=== PATIENT | male | born 1930 | race Caucasian/White ===

== ENCOUNTER 2016-06-02 10:51 | Inpatient (IN) | payer OTHER ==
[~2016-06-02] VITALS: Ht 167.6 cm; Wt 74.0 kg
[~2016-06-02 10:51] MED LIST: ALBU1AER9 INH; ATOR-24 PO; BCTROWC TOP; CARV3.12 PO; CHOL100010 PO; CRAN1CAP PO; DIGO0.122 PO; FLNIN NAE; ISOS30TA3 PO; LACTCHW3 PO; MAGN400T6 PO; META1TAB22 PO; MULTTAB58 PO; OMEP40CA PO; SYMIN160 INH
[2016-06-02 10:58] VITALS: Ht 167.6 cm; Wt 74.0 kg
[2016-06-02] MEDS ORDERED: METHYLPREDNISOLONE 125 MG VIAL IV STA (11:05)
--- NOTE | 2016-06-02 11:09 | EMERGENCY ROOM VISIT NOTE ---
History Report prepared by Miller: Guy Díaz Under the Supervision of: Dr. Raul Lizama M.D. First contact with patient: 10:59 Chief Complaint: SHORTNESS OF BREATH Stated Complaint: RESPIRATORY DIFFICULTY History of Present Illness The patient is an 85 year old male who presents to the Emergency Room with complaints of persistent shortness of breath that started 2 weeks ago. He says he also has a cough, which makes it really hard to sleep at night. The patient says he does not use oxygen at home. His caregiver wanted the patient to be checked for a UTI. He also has been having diarrhea and intermittent sharp abdominal pain. The patient denies any fevers or leg swelling. He is a non- smoker and has no history of asthma or COPD. Per the nursing staff, the patient was 88% oxygen on route and received a Duoneb. The patient says his has been sick for 2 months. Source of History: patient, nursing staff Onset: 2 weeks ago Position: other (global - shortness of breath) Symptom Intensity: 88% oxygen Timing: other (persistent) Associated Symptoms: + abdominal pain, + cough, + diarrhea, No fevers Note: Associated symptoms: Denies leg swelling. Review of Systems See HPI for pertinent positives & negatives. A total of 10 systems reviewed and were otherwise negative. Past Medical & Surgical Medical Problems: (1) Back Surgery (2) Benign hypertension (3) Colostomy (4) COPD (5) COPD exacerbation (6) coronary artery disease with stent (7) Family history of cancer (8) Hyperlipidemia (9) Ileostomy (10) Paraplegia Family History Cancer Heart disease Stroke Social History Smoking Status: Never Smoker Alcohol Use: none Drug Use: none Marital Status: Housing Status: lives with family Occupation Status: retired Current/Historical Medications Scheduled Atorvastatin (Lipitor), 40 MG PO DAILY Budesonide/Formoterol Fumarate (Symbicort 160/4.5 Inhaler ), 1 PUFFS INH BID Carvedilol (Coreg), 3.125 MG PO BIDM Cholecalciferol (Vitamin D 1000 Unit), 1,000 INTER.UNIT PO DAILY Cranberry-Cholecalciferol (Super Cranberry/Vitamin D), 1 TAB PO DAILY Digoxin (Digox), 1 TAB PO DAILY Fluticasone Propionate (Nasal) (Flonase Allergy Relief), 1 SPRAY ABRRY DAILY Isosorbide Mononitrate Ext Rel (Imdur Ext Rel), 15 MG PO QAM Lactobacillus (Lactinex), 1 TABLET PO BID Magnesium Oxide (Mag-Ox), 400 MG PO BID Multiple Vitamin (Multivitamin), 1 TAB PO DAILY Omeprazole (Prilosec), 40 MG PO DAILY Oxybutynin Chloride (Oxybutynin Chloride), 1 TAB PO QID Scheduled PRN Albuterol Sulfate (Proair Respiclick), 1-2 PUFFS INH Q4 PRN for Shortness of Breath Guaifenesin Ext Rel (Mucinex Ext Rel), 600 MG PO Q12 PRN for congestion Metaxalone (Skelaxin), 800 MG PO Q8 PRN for PRN Saline (Saline Nasal Taylor), 1 SPRAY BARRY DAILY PRN for DRYNESS Allergies Coded Allergies: Food (Verified Allergy, Severe, ANAPHYLAXIS WITH RADISHES/ DIFFICULTY BREATHING HORSERADISH, 06/02/16) Banana (Verified Allergy, Mild, 06/02/16) NSAIDs (Verified Allergy, Unknown, internal bleeding, 06/02/16) Sulfa Drugs (Verified Allergy, Unknown, 06/02/16) Physical Exam Vital Signs Date Time Temp Pulse Resp B/P Pulse Ox O2 Delivery O2 Flow Rate FiO2 06/02/16 12:58 101/72 06/02/16 12:51 75 35 100 06/02/16 12:33 65 06/02/16 12:21 69 18 100 06/02/16 12:05 101/69 06/02/16 11:51 71 19 100 06/02/16 11:49 75 20 100 Nasal Cannula 5.0 06/02/16 11:21 75 27 98 06/02/16 11:02 81 06/02/16 10:58 94 Room Air 4.0 06/02/16 10:58 36.8 80 22 134/66 94 Nasal Cannula 4.0 06/02/16 10:58 88 Room Air 06/02/16 10:57 134/66 Physical Exam GENERAL: Patient is ill appearing and in moderate distress. HEENT: No acute trauma, normocephalic atraumatic, mucous membranes moist, no nasal congestion, no scleral icterus. NECK: No stridor, no adenopathy, no meningismus, trachea is midline. LUNGS: Dyspneic and tachypneic. Diffuse tight lung sounds with wheezing and crackles throughout. HEART: Regular rate and rhythm. No murmurs, rubs, gallops appreciated. ABDOMEN: Soft, nontender, mildly hyperactive bowel sounds positive, no masses appreciated, no peritonitis. Ostomy on right abdomen with liquid green stool. BACK: No midline tenderness, no CVA tenderness EXTREMITIES: Normal motion all extremities, no cyanosis, no edema. NEUROLOGIC: Alert and oriented, no acute motor or sensory deficits, no focal weakness, cranial nerves grossly intact. SKIN: No rash, no jaundice, no diaphoresis. Medical Decision & Procedures ER Provider Diagnostic Interpretation: X ray results are stated below per my interpretation and the radiologist's interpretation. CHEST ONE VIEW PORTABLE CLINICAL HISTORY: Shortness of breath. COMPARISON STUDY: Chest radiograph May 20, 2015. FINDINGS: A thoracolumbar spine fusion and left subclavian pacemaker/AICD are in place. No pneumothorax or pleural effusion is present. Lung hyperinflation is suspected. No consolidation is identified. Linear left basilar opacity is suggestive atelectasis. Emphysema is noted. The appearance of the chest is unchanged. There is no evidence of pulmonary edema. IMPRESSION: No acute findings. No change in appearance of the chest. Electronically signed by: Jerzy Pinto M.D. 06/02/2016 11:40 AM Dictated Date/Time: 06/02/2016 11:39 AM Laboratory Results 06/02/16 11:21 Red Blood Count 5.38, Mean Corpuscular Volume 89.2, Mean Corpuscular Hemoglobin 31.0, Mean Corpuscular Hemoglobin Concent 34.8, Mean Platelet Volume 10.4, Neutrophils (%) (Auto) 75.3, Lymphocytes (%) (Auto) 12.1, Monocytes (%) (Auto) 10.0, Eosinophils (%) (Auto) 1.8, Basophils (%) (Auto) 0.5, Neutrophils # (Auto ) 5.74, Lymphocytes # (Auto) 0.92, Monocytes # (Auto) 0.76, Eosinophils # (Auto ) 0.14, Basophils # (Auto) 0.04 06/02/16 11:21 Test 06/02/16 11:20 06/02/16 11:21 06/02/16 11:30 06/02/16 12:00 Bedside Lactic Acid Venous 1.95 mmol/L (0.90-1.70) White Blood Count 7.62 K/uL (4.8-10.8) Red Blood Count 5.38 M/uL (4.7-6.1) Hemoglobin 16.7 g/dL (14.0-18.0) Hematocrit 48.0 % (42-52) Mean Corpuscular Volume 89.2 fL (80-100) Mean Corpuscular Hemoglobin 31.0 pg (25-34) Mean Corpuscular Hemoglobin Concent 34.8 g/dl (32-36) Platelet Count 142 K/uL (130-400) Mean Platelet Volume 10.4 fL (7.4-10.4) Neutrophils (%) (Auto) 75.3 % Lymphocytes (%) (Auto) 12.1 % Monocytes (%) (Auto) 10.0 % Eosinophils (%) (Auto) 1.8 % Basophils (%) (Auto) 0.5 % Neutrophils # (Auto) 5.74 K/uL (1.4-6.5) Lymphocytes # (Auto) 0.92 K/uL (1.2-3.4) Monocytes # (Auto) 0.76 K/uL (0.11-0.59) Eosinophils # (Auto) 0.14 K/uL (0-0.5) Basophils # (Auto) 0.04 K/uL (0-0.2) RDW Standard Deviation 45.3 fL (36.4-46.3) RDW Coefficient of Variation 13.8 % (11.5-14.5) Immature Granulocyte % (Auto) 0.3 % Immature Granulocyte # (Auto) 0.02 K/uL (0.00-0.02) Prothrombin Time 11.2 SECONDS (9.0-12.0) Prothromb Time International Ratio 1.0 (0.9-1.1) Anion Gap 9.0 mmol/L (3-11) Est Creatinine Clear Calc Drug Dose 43.5 ml/min Estimated GFR () 70.1 Estimated GFR (Non- 60.5 BUN/Creatinine Ratio 12.2 (10-20) Calcium Level 8.9 mg/dl (8.5-10.1) Magnesium Level 2.0 mg/dl (1.8-2.4) Total Creatine Kinase 105 U/L (39-308) Creatine Kinase MB 2.7 ng/ml (0.5-3.6) Creatine Kinase MB Ratio 2.6 (0-3.0) Pro-B-Type Natriuretic Peptide 763 pg/ml (0-1800) Digoxin Level 0.9 ng/ml (0.8-2.0) Influenza Type A (RT-PCR) POS for Influ A (NEG) Influenza Type A Antigen Neg for Influ A (NEG) Influenza Type B Antigen Neg for Influ B (NEG) Influenza Type B (RT-PCR) Neg for Influ B (NEG) Urine Color YELLOW Urine Appearance TURBID (CLEAR) Urine pH 7.0 (4.5-7.5) Urine Specific [place] 1.007 (1.000-1.030) Urine Protein NEG (NEG) Urine Glucose (UA) NEG (NEG) Urine Ketones NEG (NEG) Urine Occult Blood 1+ (NEG) Urine Nitrite POS (NEG) Urine Bilirubin NEG (NEG) Urine Urobilinogen NEG (NEG) Urine Leukocyte Esterase LARGE (NEG) Urine WBC (Auto) >30 /hpf (0-5) Urine RBC (Auto) 0-4 /hpf (0-4) Urine Hyaline Casts (Auto) 10-30 /lpf (0-5) Urine Epithelial Cells (Auto) >30 /lpf (0-5) Urine Bacteria (Auto) 4+ (NEG) Urine Crystals AMORPHOUS SEDIMENT (NONE Urine Pathogenic Casts 1-5 GRANULAR CASTS /lpf (0) Date/Time Source Procedure Growth Status 06/02/16 11:35 Stool C.difficile Toxin B Gene (PCR) - Final Positive for C. difficile toxin B gene Complete Laboratory results as reviewed by me. Medications Administered Medications (Trade) Dose Ordered Sig/Eloisa Route Start Time Stop Time Status Last Admin Dose Admin Albuterol/ Ipratropium (Duoneb) 12 ml ONE ONCE INH 06/02/16 11:15 06/02/16 11:16 DC 06/02/16 11:43 12 ML Methylprednisolone Sodium Succinate (Solu-Medrol IV) 80 mg NOW STAT IV 06/02/16 11:05 06/02/16 11:08 DC 06/02/16 11:44 80 MG Levofloxacin (Levaquin / D5W) 750 mg NOW STAT IV 06/02/16 12:53 06/02/16 12:54 DC 06/02/16 13:09 750 MG ECG Indication: SOB/dyspnea Rate (beats per minute): 68 Rhythm: other (ventricularly paced) Findings: no acute ischemic change, no ectopy ED Course 1059: The patient was evaluated in room C2B. A complete history and physical exam was performed. 1105: Ordered Solu-Medrol IV 80 mg IV. 1115: Ordered Duoneb 12 ml INH. 1247: I reevaluated the patient and he notes his breathing has improved but he still feels short of breath. The patient verbally expressed understanding and agreement of the treatment plan. The patient will be evaluated for further treatment. 1253: Ordered Levaquin / D5W 750 mg IV. 1314: I discussed the patient with Dr. Cydney LEONARD hospitalist - he will evaluate the patient for further treatment. Medical Decision Differential: Infectious, Reactive Airway Disease, Pneumonia, Pneumothorax, COPD , CHF, ACS, Pulmonary Embolism, MSK, GI, Dissection, amongst other etiologies entertained. 85 yr old male with acute worsening of cough and found to be hypoxic. he has bronchitis by exam. No clear evidence of CHF. No pneumonia. Symptoms and labs /workup not consistent with ACS. No previous COPD per patient. Does have what appears to be UTI as well. Will treat with Levaquin as normal QTC. Stable other than hypoxia which remained OK on NC. Symptoms consistent with bronchitis and not PE. Consults Time Called: [phone] Consulting Physician: Dr. Cydney LEONARD [facility] Returned Call: [phone] I discussed the patient with Dr. Cydney leon - he will evaluate the patient for further treatment. Impression Primary Impression: Bronchitis Additional Impression: Hypoxia Scribe Attestation The scribe's documentation has been prepared under my direction and personally reviewed by me in its entirety. I confirm that the note above accurately reflects all work, treatment, procedures, and medical decision making performed by me. Departure Information Dispostion Being Evaluated By Hospitalist Referrals Iam Yang M.D. (PCP) Patient Instructions My [facility] Problem Qualifiers
[2016-06-02] MEDS ORDERED: ALBUT/IPRATROP 3MG/0.5MG NEB 3 ML VIAL INH ONE (11:15)
--- NOTE | 2016-06-02 11:41 | DIAGNOSTIC IMAGING REPORT ---
CHEST ONE VIEW PORTABLE CLINICAL HISTORY: Shortness of breath. COMPARISON STUDY: Chest radiograph May 20, 2015. FINDINGS: A thoracolumbar spine fusion and left subclavian pacemaker/AICD are in place. No pneumothorax or pleural effusion is present. Lung hyperinflation is suspected. No consolidation is identified. Linear left basilar opacity is suggestive atelectasis. Emphysema is noted. The appearance of the chest is unchanged. There is no evidence of pulmonary edema. IMPRESSION: No acute findings. No change in appearance of the chest. Electronically signed by: Jerzy Pinto M.D. 06/02/2016 11:40 AM Dictated Date/Time: 06/02/2016 11:39 AM
[2016-06-02 11:49] VITALS: PULSE 75; O2SAT 100
[2016-06-02 12:00] LABS: BASO % 0.5 %; BASO ABS # 0.04 K/uL (0-0.2); COMPLETE YES; EOS % 1.8 %; IG% 0.3 %; LYMPH % 12.1 %; LYMPH ABS # 0.92 K/uL (1.2-3.4); MEAN CELL VOLUME 89.2 fL (80-100); MEAN CORPUSCULAR HGB CONC 34.8 g/dl (32-36); MEAN PLATELET VOLUME 10.4 fL (7.4-10.4); NEUT % 75.3 %; PLATELET COUNT 142 K/uL (130-400); RED BLOOD COUNT 5.38 M/uL (4.7-6.1); WHITE BLOOD COUNT 7.62 K/uL (4.8-10.8)
[2016-06-02 12:05] LABS: CALCIUM 8.9 mg/dl (8.5-10.1); POTASSIUM 3.8 mmol/L (3.5-5.1)
[2016-06-02 12:07] LABS: BUN/CREATININE RATIO 12.2 (10-20); CREATININE 1.1 mg/dl (0.60-1.40)
[2016-06-02 12:12] LABS: CKMB/CK RATIO 2.6 (0-3.0)
[2016-06-02 12:28] LABS: URINE APPEARANCE TURBID (CLEAR); URINE BILIRUBIN NEG (NEG); URINE COLOR YELLOW; URINE EPITHELIAL CELL AUTO >30 /lpf (0-5); URINE NITRITE POS (NEG); URINE SPECIFIC GRAVITY 1.007 (1.000-1.030); UROBILINOGEN NEG (NEG); ZZURINE CULT IF INDIC CATH YES
[2016-06-02 12:30] LABS: MANUAL MICROSCOPIC REQUIRED? NO; REVIEW REQ? YES
[2016-06-02] MEDS ORDERED: LEVAQUIN 750MG / 150ML D5W IV STA (12:53)
[2016-06-02] MEDS ORDERED: DIGO0.1219 PO (13:16)
[2016-06-02] MEDS ORDERED: DTR5 PO (13:16)
[2016-06-02] MEDS ORDERED: ALBU18002 INH (13:16)
[2016-06-02] MEDS ORDERED: FLUT0.15 NAE (13:16)
[2016-06-02] MEDS ORDERED: CHOL100027 PO (13:16)
[2016-06-02] MEDS ORDERED: SALI1SPR3 NAE (13:16)
[2016-06-02] MEDS ORDERED: GFNSR600 PO (13:16)
[2016-06-02] MEDS ORDERED: OMEP40CA41 PO (13:16)
[2016-06-02 13:27] LABS: URINE PATH CASTS 1-5 GRANULAR CASTS /lpf (0)
[2016-06-02] MEDS ORDERED: ACETAMINOPHEN 325 MG TAB PO PRN (13:30)
[2016-06-02] MEDS ORDERED: ALUMINUM/MAGNESIUM/SIMETH (MAALOX MAX) 30 ML UDC PO PRN (13:30)
[2016-06-02] MEDS ORDERED: POLYETHYLENE (MIRALAX) 17 GM PACK PO PRN (13:30)
[2016-06-02] MEDS ORDERED: ONDANSETRON INJ 2 MG/ML 2 ML VIAL IV PRN (13:30)
[2016-06-02] MEDS ORDERED: MAGNESIUM HYDROXIDE SUSP 30 ML UDC PO PRN (13:30)
[2016-06-02] MEDS ORDERED: SODIUM CHLORIDE 0.65% NA SOLN 45 ML (OCEAN) NAE PRN (14:15)
[2016-06-02] MEDS ORDERED: GUAIFENESIN 600 MG TABCR PO PRN (14:15)
[2016-06-02] MEDS ORDERED: METAXALONE PO PRN ×2 (14:15→15:45)
[2016-06-02 14:52] LABS: INFLUENZA B PCR Neg for Influ B (NEG)
[2016-06-02 14:55] LABS: INFLUENZA A PCR POS for Influ A (NEG)
[2016-06-02] MEDS ORDERED: METRONIDAZOLE 500 MG TAB PO ONE (14:55)
[2016-06-02] MEDS ORDERED: SODIUM CHLORIDE 0.9% 1000ML 1,000 ML IV SCH (15:00)
[2016-06-02 15:16] VITALS: BP 117/69; PULSE 74; TEMP 36.8; O2SAT 95
[2016-06-02 15:55] LABS: PROTHROMBIN TIME (PATIENT) 11.2 SECONDS (9.0-12.0)
[2016-06-02 16:00] VITALS: PULSE 73; O2SAT 95
[2016-06-02] MEDS: ALBUT/IPRATROP 3MG/0.5MG NEB 3 ML VIAL INH SCH ×2 (16:00→19:53)
--- NOTE | 2016-06-02 16:25 | DIAGNOSTIC IMAGING REPORT ---
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 Generalized abdominal pain. COMPARISON: Abdominal series 05/20/2015. FINDINGS: Pacemaker wires are noted. Extensive thoracolumbar spinal fusion hardware and an IVC filter are again noted. There is a Gupta catheter overlying the expected location of the bladder. The bones are osteopenic. There is suture material within the deep pelvis. There appears to be a right lower quadrant ostomy. Multiple dilated air-filled loops of large and small bowel. No pneumoperitoneum. No pneumatosis. Stable calcification within the right side the abdomen. IMPRESSION: Mildly dilated gas-filled loops of large and small bowel which is similar to the prior study. This favors an ileus. Electronically signed by: Melquiades Burnett M.D. 06/02/2016 4:24 PM Dictated Date/Time: 06/02/2016 4:20 PM
--- NOTE | 2016-06-02 16:51 | History and Physical ---
History & Physical Date & Time of Service: Jun 02, 2016 at 16:47 Chief Complaint: Copd Exacerbation Primary Care Physician: Iam Yang M.D. History of Present Illness Source: patient Mr. 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 He states that he normally does not have a chronic cough but his has been sick x 2 months and he feels that he got sick from her. He states that he has an intermittently productive cough of clear sputum that has improved some with the use of OTC Mucinex. Does note intermittent wheezing. He does not utilize home O2. En route, pulse ox noted to be 88%. Reports associated intermittent sharp abdominal pain that he states has been present for almost a year and is manageable. Pain is located at the site of his ileostomy. Takes Pepto-Bismol which resolves the pain. Does report associated diarrhea. As well, patient has an indwelling Gupta that gets changed monthly by home nursing which he reports he hasn't had a UTI in about a month. He does get frequent UTIs and follows with Dr. Taveras with [facility]. He does not have sensation from the upper abdomen down to his legs due to his T12 fracture. Patient follows with cardiology franklin Goetz and reports an appointment next in preparation for a new pacemaker. He denies fever/chills, CP, N/V, dysuria, or constipation. In ED, CXR revealed hyperinflated lungs with flattened diaphragm, no consolidation or pleural effusions. Lactic acid 1.95. C. Diff toxin positive. U/ A with 1+ blood, positive nitrite, large leuks, 4+ bacteria. He is afebrile without leukocytosis. He will be admitted to Med/Surg with continuous pulseox and contact precautions for C. Diff. Past Medical/Surgical History Medical Problems: (1) Back Surgery Status: Resolved (2) Benign hypertension Status: Chronic (3) Colostomy Status: Chronic (4) coronary artery disease with stent Status: Chronic (5) Family history of cancer Status: Chronic (6) Hyperlipidemia Status: Chronic (7) Ileostomy Status: Resolved (8) Paraplegia Status: Chronic Family History Cancer Heart disease Stroke Social History Smoking Status: Never Smoker Drug Use: none Marital Status: Housing status: lives with family Occupational Status: retired Immunizations History of Influenza Vaccine: No History of Tetanus Vaccine?: Unknown Tetanus Immunization Date: Jan 22, 2009 History of Pneumococcal: Yes Pneumococcal Date: Mar 27, 2011 History of Hepatitis B Vaccine: Unknown Multi-Drug Resistant Organisms History of MDRO: Yes Type of MDRO: VRE Allergies Coded Allergies: Food (Verified Allergy, Severe, ANAPHYLAXIS WITH RADISHES/ DIFFICULTY BREATHING HORSERADISH, 06/02/16) Banana (Verified Allergy, Mild, 06/02/16) NSAIDs (Verified Allergy, Unknown, internal bleeding, 06/02/16) Sulfa Drugs (Verified Allergy, Unknown, 06/02/16) Home Medications Scheduled Atorvastatin (Lipitor), 40 MG PO DAILY Budesonide/Formoterol Fumarate (Symbicort 160/4.5 Inhaler ), 1 PUFFS INH BID Carvedilol (Coreg), 3.125 MG PO BIDM Cholecalciferol (Vitamin D 1000 Unit), 1,000 INTER.UNIT PO DAILY Cranberry-Cholecalciferol (Super Cranberry/Vitamin D), 1 TAB PO DAILY Digoxin (Digox), 1 TAB PO DAILY Fluticasone Propionate (Nasal) (Flonase Allergy Relief), 1 SPRAY BARRY DAILY Isosorbide Mononitrate Ext Rel (Imdur Ext Rel), 15 MG PO QAM Lactobacillus (Lactinex), 1 TABLET PO BID Magnesium Oxide (Mag-Ox), 400 MG PO BID Multiple Vitamin (Multivitamin), 1 TAB PO DAILY Omeprazole (Prilosec), 40 MG PO DAILY Oxybutynin Chloride (Oxybutynin Chloride), 1 TAB PO QID Scheduled PRN Albuterol Sulfate (Proair Respiclick), 1-2 PUFFS INH Q4 PRN for Shortness of Breath Guaifenesin Ext Rel (Mucinex Ext Rel), 600 MG PO Q12 PRN for congestion Metaxalone (Skelaxin), 800 MG PO Q8 PRN for PRN Saline (Saline Nasal [place]), 1 SPRAY BARRY DAILY PRN for DRYNESS Review of Systems Constitutional: No chills, No fever Eyes: No worsening of vision ENT: No nasal symptoms, No sore throat, No trouble swallowing Respiratory: + cough, + shortness of breath, + wheezing, No sputum Cardiovascular: No chest pain Abdomen: + diarrhea, + pain (sharp at RLQ at site of colostomy), No constipation, No nausea, No vomiting Musculoskeletal: + problem reported Genitourinary - Male: + problem reported (neurogenic bladder) Neurologic: + paralysis (paraplegic 2/2 T12 fracture) Hematologic / Lymphatic: No abnormal bleeding/bruising, No clotting problems Integumentary: No rash Physical Exam Vital Signs Date Time Temp Pulse Resp B/P Pulse Ox O2 Delivery O2 Flow Rate FiO2 06/02/16 15:16 36.8 74 16 117/69 95 Nasal Cannula 2.0 06/02/16 14:53 70 22 104/64 100 06/02/16 14:27 72 20 105/62 100 Nasal Cannula 2.0 06/02/16 12:58 101/72 06/02/16 12:51 75 35 100 06/02/16 12:33 65 06/02/16 12:21 69 18 100 06/02/16 12:05 101/69 06/02/16 11:51 71 19 100 06/02/16 11:49 75 20 100 Nasal Cannula 5.0 06/02/16 11:21 75 27 98 06/02/16 11:02 81 06/02/16 10:58 94 Room Air 4.0 06/02/16 10:58 36.8 80 22 134/66 94 Nasal Cannula 4.0 06/02/16 10:58 88 Room Air 06/02/16 10:57 134/66 General Appearance: WD/WN, no apparent distress, + thin Head: normocephalic, atraumatic Eyes: sclerae normal ENT: hearing grossly normal Neck: supple, no JVD, trachea midline Respiratory/Chest: no respiratory distress, no accessory muscle use, + wheezing (expiratory; scattered throughout) Cardiovascular: regular rate, rhythm, no gallop, no murmur Abdomen/GI: normal bowel sounds, soft, + pertinent finding (ileostomy placed in RLQ with surround skin without erythema or edema) Genitourinary - Male: + pertinent finding (indwelling urinary catheter) Back: normal inspection, no CVA tenderness Extremities/Musculoskelatal: no pedal edema Neurologic/Psych: alert, oriented x 3, + pertinent finding (paraplegic from level of T12) Skin: normal color, warm/dry Diagnostics Laboratory Results Results Past 24 Hours Test 06/02/16 11:20 06/02/16 11:21 06/02/16 11:30 06/02/16 12:00 Range/Units Bedside Lactic Acid Venous 1.95 0.90-1.70 mmol/L White Blood Count 7.62 4.8-10.8 K/uL Red Blood Count 5.38 4.7-6.1 M/uL Hemoglobin 16.7 14.0-18.0 g/dL Hematocrit 48.0 42-52 % Mean Corpuscular Volume 89.2 80-100 fL Mean Corpuscular Hemoglobin 31.0 25-34 pg Mean Corpuscular Hemoglobin Concent 34.8 32-36 g/dl Platelet Count 142 130-400 K/uL Mean Platelet Volume 10.4 7.4-10.4 fL Neutrophils (%) (Auto) 75.3 % Lymphocytes (%) (Auto) 12.1 % Monocytes (%) (Auto) 10.0 % Eosinophils (%) (Auto) 1.8 % Basophils (%) (Auto) 0.5 % Neutrophils # (Auto) 5.74 1.4-6.5 K/uL Lymphocytes # (Auto) 0.92 1.2-3.4 K/uL Monocytes # (Auto) 0.76 0.11-0.59 K/uL Eosinophils # (Auto) 0.14 0-0.5 K/uL Basophils # (Auto) 0.04 0-0.2 K/uL RDW Standard Deviation 45.3 36.4-46.3 fL RDW Coefficient of Variation 13.8 11.5-14.5 % Immature Granulocyte % (Auto) 0.3 % Immature Granulocyte # (Auto) 0.02 0.00-0.02 K/uL Prothrombin Time 11.2 9.0-12.0 SECONDS Prothromb Time International Ratio 1.0 0.9-1.1 Sodium Level 135 136-145 mmol/L Potassium Level 3.8 3.5-5.1 mmol/L Chloride Level 98 98-107 mmol/L Carbon Dioxide Level 28 21-32 mmol/L Anion Gap 9.0 3-11 mmol/L Blood Urea Nitrogen 13 7-18 mg/dl Creatinine 1.10 0.60-1.40 mg/dl Est Creatinine Clear Calc Drug Dose 43.5 ml/min Estimated GFR () 70.1 Estimated GFR (Non- 60.5 BUN/Creatinine Ratio 12.2 10-20 Random Glucose 149 70-99 mg/dl Calcium Level 8.9 8.5-10.1 mg/dl Magnesium Level 2.0 1.8-2.4 mg/dl Total Creatine Kinase 105 39-308 U/L Creatine Kinase MB 2.7 0.5-3.6 ng/ml Creatine Kinase MB Ratio 2.6 0-3.0 Troponin I 0.030 0-0.045 ng/ml Pro-B-Type Natriuretic Peptide 763 0-1800 pg/ml Digoxin Level 0.9 0.8-2.0 ng/ml Influenza Type A (RT-PCR) POS for Influ A NEG Influenza Type A Antigen Neg for Influ A NEG Influenza Type B Antigen Neg for Influ B NEG Influenza Type B (RT-PCR) Neg for Influ B NEG Urine Color YELLOW Urine Appearance TURBID CLEAR Urine pH 7.0 4.5-7.5 Urine Specific [place] 1.007 1.000-1.030 Urine Protein NEG NEG Urine Glucose (UA) NEG NEG Urine Ketones NEG NEG Urine Occult Blood 1+ NEG Urine Nitrite POS NEG Urine Bilirubin NEG NEG Urine Urobilinogen NEG NEG Urine Leukocyte Esterase LARGE NEG Urine WBC (Auto) >30 0-5 /hpf Urine RBC (Auto) 0-4 0-4 /hpf Urine Hyaline Casts (Auto) 10-30 0-5 /lpf Urine Epithelial Cells (Auto) >30 0-5 /lpf Urine Bacteria (Auto) 4+ NEG Urine Crystals AMORPHOUS SEDIMENT NONE PRSENT Urine Pathogenic Casts 1-5 GRANULAR CASTS 0 /lpf Test 06/02/16 14:50 Range/Units Lactic Acid Level 1.9 0.4-2.0 mmol/L Microbiology Results 06/02/16 Blood Culture, Received Pending 06/02/16 Blood Culture, Received Pending 06/02/16 C.difficile Toxin B Gene (PCR) - Final, Complete Positive for C. difficile toxin B gene 06/02/16 Urine Culture, Received Pending Diagnostic Radiology CHEST ONE VIEW PORTABLE CLINICAL HISTORY: Shortness of breath. COMPARISON STUDY: Chest radiograph May 20, 2015. FINDINGS: A thoracolumbar spine fusion and left subclavian pacemaker/AICD are in place. No pneumothorax or pleural effusion is present. Lung hyperinflation is suspected. No consolidation is identified. Linear left basilar opacity is suggestive atelectasis. Emphysema is noted. The appearance of the chest is unchanged. There is no evidence of pulmonary edema. IMPRESSION: No acute findings. No change in appearance of the chest. ABDOMEN 2 VIEWS HISTORY: H/O Pseudomembraneous Colitis with Pos C. Diff. Generalized abdominal pain. COMPARISON: Abdominal series 05/20/2015. FINDINGS: Pacemaker wires are noted. Extensive thoracolumbar spinal fusion hardware and an IVC filter are again noted. There is a Gupta catheter overlying the expected location of the bladder. The bones are osteopenic. There is suture material within the deep pelvis. There appears to be a right lower quadrant ostomy. Multiple dilated air-filled loops of large and small bowel. No pneumoperitoneum. No pneumatosis. Stable calcification within the right side the abdomen. IMPRESSION: Mildly dilated gas-filled loops of large and small bowel which is similar to the prior study. This favors an ileus. EKG Poor data quality, interpretation may be adversely affected Ventricular-paced rhythm Abnormal ECG When compared with ECG of 06-FEB-2015 11:21, Electronic ventricular pacemaker has replaced Sinus rhythm Impression Assessment and Plan Mr. 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 He will be admitted for a COPD exacerbation, UTI, and C. Diff. 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 Taveras (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 Y/N: Yes Risk Level: Moderate Given or contraindicated: Unfractionated heparin SQ Assessment and Plan Attending Addendum: I have physically seen and examined this patient, have directed their medical care, have supervised the PA's activity, and agree with the H&P as noted above, with the following changes: NONE. The patient is awake, well-developed and adequately nourished, alert and oriented 3, normocephalic and atraumatic, lying in bed and in no acute distress. HEENT--PERRL, EOMI, mucous membranes and oropharynx dry. Neck--supple, no JVD or bruits, thyroid normal, trachea midline, no adenopathy. Heart--normal S1 and S2, no extra beats, no murmurs, rubs or gallops. Lungs--crackles and wheezes bilaterally, no respiratory distress, no accessory muscle use. Abdomen--normal bowel sounds and soft, nontender and nondistended, no hernias or masses, no organomegaly. Extremities--no cyanosis, clubbing or edema. There are good distal pulses b/l. Dermatologic--normal skin turgor, normal color, warm and dry, no abnormal lymph nodes, no rash. Neurologic--cranial nerves II through XII grossly intact, motor and sensory examination normal. Psychiatric--normal affect. Assessment and Plan: COPD exacerbation--admitted to [facility] floor. Place on Solu-Medrol 40 mg IV twice a day, levofloxacin 750 mg IV daily, DuoNeb's 4 times a day and every 2 hours when necessary, guaifenesin extended release 600 mg by mouth twice a day. Titrate oxygen only to maintain pulse ox greater than or equal to 91-92%. If his oxygen was titrated much higher than that, he'll start retaining CO2. UTI/neurogenic bladder with indwelling Gupta--treatment with levofloxacin 750 mg IV daily. Follow urine culture and sensitivity. Place on normal saline at 75 ML's per hour 1 L C. difficile colitis/status post subtotal colectomy and ileostomy/suggestion of ileus on current abdominal x-ray--treat with Flagyl 500 mg by mouth 3 times a day. CAD/CBG wall [place] in 2007/history of LAD stent with AICD/pacemaker in 2008/ systolic heart dysfunction with ejection fraction of 30% and large apical aneurysm. Continue carvedilol 3.125 mg by mouth twice a day, Imdur 30 mg by mouth daily and digoxin 125 g by mouth daily.
[2016-06-02] MEDS: DIGOXIN 0.125 MG TAB PO SCH (16:55)
[2016-06-02] MEDS: CARVEDILOL 3.125 MG TAB PO SCH (16:56)
[2016-06-02 19:54] VITALS: PULSE 80; O2SAT 96
[2016-06-02] MEDS: METRONIDAZOLE 500 MG TAB PO SCH (21:52)
[2016-06-02] MEDS: BUDESONIDE/FORMOTEROL FUMARATE 160/4.5 60 PUFFS/INHALER INH SCH (21:52)
[2016-06-02] MEDS: LACTOBACILLUS ACIDOPHILUS (FLORANEX) TAB PO SCH (21:53)
[2016-06-02] MEDS: MAGNESIUM OXIDE 400 MG TAB PO SCH (21:55)
[2016-06-02] MEDS: METHYLPREDNISOLONE IV 40 MG in SYRINGE 0 ML IV SCH (21:55)
[2016-06-02] MEDS: HEPARIN SOD 5000 UNIT/0.5 ML CARP SQ SCH (22:21)
[2016-06-02 23:42] VITALS: BP 121/70; PULSE 70; TEMP 36.6; O2SAT 97
[2016-06-03] VITALS (8 sets, daily range): BP systolic 93–121; BP diastolic 54–71; PULSE 64–120; TEMP 36.5–36.8; O2SAT 92–98
[2016-06-03 06:23] LABS: BASO % 0.5 %; BASO ABS # 0.03 K/uL (0-0.2); COMPLETE YES; HEMATOCRIT 44.1 % (42-52); IG% 0.2 %; LYMPH % 14.4 %; MEAN CELL VOLUME 88.2 fL (80-100); MEAN CORPUSCULAR HEMOGLOBIN 30.6 pg (25-34); MEAN CORPUSCULAR HGB CONC 34.7 g/dl (32-36); MEAN PLATELET VOLUME 10.1 fL (7.4-10.4); MONO % 3.8 %; NEUT % 81.1 %; PLATELET COUNT 147 K/uL (130-400); WHITE BLOOD COUNT 5.54 K/uL (4.8-10.8)
[2016-06-03 06:54] LABS: CALCIUM 8.4 mg/dl (8.5-10.1); CREATININE 0.99 mg/dl (0.60-1.40)
[2016-06-03] MEDS: ALBUT/IPRATROP 3MG/0.5MG NEB 3 ML VIAL INH SCH ×4 (07:27→20:05)
[2016-06-03] MEDS: BUDESONIDE/FORMOTEROL FUMARATE 160/4.5 60 PUFFS/INHALER INH SCH ×2 (08:23→21:27)
[2016-06-03] MEDS: FLUTICASONE PROPIONATE NA SPR 16 GM BTL NAE SCH (08:23)
[2016-06-03] MEDS: LACTOBACILLUS ACIDOPHILUS (FLORANEX) TAB PO SCH ×2 (08:24→21:26)
[2016-06-03] MEDS: METRONIDAZOLE 500 MG TAB PO SCH ×3 (08:24→21:26)
[2016-06-03] MEDS: ISOSORBIDE MONONITRATE 30 MG TABCR PO SCH (08:24)
[2016-06-03] MEDS: CARVEDILOL 3.125 MG TAB PO SCH ×2 (08:24→16:27)
[2016-06-03] MEDS: MULTIVITAMIN TAB PO SCH (08:25)
[2016-06-03] MEDS: ATORVASTATIN 40 MG TAB PO SCH (08:25)
[2016-06-03] MEDS: MAGNESIUM OXIDE 400 MG TAB PO SCH ×2 (08:25→21:25)
[2016-06-03] MEDS: METHYLPREDNISOLONE IV 40 MG in SYRINGE 0 ML IV SCH ×2 (08:50→21:24)
[2016-06-03] MEDS: PANTOprazole SOD 40 MG TAB PO SCH (08:50)
[2016-06-03] MEDS: HEPARIN SOD 5000 UNIT/0.5 ML CARP SQ SCH ×2 (08:54→21:23)
[2016-06-03] MEDS ORDERED: DIGOXIN 0.125 MG TAB PO SCH (09:00)
[2016-06-03] MEDS ORDERED: OSELTAMIVIR PHOSPHATE 75 MG CAP PO ONE (09:15)
[2016-06-03] MEDS: LEVOFLOXACIN / D5W 750 MG in PREMIXED IN D5W 150 ML IV SCH (16:27)
[2016-06-03] MEDS: DIGOXIN 0.125 MG TAB PO SCH (16:28)
[2016-06-03] MEDS: OSELTAMIVIR PHOSPHATE 75 MG CAP PO SCH (21:25)
--- NOTE | 2016-06-03 22:03 | Hospitalist Progress Note ---
Hospitalist Progress Note Date of Service Jun 03, 2016. Subjective Pt evaluation today including: conversation w/ patient, physical exam, chart review, lab review, review of studies, review of inpatient medication list PO Intake: dalila po Voiding: cronin catheter in place Much improved, was flu + and I started him on Tamiflu today. Feeling much better. Constitutional: No fever Respiratory: + cough Cardiovascular: No chest pain Abdomen: No pain Skin: No rash Objective Vital Signs Date Time Temp Pulse Resp B/P Pulse Ox O2 Delivery O2 Flow Rate FiO2 06/03/16 16:29 120 120/67 06/03/16 16:28 75 06/03/16 16:05 72 14 95 Nasal Cannula 2.0 06/03/16 16:00 Nasal Cannula 06/03/16 14:58 36.6 76 20 93/54 96 2.0 06/03/16 11:10 78 12 97 Nasal Cannula 3.0 06/03/16 08:00 Nasal Cannula 06/03/16 07:27 78 12 96 Nasal Cannula 3.0 06/03/16 07:25 36.8 64 20 121/71 98 06/03/16 00:00 Nasal Cannula 2.0 06/02/16 23:42 36.6 70 20 121/70 97 Nasal Cannula 2.0 Physical Exam General Appearance: WD/WN, no apparent distress Eyes: normal inspection, sclerae normal Respiratory/Chest: no respiratory distress, no accessory muscle use, + wheezing (a few scattered wheezes and rhonchi) Cardiovascular: regular rate, rhythm, no edema, no murmur Abdomen: normal bowel sounds, non tender, soft, + pertinent finding (colostomy bag with liquid green stool) Extremities: no pedal edema, no calf tenderness Neurologic/Psychiatric: alert, normal mood/affect, oriented x 3 Skin: normal color, warm/dry, no rash Laboratory Results Last 24 Hours Test 06/02/16 23:39 06/03/16 05:30 Troponin I 0.019 ng/ml White Blood Count 5.54 K/uL Red Blood Count 5.00 M/uL Hemoglobin 15.3 g/dL Hematocrit 44.1 % Mean Corpuscular Volume 88.2 fL Mean Corpuscular Hemoglobin 30.6 pg Mean Corpuscular Hemoglobin Concent 34.7 g/dl Platelet Count 147 K/uL Mean Platelet Volume 10.1 fL Neutrophils (%) (Auto) 81.1 % Lymphocytes (%) (Auto) 14.4 % Monocytes (%) (Auto) 3.8 % Eosinophils (%) (Auto) 0.0 % Basophils (%) (Auto) 0.5 % Neutrophils # (Auto) 4.49 K/uL Lymphocytes # (Auto) 0.80 K/uL Monocytes # (Auto) 0.21 K/uL Eosinophils # (Auto) 0.00 K/uL Basophils # (Auto) 0.03 K/uL RDW Standard Deviation 44.0 fL RDW Coefficient of Variation 13.6 % Immature Granulocyte % (Auto) 0.2 % Immature Granulocyte # (Auto) 0.01 K/uL Sodium Level 138 mmol/L Potassium Level 4.0 mmol/L Chloride Level 103 mmol/L Carbon Dioxide Level 28 mmol/L Anion Gap 7.0 mmol/L Blood Urea Nitrogen 16 mg/dl Creatinine 0.99 mg/dl Est Creatinine Clear Calc Drug Dose 48.3 ml/min Estimated GFR () 79.6 Estimated GFR (Non- 68.7 BUN/Creatinine Ratio 16.0 Random Glucose 137 mg/dl Calcium Level 8.4 mg/dl Magnesium Level 2.0 mg/dl Assessment and Plan Mr. 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 He will be admitted for a COPD exacerbation, Influenza A, UTI, and C. Diff. 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
[2016-06-04] VITALS (10 sets, daily range): BP systolic 112–186; BP diastolic 60–69; PULSE 57–87; TEMP 36.3–36.6; O2SAT 92–99
[2016-06-04 06:17] LABS: HEMATOCRIT 43.2 % (42-52); MEAN CELL VOLUME 88.7 fL (80-100); MEAN CORPUSCULAR HEMOGLOBIN 29.8 pg (25-34); MEAN CORPUSCULAR HGB CONC 33.6 g/dl (32-36); MEAN PLATELET VOLUME 10.3 fL (7.4-10.4); PLATELET COUNT 169 K/uL (130-400); RED BLOOD COUNT 4.87 M/uL (4.7-6.1); WHITE BLOOD COUNT 11.15 K/uL (4.8-10.8)
[2016-06-04 06:53] LABS: BUN/CREATININE RATIO 18.6 (10-20); CALCIUM 8.7 mg/dl (8.5-10.1); CREATININE 1.2 mg/dl (0.60-1.40); POTASSIUM 4.2 mmol/L (3.5-5.1)
[2016-06-04 06:58] LABS: BASO % 0.3 %; BASO ABS # 0.03 K/uL (0-0.2); COMPLETE YES; IG% 0.3 %; LYMPH % 8.7 %; LYMPH ABS # 0.97 K/uL (1.2-3.4); MONO % 3.4 %; NEUT % 87.3 %; TOXIC GRANULATION 1+
[2016-06-04] MEDS: ALBUT/IPRATROP 3MG/0.5MG NEB 3 ML VIAL INH SCH ×4 (07:10→19:50)
[2016-06-04] MEDS: MAGNESIUM OXIDE 400 MG TAB PO SCH ×2 (07:37→20:48)
[2016-06-04] MEDS: METRONIDAZOLE 500 MG TAB PO SCH ×3 (07:37→20:47)
[2016-06-04] MEDS: OSELTAMIVIR PHOSPHATE 75 MG CAP PO SCH ×2 (07:38→20:47)
[2016-06-04] MEDS: MULTIVITAMIN TAB PO SCH (07:38)
[2016-06-04] MEDS: PANTOprazole SOD 40 MG TAB PO SCH (07:39)
[2016-06-04] MEDS: LACTOBACILLUS ACIDOPHILUS (FLORANEX) TAB PO SCH ×2 (07:39→20:48)
[2016-06-04] MEDS: ATORVASTATIN 40 MG TAB PO SCH (07:40)
[2016-06-04] MEDS: ISOSORBIDE MONONITRATE 30 MG TABCR PO SCH (07:40)
[2016-06-04] MEDS: CARVEDILOL 3.125 MG TAB PO SCH ×2 (07:41→17:17)
[2016-06-04] MEDS: FLUTICASONE PROPIONATE NA SPR 16 GM BTL NAE SCH (07:43)
[2016-06-04] MEDS: BUDESONIDE/FORMOTEROL FUMARATE 160/4.5 60 PUFFS/INHALER INH SCH ×2 (07:43→20:46)
[2016-06-04] MEDS: METHYLPREDNISOLONE IV 40 MG in SYRINGE 0 ML IV SCH ×2 (09:46→21:44)
[2016-06-04] MEDS: HEPARIN SOD 5000 UNIT/0.5 ML CARP SQ SCH ×2 (09:52→20:45)
[2016-06-04] MEDS: LEVOFLOXACIN / D5W 750 MG in PREMIXED IN D5W 150 ML IV SCH (16:03)
[2016-06-04] MEDS: DIGOXIN 0.125 MG TAB PO SCH (16:04)
--- NOTE | 2016-06-04 18:53 | Hospitalist Progress Note ---
Hospitalist Progress Note Date of Service Jun 04, 2016. Subjective Pt evaluation today including: conversation w/ patient, physical exam, chart review, lab review, review of studies, review of inpatient medication list PO Intake: dalila po Voiding: cronin catheter in place Had some abd pain this AM but is now resolved. Diarrhea has slowed down, still coughing quite a bit Constitutional: No fever Respiratory: + cough Cardiovascular: No chest pain Abdomen: + diarrhea, No pain Skin: No rash Objective Vital Signs Date Time Temp Pulse Resp B/P Pulse Ox O2 Delivery O2 Flow Rate FiO2 06/04/16 17:13 65 114/62 06/04/16 16:25 80 18 95 Nasal Cannula 2.0 06/04/16 16:04 66 06/04/16 16:00 98 Nasal Cannula 3.0 06/04/16 14:54 36.6 69 20 112/60 98 3.0 06/04/16 11:00 78 18 94 Nasal Cannula 2.0 06/04/16 08:00 Nasal Cannula 2.0 06/04/16 07:39 36.4 57 16 186/69 92 06/04/16 07:24 36.3 70 20 113/66 99 06/04/16 07:10 87 14 96 Nasal Cannula 3.0 06/04/16 00:00 Nasal Cannula 2.0 06/03/16 23:08 36.5 66 20 115/62 92 Nasal Cannula 2.0 06/03/16 20:05 80 14 96 Nasal Cannula 2.0 06/03/16 20:00 Nasal Cannula 2.0 Physical Exam General Appearance: WD/WN, no apparent distress Eyes: normal inspection, sclerae normal ENT: pharynx normal Neck: trachea midline Respiratory/Chest: no respiratory distress, no accessory muscle use, + crackles (at bases bilat, otherwise clear) Cardiovascular: regular rate, rhythm, no edema, no murmur Abdomen: normal bowel sounds, non tender, soft, + pertinent finding (colostomy bag with moderate amount of semi-formed stool) Extremities: no pedal edema Neurologic/Psychiatric: alert, normal mood/affect, oriented x 3 Skin: normal color, warm/dry, no rash Laboratory Results Last 24 Hours Test 06/04/16 05:02 White Blood Count 11.15 K/uL Red Blood Count 4.87 M/uL Hemoglobin 14.5 g/dL Hematocrit 43.2 % Mean Corpuscular Volume 88.7 fL Mean Corpuscular Hemoglobin 29.8 pg Mean Corpuscular Hemoglobin Concent 33.6 g/dl Platelet Count 169 K/uL Mean Platelet Volume 10.3 fL Neutrophils (%) (Auto) 87.3 % Lymphocytes (%) (Auto) 8.7 % Monocytes (%) (Auto) 3.4 % Eosinophils (%) (Auto) 0.0 % Basophils (%) (Auto) 0.3 % Neutrophils # (Auto) 9.74 K/uL Lymphocytes # (Auto) 0.97 K/uL Monocytes # (Auto) 0.38 K/uL Eosinophils # (Auto) 0.00 K/uL Basophils # (Auto) 0.03 K/uL RDW Standard Deviation 44.7 fL RDW Coefficient of Variation 13.7 % Immature Granulocyte % (Auto) 0.3 % Immature Granulocyte # (Auto) 0.03 K/uL Toxic Granulation 1+ Sodium Level 137 mmol/L Potassium Level 4.2 mmol/L Chloride Level 102 mmol/L Carbon Dioxide Level 26 mmol/L Anion Gap 9.0 mmol/L Blood Urea Nitrogen 22 mg/dl Creatinine 1.20 mg/dl Est Creatinine Clear Calc Drug Dose 39.9 ml/min Estimated GFR () 63.1 Estimated GFR (Non- 54.4 BUN/Creatinine Ratio 18.6 Random Glucose 150 mg/dl Calcium Level 8.7 mg/dl Magnesium Level 2.0 mg/dl Assessment and Plan Mr. 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 He will be admitted for a COPD exacerbation, Influenza A, UTI, and C. Diff diarrhea. 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 Taveras ([facility]) for Urology -change out Cronin q1 month CAD S/P Anterior [place] (2007) and LAD Stent with AICD/Pacer (2008), HTN, and Systolic CHF/Ischemic CM/h/o Atrial flutter: follows with Cardiology from [facility]. Not on anticoagulation for unknown reason-may have been lone A-fib/ flutter? 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
[2016-06-05 05:47] LABS: BASO % 0.1 %; BASO ABS # 0.01 K/uL (0-0.2); COMPLETE YES; HEMATOCRIT 41.1 % (42-52); IG% 0.5 %; LYMPH % 6.5 %; MEAN CELL VOLUME 86.5 fL (80-100); MEAN CORPUSCULAR HEMOGLOBIN 29.9 pg (25-34); MEAN CORPUSCULAR HGB CONC 34.5 g/dl (32-36); MEAN PLATELET VOLUME 9.9 fL (7.4-10.4); MONO % 3.7 %; NEUT % 89.2 %; PLATELET COUNT 177 K/uL (130-400); RED BLOOD COUNT 4.75 M/uL (4.7-6.1); WHITE BLOOD COUNT 10.79 K/uL (4.8-10.8)
[2016-06-05 06:29] LABS: BUN/CREATININE RATIO 21.4 (10-20); CALCIUM 8.4 mg/dl (8.5-10.1); CREATININE 1.1 mg/dl (0.60-1.40); MAGNESIUM 1.9 mg/dl (1.8-2.4); POTASSIUM 4.4 mmol/L (3.5-5.1)
[2016-06-05 07:08] VITALS: BP 119/66; PULSE 63; TEMP 36.6; O2SAT 99
[2016-06-05 07:36] VITALS: PULSE 69; O2SAT 100
[2016-06-05] MEDS: ALBUT/IPRATROP 3MG/0.5MG NEB 3 ML VIAL INH SCH ×3 (07:36→15:32)
[2016-06-05] MEDS: METRONIDAZOLE 500 MG TAB PO SCH ×2 (08:40→14:57)
[2016-06-05] MEDS: BUDESONIDE/FORMOTEROL FUMARATE 160/4.5 60 PUFFS/INHALER INH SCH (08:40)
[2016-06-05] MEDS: ISOSORBIDE MONONITRATE 30 MG TABCR PO SCH (08:40)
[2016-06-05] MEDS: ATORVASTATIN 40 MG TAB PO SCH (08:41)
[2016-06-05] MEDS: CARVEDILOL 3.125 MG TAB PO SCH (08:41)
[2016-06-05] MEDS: LACTOBACILLUS ACIDOPHILUS (FLORANEX) TAB PO SCH (08:41)
[2016-06-05] MEDS: MULTIVITAMIN TAB PO SCH (08:41)
[2016-06-05] MEDS: MAGNESIUM OXIDE 400 MG TAB PO SCH (08:41)
[2016-06-05] MEDS: PANTOprazole SOD 40 MG TAB PO SCH (08:41)
[2016-06-05] MEDS: FLUTICASONE PROPIONATE NA SPR 16 GM BTL NAE SCH (08:42)
[2016-06-05] MEDS: OSELTAMIVIR PHOSPHATE 75 MG CAP PO SCH (08:42)
[2016-06-05] MEDS: HEPARIN SOD 5000 UNIT/0.5 ML CARP SQ SCH (08:44)
[2016-06-05] MEDS: METHYLPREDNISOLONE IV 40 MG in SYRINGE 0 ML IV SCH (10:18)
[2016-06-05 11:15] VITALS: PULSE 80; O2SAT 98
[2016-06-05 12:48] VITALS: O2SAT 96
[2016-06-05] MEDS ORDERED: MTR500 PO (13:39)
[2016-06-05] MEDS ORDERED: TMF75 PO (13:39)
[2016-06-05] MEDS ORDERED: PRED10TA PO (13:39)
--- NOTE | 2016-06-05 13:51 | Discharge Instructions ---
Discharge Instructions Admission Reason for Admission: Copd Exacerbation Discharge Discharge Diagnosis / Problem: Influenza A Discharge Goals Goal(s): Decrease discomfort, Improve function, Increase independence Activity Recommendations Activity Limitations: resume your previous activity . Instructions / Follow-Up Instructions / Follow-Up COPD Exacerbation and Influenza: - You did test positive for the flu and we would recommend that family members contact their family doctor as they may need treated. - Get plenty of rest and stay hydrated as these symptoms will resolve on their own - You were treated with Tamiflu to help shorten the course of the flu. -- TAKE TAMIFLU 75 MG TWICE A DAY - TAKE ONE PILL TONIGHT THEN START TWICE A DAY UNTIL ALL PILLS ARE GONE - For the wheezing and COPD we will taper your steroids -- TAKE PREDNISONE 40 MG DAILY X 3 DAYS (START ON 06/06) THEN 30 MG DAILY X 2 DAYS THEN 20 MG X 2 DAYS THEN 10 MG X 1 DAY - Continue your home inhalers as you normally do - You may use Mucinex as needed for congestion Clostridium Difficile Infection: - CONTINUE FLAGYL 500 MG THREE TIMES A DAY. TAKE ONE PILL TONIGHT THEN START THREE PILLS A DAY ON 06/06 AND CONTINUE UNTIL ALL PILLS ARE GONE Indwelling Urinary Catheter: - Recommend having the Gupta catheter changed monthly as previously done Home Medications: - Continue home medications as previously prescribed. Discuss with you family doctor if you have any questions. Follow-Up: - Please see family doctor in 7-10 days Current Hospital Diet Patient's current hospital diet: AHA Diet (Heart Healthy), Low Sodium Diet (2gm Na) Discharge Diet Recommended Diet: AHA Diet (Heart Healthy), Low Sodium Diet (2gm Na) Pending Studies Studies pending at discharge: no Medical Emergencies . Who to Call and When: Medical Emergencies: If at any time you feel your situation is an emergency, please call 911 immediately. . Non-Emergent Contact Non-Emergency issues call your: Primary Care Provider Call Non-Emergent contact if: you have a fever, your pain is unusual for you, you have any medication questions . . "Provider Documentation" section prepared by Yazmin Levi. VTE Core Measure Inpt VTE Proph given/why not?: Unfractionated heparin SQ
[2016-06-05 15:08] VITALS: BP 119/66; PULSE 80; TEMP 36.6; O2SAT 96
[2016-06-05 15:32] VITALS: PULSE 76; O2SAT 93
[2016-06-05] MEDS: DIGOXIN 0.125 MG TAB PO SCH (16:14)
--- NOTE | 2016-06-05 19:13 | Discharge Summary ---
Discharge Summary Admission Date: Jun 02, 2016 at 14:09 Discharge Date: Jun 05, 2016 Discharge Disposition: Home with services Principal Diagnosis: Influenza A and Clostridium Difficile Immunizations: Have You Had Influenza Vaccine: No History of Tetanus Vaccine?: Unknown Tetanus Immunization Date: Jan 22, 2009 History of Pneumococcal: Yes Pneumococcal Date: Mar 27, 2011 History of Hepatitis B Vaccine: Unknown Procedures: 1. CHEST ONE VIEW PORTABLE FINDINGS: A thoracolumbar spine fusion and left subclavian pacemaker/AICD are in place. No pneumothorax or pleural effusion is present. Lung hyperinflation is suspected. No consolidation is identified. Linear left basilar opacity is suggestive atelectasis. Emphysema is noted. The appearance of the chest is unchanged. There is no evidence of pulmonary edema. IMPRESSION: No acute findings. No change in appearance of the chest. 2. ABDOMEN 2 VIEWS COMPARISON: Abdominal series 05/20/2015. FINDINGS: Pacemaker wires are noted. Extensive thoracolumbar spinal fusion hardware and an IVC filter are again noted. There is a Gupta catheter overlying the expected location of the bladder. The bones are osteopenic. There is suture material within the deep pelvis. There appears to be a right lower quadrant ostomy. Multiple dilated air-filled loops of large and small bowel. No pneumoperitoneum. No pneumatosis. Stable calcification within the right side the abdomen. IMPRESSION: Mildly dilated gas-filled loops of large and small bowel which is similar to the prior study. This favors an ileus. Medication Reconciliation New Medications: Prednisone Tab (Prednisone) 10 Mg Tab 10 MG PO DAILY, #23 TAB take 40 mg daily starting on 06/06 x 3 days, then 30 mg daily x 2 days, then 20 mg daily x 2 days, then 10 mg daily x 1 days Metronidazole (Metronidazole) 500 Mg Tab 500 MG PO TID, #22 TAB take one dose tonight then resume three x daily on 06/06 for 7 more days Oseltamivir Phosphate (Tamiflu) 75 Mg Cap 75 MG PO BID, #6 CAP take one dose tonight then resume twice daily on 06/06 until all gone Continued Medications: Albuterol Sulfate (Proair Respiclick) 108 Mcg/Act Aer 1-2 PUFFS INH Q4 PRN for Shortness of Breath Atorvastatin (Lipitor) 40 Mg Tab 40 MG PO DAILY, TAB Budesonide/Formoterol Fumarate (Symbicort 160/4.5 Inhaler ) Aero 1 PUFFS INH BID, INHALER Carvedilol (Coreg) 3.125 Mg Tab 3.125 MG PO BIDM, TAB TAKE WITH MORNING AND EVENING MEALS Cholecalciferol (Vitamin D 1000 Unit) 1,000 Unit Cap 1000 INTER.UNIT PO DAILY, CAP Cranberry-Cholecalciferol (Super Cranberry/Vitamin D) 1 Cap Cap 1 TAB PO DAILY Digoxin (Digox) 125 Mcg Tab 1 TAB PO DAILY Fluticasone Propionate (Nasal) (Flonase Allergy Relief) 50 Mcg/Act Spr 1 SPRAY BARRY DAILY Guaifenesin Ext Rel (Mucinex Ext Rel) 600 Mg Tabcr 600 MG PO Q12 PRN for congestion, TAB Isosorbide Mononitrate Ext Rel (Imdur Ext Rel) 30 Mg Ertab 15 MG PO QAM, TAB TAKE HALF A TABLET DIRECTED. Lactobacillus (Lactinex) Chw 1 TABLET PO BID, CHW Magnesium Oxide (Mag-Ox) 400 Mg Tab 400 MG PO BID, 0 Refills Metaxalone (Skelaxin) 800 Mg Tab 800 MG PO Q8 PRN for PRN, 0 Refills Multiple Vitamin (Multivitamin) 1 Tab Tab 1 TAB PO DAILY, TAB Omeprazole (Prilosec) 40 Mg Cap 40 MG PO DAILY, CAP Oxybutynin Chloride (Oxybutynin Chloride) 5 Mg Tab 1 TAB PO QID start 1 day prior to catheter change and take 3 days after Saline (Saline Nasal [place]) 0.65 % Spr 1 SPRAY BARRY DAILY PRN for DRYNESS Discharge Exam Review of Systems: Constitutional: No chills, No fever Eyes: No worsening of vision ENT: No nasal symptoms, No sore throat, No trouble swallowing Respiratory: + cough, No shortness of breath, No sputum, No wheezing Cardiovascular: No chest pain Abdomen: + diarrhea (improving with more formed stool), No constipation, No nausea, No pain, No vomiting Musculoskeletal: No calf pain, No swelling Neurologic: + paralysis (paraplegic) Endocrine: No fatigue Hematologic / Lymphatic: No abnormal bleeding/bruising, No clotting problems Integumentary: No rash Physical Exam: General Appearance: WD/WN, no apparent distress, + thin Eyes: sclerae normal ENT: hearing grossly normal Neck: supple, no JVD, trachea midline Respiratory/Chest: lungs clear, normal breath sounds, no respiratory distress, no accessory muscle use Cardiovascular: regular rate, rhythm, no gallop, no murmur Abdomen / GI: normal bowel sounds, non tender, soft, + pertinent finding ( RLQ ileostomy bag) Extremities: no pedal edema Neurologic/Psychiatric: alert, oriented x 3 Skin: normal color, warm/dry Hospital Course ADMISSION: Mr. 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 He states that he normally does not have a chronic cough but his has been sick x 2 months and he feels that he got sick from her. He states that he has an intermittently productive cough of clear sputum that has improved some with the use of OTC Mucinex. Does note intermittent wheezing. He does not utilize home O2. En route, pulse ox noted to be 88%. Reports associated intermittent sharp abdominal pain that he states has been present for almost a year and is manageable. Pain is located at the site of his ileostomy. Takes Pepto-Bismol which resolves the pain. Does report associated diarrhea. As well, patient has an indwelling Gupta that gets changed monthly by home nursing which he reports he hasn't had a UTI in about a month. He does get frequent UTIs and follows with Dr. Taveras with [facility]. He does not have sensation from the upper abdomen down to his legs due to his T12 fracture. Patient follows with cardiology is [facility] and reports an appointment next in preparation for a new pacemaker. He denies fever/chills, CP, N/V, dysuria, or constipation. In ED, CXR revealed hyperinflated lungs with flattened diaphragm, no consolidation or pleural effusions. Lactic acid 1.95. C. Diff toxin positive. U/ A with 1+ blood, positive nitrite, large leuks, 4+ bacteria. He is afebrile without leukocytosis. He will be admitted to Med/Surg with continuous pulseox and contact precautions for C. Diff and droplet precautions for Influenza A HOSPITAL COURSE: Mild COPD Exacerbation with Influenza A: IMPROVED - CXR - with evidence of lung hyperinflation with flattened diaphragm; no consolidation or pleural effusion appreciated - Methylprednisolone 40 mg IV BID was instituted while admitted - he was sent home with an Rx for Prednisone taper -- Prednisone 40 mg po daily x 3 days then 30 mg daily x 2 days then 20 mg daily x 2 days then 10 mg daily x 1 day - He was treated with Levofloxacin 750 mg IV daily and will D/C further Abx treatment at this time - He was initiated on Tamiflu due to positive PCR Flu A -- Tamiflu 75 mg BID to finish a 5 day course -- Did instruct that his contact talk with their PCP about influenza treatment - He initially required O2 NC however was successfully weaned to RA prior to D/C Clostridium Difficile diarrhea: H/O 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 Taveras ([facility]) for Urology - Concern for recurrent UTIs given indwelling catheter. Will withhold further Abx treatment for concern for creating resistance - Rx given for a U/A and Cx to be obtained and results sent to PCP for further evaluation and treatment if necessary - Continue [id number] Gupta exchange CAD S/P Anterior [place] (2007) and LAD Stent with AICD/Pacer (2008), HTN, and Systolic CHF/Ischemic CM/h/o Atrial flutter: follows with Cardiology from [facility]. Not on anticoagulation for unknown reason-may have been lone A-fib/ flutter? 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 - Recommend PCP follow-up in 7-10 days Total Time Spent: Greater than 30 minutes This includes examination of the patient, discharge planning, medication reconciliation, and communication with other providers. Discharge Instructions Please refer to the electronic Patient Visit Report (Discharge Instructions) for additional information. Additional Copies To Iam Yang M.D.
[2016-06-06] MEDS ORDERED: LEVOFLOXACIN / D5W 750 MG in PREMIXED IN D5W 150 ML IV SCH (11:00)
== END 2016-06-05 17:26 | disposition home or self-care (01) | DRG 191 ==
LOC: ENRESERVDT → ENRESERVTM → EDBD 10:51 → C.EDC 10:53 → C.4E 14:09 → EDBEDREQ 14:15
PROVIDERS: ADMIT Hospitalist; ATTEND Hospitalist
DX: J44.0 Chronic obstructive pulmonary disease with (acute) lower respiratory infection (principal); G82.20 Paraplegia, unspecified; A04.7 Enterocolitis due to Clostridium difficile; I50.20 Unspecified systolic (congestive) heart failure; N39.0 Urinary tract infection, site not specified; I10 Essential (primary) hypertension; J11.1 Influenza due to unidentified influenza virus with other respiratory manifestations; I25.10 Atherosclerotic heart disease of native coronary artery without angina pectoris; Z95.5 Presence of coronary angioplasty implant and graft; E78.5 Hyperlipidemia, unspecified; N31.9 Neuromuscular dysfunction of bladder, unspecified; Z93.2 Ileostomy status; Z82.3 Family history of stroke; Z82.49 Family history of ischemic heart disease and other diseases of the circulatory system; I25.2 Old myocardial infarction; Z95.0 Presence of cardiac pacemaker; J44.1 Chronic obstructive pulmonary disease with (acute) exacerbation

== ENCOUNTER → 2016-06-12 | Outpatient (CLI) | payer OTHER ==
[~2016-06-12] MED LIST changes: +ALBINS/ INH; +ALBU18002 INH; -ALBU1AER9 INH; +BCTCR/30 EXT; -BCTROWC TOP; +CEFD1CAP14 PO; -CHOL100010 PO; +CHOL100027 PO; +DIGO0.1219 PO; -DIGO0.122 PO; +DTR5 PO; -FLNIN NAE; +FLUT0.15 NAE; +GFNSR600 PO; +MTR500 PO; -OMEP40CA PO; +OMEP40CA41 PO; +PRED10TA PO; +SALI1SPR3 NAE; +TMF75 PO
[2016-06-12 17:23] LABS: URINE APPEARANCE CLEAR (CLEAR); URINE BILIRUBIN NEG (NEG); URINE COLOR YELLOW; URINE EPITHELIAL CELL AUTO 0-5 /lpf (0-5); URINE NITRITE NEG (NEG); URINE PH 5.5 (4.5-7.5); URINE SPECIFIC GRAVITY 1.014 (1.000-1.030); UROBILINOGEN NEG (NEG)
[2016-06-12 17:25] LABS: MANUAL MICROSCOPIC REQUIRED? NO; REVIEW REQ? NO
== END | disposition home or self-care (01) ==
LOC: C.LABPBG 11:40
PROVIDERS: ATTEND Internal Medicine
DX: N39.0 Urinary tract infection, site not specified (principal); R31.9 Hematuria, unspecified

== ENCOUNTER → 2016-11-30 | Outpatient (CLI) | payer OTHER | END | disposition home or self-care (01) | LOC: C.PATHSPEC 17:25 | PROVIDERS: ATTEND Dermatology | DX: L82.1 Other seborrheic keratosis (principal); L57.0 Actinic keratosis ==

== ENCOUNTER 2017-01-04 14:54 | Emergency (ER) | payer OTHER ==
[~2017-01-04] VITALS: Ht 170.2 cm; Wt 67.0 kg
[~2017-01-04 14:54] MED LIST changes: -ALBINS/ INH; -BCTCR/30 EXT; -CEFD1CAP14 PO; -PRED10TA PO
[2017-01-04 15:00] VITALS: Ht 170.2 cm; Wt 67.0 kg
--- NOTE | 2017-01-04 15:50 | EMERGENCY ROOM VISIT NOTE ---
History Report prepared by Miller: Andrea Guidry Under the Supervision of: Dr. Caroline Carnes M.D. 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 The patient is a paraplegic and has a home nurse visit him everyday. Today, the nurse noticed a yellow stain on his pad, however the patient has a Cronin catheter in place. He was placed on antibiotics for the past 2 weeks for a possible UTI. Per the nurse, they believe that he now has an infection on his genitalia. He denies any diarrhea. He is also believes he is having some mild penile swelling. Source of History: patient Onset: recently Position: other () Symptom Intensity: mild Quality: other (Erythema) Timing: constant Associated Symptoms: No diarrhea Note: He also has some penile head swelling. Review of Systems See HPI for pertinent positives & negatives. A total of 10 systems reviewed and were otherwise negative. Past Medical & Surgical Medical Problems: (1) Back Surgery (2) Benign hypertension (3) Colostomy (4) COPD (5) COPD exacerbation (6) coronary artery disease with stent (7) Family history of cancer (8) Hyperlipidemia (9) Ileostomy (10) Paraplegia Family History Cancer Heart disease Stroke Social History Smoking Status: Never Smoker Alcohol Use: none Drug Use: none Marital Status: Housing Status: lives with family Occupation Status: retired Current/Historical Medications Scheduled Atorvastatin (Lipitor), 40 MG PO DAILY Budesonide/Formoterol Fumarate (Symbicort 160/4.5 Inhaler ), 1 PUFFS INH BID Carvedilol (Coreg), 3.125 MG PO BIDM Cefdinir (Omnicef), 300 MG PO Q12H Cholecalciferol (Vitamin D 1000 Unit), 1,000 INTER.UNIT PO DAILY Cranberry-Cholecalciferol (Super Cranberry/Vitamin D), 1 TAB PO DAILY Digoxin (Digox), 1 TAB PO DAILY Fluticasone Propionate (Nasal) (Flonase Allergy Relief), 1 SPRAY BARRY DAILY Isosorbide Mononitrate Ext Rel (Imdur Ext Rel), 30 MG PO QAM Lactobacillus (Lactinex), 1 TABLET PO BID Magnesium Oxide (Mag-Ox), 400 MG PO BID Multiple Vitamin (Multivitamin), 1 TAB PO DAILY Mupirocin 2% (Bactroban 2%), 1 APPLN EXT UD Omeprazole (Prilosec), 40 MG PO DAILY Oxybutynin Chloride (Oxybutynin Chloride), 1 TAB PO QID Scheduled PRN Albuterol Sulf (Proventil 0.083% 2.5MG/3ML), 2.5 MG INH Q6H PRN for Shortness of Breath Albuterol Sulfate (Proair Respiclick), 1-2 PUFFS INH Q4 PRN for Shortness of Breath Guaifenesin Ext Rel (Mucinex Ext Rel), 600 MG PO Q12 PRN for congestion Metaxalone (Skelaxin), 800 MG PO Q8 PRN for PRN Saline (Saline Nasal [place]), 1 SPRAY BARRY DAILY PRN for DRYNESS Allergies Coded Allergies: Food (Verified Allergy, Severe, ANAPHYLAXIS WITH RADISHES/ DIFFICULTY BREATHING HORSERADISH, 01/04/17) Banana (Verified Allergy, Mild, 01/04/17) NSAIDs (Verified Allergy, Unknown, internal bleeding, 01/04/17) Sulfa Antibiotics (Verified Allergy, Unknown, Unknown, 01/04/17) Physical Exam Vital Signs Date Time Temp Pulse Resp B/P (MAP) Pulse Ox O2 Delivery O2 Flow Rate FiO2 01/04/17 20:20 36.4 64 18 108/59 96 01/04/17 19:25 36.4 64 18 108/59 96 Room Air 01/04/17 18:37 62 18 116/68 96 Room Air 01/04/17 17:10 61 16 121/65 97 01/04/17 15:00 36.4 60 16 100/56 94 Room Air Physical Exam Vital signs reviewed. General: Well-appearing elderly male, in no significant distress. HEENT: No scleral icterus, PERRLA, neck supple. Atraumatic. Cardiovascular: Regular rate and rhythm, no extra sounds. Pulmonary: Clear to auscultation bilaterally, normal work of breathing. Abdomen: Soft, nondistended, positive bowel sounds. RLQ ostomy in place with liquid brown stools. : Cronin catheter in place. Mild swelling of the glands. Erythema to the scrotum. No open lesion or drainage appreciated. Musculoskeletal: Atraumatic, no peripheral edema. Atrophy of the bilateral lower extremities. Neurologic: Patient awake alert and oriented x 3. Paraplegic from the chest down. Skin: Warm, dry, no rash Medical Decision & Procedures ER Provider Diagnostic Interpretation: Radiology results as stated below per my review and radiologist interpretation: CHEST ONE VIEW PORTABLE CLINICAL HISTORY: weakness COMPARISON STUDY: 06/02/2016 FINDINGS: The cardiac and mediastinal contours remain stable. There is a left subclavian pacer/defibrillator present. There is no failure. There is no focal pulmonary consolidation. There is minor blunting of the lateral costophrenic angles. Postsurgical changes are present within the thoracic and lumbar spine.[ IMPRESSION: No significant change. Stable minor blunting of the lateral costophrenic angles. No evidence of failure. No evidence of acute parenchymal consolidation Electronically signed by: Clifton Pierre M.D. 01/04/2017 4:41 PM Dictated Date/Time: 01/04/2017 4:40 PM Laboratory Results 01/04/17 16:13 Red Blood Count 5.34, Mean Corpuscular Volume 89.5, Mean Corpuscular Hemoglobin 30.7, Mean Corpuscular Hemoglobin Concent 34.3, Mean Platelet Volume 10.2, Neutrophils (%) (Auto) 68.3, Lymphocytes (%) (Auto) 14.1, Monocytes (%) (Auto) 12.1, Eosinophils (%) (Auto) 4.6, Basophils (%) (Auto) 0.4, Neutrophils # (Auto ) 6.36, Lymphocytes # (Auto) 1.32, Monocytes # (Auto) 1.13, Eosinophils # (Auto ) 0.43, Basophils # (Auto) 0.04 01/04/17 16:13 Test 01/04/17 16:13 01/04/17 16:28 01/04/17 16:32 01/04/17 16:36 White Blood Count 9.33 K/uL (4.8-10.8) Red Blood Count 5.34 M/uL (4.7-6.1) Hemoglobin 16.4 g/dL (14.0-18.0) Hematocrit 47.8 % (42-52) Mean Corpuscular Volume 89.5 fL (80-100) Mean Corpuscular Hemoglobin 30.7 pg (25-34) Mean Corpuscular Hemoglobin Concent 34.3 g/dl (32-36) Platelet Count 170 K/uL (130-400) Mean Platelet Volume 10.2 fL (7.4-10.4) Neutrophils (%) (Auto) 68.3 % Lymphocytes (%) (Auto) 14.1 % Monocytes (%) (Auto) 12.1 % Eosinophils (%) (Auto) 4.6 % Basophils (%) (Auto) 0.4 % Neutrophils # (Auto) 6.36 K/uL (1.4-6.5) Lymphocytes # (Auto) 1.32 K/uL (1.2-3.4) Monocytes # (Auto) 1.13 K/uL (0.11-0.59) Eosinophils # (Auto) 0.43 K/uL (0-0.5) Basophils # (Auto) 0.04 K/uL (0-0.2) RDW Standard Deviation 44.1 fL (36.4-46.3) RDW Coefficient of Variation 13.5 % (11.5-14.5) Immature Granulocyte % (Auto) 0.5 % Immature Granulocyte # (Auto) 0.05 K/uL (0.00-0.02) Anion Gap 5.0 mmol/L (3-11) Est Creatinine Clear Calc Drug Dose 50.7 ml/min Estimated GFR () 82.0 Estimated GFR (Non- 70.8 BUN/Creatinine Ratio 11.7 (10-20) Calcium Level 9.1 mg/dl (8.5-10.1) Total Bilirubin 0.7 mg/dl (0.2-1) Direct Bilirubin 0.2 mg/dl (0-0.2) Aspartate Amino Transf (AST/SGOT) 18 U/L (15-37) Alanine Aminotransferase (ALT/SGPT) 23 U/L (12-78) Alkaline Phosphatase 80 U/L (45-117) Total Creatine Kinase 72 U/L (39-308) Creatine Kinase MB 2.9 ng/ml (0.5-3.6) Creatine Kinase MB Ratio 4.0 (0-3.0) Total Protein 7.2 gm/dl (6.4-8.2) Albumin 3.2 gm/dl (3.4-5.0) Thyroid Stimulating Hormone (TSH) 1.780 uIu/ml (0.300-4.500) Urine Color YELLOW Urine Appearance TURBID (CLEAR) Urine pH 5.5 (4.5-7.5) Urine Specific [place] 1.013 (1.000-1.030) Urine Protein NEG (NEG) Urine Glucose (UA) NEG (NEG) Urine Ketones NEG (NEG) Urine Occult Blood 1+ (NEG) Urine Nitrite NEG (NEG) Urine Bilirubin NEG (NEG) Urine Urobilinogen NEG (NEG) Urine Leukocyte Esterase LARGE (NEG) Urine WBC (Auto) >30 /hpf (0-5) Urine RBC (Auto) 5-10 /hpf (0-4) Urine Hyaline Casts (Auto) 5-10 /lpf (0-5) Urine Epithelial Cells (Auto) 5-10 /lpf (0-5) Urine Bacteria (Auto) 4+ (NEG) Urine Pathogenic Casts /lpf (0) Urine Yeast (Auto) BUD W/ HYPHAE (NONE PRSENT) Bedside Lactic Acid Venous 1.08 mmol/L (0.90-1.70) Bedside Troponin I < 0.030 ng/ml (0-0.045) Date/Time Source Procedure Growth Status 01/04/17 16:28 Urine,Catheterized Urine Culture - Final GREATER THAN THREE TYPES OF ORGANISMS... Complete Laboratory results per my review. Medications Administered Medications (Trade) Dose Ordered Sig/Eloisa Route Start Time Stop Time Status Last Admin Dose Admin Sodium Chloride 1,000 ml @ 125 mls/hr Q8H STAT IV 01/04/17 15:55 01/04/17 21:22 DC 01/04/17 16:34 125 MLS/HR Sodium Chloride 250 ml @ 999 mls/hr Q16M STAT IV 01/04/17 15:55 01/04/17 16:10 DC 01/04/17 16:34 999 MLS/HR Ceftriaxone Sodium (Rocephin Inj) 1 gm NOW STAT IV 01/04/17 18:00 01/04/17 18:02 DC 01/04/17 18:36 1 GM ECG Indication: other (Urinary symptoms) Rate (beats per minute): 60 Rhythm: other (Atrial Paced) Findings: no ectopy, other (Prolonged AV conduction, QTC 414, previous anterior infarct, t-wave abnormality anterolateral lead, flattened t-wave inferiorly) ED Course 153: Past medical records reviewed. The patient was evaluated in room A11A. A complete history and physical examination was performed. 1555: Ordered Sodium Chloride 250 ml @ 999 mls/hr IV, Sodium Chloride 1000 ml @ 125 mls/hr IV 1800: Ordered Rocephin Inj 1 gm IV 2020: Upon reevaluation, the patient appeared to have improvement of his symptoms. I discussed findings with him. He verbalized agreement of the treatment plan. He was discharged home. Medical Decision Differential diagnosis: Etiologies such as metabolic, infection, hypo/hyperglycemia, electrolyte abnormalities, cardiac sources, intracerebral event, toxicologic, neurologic, as well as others were entertained. This pt was evaluated and appeared to be in no distress. PE reveals mild scrotal erythema and ? glans swelling, cronin cath in place. Lab work is fairly unrevealing. CXR was performed as pt has felt generally off the last few days. CXR is clear. UA is concerning for infection. Catheter was changed. He was given 1 gm of IV ceftriaxone. Pt was comfortable with plan for d/c. He was Rx omnicef 300 mg twice daily for 7 days. Pt will f/u with PCP this week and return to the ED for worsening of symptoms or any medical concerns. Medication Reconcilliation Current Medication List: was personally reviewed by me Blood Pressure Screening Patient's blood pressure: Normal blood pressure Blood pressure disposition: Did not require urgent referral Impression Primary Impression: UTI (urinary tract infection) Additional Impression: Chronic indwelling Cronin catheter Scribe Attestation The scribe's documentation has been prepared under my direction and personally reviewed by me in its entirety. I confirm that the note above accurately reflects all work, treatment, procedures, and medical decision making performed by me. Departure Information Dispostion Home / Self-Care Prescriptions Cefdinir (Omnicef) 300 Mg Cap 300 MG PO Q12H for 7 Days, #14 CAP Prov: Caroline Carnes M.D. 01/04/17 Referrals Iam Yang M.D. (PCP) Forms HOME CARE DOCUMENTATION FORM, IMPORTANT VISIT INFORMATION Patient Instructions My [facility] Additional Instructions Diagnosis: UTI, chronic indwelling Cronin catheter Omnicef 300 mg twice a day for 7 days. Drink plenty of clear fluids. Follow-up with your physician this week for reevaluation. Return to the ER for worsening of symptoms or any medical concerns. Problem Qualifiers
[2017-01-04] MEDS ORDERED: SODIUM CHLORIDE 0.9% 1000ML 1,000 ML IV STA (15:55)
[2017-01-04] MEDS ORDERED: SODIUM CHLORIDE 0.9% 250ML 250 ML IV STA (15:55)
[2017-01-04] MEDS ORDERED: ALBINS/ INH (16:04)
[2017-01-04] MEDS ORDERED: BCTCR/30 EXT (16:04)
--- NOTE | 2017-01-04 16:43 | DIAGNOSTIC IMAGING REPORT ---
CHEST ONE VIEW PORTABLE CLINICAL HISTORY: weakness COMPARISON STUDY: 06/02/2016 FINDINGS: The cardiac and mediastinal contours remain stable. There is a left subclavian pacer/defibrillator present. There is no failure. There is no focal pulmonary consolidation. There is minor blunting of the lateral costophrenic angles. Postsurgical changes are present within the thoracic and lumbar spine.[ IMPRESSION: No significant change. Stable minor blunting of the lateral costophrenic angles. No evidence of failure. No evidence of acute parenchymal consolidation Electronically signed by: Clifton Pierre M.D. 01/04/2017 4:41 PM Dictated Date/Time: 01/04/2017 4:40 PM
[2017-01-04 16:46] LABS: BASO % 0.4 %; BASO ABS # 0.04 K/uL (0-0.2); COMPLETE YES; EOS % 4.6 %; HEMATOCRIT 47.8 % (42-52); IG% 0.5 %; LYMPH % 14.1 %; LYMPH ABS # 1.32 K/uL (1.2-3.4); MEAN CELL VOLUME 89.5 fL (80-100); MEAN CORPUSCULAR HEMOGLOBIN 30.7 pg (25-34); MEAN CORPUSCULAR HGB CONC 34.3 g/dl (32-36); MEAN PLATELET VOLUME 10.2 fL (7.4-10.4); MONO % 12.1 %; NEUT % 68.3 %; PLATELET COUNT 170 K/uL (130-400); RED BLOOD COUNT 5.34 M/uL (4.7-6.1); WHITE BLOOD COUNT 9.33 K/uL (4.8-10.8)
[2017-01-04 16:48] LABS: URINE APPEARANCE TURBID (CLEAR); URINE BILIRUBIN NEG (NEG); URINE COLOR YELLOW; URINE NITRITE NEG (NEG); URINE PH 5.5 (4.5-7.5); URINE SPECIFIC GRAVITY 1.013 (1.000-1.030); UROBILINOGEN NEG (NEG); ZZURINE CULT IF INDIC CATH YES
[2017-01-04 16:51] LABS: MANUAL MICROSCOPIC REQUIRED? NO; REVIEW REQ? YES
[2017-01-04 17:06] LABS: BUN/CREATININE RATIO 11.7 (10-20); CALCIUM 9.1 mg/dl (8.5-10.1); CREATININE 0.96 mg/dl (0.60-1.40)
[2017-01-04 17:16] LABS: THYROID STIMULATING HORMONE 1.78 uIu/ml (0.300-4.500)
[2017-01-04] MEDS ORDERED: CEFTRIAXONE SOD INJ 1 GM ADDVIAL IV STA (18:00)
[2017-01-04] MEDS ORDERED: CEFD1CAP14 PO (19:57)
[2017-01-04 20:20] VITALS: BP 108/59; PULSE 64; TEMP 36.4; O2SAT 96
== END 2017-01-04 20:30 | disposition home or self-care (01) ==
LOC: EDBD 14:54 → C.EDA 14:58
DX: T83.518A Infection and inflammatory reaction due to other urinary catheter, initial encounter (principal); Y84.6 Urinary catheterization as the cause of abnormal reaction of the patient, or of later complication, without mention of misadventure at the time of the procedure; G82.20 Paraplegia, unspecified; I10 Essential (primary) hypertension; J44.9 Chronic obstructive pulmonary disease, unspecified; I25.10 Atherosclerotic heart disease of native coronary artery without angina pectoris; Z95.5 Presence of coronary angioplasty implant and graft; Z80.9 Family history of malignant neoplasm, unspecified; Z93.2 Ileostomy status; E78.5 Hyperlipidemia, unspecified; Z82.3 Family history of stroke; Z79.899 Other long term (current) drug therapy

== ENCOUNTER → 2017-01-09 | Outpatient (CLI) | payer OTHER ==
[~2017-01-09] MED LIST changes: +ALBINS/ INH; +BCTCR/30 EXT; +CEFD1CAP14 PO; -MTR500 PO; -TMF75 PO
== END | disposition home or self-care (01) ==
LOC: C.LABSPEC 17:59
PROVIDERS: ATTEND Internal Medicine
DX: R19.7 Diarrhea, unspecified (principal)

== ENCOUNTER 2017-04-05 13:14 | Emergency (ER) | payer OTHER ==
[~2017-04-05 13:14] MED LIST changes: -CEFD1CAP14 PO
[2017-04-05 13:31] VITALS: Ht 168.9 cm
--- NOTE | 2017-04-05 14:20 | EMERGENCY ROOM VISIT NOTE ---
History First contact with patient: 13:43 Chief Complaint: REFERRED BY DOCTOR Stated Complaint: OPEN SORES ON BACK AND BOTTOM History of Present Illness The patient is a 86 year old male who presents to the Emergency Room with complaints of some wounds on his backside and also in the scrotal area that has been going on for approximately 2-3 weeks. The patient has a history of paraplegia from falling off a roof 13 years ago. He has an indwelling Gupta catheter and also an ostomy bag. He has home health care, and resides at home with his . They have been trying to care for his wounds over the last several weeks. The home health care nurses became concerned today that the wounds may be infected. The patient denies any fever, chills, body aches or nausea. The patient's family also said that they're concerned that he might have a UTI. There has been some drainage around the indwelling Gupta catheter Review of Systems 10 system review performed and negative unless noted in HPI or below Past Medical/Surgical History Medical Problems: (1) Back Surgery (2) Benign hypertension (3) Colostomy (4) COPD (5) COPD exacerbation (6) coronary artery disease with stent (7) Family history of cancer (8) Hyperlipidemia (9) Ileostomy (10) Paraplegia Status post defibrillator placement History of C. difficile Family History Cancer Heart disease Stroke Social History Smoking Status: Former Smoker Alcohol Use: none Drug Use: none Marital Status: Housing Status: lives with family Occupation Status: retired Current/Historical Medications Scheduled Atorvastatin (Lipitor), 40 MG PO DAILY Budesonide/Formoterol Fumarate (Symbicort 160/4.5 Inhaler ), 1 PUFFS INH BID Carvedilol (Coreg), 3.125 MG PO BIDM Cholecalciferol (Vitamin D 1000 Unit), 1,000 INTER.UNIT PO DAILY Ciprofloxacin (Cipro), 250 MG PO BID Cranberry-Cholecalciferol (Super Cranberry/Vitamin D), 1 TAB PO DAILY Digoxin (Digox), 1 TAB PO DAILY Escitalopram (Lexapro), 10 MG PO DAILY Fluticasone Propionate (Nasal) (Flonase Allergy Relief), 1 SPRAY BARRY DAILY Isosorbide Mononitrate Ext Rel (Imdur Ext Rel), 30 MG PO QAM Lactobacillus (Lactinex), 1 TABLET PO BID Magnesium Oxide (Mag-Ox), 400 MG PO BID Melatonin (Melatonin), 3 MG PO HS Multiple Vitamin (Multivitamin), 1 TAB PO DAILY Multivitamins/Minerals (Cerovite Advanced Formula), 1 TAB PO QAM Mupirocin 2% (Bactroban 2%), 1 APPLN EXT UD Omeprazole (Prilosec), 40 MG PO DAILY Oxybutynin Chloride (Oxybutynin Chloride), 1 TAB PO QID Scheduled PRN Albuterol Sulf (Proventil 0.083% 2.5MG/3ML), 2.5 MG INH Q6H PRN for Shortness of Breath Albuterol Sulfate (Proair Respiclick), 1-2 PUFFS INH Q4 PRN for Shortness of Breath Guaifenesin Ext Rel (Mucinex Ext Rel), 600 MG PO Q12 PRN for congestion Hydrocortisone (Hydrocortisone 2.5%), 1 APPLN TD DIRECTED PRN for IRRITATION TO BACK AND NECK Metaxalone (Skelaxin), 800 MG PO Q8 PRN for PRN Saline (Saline Nasal [place]), 1 SPRAY BARRY DAILY PRN for DRYNESS Physical Exam Vital Signs Date Time Temp Pulse Resp B/P (MAP) Pulse Ox O2 Delivery O2 Flow Rate FiO2 04/05/17 17:07 36.7 85 16 131/74 94 04/05/17 17:04 85 16 131/74 94 Room Air 04/05/17 13:31 36.7 85 16 95/61 90 Room Air Physical Exam VITALS: Vitals are noted on the nurse's note and reviewed by myself. Vital signs stable. GENERAL: 86-year-old male,, in no acute distress, SKIN: Stage II pressor ulcer approximately 3 cm in diameter noted on the sacral area. Some surrounding erythema noted. No foul odor. There is also an area of excoriation on the upper left groin in the scrotal area. HEAD: Normocephalic atraumatic. MOUTH: Mucous membranes slightly dry NECK: No JVD. HEART: Regular rate and rhythm without murmurs gallops or rubs. LUNGS: Mild diffuse wheeze. No crackles at the bases. No tachypnea. ABDOMEN: Positive bowel sounds x 4.Soft, nontender, without organomegaly. Brown stool and gas in the ostomy. No guarding or rebound tenderness. MUSCULOSKELETAL: Muscle wasting noted in the lower extremities. NEURO: Patient was alert and oriented to person place and time. Full strength in the upper extremities bilaterally. Medical Decision & Procedures ER Provider Diagnostic Interpretation: CXR Patient Name: DAMIEN DOBBS Unit Number: [id number] Dictated: 04/05/171453 Transcribed: 04/05/171453 JA Printed Date/Time: [~ rep prt dt]/[~ rep prt tm] [~ rep ct labl] - [~ rep ct ivnm] [facility] [place] [address] Dictated: 04/05/171453 Transcribed: 04/05/171453 JA Printed Date/Time: [~ rep prt dt]/[~ rep prt tm] [~ rep ct labl] - [~ rep ct ivnm] IMPRESSION: 1. No acute cardiopulmonary findings. No change in appearance of the chest. 2. Small hiatal hernia. Electronically signed by: Jerzy Pinto M.D. 04/05/2017 2:58 PM Dictated Date/Time: 04/05/2017 2:54 PM The status of this report is Signed. Draft = Not yet reviewed or approved by Radiologist. Signed = Reviewed and approved by Radiologist. <AttendingPhy></AttendingPhy> <FamilyPhy>Iam Yang M.D.</FamilyPhy> < PrimaryPhy>Iam Yang M.D.</PrimaryPhy> <UnitNumber>[id number]</UnitNumber> <VisitNumber>[id number]</VisitNumber> <PatientName>DAMIEN DOBBS</ PatientName> <DateOfBirth>1930</DateOfBirth> <Location>[facility]</Location> < ServiceDate>04/05/17</ServiceDate> <MNE>ESINDI</MNE> <OrderingPhy>Christina Martin PA-C</OrderingPhy> <OrderingPhyMNE>f rep ord dr leon</OrderingPhyMNE> < DictatingPhyMNE>f rep dict dr leon</DictatingPhyMNE> <CCListMNE>f rep ct mne</ CCListMNE> <AdmittingPhyMNE>f pt admit dr leon</AdmittingPhyMNE> <AttendingPhyMNE >f pt attend dr leon</AttendingPhyMNE> <ConsultingPhyMNE>f pt consult dr leon</ConsultingPhyMNE> <FamilyPhyMNE>f pt fam dr leon</FamilyPhyMNE> <OtherPhyMNE>f pt other dr leon</OtherPhyMNE> < PrimaryPhyMNE>f pt prim care dr leon</PrimaryPhyMNE> <ReferringPhyMNE>f pt referring dr leon</ReferringPhyMNE> Laboratory Results 04/05/17 14:20 Red Blood Count 5.04, Mean Corpuscular Volume 90.9, Mean Corpuscular Hemoglobin 31.2, Mean Corpuscular Hemoglobin Concent 34.3, Mean Platelet Volume 9.7, Neutrophils (%) (Auto) 71.2, Lymphocytes (%) (Auto) 14.4, Monocytes (%) (Auto) 8.3, Eosinophils (%) (Auto) 5.4, Basophils (%) (Auto) 0.4, Neutrophils # (Auto) 6.36, Lymphocytes # (Auto) 1.29, Monocytes # (Auto) 0.74, Eosinophils # (Auto) 0.48, Basophils # (Auto) 0.04 04/05/17 14:20 Test 04/05/17 14:20 04/05/17 14:45 White Blood Count 8.94 K/uL (4.8-10.8) Red Blood Count 5.04 M/uL (4.7-6.1) Hemoglobin 15.7 g/dL (14.0-18.0) Hematocrit 45.8 % (42-52) Mean Corpuscular Volume 90.9 fL (80-100) Mean Corpuscular Hemoglobin 31.2 pg (25-34) Mean Corpuscular Hemoglobin Concent 34.3 g/dl (32-36) Platelet Count 156 K/uL (130-400) Mean Platelet Volume 9.7 fL (7.4-10.4) Neutrophils (%) (Auto) 71.2 % Lymphocytes (%) (Auto) 14.4 % Monocytes (%) (Auto) 8.3 % Eosinophils (%) (Auto) 5.4 % Basophils (%) (Auto) 0.4 % Neutrophils # (Auto) 6.36 K/uL (1.4-6.5) Lymphocytes # (Auto) 1.29 K/uL (1.2-3.4) Monocytes # (Auto) 0.74 K/uL (0.11-0.59) Eosinophils # (Auto) 0.48 K/uL (0-0.5) Basophils # (Auto) 0.04 K/uL (0-0.2) RDW Standard Deviation 43.7 fL (36.4-46.3) RDW Coefficient of Variation 13.3 % (11.5-14.5) Immature Granulocyte % (Auto) 0.3 % Immature Granulocyte # (Auto) 0.03 K/uL (0.00-0.02) Anion Gap 4.0 mmol/L (3-11) Estimated GFR () 79.0 Estimated GFR (Non- 68.2 BUN/Creatinine Ratio 10.9 (10-20) Calcium Level 8.9 mg/dl (8.5-10.1) Urine Color YELLOW Urine Appearance CLOUDY (CLEAR) Urine pH 8.0 (4.5-7.5) Urine Specific [place] 1.009 (1.000-1.030) Urine Protein NEG (NEG) Urine Glucose (UA) NEG (NEG) Urine Ketones NEG (NEG) Urine Occult Blood TRACE (NEG) Urine Nitrite POS (NEG) Urine Bilirubin NEG (NEG) Urine Urobilinogen NEG (NEG) Urine Leukocyte Esterase LARGE (NEG) Urine WBC (Auto) >30 /hpf (0-5) Urine RBC (Auto) 0-4 /hpf (0-4) Urine Hyaline Casts (Auto) 0 /lpf (0-5) Urine Epithelial Cells (Auto) 0-5 /lpf (0-5) Urine Bacteria (Auto) 3+ (NEG) Medications Administered Medications (Trade) Dose Ordered Sig/Eloisa Route Start Time Stop Time Status Last Admin Dose Admin Ciprofloxacin (Cipro Tab) 500 mg NOW STAT PO 04/05/17 15:29 04/05/17 15:30 DC 04/05/17 15:56 500 MG ED Course Patient was seen and examined Vital signs including blood pressure were reviewed medications list was verified with patient Labs were obtained, and a saline lock was established Imaging was performed The patient was seen and examined by the wound care team. Recommendations were made. A barrier antifungal cream was applied. The patient was reassessed and resting comfortably. We discussed the results of his workup. He voiced understanding. The case was also discussed my supervising physician, who personally evaluated the patient. The patient was given 1 dose of Cipro 500 mg I reviewed discharge instructions the patient. They voiced understanding and had no further questions. Medical Decision Differential diagnosis: Pressure ulcer, wound infection, cellulitis, sepsis, UTI , pneumonia This patient is an 86-year-old male with a history of paraplegia that presents emergency department with a sacral wound and possible UTI. The patient does have a stage II pressure ulcer in the sacral area. There are no signs of significant infection in this area. He also appears to have a fungal infection in the groin area. Wound care was consulted. They recommended an antifungal/ barrier cream twice daily. This was applied. The patient also appears to have a UTI. Past cultures were reviewed. He was given 1 dose of Cipro in the emergency department. Cultures were ordered. He is afebrile. There is no leukocytosis. Renal function is intact. He is nontoxic in appearance. I believe he is stable to be discharged home with close follow-up. The patient and the patient's family are in agreement. They were encouraged to return to the emergency department with any new or concerning symptoms This chart was completed in part utilizing [employer] Speech Voice Recognition software. Attempts were made to minimize the grammatical errors, random word insertions, pronoun errors and incomplete sentences. Any formal questions or concerns about the content, text or information contained within the body of this dictation should be directly addressed to the provider for clarification. Medication Reconcilliation Current Medication List: was personally reviewed by me Blood Pressure Screening Patient's blood pressure: Low blood pressure Blood pressure disposition: Did not require urgent referral Impression Primary Impression: UTI (urinary tract infection) Additional Impression: Pressure ulcer Departure Information Dispostion Home / Self-Care Condition GOOD Prescriptions Ciprofloxacin (CIPRO) 250 Mg Tab 250 MG PO BID for 7 Days, #14 TAB Prov: Christina Martin PA-C 04/05/17 Referrals Iam Yang M.D. (PCP) Patient Instructions My [facility] Additional Instructions Damien was evaluated in the emergency department for a possible urinary tract infection and breakdown in the tailbone area. It appears that he has a stage II pressure ulcer in that area. Please apply an antifungal barrier cream to the affected area twice daily. (Or more frequent as needed for bowel movements/stool leakage) Please take the entire course of Cipro as directed. Please follow-up with your primary care physician within the next 2-3 days for a recheck. They will likely recheck a urinalysis after the course of antibiotics. Please do not hesitate to return to the emergency department with any new, worsening or concerning symptoms; especially, confusion, fever or increased redness in the gluteal area Problem Qualifiers
[2017-04-05 14:35] LABS: BASO % 0.4 %; BASO ABS # 0.04 K/uL (0-0.2); COMPLETE YES; EOS % 5.4 %; HEMATOCRIT 45.8 % (42-52); IG% 0.3 %; LYMPH % 14.4 %; LYMPH ABS # 1.29 K/uL (1.2-3.4); MEAN CELL VOLUME 90.9 fL (80-100); MEAN CORPUSCULAR HEMOGLOBIN 31.2 pg (25-34); MEAN CORPUSCULAR HGB CONC 34.3 g/dl (32-36); MEAN PLATELET VOLUME 9.7 fL (7.4-10.4); MONO % 8.3 %; NEUT % 71.2 %; PLATELET COUNT 156 K/uL (130-400); RED BLOOD COUNT 5.04 M/uL (4.7-6.1); WHITE BLOOD COUNT 8.94 K/uL (4.8-10.8)
[2017-04-05 14:55] LABS: BLOOD UREA NITROGEN 11 mg/dl (7-18); BUN/CREATININE RATIO 10.9 (10-20); CALCIUM 8.9 mg/dl (8.5-10.1); CARBON DIOXIDE 31 mmol/L (21-32); CHLORIDE 100 mmol/L (98-107); CREATININE 0.99 mg/dl (0.60-1.40); GLUCOSE 138 mg/dl (70-99); POTASSIUM 3.8 mmol/L (3.5-5.1); SODIUM 135 mmol/L (136-145)
--- NOTE | 2017-04-05 14:59 | DIAGNOSTIC IMAGING REPORT ---
CHEST ONE VIEW PORTABLE CLINICAL HISTORY: Wheezing. Cough. COMPARISON STUDY: Chest radiograph January 04, 2017. FINDINGS: Note is made of a dual lead left pacemaker and thoracolumbar spine fusion hardware. There is no pneumothorax. Blunting of the left costophrenic angle is unchanged. A small hiatal hernia is noted. Cardiomediastinal is normal. There is no evidence of pulmonary edema. There is no consolidation to suggest pneumonia. IMPRESSION: 1. No acute cardiopulmonary findings. No change in appearance of the chest. 2. Small hiatal hernia. Electronically signed by: Jerzy Pinto M.D. 04/05/2017 2:58 PM Dictated Date/Time: 04/05/2017 2:54 PM
[2017-04-05 15:10] LABS: URINE APPEARANCE CLOUDY (CLEAR); URINE BILIRUBIN NEG (NEG); URINE COLOR YELLOW; URINE EPITHELIAL CELL AUTO 0-5 /lpf (0-5); URINE NITRITE POS (NEG); URINE SPECIFIC GRAVITY 1.009 (1.000-1.030); UROBILINOGEN NEG (NEG)
[2017-04-05 15:15] LABS: MANUAL MICROSCOPIC REQUIRED? NO; REVIEW REQ? NO
--- NOTE | 2017-04-05 15:16 | EMERGENCY ROOM VISIT NOTE ---
ED Visit Note First contact with patient: 13:43 This Patient was discussed with the physician expanded function dental assistant, Christina Martin PA-C. The pertinent historical and physical exam findings were confirmed. I agree with the studies ordered and with the interpretations of these studies. I agree with the disposition and care plan.
[2017-04-05] MEDS ORDERED: CIPROFLOXACIN 500 MG TAB PO STA (15:29)
[2017-04-05] MEDS ORDERED: CIPR250T3 PO (15:39)
[2017-04-05] MEDS ORDERED: MELA3TAB PO (15:45)
[2017-04-05] MEDS ORDERED: ESCI10TA17 PO (15:45)
[2017-04-05] MEDS ORDERED: ANSHCCR/ TD (15:45)
[2017-04-05] MEDS ORDERED: MULT-878 PO (15:45)
[2017-04-05 17:07] VITALS: BP 131/74; PULSE 85; TEMP 36.7; O2SAT 94
== END 2017-04-05 17:08 | disposition home or self-care (01) ==
LOC: C.EDB 13:15
DX: N39.0 Urinary tract infection, site not specified (principal); L89.100 Pressure ulcer of unspecified part of back, unstageable; I10 Essential (primary) hypertension; J44.9 Chronic obstructive pulmonary disease, unspecified; I25.10 Atherosclerotic heart disease of native coronary artery without angina pectoris; E78.5 Hyperlipidemia, unspecified; Z93.2 Ileostomy status; G82.20 Paraplegia, unspecified; Z82.3 Family history of stroke; Z87.891 Personal history of nicotine dependence

== ENCOUNTER 2017-05-16 15:47 | Inpatient (IN) | payer OTHER ==
[~2017-05-16] VITALS: Ht 170.2 cm; Wt 21.9 kg
[~2017-05-16 15:47] MED LIST changes: +ANSHCCR/ TD; +ESCI10TA17 PO; +MELA3TAB PO; +MULT-878 PO
[2017-05-16] MEDS ORDERED: SODIUM CHLORIDE 0.9% 1000ML 1,000 ML IV STA (16:05)
--- NOTE | 2017-05-16 16:12 | EMERGENCY ROOM VISIT NOTE ---
History Report prepared by Miller: Rika Hernandez Under the Supervision of: Dr. Keny Lindo M.D. First contact with patient: 15:56 Stated Complaint: CONFUSION, COUGH, URINARY ISSUES History of Present Illness The patient is an 86 year old male who presents to the Emergency Room brought in by EMS with complaints of persistent weakness since this morning. The patient states that his was concerned that he was having a stroke, because he seemed confused. Per EMS, the patient's blood sugar was 192 and he was administered 500 ml of Sodium Chloride. He notes decreased urine output. He states that he does not feel any different, though he does feel dry. He denies any vomiting or fevers. He notes a cough that has been worsening. He is paralyzed from the waist down, due to a fall in 1974. He has an ileostomy bag on his right abdomen in place. He notes a Gupta catheter in place. He has an implanted pacemaker/defibrillator. He has not received the flu shot this season. Source of History: patient, EMS Onset: since this morning Position: other (global ) Quality: other (weakness) Timing: other (persistent) Associated Symptoms: + cough, No fevers, No vomiting Note: He feels dry. He notes decreased urine output. Review of Systems See HPI for pertinent positives & negatives. A total of 10 systems reviewed and were otherwise negative. Past Medical & Surgical Medical Problems: (1) Back Surgery (2) Benign hypertension (3) Colostomy (4) COPD (5) COPD exacerbation (6) coronary artery disease with stent (7) Family history of cancer (8) Hyperlipidemia (9) Ileostomy (10) Paraplegia Family History Cancer Heart disease Stroke Social History Smoking Status: Former Smoker Alcohol Use: none Drug Use: none Marital Status: Housing Status: lives with family Occupation Status: retired Current/Historical Medications Scheduled Atorvastatin (Lipitor), 40 MG PO DAILY Budesonide/Formoterol Fumarate (Symbicort 160/4.5 Inhaler ), 1 PUFFS INH BID Carvedilol (Coreg), 3.125 MG PO BIDM Cholecalciferol (Vitamin D 1000 Unit), 1,000 INTER.UNIT PO DAILY Cranberry-Cholecalciferol (Super Cranberry/Vitamin D), 1 TAB PO DAILY Digoxin (Digox), 1 TAB PO DAILY Escitalopram (Lexapro), 10 MG PO DAILY Fluticasone Propionate (Nasal) (Flonase Allergy Relief), 1 SPRAY BARRY DAILY Isosorbide Mononitrate Ext Rel (Imdur Ext Rel), 30 MG PO QAM Lactobacillus (Lactinex), 1 TABLET PO BID Magnesium Oxide (Mag-Ox), 400 MG PO BID Melatonin (Melatonin), 3 MG PO HS Multiple Vitamin (Multivitamin), 1 TAB PO DAILY Multivitamins/Minerals (Cerovite Advanced Formula), 1 TAB PO QAM Mupirocin 2% (Bactroban 2%), 1 APPLN EXT UD Omeprazole (Prilosec), 40 MG PO DAILY Oxybutynin Chloride (Oxybutynin Chloride), 1 TAB PO QID Scheduled PRN Albuterol Sulf (Proventil 0.083% 2.5MG/3ML), 2.5 MG INH Q6H PRN for Shortness of Breath Albuterol Sulfate (Proair Respiclick), 1-2 PUFFS INH Q4 PRN for Shortness of Breath Guaifenesin Ext Rel (Mucinex Ext Rel), 600 MG PO Q12 PRN for congestion Hydrocortisone (Hydrocortisone 2.5%), 1 APPLN TD DIRECTED PRN for IRRITATION TO BACK AND NECK Metaxalone (Skelaxin), 800 MG PO Q8 PRN for PRN Saline (Saline Nasal [place]), 1 SPRAY BARRY DAILY PRN for DRYNESS Allergies Coded Allergies: Food (Verified Allergy, Severe, ANAPHYLAXIS WITH RADISHES/ DIFFICULTY BREATHING HORSERADISH, 04/05/17) NSAIDs (Verified Allergy, Severe, internal bleeding, 04/05/17) Banana (Verified Allergy, Mild, 04/05/17) Sulfa Antibiotics (Verified Allergy, Unknown, Unknown, 04/05/17) Physical Exam Vital Signs Date Time Temp Pulse Resp B/P (MAP) Pulse Ox O2 Delivery O2 Flow Rate FiO2 05/16/17 17:30 66 19 111/62 99 Nasal Cannula 2.0 05/16/17 16:38 62 05/16/17 16:18 36.3 60 20 107/69 90 Room Air 05/16/17 16:08 90 Room Air Physical Exam GENERAL: Patient is in no acute distress. HEENT: No acute trauma, normocephalic atraumatic, mucous membranes markedly dry , no nasal congestion, no scleral icterus. NECK: No stridor, no adenopathy, no meningismus, trachea is midline. LUNGS: Clear to auscultation bilaterally, no wheeze, no rhonchi, breath sounds equal. HEART: Without murmurs gallops or rubs, regular rate and rhythm. ABDOMEN: Soft, nontender, bowel sounds positive, no hernias, no peritonitis. Ostomy present with brown stool in the bag. : No cellulitis, Gupta catheter in place. EXTREMITIES: Muscle wasting of lower extremities. No edema. No cellulitis. NEUROLOGIC: No facial droop or slurred speech. No confusion noted. No movement of lower extremities, consistent with past history. No upper extremity pronator drift or cerebellar dysfunction. SKIN: No rash, no jaundice, no diaphoresis. Medical Decision & Procedures ER Provider Diagnostic Interpretation: Radiology results as stated below per my review and radiologist interpretation: SINGLE VIEW CHEST CLINICAL HISTORY: Weakness. Change in mental status. FINDINGS: 2 AP, portable, upright chest radiographs are compared to study dated 04/05/2017. Correlation is made with chest CT dated 09/30/2012. The examination is degraded by portable technique and patient rotation. A 2-lead AICD is unchanged in position and partially obscures the left upper chest. The heart is enlarged and there is atherosclerotic calcification of the thoracic aorta. The pulmonary vasculature is noncongested. Enlargement of the central pulmonary vessels suggests pulmonary artery hypertension. Emphysema and chronic interstitial thickening are similar to previous. There is left basilar atelectasis. A small hiatal hernia is noted. No airspace consolidation or large pleural effusion is identified. No pneumothorax is seen. The skeletal structures are osteopenic. The bony thorax is grossly intact. Extensive thoracolumbar spinal fusion hardware is in place. IMPRESSION: 1. Cardiomegaly and AICD. There is no radiographic evidence of congestive failure. 2. Emphysema. 3. No airspace consolidation or large pleural effusion is identified. Electronically signed by: Keny Shah M.D. 05/16/2017 5:29 PM Dictated Date/Time: 05/16/2017 5:[address]: Impression: No acute intracranial abnormality. Atrophy and microvascular ischemic changes. Laboratory Results 05/16/17 15:19 Red Blood Count 5.29, Mean Corpuscular Volume 91.3, Mean Corpuscular Hemoglobin 31.0, Mean Corpuscular Hemoglobin Concent 34.0, Mean Platelet Volume 10.5, Neutrophils (%) (Auto) 72.6, Lymphocytes (%) (Auto) 12.9, Monocytes (%) (Auto) 9.0, Eosinophils (%) (Auto) 4.7, Basophils (%) (Auto) 0.5, Neutrophils # (Auto) 6.80, Lymphocytes # (Auto) 1.21, Monocytes # (Auto) 0.84, Eosinophils # (Auto) 0.44, Basophils # (Auto) 0.05 05/16/17 15:19 Test 05/16/17 15:19 05/16/17 16:25 05/16/17 17:06 White Blood Count 9.37 K/uL (4.8-10.8) Red Blood Count 5.29 M/uL (4.7-6.1) Hemoglobin 16.4 g/dL (14.0-18.0) Hematocrit 48.3 % (42-52) Mean Corpuscular Volume 91.3 fL (80-100) Mean Corpuscular Hemoglobin 31.0 pg (25-34) Mean Corpuscular Hemoglobin Concent 34.0 g/dl (32-36) Platelet Count 169 K/uL (130-400) Mean Platelet Volume 10.5 fL (7.4-10.4) Neutrophils (%) (Auto) 72.6 % Lymphocytes (%) (Auto) 12.9 % Monocytes (%) (Auto) 9.0 % Eosinophils (%) (Auto) 4.7 % Basophils (%) (Auto) 0.5 % Neutrophils # (Auto) 6.80 K/uL (1.4-6.5) Lymphocytes # (Auto) 1.21 K/uL (1.2-3.4) Monocytes # (Auto) 0.84 K/uL (0.11-0.59) Eosinophils # (Auto) 0.44 K/uL (0-0.5) Basophils # (Auto) 0.05 K/uL (0-0.2) RDW Standard Deviation 43.5 fL (36.4-46.3) RDW Coefficient of Variation 13.1 % (11.5-14.5) Immature Granulocyte % (Auto) 0.3 % Immature Granulocyte # (Auto) 0.03 K/uL (0.00-0.02) Prothrombin Time 11.1 SECONDS (9.0-12.0) Prothromb Time International Ratio 1.1 (0.9-1.1) Activated Partial Thromboplast Time 29.2 SECONDS (21.0-31.0) Partial Thromboplastin Ratio 1.1 Anion Gap 7.0 mmol/L (3-11) Est Creatinine Clear Calc Drug Dose 47.7 ml/min Estimated GFR () 80.0 Estimated GFR (Non- 69.0 BUN/Creatinine Ratio 13.3 (10-20) Calcium Level 8.8 mg/dl (8.5-10.1) Magnesium Level 1.9 mg/dl (1.8-2.4) Total Bilirubin 0.8 mg/dl (0.2-1) Aspartate Amino Transf (AST/SGOT) 20 U/L (15-37) Alanine Aminotransferase (ALT/SGPT) 19 U/L (12-78) Alkaline Phosphatase 73 U/L (45-117) Troponin I 0.020 ng/ml (0-0.045) Total Protein 7.4 gm/dl (6.4-8.2) Albumin 3.3 gm/dl (3.4-5.0) Globulin 4.1 gm/dl (2.5-4.0) Albumin/Globulin Ratio 0.8 (0.9-2) Thyroid Stimulating Hormone (TSH) 1.560 uIu/ml (0.300-4.500) Digoxin Level 1.5 ng/ml (0.8-2.0) Urine Color YELLOW Urine Appearance CLEAR (CLEAR) Urine pH 6.5 (4.5-7.5) Urine Specific [place] 1.011 (1.000-1.030) Urine Protein NEG (NEG) Urine Glucose (UA) NEG (NEG) Urine Ketones NEG (NEG) Urine Occult Blood NEG (NEG) Urine Nitrite POS (NEG) Urine Bilirubin NEG (NEG) Urine Urobilinogen NEG (NEG) Urine Leukocyte Esterase LARGE (NEG) Urine WBC (Auto) >30 /hpf (0-5) Urine RBC (Auto) 0-4 /hpf (0-4) Urine Hyaline Casts (Auto) 1-5 /lpf (0-5) Urine Epithelial Cells (Auto) 0-5 /lpf (0-5) Urine Bacteria (Auto) 2+ (NEG) Influenza Type A Antigen Neg for Influ A (NEG) Influenza Type B Antigen Neg for Influ B (NEG) Lactic Acid Level 1.5 mmol/L (0.4-2.0) Laboratory results reviewed by me. Medications Administered Medications (Trade) Dose Ordered Sig/Eloisa Route Start Time Stop Time Status Last Admin Dose Admin Sodium Chloride 1,000 ml @ 999 mls/hr Q1H1M STAT IV 05/16/17 16:05 05/16/17 17:05 DC 05/16/17 16:05 999 MLS/HR Ceftriaxone Sodium (Rocephin Inj) 1 gm NOW STAT IV 05/16/17 17:22 05/16/17 17:23 DC 05/16/17 17:22 1 GM ECG Indication: weakness Rate (beats per minute): 63 Rhythm: other (AV pacemaker) Findings: no acute ischemic change, no ectopy Change: Patient's electrocardiogram interpreted by me. ED Course 1556: The patient was evaluated in room B11A. A complete history and physical exam was performed. 1605: Ordered Sodium Chloride 1,000 ml @ 999 mls/hr IV 1732: Ordered Rocephin 1 gm IV 1750: I reassessed the patient at this time. He is resting comfortably. I spoke with the patient's family. I discussed the results and treatment plan with the patient. I answered all pertaining questions that he had. He expressed understanding and verbalized agreement. The patient will be further evaluated. 1755: I spoke with Dr. Davidson, hospitalist. We discussed the patient's case. The patient will be evaluated by the [facility] for further management. Medical Decision The patient is a 86 year old male who presents to the ED with complaints of weakness. Differential diagnoses considered include dehydration, infection, stroke, anemia, PNA, UTI, electrolyte imbalance, and viral illness. There is no leukocytosis or concerning anemia. No significant electrolyte abnormality, kidney failure or hepatitis. The patient appears to be in a euthyroid state. There is no coagulopathy. Lactic acid level is not elevated making sepsis less likely. Brain CT shows no acute bleed or mass effect. Chest film does not show pneumonia. Urinalysis is suggestive of infection. Urine culture and blood cultures are pending. EKG shows an AV pacemaker, no acute ischemia. Cardiac enzyme testing 1 is not consistent with acute cardiac injury. Influenza testing is negative. The patient presents with some confusion, weakness and thirst. He appeared dehydrated clinically. I could not find evidence for a focal neurologic deficit that would suggest stroke. The patient received IV saline, IV ceftriaxone. He feels improved. I talked with the patient and his family. Case management has been involved. Given the mental status change, admission/observation is warranted. The on-call hospitalist was consulted. Medication Reconcilliation Current Medication List: was personally reviewed by me Blood Pressure Screening Patient's blood pressure: Normal blood pressure Consults Time Called: 1752 Consulting Physician: Dr. Davidson, hospitalist Returned Call: [address] Davidson, hospitalist. We discussed the patient's case. The patient will be evaluated by the [facility] for further management. Impression Primary Impression: Change in mental status Additional Impressions: Dehydration UTI (urinary tract infection) Scribe Attestation The scribe's documentation has been prepared under my direction and personally reviewed by me in its entirety. I confirm that the note above accurately reflects all work, treatment, procedures, and medical decision making performed by me. Departure Information Dispostion Being Evaluated By Hospitalist Referrals Iam Yang M.D. (PCP) Problem Qualifiers
[2017-05-16 16:23] LABS: BASO % 0.5 %; BASO ABS # 0.05 K/uL (0-0.2); EOS % 4.7 %; EOS ABS # 0.44 K/uL (0-0.5); HEMATOCRIT 48.3 % (42-52); HEMOGLOBIN 16.4 g/dL (14.0-18.0); IG# 0.03 K/uL (0.00-0.02); LYMPH % 12.9 %; LYMPH ABS # 1.21 K/uL (1.2-3.4); MEAN CELL VOLUME 91.3 fL (80-100); MEAN PLATELET VOLUME 10.5 fL (7.4-10.4); MONO ABS # 0.84 K/uL (0.11-0.59); NEUT % 72.6 %; PLATELET COUNT 169 K/uL (130-400); RED CELL DISTRIBUTION WIDTH CV 13.1 % (11.5-14.5); RED CELL DISTRIBUTION WIDTH SD 43.5 fL (36.4-46.3); WHITE BLOOD COUNT 9.37 K/uL (4.8-10.8)
[2017-05-16 16:34] LABS: ALBUMIN 3.3 gm/dl (3.4-5.0); CALCIUM 8.8 mg/dl (8.5-10.1); CREATININE 0.98 mg/dl (0.60-1.40); POTASSIUM 3.7 mmol/L (3.5-5.1)
[2017-05-16 16:36] LABS: INR 1.1 (0.9-1.1); PTT PATIENT 29.2 SECONDS (21.0-31.0)
[2017-05-16 16:45] LABS: TOTAL PROTEIN 7.4 gm/dl (6.4-8.2)
[2017-05-16] MEDS ORDERED: CEFTRIAXONE SOD INJ 1 GM ADDVIAL IV STA (17:22)
--- NOTE | 2017-05-16 17:30 | DIAGNOSTIC IMAGING REPORT ---
SINGLE VIEW CHEST CLINICAL HISTORY: Weakness. Change in mental status. FINDINGS: 2 AP, portable, upright chest radiographs are compared to study dated 04/05/2017. Correlation is made with chest CT dated 09/30/2012. The examination is degraded by portable technique and patient rotation. A 2-lead AICD is unchanged in position and partially obscures the left upper chest. The heart is enlarged and there is atherosclerotic calcification of the thoracic aorta. The pulmonary vasculature is noncongested. Enlargement of the central pulmonary vessels suggests pulmonary artery hypertension. Emphysema and chronic interstitial thickening are similar to previous. There is left basilar atelectasis. A small hiatal hernia is noted. No airspace consolidation or large pleural effusion is identified. No pneumothorax is seen. The skeletal structures are osteopenic. The bony thorax is grossly intact. Extensive thoracolumbar spinal fusion hardware is in place. IMPRESSION: 1. Cardiomegaly and AICD. There is no radiographic evidence of congestive failure. 2. Emphysema. 3. No airspace consolidation or large pleural effusion is identified. Electronically signed by: Keny Shah M.D. 05/16/2017 5:29 PM Dictated Date/Time: 05/16/2017 5:27 PM
[2017-05-16 17:33] LABS: INFLUENZA B ANTIGEN Neg for Influ B (NEG)
[2017-05-16] MEDS ORDERED: GUAIFENESIN 600 MG TABCR PO PRN (18:15)
[2017-05-16] MEDS ORDERED: SODIUM CHLORIDE 0.65% NA SOLN 45 ML (OCEAN) NAE PRN (18:15)
[2017-05-16] MEDS ORDERED: HYDROCORTISONE 2.5% CR 30 GM TUBE EXT PRN (18:15)
[2017-05-16] MEDS ORDERED: MAGNESIUM HYDROXIDE SUSP 30 ML UDC PO PRN (18:15)
[2017-05-16] MEDS ORDERED: ONDANSETRON INJ 2 MG/ML 2 ML VIAL IV PRN (18:15)
[2017-05-16] MEDS ORDERED: ALBUTEROL HFA 8 GM INHALER INH PRN (18:15)
[2017-05-16] MEDS ORDERED: METAXALONE 800 MG TAB PO PRN (18:15)
[2017-05-16] MEDS ORDERED: MUPIROCIN 2% OINT 22 GM TUBE EXT PRN (18:15)
[2017-05-16] MEDS ORDERED: ACETAMINOPHEN 325 MG TAB PO PRN (18:15)
[2017-05-16] MEDS ORDERED: ALBUTEROL 0.083% NEBU SOLN 3 ML VIAL INH PRN (18:15)
--- NOTE | 2017-05-16 18:15 | DIAGNOSTIC IMAGING REPORT ---
HEAD CT NONCONTRAST CT DOSE: 623.48 mGy.cm HISTORY: EVALUATE ALTERED MENTAL STATUS/WEAKNESS TECHNIQUE: Multiaxial CT images of the head were performed without the use of intravenous contrast. Automated exposure control was utilized for this study. A dose lowering technique was utilized adhering to the principles of ALARA. Comparison: Head CT 09/28/2012. Findings: The paranasal sinuses and mastoid air cells are clear. The calvarium and skull base are intact. There is no mass, hematoma, midline shift, acute infarct. White matter hypodensity is nonspecific but suggestive of microvascular ischemic change. The ventricles and sulci demonstrate mild age-related involutional changes. 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 Impression: No acute intracranial abnormality. Atrophy and microvascular ischemic changes. Electronically signed by: Melquiades Burnett M.D. 05/16/2017 6:13 PM Dictated Date/Time: 05/16/2017 6:10 PM
--- NOTE | 2017-05-16 18:30 | History and Physical ---
History & Physical Date & Time of Service: May 16, 2017 at 18:22 Chief Complaint: Confusion, Cough, Urinary Issues Primary Care Physician: Iam Yang M.D. History of Present Illness Source: patient, family 86 y/o M who was brought to the ED by his family for concerns regarding stroke and dehydration. states that pt was having a difficult time speaking today. He was not confused or unable to move his UE. He has LE paraplegia at baseline. nursing came in and looked at pt's tongue and decreased skin turgor and suggested he was dehydrated. Pt has not been eating and drinking much lately. states he does well at breakfast, but then not much else throughout the day. He empties his cronin and has had decreased UOP as well. Pt denies fever, SOB, chest pain, abd pain, n/v/c/d, LE pain or swelling. Pt uses oxybutynin for years at QD dosing. This is not a new medication. Past Medical/Surgical History Medical Problems: (1) Back Surgery Status: Resolved (2) Benign hypertension Status: Chronic (3) Colostomy Status: Chronic (4) coronary artery disease with stent Status: Chronic (5) Family history of cancer Status: Chronic (6) Hyperlipidemia Status: Chronic (7) Ileostomy Status: Resolved (8) Paraplegia Status: Chronic COPD GERD CAD s/p pacer/defibrillator/stent GERD Depression Family History Cancer Heart disease Stroke Social History Smoking Status: Never Smoker Alcohol Use: occasionally (rarely) Drug Use: none Marital Status: Housing status: lives with family Occupational Status: retired Immunizations History of Influenza Vaccine: No History of Tetanus Vaccine?: Unknown Tetanus Immunization Date: Jan 22, 2009 History of Pneumococcal: Yes Pneumococcal Date: Mar 27, 2011 History of Hepatitis B Vaccine: Unknown Multi-Drug Resistant Organisms History of MDRO: Yes Type of MDRO: VRE Allergies Coded Allergies: Food (Verified Allergy, Severe, ANAPHYLAXIS WITH RADISHES/ DIFFICULTY BREATHING HORSERADISH, 04/05/17) NSAIDs (Verified Allergy, Severe, internal bleeding, 04/05/17) Banana (Verified Allergy, Mild, 04/05/17) Sulfa Antibiotics (Verified Allergy, Unknown, Unknown, 04/05/17) Home Medications Scheduled Atorvastatin (Lipitor), 40 MG PO DAILY Budesonide/Formoterol Fumarate (Symbicort 160/4.5 Inhaler ), 1 PUFFS INH BID Carvedilol (Coreg), 3.125 MG PO BIDM Cholecalciferol (Vitamin D 1000 Unit), 1,000 INTER.UNIT PO DAILY Cranberry-Cholecalciferol (Super Cranberry/Vitamin D), 1 TAB PO DAILY Digoxin (Digox), 1 TAB PO DAILY Escitalopram (Lexapro), 10 MG PO DAILY Fluticasone Propionate (Nasal) (Flonase Allergy Relief), 1 SPRAY BARRY DAILY Isosorbide Mononitrate Ext Rel (Imdur Ext Rel), 30 MG PO QAM Lactobacillus (Lactinex), 1 TABLET PO BID Magnesium Oxide (Mag-Ox), 400 MG PO BID Melatonin (Melatonin), 3 MG PO HS Multiple Vitamin (Multivitamin), 1 TAB PO DAILY Multivitamins/Minerals (Cerovite Advanced Formula), 1 TAB PO QAM Mupirocin 2% (Bactroban 2%), 1 APPLN EXT UD Omeprazole (Prilosec), 40 MG PO DAILY Oxybutynin Chloride (Oxybutynin Chloride), 1 TAB PO QID Scheduled PRN Albuterol Sulf (Proventil 0.083% 2.5MG/3ML), 2.5 MG INH Q6H PRN for Shortness of Breath Albuterol Sulfate (Proair Respiclick), 1-2 PUFFS INH Q4 PRN for Shortness of Breath Guaifenesin Ext Rel (Mucinex Ext Rel), 600 MG PO Q12 PRN for congestion Hydrocortisone (Hydrocortisone 2.5%), 1 APPLN TD DIRECTED PRN for IRRITATION TO BACK AND NECK Metaxalone (Skelaxin), 800 MG PO Q8 PRN for PRN Saline (Saline Nasal [place]), 1 SPRAY BARRY DAILY PRN for DRYNESS Review of Systems Pertinent positives and negatives reviewed in HPI--all others negative Physical Exam Vital Signs Date Time Temp Pulse Resp B/P (MAP) Pulse Ox O2 Delivery O2 Flow Rate FiO2 05/16/17 17:30 66 19 111/62 99 Nasal Cannula 2.0 05/16/17 16:38 62 05/16/17 16:18 36.3 60 20 107/69 90 Room Air 05/16/17 16:08 90 Room Air General Appearance: WD/WN, no apparent distress Head: normocephalic, atraumatic Eyes: normal inspection, sclerae normal Respiratory/Chest: normal breath sounds, no respiratory distress Cardiovascular: regular rate, rhythm, no edema, normal peripheral pulses Abdomen/GI: non tender, soft Extremities/Musculoskelatal: no calf tenderness, no pedal edema Neurologic/Psych: alert, normal mood/affect, oriented x 3, + pertinent finding (occasionally with difficulty with words c/w tongue thickness) Skin: normal color, warm/dry, + pertinent finding (decreased skin turgor) Diagnostics Laboratory Results Results Past 24 Hours Test 05/16/17 15:19 05/16/17 16:25 05/16/17 17:06 Range/Units White Blood Count 9.37 4.8-10.8 K/uL Red Blood Count 5.29 4.7-6.1 M/uL Hemoglobin 16.4 14.0-18.0 g/dL Hematocrit 48.3 42-52 % Mean Corpuscular Volume 91.3 80-100 fL Mean Corpuscular Hemoglobin 31.0 25-34 pg Mean Corpuscular Hemoglobin Concent 34.0 32-36 g/dl Platelet Count 169 130-400 K/uL Mean Platelet Volume 10.5 7.4-10.4 fL Neutrophils (%) (Auto) 72.6 % Lymphocytes (%) (Auto) 12.9 % Monocytes (%) (Auto) 9.0 % Eosinophils (%) (Auto) 4.7 % Basophils (%) (Auto) 0.5 % Neutrophils # (Auto) 6.80 1.4-6.5 K/uL Lymphocytes # (Auto) 1.21 1.2-3.4 K/uL Monocytes # (Auto) 0.84 0.11-0.59 K/uL Eosinophils # (Auto) 0.44 0-0.5 K/uL Basophils # (Auto) 0.05 0-0.2 K/uL RDW Standard Deviation 43.5 36.4-46.3 fL RDW Coefficient of Variation 13.1 11.5-14.5 % Immature Granulocyte % (Auto) 0.3 % Immature Granulocyte # (Auto) 0.03 0.00-0.02 K/uL Prothrombin Time 11.1 9.0-12.0 SECONDS Prothromb Time International Ratio 1.1 0.9-1.1 Activated Partial Thromboplast Time 29.2 21.0-31.0 SECONDS Partial Thromboplastin Ratio 1.1 Sodium Level 131 136-145 mmol/L Potassium Level 3.7 3.5-5.1 mmol/L Chloride Level 94 98-107 mmol/L Carbon Dioxide Level 30 21-32 mmol/L Anion Gap 7.0 3-11 mmol/L Blood Urea Nitrogen 13 7-18 mg/dl Creatinine 0.98 0.60-1.40 mg/dl Est Creatinine Clear Calc Drug Dose 47.7 ml/min Estimated GFR () 80.0 Estimated GFR (Non- 69.0 BUN/Creatinine Ratio 13.3 10-20 Random Glucose 150 70-99 mg/dl Calcium Level 8.8 8.5-10.1 mg/dl Magnesium Level 1.9 1.8-2.4 mg/dl Total Bilirubin 0.8 0.2-1 mg/dl Aspartate Amino Transf (AST/SGOT) 20 15-37 U/L Alanine Aminotransferase (ALT/SGPT) 19 12-78 U/L Alkaline Phosphatase 73 45-117 U/L Troponin I 0.020 0-0.045 ng/ml Total Protein 7.4 6.4-8.2 gm/dl Albumin 3.3 3.4-5.0 gm/dl Globulin 4.1 2.5-4.0 gm/dl Albumin/Globulin Ratio 0.8 0.9-2 Thyroid Stimulating Hormone (TSH) 1.560 0.300-4.500 uIu/ml Digoxin Level 1.5 0.8-2.0 ng/ml Urine Color YELLOW Urine Appearance CLEAR CLEAR Urine pH 6.5 4.5-7.5 Urine Specific [place] 1.011 1.000-1.030 Urine Protein NEG NEG Urine Glucose (UA) NEG NEG Urine Ketones NEG NEG Urine Occult Blood NEG NEG Urine Nitrite POS NEG Urine Bilirubin NEG NEG Urine Urobilinogen NEG NEG Urine Leukocyte Esterase LARGE NEG Urine WBC (Auto) >30 0-5 /hpf Urine RBC (Auto) 0-4 0-4 /hpf Urine Hyaline Casts (Auto) 1-5 0-5 /lpf Urine Epithelial Cells (Auto) 0-5 0-5 /lpf Urine Bacteria (Auto) 2+ NEG Influenza Type A Antigen Neg for Influ A NEG Influenza Type B Antigen Neg for Influ B NEG Lactic Acid Level 1.5 0.4-2.0 mmol/L Microbiology Results 05/16/17 Blood Culture, Received Pending 05/16/17 Blood Culture, Received Pending 05/16/17 Urine Culture, Received Pending Diagnostic Radiology CT head neg for acute CXR neg for acute Impression Assessment and Plan 86 y/o M who was admitted on 05/16 for dehydration/UTI UTI/dehydration: likely the cause for speech issues If not resolved, will have speech therapy see pt CT head neg for acute UA noted Started on ceftriaxone in the ED, will continue Urine and blood cx pending, prior sensitivity to rocephin WBC WNL Flu neg Dig level WNL Dehydration: in the setting of poor PO intake with UTI Monitor on IVF COPD: no exacerbation, continue home meds Paraplegia with chronic cronin and ileostomy: at baseline Has cronin changed with urology due to h/o traumatic cronin insertion CAD/pacer/defibrillator/stent: continue home meds Other: Full code, although specifies that he does not want prolonged mechanical life support or feeding tubes. Family is present and agrees SCDs for DVT proph as pt is immobile at baseline Reg diet with IVF Level of Care Med/Surg Resuscitation Status FULL RESUSCITATION VTE Prophylaxis VTE Risk Assessment Done? Y/N: Yes Risk Level: Low
[2017-05-16 20:01] VITALS: O2SAT 95
[2017-05-16 20:15] VITALS: BP 123/71; PULSE 69; TEMP 36.6; O2SAT 93
[2017-05-16] MEDS ORDERED: NON-FORMULARY MEDICATION (Melatonin 3 MG) PO SCH (21:00)
[2017-05-16] MEDS: MAGNESIUM OXIDE 400 MG TAB PO SCH (22:25)
[2017-05-16] MEDS: BUDESONIDE/FORMOTEROL FUMARATE 160/4.5 60 PUFFS/INHALER INH SCH (22:25)
[2017-05-16] MEDS: OXYBUTYNIN CHLORIDE 5 MG TAB PO SCH (22:26)
[2017-05-16] MEDS: LACTOBACILLUS ACIDOPHILUS (FLORANEX) TAB PO SCH (22:26)
[2017-05-16] MEDS: NSS + 20MEQ KCL 1000ML 1,000 ML IV SCH (22:29)
[2017-05-16 22:37] VITALS: BP 123/71; PULSE 69; TEMP 36.6; Ht 170.2 cm; Wt 21.9 kg
[2017-05-17 07:22] LABS: CALCIUM 8.4 mg/dl (8.5-10.1); CREATININE 0.78 mg/dl (0.60-1.40); POTASSIUM 3.8 mmol/L (3.5-5.1)
[2017-05-17 07:44] VITALS: BP 160/81; PULSE 73; TEMP 36.5; O2SAT 93
[2017-05-17] MEDS: MAGNESIUM OXIDE 400 MG TAB PO SCH ×3 (07:58→21:18)
[2017-05-17] MEDS: PANTOprazole SOD 40 MG TAB PO SCH (07:58)
[2017-05-17] MEDS: CHOLECALCIFEROL 1000 INTER.UNIT TAB PO SCH (07:58)
[2017-05-17] MEDS: FLUTICASONE PROPIONATE NA SPR 16 GM BTL NAE SCH (07:58)
[2017-05-17] MEDS: BUDESONIDE/FORMOTEROL FUMARATE 160/4.5 60 PUFFS/INHALER INH SCH ×2 (07:58→20:00)
[2017-05-17] MEDS: ESCITALOPRAM OXALATE 10 MG TAB PO SCH (07:59)
[2017-05-17] MEDS: LACTOBACILLUS ACIDOPHILUS (FLORANEX) TAB PO SCH ×3 (07:59→21:17)
[2017-05-17] MEDS: ISOSORBIDE MONONITRATE 30 MG TABCR PO SCH (07:59)
[2017-05-17] MEDS: CEROVITE ADV FORMULA TAB PO SCH (07:59)
[2017-05-17] MEDS: ATORVASTATIN 40 MG TAB PO SCH (07:59)
[2017-05-17] MEDS: OXYBUTYNIN CHLORIDE 5 MG TAB PO SCH ×5 (07:59→21:17)
[2017-05-17] MEDS ORDERED: CHOLECALCIFEROL PO SCH (08:00)
[2017-05-17] MEDS: CARVEDILOL 3.125 MG TAB PO SCH ×2 (08:00→16:40)
[2017-05-17] MEDS ORDERED: CRANBERRY PO SCH (08:00)
[2017-05-17] MEDS: NSS + 20MEQ KCL 1000ML 1,000 ML IV SCH ×2 (08:51→18:38)
[2017-05-17] MEDS ORDERED: MULTIVITAMIN TAB PO SCH (09:00)
--- NOTE | 2017-05-17 11:39 | Progress Note ---
Subjective Date of Service: May 17, 2017. Subjective Pt evaluation today including: conversation w/ patient Pt states he feels 80% improved today. He feels his speech is back at its usual. His congestion/cough are also better. He ate without issue today. Pt denies fever, SOB, chest pain, abd pain, n/v/c/d, LE pain or swelling. Problem List Medical Problems: (1) Bronchitis Status: Acute (2) Catheter-associated urinary tract infection Status: Acute (3) Change in mental status Status: Acute (4) Chronic indwelling Cronin catheter Status: Acute (5) Dehydration Status: Acute (6) Fever Status: Acute (7) Pressure ulcer Status: Acute (8) Pulmonary edema Status: Acute (9) UTI (urinary tract infection) Status: Acute Review of Systems All Other Systems: Reviewed and Negative Objective Vital Signs Date Time Temp Pulse Resp B/P (MAP) Pulse Ox O2 Delivery O2 Flow Rate FiO2 05/17/17 08:15 Room Air 05/17/17 07:44 36.5 73 18 160/81 (107) 93 Room Air 05/17/17 00:00 Room Air 2.0 05/16/17 22:37 36.6 69 18 123/71 Room Air 05/16/17 20:15 36.6 69 18 123/71 (88) 93 Room Air 05/16/17 20:01 68 17 119/70 95 Room Air 05/16/17 19:03 67 16 116/62 96 Room Air 05/16/17 17:30 66 19 111/62 99 Nasal Cannula 2.0 05/16/17 16:38 62 05/16/17 16:18 36.3 60 20 107/69 90 Room Air 05/16/17 16:08 90 Room Air Physical Exam Comments: General Appearance: WD/WN, no apparent distress Head: normocephalic, atraumatic Eyes: normal inspection, sclerae normal Respiratory/Chest: normal breath sounds, no respiratory distress Cardiovascular: regular rate, rhythm, no edema, normal peripheral pulses Abdomen/GI: non tender, soft Extremities/Musculoskelatal: no calf tenderness, no pedal edema Neurologic/Psych: alert, normal mood/affect, oriented x 3, + pertinent finding (speech is much improved) Skin: normal color, warm/dry, + pertinent finding (improving skin turgor) Laboratory Results Last 24 Hours Test 05/16/17 15:19 05/16/17 16:25 05/16/17 17:06 05/17/17 06:19 White Blood Count 9.37 K/uL Red Blood Count 5.29 M/uL Hemoglobin 16.4 g/dL Hematocrit 48.3 % Mean Corpuscular Volume 91.3 fL Mean Corpuscular Hemoglobin 31.0 pg Mean Corpuscular Hemoglobin Concent 34.0 g/dl Platelet Count 169 K/uL Mean Platelet Volume 10.5 fL Neutrophils (%) (Auto) 72.6 % Lymphocytes (%) (Auto) 12.9 % Monocytes (%) (Auto) 9.0 % Eosinophils (%) (Auto) 4.7 % Basophils (%) (Auto) 0.5 % Neutrophils # (Auto) 6.80 K/uL Lymphocytes # (Auto) 1.21 K/uL Monocytes # (Auto) 0.84 K/uL Eosinophils # (Auto) 0.44 K/uL Basophils # (Auto) 0.05 K/uL RDW Standard Deviation 43.5 fL RDW Coefficient of Variation 13.1 % Immature Granulocyte % (Auto) 0.3 % Immature Granulocyte # (Auto) 0.03 K/uL Prothrombin Time 11.1 SECONDS Prothromb Time International Ratio 1.1 Activated Partial Thromboplast Time 29.2 SECONDS Partial Thromboplastin Ratio 1.1 Sodium Level 131 mmol/L 135 mmol/L Potassium Level 3.7 mmol/L 3.8 mmol/L Chloride Level 94 mmol/L 102 mmol/L Carbon Dioxide Level 30 mmol/L 28 mmol/L Anion Gap 7.0 mmol/L 5.0 mmol/L Blood Urea Nitrogen 13 mg/dl 10 mg/dl Creatinine 0.98 mg/dl 0.78 mg/dl Est Creatinine Clear Calc Drug Dose 47.7 ml/min 20.7 ml/min Estimated GFR () 80.0 94.1 Estimated GFR (Non- 69.0 81.2 BUN/Creatinine Ratio 13.3 12.5 Random Glucose 150 mg/dl 86 mg/dl Calcium Level 8.8 mg/dl 8.4 mg/dl Magnesium Level 1.9 mg/dl Total Bilirubin 0.8 mg/dl Aspartate Amino Transf (AST/SGOT) 20 U/L Alanine Aminotransferase (ALT/SGPT) 19 U/L Alkaline Phosphatase 73 U/L Troponin I 0.020 ng/ml Total Protein 7.4 gm/dl Albumin 3.3 gm/dl Globulin 4.1 gm/dl Albumin/Globulin Ratio 0.8 Thyroid Stimulating Hormone (TSH) 1.560 uIu/ml Digoxin Level 1.5 ng/ml Urine Color YELLOW Urine Appearance CLEAR Urine pH 6.5 Urine Specific [place] 1.011 Urine Protein NEG Urine Glucose (UA) NEG Urine Ketones NEG Urine Occult Blood NEG Urine Nitrite POS Urine Bilirubin NEG Urine Urobilinogen NEG Urine Leukocyte Esterase LARGE Urine WBC (Auto) >30 /hpf Urine RBC (Auto) 0-4 /hpf Urine Hyaline Casts (Auto) 1-5 /lpf Urine Epithelial Cells (Auto) 0-5 /lpf Urine Bacteria (Auto) 2+ Influenza Type A Antigen Neg for Influ A Influenza Type B Antigen Neg for Influ B Lactic Acid Level 1.5 mmol/L Assessment and Plan 86 y/o M who was admitted on 05/16 for dehydration/UTI UTI/dehydration: likely the cause for speech issues Mostly resolved, can hold on speech therapy CT head neg for acute UA noted Started on ceftriaxone in the ED, will continue Urine and blood cx pending, prior sensitivity to rocephin WBC WNL Flu neg Dig level WNL Dehydration: in the setting of poor PO intake with UTI Monitor on IVF COPD: no exacerbation, continue home meds Paraplegia with chronic cronin and ileostomy: at baseline Has cronin changed with urology due to h/o traumatic cronin insertion CAD/pacer/defibrillator/stent: continue home meds Other: Full code, although specifies that he does not want prolonged mechanical life support or feeding tubes. Family is present and agrees SCDs for DVT proph as pt is immobile at baseline Reg diet with IVF
--- NOTE | 2017-05-17 11:50 | Clinical Documentation Query ---
CLINICAL DOCUMENTATION QUERY Dr. CHAN, In your clinical opinion is this patient being managed for: (x ) UTI due to/possibly due to chronic cronin catheter ( ) Not Agree ( ) Other explanation of clinical findings (Please Explain) ( ) Unable to determine (Please Define) ( ) Need to Discuss The medical record reflects the following clinical findings, treatment, and risk factors. Clinical Indicators: 86 yo male presenting with a UTI. Pt is paraplegic with a chronic cronin catheter. Treatment: IV fluids, IV rocephin, pending UA cx, Risk Factors: chronic cronin catheter Please clarify and document your clinical opinion in the progress notes and discharge summary. Terms such as "probable", "suspected", "likely", "questionable", "possible", or "still to be ruled out" are acceptable. IF IN AGREEMENT, YOU MUST DOCUMENT ABOVE DIAGNOSTIC STATEMENT IN DAILY PROGRESS NOTES AND DISCHARGE SUMMARY. This document is not part of the patient's record. Thank You, Francine Mccallum, FELICITAS [phone]
[2017-05-17 15:14] VITALS: BP 111/61; PULSE 64; TEMP 36.7; O2SAT 91
[2017-05-17] MEDS: DIGOXIN 0.125 MG TAB PO SCH (15:45)
[2017-05-17] MEDS ORDERED: CEFTRIAXONE SOD INJ 1 GM in DEXTROSE 5% ADD-VANTAGE 50ML 50 ML IV SCH (18:15)
[2017-05-17 23:33] VITALS: BP 112/64; PULSE 66; TEMP 36.6; O2SAT 90
[2017-05-18] MEDS: NSS + 20MEQ KCL 1000ML 1,000 ML IV SCH ×2 (03:00→13:00)
[2017-05-18 07:29] VITALS: BP 143/82; PULSE 74; TEMP 36.4; O2SAT 90
[2017-05-18] MEDS: OXYBUTYNIN CHLORIDE 5 MG TAB PO SCH ×2 (07:43→12:31)
[2017-05-18] MEDS: CHOLECALCIFEROL 1000 INTER.UNIT TAB PO SCH (07:43)
[2017-05-18] MEDS: ESCITALOPRAM OXALATE 10 MG TAB PO SCH (07:43)
[2017-05-18] MEDS: ATORVASTATIN 40 MG TAB PO SCH (07:43)
[2017-05-18] MEDS: LACTOBACILLUS ACIDOPHILUS (FLORANEX) TAB PO SCH (07:43)
[2017-05-18] MEDS: CEROVITE ADV FORMULA TAB PO SCH (07:43)
[2017-05-18] MEDS: ISOSORBIDE MONONITRATE 30 MG TABCR PO SCH (07:44)
[2017-05-18] MEDS: CARVEDILOL 3.125 MG TAB PO SCH (07:44)
[2017-05-18] MEDS: MAGNESIUM OXIDE 400 MG TAB PO SCH (07:44)
[2017-05-18] MEDS: PANTOprazole SOD 40 MG TAB PO SCH (07:44)
[2017-05-18] MEDS: BUDESONIDE/FORMOTEROL FUMARATE 160/4.5 60 PUFFS/INHALER INH SCH (07:45)
[2017-05-18] MEDS: FLUTICASONE PROPIONATE NA SPR 16 GM BTL NAE SCH (07:45)
[2017-05-18] MEDS ORDERED: KFL250 PO (12:31)
--- NOTE | 2017-05-18 12:40 | Discharge Instructions ---
Discharge Instructions Date of Service May 18, 2017. Admission Reason for Admission: Uti (Urinary Tract Infection) Discharge Discharge Diagnosis / Problem: UTI, dehydration Discharge Goals Goal(s): Decrease discomfort, Improve function, Increase independence Activity Recommendations Activity Limitations: resume your previous activity . Instructions / Follow-Up Instructions / Follow-Up You should follow up with urology on 06/07 as scheduled prior. They will need to check a urinalysis and culture at that time to determine if there is a bacterial colonization of his catheter or if this has cleared, as we discussed via phone You should see Dr. Yang next week Current Hospital Diet Patient's current hospital diet: Regular Diet Discharge Diet Recommended Diet: AHA Diet (Heart Healthy) Pending Studies Studies pending at discharge: yes List of pending studies: Final blood cultures Medical Emergencies . Who to Call and When: Medical Emergencies: If at any time you feel your situation is an emergency, please call 911 immediately. . Non-Emergent Contact Non-Emergency issues call your: Primary Care Provider, Urologist . . "Provider Documentation" section prepared by Gloria Davidson. . VTE Core Measure Inpt VTE Proph given/why not?: SCD's
--- NOTE | 2017-05-18 12:41 | Discharge Summary ---
Discharge Summary Date of Service May 18, 2017. Discharge Summary Admission Date: May 16, 2017 at 18:21 Discharge Date: May 18, 2017 Discharge Disposition: Home with services Principal Diagnosis: Dehydration, possible UTI Problems/Secondary Diagnoses: Paraplegia Chronic cronin Ileostomy Pacer/defibrillator COPD HTN CAD s/p stents Hyperlipidemia GERD Depression Immunizations: Have You Had Influenza Vaccine: No History of Tetanus Vaccine?: Unknown Tetanus Immunization Date: Jan 22, 2009 History of Pneumococcal: Yes Pneumococcal Date: Mar 27, 2011 History of Hepatitis B Vaccine: Unknown Medication Reconciliation New Medications: Cephalexin Monohydrate (Cephalexin) 250 Mg Cap 500 MG PO BID for 10 Days, #20 CAP Continued Medications: Albuterol Sulf (Proventil 0.083% 2.5MG/3ML) 2.5 Mg/3 Ml Nebu 2.5 MG INH Q6H PRN for Shortness of Breath, EA Albuterol Sulfate (Proair Respiclick) 108 Mcg/Act Aer 1-2 PUFFS INH Q4 PRN for Shortness of Breath Atorvastatin (Lipitor) 40 Mg Tab 40 MG PO DAILY, TAB Budesonide/Formoterol Fumarate (Symbicort 160/4.5 Inhaler ) Aero 1 PUFFS INH BID, INHALER Carvedilol (Coreg) 3.125 Mg Tab 3.125 MG PO BIDM, TAB TAKE WITH MORNING AND EVENING MEALS Cholecalciferol (Vitamin D 1000 Unit) 1,000 Unit Cap 1000 INTER.UNIT PO DAILY, CAP Cranberry-Cholecalciferol (Super Cranberry/Vitamin D) 1 Cap Cap 1 TAB PO DAILY Digoxin (Digox) 125 Mcg Tab 1 TAB PO DAILY Escitalopram (Lexapro) 10 Mg Tab 10 MG PO DAILY, TAB Fluticasone Propionate (Nasal) (Flonase Allergy Relief) 50 Mcg/Act Spr 1 SPRAY BARRY DAILY Guaifenesin Ext Rel (Mucinex Ext Rel) 600 Mg Tabcr 600 MG PO Q12 PRN for congestion, TAB Hydrocortisone (Hydrocortisone 2.5%) 30 Gm Cr 1 APPLN TD DIRECTED PRN for IRRITATION TO BACK AND NECK Isosorbide Mononitrate Ext Rel (Imdur Ext Rel) 30 Mg Ertab 30 MG PO QAM, TAB Lactobacillus (Lactinex) Chw 1 TABLET PO BID, CHW Magnesium Oxide (Mag-Ox) 400 Mg Tab 400 MG PO BID, 0 Refills Melatonin (Melatonin) 3 Mg Tab 3 MG PO HS Metaxalone (Skelaxin) 800 Mg Tab 800 MG PO Q8 PRN for PRN, 0 Refills Multiple Vitamin (Multivitamin) 1 Tab Tab 1 TAB PO DAILY, TAB Multivitamins/Minerals (Cerovite Advanced Formula) 1 Tab Tab 1 TAB PO QAM Mupirocin 2% (Bactroban 2%) 30 Gm Cr 1 APPLN EXT UD, TUBE Omeprazole (Prilosec) 40 Mg Cap 40 MG PO DAILY, CAP Oxybutynin Chloride (Oxybutynin Chloride) 5 Mg Tab 1 TAB PO QID Saline (Saline Nasal [place]) 0.65 % Spr 1 SPRAY BARRY DAILY PRN for DRYNESS Discharge Exam Pt is feeling much improved overall. He has been eating well. No further speech issues. Pt denies fever, SOB, chest pain, abd pain, n/v/c/d, LE pain or swelling. Physical Exam: General Appearance: WD/WN, no apparent distress Eyes: normal inspection, sclerae normal Respiratory/Chest: normal breath sounds, no respiratory distress Cardiovascular: regular rate, rhythm, no edema Abdomen / GI: non tender, soft Extremities: no calf tenderness, no pedal edema Neurologic/Psychiatric: alert, normal mood/affect, oriented x 3 Skin: normal color, warm/dry Hospital Course 86 y/o M who was admitted on 05/16 for dehydration/UTI UTI/dehydration: likely the cause for speech issues and pt is at his usual s/p IVF and rocephin CT head neg for acute WBC WNL Flu neg Dig level WNL UA noted for + nitrites and + leuk est Started on ceftriaxone in the ED and this has been continued Blood cx neg Interestingly, pt's sensi returned today for pseudomonas with MDR to levaquin , cipro, and imipenem. I did discuss this with pharmacy as ceftriaxone should not have effect on pseudomonas and pt was being d/c'd on keflex as he feels much improved. It is possible that pt's sx were caused by dehydration only and that his UA and culture are the result of a colonization of his chronic cronin. Pt feels completely at his usual. It is unclear if he had a true UTI on admission, but if so, it is likely related to chronic cronin status. I spoke with his via phone today and she states that he has his next urology f/u on 06/07 for cronin change. Pt should have a UA with cx done at this time to determine if there is colonization or if this has cleared. If pt has return of sx or new sx, he should return to the ED. I explained the plan with her in detail and she states understanding and agreement. Dehydration: in the setting of poor PO intake with UTI Resolved with IVF COPD: no exacerbation, continue home meds Paraplegia with chronic cronin and ileostomy: at baseline Has cronin changed with urology due to h/o traumatic cronin insertion CAD/pacer/defibrillator/stent: continue home meds Total Time Spent: Greater than 30 minutes This includes examination of the patient, discharge planning, medication reconciliation, and communication with other providers. Discharge Instructions Please refer to the electronic Patient Visit Report (Discharge Instructions) for additional information. Follow-Up You should follow up with urology as you have scheduled prior You should see Dr. Yang next week Additional Copies To Iam Yang M.D.; Emma Taveras MD
[2017-05-18 12:50] VITALS: BP 143/82; PULSE 74; TEMP 36.4; O2SAT 90
[2017-05-18 13:33] VITALS: BP 173/82; PULSE 84; O2SAT 97
[2017-05-18] MEDS: DIGOXIN 0.125 MG TAB PO SCH (16:48)
[2017-05-18] MEDS ORDERED: CEPHALEXIN MONOHYDRATE 500 MG CAP PO SCH (17:00)
--- NOTE | 2017-06-27 04:50 | EDITING REQUIRED CODING QUERY ---
CODING QUERY To promote full compliance with coding requirements relating to patient care, provider participation is requested in all cases of remote encoding operations supervisor uncertainty. Please assist us with the question(s) below: Coding Question(s): Paraplegic patient with chronic indwelling urinary catheter, ileostomy with UTI. Please document the etiology of the UTI if known or suspected. Thanks for your help! Manohar Diaz [facility] Physician's Response(s): UTI related to chronic indwelling catheter Principal Diagnosis: "_that condition established after study, to be chiefly responsible for occasioning the admission of the patient to the hospital for care." Co-Existing Principal Diagnosis: "_when two or more diagnoses equally meet the criteria for principal diagnosis as determined by the circumstances of admission, diagnostic work up, and/or therapy provided, and the Alphabetic Index, Tabular List, or another coding guideline does not provide sequencing direction, any one of the diagnoses may be sequenced first." "When the physician has documented what appears to be a current diagnosis in the body of the record, but has not included the diagnosis in the final diagnostic statement, the physician should be asked whether the diagnosis should be added." (Source Coding [facility] 2 QTR90. p3-4)
== END 2017-05-18 18:39 | disposition home health service (06) | DRG 699 ==
LOC: EDBD 15:47 → C.EDB 15:48 → C.MS4W 18:21 → EDBEDREQ 18:26 → ENRESERV 19:31
PROVIDERS: ADMIT Family Medicine; ATTEND Family Medicine
DX: T83.511A Infection and inflammatory reaction due to indwelling urethral catheter, initial encounter (principal); G82.20 Paraplegia, unspecified; N39.0 Urinary tract infection, site not specified; I10 Essential (primary) hypertension; L89.90 Pressure ulcer of unspecified site, unspecified stage; J20.9 Acute bronchitis, unspecified; Z93.2 Ileostomy status; J44.9 Chronic obstructive pulmonary disease, unspecified; Z95.5 Presence of coronary angioplasty implant and graft; E78.5 Hyperlipidemia, unspecified; Z87.891 Personal history of nicotine dependence; Z88.2 Allergy status to sulfonamides; Z95.810 Presence of automatic (implantable) cardiac defibrillator; E86.0 Dehydration; I25.10 Atherosclerotic heart disease of native coronary artery without angina pectoris; F32.9 Major depressive disorder, single episode, unspecified; B96.5 Pseudomonas (aeruginosa) (mallei) (pseudomallei) as the cause of diseases classified elsewhere; Y84.6 Urinary catheterization as the cause of abnormal reaction of the patient, or of later complication, without mention of misadventure at the time of the procedure; Y92.019 Unspecified place in single-family (private) house as the place of occurrence of the external cause

== ENCOUNTER → 2017-05-31 | Outpatient (CLI) | payer OTHER ==
[~2017-05-31] MED LIST changes: +KFL250 PO
== END | disposition home or self-care (01) ==
LOC: C.PATHSPEC 17:03
PROVIDERS: ATTEND Physician Assistant
DX: L82.0 Inflamed seborrheic keratosis (principal)

== ENCOUNTER 2017-07-08 14:51 | Observation (INO) | payer OTHER ==
[~2017-07-08] VITALS: Ht 170.2 cm; Wt 60.5 kg
--- NOTE | 2017-07-08 15:08 | EMERGENCY ROOM VISIT NOTE ---
History Report prepared by Miller: Dian Clark Under the Supervision of: Dr. Raul Lizama M.D. First contact with patient: 14:59 Stated Complaint: URINARY SYMP History of Present Illness The patient is a 87 year old male who presents to the Emergency Room with complaints of confusion that started a couple of days ago. The patient was sent over by his . 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 The patient denies any abdominal pain, shortness of breath, back pain, or rashes. He notes he has vomited a couple of times over the past couple of days. He reports he does not use oxygen regularly. Source of History: patient Onset: a couple of days ago Position: other (global) Timing: other (persistent) Associated Symptoms: + vomiting, No SOB, No abdominal pain, No back pain Review of Systems See HPI for pertinent positives & negatives. A total of 10 systems reviewed and were otherwise negative. Past Medical & Surgical Medical Problems: (1) Back Surgery (2) Benign hypertension (3) Colostomy (4) COPD (5) COPD exacerbation (6) coronary artery disease with stent (7) Family history of cancer (8) Hyperlipidemia (9) Ileostomy (10) Paraplegia Family History Cancer Heart disease Stroke Social History Smoking Status: Never Smoker Alcohol Use: none Drug Use: none Marital Status: Housing Status: lives with family Occupation Status: retired Current/Historical Medications Scheduled Atorvastatin (Lipitor), 40 MG PO DAILY Budesonide/Formoterol Fumarate (Symbicort 160/4.5 Inhaler ), 1 PUFFS INH BID Carvedilol (Coreg), 3.125 MG PO BIDM Cephalexin Monohydrate (Cephalexin), 500 MG PO BID Cholecalciferol (Vitamin D 1000 Unit), 1,000 INTER.UNIT PO DAILY Cranberry-Vitamin C-Vitamin E (Cranberry Plus Vitamin C 4200-20-3 mg-Unit), 1 CAP PO DAILY Digoxin (Digox), 1 TAB PO DAILY Escitalopram (Lexapro), 10 MG PO DAILY Fluticasone Propionate (Nasal) (Flonase Allergy Relief), 1 SPRAY BARRY DAILY Isosorbide Mononitrate Ext Rel (Imdur Ext Rel), 30 MG PO QAM Lactobacillus (Lactinex), 1 TABLET PO BID Magnesium Oxide (Mag-Ox), 400 MG PO BID Menthol-Zinc Oxide (Moisture Barrier 0.44-20.6 %), 1 APPLN TP BID Multiple Vitamin (Multivitamin), 1 TAB PO DAILY Multivitamins/Minerals (Cerovite Advanced Formula), 1 TAB PO QAM Omeprazole (Prilosec), 40 MG PO DAILY Oxybutynin Chloride (Oxybutynin Chloride), 1 TAB PO QID Scheduled PRN Acetaminophen (Tylenol), 1-2 TAB PO Q6 PRN for Pain or Fever Albuterol Sulf (Proventil 0.083% 2.5MG/3ML), 2.5 MG INH Q6H PRN for Shortness of Breath Albuterol Sulfate (Proair Respiclick), 1-2 PUFFS INH Q4 PRN for Shortness of Breath Guaifenesin La (Guaifenesin Er), 600 MG PO Q12H PRN for CONGESTION Metaxalone (Skelaxin), 800 MG PO Q8 PRN for PRN Mupirocin 2% (Bactroban 2%), 1 APPLN EXT TID PRN for Itching Saline (Saline Nasal [place]), 1 SPRAY BARRY DAILY PRN for DRYNESS Allergies Coded Allergies: Food (Verified Allergy, Severe, ANAPHYLAXIS WITH RADISHES/ DIFFICULTY BREATHING HORSERADISH, 07/08/17) NSAIDs (Verified Allergy, Severe, internal bleeding, 07/08/17) Banana (Verified Allergy, Mild, 07/08/17) Sulfa Antibiotics (Verified Allergy, Unknown, Unknown, 07/08/17) Physical Exam Vital Signs Date Time Temp Pulse Resp B/P (MAP) Pulse Ox O2 Delivery O2 Flow Rate FiO2 07/08/17 19:54 60 16 125/74 98 Nasal Cannula 2.0 07/08/17 18:27 62 18 102/62 98 Nasal Cannula 2.0 07/08/17 18:16 61 07/08/17 16:44 68 20 108/72 96 Nasal Cannula 2.0 07/08/17 15:13 64 07/08/17 15:00 95 Nasal Cannula 2.0 07/08/17 14:55 36.9 68 20 145/78 88 Room Air Physical Exam GENERAL: Patient is tired appearing and in no acute distress. EYES: No scleral icterus, unremarkable pupils. ENT: Mucous membranes moist, no nasal congestion. NECK: No masses appreciated, no meningismus, trachea is midline. RESPIRATORY: No dyspnea. Clear to auscultation and equal bilaterally. No wheeze , no rhonchi. CARDIOVASCULAR: Regular rate and rhythm. No murmurs, rubs, gallops appreciated. GASTROINTESTINAL: Abdomen soft, nontender, no peritonitis. Bowel sounds positive. No masses appreciated. BACK: No midline tenderness, no CVA tenderness EXTREMITIES: Normal motion all extremities, no cyanosis, no edema. NEUROLOGIC: Alert and oriented, paralyzed in bilateral lower legs, able to move upper extremities, no focal weakness, cranial nerves grossly intact. SKIN: No rash, no jaundice, no diaphoresis. Medical Decision & Procedures ER Provider Diagnostic Interpretation: Radiology results and stated below per my review and radiologist interpretation: CHEST ONE VIEW PORTABLE CLINICAL HISTORY: 87 years-old Male presenting with Confusion. TECHNIQUE: Portable upright AP view of the chest was obtained. COMPARISON: 05/16/2017. FINDINGS: Left subclavian implanted cardiac defibrillator with leads to the right atrium and right ventricular apex. Atherosclerosis of aortic arch. Cardiac silhouette normal in size. Hyperinflation of the lungs. No focal opacity. No large effusion or pneumothorax. Left retrocardiac opacity may indicate the presence of a hiatal hernia. Extensive posterior thoracolumbar fusion hardware. IMPRESSION: 1. Lung hyperinflation could indicate underlying emphysema. No superimposed infiltrate to suggest acute cardiopulmonary disease. 2. Hiatal hernia. Electronically signed by: Iam Phillips M.D. 07/08/2017 3:25 PM Dictated Date/Time: 07/08/2017 3:24 PM Laboratory Results 07/08/17 15:30 Red Blood Count 5.20, Mean Corpuscular Volume 88.1, Mean Corpuscular Hemoglobin 30.8, Mean Corpuscular Hemoglobin Concent 34.9, Mean Platelet Volume 9.8, Neutrophils (%) (Auto) 69.9, Lymphocytes (%) (Auto) 14.0, Monocytes (%) (Auto) 8.7, Eosinophils (%) (Auto) 6.4, Basophils (%) (Auto) 0.5, Neutrophils # (Auto) 6.46, Lymphocytes # (Auto) 1.30, Monocytes # (Auto) 0.81, Eosinophils # (Auto) 0.59, Basophils # (Auto) 0.05 07/08/17 15:30 Test 07/08/17 15:30 07/08/17 16:40 07/08/17 20:07 07/08/17 20:08 White Blood Count 9.26 K/uL (4.8-10.8) Red Blood Count 5.20 M/uL (4.7-6.1) Hemoglobin 16.0 g/dL (14.0-18.0) Hematocrit 45.8 % (42-52) Mean Corpuscular Volume 88.1 fL (80-100) Mean Corpuscular Hemoglobin 30.8 pg (25-34) Mean Corpuscular Hemoglobin Concent 34.9 g/dl (32-36) Platelet Count 170 K/uL (130-400) Mean Platelet Volume 9.8 fL (7.4-10.4) Neutrophils (%) (Auto) 69.9 % Lymphocytes (%) (Auto) 14.0 % Monocytes (%) (Auto) 8.7 % Eosinophils (%) (Auto) 6.4 % Basophils (%) (Auto) 0.5 % Neutrophils # (Auto) 6.46 K/uL (1.4-6.5) Lymphocytes # (Auto) 1.30 K/uL (1.2-3.4) Monocytes # (Auto) 0.81 K/uL (0.11-0.59) Eosinophils # (Auto) 0.59 K/uL (0-0.5) Basophils # (Auto) 0.05 K/uL (0-0.2) RDW Standard Deviation 42.1 fL (36.4-46.3) RDW Coefficient of Variation 13.2 % (11.5-14.5) Immature Granulocyte % (Auto) 0.5 % Immature Granulocyte # (Auto) 0.05 K/uL (0.00-0.02) Anion Gap 7.0 mmol/L (3-11) Est Creatinine Clear Calc Drug Dose 56.9 ml/min Estimated GFR () 93.9 Estimated GFR (Non- 81.0 BUN/Creatinine Ratio 12.6 (10-20) Calcium Level 8.9 mg/dl (8.5-10.1) Total Bilirubin 0.6 mg/dl (0.2-1) Direct Bilirubin 0.2 mg/dl (0-0.2) Aspartate Amino Transf (AST/SGOT) 17 U/L (15-37) Alanine Aminotransferase (ALT/SGPT) 22 U/L (12-78) Alkaline Phosphatase 103 U/L (45-117) Total Protein 7.5 gm/dl (6.4-8.2) Albumin 3.2 gm/dl (3.4-5.0) Urine Color YELLOW Urine Appearance TURBID (CLEAR) Urine pH 8.5 (4.5-7.5) Urine Specific [place] 1.016 (1.000-1.030) Urine Protein 1+ (NEG) Urine Glucose (UA) NEG (NEG) Urine Ketones NEG (NEG) Urine Occult Blood 1+ (NEG) Urine Nitrite POS (NEG) Urine Bilirubin NEG (NEG) Urine Urobilinogen NEG (NEG) Urine Leukocyte Esterase LARGE (NEG) Urine WBC (Auto) >30 /hpf (0-5) Urine RBC (Auto) 0-4 /hpf (0-4) Urine Hyaline Casts (Auto) 5-10 /lpf (0-5) Urine Epithelial Cells (Auto) >30 /lpf (0-5) Urine Bacteria (Auto) 4+ (NEG) Urine Crystals TRIPLE PHOSPHATE Urine Yeast (Auto) (NONE PRSENT) Laboratory results as reviewed by me. Medications Administered Medications (Trade) Dose Ordered Sig/Eloisa Route Start Time Stop Time Status Last Admin Dose Admin Ceftriaxone Sodium (Rocephin Inj) 1 gm NOW STAT IV 07/08/17 17:34 07/08/17 17:35 DC 07/08/17 18:02 1 GM Vancomycin HCl 1250 mg/Sodium Chloride 275 ml @ 125 mls/hr ONE STAT IV 07/08/17 18:31 07/08/17 20:42 07/08/17 18:46 125 MLS/HR ECG Per My Interpretation Indication: weakness Rate (beats per minute): 69 Rhythm: sinus rhythm Findings: 1st degree AV block, no acute ischemic change, no ectopy, other (QTC 398) Comparison ECG Date: 12/2016 Change: Similar morphology, no longer atrial paste. ED Course 1459: The patient was evaluated in room B9. A complete history and physical exam was performed. 1543: I reevaluated the patient and he is sleeping and in no distress. 1725: I reevaluated the patient and he is sleeping. He is oxygenating well on nasal canula oxygen. I discussed with whether she feels comfortable with him at home and she states he is far too confused and thinks he should be brought into the hospital. 174: I asked staff to page Dr. Fabian, [place]. 1814: We are going to wait for Dr. Lamas to come in at 1900. 1827: I checked on the patient and he is sleeping and still requiring nasal canula tube. 1909: Dr. Lamas will evaluate patient for further management. 1949: Further discussed case with Hospitalist. He will remain in hospital. Medical Decision Differential: Sepsis, Infectious (UTI/Pneumonia/Meningitis/etc), Metabolic/ Electrolyte Abnormality, Cardiac, Dehydration, Anemia, Hepatic, Endocrine, Toxicologic, Neurologic, amongst other pathologies entertained. 87 yr old male arrives for evaluation of confusion by EMS. Eventually family arrived stating he is not acting himself. No evidence of meningitis. He is mildly hypoxic on RA which improved with NC O2. No infiltrate on CXR and no cough thus I suspect this is combination chronic lung issues and underlying urine infection causing confusion. UA clearly infected from catheter. Labs look OK. He is not overtly septic by examination and looks well and states he is in no distress, however family makes clear they do no feel comfortable with him at home. Given Jensen/Vanco as high risk and with indwelling cronin. Discussed with hospitalist who will evaluate further. Medication Reconcilliation Current Medication List: was personally reviewed by me Blood Pressure Screening Patient's blood pressure: Normal blood pressure Consults Time Called: 1829 Consulting Physician: Dr. Lamas, Hospitalist Returned Call: 1909 Dr. Lamas will evaluate the patient for further management. Impression Primary Impression: Urinary tract infection Additional Impressions: Confusion Hypoxia Scribe Attestation The scribe's documentation has been prepared under my direction and personally reviewed by me in its entirety. I confirm that the note above accurately reflects all work, treatment, procedures, and medical decision making performed by me. Departure Information Dispostion Being Evaluated By Hospitalist Referrals No Doctor, Assigned (PCP) Problem Qualifiers
--- NOTE | 2017-07-08 15:26 | DIAGNOSTIC IMAGING REPORT ---
CHEST ONE VIEW PORTABLE CLINICAL HISTORY: 87 years-old Male presenting with Confusion. TECHNIQUE: Portable upright AP view of the chest was obtained. COMPARISON: 05/16/2017. FINDINGS: Left subclavian implanted cardiac defibrillator with leads to the right atrium and right ventricular apex. Atherosclerosis of aortic arch. Cardiac silhouette normal in size. Hyperinflation of the lungs. No focal opacity. No large effusion or pneumothorax. Left retrocardiac opacity may indicate the presence of a hiatal hernia. Extensive posterior thoracolumbar fusion hardware. IMPRESSION: 1. Lung hyperinflation could indicate underlying emphysema. No superimposed infiltrate to suggest acute cardiopulmonary disease. 2. Hiatal hernia. Electronically signed by: Iam Phillips M.D. 07/08/2017 3:25 PM Dictated Date/Time: 07/08/2017 3:24 PM
[2017-07-08] MEDS ORDERED: GUAI400T29 PO (15:39)
[2017-07-08] MEDS ORDERED: CRANCAP4 PO (15:39)
[2017-07-08] MEDS ORDERED: [UNRECOGNIZED DRUG - CODE] TP (15:41)
[2017-07-08] MEDS ORDERED: GUAI1TAB75 PO (15:41)
[2017-07-08 15:42] LABS: BASO % 0.5 %; BASO ABS # 0.05 K/uL (0-0.2); EOS % 6.4 %; EOS ABS # 0.59 K/uL (0-0.5); HEMATOCRIT 45.8 % (42-52); IG# 0.05 K/uL (0.00-0.02); MEAN CELL VOLUME 88.1 fL (80-100); MEAN CORPUSCULAR HEMOGLOBIN 30.8 pg (25-34); MEAN CORPUSCULAR HGB CONC 34.9 g/dl (32-36); MEAN PLATELET VOLUME 9.8 fL (7.4-10.4); MONO % 8.7 %; MONO ABS # 0.81 K/uL (0.11-0.59); NEUT % 69.9 %; NEUT ABS # 6.46 K/uL (1.4-6.5); PLATELET COUNT 170 K/uL (130-400); RED CELL DISTRIBUTION WIDTH CV 13.2 % (11.5-14.5); RED CELL DISTRIBUTION WIDTH SD 42.1 fL (36.4-46.3); WHITE BLOOD COUNT 9.26 K/uL (4.8-10.8)
[2017-07-08] MEDS ORDERED: ACET-1256 PO (15:42)
[2017-07-08 16:00] LABS: ALBUMIN 3.2 gm/dl (3.4-5.0); CALCIUM 8.9 mg/dl (8.5-10.1); CREATININE 0.77 mg/dl (0.60-1.40); POTASSIUM 4.1 mmol/L (3.5-5.1)
[2017-07-08 16:04] LABS: TOTAL PROTEIN 7.5 gm/dl (6.4-8.2)
[2017-07-08] MEDS ORDERED: CEFTRIAXONE SOD INJ 1 GM ADDVIAL IV STA (17:34)
[2017-07-08] MEDS ORDERED: VANCOMYCIN IV STA (17:34)
[2017-07-08] MEDS ORDERED: SODIUM CHLORIDE 0.9% IV STA (17:34)
[2017-07-08] MEDS ORDERED: VANCOMYCIN CONSULT ACTIVE PRN ×2 (17:45→20:15)
[2017-07-08] MEDS ORDERED: VANCOMYCIN IV 1,250 MG in SODIUM CHLORIDE 0.9% 250ML 250 ML IV STA (18:31)
[2017-07-08] MEDS ORDERED: ACETAMINOPHEN 325 MG TAB PO PRN (20:15)
[2017-07-08] MEDS ORDERED: ZOLPIDEM TARTRATE 5 MG TAB PO PRN ×2 (20:15)
[2017-07-08] MEDS ORDERED: POLYETHYLENE (MIRALAX) 17 GM PACK PO PRN (20:15)
[2017-07-08] MEDS ORDERED: ONDANSETRON INJ 2 MG/ML 2 ML VIAL IV PRN (20:15)
[2017-07-08] MEDS ORDERED: MAGNESIUM HYDROXIDE SUSP 30 ML UDC PO PRN (20:15)
[2017-07-08] MEDS ORDERED: ALUMINUM/MAGNESIUM/SIMETH (MAALOX MAX) 30 ML UDC PO PRN (20:15)
[2017-07-08] MEDS ORDERED: NITROGLYCERIN 0.4 MG SL PER TAB CHARGE SL PRN (20:15)
[2017-07-08 20:40] VITALS: BP_SYST 125; BP_SYST 149; BP_DIAS 73; BP_DIAS 74; PULSE 60; PULSE 64; TEMP 36.6; TEMP 36.9; O2SAT 98; Ht 170.2 cm; Wt 60.5 kg
[2017-07-08] MEDS ORDERED: IV FLUIDS COMPLETED PRN (20:45)
[2017-07-08] MEDS ORDERED: VANCOMYCIN IV 1,000 MG in SODIUM CHLORIDE 0.9% 250ML 250 ML IV SCH (21:00)
[2017-07-08 21:15] VITALS: BP 149/73; PULSE 64; TEMP 36.6; O2SAT 98
--- NOTE | 2017-07-08 21:27 | History and Physical ---
History & Physical Date & Time of Service: Jul 08, 2017 at 21:05 Chief Complaint: Urinary Symp Primary Care Physician: Iam Yang M.D. History of Present Illness Source: patient, family, partner 87M with a PMHX of paraplegia s/p fall 15yrs ago, COPD (not on oxygen at home), CAD with Stent & Pacemaker placement, chronic indwelling cronin and ileostomy p/ w AMS x 24 hours. In the ER pt received Rocephin and Vanco and has regained his baseline. and sister in law are present in the room. Per family and patient yesterday evening he starting acting confused. He didn't sleep and wasn't able to answer questions appropriately and had no idea where he was. He even had verbalized that he was going to stand up despite being paraplegic for 15 years. Pt is currently on oxygen and does not use oxygen at home. Prior to yesterday evening pt was well, denies any fever, denies cough, denies any skin lesions. Past Medical/Surgical History Medical Problems: (1) Back Surgery (2) Benign hypertension (3) Bronchitis (4) C. difficile diarrhea (5) Catheter-associated urinary tract infection (6) Change in mental status (7) Chronic indwelling Cronin catheter (8) Colostomy (9) COPD (10) COPD exacerbation (11) coronary artery disease with stent (12) Dehydration (13) Fall (14) Family history of cancer (15) Fever (16) Foot contusion (17) Hyperlipidemia (18) Hypoxia (19) Ileostomy (20) Left ankle sprain (21) Lightheadedness (22) Malfunction of Cronin catheter (23) Nausea (24) Paraplegia (25) Paresthesia (26) Pressure ulcer (27) Pressure ulcer (28) Pulmonary edema (29) Sepsis (30) Sepsis (31) Transient hypotension (32) Urinary retention (33) UTI (lower urinary tract infection) (34) UTI (urinary tract infection) (35) UTI (urinary tract infection) (36) UTI (urinary tract infection) (37) Weakness Family History Cancer Heart disease Stroke Social History Smoking Status: Never Smoker Smokeless Tobacco Use: No Alcohol Use: none Drug Use: none Marital Status: Housing status: lives with family Occupational Status: retired Immunizations History of Influenza Vaccine: No History of Tetanus Vaccine?: Unknown Tetanus Immunization Date: Jan 22, 2009 History of Pneumococcal: Yes Pneumococcal Date: Mar 27, 2011 History of Hepatitis B Vaccine: Unknown Allergies Coded Allergies: Food (Verified Allergy, Severe, ANAPHYLAXIS WITH RADISHES/ DIFFICULTY BREATHING HORSERADISH, 07/08/17) NSAIDs (Verified Allergy, Severe, internal bleeding, 07/08/17) Banana (Verified Allergy, Mild, 07/08/17) Sulfa Antibiotics (Verified Allergy, Unknown, Unknown, 07/08/17) Home Medications Scheduled Atorvastatin (Lipitor), 40 MG PO DAILY Budesonide/Formoterol Fumarate (Symbicort 160/4.5 Inhaler ), 1 PUFFS INH BID Carvedilol (Coreg), 3.125 MG PO BIDM Cephalexin Monohydrate (Cephalexin), 500 MG PO BID Cholecalciferol (Vitamin D 1000 Unit), 1,000 INTER.UNIT PO DAILY Cranberry-Vitamin C-Vitamin E (Cranberry Plus Vitamin C 4200-20-3 mg-Unit), 1 CAP PO DAILY Digoxin (Digox), 1 TAB PO DAILY Escitalopram (Lexapro), 10 MG PO DAILY Fluticasone Propionate (Nasal) (Flonase Allergy Relief), 1 SPRAY BARRY DAILY Isosorbide Mononitrate Ext Rel (Imdur Ext Rel), 30 MG PO QAM Lactobacillus (Lactinex), 1 TABLET PO BID Magnesium Oxide (Mag-Ox), 400 MG PO BID Menthol-Zinc Oxide (Moisture Barrier 0.44-20.6 %), 1 APPLN TP BID Multiple Vitamin (Multivitamin), 1 TAB PO DAILY Multivitamins/Minerals (Cerovite Advanced Formula), 1 TAB PO QAM Omeprazole (Prilosec), 40 MG PO DAILY Oxybutynin Chloride (Oxybutynin Chloride), 1 TAB PO QID Scheduled PRN Acetaminophen (Tylenol), 1-2 TAB PO Q6 PRN for Pain or Fever Albuterol Sulf (Proventil 0.083% 2.5MG/3ML), 2.5 MG INH Q6H PRN for Shortness of Breath Albuterol Sulfate (Proair Respiclick), 1-2 PUFFS INH Q4 PRN for Shortness of Breath Guaifenesin La (Guaifenesin Er), 600 MG PO Q12H PRN for CONGESTION Metaxalone (Skelaxin), 800 MG PO Q8 PRN for PRN Mupirocin 2% (Bactroban 2%), 1 APPLN EXT TID PRN for Itching Saline (Saline Nasal [place]), 1 SPRAY BARRY DAILY PRN for DRYNESS Review of Systems Constitutional: No fever, No chills, No weight loss ENT: No hearing loss Respiratory: No cough, No sputum, No shortness of breath Abdomen: No pain, No nausea, No vomiting, No diarrhea, No constipation Musculoskeletal: No joint pain Genitourinary - Male: No hematuria Neurologic: + memory loss, + paralysis, + weakness, No numbness/tingling Integumentary: No rash Physical Exam Vital Signs Date Time Temp Pulse Resp B/P (MAP) Pulse Ox O2 Delivery O2 Flow Rate FiO2 07/08/17 21:00 60 16 98 07/08/17 20:40 36.9 60 16 125/74 07/08/17 19:54 60 16 125/74 98 Nasal Cannula 2.0 07/08/17 18:27 62 18 102/62 98 Nasal Cannula 2.0 07/08/17 18:16 61 07/08/17 16:44 68 20 108/72 96 Nasal Cannula 2.0 07/08/17 15:13 64 07/08/17 15:00 95 Nasal Cannula 2.0 07/08/17 14:55 36.9 68 20 145/78 88 Room Air General Appearance: WD/WN, no apparent distress, + thin Eyes: normal inspection, PERRL Neck: supple Respiratory/Chest: chest non-tender, lungs clear, normal breath sounds, no respiratory distress Cardiovascular: regular rate, rhythm, no edema, no JVD, no murmur, normal peripheral pulses Abdomen/GI: + pertinent finding (pt has an ileostomy draining soft brown stool) Genitourinary - Male: + pertinent finding (cronin draining yellow urine. ) Back: no CVA tenderness Extremities/Musculoskelatal: no calf tenderness, no pedal edema Neurologic/Psych: alert, normal mood/affect, oriented x 3, + pertinent finding (no sensation over the lower extremities, cannot move LE to command, can flex left hip approx 20 degrees. ) Skin: normal color, warm/dry Diagnostics Laboratory Results Results Past 24 Hours Test 07/08/17 15:30 07/08/17 16:40 07/08/17 20:35 Range/Units White Blood Count 9.26 4.8-10.8 K/uL Red Blood Count 5.20 4.7-6.1 M/uL Hemoglobin 16.0 14.0-18.0 g/dL Hematocrit 45.8 42-52 % Mean Corpuscular Volume 88.1 80-100 fL Mean Corpuscular Hemoglobin 30.8 25-34 pg Mean Corpuscular Hemoglobin Concent 34.9 32-36 g/dl Platelet Count 170 130-400 K/uL Mean Platelet Volume 9.8 7.4-10.4 fL Neutrophils (%) (Auto) 69.9 % Lymphocytes (%) (Auto) 14.0 % Monocytes (%) (Auto) 8.7 % Eosinophils (%) (Auto) 6.4 % Basophils (%) (Auto) 0.5 % Neutrophils # (Auto) 6.46 1.4-6.5 K/uL Lymphocytes # (Auto) 1.30 1.2-3.4 K/uL Monocytes # (Auto) 0.81 0.11-0.59 K/uL Eosinophils # (Auto) 0.59 0-0.5 K/uL Basophils # (Auto) 0.05 0-0.2 K/uL RDW Standard Deviation 42.1 36.4-46.3 fL RDW Coefficient of Variation 13.2 11.5-14.5 % Immature Granulocyte % (Auto) 0.5 % Immature Granulocyte # (Auto) 0.05 0.00-0.02 K/uL Sodium Level 132 136-145 mmol/L Potassium Level 4.1 3.5-5.1 mmol/L Chloride Level 95 98-107 mmol/L Carbon Dioxide Level 30 21-32 mmol/L Anion Gap 7.0 3-11 mmol/L Blood Urea Nitrogen 10 7-18 mg/dl Creatinine 0.77 0.60-1.40 mg/dl Est Creatinine Clear Calc Drug Dose 56.9 ml/min Estimated GFR () 93.9 Estimated GFR (Non- 81.0 BUN/Creatinine Ratio 12.6 10-20 Random Glucose 99 70-99 mg/dl Calcium Level 8.9 8.5-10.1 mg/dl Total Bilirubin 0.6 0.2-1 mg/dl Direct Bilirubin 0.2 0-0.2 mg/dl Aspartate Amino Transf (AST/SGOT) 17 15-37 U/L Alanine Aminotransferase (ALT/SGPT) 22 12-78 U/L Alkaline Phosphatase 103 45-117 U/L Troponin I 0.016 < 0.015 0-0.045 ng/ml Total Protein 7.5 6.4-8.2 gm/dl Albumin 3.2 3.4-5.0 gm/dl Urine Color YELLOW Urine Appearance TURBID CLEAR Urine pH 8.5 4.5-7.5 Urine Specific [place] 1.016 1.000-1.030 Urine Protein 1+ NEG Urine Glucose (UA) NEG NEG Urine Ketones NEG NEG Urine Occult Blood 1+ NEG Urine Nitrite POS NEG Urine Bilirubin NEG NEG Urine Urobilinogen NEG NEG Urine Leukocyte Esterase LARGE NEG Urine WBC (Auto) >30 0-5 /hpf Urine RBC (Auto) 0-4 0-4 /hpf Urine Hyaline Casts (Auto) 5-10 0-5 /lpf Urine Epithelial Cells (Auto) >30 0-5 /lpf Urine Bacteria (Auto) 4+ NEG Urine Crystals TRIPLE PHOSPHATE NONE PRSENT Urine Yeast (Auto) NONE PRSENT Lactic Acid Level 0.9 0.4-2.0 mmol/L Microbiology Results 07/08/17 Urine Culture, Received Pending Diagnostic Radiology CHEST ONE VIEW PORTABLE CLINICAL HISTORY: 87 years-old Male presenting with Confusion. TECHNIQUE: Portable upright AP view of the chest was obtained. COMPARISON: 05/16/2017. FINDINGS: Left subclavian implanted cardiac defibrillator with leads to the right atrium and right ventricular apex. Atherosclerosis of aortic arch. Cardiac silhouette normal in size. Hyperinflation of the lungs. No focal opacity. No large effusion or pneumothorax. Left retrocardiac opacity may indicate the presence of a hiatal hernia. Extensive posterior thoracolumbar fusion hardware. IMPRESSION: 1. Lung hyperinflation could indicate underlying emphysema. No superimposed infiltrate to suggest acute cardiopulmonary disease. 2. Hiatal hernia. Sinus rhythm with 1st degree A-V block Inferior infarct , age undetermined Anterolateral infarct , age undetermined Abnormal ECG When compared with ECG of 16-MAY-2017 16:08, Sinus rhythm has replaced Electronic ventricular pacemaker WHEN COMPARED TO PREVIOUS EKG THE ST SEGMENT CHANGES DO NOT APPEAR ACUTE. Impression Assessment and Plan 87M with a PMHX of paraplegia s/p fall 15yrs ago, COPD (not on oxygen at home), CAD with Stent & Defibrillator placement, chronic indwelling cronin and ileostomy p/w AMS x 24 hours. Patient got ceftriaxone and vanco in the ER and improved dramatically. The source is likely his urine. We will also be trending the Troponins. UTI with AMS Pt has a chronic indwelling cronin, it was replaced in the ER. Urine is quite dirty. c/w Vanco and Ceftriaxone and until cultures come back. Last UTI was in April, sensitive for Cephalosporins. Per med rec pt is on Keflex at home, will hold. c/w Oxybutynin Lactic acid is 0.9. CAD with stent and Defibrillator No acute changes when comparing EKGs and patient is not complaining of chest pain. c/w coreg 3.125mg BID c/w digoxin 0.125mg daily. c/w Imdur c/w Lipitor 50mg daily. will place on Observation to telemetry. Will trend trops because 0.016 on admission. COPD Pt is not on oxygen at home, try to wean before DC, may need home O2. c/w Symbicort BID Albuterol Nebs Q4 H PRN GERD c/w PPI Depression c/w Lexapro Diet: Heart Healthy. Dispo - Lives with , likely back home on DC. DVT Proph: Hep SQ TID. Full Code Attending addendum: I have physically seen this patient, have supervised the medical residents activities, and agree with the H&P unless as otherwise noted. Assessment and Plan: UTI/altered mental state/chronic indwelling Cronin catheter-- Follow urine culture and sensitivity. Empiric antibiotics with ceftriaxone IV and vancomycin IV. IV fluids. CAD/coronary artery stent history/AICD-- The patient will be admitted to telemetry for serial cardiac enzymes, serial EKG's, cardiac rhythm monitoring and a 2-D echocardiogram with Dopplers. Continue current regimen of Coreg, digoxin and IMDUR. Advanced Directives Existing Advance Directive: No Existing Living Will: Yes Existing Power of Mechanical Test Technician: No Resuscitation Status VTE Prophylaxis Will order VTE Prophylaxis: Yes Resident Involvement: Resident Care Provided Care Provided: Adult [facility] Medicine
[2017-07-08] MEDS ORDERED: ALBUTEROL 0.083% NEBU SOLN 3 ML VIAL INH PRN ×2 (21:30)
[2017-07-08 23:37] VITALS: BP 149/84; PULSE 71; TEMP 36.5; O2SAT 97
[2017-07-09] VITALS (7 sets, daily range): BP systolic 87–127; BP diastolic 47–72; PULSE 65–91; TEMP 36.5–37.2; O2SAT 91–96
--- NOTE | 2017-07-09 01:01 | Pharmacy Progress Note ---
Pharmacy Antibiotic Consult Date of Service: Jul 09, 2017. Pharmacy Dosing Scope * Pharmacy is consulted to initiate Vancomycin IV dosing therapy, order appropriate labs and adjust drug dose/frequency. Subjective * The patient is a 87 year old male admitted on Jul 08, 2017 at 20:16 for s/s of UTI. Pt has chronic indwelling urinary catheter and is paraplegic. Objective Height (Feet): 5 Height (Inches): 7.00 Weight (Kilograms): 60.700 Lab Results (24hrs): Test 07/08/17 15:30 07/08/17 16:40 07/08/17 20:35 White Blood Count 9.26 K/uL (4.8-10.8) Red Blood Count 5.20 M/uL (4.7-6.1) Hemoglobin 16.0 g/dL (14.0-18.0) Hematocrit 45.8 % (42-52) Mean Corpuscular Volume 88.1 fL (80-100) Mean Corpuscular Hemoglobin 30.8 pg (25-34) Mean Corpuscular Hemoglobin Concent 34.9 g/dl (32-36) Platelet Count 170 K/uL (130-400) Mean Platelet Volume 9.8 fL (7.4-10.4) Neutrophils (%) (Auto) 69.9 % Lymphocytes (%) (Auto) 14.0 % Monocytes (%) (Auto) 8.7 % Eosinophils (%) (Auto) 6.4 % Basophils (%) (Auto) 0.5 % Neutrophils # (Auto) 6.46 K/uL (1.4-6.5) Lymphocytes # (Auto) 1.30 K/uL (1.2-3.4) Monocytes # (Auto) 0.81 K/uL (0.11-0.59) Eosinophils # (Auto) 0.59 K/uL (0-0.5) Basophils # (Auto) 0.05 K/uL (0-0.2) RDW Standard Deviation 42.1 fL (36.4-46.3) RDW Coefficient of Variation 13.2 % (11.5-14.5) Immature Granulocyte % (Auto) 0.5 % Immature Granulocyte # (Auto) 0.05 K/uL (0.00-0.02) Sodium Level 132 mmol/L (136-145) Potassium Level 4.1 mmol/L (3.5-5.1) Chloride Level 95 mmol/L (98-107) Carbon Dioxide Level 30 mmol/L (21-32) Anion Gap 7.0 mmol/L (3-11) Blood Urea Nitrogen 10 mg/dl (7-18) Creatinine 0.77 mg/dl (0.60-1.40) Est Creatinine Clear Calc Drug Dose 56.9 ml/min Estimated GFR () 93.9 Estimated GFR (Non- 81.0 BUN/Creatinine Ratio 12.6 (10-20) Random Glucose 99 mg/dl (70-99) Calcium Level 8.9 mg/dl (8.5-10.1) Total Bilirubin 0.6 mg/dl (0.2-1) Direct Bilirubin 0.2 mg/dl (0-0.2) Aspartate Amino Transf (AST/SGOT) 17 U/L (15-37) Alanine Aminotransferase (ALT/SGPT) 22 U/L (12-78) Alkaline Phosphatase 103 U/L (45-117) Troponin I 0.016 ng/ml (0-0.045) < 0.015 ng/ml (0-0.045) Total Protein 7.5 gm/dl (6.4-8.2) Albumin 3.2 gm/dl (3.4-5.0) Urine Color YELLOW Urine Appearance TURBID (CLEAR) Urine pH 8.5 (4.5-7.5) Urine Specific [place] 1.016 (1.000-1.030) Urine Protein 1+ (NEG) Urine Glucose (UA) NEG (NEG) Urine Ketones NEG (NEG) Urine Occult Blood 1+ (NEG) Urine Nitrite POS (NEG) Urine Bilirubin NEG (NEG) Urine Urobilinogen NEG (NEG) Urine Leukocyte Esterase LARGE (NEG) Urine WBC (Auto) >30 /hpf (0-5) Urine RBC (Auto) 0-4 /hpf (0-4) Urine Hyaline Casts (Auto) 5-10 /lpf (0-5) Urine Epithelial Cells (Auto) >30 /lpf (0-5) Urine Bacteria (Auto) 4+ (NEG) Urine Crystals TRIPLE PHOSPHATE Urine Yeast (Auto) (NONE PRSENT) Lactic Acid Level 0.9 mmol/L (0.4-2.0) Micro Results: * Urine culture is pending Recent Pertinent Medications * Pt is also receiving Rocephin 1gm IV every 24 hours Assessment & Plan * Loading dose: 1250 mg (~21mg/kg) IV X 1 dose in the ED then will follow with 750mg (~12.4mg/kg) IV every 14 hours. * Goal peak level estimate: between 30-40 mcg/mL. * Goal trough level estimate: between 16-18 mcg/mL. * Trough level is ordered for 1130 on 07/10 just prior to the 4th dose. Pharmacy will continue to follow and will adjust dose/frequency as necessary. Thank you
[2017-07-09 07:06] LABS: CREATININE 0.97 mg/dl (0.60-1.40)
[2017-07-09] MEDS: BUDESONIDE/FORMOTEROL FUMARATE 160/4.5 60 PUFFS/INHALER INH SCH ×2 (07:47→21:15)
[2017-07-09] MEDS: PANTOprazole SOD 40 MG TAB PO SCH (07:47)
[2017-07-09] MEDS: MAGNESIUM OXIDE 400 MG TAB PO SCH ×2 (07:48→21:16)
[2017-07-09] MEDS: DIGOXIN 0.125 MG TAB PO SCH (07:48)
[2017-07-09] MEDS: CARVEDILOL 3.125 MG TAB PO SCH ×2 (07:48→17:00)
[2017-07-09] MEDS: ATORVASTATIN 20 MG TAB PO SCH (07:49)
[2017-07-09] MEDS: LACTOBACILLUS ACIDOPHILUS (FLORANEX) TAB PO SCH ×2 (07:49→21:15)
[2017-07-09] MEDS: HEPARIN SOD 5000 UNIT/0.5 ML CARP SQ SCH ×3 (07:49→21:19)
[2017-07-09] MEDS: OXYBUTYNIN CHLORIDE 5 MG TAB PO SCH ×4 (07:49→21:15)
[2017-07-09] MEDS: ISOSORBIDE MONONITRATE 30 MG TABCR PO SCH (07:49)
[2017-07-09] MEDS: ESCITALOPRAM OXALATE 10 MG TAB PO SCH (07:50)
[2017-07-09] MEDS ORDERED: VANCOMYCIN IV 750 MG in SODIUM CHLORIDE 0.9% 250ML 250 ML IV SCH (08:00)
--- NOTE | 2017-07-09 09:32 | Family Medicine Progress Note ---
Progress Note Date of Service Jul 09, 2017. Subjective Pt evaluation today including: conversation w/ patient, physical exam, chart review, lab review, review of studies, review of inpatient medication list Pain: denies PO Intake: oral Voiding: cronin catheter in place no acute events overnight, Patient denies abdominal pain, n/v fevers, chills Constitutional: No fever, No chills Respiratory: No cough, No sputum, No shortness of breath Cardiovascular: No chest pain, No edema, No palpitations Abdomen: No pain, No nausea, No vomiting, No diarrhea Male : No dysuria, No urinary frequency, No hematuria Skin: No rash, No itch Medications Current Inpatient Medications Medications (Trade) Dose Ordered Sig/Eloisa Route Start Time Stop Time Status Last Admin Dose Admin Heparin Sodium (Porcine) (Heparin Sq 5000 Unit/0.5ml) 5,000 unit Q8 SQ 07/09/17 07:00 08/08/17 06:59 07/09/17 21:19 5,000 UNIT Acetaminophen (Tylenol Tab) 650 mg Q4H PRN PO 07/08/17 20:15 08/07/17 20:14 Al Hydrox/Mg Hydrox/Simethicone (Maalox Max Susp) 15 ml Q4H PRN PO 07/08/17 20:15 08/07/17 20:14 Magnesium Hydroxide (Milk Of Magnesia Susp) 30 ml Q12H PRN PO 07/08/17 20:15 08/07/17 20:14 Zolpidem Tartrate (Ambien Tab) 5 mg HSZ PRN PO 07/08/17 20:15 08/07/17 20:14 Ondansetron HCl (Zofran Inj) 4 mg Q6H PRN IV 07/08/17 20:15 08/07/17 20:14 Nitroglycerin (Nitrostat Tab) 0.4 mg UD PRN SL 07/08/17 20:15 08/07/17 20:14 Polyethylene (Miralax Powder Packet) 17 gm DAILY PRN PO 07/08/17 20:15 08/07/17 20:14 Miscellaneous Information (Consult) 1 ea UD PRN N/A 07/08/17 20:15 08/07/17 20:14 Ceftriaxone Sodium 1 gm/ Dextrose 50 ml @ 100 mls/hr Q24H IV 07/09/17 18:00 4/3/18 18:29 07/09/17 18:07 100 MLS/HR Miscellaneous (Iv Fluids Completed) 1 ea PRN PRN N/A 07/08/17 20:45 07/08/18 20:44 Albuterol Sulfate (Ventolin 0.083% 2.5MG/3ML Neb) 2.5 mg Q6H PRN INH 07/08/17 21:30 08/07/17 21:29 Atorvastatin Calcium (Lipitor Tab) 40 mg DAILY PO 07/09/17 09:00 08/08/17 08:59 07/09/17 07:49 40 MG Budesonide/ Formoterol Fumarate (Symbicort 160/ 4.5 Inh) 1 puffs BID INH 07/09/17 09:00 08/08/17 08:59 07/09/17 21:15 1 PUFFS Carvedilol (Coreg Tab) 3.125 mg BIDM PO 07/09/17 08:00 08/08/17 07:59 07/09/17 07:48 3.125 MG Digoxin (Lanoxin Tab) 0.125 mg DAILY@1600 PO 07/09/17 16:00 08/08/17 15:59 07/09/17 07:48 0.125 MG Escitalopram Oxalate (Lexapro Tab) 10 mg DAILY PO 07/09/17 09:00 08/08/17 08:59 07/09/17 07:50 10 MG Isosorbide Mononitrate (Imdur Ext Rel Tab) 30 mg QAM PO 07/09/17 09:00 08/08/17 08:59 07/09/17 07:49 30 MG Lactobacillus Acidophilus (Floranex Tab) 1 tab BID PO 07/09/17 09:00 08/08/17 08:59 07/09/17 21:15 1 TAB Magnesium Oxide (Mag-Ox Tab) 400 mg BID PO 07/09/17 09:00 08/08/17 08:59 07/09/17 21:16 400 MG Oxybutynin Chloride (Ditropan Tab) 5 mg QID PO 07/09/17 09:00 08/08/17 08:59 07/09/17 21:15 5 MG Pantoprazole Sodium (Protonix Tab) 40 mg QAM PO 07/09/17 09:00 4/25/18 08:59 07/09/17 07:47 40 MG Vancomycin HCl 1000 mg/Sodium Chloride 270 ml @ 125 mls/hr Q18H IV 07/10/17 02:00 07/18/17 23:59 Objective Vital Signs Date Time Temp Pulse Resp B/P (MAP) Pulse Ox O2 Delivery O2 Flow Rate FiO2 07/09/17 08:00 Nasal Cannula 2.0 07/09/17 07:48 68 07/09/17 07:00 36.5 73 18 127/72 (90) 96 Nasal Cannula 2.0 07/09/17 04:01 36.9 78 19 108/61 (77) 94 Nasal Cannula 2.0 07/09/17 04:00 Nasal Cannula 2.0 07/09/17 00:00 Nasal Cannula 2.0 07/08/17 23:37 36.5 71 18 149/84 (105) 97 Nasal Cannula 2.0 07/08/17 21:15 36.6 64 16 149/73 (98) 98 Nasal Cannula 2.0 07/08/17 21:00 60 16 98 07/08/17 20:40 36.6 64 16 149/73 98 Nasal Cannula 2.0 07/08/17 19:54 60 16 125/74 98 Nasal Cannula 2.0 07/08/17 18:27 62 18 102/62 98 Nasal Cannula 2.0 07/08/17 18:16 61 07/08/17 16:44 68 20 108/72 96 Nasal Cannula 2.0 07/08/17 15:13 64 07/08/17 15:00 95 Nasal Cannula 2.0 07/08/17 14:55 36.9 68 20 145/78 88 Room Air Physical Exam Notes: GENERAL: alert, well appearing, no distress, non-toxic EYE EXAM: normal conjunctiva, PERRL and EOM's grossly intact OROPHARYNX: no exudate, no erythema, lips, buccal mucosa, and tongue normal and mucous membranes are moist NECK: supple, no nuchal rigidity, no adenopathy, non-tender LUNGS: Clear to auscultation. Normal chest wall mechanics HEART: no murmurs, S1 normal and S2 normal ABDOMEN: abdomen soft, non-tender, normo-active bowel sounds, no masses, no rebound or guarding. UPPER EXTREMITIES: upper extremities are grossly normal. LOWER EXTREMITIES: No pitting edema. NEURO EXAM: AOx3, cranial nerves II-XII grossly intact, normal speech, Laboratory Results Results Past 24 Hours Test 07/08/17 15:30 07/08/17 16:40 07/08/17 20:35 07/09/17 02:01 Range/Units White Blood Count 9.26 4.8-10.8 K/uL Red Blood Count 5.20 4.7-6.1 M/uL Hemoglobin 16.0 14.0-18.0 g/dL Hematocrit 45.8 42-52 % Mean Corpuscular Volume 88.1 80-100 fL Mean Corpuscular Hemoglobin 30.8 25-34 pg Mean Corpuscular Hemoglobin Concent 34.9 32-36 g/dl Platelet Count 170 130-400 K/uL Mean Platelet Volume 9.8 7.4-10.4 fL Neutrophils (%) (Auto) 69.9 % Lymphocytes (%) (Auto) 14.0 % Monocytes (%) (Auto) 8.7 % Eosinophils (%) (Auto) 6.4 % Basophils (%) (Auto) 0.5 % Neutrophils # (Auto) 6.46 1.4-6.5 K/uL Lymphocytes # (Auto) 1.30 1.2-3.4 K/uL Monocytes # (Auto) 0.81 0.11-0.59 K/uL Eosinophils # (Auto) 0.59 0-0.5 K/uL Basophils # (Auto) 0.05 0-0.2 K/uL RDW Standard Deviation 42.1 36.4-46.3 fL RDW Coefficient of Variation 13.2 11.5-14.5 % Immature Granulocyte % (Auto) 0.5 % Immature Granulocyte # (Auto) 0.05 0.00-0.02 K/uL Sodium Level 132 136-145 mmol/L Potassium Level 4.1 3.5-5.1 mmol/L Chloride Level 95 98-107 mmol/L Carbon Dioxide Level 30 21-32 mmol/L Anion Gap 7.0 3-11 mmol/L Blood Urea Nitrogen 10 7-18 mg/dl Creatinine 0.77 0.60-1.40 mg/dl Est Creatinine Clear Calc Drug Dose 56.9 ml/min Estimated GFR () 93.9 Estimated GFR (Non- 81.0 BUN/Creatinine Ratio 12.6 10-20 Random Glucose 99 70-99 mg/dl Calcium Level 8.9 8.5-10.1 mg/dl Total Bilirubin 0.6 0.2-1 mg/dl Direct Bilirubin 0.2 0-0.2 mg/dl Aspartate Amino Transf (AST/SGOT) 17 15-37 U/L Alanine Aminotransferase (ALT/SGPT) 22 12-78 U/L Alkaline Phosphatase 103 45-117 U/L Troponin I 0.016 < 0.015 < 0.015 0-0.045 ng/ml Total Protein 7.5 6.4-8.2 gm/dl Albumin 3.2 3.4-5.0 gm/dl Urine Color YELLOW Urine Appearance TURBID CLEAR Urine pH 8.5 4.5-7.5 Urine Specific [place] 1.016 1.000-1.030 Urine Protein 1+ NEG Urine Glucose (UA) NEG NEG Urine Ketones NEG NEG Urine Occult Blood 1+ NEG Urine Nitrite POS NEG Urine Bilirubin NEG NEG Urine Urobilinogen NEG NEG Urine Leukocyte Esterase LARGE NEG Urine WBC (Auto) >30 0-5 /hpf Urine RBC (Auto) 0-4 0-4 /hpf Urine Hyaline Casts (Auto) 5-10 0-5 /lpf Urine Epithelial Cells (Auto) >30 0-5 /lpf Urine Bacteria (Auto) 4+ NEG Urine Crystals TRIPLE PHOSPHATE NONE PRSENT Urine Yeast (Auto) NONE PRSENT Lactic Acid Level 0.9 0.4-2.0 mmol/L Test 07/09/17 06:25 Range/Units Prothrombin Time 10.7 9.0-12.0 SECONDS Prothromb Time International Ratio 1.0 0.9-1.1 Creatinine 0.97 0.60-1.40 mg/dl Est Creatinine Clear Calc Drug Dose 44.5 ml/min Estimated GFR () 80.5 Estimated GFR (Non- 69.4 Microbiology Results 07/08/17 Urine Culture, Received Pending Assessment and Plan 87 yo M paraplegic with h/o COPD, CAD with a chronic indwelling catheter p/w Acute encephalopathy in the setting of UTI UTI: likely catheter associated infection from chronic cronin use afebrile, new leukocytosis from arrival Continue Rocephin, Vancomycin Urine cx shows Meg neg bacteruria, F/u final cx result Follow clinically Acute Encephalopathy: in the setting of UTI Altered mental status resolved with UTI treatment CAD c/w Coreg 3.125mg BID c/w digoxin 0.125mg daily. c/w Imdur c/w Lipitor 50mg daily. COPD: stable, continue Symbicort, Albuterol nebs GERD: Continue PPI Depression: Continue Lexapro DVT Prophylaxis: Heparin Full Resuscitation Disposition: Home with home health Continued [facility] stay due to: multiple IV medications needed Discharge planning: home with home health Assessment/Plan Resident Physician Supervision Note: I was present with Dr. Rahman during the history and exam. I discussed the case with the resident and agree with the findings and plan as documented in the note. Any exceptions or clarifications are listed here. Pt reports resolution of foggy sensation/AMS and is awake, alert and oriented x 3 without difficulty. He states that he's noted his urine has cleared up some since his initial presentation. Abdomen is NT/ND, BS nl. Agree w/ narrow to ceftriaxone and await C/S for final abx decision. Monitor for further mental status changes. Resident Tracking Resident Involvement: Resident Care Provided Care Provided: Adult Hospital Medicine
[2017-07-09 10:23] LABS: BASO % 0.2 %; BASO ABS # 0.03 K/uL (0-0.2); EOS % 1.3 %; EOS ABS # 0.21 K/uL (0-0.5); HEMATOCRIT 47.8 % (42-52); HEMOGLOBIN 16.2 g/dL (14.0-18.0); IG# 0.06 K/uL (0.00-0.02); LYMPH % 4.8 %; LYMPH ABS # 0.76 K/uL (1.2-3.4); MEAN CORPUSCULAR HEMOGLOBIN 30.2 pg (25-34); MEAN CORPUSCULAR HGB CONC 33.9 g/dl (32-36); MEAN PLATELET VOLUME 10.3 fL (7.4-10.4); MONO % 7.2 %; MONO ABS # 1.13 K/uL (0.11-0.59); NEUT % 86.1 %; NEUT ABS # 13.51 K/uL (1.4-6.5); PLATELET COUNT 193 K/uL (130-400); RED CELL DISTRIBUTION WIDTH CV 13.4 % (11.5-14.5); RED CELL DISTRIBUTION WIDTH SD 43.3 fL (36.4-46.3)
[2017-07-09] MEDS: CEFTRIAXONE SOD INJ 1 GM in DEXTROSE 5% ADD-VANTAGE 50ML 50 ML IV SCH (18:07)
[2017-07-10] VITALS (7 sets, daily range): BP systolic 96–153; BP diastolic 47–71; PULSE 60–88; TEMP 36.6–36.9; O2SAT 91–92
[2017-07-10] MEDS ORDERED: VANCOMYCIN IV 1,000 MG in SODIUM CHLORIDE 0.9% 250ML 250 ML IV SCH (02:00)
[2017-07-10] MEDS: HEPARIN SOD 5000 UNIT/0.5 ML CARP SQ SCH ×3 (06:06→21:26)
[2017-07-10 07:06] LABS: CREATININE 1.15 mg/dl (0.60-1.40)
[2017-07-10 07:18] LABS: BASO % 0.6 %; BASO ABS # 0.05 K/uL (0-0.2); EOS % 6.3 %; EOS ABS # 0.53 K/uL (0-0.5); HEMATOCRIT 42.7 % (42-52); HEMOGLOBIN 14.6 g/dL (14.0-18.0); IG# 0.04 K/uL (0.00-0.02); LYMPH % 16.1 %; LYMPH ABS # 1.35 K/uL (1.2-3.4); MEAN CORPUSCULAR HEMOGLOBIN 30.4 pg (25-34); MEAN CORPUSCULAR HGB CONC 34.2 g/dl (32-36); MEAN PLATELET VOLUME 9.9 fL (7.4-10.4); MONO % 9.4 %; MONO ABS # 0.79 K/uL (0.11-0.59); NEUT % 67.1 %; NEUT ABS # 5.63 K/uL (1.4-6.5); PLATELET COUNT 175 K/uL (130-400); RED CELL DISTRIBUTION WIDTH CV 13.3 % (11.5-14.5); RED CELL DISTRIBUTION WIDTH SD 43.7 fL (36.4-46.3); WHITE BLOOD COUNT 8.39 K/uL (4.8-10.8)
[2017-07-10] MEDS: OXYBUTYNIN CHLORIDE 5 MG TAB PO SCH ×4 (07:40→21:19)
[2017-07-10] MEDS: PANTOprazole SOD 40 MG TAB PO SCH (07:40)
[2017-07-10] MEDS: CARVEDILOL 3.125 MG TAB PO SCH ×2 (07:40→18:32)
[2017-07-10] MEDS: BUDESONIDE/FORMOTEROL FUMARATE 160/4.5 60 PUFFS/INHALER INH SCH ×2 (07:40→21:18)
[2017-07-10] MEDS: LACTOBACILLUS ACIDOPHILUS (FLORANEX) TAB PO SCH ×2 (07:41→21:19)
[2017-07-10] MEDS: ISOSORBIDE MONONITRATE 30 MG TABCR PO SCH (07:41)
[2017-07-10] MEDS: ESCITALOPRAM OXALATE 10 MG TAB PO SCH (07:41)
[2017-07-10] MEDS: MAGNESIUM OXIDE 400 MG TAB PO SCH ×2 (07:41→21:19)
[2017-07-10] MEDS: ATORVASTATIN 20 MG TAB PO SCH (07:42)
--- NOTE | 2017-07-10 08:46 | Family Medicine Progress Note ---
Progress Note Date of Service Jul 10, 2017. Subjective Pt evaluation today including: conversation w/ patient, physical exam, chart review, lab review Pain: denies PO Intake: adequate Voiding: cronin catheter in place No acute events overnight. Patient feeling much improved from arrival . Additional Comments: Constitutional: No fever, No chills Respiratory: No cough, No sputum, No shortness of breath Cardiovascular: No chest pain, No edema, No palpitations Abdomen: No pain, No nausea, No vomiting, No diarrhea Male : No dysuria, No hematuria, cronin in place Skin: No rash, No itch Medications Current Inpatient Medications Medications (Trade) Dose Ordered Sig/Eloisa Route Start Time Stop Time Status Last Admin Dose Admin Heparin Sodium (Porcine) (Heparin Sq 5000 Unit/0.5ml) 5,000 unit Q8 SQ 07/09/17 07:00 08/08/17 06:59 07/10/17 06:06 5,000 UNIT Acetaminophen (Tylenol Tab) 650 mg Q4H PRN PO 07/08/17 20:15 08/07/17 20:14 Al Hydrox/Mg Hydrox/Simethicone (Maalox Max Susp) 15 ml Q4H PRN PO 07/08/17 20:15 08/07/17 20:14 Magnesium Hydroxide (Milk Of Magnesia Susp) 30 ml Q12H PRN PO 07/08/17 20:15 08/07/17 20:14 Zolpidem Tartrate (Ambien Tab) 5 mg HSZ PRN PO 07/08/17 20:15 08/07/17 20:14 Ondansetron HCl (Zofran Inj) 4 mg Q6H PRN IV 07/08/17 20:15 08/07/17 20:14 Nitroglycerin (Nitrostat Tab) 0.4 mg UD PRN SL 07/08/17 20:15 08/07/17 20:14 Polyethylene (Miralax Powder Packet) 17 gm DAILY PRN PO 07/08/17 20:15 08/07/17 20:14 Miscellaneous Information (Consult) 1 ea UD PRN N/A 07/08/17 20:15 08/07/17 20:14 Ceftriaxone Sodium 1 gm/ Dextrose 50 ml @ 100 mls/hr Q24H IV 07/09/17 18:00 07/17/17 18:29 07/09/17 18:07 100 MLS/HR Miscellaneous (Iv Fluids Completed) 1 ea PRN PRN N/A 07/08/17 20:45 07/08/18 20:44 Albuterol Sulfate (Ventolin 0.083% 2.5MG/3ML Neb) 2.5 mg Q6H PRN INH 07/08/17 21:30 08/07/17 21:29 Atorvastatin Calcium (Lipitor Tab) 40 mg DAILY PO 07/09/17 09:00 08/08/17 08:59 07/10/17 07:42 40 MG Budesonide/ Formoterol Fumarate (Symbicort 160/ 4.5 Inh) 1 puffs BID INH 07/09/17 09:00 08/08/17 08:59 07/10/17 07:40 1 PUFFS Carvedilol (Coreg Tab) 3.125 mg BIDM PO 07/09/17 08:00 08/08/17 07:59 07/10/17 07:40 3.125 MG Digoxin (Lanoxin Tab) 0.125 mg DAILY@1600 PO 07/09/17 16:00 08/08/17 15:59 07/09/17 07:48 0.125 MG Escitalopram Oxalate (Lexapro Tab) 10 mg DAILY PO 07/09/17 09:00 08/08/17 08:59 07/10/17 07:41 10 MG Isosorbide Mononitrate (Imdur Ext Rel Tab) 30 mg QAM PO 07/09/17 09:00 08/08/17 08:59 07/10/17 07:41 30 MG Lactobacillus Acidophilus (Floranex Tab) 1 tab BID PO 07/09/17 09:00 08/08/17 08:59 07/10/17 07:41 1 TAB Magnesium Oxide (Mag-Ox Tab) 400 mg BID PO 07/09/17 09:00 08/08/17 08:59 07/10/17 07:41 400 MG Oxybutynin Chloride (Ditropan Tab) 5 mg QID PO 07/09/17 09:00 08/08/17 08:59 07/10/17 07:40 5 MG Pantoprazole Sodium (Protonix Tab) 40 mg QAM PO 07/09/17 09:00 08/08/17 08:59 07/10/17 07:40 40 MG Vancomycin HCl 1000 mg/Sodium Chloride 270 ml @ 125 mls/hr Q18H IV 07/10/17 02:00 07/18/17 23:59 07/10/17 02:10 125 MLS/HR Objective Vital Signs Date Time Temp Pulse Resp B/P (MAP) Pulse Ox O2 Delivery O2 Flow Rate FiO2 07/10/17 07:37 36.8 66 18 131/71 (91) 92 Room Air 07/10/17 04:00 36.7 63 20 116/62 (80) 92 Room Air 07/10/17 04:00 Room Air 07/10/17 00:00 Room Air 07/10/17 00:00 36.8 68 18 96/47 (63) 91 Room Air 07/09/17 20:00 Room Air 07/09/17 19:53 37.2 69 20 87/47 (60) 91 Room Air 07/09/17 18:11 69 88/49 (62) 07/09/17 16:00 91 Room Air 07/09/17 15:40 36.8 65 20 89/51 (64) 91 Room Air 07/09/17 12:00 Nasal Cannula 2.0 07/09/17 11:43 36.9 91 18 120/63 (82) 93 Room Air Physical Exam Notes: GENERAL: alert, well appearing, no distress, non-toxic EYE EXAM: normal conjunctiva, PERRL and EOM's grossly intact OROPHARYNX: no exudate, no erythema, lips, buccal mucosa, and tongue normal and mucous membranes are moist NECK: supple, no nuchal rigidity, no adenopathy, non-tender LUNGS: Clear to auscultation. Normal chest wall mechanics HEART: no murmurs, S1 normal and S2 normal ABDOMEN: abdomen soft, non-tender, normo-active bowel sounds, no masses, no rebound or guarding. UPPER EXTREMITIES: upper extremities are grossly normal. LOWER EXTREMITIES: No pitting edema. NEURO EXAM: AOx3, cranial nerves II-XII grossly intact, normal speech, Laboratory Results Results Past 24 Hours Test 07/10/17 06:27 07/10/17 06:31 Range/Units Creatinine 1.15 0.60-1.40 mg/dl Est Creatinine Clear Calc Drug Dose 37.9 ml/min Estimated GFR () 65.5 Estimated GFR (Non- 56.5 White Blood Count 8.39 4.8-10.8 K/uL Red Blood Count 4.80 4.7-6.1 M/uL Hemoglobin 14.6 14.0-18.0 g/dL Hematocrit 42.7 42-52 % Mean Corpuscular Volume 89.0 80-100 fL Mean Corpuscular Hemoglobin 30.4 25-34 pg Mean Corpuscular Hemoglobin Concent 34.2 32-36 g/dl Platelet Count 175 130-400 K/uL Mean Platelet Volume 9.9 7.4-10.4 fL Neutrophils (%) (Auto) 67.1 % Lymphocytes (%) (Auto) 16.1 % Monocytes (%) (Auto) 9.4 % Eosinophils (%) (Auto) 6.3 % Basophils (%) (Auto) 0.6 % Neutrophils # (Auto) 5.63 1.4-6.5 K/uL Lymphocytes # (Auto) 1.35 1.2-3.4 K/uL Monocytes # (Auto) 0.79 0.11-0.59 K/uL Eosinophils # (Auto) 0.53 0-0.5 K/uL Basophils # (Auto) 0.05 0-0.2 K/uL RDW Standard Deviation 43.7 36.4-46.3 fL RDW Coefficient of Variation 13.3 11.5-14.5 % Immature Granulocyte % (Auto) 0.5 % Immature Granulocyte # (Auto) 0.04 0.00-0.02 K/uL Assessment and Plan 87 yo M paraplegic with h/o COPD, CAD with a chronic indwelling catheter p/w Acute encephalopathy in the setting of UTI UTI: likely catheter associated infection from chronic cronin use afebrile, new leukocytosis from arrival Continue Rocephin, Vancomycin Urine cx shows Meg neg bacteruria, F/u final cx result Follow clinically Acute Encephalopathy: in the setting of UTI Altered mental status resolved with UTI treatment Continue to monitor CAD c/w Coreg 3.125mg BID c/w digoxin 0.125mg daily. c/w Imdur c/w Lipitor 50mg daily. COPD: stable, continue Symbicort, Albuterol nebs GERD: Continue PPI Depression: Continue Lexapro DVT Prophylaxis: Heparin Full Resuscitation Disposition: Home with home health, Katie lift prescribed for home Continued [facility] stay due to: multiple IV medications needed Discharge planning: home with home health Resident Tracking Resident Involvement: Resident Care Provided Care Provided: Adult Hospital Medicine Assessment/Plan Resident Physician Supervision Note: I was present with Dr. Rahman during the history and exam. I discussed the case with the resident and agree with the findings and plan as documented in the note. Any exceptions or clarifications are listed here. Pt seen and examined at bedside without present complaint. Reports no abdominal pain, nausea, TALAVERA, fever/flushing, SOB/cough. Per microbiology, no appreciable C/S available from present sample, so will likely need repeat and re-evaluation. Continue abx at present considering improvement and consider transition to PO in AM.
--- NOTE | 2017-07-10 09:03 | Family Medicine Progress Note ---
Progress Note Date of Service Jul 10, 2017. Objective Vital Signs Date Time Temp Pulse Resp B/P (MAP) Pulse Ox O2 Delivery O2 Flow Rate FiO2 07/10/17 07:37 36.8 66 18 131/71 (91) 92 Room Air 07/10/17 04:00 36.7 63 20 116/62 (80) 92 Room Air 07/10/17 04:00 Room Air 07/10/17 00:00 Room Air 07/10/17 00:00 36.8 68 18 96/47 (63) 91 Room Air 07/09/17 20:00 Room Air 07/09/17 19:53 37.2 69 20 87/47 (60) 91 Room Air 07/09/17 18:11 69 88/49 (62) 07/09/17 16:00 91 Room Air 07/09/17 15:40 36.8 65 20 89/51 (64) 91 Room Air 07/09/17 12:00 Nasal Cannula 2.0 07/09/17 11:43 36.9 91 18 120/63 (82) 93 Room Air Laboratory Results Results Past 24 Hours Test 07/10/17 06:27 07/10/17 06:31 Range/Units Creatinine 1.15 0.60-1.40 mg/dl Est Creatinine Clear Calc Drug Dose 37.9 ml/min Estimated GFR () 65.5 Estimated GFR (Non- 56.5 White Blood Count 8.39 4.8-10.8 K/uL Red Blood Count 4.80 4.7-6.1 M/uL Hemoglobin 14.6 14.0-18.0 g/dL Hematocrit 42.7 42-52 % Mean Corpuscular Volume 89.0 80-100 fL Mean Corpuscular Hemoglobin 30.4 25-34 pg Mean Corpuscular Hemoglobin Concent 34.2 32-36 g/dl Platelet Count 175 130-400 K/uL Mean Platelet Volume 9.9 7.4-10.4 fL Neutrophils (%) (Auto) 67.1 % Lymphocytes (%) (Auto) 16.1 % Monocytes (%) (Auto) 9.4 % Eosinophils (%) (Auto) 6.3 % Basophils (%) (Auto) 0.6 % Neutrophils # (Auto) 5.63 1.4-6.5 K/uL Lymphocytes # (Auto) 1.35 1.2-3.4 K/uL Monocytes # (Auto) 0.79 0.11-0.59 K/uL Eosinophils # (Auto) 0.53 0-0.5 K/uL Basophils # (Auto) 0.05 0-0.2 K/uL RDW Standard Deviation 43.7 36.4-46.3 fL RDW Coefficient of Variation 13.3 11.5-14.5 % Immature Granulocyte % (Auto) 0.5 % Immature Granulocyte # (Auto) 0.04 0.00-0.02 K/uL Resident Tracking Resident Involvement: Resident Care Provided Care Provided: [facility] Medicine
[2017-07-10] MEDS ORDERED: VANCOMYCIN TROUGH ONE ×2 (11:30→19:30)
[2017-07-10] MEDS: DIGOXIN 0.125 MG TAB PO SCH (15:57)
[2017-07-10] MEDS: CEFTRIAXONE SOD INJ 1 GM in DEXTROSE 5% ADD-VANTAGE 50ML 50 ML IV SCH (18:32)
[2017-07-10] MEDS: VANCOMYCIN IV 1,000 MG in SODIUM CHLORIDE 0.9% 250ML 250 ML IV STA ×2 (21:18→21:36)
[2017-07-11 04:00] VITALS: BP 148/78; PULSE 66; TEMP 36.8; O2SAT 92
[2017-07-11] MEDS: HEPARIN SOD 5000 UNIT/0.5 ML CARP SQ SCH ×2 (06:03→14:00)
[2017-07-11 06:38] LABS: CREATININE 1.16 mg/dl (0.60-1.40)
[2017-07-11 07:18] VITALS: BP 146/66; PULSE 68; TEMP 36.7; O2SAT 93
[2017-07-11 08:00] VITALS: O2SAT 93
[2017-07-11] MEDS: BUDESONIDE/FORMOTEROL FUMARATE 160/4.5 60 PUFFS/INHALER INH SCH (08:02)
[2017-07-11] MEDS: CARVEDILOL 3.125 MG TAB PO SCH (08:03)
[2017-07-11] MEDS: OXYBUTYNIN CHLORIDE 5 MG TAB PO SCH ×2 (08:03→12:37)
[2017-07-11] MEDS: LACTOBACILLUS ACIDOPHILUS (FLORANEX) TAB PO SCH (08:03)
[2017-07-11] MEDS: ESCITALOPRAM OXALATE 10 MG TAB PO SCH (08:04)
[2017-07-11] MEDS: ATORVASTATIN 20 MG TAB PO SCH (08:04)
[2017-07-11] MEDS: ISOSORBIDE MONONITRATE 30 MG TABCR PO SCH (08:04)
[2017-07-11] MEDS: PANTOprazole SOD 40 MG TAB PO SCH (08:05)
[2017-07-11] MEDS: MAGNESIUM OXIDE 400 MG TAB PO SCH (08:05)
--- NOTE | 2017-07-11 08:17 | Family Medicine Progress Note ---
Progress Note Date of Service Jul 11, 2017. Medications Current Inpatient Medications Medications (Trade) Dose Ordered Sig/Eloisa Route Start Time Stop Time Status Last Admin Dose Admin Heparin Sodium (Porcine) (Heparin Sq 5000 Unit/0.5ml) 5,000 unit Q8 SQ 07/09/17 07:00 08/08/17 06:59 07/11/17 06:03 5,000 UNIT Acetaminophen (Tylenol Tab) 650 mg Q4H PRN PO 07/08/17 20:15 08/07/17 20:14 Al Hydrox/Mg Hydrox/Simethicone (Maalox Max Susp) 15 ml Q4H PRN PO 07/08/17 20:15 08/07/17 20:14 Magnesium Hydroxide (Milk Of Magnesia Susp) 30 ml Q12H PRN PO 07/08/17 20:15 08/07/17 20:14 Zolpidem Tartrate (Ambien Tab) 5 mg HSZ PRN PO 07/08/17 20:15 08/07/17 20:14 Ondansetron HCl (Zofran Inj) 4 mg Q6H PRN IV 07/08/17 20:15 08/07/17 20:14 Nitroglycerin (Nitrostat Tab) 0.4 mg UD PRN SL 07/08/17 20:15 08/07/17 20:14 Polyethylene (Miralax Powder Packet) 17 gm DAILY PRN PO 07/08/17 20:15 08/07/17 20:14 Miscellaneous Information (Consult) 1 ea UD PRN N/A 07/08/17 20:15 08/07/17 20:14 Ceftriaxone Sodium 1 gm/ Dextrose 50 ml @ 100 mls/hr Q24H IV 07/09/17 18:00 07/17/17 18:29 07/10/17 18:32 100 MLS/HR Miscellaneous (Iv Fluids Completed) 1 ea PRN PRN N/A 07/08/17 20:45 07/08/18 20:44 Albuterol Sulfate (Ventolin 0.083% 2.5MG/3ML Neb) 2.5 mg Q6H PRN INH 07/08/17 21:30 08/07/17 21:29 Atorvastatin Calcium (Lipitor Tab) 40 mg DAILY PO 07/09/17 09:00 08/08/17 08:59 07/11/17 08:04 40 MG Budesonide/ Formoterol Fumarate (Symbicort 160/ 4.5 Inh) 1 puffs BID INH 07/09/17 09:00 08/08/17 08:59 07/11/17 08:02 1 PUFFS Carvedilol (Coreg Tab) 3.125 mg BIDM PO 07/09/17 08:00 08/08/17 07:59 07/11/17 08:03 3.125 MG Digoxin (Lanoxin Tab) 0.125 mg DAILY@1600 PO 07/09/17 16:00 08/08/17 15:59 07/10/17 15:57 0.125 MG Escitalopram Oxalate (Lexapro Tab) 10 mg DAILY PO 07/09/17 09:00 08/08/17 08:59 07/11/17 08:04 10 MG Isosorbide Mononitrate (Imdur Ext Rel Tab) 30 mg QAM PO 07/09/17 09:00 08/08/17 08:59 07/11/17 08:04 30 MG Lactobacillus Acidophilus (Floranex Tab) 1 tab BID PO 07/09/17 09:00 08/08/17 08:59 07/11/17 08:03 1 TAB Magnesium Oxide (Mag-Ox Tab) 400 mg BID PO 07/09/17 09:00 08/08/17 08:59 07/11/17 08:05 400 MG Oxybutynin Chloride (Ditropan Tab) 5 mg QID PO 07/09/17 09:00 08/08/17 08:59 07/11/17 08:03 5 MG Pantoprazole Sodium (Protonix Tab) 40 mg QAM PO 07/09/17 09:00 08/08/17 08:59 07/11/17 08:05 40 MG Vancomycin HCl 1000 mg/Sodium Chloride 270 ml @ 125 mls/hr Q18H IV 07/10/17 02:00 07/18/17 23:59 Future hold 07/10/17 02:10 125 MLS/HR Objective Vital Signs Date Time Temp Pulse Resp B/P (MAP) Pulse Ox O2 Delivery O2 Flow Rate FiO2 07/11/17 07:18 36.7 68 16 146/66 (92) 93 Room Air 07/11/17 04:00 36.8 66 18 148/78 (101) 92 Room Air 07/11/17 03:57 Room Air 07/11/17 00:09 Room Air 07/10/17 23:47 36.8 65 18 120/68 (85) 92 Room Air 07/10/17 20:00 Room Air 07/10/17 19:40 36.9 68 18 120/63 (82) 92 Room Air 07/10/17 16:00 Room Air 07/10/17 15:57 36.6 60 18 102/51 (68) 92 Room Air 07/10/17 15:57 63 07/10/17 12:00 Nasal Cannula 2.0 07/10/17 11:30 36.6 66 18 132/64 (86) 92 Room Air Laboratory Results Date Time Temp Pulse Resp B/P (MAP) Pulse Ox O2 Delivery O2 Flow Rate FiO2 07/11/17 07:18 36.7 68 16 146/66 (92) 93 Room Air 07/11/17 04:00 36.8 66 18 148/78 (101) 92 Room Air 07/11/17 03:57 Room Air 07/11/17 00:09 Room Air 07/10/17 23:47 36.8 65 18 120/68 (85) 92 Room Air 07/10/17 20:00 Room Air 07/10/17 19:40 36.9 68 18 120/63 (82) 92 Room Air 07/10/17 16:00 Room Air 07/10/17 15:57 36.6 60 18 102/51 (68) 92 Room Air 07/10/17 15:57 63 07/10/17 12:00 Nasal Cannula 2.0 07/10/17 11:30 36.6 66 18 132/64 (86) 92 Room Air Resident Tracking Resident Involvement: Resident Care Provided Care Provided: Adult Hospital Medicine
[2017-07-11] MEDS ORDERED: CEFDINIR 300 MG CAP PO SCH (09:00)
[2017-07-11 12:00] VITALS: O2SAT 93
[2017-07-11 12:30] VITALS: BP 106/60; PULSE 70; TEMP 36.8; O2SAT 92
[2017-07-11] MEDS ORDERED: CEFD300C3 PO (12:40)
--- NOTE | 2017-07-11 12:50 | Discharge Instructions ---
Discharge Instructions Date of Service Jul 11, 2017. Admission Reason for Admission: UTI Discharge Discharge Diagnosis / Problem: UTI Discharge Goals Goal(s): Decrease discomfort, Improve function, Increase independence, Improve disease control, Improve nutritional status, Learn about illness, Diagnostic testing, Therapeutic intervention, Screening, Prevent Disease Progression Activity Recommendations Activity Limitations: resume your previous activity . Instructions / Follow-Up Instructions / Follow-Up You were admitted with a urinary tract infection. You were started on antibiotics and your condition showed improvement. -Please take antibiotic ( Cefonicid) as prescribed -Please follow up with Primary care provider within 1 week -If you notice worsening abdominal pain, blood in urine, urinary frequency fevers or chills, please notify primary care provider or if concerned return to Emergency dept for evaluation -If your urine culture shows bacteria that is not covered by antibiotic, you will be notified Current Hospital Diet Patient's current hospital diet: AHA Diet (Heart Healthy) Discharge Diet Recommended Diet: Regular Diet Pending Studies Studies pending at discharge: yes (Urine culture) List of pending studies: Urine culture Medical Emergencies . Who to Call and When: Medical Emergencies: If at any time you feel your situation is an emergency, please call 911 immediately. . Non-Emergent Contact Non-Emergency issues call your: Primary Care Provider Call Non-Emergent contact if: you have a fever, your pain is not controlled, your pain is worsening, your pain is unusual for you, your pain is concerning you, you have any medication questions . . "Provider Documentation" section prepared by Maurice Rahman. .
[2017-07-11 12:53] VITALS: BP 106/60; PULSE 70; TEMP 36.8; O2SAT 92
--- NOTE | 2017-07-11 12:54 | Discharge Summary ---
Discharge Summary Date of Service Jul 11, 2017. Discharge Summary Admission Date: Jul 08, 2017 at 20:16 Discharge Date: Jul 11, 2017 Discharge Disposition: Home Principal Diagnosis: UTI Problems/Secondary Diagnoses: Acute Encephalopathy Immunizations: Have You Had Influenza Vaccine: No History of Tetanus Vaccine?: Unknown Tetanus Immunization Date: Jan 22, 2009 History of Pneumococcal: Yes Pneumococcal Date: Mar 27, 2011 History of Hepatitis B Vaccine: Unknown Procedures: CHEST ONE VIEW PORTABLE CLINICAL HISTORY: 87 years-old Male presenting with Confusion. TECHNIQUE: Portable upright AP view of the chest was obtained. COMPARISON: 05/16/2017. FINDINGS: Left subclavian implanted cardiac defibrillator with leads to the right atrium and right ventricular apex. Atherosclerosis of aortic arch. Cardiac silhouette normal in size. Hyperinflation of the lungs. No focal opacity. No large effusion or pneumothorax. Left retrocardiac opacity may indicate the presence of a hiatal hernia. Extensive posterior thoracolumbar fusion hardware. IMPRESSION: 1. Lung hyperinflation could indicate underlying emphysema. No superimposed infiltrate to suggest acute cardiopulmonary disease. 2. Hiatal hernia. Medication Reconciliation New Medications: Cefdinir (Cefdinir) 300 Mg Cap 300 MG PO BID for 7 Days, #14 CAP 0 Refills Continued Medications: Acetaminophen (Tylenol) 500 Mg Tab 1-2 TAB PO Q6 PRN for Pain or Fever for 2 Days, #20 TAB 3 Refills Albuterol Sulf (Proventil 0.083% 2.5MG/3ML) 2.5 Mg/3 Ml Nebu 2.5 MG INH Q6H PRN for Shortness of Breath, EA Albuterol Sulfate (Proair Respiclick) 108 Mcg/Act Aer 1-2 PUFFS INH Q4 PRN for Shortness of Breath Atorvastatin (Lipitor) 40 Mg Tab 40 MG PO DAILY, TAB Budesonide/Formoterol Fumarate (Symbicort 160/4.5 Inhaler ) Aero 1 PUFFS INH BID, INHALER Carvedilol (Coreg) 3.125 Mg Tab 3.125 MG PO BIDM, TAB TAKE WITH MORNING AND EVENING MEALS Cholecalciferol (Vitamin D 1000 Unit) 1,000 Unit Cap 1000 INTER.UNIT PO DAILY, CAP Cranberry-Vitamin C-Vitamin E (Cranberry Plus Vitamin C 4200-20-3 mg-Unit) 1 Cap Cap 1 CAP PO DAILY Digoxin (Digox) 125 Mcg Tab 1 TAB PO DAILY Escitalopram (Lexapro) 10 Mg Tab 10 MG PO DAILY, TAB Fluticasone Propionate (Nasal) (Flonase Allergy Relief) 50 Mcg/Act Spr 1 SPRAY BARRY DAILY Guaifenesin La (Guaifenesin Er) 600 Mg Tabcr 600 MG PO Q12H PRN for CONGESTION, TAB Isosorbide Mononitrate Ext Rel (Imdur Ext Rel) 30 Mg Ertab 30 MG PO QAM, TAB Lactobacillus (Lactinex) Chw 1 TABLET PO BID, CHW Magnesium Oxide (Mag-Ox) 400 Mg Tab 400 MG PO BID, 0 Refills Menthol-Zinc Oxide (Moisture Barrier 0.44-20.6 %) 1 Oin Oin 1 APPLN TP BID AND PRN INCONTINENCE Metaxalone (Skelaxin) 800 Mg Tab 800 MG PO Q8 PRN for PRN, 0 Refills Multiple Vitamin (Multivitamin) 1 Tab Tab 1 TAB PO DAILY, TAB Multivitamins/Minerals (Cerovite Advanced Formula) 1 Tab Tab 1 TAB PO QAM Mupirocin 2% (Bactroban 2%) 30 Gm Cr 1 APPLN EXT TID PRN for Itching, TUBE Omeprazole (Prilosec) 40 Mg Cap 40 MG PO DAILY, CAP Oxybutynin Chloride (Oxybutynin Chloride) 5 Mg Tab 1 TAB PO QID START ONE DAY PRIOR TO CRONIN CATHETER Saline (Saline Nasal [place]) 0.65 % Spr 1 SPRAY BARRY DAILY PRN for DRYNESS Discontinued Medications: Cephalexin Monohydrate (Cephalexin) 250 Mg Cap 500 MG PO BID for 10 Days, #20 CAP Discharge Exam Constitutional: No fever, No chills Respiratory: No cough, No sputum, No shortness of breath Cardiovascular: No chest pain, No edema, No palpitations Abdomen: No pain, No nausea, No vomiting, No diarrhea Male : No dysuria, No hematuria, cronin in place Skin: No rash, No itch GENERAL: alert, well appearing, no distress, non-toxic EYE EXAM: normal conjunctiva, PERRL and EOM's grossly intact NECK: supple, no nuchal rigidity, no adenopathy, non-tender LUNGS: Clear to auscultation. Normal chest wall mechanics HEART: no murmurs, S1 normal and S2 normal ABDOMEN: abdomen soft, non-tender, normo-active bowel sounds, no masses, no rebound or guarding. UPPER EXTREMITIES: upper extremities are grossly normal. LOWER EXTREMITIES: No pitting edema. NEURO EXAM: AOx3, cranial nerves II-XII grossly intact, normal speech Hospital Course H&P 87M with a PMHX of paraplegia s/p fall 15yrs ago, COPD (not on oxygen at home), CAD with Stent & Pacemaker placement, chronic indwelling cronin and ileostomy p/ w AMS x 24 hours. In the ER pt received Rocephin and Vanco and has regained his baseline. and sister in law are present in the room. Per family and patient yesterday evening he starting acting confused. He didn't sleep and wasn't able to answer questions appropriately and had no idea where he was. He even had verbalized that he was going to stand up despite being paraplegic for 15 years. Pt is currently on oxygen and does not use oxygen at home. Prior to yesterday evening pt was well, denies any fever, denies cough, denies any skin lesions. Course 87 yo M paraplegic with h/o COPD, CAD with a chronic indwelling catheter p/w Acute encephalopathy in the setting of UTI UTI: likely catheter associated infection from chronic cronin use afebrile placed on Rocephin, Vancomyci developed leukocytosis on day 2 of admission but resolved by discharge Urine cx showed Meg neg bacteruria, however cx showed multiple organisms at high levels Clinically improving Acute Encephalopathy: in the setting of UTI Altered mental status resolved with UTI antibiotic treatment Patient was at baseline mental status by discharge CAD c/w Coreg 3.125mg BID c/w digoxin 0.125mg daily. c/w Imdur c/w Lipitor 50mg daily. COPD: stable, continue Symbicort, Albuterol nebs GERD: Continue PPI Depression: Continue Lexapro DVT Prophylaxis: Heparin Total Time Spent: Less than 30 minutes This includes examination of the patient, discharge planning, medication reconciliation, and communication with other providers. Discharge Instructions Please refer to the electronic Patient Visit Report (Discharge Instructions) for additional information. Assessment/Plan Resident Physician Supervision Note: I was present with Dr. Rahman during the history and exam. I discussed the case with the resident and agree with the findings and plan as documented in the note. Any exceptions or clarifications are listed here. Pt seen and examined at bedside without complaint. Reports no abdominal pain, nausea, TALAVERA, fever/flushing, SOB/cough. "Urine's cleared up" Per microbiology, no appreciable C/S available from original sample as multiple organisms in high count. Repeat UA and culture taken. As patient has responded well to present course of medication, will empirically transition to similar PO coverage and discharge to close outpatient follow up with repeat culture pending in hospital. Resident Tracking Resident Involvement: Resident Care Provided Care Provided: Adult [facility] Medicine
== END 2017-07-11 16:30 | disposition home health service (06) ==
LOC: EDBD 14:51 → C.EDB 14:52 → C.MED 20:16 → ENRESERV 20:33
PROVIDERS: ADMIT Hospitalist; ATTEND Family Medicine
DX: N39.0 Urinary tract infection, site not specified (principal); G93.40 Encephalopathy, unspecified; G82.20 Paraplegia, unspecified; K44.9 Diaphragmatic hernia without obstruction or gangrene; J44.9 Chronic obstructive pulmonary disease, unspecified; I25.10 Atherosclerotic heart disease of native coronary artery without angina pectoris; K21.9 Gastro-esophageal reflux disease without esophagitis; F32.9 Major depressive disorder, single episode, unspecified; E78.5 Hyperlipidemia, unspecified; Z95.0 Presence of cardiac pacemaker; Z98.61 Coronary angioplasty status; Z88.2 Allergy status to sulfonamides; Z82.49 Family history of ischemic heart disease and other diseases of the circulatory system; Z82.3 Family history of stroke

== ENCOUNTER → 2017-07-24 | Outpatient (CLI) | payer OTHER ==
[~2017-07-24] MED LIST changes: +ACET-1256 PO; +AMOX500C3 PO; -ANSHCCR/ TD; +AZIT-57 PO; +CEFD300C3 PO; -CRAN1CAP PO; +CRAN1CAP11 PO; +CRANCAP4 PO; -GFNSR600 PO; +GUAI1TAB55 PO; +GUAI1TAB75 PO; +HYDR2.5O TOP; -KFL250 PO; +MELA1TAB5 PO; -MELA3TAB PO; +PRED10TA PO; +SALI-3 NAE; -SALI1SPR3 NAE; +TIOT1SPR INH; +XRL15 PO; +[UNRECOGNIZED DRUG - CODE] TP
== END | disposition home or self-care (01) ==
LOC: C.LABSPEC 14:42
PROVIDERS: ATTEND Internal Medicine
DX: N39.0 Urinary tract infection, site not specified (principal)

== ENCOUNTER 2017-07-25 02:30 | Inpatient (IN) | payer OTHER ==
[~2017-07-25] VITALS: Ht 170.2 cm; Wt 59.3 kg
[2017-07-25] VITALS (13 sets, daily range): BP systolic 104–144; BP diastolic 55–78; PULSE 67–88; TEMP 36.6–37; O2SAT 88–100; Ht 170.2 cm; Wt 59.3 kg
[~2017-07-25 02:30] MED LIST changes: -AMOX500C3 PO; -AZIT-57 PO; -CRAN1CAP11 PO; -GUAI1TAB55 PO; -HYDR2.5O TOP; -MELA1TAB5 PO; -PRED10TA PO; -TIOT1SPR INH; -XRL15 PO
[2017-07-25] MEDS ORDERED: ALBUT/IPRATROP 3MG/0.5MG NEB 3 ML VIAL INH ONE (02:45)
--- NOTE | 2017-07-25 02:58 | EMERGENCY ROOM VISIT NOTE ---
History Report prepared by Miller: Nitish Parkinson Under the Supervision of: Dr. Raul Lizama M.D. First contact with patient: 02:33 Chief Complaint: RESPIRATORY PROBLEMS Stated Complaint: RESPIRATORY PROBLEMS History of Present Illness The patient is an 87 year old male who presents to the Emergency Room with complaints of constant SOB beginning tonight. The patient states that he has a history of COPD which is likely causing his SOB symptoms. He notes that he does not use oxygen at home, but was given oxygen by EMS en route to the emergency department tonight. Per EMS, the patient was breathing at 75% on room air. She reports that the patient was given solumedrol and 4L of oxygen via a DuoNeb which caused his oxygen saturation to increase to 96-98%. She states that the patient is paralyzed from the waist down. The patient was admitted three weeks ago for a UTI. Source of History: patient, EMS Onset: tonight Position: other (lungs) Symptom Intensity: 75% on room air Quality: other (SOB) Timing: constant Review of Systems See HPI for pertinent positives & negatives. A total of 10 systems reviewed and were otherwise negative. Past Medical & Surgical Medical Problems: (1) Back Surgery (2) Benign hypertension (3) Colostomy (4) COPD (5) COPD exacerbation (6) coronary artery disease with stent (7) Family history of cancer (8) Hyperlipidemia (9) Ileostomy (10) Paraplegia Family History Cancer Heart disease Stroke Social History Smoking Status: Never Smoker Alcohol Use: none Drug Use: none Marital Status: Housing Status: lives with family Occupation Status: retired Current/Historical Medications Scheduled Amoxicillin (Amoxil), 500 MG PO BID Atorvastatin (Lipitor), 40 MG PO DAILY Budesonide/Formoterol Fumarate (Symbicort 160/4.5 Inhaler ), 1 PUFFS INH BID Carvedilol (Coreg), 3.125 MG PO BIDM Cholecalciferol (Vitamin D 1000 Unit), 1,000 INTER.UNIT PO DAILY Cranberry-Vitamin C (Cranberry/Vitamin C), 1 TAB PO DAILY Digoxin (Digox), 1 TAB PO DAILY Escitalopram (Lexapro), 10 MG PO DAILY Fluticasone Propionate (Nasal) (Flonase Allergy Relief), 1 SPRAY BARRY DAILY Isosorbide Mononitrate Ext Rel (Imdur Ext Rel), 30 MG PO QAM Lactobacillus (Lactinex), 1 TABLET PO BID Magnesium Oxide (Mag-Ox), 400 MG PO BID Melatonin (Kp Melatonin), 3 MG PO HS Menthol-Zinc Oxide (Moisture Barrier 0.44-20.6 %), 1 APPLN TP BID Multiple Vitamin (Multivitamin), 1 TAB PO DAILY Multivitamins/Minerals (Cerovite Advanced Formula), 1 TAB PO QAM Omeprazole (Prilosec), 40 MG PO DAILY Oxybutynin Chloride (Oxybutynin Chloride), 1 TAB PO QID Scheduled PRN Acetaminophen (Tylenol), 1-2 TAB PO Q6 PRN for Pain or Fever Albuterol Sulf (Proventil 0.083% 2.5MG/3ML), 2.5 MG INH Q6H PRN for Shortness of Breath Albuterol Sulfate (Proair Respiclick), 1-2 PUFFS INH Q4 PRN for Shortness of Breath Guaifenesin Ext Rel (Mucinex Ext Rel), 600 MG PO Q12 PRN for CONGESTION Hydrocortisone (Topical) (Hydrocortisone), 1 APPLN TOP DIRECTED PRN for SKIN IRRITATION Metaxalone (Skelaxin), 800 MG PO Q8 PRN for PRN Mupirocin 2% (Bactroban 2%), 1 APPLN EXT TID PRN for Itching Saline (Saline Nasal [place]), 1 SPRAY BARRY DAILY PRN for DRYNESS Allergies Coded Allergies: Food (Verified Allergy, Severe, ANAPHYLAXIS WITH RADISHES/ DIFFICULTY BREATHING HORSERADISH, 07/25/17) NSAIDs (Verified Allergy, Severe, internal bleeding, 07/25/17) Banana (Verified Allergy, Mild, 07/25/17) Sulfa Antibiotics (Verified Allergy, Unknown, Unknown, 07/25/17) Physical Exam Vital Signs Date Time Temp Pulse Resp B/P (MAP) Pulse Ox O2 Delivery O2 Flow Rate FiO2 07/25/17 05:03 77 18 126/86 100 BiPAP 07/25/17 04:07 69 99 30 07/25/17 04:00 67 20 144/71 98 BiPAP 07/25/17 03:30 72 24 135/67 100 Mask 8.0 07/25/17 02:58 68 24 96 Room Air 07/25/17 02:54 68 07/25/17 02:46 92 Room Air 07/25/17 02:44 36.8 70 24 136/74 92 Room Air Physical Exam GENERAL: Patient unwell appearing and in moderate distress, elderly. EYES: No scleral icterus, unremarkable pupils. ENT: Mucous membranes moist, no nasal congestion. NECK: No masses appreciated, no meningismus, trachea is midline. RESPIRATORY: Dyspneic and tachypneic. Clear to auscultation and equal bilaterally. Diffuse inspiratory/expiratory wheezes, no rhonchi. CARDIOVASCULAR: Regular rate and rhythm. No murmurs, rubs, gallops appreciated. GASTROINTESTINAL: Abdomen soft, nontender, no peritonitis. Bowel sounds positive. No masses appreciated, ostomy in right abdomen, cronin catheter in place. BACK: No midline tenderness, no CVA tenderness EXTREMITIES: Normal motion all extremities, no cyanosis, no edema. NEUROLOGIC: Alert and oriented, paralyzed chest down (chronic), cranial nerves grossly intact. SKIN: No rash, no jaundice, no diaphoresis. Medical Decision & Procedures ER Provider Diagnostic Interpretation: Radiology results and stated below per my review and interpretation: 1 VIEW CHEST X-RAY: Severe emphysematous changes similar to previous. ICD/pacemaker in left upper chest. No infiltrate, effusion, pneumothorax. Laboratory Results 07/25/17 02:57 Red Blood Count 5.22, Mean Corpuscular Volume 88.9, Mean Corpuscular Hemoglobin 31.0, Mean Corpuscular Hemoglobin Concent 34.9, Mean Platelet Volume 9.8, Neutrophils (%) (Auto) 74.1, Lymphocytes (%) (Auto) 11.8, Monocytes (%) (Auto) 11.5, Eosinophils (%) (Auto) 2.1, Basophils (%) (Auto) 0.2, Neutrophils # (Auto ) 6.55, Lymphocytes # (Auto) 1.04, Monocytes # (Auto) 1.02, Eosinophils # (Auto ) 0.19, Basophils # (Auto) 0.02 07/25/17 02:57 Test 07/25/17 02:57 07/25/17 02:59 07/25/17 04:30 White Blood Count 8.85 K/uL (4.8-10.8) Red Blood Count 5.22 M/uL (4.7-6.1) Hemoglobin 16.2 g/dL (14.0-18.0) Hematocrit 46.4 % (42-52) Mean Corpuscular Volume 88.9 fL (80-100) Mean Corpuscular Hemoglobin 31.0 pg (25-34) Mean Corpuscular Hemoglobin Concent 34.9 g/dl (32-36) Platelet Count 184 K/uL (130-400) Mean Platelet Volume 9.8 fL (7.4-10.4) Neutrophils (%) (Auto) 74.1 % Lymphocytes (%) (Auto) 11.8 % Monocytes (%) (Auto) 11.5 % Eosinophils (%) (Auto) 2.1 % Basophils (%) (Auto) 0.2 % Neutrophils # (Auto) 6.55 K/uL (1.4-6.5) Lymphocytes # (Auto) 1.04 K/uL (1.2-3.4) Monocytes # (Auto) 1.02 K/uL (0.11-0.59) Eosinophils # (Auto) 0.19 K/uL (0-0.5) Basophils # (Auto) 0.02 K/uL (0-0.2) RDW Standard Deviation 43.3 fL (36.4-46.3) RDW Coefficient of Variation 13.3 % (11.5-14.5) Immature Granulocyte % (Auto) 0.3 % Immature Granulocyte # (Auto) 0.03 K/uL (0.00-0.02) Prothrombin Time 10.7 SECONDS (9.0-12.0) Prothromb Time International Ratio 1.0 (0.9-1.1) Venous Blood pH 7.24 (7.36-7.41) Venous Blood Partial Pressure CO2 69 mmHg (38.0-50.0) Venous Blood Partial Pressure O2 18 mmHg Venous Blood HCO3 29 mmol/L Venous Blood Oxygen Saturation < 60.0 % Venous Blood Base Excess -0.8 mEq/L Anion Gap 1.0 mmol/L (3-11) Est Creatinine Clear Calc Drug Dose 36.7 ml/min Estimated GFR () 62.8 Estimated GFR (Non- 54.2 BUN/Creatinine Ratio 18.3 (10-20) Calcium Level 9.2 mg/dl (8.5-10.1) Magnesium Level 2.0 mg/dl (1.8-2.4) Troponin I 0.017 ng/ml (0-0.045) Bedside Lactic Acid Venous 0.64 mmol/L (0.90-1.70) Urine Color YELLOW Urine Appearance CLEAR (CLEAR) Urine pH 5.5 (4.5-7.5) Urine Specific [place] 1.014 (1.000-1.030) Urine Protein TRACE (NEG) Urine Glucose (UA) NEG (NEG) Urine Ketones NEG (NEG) Urine Occult Blood 1+ (NEG) Urine Nitrite POS (NEG) Urine Bilirubin NEG (NEG) Urine Urobilinogen NEG (NEG) Urine Leukocyte Esterase LARGE (NEG) Urine WBC (Auto) >30 /hpf (0-5) Urine RBC (Auto) 0-4 /hpf (0-4) Urine Hyaline Casts (Auto) 1-5 /lpf (0-5) Urine Epithelial Cells (Auto) 0-5 /lpf (0-5) Urine Bacteria (Auto) NEG (NEG) Laboratory results as reviewed by me. Medications Administered Medications (Trade) Dose Ordered Sig/Eloisa Route Start Time Stop Time Status Last Admin Dose Admin Albuterol/ Ipratropium (Duoneb) 12 ml ONE ONCE INH 07/25/17 02:45 07/25/17 02:46 DC 07/25/17 02:58 12 ML Levofloxacin (Levaquin / D5W) 750 mg NOW STAT IV 07/25/17 03:35 07/25/17 03:36 DC 07/25/17 03:44 750 MG Sodium Chloride 500 ml @ 999 mls/hr Q31M STAT IV 07/25/17 03:37 07/25/17 04:07 DC 07/25/17 03:44 999 MLS/HR ECG Per My Interpretation Indication: SOB/dyspnea Rate (beats per minute): 68 Rhythm: sinus rhythm Findings: 1st degree AV block, other (Nonspecific lateral ST abnormalities) Comparison ECG Date: 05/16/2017 Change: no significant change ED Course 0233: The patient was evaluated in room B9. A complete history and physical exam was performed. 0324: I reevaluated and updated the patient. His is at bedside. She notes that they have been trying to fix the patient's urine infection for the last two weeks. She states that the patient was recently placed on a new antibiotics but is unsure of the name. 0330: Upon reevaluation, the patient is stable. Discussed results and treatment plan with the patient. He verbalized understanding and agreement with the treatment plan. Discussed the patient's case with [] - Hospitalist, []. The patient will be evaluated for further management. Medical Decision Differential: Infectious, Reactive Airway Disease, Pneumonia, Pneumothorax, COPD , CHF, ACS, Pulmonary Embolism, MSK, GI, Dissection, amongst other etiologies entertained. 87 yr old male with recent brief obs for UTI due to indwelling follow returns tonight for acute shortness of breath, wheezing and hypoxia. Exam very much consistent with COPD/emphysema exacerbation and has moderate hypoxia on RA. Known lung disease causing some issues for patient recently. He has no leg swelling nor hallmarks of PE and I feel that COPD exacerbation more likely than PE, and given other issues will hold on CT PE at this time. With return of VBG and continued wheezing despite neb I switched him over to BiPAP with vast improvement in his breathing and comfort. Sats doing well and patient seems more awake/interactive as well. Given empiric IV Levaquin though no clear evidence infiltrate on CXR. Steroids already given by EMS. Multiple rechecks and seems to be improving significant while here in ED. No clear evidence CHF, ACS, Dissection, PE. Medication Reconcilliation Current Medication List: was personally reviewed by me Blood Pressure Screening Patient's blood pressure: Elevated blood pressure Blood pressure disposition: Elevated BP felt to be situational Consults Time Called: [phone] Consulting Physician: Dr. Luna - [place], [facility] Returned Call: [phone] Discussed the patient's case. The patient will be evaluated for further treatment and disposition. Impression Primary Impression: Acute hypercapnic respiratory failure Additional Impression: COPD exacerbation Critical Care I have personally spent greater than 35 minutes of critical care time in the direct management of this patient. This was a life/limb threatening event. This includes time spent evaluating patient, direct bedside care, chart review, placing orders, interpretation of diagnostic studies, discussion with consultants, patient, and family members, as well as other required patient management activities. This 35 minutes is in excess of all separately billable procedures. Scribe Attestation The scribe's documentation has been prepared under my direction and personally reviewed by me in its entirety. I confirm that the note above accurately reflects all work, treatment, procedures, and medical decision making performed by me. Departure Information Dispostion Being Evaluated By Hospitalist Iam Escobedo M.D. (PCP) Patient Instructions My [facility] Problem Qualifiers
[2017-07-25 03:08] LABS: BASO % 0.2 %; BASO ABS # 0.02 K/uL (0-0.2); EOS % 2.1 %; EOS ABS # 0.19 K/uL (0-0.5); HEMATOCRIT 46.4 % (42-52); HEMOGLOBIN 16.2 g/dL (14.0-18.0); IG# 0.03 K/uL (0.00-0.02); LYMPH % 11.8 %; LYMPH ABS # 1.04 K/uL (1.2-3.4); MEAN CELL VOLUME 88.9 fL (80-100); MEAN CORPUSCULAR HGB CONC 34.9 g/dl (32-36); MEAN PLATELET VOLUME 9.8 fL (7.4-10.4); MONO % 11.5 %; MONO ABS # 1.02 K/uL (0.11-0.59); NEUT % 74.1 %; NEUT ABS # 6.55 K/uL (1.4-6.5); PLATELET COUNT 184 K/uL (130-400); RED CELL DISTRIBUTION WIDTH CV 13.3 % (11.5-14.5); RED CELL DISTRIBUTION WIDTH SD 43.3 fL (36.4-46.3); WHITE BLOOD COUNT 8.85 K/uL (4.8-10.8)
[2017-07-25 03:28] LABS: CALCIUM 9.2 mg/dl (8.5-10.1); CREATININE 1.19 mg/dl (0.60-1.40)
[2017-07-25] MEDS ORDERED: AMOX500C3 PO (03:35)
[2017-07-25] MEDS ORDERED: HYDR2.5O TOP (03:35)
[2017-07-25] MEDS ORDERED: GUAI1TAB55 PO (03:35)
[2017-07-25] MEDS ORDERED: LEVAQUIN 750MG / 150ML D5W IV STA (03:35)
[2017-07-25] MEDS ORDERED: CRAN1CAP11 PO (03:35)
[2017-07-25] MEDS ORDERED: MELA1TAB5 PO (03:35)
[2017-07-25] MEDS ORDERED: SODIUM CHLORIDE 0.9% 500ML 500 ML IV STA (03:37)
[2017-07-25] MEDS ORDERED: MAGNESIUM HYDROXIDE SUSP 30 ML UDC PO PRN (05:45)
[2017-07-25] MEDS ORDERED: ACETAMINOPHEN 325 MG TAB PO PRN (05:45)
[2017-07-25] MEDS ORDERED: ALUMINUM/MAGNESIUM/SIMETH (MAALOX MAX) 30 ML UDC PO PRN (05:45)
[2017-07-25] MEDS ORDERED: POLYETHYLENE (MIRALAX) 17 GM PACK PO PRN (05:45)
[2017-07-25] MEDS ORDERED: ONDANSETRON INJ 2 MG/ML 2 ML VIAL IV PRN (05:45)
[2017-07-25] MEDS ORDERED: SODIUM CHLORIDE 0.65% NA SOLN 45 ML (OCEAN) NAE PRN (06:00)
[2017-07-25] MEDS ORDERED: LEVOFLOXACIN CONSULT ACTIVE PRN (06:30)
--- NOTE | 2017-07-25 06:44 | History and Physical ---
History & Physical Date & Time of Service: Jul 25, 2017 at 06:33 Chief Complaint: Copd Exacerbation Primary Care Physician: Iam Yang M.D. History of Present Illness Source: patient 87 yo M paraplegic with h/o COPD, CAD with a chronic indwelling catheter presented with worsening shortness of breath He says that his symptoms have been ongoing for the past 3-4 days. He has been feeling short of breath at rest and has noticed himself audibly wheezing. He has been feeling weak otherwise and has had some mild diarrhea. He denies any chest pain, cough, fevers or chills. Per records he was breathing 75% at room air and he was given solumedrol and 4L oxygen and a duoneb which caused his oxygen saturation to increase to 96-98%. He has used his inhalers at home but these have not helped his symptoms. He notes he has COPD and has been on inhalers for this. He has never smoked. He does not have a lung doctor. He does not use oxygen at home. He is paralyzed from the waist down and was admitted here 3 weeks ago for a UTI. Past Medical/Surgical History Medical Problems: (1) Back Surgery (2) Benign hypertension (3) Bronchitis (4) C. difficile diarrhea (5) Catheter-associated urinary tract infection (6) Change in mental status (7) Chronic indwelling Cronin catheter (8) Colostomy (9) Confusion (10) COPD (11) COPD exacerbation (12) coronary artery disease with stent (13) Dehydration (14) Fall (15) Family history of cancer (16) Fever (17) Foot contusion (18) Hyperlipidemia (19) Hypoxia (20) Ileostomy (21) Left ankle sprain (22) Lightheadedness (23) Malfunction of Cronin catheter (24) Nausea (25) Paraplegia (26) Paresthesia (27) Pressure ulcer (28) Pressure ulcer (29) Pulmonary edema (30) Sepsis (31) Sepsis (32) Transient hypotension (33) Urinary retention (34) Urinary tract infection (35) UTI (lower urinary tract infection) (36) UTI (urinary tract infection) (37) UTI (urinary tract infection) (38) UTI (urinary tract infection) (39) Weakness Family History Cancer Heart disease Stroke Social History Smoking Status: Never Smoker Alcohol Use: none Drug Use: none Marital Status: Housing status: lives with family Occupational Status: retired Immunizations History of Influenza Vaccine: No History of Tetanus Vaccine?: Unknown Tetanus Immunization Date: Jan 22, 2009 History of Pneumococcal: Yes Pneumococcal Date: Mar 27, 2011 History of Hepatitis B Vaccine: Unknown Allergies Coded Allergies: Food (Verified Allergy, Severe, ANAPHYLAXIS WITH RADISHES/ DIFFICULTY BREATHING HORSERADISH, 07/25/17) NSAIDs (Verified Allergy, Severe, internal bleeding, 07/25/17) Banana (Verified Allergy, Mild, 07/25/17) Sulfa Antibiotics (Verified Allergy, Unknown, Unknown, 07/25/17) Home Medications Scheduled Amoxicillin (Amoxil), 500 MG PO BID Atorvastatin (Lipitor), 40 MG PO DAILY Budesonide/Formoterol Fumarate (Symbicort 160/4.5 Inhaler ), 1 PUFFS INH BID Carvedilol (Coreg), 3.125 MG PO BIDM Cholecalciferol (Vitamin D 1000 Unit), 1,000 INTER.UNIT PO DAILY Cranberry-Vitamin C (Cranberry/Vitamin C), 1 TAB PO DAILY Digoxin (Digox), 1 TAB PO DAILY Escitalopram (Lexapro), 10 MG PO DAILY Fluticasone Propionate (Nasal) (Flonase Allergy Relief), 1 SPRAY BARRY DAILY Isosorbide Mononitrate Ext Rel (Imdur Ext Rel), 30 MG PO QAM Lactobacillus (Lactinex), 1 TABLET PO BID Magnesium Oxide (Mag-Ox), 400 MG PO BID Melatonin (Kp Melatonin), 3 MG PO HS Menthol-Zinc Oxide (Moisture Barrier 0.44-20.6 %), 1 APPLN TP BID Multiple Vitamin (Multivitamin), 1 TAB PO DAILY Multivitamins/Minerals (Cerovite Advanced Formula), 1 TAB PO QAM Omeprazole (Prilosec), 40 MG PO DAILY Oxybutynin Chloride (Oxybutynin Chloride), 1 TAB PO QID Scheduled PRN Acetaminophen (Tylenol), 1-2 TAB PO Q6 PRN for Pain or Fever Albuterol Sulf (Proventil 0.083% 2.5MG/3ML), 2.5 MG INH Q6H PRN for Shortness of Breath Albuterol Sulfate (Proair Respiclick), 1-2 PUFFS INH Q4 PRN for Shortness of Breath Guaifenesin Ext Rel (Mucinex Ext Rel), 600 MG PO Q12 PRN for CONGESTION Hydrocortisone (Topical) (Hydrocortisone), 1 APPLN TOP DIRECTED PRN for SKIN IRRITATION Metaxalone (Skelaxin), 800 MG PO Q8 PRN for PRN Mupirocin 2% (Bactroban 2%), 1 APPLN EXT TID PRN for Itching Saline (Saline Nasal [place]), 1 SPRAY BARRY DAILY PRN for DRYNESS Review of Systems Constitutional: + weakness, + fatigue, No fever, No chills Respiratory: + wheezing, + shortness of breath, + dyspnea at rest, No cough, No sputum, No hemoptysis Cardiovascular: No chest pain, No edema, No palpitations Abdomen: + diarrhea, No pain, No nausea, No vomiting, No constipation Musculoskeletal: No joint pain, No muscle pain, No swelling Genitourinary - Male: No hematuria, No dysuria, No urinary frequency Neurologic: + paralysis, + weakness Integumentary: No rash, No itch, No new/changing skin lesions Physical Exam Vital Signs Date Time Temp Pulse Resp B/P (MAP) Pulse Ox O2 Delivery O2 Flow Rate FiO2 07/25/17 05:57 74 20 130/74 98 Nasal Cannula 4.0 07/25/17 05:03 77 18 126/86 100 BiPAP 07/25/17 04:07 69 99 30 07/25/17 04:00 67 20 144/71 98 BiPAP 07/25/17 03:30 72 24 135/67 100 Mask 8.0 07/25/17 02:58 68 24 96 Room Air 07/25/17 02:54 68 07/25/17 02:46 92 Room Air 07/25/17 02:44 36.8 70 24 136/74 92 Room Air General Appearance: WD/WN, no apparent distress Head: normocephalic, atraumatic ENT: hearing grossly normal, pharynx normal Neck: supple, no adenopathy, no JVD, no carotid bruits Respiratory/Chest: chest non-tender, no respiratory distress, no accessory muscle use, + wheezing (bilateral wheezing in both lungs, no crackles) Cardiovascular: regular rate, rhythm, no murmur, normal peripheral pulses Abdomen/GI: normal bowel sounds, non tender, soft, + pertinent finding (ostomy in R abdomen) Extremities/Musculoskelatal: normal inspection, normal capillary refill, no pedal edema, + pertinent finding (paralyzed from waist down) Neurologic/Psych: alert, normal mood/affect, oriented x 3, + pertinent finding (paralyzed from the waist down) Skin: normal color, warm/dry, no rash Diagnostics Laboratory Results Results Past 24 Hours Test 07/25/17 02:57 07/25/17 02:59 07/25/17 04:30 Range/Units White Blood Count 8.85 4.8-10.8 K/uL Red Blood Count 5.22 4.7-6.1 M/uL Hemoglobin 16.2 14.0-18.0 g/dL Hematocrit 46.4 42-52 % Mean Corpuscular Volume 88.9 80-100 fL Mean Corpuscular Hemoglobin 31.0 25-34 pg Mean Corpuscular Hemoglobin Concent 34.9 32-36 g/dl Platelet Count 184 130-400 K/uL Mean Platelet Volume 9.8 7.4-10.4 fL Neutrophils (%) (Auto) 74.1 % Lymphocytes (%) (Auto) 11.8 % Monocytes (%) (Auto) 11.5 % Eosinophils (%) (Auto) 2.1 % Basophils (%) (Auto) 0.2 % Neutrophils # (Auto) 6.55 1.4-6.5 K/uL Lymphocytes # (Auto) 1.04 1.2-3.4 K/uL Monocytes # (Auto) 1.02 0.11-0.59 K/uL Eosinophils # (Auto) 0.19 0-0.5 K/uL Basophils # (Auto) 0.02 0-0.2 K/uL RDW Standard Deviation 43.3 36.4-46.3 fL RDW Coefficient of Variation 13.3 11.5-14.5 % Immature Granulocyte % (Auto) 0.3 % Immature Granulocyte # (Auto) 0.03 0.00-0.02 K/uL Prothrombin Time 10.7 9.0-12.0 SECONDS Prothromb Time International Ratio 1.0 0.9-1.1 Venous Blood pH 7.24 7.36-7.41 Venous Blood Partial Pressure CO2 69 38.0-50.0 mmHg Venous Blood Partial Pressure O2 18 mmHg Venous Blood HCO3 29 mmol/L Venous Blood Oxygen Saturation < 60.0 % Venous Blood Base Excess -0.8 mEq/L Sodium Level 124 136-145 mmol/L Potassium Level 5.0 3.5-5.1 mmol/L Chloride Level 92 98-107 mmol/L Carbon Dioxide Level 31 21-32 mmol/L Anion Gap 1.0 3-11 mmol/L Blood Urea Nitrogen 22 7-18 mg/dl Creatinine 1.19 0.60-1.40 mg/dl Est Creatinine Clear Calc Drug Dose 36.7 ml/min Estimated GFR () 62.8 Estimated GFR (Non- 54.2 BUN/Creatinine Ratio 18.3 10-20 Random Glucose 106 70-99 mg/dl Calcium Level 9.2 8.5-10.1 mg/dl Magnesium Level 2.0 1.8-2.4 mg/dl Troponin I 0.017 0-0.045 ng/ml Bedside Lactic Acid Venous 0.64 0.90-1.70 mmol/L Urine Color YELLOW Urine Appearance CLEAR CLEAR Urine pH 5.5 4.5-7.5 Urine Specific [place] 1.014 1.000-1.030 Urine Protein TRACE NEG Urine Glucose (UA) NEG NEG Urine Ketones NEG NEG Urine Occult Blood 1+ NEG Urine Nitrite POS NEG Urine Bilirubin NEG NEG Urine Urobilinogen NEG NEG Urine Leukocyte Esterase LARGE NEG Urine WBC (Auto) >30 0-5 /hpf Urine RBC (Auto) 0-4 0-4 /hpf Urine Hyaline Casts (Auto) 1-5 0-5 /lpf Urine Epithelial Cells (Auto) 0-5 0-5 /lpf Urine Bacteria (Auto) NEG NEG Microbiology Results 07/25/17 Blood Culture, Received Pending 07/25/17 Blood Culture, Received Pending 07/25/17 Urine Culture, Received Pending Diagnostic Radiology CXR= hyperinflated lungs, no focal consolidations, pacemaker in place, and spinal fusion EKG EKG 1st degree AV block Impression Assessment and Plan 87 yo M paraplegic with h/o COPD, CAD with a chronic indwelling catheter presented with worsening shortness of breath and was found to have a COPD exacerbation COPD exacerbation (not on home oxygen) - O2 via nasal cannula w/ maintain sats between 88-92% - duonbed qid - methylprednisolone 60mg IV daily - levaquin 750mg IV every 2nd day, already received 1 dose in the ED on 2017 - incentive spirometer Coronary artery disease - continue coreg, digoxin, imdur and lipitor GERD - Continue PPI Depression - Continue Lexapro Hx of spinal trauma - patient paralyzed from the waist down - indwelling cronin - continue oxybutynin daily DVT Prophylaxis - lovenox 40mg subq DNR Resident Physician Supervision Note: I was present with Dr. Page during the history and exam. I discussed the case with the resident and agree with the findings and plan as documented in the note. Any exceptions or clarifications are listed here: 87 y/o M Hx CAD, paraplegia with chronic Cronin, COPD. Presents wit progressive SOB - no evidence of PNM - likely COPD exacerbation. OE Oriented when awake - pt somnolent at time of my evaluation S1,2 R poor air movement - end expiratory wheeze NT, ND No CC P: Will treat for COPD exacerbation - 02 protocol, nebs, abx, steroids No evidence of ACS at present UA is + - we are treating with Levaquin regardless for COPD - can adjust based on Cx results Documented By: Sameer Luna Resuscitation Status VTE Prophylaxis Will order VTE Prophylaxis: Yes
--- NOTE | 2017-07-25 06:46 | Family Medicine Progress Note ---
Progress Note Date of Service Jul 25, 2017. Subjective Pt evaluation today including: conversation w/ patient, conversation w/ family , chart review, lab review Pt was seen and examined at bedside. States he is doing well. Is wearing O2. There are no acute issues. Talked to pt's , she states that the SOB started suddenly, yesterday and the patient was having difficulty breathing as he went to bed which prompted his to bring him to the ER. Per , pt has a longstanding chronic wet cough that runs in the family (pt's dad has it), the cough isn't distressing to the or pt. 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 Constitutional: No fever, No chills, No sweats ENT: No hearing loss Respiratory: + cough, + shortness of breath, No sputum, No wheezing Cardiovascular: No chest pain Abdomen: No pain, No nausea, No vomiting, No diarrhea Musculoskeletal: No joint pain Male : No dysuria Objective Physical Exam General Appearance: WD/WN, no apparent distress Eyes: normal inspection, PERRL, EOMI ENT: normal ENT inspection Neck: supple Respiratory/Chest: chest non-tender, lungs clear, no respiratory distress, no accessory muscle use, + pertinent finding (decreased breath sounds in all lung tolbert and end expiratory wheezing bilaterally at the lung bases. ) Cardiovascular: regular rate, rhythm, no edema, no gallop, no JVD, no murmur, + pertinent finding (pacemaker subq) Abdomen: normal bowel sounds, non tender, soft, no organomegaly, + pertinent finding (ostomy draining fecal matter) Extremities: + pertinent finding (pt is paraplegic and unable to move LE to command. ) Neurologic/Psychiatric: alert, normal mood/affect, + motor weakness (paralysis of LE bilaterally. ), + pertinent finding (oriented to person, place ([place], [facility]), but not time (year- pt states it's 2018 and doesnt know the month - july,) Pt does know birthday. ) Skin: normal color Lymphatic: no adenopathy Assessment and Plan 87M with a PMHX of paraplegia s/p fall 15yrs ago, COPD (not on oxygen at home), CAD with Stent & Pacemaker placement, chronic indwelling cronin and ileostomy p/ w acute onset SOB the evening prior. 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 Patient was also found to have a UTI. Pt was started on IV steroids and Levofloxacin. Pt showed clinical improved on hospital Day #1 according to his . A STAT D- Dimer was ordered to rule out PE. D Dimer result pending. Acute Hypoxic Respiratory Failure 2/2 COPD exacerbation (not on home oxygen) vs PE Pt denies any type of chest pain. O2 via nasal cannula w/ maintain sats between 88-92% duonbed qid methylprednisolone 60mg IV daily levaquin 750mg IV every 2nd day, already received 1 dose in the ED on 07/25/2017 incentive spirometer. Wean Oxygen at tolerated. D-Dimer ordered STAT, results pending. UTI c/w Levofloxacin Await Urine and Blood Cultures. Coronary artery disease w Pacemaker Placement c/w Coreg 3.125mg BID c/w digoxin 0.125mg daily. c/w Imdur c/w Lipitor 50mg daily. GERD Continue PPI Depression Continue Lexapro Hx of spinal trauma patient paralyzed from the waist down indwelling cronin continue oxybutynin daily DVT Prophylaxis Lovenox 40mg subq DNR Resident Involvement: Resident Care Provided Care Provided: Adult Hospital Medicine
--- NOTE | 2017-07-25 07:21 | DIAGNOSTIC IMAGING REPORT ---
SINGLE VIEW CHEST CLINICAL HISTORY: Fever. FINDINGS: 2 AP, portable, upright chest radiographs are compared to study dated 07/08/2017. Correlation is made with chest CT dated 09/30/2012. The examination is degraded by portable technique and patient rotation. A 2-lead AICD is unchanged in position and partially obscures the left upper chest. The heart is enlarged and there is atherosclerotic calcification of the thoracic aorta. The pulmonary vasculature is noncongested. Enlargement of the central pulmonary vessels suggests pulmonary artery hypertension. Emphysema and chronic interstitial thickening are similar to previous. There is left basilar scarring/atelectasis. A small hiatal hernia is noted. No airspace consolidation or large pleural effusion is identified. No pneumothorax is seen. The skeletal structures are osteopenic. The bony thorax is grossly intact. Extensive thoracolumbar spinal fusion hardware is in place. IMPRESSION: 1. Cardiomegaly and AICD. There is no radiographic evidence of congestive failure. 2. Emphysema. 3. No airspace consolidation or large pleural effusion is identified. Electronically signed by: Keny Shah M.D. 07/25/2017 7:20 AM Dictated Date/Time: 07/25/2017 7:19 AM
[2017-07-25] MEDS: ALBUT/IPRATROP 3MG/0.5MG NEB 3 ML VIAL INH SCH ×4 (08:30→19:22)
[2017-07-25] MEDS: FLUTICASONE PROPIONATE NA SPR 16 GM BTL NAE SCH (08:36)
[2017-07-25] MEDS: CARVEDILOL 3.125 MG TAB PO SCH ×2 (08:36→17:32)
[2017-07-25] MEDS: ISOSORBIDE MONONITRATE 30 MG TABCR PO SCH (08:37)
[2017-07-25] MEDS: ESCITALOPRAM OXALATE 10 MG TAB PO SCH (08:37)
[2017-07-25] MEDS: OXYBUTYNIN CHLORIDE 5 MG TAB PO SCH ×4 (08:37→20:54)
[2017-07-25] MEDS: LACTOBACILLUS ACIDOPHILUS (FLORANEX) TAB PO SCH ×2 (08:37→20:54)
[2017-07-25] MEDS: PANTOprazole SOD 40 MG TAB PO SCH (08:38)
[2017-07-25] MEDS: MAGNESIUM OXIDE 400 MG TAB PO SCH ×2 (08:38→20:54)
[2017-07-25] MEDS: ATORVASTATIN 20 MG TAB PO SCH (08:38)
[2017-07-25] MEDS: SODIUM CHLORIDE 0.9% 1000ML 1,000 ML IV SCH ×3 (08:42→20:01)
[2017-07-25] MEDS ORDERED: ENOXAPARIN 40 MG/0.4 ML SYR SC SCH (09:00)
[2017-07-25] MEDS ORDERED: METHYLPREDNISOLONE IV 60 MG in SYRINGE 0 ML IV SCH (09:00)
[2017-07-25] MEDS ORDERED: OPTIRAY 320 IV PRN (17:15)
[2017-07-25] MEDS: DIGOXIN 0.125 MG TAB PO SCH (17:32)
--- NOTE | 2017-07-25 18:43 | DIAGNOSTIC IMAGING REPORT ---
CT ANGIOGRAPHY OF THE CHEST, PULMONARY EMBOLUS PROTOCOL CLINICAL HISTORY: Acute onset hypoxia. Positive d-dimer. COPD. COMPARISON STUDY: Chest CT September 30, 2012 and chest radiograph July 25, 2017. TECHNIQUE: Following IV administration of 93 mL of Optiray-320, helical axial images of the chest were obtained utilizing the pulmonary embolus protocol. Maximal intensity projections and sagittal and coronal reformats were viewed on an independent 3D workstation. IV contrast was administered without complication. A dose lowering technique was utilized adhering to the principles of ALARA. CT DOSE: 283.61 mGy.cm FINDINGS: Note is made of moderate thrombus adherent to the wall of the distal left pulmonary artery extending into the left lower lobe pulmonary artery. This is new since exam of September 30, 2012 but likely chronic. There is a small amount of chronic thrombus within the right lower lobe segmental pulmonary artery which is similar to exam of September 30, 2012. No definite acute pulmonary emboli are identified. The heart is moderately enlarged. Extensive coronary artery calcification is present. There is no evidence for thoracic aortic dissection. Note is made of a moderately enlarged subcarinal lymph node that measures 1.8 cm in short axis diameter. A moderate sized hiatal hernia is noted. There are severe emphysema. There is bilateral lower lobe bronchial wall thickening with secretions within multiple segmental bronchi. A lateral lower lobe volume loss is noted. Lungs are suboptimally assessed due to respiratory motion. There is no pneumothorax or pleural effusion. Postoperative findings within the spine are noted with multiple old rib and thoracic spine deformities. Upper abdomen is unremarkable. Thinning of the left ventricular apical wall is unchanged. 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 A left subclavian pacer/AICD is in place. IMPRESSION: 1. Moderate chronic pulmonary emboli within the distal left pulmonary artery extending into the left lower lobe pulmonary artery which is new since CT of September 30, 2012 but appears chronic. Small amount of nonocclusive chronic thrombus within a right lower lobe segmental pulmonary artery which is unchanged. No acute pulmonary emboli identified. 2. Moderately enlarged subcarinal lymph node which is nonspecific. A follow-up chest CT in 6 months is recommended. 3. Severe emphysema. 4. Bilateral lower lobe bronchial wall thickening with moderate secretions. Lower lobe volume loss which favors atelectasis. No evidence for pneumonia. 5. Thinning of the left ventricular apical wall which suggests an old infarct. Electronically signed by: Jerzy Pinto M.D. 07/25/2017 6:42 PM Dictated Date/Time: 07/25/2017 6:25 PM
[2017-07-25] MEDS ORDERED: HEPARIN 25,000 UNIT/500ML D5W 500 ML IV SCH (19:15)
[2017-07-25] MEDS ORDERED: HEPARIN IV LOW DOSE NO BOLUS SCH (19:15)
--- NOTE | 2017-07-25 20:24 | DIAGNOSTIC IMAGING REPORT ---
BILATERAL LOWER EXTREMITY VENOUS DOPPLER CLINICAL HISTORY: PEs, eval for DVT, paraplegic. COMPARISON STUDY: No previous studies for comparison. TECHNIQUE: Sonography of the deep venous system of the bilateral lower extremities was performed. Compression and augmentation were evaluated. FINDINGS: The bilateral common femoral, superficial femoral and popliteal veins were compressible. Augmentation was normal. Flow was shown within the deep calf vessels. IMPRESSION: No evidence of deep venous thrombus within the bilateral lower extremities. Electronically signed by: Jerzy Pinot M.D. 07/25/2017 8:22 PM Dictated Date/Time: 07/25/2017 8:13 PM
[2017-07-26] VITALS (13 sets, daily range): BP systolic 120–152; BP diastolic 59–83; PULSE 61–77; TEMP 36.4–37; O2SAT 92–100
[2017-07-26] MEDS: SODIUM CHLORIDE 0.9% 1000ML 1,000 ML IV SCH ×2 (06:09→22:15)
--- NOTE | 2017-07-26 07:16 | Family Medicine Progress Note ---
Progress Note Date of Service Jul 26, 2017. Subjective Pt evaluation today including: conversation w/ patient Pt was seen and examined at bedside. States he is doing well. Is still wearing O2. No acute overnight events. Pt is eating well. There are no acute issues. Test results and plan of care explained extensively to patient. Constitutional: No fever, No chills, No sweats ENT: No hearing loss Respiratory: + cough (chronic), No sputum, No wheezing Cardiovascular: No chest pain Abdomen: No pain, No nausea, No vomiting, No diarrhea Musculoskeletal: No joint pain Male : No dysuria Objective Physical Exam Notes: General Appearance: WD/WN, no apparent distress Eyes: normal inspection, PERRL, EOMI ENT: normal ENT inspection Neck: supple Respiratory/Chest: chest non-tender, lungs clear, no respiratory distress, no accessory muscle use, + pertinent finding (decreased breath sounds in all lung tolbert and end expiratory wheezing has resolved ) Cardiovascular: regular rate, rhythm, no edema, no gallop, no JVD, no murmur, + pertinent finding (pacemaker subq) Abdomen: normal bowel sounds, non tender, soft, no organomegaly, + pertinent finding (ostomy draining fecal matter) Extremities: + pertinent finding (pt is paraplegic and unable to move LE to command. ) Neurologic/Psychiatric: alert, normal mood/affect, + motor weakness (paralysis of LE bilaterally. ), + pertinent finding (oriented to person, place ([place], [facility]) and time (year). Skin: normal color Lymphatic: no adenopathy Assessment and Plan 87M with a PMHX of paraplegia s/p fall 15yrs ago, COPD (not on oxygen at home), CAD with Stent & Pacemaker placement, chronic indwelling cronin and ileostomy p/ w acute onset SOB the evening prior. 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 Patient was also found to have a UTI. Pt was started on IV steroids and Levofloxacin. Pt showed clinical improved on hospital Day #1 according to his . HPI was reviewed and cough was more acute onset that previously understood, ordered a D- Dimer which was >[address] for PE was ordered on 07/25/17. Results showed: 1. Moderate chronic pulmonary emboli but no acute emboli - pt was started on Xarelto today in the AM. 2. Moderately enlarged subcarinal lymph node which is nonspecific. - recommend follow up CT in 6 months. 3. Severe emphysema. - known finding 4. Bilateral lower lobe bronchial wall thickening with moderate secretions. - consistent with pt's history of chronic cough. 5. Thinning of the left ventricular apical wall which suggests an old infarct. - will order an echo Acute Hypoxic Respiratory Failure 2/2 COPD exacerbation (not on home oxygen) vs PE Pt denies any type of chest pain. Pt still requires 2LNC. duonbed qid incentive spirometer. Wean Oxygen at tolerated. Change Levaquin to Azithromycin. Will also obtain speech swallow eval. s/p IV steroids, starting on 40mg PO Prednisone. Chronic PE's as above finding. Increased risk for PEs after new onset paraplegia, these may be related to >10 years ago after the patient sustained his back injury. After discussion with ordnance [employer] officer and independent research it was decided to start the pt on Xarelto daily. Defer option of hypercoagulable workup to outpatient doctor. (Dr. Iam Yang ) Thinning of the left ventricular apical wall F/u Echocardiogram results. Last echo in 2012 showed an EF of 30%, and significant wall motion abnormalities and ventricular aneurysm. UTI Urine culture from 07/24/17 one day [employer] reviewed and resistant to Levaquin and Cipro, after talking with Pharmacy, will start IV Cefepime - pt may need IV Abx on DC if true catheter associated UTI is suspected. Await Urine and Blood Cultures. Coronary artery disease h/o MO w Pacemaker Placement c/w Coreg 3.125mg BID c/w digoxin 0.125mg daily. c/w Imdur c/w Lipitor 50mg daily. GERD Continue PPI Depression Continue Lexapro Hx of spinal trauma ~ 15 years prior. patient paralyzed from the waist down chronic indwelling cronin for neurogenic bladder. continue oxybutynin daily DVT Prophylaxis Xarelto as above. Dispo: Continued Telemetry monitoring until cardiac workup is complete. PT / OT placed - may need placement or home needs, will monitor. DNR Resident Involvement: Resident Care Provided Care Provided: Adult Hospital Medicine Reviewed: Pt Seen/Exam by Me History wheezing this am. denies worsening shortness of breath. cough + Constitutional: denies: fever Cardiovascular: denies chest pain General Appearance: no apparent distress Respiratory: decreased breath sounds Cardiovascular: regular rate, rhythm Neurologic/Psychiatric: alert, oriented x 3 Skin Characteristics: warm/dry Assessment/Plan Resident Physician Supervision Note: I independently interviewed and examined the patient and verified the jesus history and physical, reviewed labs and image studies, discussed the case with the resident Dr. Hernandez and agree with the findings and care plan.
[2017-07-26] MEDS: ALBUT/IPRATROP 3MG/0.5MG NEB 3 ML VIAL INH SCH ×4 (07:24→18:54)
[2017-07-26 07:44] LABS: BASO % 0.1 %; BASO ABS # 0.01 K/uL (0-0.2); EOS % 0.7 %; EOS ABS # 0.05 K/uL (0-0.5); HEMATOCRIT 41.9 % (42-52); HEMOGLOBIN 14.5 g/dL (14.0-18.0); IG# 0.03 K/uL (0.00-0.02); LYMPH % 10.2 %; LYMPH ABS # 0.75 K/uL (1.2-3.4); MEAN CELL VOLUME 86.9 fL (80-100); MEAN CORPUSCULAR HEMOGLOBIN 30.1 pg (25-34); MEAN PLATELET VOLUME 9.3 fL (7.4-10.4); MONO % 10.6 %; MONO ABS # 0.78 K/uL (0.11-0.59); NEUT ABS # 5.75 K/uL (1.4-6.5); PLATELET COUNT 144 K/uL (130-400); RED CELL DISTRIBUTION WIDTH CV 13.3 % (11.5-14.5); RED CELL DISTRIBUTION WIDTH SD 42.8 fL (36.4-46.3); WHITE BLOOD COUNT 7.37 K/uL (4.8-10.8)
[2017-07-26 07:50] LABS: MEAN CORPUSCULAR HGB CONC 34.6 g/dl (32-36)
[2017-07-26 08:02] LABS: CALCIUM 8.5 mg/dl (8.5-10.1); CREATININE 1.03 mg/dl (0.60-1.40); POTASSIUM 3.9 mmol/L (3.5-5.1)
[2017-07-26] MEDS: CARVEDILOL 3.125 MG TAB PO SCH ×2 (08:46→16:49)
[2017-07-26] MEDS: FLUTICASONE PROPIONATE NA SPR 16 GM BTL NAE SCH (08:46)
[2017-07-26] MEDS: LACTOBACILLUS ACIDOPHILUS (FLORANEX) TAB PO SCH (08:47)
[2017-07-26] MEDS: OXYBUTYNIN CHLORIDE 5 MG TAB PO SCH ×3 (08:47→16:48)
[2017-07-26] MEDS: ESCITALOPRAM OXALATE 10 MG TAB PO SCH (08:48)
[2017-07-26] MEDS: MAGNESIUM OXIDE 400 MG TAB PO SCH (08:48)
[2017-07-26] MEDS: ATORVASTATIN 20 MG TAB PO SCH (08:48)
[2017-07-26] MEDS: ISOSORBIDE MONONITRATE 30 MG TABCR PO SCH (08:48)
[2017-07-26] MEDS: PANTOprazole SOD 40 MG TAB PO SCH (08:49)
[2017-07-26] MEDS: RIVAROXABAN TAB 15 MG TAB PO SCH (08:49)
[2017-07-26] MEDS ORDERED: PERFLUTREN LIPID MICROSPHERE (DEFINITY) IV ONE (09:11)
--- NOTE | 2017-07-26 11:21 | ECHOCARDIOGRAM REPORT ---
*NOTICE TO RECEIVING REPUBLICAN AGENCY This information is strictly Confidential and protected under [place] law. [place] law prohibits you from making any further disclosure of this information unless further disclosure is expressly permitted by the written consent of the person to whom it pertains or is authorized by law. A general authorization for the release of medical or other information is not sufficient for this purpose. Hospital accepts no responsibility if the information is made available to any other person, INCLUDING THE PATIENT. Interpretation Summary * Name: DAMIEN DOBBS Study Date: 07/26/2017 08:03 AM BP: 129/62 mmHg * Patient Location: .MSICU\S\E110\S\1 HR: 72 * : 1930 (M/d/y) Gender: Male Height: 67 in * Age: 87 yrs Ethnicity: [place] Weight: 130 lb * Ordering Physician: Amador Hernandez * Referring Physician: Iam Yang * Performed By: Livier Sewell RDCS * * Reason For Study: History of Pulmonary Embolism and Thinned ventricular wall on CT * BSA: 1.7 m2 * -- Conclusions -- * 1. Normal LV size. Borderline concentric LVH. * 2. LVEF 35-40 %. LAD distribution wall motion abnormality with akinetic/aneurysmal apex. * 3. Normal RV size with borderline RV function. * 4. Grade 1 diastolic dysfunction * 5. No significant valvular pathology. * 6. Severe pulmonary hypertension. Estimated PASP 65-70 mmHg. Normal IVC. * 7. Compared with prior study on 10/01/2012: No significant change Procedure Details * A complete two-dimensional transthoracic echocardiogram was performed (2D, M-mode, Doppler and color flow Doppler). * A contrast injection of Definity was performed to improve assessment of LV function. * Contrast was injected into an intravenous site in the left arm. * One vial of Definity ultrasound contrast was diluted in normal saline to a total volume of 10 ml. A total of '1' ml of solution was administered during imaging. * Lot # [id number] of Definity utilized for procedure. * Expiration date 1APR19. * The attending nurse who injected the contrast agent was Janelle Cheney RN. Left Ventricle * The left ventricle is grossly normal size. * There is borderline concentric left ventricular hypertrophy. * Ejection Fraction = 35-40%. * LAD distribution wall motion abnormality (see stevenseye for details) Right Ventricle * The right ventricle is not well visualized. * The right ventricle is grossly normal size. * The right ventricular systolic function is borderline reduced. Atria * The left atrium is mildly dilated. * Right atrium not well visualized. * Right atrial size is normal. * No ASD detected; PFO is not assessed. Mitral Valve * The mitral valve is grossly normal. * There is no mitral valve stenosis. * There is trace mitral regurgitation. Tricuspid Valve * There is mild tricuspid regurgitation. * Right ventricular systolic pressure is elevated at >60mmHg. Aortic Valve * The aortic valve opens well. * The aortic valve is trileaflet. * No hemodynamically significant valvular aortic stenosis. * There is no significant aortic regurgitation. Pulmonic Valve * The pulmonary valve is inadequately visualized, but the Doppler data is adequate for interpretation. * Pulmonic stenosis is absent. * There is no significant pulmonary regurgitation. Great Vessels * The aortic root and proximal ascending aorta are normal sized. Pericardium/Pleural * There is no pericardial effusion. Great Vessels * Normal inferior vena cava size and collapsability with sniff indicates a normal right atrial pressure of 3 mmHg * Estimated PASP 65-70 mmHg Left Ventricular Diastolic Function * Grade I diastolic dysfunction, (abnormal relaxation pattern). MMode 2D Measurements and Calculations Ao root diam 3.3 cm Ao root area 8.7 cm\S\2 ACS 1.7 cm LVAd ap4 35.2 cm\S\2 LVLd ap4 8.7 cm EDV(MOD-sp4) 115.6 ml EDV(sp4-el) 121.2 ml LVAs ap4 24.4 cm\S\2 LVLs ap4 7.9 cm ESV(MOD-sp4) 61.8 ml ESV(sp4-el) 64.1 ml EF(MOD-sp4) 46.5 % EF(sp4-el) 47.1 % LVAd ap2 38.9 cm\S\2 LVLd ap2 8.9 cm EDV(MOD-sp2) 139.7 ml EDV(sp2-el) 144.4 ml LVAs ap2 29.6 cm\S\2 LVLs ap2 8.3 cm ESV(MOD-sp2) 89.0 ml ESV(sp2-el) 90.3 ml EF(MOD-sp2) 36.3 % EF(sp2-el) 37.5 % LVLd %diff 2.3 % EDV(MOD-bp) 127.7 ml LVLs %diff 5.0 % ESV(MOD-bp) 74.4 ml EF(MOD-bp) 41.8 % SV(MOD-sp4) 53.8 ml SI(MOD-sp4) 32.0 ml/m\S\2 SV(MOD-sp2) 50.7 ml SI(MOD-sp2) 30.1 ml/m\S\2 SV(MOD-bp) 53.4 ml SI(MOD-bp) 31.7 ml/m\S\2 SV(sp4-el) 57.0 ml SI(sp4-el) 33.9 ml/m\S\2 SV(sp2-el) 54.1 ml SI(sp2-el) 32.2 ml/m\S\2 Doppler Measurements and Calculations MV E max vinod 74.4 cm/sec MV A max vinod 103.5 cm/sec MV E/A 0.72 MV dec time 0.15 sec Ao V2 max 108.8 cm/sec Ao max PG 4.7 mmHg Ao max PG (full) 1.6 mmHg LV V1 max PG 3.1 mmHg LV V1 max 88.4 cm/sec PA V2 max 106.4 cm/sec PA max PG 4.5 mmHg TR max vinod 383.6 cm/sec
[2017-07-26] MEDS ORDERED: AZITHROMYCIN 250 MG TAB PO ONE (12:00)
[2017-07-26] MEDS: CEFEPIME IV 2,000 MG in SYRINGE 7.5 ML IV SCH (12:40)
[2017-07-26] MEDS: DIGOXIN 0.125 MG TAB PO SCH (16:48)
[2017-07-27] VITALS (10 sets, daily range): BP systolic 115–139; BP diastolic 54–65; PULSE 61–73; TEMP 36.4–36.6; O2SAT 85–100
[2017-07-27] MEDS ORDERED: LEVOFLOXACIN / D5W 750 MG in PREMIXED IN D5W 150 ML IV SCH (06:00)
[2017-07-27 07:20] LABS: BASO % 0.2 %; BASO ABS # 0.02 K/uL (0-0.2); EOS % 0.3 %; EOS ABS # 0.03 K/uL (0-0.5); HEMATOCRIT 39.2 % (42-52); HEMOGLOBIN 13.3 g/dL (14.0-18.0); IG# 0.05 K/uL (0.00-0.02); LYMPH % 6.7 %; LYMPH ABS # 0.63 K/uL (1.2-3.4); MEAN CELL VOLUME 88.9 fL (80-100); MEAN CORPUSCULAR HEMOGLOBIN 30.2 pg (25-34); MEAN CORPUSCULAR HGB CONC 33.9 g/dl (32-36); MEAN PLATELET VOLUME 9.4 fL (7.4-10.4); MONO % 9.5 %; NEUT % 82.8 %; NEUT ABS # 7.84 K/uL (1.4-6.5); PLATELET COUNT 159 K/uL (130-400); RED CELL DISTRIBUTION WIDTH CV 13.5 % (11.5-14.5); RED CELL DISTRIBUTION WIDTH SD 44.2 fL (36.4-46.3); WHITE BLOOD COUNT 9.47 K/uL (4.8-10.8)
[2017-07-27] MEDS: ALBUT/IPRATROP 3MG/0.5MG NEB 3 ML VIAL INH SCH ×4 (07:27→19:39)
[2017-07-27 07:52] LABS: ALBUMIN 2.7 gm/dl (3.4-5.0); CREATININE 0.96 mg/dl (0.60-1.40); POTASSIUM 4.1 mmol/L (3.5-5.1)
[2017-07-27 07:54] LABS: TOTAL PROTEIN 6.3 gm/dl (6.4-8.2)
[2017-07-27] MEDS: FLUTICASONE PROPIONATE NA SPR 16 GM BTL NAE SCH (08:54)
[2017-07-27] MEDS: ISOSORBIDE MONONITRATE 30 MG TABCR PO SCH (08:55)
[2017-07-27] MEDS: OXYBUTYNIN CHLORIDE 5 MG TAB PO SCH ×4 (08:55→20:27)
[2017-07-27] MEDS: LACTOBACILLUS ACIDOPHILUS (FLORANEX) TAB PO SCH ×2 (08:55→20:27)
[2017-07-27] MEDS: ATORVASTATIN 20 MG TAB PO SCH (08:55)
[2017-07-27] MEDS: ESCITALOPRAM OXALATE 10 MG TAB PO SCH (08:55)
[2017-07-27] MEDS: CARVEDILOL 3.125 MG TAB PO SCH ×2 (08:56→16:10)
[2017-07-27] MEDS: AZITHROMYCIN 250 MG TAB PO SCH (08:56)
[2017-07-27] MEDS: RIVAROXABAN TAB 15 MG TAB PO SCH ×2 (08:56→20:27)
[2017-07-27] MEDS: PANTOprazole SOD 40 MG TAB PO SCH (08:56)
[2017-07-27] MEDS: MAGNESIUM OXIDE 400 MG TAB PO SCH ×2 (08:57→20:28)
[2017-07-27] MEDS: SODIUM CHLORIDE 0.9% 1000ML 1,000 ML IV SCH (08:57)
[2017-07-27] MEDS: CEFEPIME IV 2,000 MG in SYRINGE 7.5 ML IV SCH (12:19)
[2017-07-27] MEDS ORDERED: METHYLPREDNISOLONE IV 40 MG in SYRINGE 0 ML IV ONE (14:30)
--- NOTE | 2017-07-27 15:39 | Family Medicine Progress Note ---
Progress Note Date of Service Jul 27, 2017. Subjective Pt evaluation today including: conversation w/ patient, physical exam, chart review, lab review, review of studies, review of inpatient medication list Feeling much improved today. Still wheezing but easier to breath. No chest pain , shortness of breath at rest. All Other Systems: Reviewed and Negative Medications Current Inpatient Medications Medications (Trade) Dose Ordered Sig/Eloisa Route Start Time Stop Time Status Last Admin Dose Admin Acetaminophen (Tylenol Tab) 650 mg Q4H PRN PO 07/25/17 05:45 08/24/17 05:44 Al Hydrox/Mg Hydrox/Simethicone (Maalox Max Susp) 15 ml Q4H PRN PO 07/25/17 05:45 08/24/17 05:44 Magnesium Hydroxide (Milk Of Magnesia Susp) 30 ml Q12H PRN PO 07/25/17 05:45 08/24/17 05:44 Ondansetron HCl (Zofran Inj) 4 mg Q6H PRN IV 07/25/17 05:45 08/24/17 05:44 Polyethylene (Miralax Powder Packet) 17 gm DAILY PRN PO 07/25/17 05:45 08/24/17 05:44 Albuterol/ Ipratropium (Duoneb) 3 ml QIDR INH 07/25/17 08:00 08/24/17 07:59 07/27/17 14:37 3 ML Sodium Chloride 1,000 ml @ 100 mls/hr Q10H IV 07/25/17 06:15 08/24/17 06:14 07/27/17 08:57 100 MLS/HR Atorvastatin Calcium (Lipitor Tab) 40 mg DAILY PO 07/25/17 09:00 08/24/17 08:59 07/27/17 08:55 40 MG Carvedilol (Coreg Tab) 3.125 mg BIDM PO 07/25/17 07:15 08/24/17 07:59 07/27/17 08:56 3.125 MG Digoxin (Lanoxin Tab) 0.125 mg DAILY@1600 PO 07/25/17 16:00 08/24/17 15:59 07/26/17 16:48 0.125 MG Escitalopram Oxalate (Lexapro Tab) 10 mg DAILY PO 07/25/17 09:00 08/24/17 08:59 07/27/17 08:55 10 MG Fluticasone Propionate (Flonase Nasal [place]) 2 sprays DAILY BARRY 07/25/17 09:00 08/24/17 08:59 07/27/17 08:54 2 SPRAYS Isosorbide Mononitrate (Imdur Ext Rel Tab) 30 mg QAM PO 07/25/17 09:00 08/24/17 08:59 07/27/17 08:55 30 MG Lactobacillus Acidophilus (Floranex Tab) 1 tab BID PO 07/25/17 09:00 08/24/17 08:59 07/27/17 08:55 1 TAB Magnesium Oxide (Mag-Ox Tab) 400 mg BID PO 07/25/17 09:00 08/24/17 08:59 07/27/17 08:57 400 MG Oxybutynin Chloride (Ditropan Tab) 5 mg QID PO 07/25/17 09:00 08/24/17 08:59 07/27/17 12:19 5 MG Sodium Chloride (Iantha Nasal [place]) 2 sprays DAILY PRN BARRY 07/25/17 06:00 08/24/17 05:59 Pantoprazole Sodium (Protonix Tab) 40 mg QAM PO 07/25/17 09:00 08/24/17 08:59 07/27/17 08:56 40 MG Ioversol (Optiray 320) 100 ml UD PRN IV 07/25/17 17:15 07/29/17 17:14 Rivaroxaban (Xarelto Tab) 15 mg BID PO 07/26/17 09:00 08/15/17 08:59 07/27/17 08:56 15 MG Cefepime HCl 2000 mg/Syringe 20 ml @ 5 mls/min DAILY@1200 IV 07/26/17 12:00 08/05/17 11:59 07/27/17 12:19 5 MLS/MIN Azithromycin (Zithromax Tab) 250 mg QAM PO 07/27/17 08:00 07/30/17 08:01 07/27/17 08:56 250 MG Methylprednisolone Sodium Succinate 40 mg/Syringe 0.64 ml @ 1.5 mls/min BID IV 07/28/17 08:00 08/27/17 07:59 Objective Vital Signs Date Time Temp Pulse Resp B/P (MAP) Pulse Ox O2 Delivery O2 Flow Rate FiO2 07/27/17 15:05 Nasal Cannula 1.0 07/27/17 15:01 36.4 61 18 139/65 (89) 100 2.0 07/27/17 14:37 73 20 96 Nasal Cannula 2.0 07/27/17 11:16 68 20 88 Nasal Cannula 1.0 07/27/17 09:45 Nasal Cannula 2.0 07/27/17 08:59 93 Nasal Cannula 1.0 07/27/17 08:58 87 Room Air 07/27/17 07:27 73 22 94 Nasal Cannula 1.0 07/27/17 06:59 36.6 70 17 115/54 (74) 94 Nasal Cannula 1.0 07/27/17 00:00 94 Nasal Cannula 2.0 07/26/17 22:50 36.4 61 20 142/63 (89) 100 Nasal Cannula 1.0 07/26/17 20:08 36.7 75 22 152/83 (106) 99 Nasal Cannula 1.5 07/26/17 19:30 36.8 70 20 94 2.0 07/26/17 19:25 Nasal Cannula 2.0 07/26/17 19:00 36.8 68 24 140/72 (94) 94 Nasal Cannula 2.0 07/26/17 18:56 70 20 94 Nasal Cannula 2.0 07/26/17 16:48 72 07/26/17 16:00 Nasal Cannula 2.0 Physical Exam General Appearance: + pertinent finding (audible wheezing at bedside) Respiratory/Chest: no respiratory distress, no accessory muscle use, + wheezing (inspiratory and expiratory) Cardiovascular: regular rate, rhythm, no murmur Abdomen: normal bowel sounds, non tender, soft Extremities: no pedal edema, no calf tenderness, normal capillary refill Neurologic/Psychiatric: + pertinent finding (paraplegia with associated muscle wasting of lower limbs) Skin: normal color, warm/dry, no rash Laboratory Results 07/27/17 06:57 Red Blood Count 4.41, Mean Corpuscular Volume 88.9, Mean Corpuscular Hemoglobin 30.2, Mean Corpuscular Hemoglobin Concent 33.9, Mean Platelet Volume 9.4, Neutrophils (%) (Auto) 82.8, Lymphocytes (%) (Auto) 6.7, Monocytes (%) (Auto) 9.5, Eosinophils (%) (Auto) 0.3, Basophils (%) (Auto) 0.2, Neutrophils # (Auto) 7.84, Lymphocytes # (Auto) 0.63, Monocytes # (Auto) 0.90, Eosinophils # (Auto) 0.03, Basophils # (Auto) 0.02 07/27/17 06:57 Test 07/27/17 06:57 White Blood Count 9.47 K/uL (4.8-10.8) Red Blood Count 4.41 M/uL (4.7-6.1) Hemoglobin 13.3 g/dL (14.0-18.0) Hematocrit 39.2 % (42-52) Mean Corpuscular Volume 88.9 fL (80-100) Mean Corpuscular Hemoglobin 30.2 pg (25-34) Mean Corpuscular Hemoglobin Concent 33.9 g/dl (32-36) Platelet Count 159 K/uL (130-400) Mean Platelet Volume 9.4 fL (7.4-10.4) Neutrophils (%) (Auto) 82.8 % Lymphocytes (%) (Auto) 6.7 % Monocytes (%) (Auto) 9.5 % Eosinophils (%) (Auto) 0.3 % Basophils (%) (Auto) 0.2 % Neutrophils # (Auto) 7.84 K/uL (1.4-6.5) Lymphocytes # (Auto) 0.63 K/uL (1.2-3.4) Monocytes # (Auto) 0.90 K/uL (0.11-0.59) Eosinophils # (Auto) 0.03 K/uL (0-0.5) Basophils # (Auto) 0.02 K/uL (0-0.2) RDW Standard Deviation 44.2 fL (36.4-46.3) RDW Coefficient of Variation 13.5 % (11.5-14.5) Immature Granulocyte % (Auto) 0.5 % Immature Granulocyte # (Auto) 0.05 K/uL (0.00-0.02) Anion Gap 3.0 mmol/L (3-11) Est Creatinine Clear Calc Drug Dose 44.6 ml/min Estimated GFR () 81.5 Estimated GFR (Non- 70.3 BUN/Creatinine Ratio 19.1 (10-20) Calcium Level 8.0 mg/dl (8.5-10.1) Total Bilirubin 0.2 mg/dl (0.2-1) Aspartate Amino Transf (AST/SGOT) 20 U/L (15-37) Alanine Aminotransferase (ALT/SGPT) 20 U/L (12-78) Alkaline Phosphatase 88 U/L (45-117) Total Protein 6.3 gm/dl (6.4-8.2) Albumin 2.7 gm/dl (3.4-5.0) Globulin 3.6 gm/dl (2.5-4.0) Albumin/Globulin Ratio 0.8 (0.9-2) Assessment and Plan 87yo male with lower limb paraplegia, coronary artery disease presents with acute onset SOB. 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 CT performed due to concern of acute PE but did show severe emphysema and chronic PEs. Acute Hypoxic Respiratory Failure 2/2 COPD exacerbation with chronic PEs - Aim O2 sats >=92%, evaluate for home O2 on discharge - incentive spirometer COPD exacerbation - increase in wheezing today but subjectively better. Will switch back to IV solumedrol for today and give prednisone tomorrow. - continue duonebs QID - add restart his outpatient Symbicort as significantly worse wheezing in between duonebs - consider PFTs +/- LAMA as outpatient - azithromycin for 5 days (started 07/26) - Speech and Language assessed swallow - Regular diet, recommended aspiration precautions, fully upright for meals and 30 minutes after, alternate solids/ liquids (use of lingual sweep as needed to clear oral retention) Chronic pulmonary emboli - new since 2012 - Started Xarelto 15mg BID (started 07/26), 21 days then 20mg PO daily - discussed with Dr Godfrey - recommended outpatient workup for cancer eg. colonoscopy and hypercoagulable workup (will defer to PCP) Moderately enlarged subcarinal lymph node which is nonspecific - recommend follow up CT in 6 months. Thinning of the left ventricular apical wall, LVEF 35-40%, no pulmonary edema on CT - no significant change with echo since last one in 2012 therefore no new therapy started. recommend outpatient PCP follow up given history of coronary artery disease and not on aspirin etc... Positive urine culture for pseudomonas - likely colonized - improvement with levaquin (which it is resistant to), steroids and nebulizers and previous urine cultures with pseudomonas therefore represents colonization rather than infection - stop cefepime - blood cultures negative Coronary artery disease h/o ME w AICD, PMHx atrial flutter - unclear why he is not on ASA - follow up with PCP - continue carvedilol, imdur and lipitor - continue digoxin for Hx atrial flutter GERD Continue PPI Depression Continue Lexapro Hx of spinal trauma ~ 15 years prior. patient paralyzed from the waist down chronic indwelling cornin for neurogenic bladder. continue oxybutynin VTE Prophylaxis Xarelto as above Code DNR, the patient has an AICD and he wishes this to be kept on Resident Tracking Resident Involvement: Resident Care Provided Care Provided: Adult Hospital Medicine Reviewed: Pt Seen/Exam by Me History has had episodes of wheezing off and on. denies worsening shortness of breath Constitutional: denies: fever Respiratory: negative: short of breath Cardiovascular: denies chest pain General Appearance: mild distress Respiratory: respiratory distress (mild), wheezing, expiration Cardiovascular: regular rate, rhythm Gastrointestinal: soft Neurologic/Psychiatric: alert, oriented x 3 Skin Characteristics: warm/dry Assessment/Plan Resident Physician Supervision Note: I independently interviewed and examined the patient and verified the jesus history and physical, reviewed labs and image studies, discussed the case with the resident Dr. Hernandez and agree with the findings and care plan.
[2017-07-27] MEDS: DIGOXIN 0.125 MG TAB PO SCH (16:10)
[2017-07-27] MEDS ORDERED: BUDESONIDE/FORMOTEROL FUMARATE 160/4.5 60 PUFFS/INHALER INH ONE (17:30)
[2017-07-28 00:02] VITALS: BP 150/79; PULSE 63; TEMP 36.5; O2SAT 99
[2017-07-28 06:03] LABS: HEMATOCRIT 41.8 % (42-52); HEMOGLOBIN 14.4 g/dL (14.0-18.0)
[2017-07-28 07:23] VITALS: BP 153/78; PULSE 66; TEMP 36.6; O2SAT 98
[2017-07-28] MEDS: ALBUT/IPRATROP 3MG/0.5MG NEB 3 ML VIAL INH SCH ×2 (07:26→11:25)
[2017-07-28 07:28] VITALS: PULSE 65; O2SAT 99
[2017-07-28] MEDS ORDERED: METHYLPREDNISOLONE IV 40 MG in SYRINGE 0 ML IV SCH (08:00)
[2017-07-28] MEDS ORDERED: BUDESONIDE/FORMOTEROL FUMARATE 160/4.5 60 PUFFS/INHALER INH SCH (08:00)
[2017-07-28] MEDS: AZITHROMYCIN 250 MG TAB PO SCH (08:22)
[2017-07-28] MEDS: RIVAROXABAN TAB 15 MG TAB PO SCH (08:22)
[2017-07-28] MEDS: ISOSORBIDE MONONITRATE 30 MG TABCR PO SCH (08:23)
[2017-07-28] MEDS: OXYBUTYNIN CHLORIDE 5 MG TAB PO SCH ×2 (08:23→13:13)
[2017-07-28] MEDS: LACTOBACILLUS ACIDOPHILUS (FLORANEX) TAB PO SCH (08:23)
[2017-07-28] MEDS: CARVEDILOL 3.125 MG TAB PO SCH (08:23)
[2017-07-28] MEDS: FLUTICASONE PROPIONATE NA SPR 16 GM BTL NAE SCH (08:23)
[2017-07-28] MEDS: MAGNESIUM OXIDE 400 MG TAB PO SCH (08:23)
[2017-07-28] MEDS: PANTOprazole SOD 40 MG TAB PO SCH (08:23)
[2017-07-28] MEDS: ATORVASTATIN 20 MG TAB PO SCH (08:23)
[2017-07-28] MEDS: ESCITALOPRAM OXALATE 10 MG TAB PO SCH (08:23)
[2017-07-28] MEDS ORDERED: PRED10TA PO (09:08)
[2017-07-28] MEDS ORDERED: XRL15 PO (09:08)
[2017-07-28] MEDS ORDERED: TIOT1SPR INH (09:08)
[2017-07-28] MEDS ORDERED: AZIT-57 PO (09:08)
[2017-07-28 09:26] VITALS: BP 153/78; PULSE 65; TEMP 36.6; O2SAT 99
--- NOTE | 2017-07-28 10:05 | Discharge Instructions ---
Discharge Instructions Date of Service Jul 28, 2017. Admission Reason for Admission: Copd Exacerbation Discharge Discharge Diagnosis / Problem: COPD exacerbation/ Chronic Pulmonary Emboli Discharge Goals Goal(s): Diagnostic testing, Therapeutic intervention Activity Recommendations Activity Limitations: resume your previous activity . Instructions / Follow-Up Instructions / Follow-Up You were admitted to the hospital in order to treat your COPD exacerbation. You were treated in the hospital with antibiotics and we would like you to continue this course to complete 5 full days of antibiotics. You will also be provided with a prednisone taper which I will provide you with instructions below. An echo ( ultrasound of the heart) was completed and revealed increased pressures in the vessels of your lungs. These was concerning for clots in your lungs and there was changes on the scan which revealed chronic pulmonary emboli. You were started on Xarelto which is a blood thinner. If you develop any bleeding which can not be controlled after 15 minutes please call your PCP or come to the ED. 1. Antibiotic Azithromycin- Please take one daily for 2 more days 2. Prednisone- 50 mg x 2 days, 40 mg x 2 days, 30 mg x 2 days, 20 mg x 2 days, 10 mg x 2 days - First dose today 3. Xarelto- please take twice a day for 19 days - You will need a new script for xarelto to be taken daily after 19 days - follow up in PCP next week Current Hospital Diet Patient's current hospital diet: Regular Diet Discharge Diet Recommended Diet: Regular Diet Pending Studies Studies pending at discharge: no Laboratory Results Results Past 24 Hours Test 07/28/17 05:19 Range/Units Hemoglobin 14.4 14.0-18.0 g/dL Hematocrit 41.8 42-52 % Medical Emergencies . Who to Call and When: Medical Emergencies: If at any time you feel your situation is an emergency, please call 911 immediately. . Non-Emergent Contact Non-Emergency issues call your: Primary Care Provider Call Non-Emergent contact if: you have a fever, your pain is unusual for you, you have any medication questions . . "Provider Documentation" section prepared by Winifred Vaughn. .
--- NOTE | 2017-07-28 10:19 | Discharge Summary ---
Discharge Summary Date of Service Jul 28, 2017. Discharge Summary Admission Date: Jul 25, 2017 at 05:53 Discharge Date: Jul 28, 2017 Discharge Disposition: Home with services Principal Diagnosis: COPD exacerbation Problems/Secondary Diagnoses: GERD CAD NV Atrial flutter Systolic CHF with AICD- stable * -- Conclusions -- Echo 07/27/2017 * 1. Normal LV size. Borderline concentric LVH. * 2. LVEF 35-40 %. LAD distribution wall motion abnormality with akinetic/ aneurysmal apex. * 3. Normal RV size with borderline RV function. * 4. Grade 1 diastolic dysfunction * 5. No significant valvular pathology. * 6. Severe pulmonary hypertension. Estimated PASP 65-70 mmHg. Normal IVC. * 7. Compared with prior study on 10/01/2012: No significant change Spinal injury Depression Immunizations: Have You Had Influenza Vaccine: No History of Tetanus Vaccine?: Unknown Tetanus Immunization Date: Jan 22, 2009 History of Pneumococcal: Yes Pneumococcal Date: Mar 27, 2011 History of Hepatitis B Vaccine: Unknown Medication Reconciliation New Medications: Prednisone (Prednisone) 10 Mg Tab 10 MG PO UD, #30 TAB 50 x 2 days, 40 x 2days, 30 x 2 days, 20 x 2 days, 10 x 2 days Tiotropium [place] (Spiriva Respimat) 2.5 Mcg/Act Spr 2 PUFF INH DAILY for 30 Days, #1 INHALER Azithromycin (Azithromycin) 250 Mg Tab 250 MG PO QAM for 5 Days, #6 TAB Rivaroxaban (Xarelto) 15 Mg Tab 15 MG PO BID for 21 Days, #42 TAB complete 19 days of xarelto 2x/days Continued Medications: Acetaminophen (Tylenol) 500 Mg Tab 1-2 TAB PO Q6 PRN for Pain or Fever for 2 Days, #20 TAB 3 Refills Albuterol Sulf (Proventil 0.083% 2.5MG/3ML) 2.5 Mg/3 Ml Nebu 2.5 MG INH Q6H PRN for Shortness of Breath, EA Albuterol Sulfate (Proair Respiclick) 108 Mcg/Act Aer 1-2 PUFFS INH Q4 PRN for Shortness of Breath Atorvastatin (Lipitor) 40 Mg Tab 40 MG PO DAILY, TAB Budesonide/Formoterol Fumarate (Symbicort 160/4.5 Inhaler ) Aero 1 PUFFS INH BID, INHALER Carvedilol (Coreg) 3.125 Mg Tab 3.125 MG PO BIDM, TAB TAKE WITH MORNING AND EVENING MEALS Cholecalciferol (Vitamin D 1000 Unit) 1,000 Unit Cap 1000 INTER.UNIT PO DAILY, CAP Cranberry-Vitamin C (Cranberry/Vitamin C) 1 Cap Cap 1 TAB PO DAILY Digoxin (Digox) 125 Mcg Tab 1 TAB PO DAILY Escitalopram (Lexapro) 10 Mg Tab 10 MG PO DAILY, TAB Fluticasone Propionate (Nasal) (Flonase Allergy Relief) 50 Mcg/Act Spr 1 SPRAY BARRY DAILY Guaifenesin Ext Rel (Mucinex Ext Rel) 600 Mg Tab 600 MG PO Q12 PRN for CONGESTION, TAB Hydrocortisone (Topical) (Hydrocortisone) 2.5 % Oin 1 APPLN TOP DIRECTED PRN for SKIN IRRITATION for 10 Days, #60 GM 1 Refill APPLY TO BACK AND NECK NEEDED. Isosorbide Mononitrate Ext Rel (Imdur Ext Rel) 30 Mg Ertab 30 MG PO QAM, TAB Lactobacillus (Lactinex) Chw 1 TABLET PO BID, CHW Magnesium Oxide (Mag-Ox) 400 Mg Tab 400 MG PO BID, 0 Refills Melatonin (Kp Melatonin) 3 Mg Tab 3 MG PO HS for 30 Days, #30 TAB Menthol-Zinc Oxide (Moisture Barrier 0.44-20.6 %) 1 Oin Oin 1 APPLN TP BID AND PRN INCONTINENCE Metaxalone (Skelaxin) 800 Mg Tab 800 MG PO Q8 PRN for PRN, 0 Refills Multiple Vitamin (Multivitamin) 1 Tab Tab 1 TAB PO DAILY, TAB Multivitamins/Minerals (Cerovite Advanced Formula) 1 Tab Tab 1 TAB PO QAM Mupirocin 2% (Bactroban 2%) 30 Gm Cr 1 APPLN EXT TID PRN for Itching, TUBE Omeprazole (Prilosec) 40 Mg Cap 40 MG PO DAILY, CAP Oxybutynin Chloride (Oxybutynin Chloride) 5 Mg Tab 1 TAB PO QID Saline (Saline Nasal [place]) 0.65 % Spr 1 SPRAY BARRY DAILY PRN for DRYNESS Discontinued Medications: Amoxicillin (Amoxil) 500 Mg Cap 500 MG PO BID, #21 CAP STARTED 07/18/17 FOR 7 DAYS. Discharge Exam Patient states he feels well today, improved dyspnea. We discussed discharge and patient was agreeable and understanding of the discharge instructions. Questions and concerns were addressed Review of Systems: Constitutional: No fever Eyes: No worsening of vision ENT: No hearing loss Respiratory: + wheezing (improving), No cough, No sputum, No shortness of breath, No dyspnea on exertion, No dyspnea at rest Cardiovascular: No chest pain Abdomen: No pain, No nausea, No vomiting Musculoskeletal: + problem reported (paraplegia) Genitourinary - Male: + problem reported (catheter in place) Psychiatric: No depression symptoms Endocrine: No fatigue Hematologic / Lymphatic: No abnormal bleeding/bruising Integumentary: No rash Physical Exam: General Appearance: no apparent distress Eyes: normal inspection ENT: normal ENT inspection Neck: supple Respiratory/Chest: no respiratory distress, no accessory muscle use, + decreased breath sounds (bilat bases and diminished throughout), + wheezing ( exp wheezing throughout with coarse breath sounds) Cardiovascular: regular rate, rhythm, no murmur, normal peripheral pulses Abdomen / GI: normal bowel sounds, non tender, soft Extremities: normal inspection, + pertinent finding (paraplegia) Neurologic/Psychiatric: alert, normal mood/affect, oriented x 3 Skin: normal color, warm/dry, no rash Lymphatic: no adenopathy Hospital Course 87yo male with lower limb paraplegia, coronary artery disease presents with acute onset SOB. 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 Patient was treated for COPD exacerbation with steroids, Azithromycin and Duonebs. Dyspnea improved however persistent oxygen requirement on d/c so script was provided for at home O2. CT performed due to concern of acute PE but did show severe emphysema and chronic PEs. Patient was started on Xarelto 15 mg bid. Acute on chronic hypoxic respiratory failure secondary to COPD exacerbation - D/C with oral prednisone taper - Azithromycin continued to complete course in outpatient setting - Spiriva script provided - continuous O2 rx to maintain O2 sat > 93% - Consider outpatient PFT - Speech and Language assessed swallow - Regular diet, recommended aspiration precautions, fully upright for meals and 30 minutes after, alternate solids/ liquids Chronic pulmonary embolim, Pulmonary HTN - Started Xarelto 15mg BID (started 07/26), will continue for additional 19 days - Script for 20 mg daily Xarelto following this course will need to be provided by PCP - Dr Godfrey - recommended outpatient workup for cancer eg. colonoscopy and hypercoagulable workup (will defer to PCP) Moderately enlarged subcarinal lymph node which is nonspecific - recommend follow up CT in 6 months. Positive urine culture for pseudomonas - likely colonized - Patient initially placed on levaquin and transitioned to Cefepime - Most likely colonization as patient symptoms improved despite treatment with Levaquin which the pseudomonas was resistant to so cefepime was d/c Hx of spinal trauma ~ 15 years prior. patient paralyzed from the waist down chronic indwelling cronin for neurogenic bladder. continue oxybutynin VTE Prophylaxis Xarelto as above Code DNR, the patient has an AICD Total Time Spent: Less than 30 minutes This includes examination of the patient, discharge planning, medication reconciliation, and communication with other providers. Discharge Instructions Please refer to the electronic Patient Visit Report (Discharge Instructions) for additional information. Additional Copies To Iam Yang M.D.
[2017-07-28 11:27] VITALS: PULSE 67; O2SAT 96
== END 2017-07-28 15:07 | disposition home health service (06) | DRG 190 ==
LOC: C.EDB 02:30 → EDBD 02:30 → C.MSICU 05:53 → ENRESERV 05:56 → UNDOADMIN 06:06 → C.MSICU 06:06 → ENRESERV 07-26 19:35 → C.4E 07-26 20:03
PROVIDERS: ADMIT Internal Medicine; ATTEND Family Medicine
DX: J44.1 Chronic obstructive pulmonary disease with (acute) exacerbation (principal); J96.01 Acute respiratory failure with hypoxia; G82.20 Paraplegia, unspecified; N39.0 Urinary tract infection, site not specified; I27.82 Chronic pulmonary embolism; I50.20 Unspecified systolic (congestive) heart failure; I11.0 Hypertensive heart disease with heart failure; E78.5 Hyperlipidemia, unspecified; I25.10 Atherosclerotic heart disease of native coronary artery without angina pectoris; K21.9 Gastro-esophageal reflux disease without esophagitis; F32.9 Major depressive disorder, single episode, unspecified; Z66 Do not resuscitate; Z79.2 Long term (current) use of antibiotics; Z79.899 Other long term (current) drug therapy; Z93.2 Ileostomy status; Z88.2 Allergy status to sulfonamides; Z88.6 Allergy status to analgesic agent; Z95.0 Presence of cardiac pacemaker; Z87.828 Personal history of other (healed) physical injury and trauma

== ENCOUNTER 2017-08-08 14:32 | Inpatient (IN) | payer OTHER ==
[~2017-08-08] VITALS: Ht 170.2 cm; Wt 59.0 kg
[~2017-08-08 14:32] MED LIST changes: +AZIT-57 PO; -BCTCR/30 EXT; -CEFD300C3 PO; +CRAN1CAP11 PO; -CRANCAP4 PO; +GUAI1TAB55 PO; -GUAI1TAB75 PO; +HYDR2.5O TOP; -LACTCHW3 PO; +MELA1TAB5 PO; -MULT-878 PO; +PRED10TA PO; -SYMIN160 INH; +TIOT1SPR INH; +XRL15 PO
[2017-08-08] MEDS ORDERED: SODIUM CHLORIDE 0.9% 1000ML 1,000 ML IV ONE (14:59)
[2017-08-08 15:09] LABS: BASO ABS # 0.01 K/uL (0-0.2); EOS % 1.5 %; EOS ABS # 0.34 K/uL (0-0.5); HEMATOCRIT 45.7 % (42-52); HEMOGLOBIN 15.3 g/dL (14.0-18.0); IG# 0.17 K/uL (0.00-0.02); LYMPH % 10.5 %; LYMPH ABS # 2.36 K/uL (1.2-3.4); MEAN CELL VOLUME 89.8 fL (80-100); MEAN CORPUSCULAR HEMOGLOBIN 30.1 pg (25-34); MEAN CORPUSCULAR HGB CONC 33.5 g/dl (32-36); MEAN PLATELET VOLUME 10.2 fL (7.4-10.4); MONO % 6.9 %; MONO ABS # 1.54 K/uL (0.11-0.59); NEUT % 80.3 %; NEUT ABS # 17.96 K/uL (1.4-6.5); PLATELET COUNT 193 K/uL (130-400); RED CELL DISTRIBUTION WIDTH CV 14.1 % (11.5-14.5); WHITE BLOOD COUNT 22.38 K/uL (4.8-10.8)
[2017-08-08 15:12] LABS: INR 1.2 (0.9-1.1); PTT PATIENT 34.1 SECONDS (21.0-31.0)
[2017-08-08 15:18] LABS: ALBUMIN 2.7 gm/dl (3.4-5.0); CREATININE 1.03 mg/dl (0.60-1.40); POTASSIUM 3.6 mmol/L (3.5-5.1)
[2017-08-08 15:21] LABS: TOTAL PROTEIN 6.6 gm/dl (6.4-8.2)
--- NOTE | 2017-08-08 15:28 | EMERGENCY ROOM VISIT NOTE ---
History Report prepared by Miller: Vishnu Covarrubias Under the Supervision of: Dr. Ned Chaves M.D. First contact with patient: 14:50 Chief Complaint: HYPOTENSION Stated Complaint: HYPOTENSION History of Present Illness The patient is an 87 year old white male with a past medical history of AICD placement, HTN, COPD, colostomy, CAD with stent, HLD, ileostomy, and paraplegia after a fall who presents to the ED with a cc of constant hypotension beginning this morning. Negative chest pain, SOB, abdominal pain, fever, and chills. He has had no recent changes in medications, and he has not missed any doses. The patient is not usually on oxygen. He has a catheter in place which is changed monthly. The patient is a DNR Source of History: patient Onset: this morning Position: other (generalized) Quality: other (hypotension) Timing: constant Associated Symptoms: No fevers, No chills, No chest pain, No SOB, No abdominal pain Review of Systems See HPI for pertinent positives and negatives. A total of ten systems were reviewed and were otherwise negative. Past Medical & Surgical Medical Problems: (1) Back Surgery (2) Benign hypertension (3) Colostomy (4) COPD (5) COPD exacerbation (6) coronary artery disease with stent (7) Family history of cancer (8) Hyperlipidemia (9) Ileostomy (10) Paraplegia Family History Cancer Heart disease Stroke Social History Smoking Status: Never Smoker Alcohol Use: none Drug Use: none Marital Status: Housing Status: lives with family Occupation Status: retired Current/Historical Medications Scheduled Atorvastatin (Lipitor), 40 MG PO DAILY Budesonide/Formoterol Fumarate (Symbicort 160/4.5 Inhaler ), 1 PUFF INH BID Carvedilol (Carvedilol), 3.125 MG PO BIDM Cholecalciferol (Vitamin D 1000 Unit), 1,000 INTER.UNIT PO DAILY Cranberry-Vitamin C (Cranberry/Vitamin C), 1 TAB PO DAILY Digoxin (Digoxin), 0.125 MG PO DAILY Escitalopram Oxalate (Escitalopram Oxalate), 10 MG PO DAILY Fluticasone Propionate (Fluticasone Propionate), 1 SPRAY BARRY BID Isosorbide Mononitrate Ext Rel (Imdur Ext Rel), 30 MG PO QAM Lactobacillus (Lactinex), 1 TABLET PO BID Magnesium Oxide (Mag-Ox), 400 MG PO BID Multiple Vitamins W/ Minerals (Cvs Spectravite Ultra Wom), 1 TAB PO QAM Multivitamins/Minerals (Cerovite Advanced Formula), 1 TAB PO QAM Omeprazole (Prilosec), 40 MG PO DAILY Rivaroxaban (Xarelto), 15 MG PO BID Tiotropium [place] (Spiriva Respimat), 2 PUFFS INH DAILY Scheduled PRN Albuterol Sulfate (Proair Respiclick), 1-2 PUFFS INH Q4-6 HRS PRN for Shortness of Breath Guaifenesin Ext Rel (Mucinex Ext Rel), 600 MG PO Q12 PRN for Congestion Hydrocortisone (Hydrocortisone), 1 APPLN TOP UD PRN for Neck/Back Irritation Metaxalone (Skelaxin), 800 MG PO Q8 PRN for Muscle Relaxer Mupirocin 2% (Bactroban 2%), 1 APPLN TOP TID PRN for Itching Oxybutynin Chloride (Oxybutynin Chloride), 5 MG PO QID PRN for Catheter Changes Saline (Saline Nasal Wilmot), 1 SPRAY BARRY BID PRN for Nasal Dryness Allergies Coded Allergies: Food (Verified Allergy, Severe, ANAPHYLAXIS WITH RADISHES/ DIFFICULTY BREATHING HORSERADISH, 07/25/17) NSAIDs (Verified Allergy, Severe, internal bleeding, 07/25/17) Banana (Verified Allergy, Mild, 07/25/17) Sulfa Antibiotics (Verified Allergy, Unknown, Unknown, 07/25/17) Physical Exam Vital Signs Date Time Temp Pulse Resp B/P (MAP) Pulse Ox O2 Delivery O2 Flow Rate FiO2 08/08/17 19:22 81 08/08/17 19:01 84 23 91/52 97 Nasal Cannula 2.0 08/08/17 18:31 90 23 96/52 97 Nasal Cannula 2.0 08/08/17 18:01 65 26 89/53 97 Nasal Cannula 2.0 08/08/17 17:21 81 22 94/54 97 Nasal Cannula 2.0 08/08/17 17:01 70 18 101/61 97 Nasal Cannula 2.0 08/08/17 16:46 96/62 08/08/17 16:32 69 98 08/08/17 16:31 111/65 08/08/17 16:16 92/68 08/08/17 16:01 101/65 08/08/17 15:46 102/61 08/08/17 15:32 64 30 97 08/08/17 15:31 89/53 08/08/17 15:16 92/58 08/08/17 15:03 63 91/55 97 Nasal Cannula 2.0 08/08/17 15:01 91/55 08/08/17 14:48 97 Nasal Cannula 2.0 08/08/17 14:46 66 08/08/17 14:46 80/49 08/08/17 14:42 36.7 67 20 87/56 96 Nasal Cannula 2.0 08/08/17 14:42 97 Nasal Cannula 2.0 Physical Exam GENERAL: Awake, alert, well-appearing, NAD, thinning hair, nasal cannula in place. HENT: Normocephalic, atraumatic. EYES: Normal conjunctiva. Sclera non-icteric. PERRL. No anisocoria. NECK: Supple. No nuchal rigidity. FROM. RESPIRATORY: CTAB, no rhonchi, wheezing, crackles CARDIAC: RRR, no MRG ABDOMEN: Mild lower abdominal distension but soft and nontender, BS+ MSK: No chest wall TTP, no LE edema : Circumcised Gupta catheter in place NEURO: GCS 15, CN 2-12 intact, BLE paraplegia with a sensory level at T10 at the umbilicus. SKIN: No rash or jaundice noted. Medical Decision & Procedures ER Provider Diagnostic Interpretation: Radiology results as stated below per my review and radiologist interpretation: CHEST ONE VIEW PORTABLE CLINICAL HISTORY: Sepsis COMPARISON STUDY: 07/25/2017 FINDINGS: The heart is normal in size. There is a left subclavian dual-chamber central venous pacemaker present. There are thoracolumbar spinal rods. There is no failure. There is no lobar consolidation. There is minor left basilar atelectasis.[ IMPRESSION: Minor left basilar atelectatic change. No evidence of lobar consolidation Electronically signed by: Clifton Pierre M.D. 08/08/2017 3:52 PM Dictated Date/Time: 08/08/2017 3:50 PM Laboratory Results 08/08/17 14:30 Red Blood Count 5.09, Mean Corpuscular Volume 89.8, Mean Corpuscular Hemoglobin 30.1, Mean Corpuscular Hemoglobin Concent 33.5, Mean Platelet Volume 10.2, Neutrophils (%) (Auto) 80.3, Lymphocytes (%) (Auto) 10.5, Monocytes (%) (Auto) 6.9, Eosinophils (%) (Auto) 1.5, Basophils (%) (Auto) 0.0, Neutrophils # (Auto) 17.96, Lymphocytes # (Auto) 2.36, Monocytes # (Auto) 1.54, Eosinophils # (Auto) 0.34, Basophils # (Auto) 0.01 08/08/17 14:30 Test 08/08/17 14:30 08/08/17 15:12 08/08/17 15:31 08/08/17 18:00 White Blood Count 22.38 K/uL (4.8-10.8) Red Blood Count 5.09 M/uL (4.7-6.1) Hemoglobin 15.3 g/dL (14.0-18.0) Hematocrit 45.7 % (42-52) Mean Corpuscular Volume 89.8 fL (80-100) Mean Corpuscular Hemoglobin 30.1 pg (25-34) Mean Corpuscular Hemoglobin Concent 33.5 g/dl (32-36) Platelet Count 193 K/uL (130-400) Mean Platelet Volume 10.2 fL (7.4-10.4) Neutrophils (%) (Auto) 80.3 % Lymphocytes (%) (Auto) 10.5 % Monocytes (%) (Auto) 6.9 % Eosinophils (%) (Auto) 1.5 % Basophils (%) (Auto) 0.0 % Neutrophils # (Auto) 17.96 K/uL (1.4-6.5) Lymphocytes # (Auto) 2.36 K/uL (1.2-3.4) Monocytes # (Auto) 1.54 K/uL (0.11-0.59) Eosinophils # (Auto) 0.34 K/uL (0-0.5) Basophils # (Auto) 0.01 K/uL (0-0.2) RDW Standard Deviation 46.0 fL (36.4-46.3) RDW Coefficient of Variation 14.1 % (11.5-14.5) Immature Granulocyte % (Auto) 0.8 % Immature Granulocyte # (Auto) 0.17 K/uL (0.00-0.02) Prothrombin Time 12.1 SECONDS (9.0-12.0) Prothromb Time International Ratio 1.2 (0.9-1.1) Activated Partial Thromboplast Time 34.1 SECONDS (21.0-31.0) Partial Thromboplastin Ratio 1.3 Anion Gap 4.0 mmol/L (3-11) Est Creatinine Clear Calc Drug Dose 41.8 ml/min Estimated GFR () 74.8 Estimated GFR (Non- 64.6 BUN/Creatinine Ratio 20.5 (10-20) Calcium Level 9.0 mg/dl (8.5-10.1) Magnesium Level 2.0 mg/dl (1.8-2.4) Total Bilirubin 0.8 mg/dl (0.2-1) Aspartate Amino Transf (AST/SGOT) 11 U/L (15-37) Alanine Aminotransferase (ALT/SGPT) 18 U/L (12-78) Alkaline Phosphatase 70 U/L (45-117) Total Protein 6.6 gm/dl (6.4-8.2) Albumin 2.7 gm/dl (3.4-5.0) Globulin 3.9 gm/dl (2.5-4.0) Albumin/Globulin Ratio 0.7 (0.9-2) Digoxin Level 1.1 ng/ml (0.8-2.0) Urine Color YELLOW Urine Appearance CLOUDY (CLEAR) Urine pH 6.5 (4.5-7.5) Urine Specific [place] 1.011 (1.000-1.030) Urine Protein NEG (NEG) Urine Glucose (UA) NEG (NEG) Urine Ketones NEG (NEG) Urine Occult Blood TRACE (NEG) Urine Nitrite POS (NEG) Urine Bilirubin NEG (NEG) Urine Urobilinogen NEG (NEG) Urine Leukocyte Esterase LARGE (NEG) Urine WBC (Auto) >30 /hpf (0-5) Urine RBC (Auto) 0-4 /hpf (0-4) Urine Hyaline Casts (Auto) 1-5 /lpf (0-5) Urine Epithelial Cells (Auto) 0-5 /lpf (0-5) Urine Bacteria (Auto) 1+ (NEG) Bedside Lactic Acid Venous 1.10 mmol/L (0.90-1.70) Lactic Acid Level 1.2 mmol/L (0.4-2.0) Laboratory results reviewed by me Medications Administered Medications (Trade) Dose Ordered Sig/Eloisa Route Start Time Stop Time Status Last Admin Dose Admin Sodium Chloride 1,000 ml @ 999 mls/hr Q1H1M ONCE IV 08/08/17 14:59 08/08/17 15:59 DC 08/08/17 15:09 999 MLS/HR Cefepime HCl 2000 mg/Dextrose 112.5 ml @ 200 mls/hr ONE STAT IV 08/08/17 16:29 08/08/17 17:13 DC 08/08/17 17:29 200 MLS/HR Sodium Chloride 500 ml @ 500 mls/hr Q1H STAT IV 08/08/17 17:10 08/08/17 18:09 DC 08/08/17 17:30 500 MLS/HR ED Course 1450: The patient was evaluated in room A9. A complete history and physical exam was performed. 1640: Upon reexamination, the patient was resting. I discussed the test results and treatment plan with him. The patient will be evaluated for further management. 1733: Discussed the patient's case Dr. Caren Chester - [facility] Hospitalist. The patient will be evaluated for further treatment and disposition. Medical Decision Nursing notes reviewed. Ancillary studies and prior records reviewed. The patient is an 87 year old white male with a past medical history of AICD placement, HTN, COPD, colostomy, CAD with stent, HLD, ileostomy, and paraplegia after a fall who presents to the ED with a cc of constant hypotension beginning this morning. Differential diagnosis: Etiologies such as viral syndrome, otitis, pharyngitis, pneumonia, influenza, meningitis, urinary tract infection, sepsis, bacteremia, as well as others were entertained. Patient was seen and evaluated the bedside. Patient was recently admitted and discharged for UTI related sepsis secondary to indwelling catheter infection. The patient on exam is well-appearing. The patient does have history of paraplegia and has a sensory deficit below T10 at the umbilicus. Patient denies any acute symptomatic complaints currently. The patient did have some noted hypotension which is present at the bedside. No associated tachycardia. Patient denies any falls. Patient does have mild abdominal distention and does have a urinary catheter in place. The patient denies any history of bedsores. Patient did have blood work completed, urinalysis, chest x-ray. Patient chest x -ray is clear. Patient does have a white count of 22,000 with a left shift. This is grossly elevated compared to discharge. Patient's urinalysis does appear to be infected. Prior sensitivities upon review showed pseudomonas aeruginosa sensitive to cefepime. Patient was given 2 g. I did speak with the on-call hospitalist who agreed to further evaluate and treat the patient. Lactate was added. An additional 500 cc of fluid was given. A 30 cc/kg bolus was not given given the patient's prior history of an EF of 35%. Lactate was not elevated. Medication Reconcilliation Current Medication List: was personally reviewed by me Blood Pressure Screening Patient's blood pressure: Normal blood pressure Consults Time Called: 1650 Consulting Physician: Dr. Caren LEONARD Hospitalist Returned Call: [phone] Discussed the patient's case Dr. Caren LEONARD Hospitalist. The patient will be evaluated for further treatment and disposition. Impression Primary Impression: UTI (urinary tract infection) Additional Impression: Sepsis Scribe Attestation The scribe's documentation has been prepared under my direction and personally reviewed by me in its entirety. I confirm that the note above accurately reflects all work, treatment, procedures, and medical decision making performed by me. Departure Information Dispostion Being Evaluated By Hospitalist Referrals Iam Yang M.D. (PCP) Patient Instructions [facility] Problem Qualifiers Primary Impression: UTI (urinary tract infection) Urinary tract infection type: catheter-associated UTI Indwelling urinary catheter type: indwelling urethral catheter Encounter type: initial encounter Qualified Codes: T83.511A - Infection and inflammatory reaction due to indwelling urethral catheter, initial encounter; N39.0 - Urinary tract infection, site not specified Additional Impression: Sepsis Sepsis type: sepsis due to unspecified organism Qualified Codes: A41.9 - Sepsis, unspecified organism
[2017-08-08] MEDS ORDERED: MULT-878 PO (15:45)
[2017-08-08] MEDS ORDERED: MULT-993 PO (15:49)
[2017-08-08] MEDS ORDERED: LPT40 PO (15:49)
[2017-08-08] MEDS ORDERED: LNX125 PO (15:49)
[2017-08-08] MEDS ORDERED: META-38 PO (15:49)
[2017-08-08] MEDS ORDERED: LXP10 PO (15:49)
[2017-08-08] MEDS ORDERED: RIVA1.5T PO (15:49)
[2017-08-08] MEDS ORDERED: FLNIN/ NAE (15:49)
[2017-08-08] MEDS ORDERED: TIOT1SPR INH (15:49)
[2017-08-08] MEDS ORDERED: CRG3125 PO (15:49)
[2017-08-08] MEDS ORDERED: ISOS30TA35 PO (15:49)
--- NOTE | 2017-08-08 15:53 | DIAGNOSTIC IMAGING REPORT ---
CHEST ONE VIEW PORTABLE CLINICAL HISTORY: Sepsis COMPARISON STUDY: 07/25/2017 FINDINGS: The heart is normal in size. There is a left subclavian dual-chamber central venous pacemaker present. There are thoracolumbar spinal rods. There is no failure. There is no lobar consolidation. There is minor left basilar atelectasis.[ IMPRESSION: Minor left basilar atelectatic change. No evidence of lobar consolidation Electronically signed by: Clifton Pierre M.D. 08/08/2017 3:52 PM Dictated Date/Time: 08/08/2017 3:50 PM
[2017-08-08] MEDS ORDERED: HYDCR25 TOP (15:58)
[2017-08-08] MEDS ORDERED: BCTCR/30 TOP (16:04)
[2017-08-08] MEDS ORDERED: CEFEPIME IV 2,000 MG in DEXTROSE 5% 100ML 100 ML IV STA (16:29)
[2017-08-08] MEDS ORDERED: SODIUM CHLORIDE 0.9% 500ML 500 ML IV STA (17:10)
[2017-08-08] MEDS ORDERED: LACTCHW3 PO (17:53)
--- NOTE | 2017-08-08 19:31 | History and Physical ---
History & Physical Date & Time of Service: Aug 08, 2017 at 19:18 Chief Complaint: Hypotension Primary Care Physician: Iam Yang M.D. History of Present Illness This is a 87 yo M with PMHx of lower limb paraplegia, CAD, chronic indwelling cronin cath, likely copd although no formal diagnosis, severe emphysema and chronic PEs recently started on Xarelto 15 mg bid, who presents the ER with hypotension. Pt is a poor historian. Pt does have daytime nurses who evaluate him with several times a week, and manages his medications. The patient reports feeling "wonderful" currently and denies acute complaints. He denies fever, chills or sweats currently and was told that he has a UTI. His BP is low at 80s /50s s/p fluid resuscitation. He has a chronic colonization with pseudomonas and is followed by [facility]. Pt is unaware of the last time the cronin cath was changed, but notes it is scheduled for once per month. Pt was recently treated with prednisone 10day course which finished 1-2 days ago and azithromycin for his recent COPD exacerbation. He has been started on cefepime in the ER. He was given 1 L upon arrival to the ER, and then another 500mL without significant improvement in hypotension. Past Medical/Surgical History Medical Problems: (1) Back Surgery (2) Benign hypertension (3) Colostomy (4) COPD (5) Paraplegia (6) coronary artery disease with stent (7) Family history of cancer (8) Hyperlipidemia (9) Ileostomy Family History Cancer Heart disease Stroke Social History Smoking Status: Never Smoker Smokeless Tobacco Use: No Alcohol Use: none Drug Use: none Marital Status: Housing status: lives with family Occupational Status: retired Immunizations History of Influenza Vaccine: No History of Tetanus Vaccine?: Unknown Tetanus Immunization Date: Jan 22, 2009 History of Pneumococcal: Yes Pneumococcal Date: Mar 27, 2011 History of Hepatitis B Vaccine: Unknown Allergies Coded Allergies: Food (Verified Allergy, Severe, ANAPHYLAXIS WITH RADISHES/ DIFFICULTY BREATHING HORSERADISH, 07/25/17) NSAIDs (Verified Allergy, Severe, internal bleeding, 07/25/17) Banana (Verified Allergy, Mild, 07/25/17) Sulfa Antibiotics (Verified Allergy, Unknown, Unknown, 07/25/17) Home Medications Scheduled Atorvastatin (Lipitor), 40 MG PO DAILY Budesonide/Formoterol Fumarate (Symbicort 160/4.5 Inhaler ), 1 PUFF INH BID Carvedilol (Carvedilol), 3.125 MG PO BIDM Cholecalciferol (Vitamin D 1000 Unit), 1,000 INTER.UNIT PO DAILY Cranberry-Vitamin C (Cranberry/Vitamin C), 1 TAB PO DAILY Digoxin (Digoxin), 0.125 MG PO DAILY Escitalopram Oxalate (Escitalopram Oxalate), 10 MG PO DAILY Fluticasone Propionate (Fluticasone Propionate), 1 SPRAY BARRY BID Isosorbide Mononitrate Ext Rel (Imdur Ext Rel), 30 MG PO QAM Lactobacillus (Lactinex), 1 TABLET PO BID Magnesium Oxide (Mag-Ox), 400 MG PO BID Multiple Vitamins W/ Minerals (Cvs Spectravite Ultra Wom), 1 TAB PO QAM Multivitamins/Minerals (Cerovite Advanced Formula), 1 TAB PO QAM Omeprazole (Prilosec), 40 MG PO DAILY Rivaroxaban (Xarelto), 15 MG PO BID Tiotropium Urich (Spiriva Respimat), 2 PUFFS INH DAILY Scheduled PRN Albuterol Sulfate (Proair Respiclick), 1-2 PUFFS INH Q4-6 HRS PRN for Shortness of Breath Guaifenesin Ext Rel (Mucinex Ext Rel), 600 MG PO Q12 PRN for Congestion Hydrocortisone (Hydrocortisone), 1 APPLN TOP UD PRN for Neck/Back Irritation Metaxalone (Skelaxin), 800 MG PO Q8 PRN for Muscle Relaxer Mupirocin 2% (Bactroban 2%), 1 APPLN TOP TID PRN for Itching Oxybutynin Chloride (Oxybutynin Chloride), 5 MG PO QID PRN for Catheter Changes Saline (Saline Nasal [place]), 1 SPRAY BARRY BID PRN for Nasal Dryness Review of Systems Constitutional: No fever, sweats or chills Eyes: No diplopia, no worsening or blurred vision ENT: normal hearing, no trouble swallowing Respiratory: No cough, sputum, dyspnea at rest or on exertion Cardiovascular: No chest pain, tightness or palpitations Abdomen: No pain, nausea, vomiting, diarrhea or constipation - colostomy with liquid dark outs. Musculoskeletal: No joint pain, calf pain, swelling - pt unable to move lower limbs Neurologic: + parapalegia BLE, No weakness, numbness/tingling in BUE. Psychiatric: No anxiety or depression Skin: No rash or itch Physical Exam Vital Signs Date Time Temp Pulse Resp B/P (MAP) Pulse Ox O2 Delivery O2 Flow Rate FiO2 08/08/17 19:01 84 23 91/52 97 Nasal Cannula 2.0 08/08/17 18:31 90 23 96/52 97 Nasal Cannula 2.0 08/08/17 18:01 65 26 89/53 97 Nasal Cannula 2.0 08/08/17 17:21 81 22 94/54 97 Nasal Cannula 2.0 08/08/17 17:01 70 18 101/61 97 Nasal Cannula 2.0 08/08/17 16:46 96/62 08/08/17 16:32 69 98 08/08/17 16:31 111/65 08/08/17 16:16 92/68 08/08/17 16:01 101/65 08/08/17 15:46 102/61 08/08/17 15:32 64 30 97 08/08/17 15:31 89/53 08/08/17 15:16 92/58 08/08/17 15:03 63 91/55 97 Nasal Cannula 2.0 08/08/17 15:01 91/55 08/08/17 14:48 97 Nasal Cannula 2.0 08/08/17 14:46 66 08/08/17 14:46 80/49 08/08/17 14:42 36.7 67 20 87/56 96 Nasal Cannula 2.0 08/08/17 14:42 97 Nasal Cannula 2.0 General: awake, alert, no apparent distress, thin Head: Normocephalic, atraumatic ENT: PERRL, EOMI, no pharyngeal exudate, mucous membranes moist Chest: Clear to auscultation, on room air, no adventitious breath sounds Cardiac: Regular rate and rhythm, no murmur, no JVD, normal peripheral pulses, good capillary refill Abdominal: NABS x 4 quadrants, soft, +colostomy in RLQ with liquid dark outs, nontender to palpation, no rebound, guarding or tenderness Extremities: + muscle wasting BLE, no skin breakdown, Otheriwise Normal inspection, no peripheral edema or erythema, calfs nontender to palpation Psych: Normal mood and affect Neuro: AAO x 3, + motor deficits in BLE, adequate strength 5/5 in BLE, speech is clear, no peripheral sensory deficits Diagnostics Laboratory Results Results Past 24 Hours Test 08/08/17 14:30 08/08/17 15:12 08/08/17 15:31 08/08/17 18:00 Range/Units White Blood Count 22.38 4.8-10.8 K/uL Red Blood Count 5.09 4.7-6.1 M/uL Hemoglobin 15.3 14.0-18.0 g/dL Hematocrit 45.7 42-52 % Mean Corpuscular Volume 89.8 80-100 fL Mean Corpuscular Hemoglobin 30.1 25-34 pg Mean Corpuscular Hemoglobin Concent 33.5 32-36 g/dl Platelet Count 193 130-400 K/uL Mean Platelet Volume 10.2 7.4-10.4 fL Neutrophils (%) (Auto) 80.3 % Lymphocytes (%) (Auto) 10.5 % Monocytes (%) (Auto) 6.9 % Eosinophils (%) (Auto) 1.5 % Basophils (%) (Auto) 0.0 % Neutrophils # (Auto) 17.96 1.4-6.5 K/uL Lymphocytes # (Auto) 2.36 1.2-3.4 K/uL Monocytes # (Auto) 1.54 0.11-0.59 K/uL Eosinophils # (Auto) 0.34 0-0.5 K/uL Basophils # (Auto) 0.01 0-0.2 K/uL RDW Standard Deviation 46.0 36.4-46.3 fL RDW Coefficient of Variation 14.1 11.5-14.5 % Immature Granulocyte % (Auto) 0.8 % Immature Granulocyte # (Auto) 0.17 0.00-0.02 K/uL Prothrombin Time 12.1 9.0-12.0 SECONDS Prothromb Time International Ratio 1.2 0.9-1.1 Activated Partial Thromboplast Time 34.1 21.0-31.0 SECONDS Partial Thromboplastin Ratio 1.3 Sodium Level 131 136-145 mmol/L Potassium Level 3.6 3.5-5.1 mmol/L Chloride Level 95 98-107 mmol/L Carbon Dioxide Level 32 21-32 mmol/L Anion Gap 4.0 3-11 mmol/L Blood Urea Nitrogen 21 7-18 mg/dl Creatinine 1.03 0.60-1.40 mg/dl Est Creatinine Clear Calc Drug Dose 41.8 ml/min Estimated GFR () 74.8 Estimated GFR (Non- 64.6 BUN/Creatinine Ratio 20.5 10-20 Random Glucose 112 70-99 mg/dl Calcium Level 9.0 8.5-10.1 mg/dl Magnesium Level 2.0 1.8-2.4 mg/dl Total Bilirubin 0.8 0.2-1 mg/dl Aspartate Amino Transf (AST/SGOT) 11 15-37 U/L Alanine Aminotransferase (ALT/SGPT) 18 12-78 U/L Alkaline Phosphatase 70 45-117 U/L Total Protein 6.6 6.4-8.2 gm/dl Albumin 2.7 3.4-5.0 gm/dl Globulin 3.9 2.5-4.0 gm/dl Albumin/Globulin Ratio 0.7 0.9-2 Digoxin Level 1.1 0.8-2.0 ng/ml Urine Color YELLOW Urine Appearance CLOUDY CLEAR Urine pH 6.5 4.5-7.5 Urine Specific [place] 1.011 1.000-1.030 Urine Protein NEG NEG Urine Glucose (UA) NEG NEG Urine Ketones NEG NEG Urine Occult Blood TRACE NEG Urine Nitrite POS NEG Urine Bilirubin NEG NEG Urine Urobilinogen NEG NEG Urine Leukocyte Esterase LARGE NEG Urine WBC (Auto) >30 0-5 /hpf Urine RBC (Auto) 0-4 0-4 /hpf Urine Hyaline Casts (Auto) 1-5 0-5 /lpf Urine Epithelial Cells (Auto) 0-5 0-5 /lpf Urine Bacteria (Auto) 1+ NEG Bedside Lactic Acid Venous 1.10 0.90-1.70 mmol/L Lactic Acid Level 1.2 0.4-2.0 mmol/L Microbiology Results 08/08/17 Blood Culture, Received Pending 08/08/17 Blood Culture, Received Pending 08/08/17 Urine Culture, Received Pending Impression Assessment and Plan This is a 87 yo M with PMHx of lower limb paraplegia, CAD, AICD placement, chronic indwelling cronin cath, likely copd although no formal diagnosis, severe emphysema and chronic PEs recently started on Xarelto 15 mg bid, who presents the ER with hypotension. His BP is low at 80s/50s s/p fluid resuscitation. Pt was recently treated with prednisone 10day course which finished 1-2 days ago and azithromycin for his recent COPD exacerbation. UTI - possibly adrenal insufficiency with recent steroid use vs early sepsis Chronic indwelling cronin for neurogenic bladder - continue oxybutynin - pt initially hypotensive and has been resuscitated with total of 1500mL since initial presentation at 3pm, will continue on NSS at 100ml/hr x 12 hrs overnight - Leukocytosis of 22 K with left shift - may be elevated due to recent steroid use ( at time of d/c 10d ago WBC was 9) - Received IV cefepime in the ER, at this point will hold on antibiotics - UCx in process - During last admission pt with Positive urine culture for pseudomonas - likely colonized - followed by [facility]. Pt is unaware of the last time the cronin cath was changed, but notes it is scheduled for once per month. - ID consultation - Cont on lactobacillus - followed by [facility]. Pt is unaware of the last time the cronin cath was changed, but notes it is scheduled for once per month. 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 - Spiriva - continuous O2 rx to maintain O2 sat > 93% - stable at this time Chronic pulmonary embolism, Pulmonary HTN - Cont Xarelto 15mg BID (started 07/26), scheduled to finish August 14 and then be adjusted to 20 mg daily - Dr Godfrey - recommended outpatient workup for cancer eg. colonoscopy and hypercoagulable workup (will defer to PCP) Moderately enlarged subcarinal lymph node which is nonspecific - recommend follow up CT in 6 months. Paraplegia BLE - Frequent turn and repo q2h - Hx of spinal trauma ~ 15 years prior. - patient paralyzed from the waist down DVT ppx: gosia Cash, scds Code: DNR, the patient has an AICD Disposition: From home, lives with , PT/OT consults, has home nursing arranged I personally interviewed and examined the patient. I agree with history of present illness and physical exam mentioned above, I also performed my own history taking and examination. Past medical history and review of system has been obtained by myself I reviewed all pertinent labs and studies Reviewed current medications I discussed and formulated of the assessment and plan mentioned above. Please refer to the Summary mentioned below. 87-year-old man with past medical history of traumatic paraplegia, CAD with indwelling Cronin catheter and recurrent UTI, pulmonary embolism on Xarelto, COPD and severe emphysema, recently patient was treated with prednisone long tapering dose and azithromycin. Was found to have hypotension but patient is a symptomatic. Upon evaluation in ED he was found to have leukocytosis, he finished his prednisone 2 days ago, also was found to be hypotensive, does not have any other symptoms. His Cronin catheter was recently changed 2 days ago does not seem to be infected. Yet his urine has been always positive. In ED he received 1 dose of cefepime, will hold on any further antibiotics, will obtain cortisol level rule out relative adrenal insufficiency, IV fluid hydration will, blood cultures and urine cultures. Will reevaluate patient in a.m., consult infectious diseases. General Appearance: not in acute distress Eyes: normal Sclerae, extraocular muscle intact ENT: hearing grossly normal Neck: supple Respiratory/Chest: normal air entry bilateral ,no respiratory distress, no accessory muscle use Cardiovascular: regular rate, rhythm, no murmur Abdomen: non tender, soft, no masses, Cronin catheter appears in place, no discharge around Cronin exit Extremities: no edema has atrophy in bilateral lower extremities, musculoskeletal: no significant swelling or inflammation in any joint Neurologic/Psychiatric: Awake alert oriented times place and person moves all extremities sensation intact cranial nerves II-12 appear to be intact Skin: normal color, warm/dry, no rash Nicholas Chester MD, [facility] Resuscitation Status VTE Prophylaxis Will order VTE Prophylaxis: Yes Reason for no VTE drug order: Treatment not indicated (on xarelto)
[2017-08-08] MEDS ORDERED: SYMIN160 INH (19:47)
[2017-08-08] MEDS ORDERED: ONDANSETRON INJ 2 MG/ML 2 ML VIAL IV PRN (20:00)
[2017-08-08] MEDS ORDERED: GUAIFENESIN 600 MG TABCR PO PRN (20:00)
[2017-08-08] MEDS ORDERED: ACETAMINOPHEN 325 MG TAB PO PRN (20:00)
[2017-08-08] MEDS ORDERED: HYDROCORTISONE 2.5% CR 30 GM TUBE EXT PRN (20:00)
[2017-08-08] MEDS ORDERED: SODIUM CHLORIDE 0.65% NA SOLN 45 ML (OCEAN) NAE PRN (20:00)
[2017-08-08] MEDS ORDERED: METAXALONE 800 MG TAB PO PRN (20:00)
[2017-08-08] MEDS ORDERED: CEFEPIME IV 2,000 MG in DEXTROSE 5% 100ML 100 ML IV SCH (22:00)
[2017-08-08] MEDS: SODIUM CHLORIDE 0.9% 1000ML 1,000 ML IV SCH (22:21)
[2017-08-08] MEDS: BUDESONIDE/FORMOTEROL FUMARATE 160/4.5 60 PUFFS/INHALER INH SCH (22:21)
[2017-08-08] MEDS: LACTOBACILLUS ACIDOPHILUS (FLORANEX) TAB PO SCH (22:21)
[2017-08-08] MEDS: RIVAROXABAN TAB 15 MG TAB PO SCH (22:22)
[2017-08-08] MEDS: MAGNESIUM OXIDE 400 MG TAB PO SCH (22:22)
[2017-08-08] MEDS: FLUTICASONE PROPIONATE NA SPR 16 GM BTL NAE SCH (22:22)
[2017-08-08 22:30] VITALS: BP 98/54; PULSE 67; TEMP 36.9; O2SAT 96; Ht 170.2 cm; Wt 59.0 kg
[2017-08-08 23:15] VITALS: BP 117/63; PULSE 72; TEMP 36.6; O2SAT 97
[2017-08-09] VITALS (9 sets, daily range): BP systolic 101–157; BP diastolic 59–87; PULSE 64–80; TEMP 36.4–37.2; O2SAT 92–99
[2017-08-09 06:51] LABS: BASO % 0.2 %; BASO ABS # 0.02 K/uL (0-0.2); EOS % 1.6 %; EOS ABS # 0.21 K/uL (0-0.5); HEMATOCRIT 43.3 % (42-52); HEMOGLOBIN 14.1 g/dL (14.0-18.0); IG# 0.12 K/uL (0.00-0.02); LYMPH % 12.3 %; LYMPH ABS # 1.57 K/uL (1.2-3.4); MEAN CELL VOLUME 90.8 fL (80-100); MEAN CORPUSCULAR HEMOGLOBIN 29.6 pg (25-34); MEAN CORPUSCULAR HGB CONC 32.6 g/dl (32-36); MEAN PLATELET VOLUME 9.9 fL (7.4-10.4); MONO % 8.2 %; MONO ABS # 1.05 K/uL (0.11-0.59); NEUT % 76.8 %; NEUT ABS # 9.81 K/uL (1.4-6.5); PLATELET COUNT 173 K/uL (130-400); RED CELL DISTRIBUTION WIDTH CV 14.2 % (11.5-14.5); RED CELL DISTRIBUTION WIDTH SD 46.7 fL (36.4-46.3); WHITE BLOOD COUNT 12.78 K/uL (4.8-10.8)
[2017-08-09 07:31] LABS: CALCIUM 8.4 mg/dl (8.5-10.1); CREATININE 1.01 mg/dl (0.60-1.40); POTASSIUM 4.1 mmol/L (3.5-5.1)
[2017-08-09] MEDS ORDERED: CEROVITE ADV FORMULA TAB PO SCH (09:00)
[2017-08-09] MEDS: CEROVITE ADV FORMULA TAB PO SCH (09:05)
[2017-08-09] MEDS: ESCITALOPRAM OXALATE 10 MG TAB PO SCH (09:05)
[2017-08-09] MEDS: PANTOprazole SOD 40 MG TAB PO SCH (09:05)
[2017-08-09] MEDS: BUDESONIDE/FORMOTEROL FUMARATE 160/4.5 60 PUFFS/INHALER INH SCH ×2 (09:05→20:35)
[2017-08-09] MEDS: TIOTROPIUM BROMIDE 5 PUFF/90 MCG INH INH SCH (09:05)
[2017-08-09] MEDS: RIVAROXABAN TAB 15 MG TAB PO SCH ×2 (09:05→20:37)
[2017-08-09] MEDS: LACTOBACILLUS ACIDOPHILUS (FLORANEX) TAB PO SCH ×2 (09:05→20:36)
[2017-08-09] MEDS: ATORVASTATIN 40 MG TAB PO SCH (09:05)
[2017-08-09] MEDS: MAGNESIUM OXIDE 400 MG TAB PO SCH ×2 (09:05→20:37)
[2017-08-09] MEDS: FLUTICASONE PROPIONATE NA SPR 16 GM BTL NAE SCH ×2 (09:05→20:36)
[2017-08-09] MEDS: CHOLECALCIFEROL 1000 INTER.UNIT TAB PO SCH (09:05)
[2017-08-09] MEDS: SODIUM CHLORIDE 0.9% 1000ML 1,000 ML IV SCH (09:05)
--- NOTE | 2017-08-09 10:11 | Clinical Documentation Query ---
CLINICAL DOCUMENTATION QUERY 87-y/o male with history of UTI's and chronic indwelling Gupta who presents the ER with hypotension. In your clinical opinion is this patient being managed for: ( ) Gupta catheter associated UTI causing sepsis. ( x ) Not Agree - the pseudomonas that grew is colonization / asymptomatic bacteruria ( ) Other explanation of clinical findings (Please Explain. If no explanation given, this would be considered a no response.) ( ) Unable to determine ( ) Need to Discuss (Please call CDS via extension or qliq. If no interaction occurs this is considered a no response.) The medical record reflects the following clinical findings, treatment, and risk factors. Clinical Indicators: UTI and sepsis Treatment: ID consult, IV Cefepime, IVF resuscitation Risk Factors: Chronic indwelling Gupta Please clarify and document your clinical opinion in the progress notes and discharge summary. Terms such as "probable", "suspected", "likely", "questionable", "possible", or "still to be ruled out" are acceptable. IF IN AGREEMENT, YOU MUST DOCUMENT ABOVE DIAGNOSTIC STATEMENT IN DAILY PROGRESS NOTES AND DISCHARGE SUMMARY. This document is not part of the patient's record. Thank You, Shiva Levi RN [phone] & via [email or web address]
--- NOTE | 2017-08-09 10:49 | Medical Consult ---
Consultation Date of Consultation: Aug 09, 2017. Attending Physician: Edwin Meier MD Reason for Consultation: UTI, sepsis History of Present Illness 87-year-old male with history of paraplegia, history of indwelling Gupta catheter, chronic colonization with Pseudomonas, COPD, recent treatment with prednisone and azithromycin for exacerbation of COPD, who was sent to the hospital because of hypotension. Patient was found to have significant hypotension and required significant amount of fluid resuscitation. Blood pressure better this morning. Patient absolutely denies any complaints. Denies abdominal or flank pain. No shortness of breath or cough. Denies any fever and has been afebrile. Blood in urine cultures are pending. Urinalysis with white blood cells. Not clear when the Gupta was last changed. Patient was given single dose of cefepime in the emergency room, and has been off antibiotics overnight. Past Medical/Surgical History Medical Problems: (1) Acute hypercapnic respiratory failure Status: Acute (2) Bronchitis Status: Acute (3) C. difficile diarrhea Status: Acute (4) Catheter-associated urinary tract infection Status: Acute (5) Change in mental status Status: Acute (6) Chronic indwelling Gupta catheter Status: Acute (7) Confusion Status: Acute (8) Dehydration Status: Acute (9) Fall Status: Acute (10) Fever Status: Acute (11) Foot contusion Status: Acute (12) Hypoxia Status: Acute (13) Left ankle sprain Status: Acute (14) Lightheadedness Status: Acute (15) Malfunction of Gupta catheter Status: Acute (16) Nausea Status: Acute (17) Paresthesia Status: Acute (18) Pressure ulcer Status: Acute (19) Pressure ulcer Status: Acute (20) Pulmonary edema Status: Acute (21) Sepsis Status: Acute (22) Transient hypotension Status: Acute (23) Urinary tract infection Status: Acute (24) Weakness Status: Acute Medical Problems: (1) Back Surgery (2) Benign hypertension (3) Colostomy (4) COPD (5) COPD exacerbation (6) coronary artery disease with stent (7) Family history of cancer (8) Hyperlipidemia (9) Ileostomy (10) Paraplegia Family History Cancer Heart disease Stroke Social History Smoking Status: Never Smoker Smokeless Tobacco Use: No Alcohol Use: none Drug Use: none Marital Status: Housing Status: lives with family Occupation Status: retired Allergies Coded Allergies: Food (Verified Allergy, Severe, ANAPHYLAXIS WITH RADISHES/ DIFFICULTY BREATHING HORSERADISH, 07/25/17) NSAIDs (Verified Allergy, Severe, internal bleeding, 07/25/17) Banana (Verified Allergy, Mild, 07/25/17) Sulfa Antibiotics (Verified Allergy, Unknown, Unknown, 07/25/17) Current Inpatient Medications Current Inpatient Medications Medications (Trade) Dose Ordered Sig/Eloisa Route Start Time Stop Time Status Last Admin Dose Admin Acetaminophen (Tylenol Tab) 650 mg Q4H PRN PO 08/08/17 20:00 09/07/17 19:59 Ondansetron HCl (Zofran Inj) 4 mg Q6H PRN IV 08/08/17 20:00 09/07/17 19:59 Atorvastatin Calcium (Lipitor Tab) 40 mg DAILY PO 08/09/17 09:00 09/08/17 08:59 08/09/17 09:05 40 MG Budesonide/ Formoterol Fumarate (Symbicort 160/ 4.5 Inh) 1 puffs BID INH 08/08/17 21:00 09/07/17 20:59 08/09/17 09:05 1 PUFFS Cholecalciferol (Vitamin D Tab) 1,000 inter.unit DAILY PO 08/09/17 09:00 09/08/17 08:59 08/09/17 09:05 1,000 INTER.UNIT Escitalopram Oxalate (Lexapro Tab) 10 mg DAILY PO 08/09/17 09:00 09/08/17 08:59 08/09/17 09:05 10 MG Fluticasone Propionate (Flonase Nasal [place]) 1 sprays BID BARRY 08/08/17 21:00 09/07/17 20:59 08/09/17 09:05 1 SPRAYS Guaifenesin (Mucinex Contr Rel Tab) 600 mg Q12 PRN PO 08/08/17 20:00 09/07/17 19:59 Hydrocortisone (Hydrocortisone 2.5% Crm) 1 appln DAILY PRN EXT 08/08/17 20:00 09/07/17 19:59 Lactobacillus Acidophilus (Floranex Tab) 1 tab BID PO 08/08/17 21:00 09/07/17 20:59 08/09/17 09:05 1 TAB Magnesium Oxide (Mag-Ox Tab) 400 mg BID PO 4/25/18 21:00 09/07/17 20:59 08/09/17 09:05 400 MG Metaxalone (Skelaxin Tab) 800 mg Q8H PRN PO 08/08/17 20:00 09/07/17 19:59 Multivitamins/ Minerals (Multivitamin W/ Minerals Tab) 1 tab QAM PO 08/09/17 09:00 09/08/17 08:59 08/09/17 09:05 1 TAB Rivaroxaban (Xarelto Tab) 15 mg BID PO 08/08/17 21:00 08/14/17 23:59 08/09/17 09:05 15 MG Sodium Chloride ([place] Nasal [place]) 1 sprays BID PRN BARRY 08/08/17 20:00 09/07/17 19:59 Pantoprazole Sodium (Protonix Tab) 40 mg QAM PO 08/09/17 09:00 09/08/17 08:59 08/09/17 09:05 40 MG Tiotropium [place] (Spiriva Handihaler Inhaler) 1 puff QAM INH 08/09/17 09:00 09/08/17 08:59 08/09/17 09:05 1 PUFF Rivaroxaban (Xarelto Tab) 20 mg DAILYBD PO 08/15/17 16:00 09/14/17 15:59 Review of Systems All systems were reviewed and are negative except as per HPI Physical Exam Date Time Temp Pulse Resp B/P (MAP) Pulse Ox O2 Delivery O2 Flow Rate FiO2 08/09/17 07:46 36.4 69 18 144/73 (96) 99 Nasal Cannula 2.0 08/09/17 04:00 36.9 20 125/72 (89) 99 Nasal Cannula 2.0 08/09/17 04:00 Nasal Cannula 2.0 08/09/17 00:00 97 Nasal Cannula 2.0 08/08/17 23:15 36.6 72 20 117/63 (81) 97 Nasal Cannula 2.0 08/08/17 22:30 36.9 67 18 98/54 96 Nasal Cannula 2.0 08/08/17 20:31 71 18 101/56 96 2.0 08/08/17 20:06 66 08/08/17 20:01 92/48 08/08/17 19:36 78 18 87/55 96 Nasal Cannula 2.0 08/08/17 19:33 87/55 08/08/17 19:32 66/36 08/08/17 19:22 81 08/08/17 19:06 84 31 08/08/17 19:01 84 23 91/52 97 Nasal Cannula 2.0 08/08/17 18:31 90 23 96/52 97 Nasal Cannula 2.0 08/08/17 18:01 65 26 89/53 97 Nasal Cannula 2.0 08/08/17 17:21 81 22 94/54 97 Nasal Cannula 2.0 08/08/17 17:01 70 18 101/61 97 Nasal Cannula 2.0 08/08/17 16:46 96/62 08/08/17 16:32 69 98 08/08/17 16:31 111/65 08/08/17 16:16 92/68 08/08/17 16:01 101/65 08/08/17 15:46 102/61 08/08/17 15:32 64 30 97 08/08/17 15:31 89/53 08/08/17 15:16 92/58 08/08/17 15:03 63 91/55 97 Nasal Cannula 2.0 08/08/17 15:01 91/55 08/08/17 14:48 97 Nasal Cannula 2.0 08/08/17 14:46 66 08/08/17 14:46 80/49 08/08/17 14:42 36.7 67 20 87/56 96 Nasal Cannula 2.0 08/08/17 14:42 97 Nasal Cannula 2.0 General Appearance: WD/WN, no apparent distress Head: normocephalic, atraumatic Eyes: normal inspection, EOMI, sclerae normal ENT: normal ENT inspection, hearing grossly normal, pharynx normal Neck: supple, no adenopathy, thyroid normal, trachea midline Respiratory/Chest: chest non-tender, lungs clear, normal breath sounds, no respiratory distress Cardiovascular: regular rate, rhythm, no gallop, no murmur Abdomen/GI: normal bowel sounds, non tender, soft, no organomegaly Genitourinary - Male: + pertinent finding (Gupta catheter in place with clear urine) Back: normal inspection, no CVA tenderness Extremities/Musculoskelatal: normal inspection, no calf tenderness, non-tender Neurologic/Psych: alert, oriented x 3, + pertinent finding (Lower extremity paraplegia) Skin: normal color, warm/dry, no rash Lymphatic: no adenopathy Laboratory Results Date/Time Source Procedure Growth Status 08/08/17 15:35 Blood Blood Culture Pending Received 08/08/17 15:34 Blood Blood Culture Pending Received 08/08/17 15:12 Urine,Catheterized Urine Culture Pending Received Last 24 Hours Test 08/08/17 14:30 08/08/17 15:12 08/08/17 15:31 08/08/17 18:00 White Blood Count 22.38 K/uL Red Blood Count 5.09 M/uL Hemoglobin 15.3 g/dL Hematocrit 45.7 % Mean Corpuscular Volume 89.8 fL Mean Corpuscular Hemoglobin 30.1 pg Mean Corpuscular Hemoglobin Concent 33.5 g/dl Platelet Count 193 K/uL Mean Platelet Volume 10.2 fL Neutrophils (%) (Auto) 80.3 % Lymphocytes (%) (Auto) 10.5 % Monocytes (%) (Auto) 6.9 % Eosinophils (%) (Auto) 1.5 % Basophils (%) (Auto) 0.0 % Neutrophils # (Auto) 17.96 K/uL Lymphocytes # (Auto) 2.36 K/uL Monocytes # (Auto) 1.54 K/uL Eosinophils # (Auto) 0.34 K/uL Basophils # (Auto) 0.01 K/uL RDW Standard Deviation 46.0 fL RDW Coefficient of Variation 14.1 % Immature Granulocyte % (Auto) 0.8 % Immature Granulocyte # (Auto) 0.17 K/uL Prothrombin Time 12.1 SECONDS Prothromb Time International Ratio 1.2 Activated Partial Thromboplast Time 34.1 SECONDS Partial Thromboplastin Ratio 1.3 Sodium Level 131 mmol/L Potassium Level 3.6 mmol/L Chloride Level 95 mmol/L Carbon Dioxide Level 32 mmol/L Anion Gap 4.0 mmol/L Blood Urea Nitrogen 21 mg/dl Creatinine 1.03 mg/dl Est Creatinine Clear Calc Drug Dose 41.8 ml/min Estimated GFR () 74.8 Estimated GFR (Non- 64.6 BUN/Creatinine Ratio 20.5 Random Glucose 112 mg/dl Calcium Level 9.0 mg/dl Magnesium Level 2.0 mg/dl Total Bilirubin 0.8 mg/dl Aspartate Amino Transf (AST/SGOT) 11 U/L Alanine Aminotransferase (ALT/SGPT) 18 U/L Alkaline Phosphatase 70 U/L Total Protein 6.6 gm/dl Albumin 2.7 gm/dl Globulin 3.9 gm/dl Albumin/Globulin Ratio 0.7 Random Cortisol 3.22 mcg/dl Digoxin Level 1.1 ng/ml Urine Color YELLOW Urine Appearance CLOUDY Urine pH 6.5 Urine Specific [place] 1.011 Urine Protein NEG Urine Glucose (UA) NEG Urine Ketones NEG Urine Occult Blood TRACE Urine Nitrite POS Urine Bilirubin NEG Urine Urobilinogen NEG Urine Leukocyte Esterase LARGE Urine WBC (Auto) >30 /hpf Urine RBC (Auto) 0-4 /hpf Urine Hyaline Casts (Auto) 1-5 /lpf Urine Epithelial Cells (Auto) 0-5 /lpf Urine Bacteria (Auto) 1+ Bedside Lactic Acid Venous 1.10 mmol/L Lactic Acid Level 1.2 mmol/L Test 08/09/17 06:13 08/09/17 10:25 White Blood Count 12.78 K/uL Red Blood Count 4.77 M/uL Hemoglobin 14.1 g/dL Hematocrit 43.3 % Mean Corpuscular Volume 90.8 fL Mean Corpuscular Hemoglobin 29.6 pg Mean Corpuscular Hemoglobin Concent 32.6 g/dl Platelet Count 173 K/uL Mean Platelet Volume 9.9 fL Neutrophils (%) (Auto) 76.8 % Lymphocytes (%) (Auto) 12.3 % Monocytes (%) (Auto) 8.2 % Eosinophils (%) (Auto) 1.6 % Basophils (%) (Auto) 0.2 % Neutrophils # (Auto) 9.81 K/uL Lymphocytes # (Auto) 1.57 K/uL Monocytes # (Auto) 1.05 K/uL Eosinophils # (Auto) 0.21 K/uL Basophils # (Auto) 0.02 K/uL RDW Standard Deviation 46.7 fL RDW Coefficient of Variation 14.2 % Immature Granulocyte % (Auto) 0.9 % Immature Granulocyte # (Auto) 0.12 K/uL Sodium Level 136 mmol/L Potassium Level 4.1 mmol/L Chloride Level 104 mmol/L Carbon Dioxide Level 28 mmol/L Anion Gap 4.0 mmol/L Blood Urea Nitrogen 21 mg/dl Creatinine 1.01 mg/dl Est Creatinine Clear Calc Drug Dose 43.8 ml/min Estimated GFR () 76.6 Estimated GFR (Non- 66.1 BUN/Creatinine Ratio 20.5 Random Glucose 99 mg/dl Calcium Level 8.4 mg/dl [~ rep ct add3]] CHEST ONE VIEW PORTABLE CLINICAL HISTORY: Sepsis COMPARISON STUDY: 07/25/2017 FINDINGS: The heart is normal in size. There is a left subclavian dual-chamber central venous pacemaker present. There are thoracolumbar spinal rods. There is no failure. There is no lobar consolidation. There is minor left basilar atelectasis.[ IMPRESSION: Minor left basilar atelectatic change. No evidence of lobar consolidation Electronically signed by: Clifton Pierre M.D. 08/08/2017 3:52 PM Dictated Date/Time: 08/08/2017 3:50 PM The status of this report is Signed. Draft = Not yet reviewed or approved by Radiologist. Signed = Reviewed and approved by Radiologist. <AttendingPhy></AttendingPhy> <FamilyPhy>Iam Yang M.D.</FamilyPhy> < PrimaryPhy>Iam Yang M.D.</PrimaryPhy> <UnitNumber>[id number]</UnitNumber> <VisitNumber>[id number]</VisitNumber> <PatientName>DILIADAMIEN</ PatientName> <DateOfBirth>1930</DateOfBirth> <Location>[facility]</Location> < ServiceDate>08/08/17</ServiceDate> <MNE>ESINDI</MNE> <OrderingPhy>Ned Chaves M.D.</OrderingPhy> <OrderingPhyMNE>f rep ord dr leon</OrderingPhyMNE> < DictatingPhyMNE>f rep dict dr leon</DictatingPhyMNE> <CCListMNE>f rep ct rodneye</ CCListMNE> <AdmittingPhyMNE>f pt admit dr leon</AdmittingPhyMNE> <AttendingPhyMNE >f pt attend dr leon</AttendingPhyMNE> <ConsultingPhyMNE>f pt consult dr leon</ConsultingPhyMNE> <FamilyPhyMNE>f pt fam dr leon</FamilyPhyMNE> <OtherPhyMNE>f pt other dr leon</OtherPhyMNE> < PrimaryPhyMNE>f pt prim care dr leon</PrimaryPhyMNE> <ReferringPhyMNE>f pt referring dr leon</ReferringPhyMNE> Assessment & Plan 87-year-old male with chronic indwelling Gupta catheter now presents with significant hypotension, better with fluid resuscitation, and no localizing signs or symptoms evident. Given benign clinical appearance, would continue to hold antibiotics for now pending further culture results. I have ordered procalcitonin to evaluate for possible severe bacterial infection. Will follow.
--- NOTE | 2017-08-09 22:27 | Progress Note ---
Subjective Date of Service: Aug 09, 2017. Subjective Pt evaluation today including: conversation w/ patient, physical exam, chart review, lab review, review of studies, review of inpatient medication list Pain: denies PO Intake: eating fine Voiding: cronin catheter in place tele stable overnight he denies ALL complaints he cannot tell me how he got to the hospital or why he is here at one point he says "well, maybe my thought I was confused" staff report no issues Problem List Medical Problems: (1) Acute hypercapnic respiratory failure Status: Acute (2) Bronchitis Status: Acute (3) C. difficile diarrhea Status: Acute (4) Catheter-associated urinary tract infection Status: Acute (5) Change in mental status Status: Acute (6) Chronic indwelling Cronin catheter Status: Acute (7) Confusion Status: Acute (8) Dehydration Status: Acute (9) Fall Status: Acute (10) Fever Status: Acute (11) Foot contusion Status: Acute (12) Hypoxia Status: Acute (13) Left ankle sprain Status: Acute (14) Lightheadedness Status: Acute (15) Malfunction of Cronin catheter Status: Acute (16) Nausea Status: Acute (17) Paresthesia Status: Acute (18) Pressure ulcer Status: Acute (19) Pressure ulcer Status: Acute (20) Pulmonary edema Status: Acute (21) Sepsis Status: Acute (22) Transient hypotension Status: Acute (23) Urinary tract infection Status: Acute (24) Weakness Status: Acute Review of Systems Constitutional: No fever, No chills ENT: No nasal symptoms Respiratory: No cough, No shortness of breath Cardiac: No chest pain Abdomen: + problem reported (ileostomy with liquid stool - no change in comparison to baseline), No pain, No nausea, No vomiting Musculoskeletal: No joint pain Neurologic: + weakness (b/l legs - paraplegia ) Skin: No rash Objective Vital Signs Date Time Temp Pulse Resp B/P (MAP) Pulse Ox O2 Delivery O2 Flow Rate FiO2 08/09/17 20:00 96 Nasal Cannula 2.0 08/09/17 19:30 37.1 71 16 138/72 (94) 96 Nasal Cannula 2.0 08/09/17 16:00 92 Room Air 08/09/17 15:08 37.2 80 16 137/71 (93) 92 Room Air 08/09/17 12:00 Nasal Cannula 2.0 08/09/17 11:09 36.8 64 18 101/59 (73) 97 Nasal Cannula 2.0 08/09/17 08:00 Nasal Cannula 2.0 08/09/17 07:46 36.4 69 18 144/73 (96) 99 Nasal Cannula 2.0 08/09/17 04:00 36.9 20 125/72 (89) 99 Nasal Cannula 2.0 08/09/17 04:00 Nasal Cannula 2.0 08/09/17 00:00 97 Nasal Cannula 2.0 08/08/17 23:15 36.6 72 20 117/63 (81) 97 Nasal Cannula 2.0 08/08/17 22:30 36.9 67 18 98/54 96 Nasal Cannula 2.0 Physical Exam General Appearance: no apparent distress, + thin ENT: pharynx normal Neck: no JVD Respiratory/Chest: lungs clear, no respiratory distress, no accessory muscle use Cardiovascular: regular rate, rhythm, no gallop, no murmur Abdomen: normal bowel sounds, non tender, soft, no organomegaly, + pertinent finding (ostomy bag in place with liquid stool) Extremities: no pedal edema Neurologic/Psychiatric: alert (knows it is 2017 and that we are at the hospital but doesn't know the day (Sunday)), + pertinent finding (paraplegia; muscle atrophy all legs) Skin: no rash Laboratory Results Last 24 Hours Test 08/09/17 06:13 08/09/17 10:25 White Blood Count 12.78 K/uL Red Blood Count 4.77 M/uL Hemoglobin 14.1 g/dL Hematocrit 43.3 % Mean Corpuscular Volume 90.8 fL Mean Corpuscular Hemoglobin 29.6 pg Mean Corpuscular Hemoglobin Concent 32.6 g/dl Platelet Count 173 K/uL Mean Platelet Volume 9.9 fL Neutrophils (%) (Auto) 76.8 % Lymphocytes (%) (Auto) 12.3 % Monocytes (%) (Auto) 8.2 % Eosinophils (%) (Auto) 1.6 % Basophils (%) (Auto) 0.2 % Neutrophils # (Auto) 9.81 K/uL Lymphocytes # (Auto) 1.57 K/uL Monocytes # (Auto) 1.05 K/uL Eosinophils # (Auto) 0.21 K/uL Basophils # (Auto) 0.02 K/uL RDW Standard Deviation 46.7 fL RDW Coefficient of Variation 14.2 % Immature Granulocyte % (Auto) 0.9 % Immature Granulocyte # (Auto) 0.12 K/uL Sodium Level 136 mmol/L Potassium Level 4.1 mmol/L Chloride Level 104 mmol/L Carbon Dioxide Level 28 mmol/L Anion Gap 4.0 mmol/L Blood Urea Nitrogen 21 mg/dl Creatinine 1.01 mg/dl Est Creatinine Clear Calc Drug Dose 43.8 ml/min Estimated GFR () 76.6 Estimated GFR (Non- 66.1 BUN/Creatinine Ratio 20.5 Random Glucose 99 mg/dl Calcium Level 8.4 mg/dl Procalcitonin < 0.05 ng/ml Assessment and Plan 87yo male - 1. hypotension - resolved with IVF. Although cortisol level was low, he was recently on prednisone, and thus the results would not be accurate. The low sodium (and subsequent resolution of such with IV fluids) would argue he was volume depleted at admission. This easily could have been the reason he was mildly hypotensive yesterday. It is uncertain why he was brought to the ER in the first place. Will need to obtain historical information from his family. Today he appears clinically well. 2. concern for sepsis - unlikely; blood cultures negative, no fever, and procalcitonin negative. Although he had an elevated WBC count he was recently on steroids and it could have been from such. Urine cx is growing a GNR, but this could represent colonization/asymptomatic bacteriuria given his chronic cronin. If the pathogen ends up being pseudomonas he has had such on NUMEROUS urine cx' s suggesting colonization. Dr. Carolina has seen and agrees we should observe off of antibiotics. 3. chronic hypoxic respiratory failure - apparently at the conclusion of his last hospitalization he was placed on NC O2. CTA from that admission showed severe emphysematous changes and chronic PEs. He remains stable on small amount of NC O2. 4. acquired paraplegic status - due to prior accident (fell off a roof). 5. chronic indwelling cronin catheter 2nd to neurogenic bladder - I am uncertain the last time the catheter was exchanged; will ask nursing to investigate such. 6. recently dx PEs - he previously took xarelto 15mg BID. This should be a 21- day course followed by 20mg once daily thereafter. Records from prior admission show he started on xarelto on 07/26/17. Cont 15mg BID until 21-day course is completed. 7. h/o CAD - noted. Cont BB, statin. Uncertain why he is not on asa or plavix. 8. recent COPD exacerbation - resolved. Cont home inhalers. Cont [place] O2. 9. hyponatremia - resolved with IVF suggesting he has volume depleted at presentation. 10. CKD stage 3 - creatinine at baseline. 11. ?metabolic encephalopathy vs baseline cognitive impairment - will need to check with family to see what his baseline is. 12. ileostomy - records suggest he had c. diff colitis (severe) leading to subtotal colectomy and ileostomy formation. 13. GERD - PPI. 14. digoxin use - cardiology records suggest he has had a flutter in the distant past. Digoxin for rate control? Tele has showed NSR since admission. PT, OT consults requested to assist with dispo planning if cultures are negative tomorrow and he is feeling well and family reports he is at baseline he can likely d/c home Continued [facility] stay due to: other (r/o sepsis ) Discharge planning: home with home health
[2017-08-10] VITALS: O2SAT 99
[2017-08-10 04:00] VITALS: BP 150/78; PULSE 70; TEMP 36.9; O2SAT 99
[2017-08-10 06:40] LABS: BASO % 0.2 %; BASO ABS # 0.02 K/uL (0-0.2); EOS % 2.6 %; EOS ABS # 0.26 K/uL (0-0.5); HEMATOCRIT 44.1 % (42-52); IG# 0.09 K/uL (0.00-0.02); LYMPH % 15.4 %; LYMPH ABS # 1.55 K/uL (1.2-3.4); MEAN CELL VOLUME 89.6 fL (80-100); MEAN CORPUSCULAR HEMOGLOBIN 30.5 pg (25-34); MEAN PLATELET VOLUME 9.6 fL (7.4-10.4); MONO % 8.5 %; MONO ABS # 0.85 K/uL (0.11-0.59); NEUT % 72.4 %; NEUT ABS # 7.27 K/uL (1.4-6.5); PLATELET COUNT 152 K/uL (130-400); RED CELL DISTRIBUTION WIDTH SD 45.6 fL (36.4-46.3); WHITE BLOOD COUNT 10.04 K/uL (4.8-10.8)
[2017-08-10 07:11] LABS: CALCIUM 8.2 mg/dl (8.5-10.1); CREATININE 0.96 mg/dl (0.60-1.40); POTASSIUM 3.9 mmol/L (3.5-5.1)
[2017-08-10 08:20] VITALS: BP 110/66; PULSE 78; TEMP 36.9; O2SAT 95
[2017-08-10] MEDS: ATORVASTATIN 40 MG TAB PO SCH (08:37)
[2017-08-10] MEDS: FLUTICASONE PROPIONATE NA SPR 16 GM BTL NAE SCH (08:37)
[2017-08-10] MEDS: TIOTROPIUM BROMIDE 5 PUFF/90 MCG INH INH SCH (08:37)
[2017-08-10] MEDS: BUDESONIDE/FORMOTEROL FUMARATE 160/4.5 60 PUFFS/INHALER INH SCH (08:37)
[2017-08-10] MEDS: PANTOprazole SOD 40 MG TAB PO SCH (08:38)
[2017-08-10] MEDS: CEROVITE ADV FORMULA TAB PO SCH (08:38)
[2017-08-10] MEDS: MAGNESIUM OXIDE 400 MG TAB PO SCH (08:38)
[2017-08-10] MEDS: RIVAROXABAN TAB 15 MG TAB PO SCH (08:38)
[2017-08-10] MEDS: ESCITALOPRAM OXALATE 10 MG TAB PO SCH (08:38)
[2017-08-10] MEDS: CHOLECALCIFEROL 1000 INTER.UNIT TAB PO SCH (08:38)
[2017-08-10] MEDS: LACTOBACILLUS ACIDOPHILUS (FLORANEX) TAB PO SCH (11:40)
[2017-08-10 12:00] VITALS: BP 160/83; PULSE 78; TEMP 37.1; O2SAT 95
[2017-08-10] MEDS ORDERED: RIVA1.5T PO (12:09)
[2017-08-10] MEDS ORDERED: XRL20 PO (12:09)
[2017-08-10] MEDS ORDERED: ISOS30TA35 PO (12:09)
--- NOTE | 2017-08-10 12:13 | Discharge Instructions ---
Discharge Instructions Date of Service Aug 10, 2017. Admission Reason for Admission: Hypotension Discharge Discharge Diagnosis / Problem: Hypotension,dehydration Discharge Goals Goal(s): Improve disease control, Diagnostic testing, Therapeutic intervention Activity Recommendations Activity Limitations: resume your previous activity . Instructions / Follow-Up Instructions / Follow-Up You were admitted with low blood pressure which may have been due to recently stopping prednisone, but could also have been from not drinking enough fluid. You r blood pressure improved with IV fluid hydration, and withholding your Coreg and Imdur. It is safe for you to restart your Coreg (carvedilol), but please continue to NOT TAKE your Imdur (isosorbide) until after seen by your PCP to make sure your blood pressure is still looking good. You were seen by Infectious Disease and because you are colonized with Pseudomonas bacteria in your urine, you DO NOT NEED ANTIBIOTICS at this time to treat you. This bacteria always lives in you, but is not currently causing you any problems. Please follow up with your PCP within 1-2 weeks after discharge. Current Hospital Diet Patient's current hospital diet: Regular Diet Discharge Diet Recommended Diet: AHA Diet (Heart Healthy) Procedures Procedures Performed: Chest xray Changed out Gupta Catheter 08/10/17 Pending Studies Studies pending at discharge: no Medical Emergencies . Who to Call and When: Medical Emergencies: If at any time you feel your situation is an emergency, please call 911 immediately. . Non-Emergent Contact Non-Emergency issues call your: Primary Care Provider, Process Lead Call Non-Emergent contact if: you have any medication questions . . "Provider Documentation" section prepared by Debra Diaz. .
[2017-08-10] MEDS ORDERED: OXGN (12:14)
--- NOTE | 2017-08-10 12:22 | Discharge Summary ---
Discharge Summary Date of Service Aug 10, 2017. 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, with ileostomy Enlarged subcarinal lymph node CAD with history of LAD stent Hyponatremia-mild CKD stage 3 Suspected mild cognitive impairment GERD Immunizations: Have You Had Influenza Vaccine: No History of Tetanus Vaccine?: Unknown Tetanus Immunization Date: Jan 22, 2009 History of Pneumococcal: Yes Pneumococcal Date: Mar 27, 2011 History of Hepatitis B Vaccine: Unknown Procedures: Chest x-ray Consultations: Infectious disease Medication Reconciliation New Medications: Home O2 Therapy (Oxygen) Gas 2 LITERS NA HS for 30 Days Rivaroxaban (Xarelto) 20 Mg Tab 20 MG PO DAILYBD for 30 Days, #30 TAB to start on 08/15/17 Changed Medications: Isosorbide Mononitrate Ext Rel (Imdur Ext Rel) 30 Mg Tabcr 30 MG PO QAM for 30 Days (Medication details modified) HOLD UNTIL AFTER SEEN BY YOUR MD TO SEE IF IT SHOULD BE RESTARTED Rivaroxaban (Xarelto) 15 Mg Tab 15 MG PO BID for 4 Days (Medication details modified) x 4 more days, then take the 20mg tab once daily Continued Medications: Albuterol Sulfate (Proair Respiclick) 108 Mcg/Act Aer 1-2 PUFFS INH Q4-6 HRS PRN for Shortness of Breath Atorvastatin (Lipitor) 40 Mg Tab 40 MG PO DAILY Budesonide/Formoterol Fumarate (Symbicort 160/4.5 Inhaler ) Aero 1 PUFF INH BID, INHALER Carvedilol (Carvedilol) 3.125 Mg Tab 3.125 MG PO BIDM TAKE THIS MEDICATION TWICE DAILY WITH MORNING AND EVENING MEALS Cholecalciferol (Vitamin D 1000 Unit) 1,000 Unit Cap 1000 INTER.UNIT PO DAILY, CAP Cranberry-Vitamin C (Cranberry/Vitamin C) 1 Cap Cap 1 TAB PO DAILY Digoxin (Digoxin) 0.125 Mg Tab 0.125 MG PO DAILY Escitalopram Oxalate (Escitalopram Oxalate) 10 Mg Tab 10 MG PO DAILY Fluticasone Propionate (Fluticasone Propionate) 120 Sprays/6000 Mcg Inha 1 SPRAY BARRY BID Guaifenesin Ext Rel (Mucinex Ext Rel) 600 Mg Tab 600 MG PO Q12 PRN for Congestion, TAB Hydrocortisone (Hydrocortisone) 90 Appln/30 Gm Cr 1 APPLN TOP UD PRN for Neck/Back Irritation APPLY TOPICALLY TO IRRITATION ON BACK AND NECK DAILY FOR ONE WEEK THEN NEEDED Lactobacillus (Lactinex) Chw 1 TABLET PO BID, CHW Magnesium Oxide (Mag-Ox) 400 Mg Tab 400 MG PO BID Metaxalone (Skelaxin) 800 Mg Tab 800 MG PO Q8 PRN for Muscle Relaxer Multiple Vitamins W/ Minerals ([facility]vs Spectravite Ultra Wom) 1 Tab Tab 1 TAB PO QAM Multivitamins/Minerals (Cerovite Advanced Formula) 1 Tab Tab 1 TAB PO QAM Mupirocin 2% (Bactroban 2%) 30 Gm Cr 1 APPLN TOP TID PRN for Itching, TUBE Omeprazole (Prilosec) 40 Mg Cap 40 MG PO DAILY, CAP Oxybutynin Chloride (Oxybutynin Chloride) 5 Mg Tab 5 MG PO QID PRN for Catheter Changes TAKE THIS MEDICATION DIRECTED ONE DAY PRIOR TO BAÑUELOS CATHETER CHANGES AND FOR THREE DAYS AFTER EACH CHANGE Saline (Saline Nasal Armour) 0.65 % Spr 1 SPRAY BARRY BID PRN for Nasal Dryness Tiotropium [place] (Spiriva Respimat) 2.5 Mcg/Act Spr 2 PUFFS INH DAILY, INHALER Discharge Exam Patient feeling very well. Denies headache, chest pain, shortness of breath, cough, abdominal pain, diarrhea or constipation. Vital signs remained normal. He had less than 10 minutes of atrial flutter this morning up to the 130s that he paced out of. This was asymptomatic. His Bañuelos catheter is to be changed out today by nursing. I discussed the case with infectious disease on the phone who agreed that he is colonized with Pseudomonas and does not need IV antibiotic therapy for this. Review of Systems: Constitutional: No fever, No chills, No sweats Eyes: No problem reported ENT: No problem reported Respiratory: No problem reported Cardiovascular: No problem reported Abdomen: No problem reported Musculoskeletal: No problem reported Genitourinary - Male: No problem reported Neurologic: + paralysis Psychiatric: No problem reported Endocrine: No problem reported Hematologic / Lymphatic: No problem reported Integumentary: No problem reported Physical Exam: General Appearance: WD/WN, no apparent distress Eyes: normal inspection, EOMI, sclerae normal ENT: hearing grossly normal Neck: trachea midline Respiratory/Chest: lungs clear, normal breath sounds, no respiratory distress, no accessory muscle use Cardiovascular: regular rate, rhythm, no edema, no murmur, normal peripheral pulses Abdomen / GI: non tender, soft, no organomegaly, no pulsatile mass, + pertinent finding (Ileostomy bag in place with gas and stool present) Extremities: no calf tenderness, + pertinent finding (Sarcopenia of the bilateral lower extremities) Neurologic/Psychiatric: alert, normal mood/affect, oriented x 3 (Except off on the date by 2 weeks, but new person place and time as far as year and month) Skin: normal color, warm/dry, no rash Lymphatic: no adenopathy Hospital Course Hypotension-likely due to mild dehydration and not due to sepsis. He is chronically colonized with Pseudomonas and this does not need to be treated. His Imdur and Coreg were held on admission. His Coreg will be restarted on discharge given his history of heart failure, however his Imdur will continue to be held until seen by PCP. 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 Discharge Instructions Please refer to the electronic Patient Visit Report (Discharge Instructions) for additional information. Follow-Up With PCP within 1-2 weeks Additional Copies To Iam Yang M.D.
[2017-08-10 12:52] VITALS: BP 160/83; PULSE 78; TEMP 37.1; O2SAT 95
--- NOTE | 2017-08-10 15:35 | Infectious Disease Progress Nt ---
Progress Note Date of Service Aug 10, 2017. Subjective Pt evaluation today including: conversation w/ patient, physical exam, chart review, lab review, review of studies, conversation w/ databases computer consultant, review of inpatient medication list Patient offering no new complaints today. Remains afebrile. White count improving. All Other Systems: Reviewed and Negative Medications Current Inpatient Medications Medications (Trade) Dose Ordered Sig/Eloisa Route Start Time Stop Time Status Last Admin Dose Admin Acetaminophen (Tylenol Tab) 650 mg Q4H PRN PO 08/08/17 20:00 09/07/17 19:59 Ondansetron HCl (Zofran Inj) 4 mg Q6H PRN IV 08/08/17 20:00 09/07/17 19:59 Atorvastatin Calcium (Lipitor Tab) 40 mg DAILY PO 08/09/17 09:00 09/08/17 08:59 08/10/17 08:37 40 MG Budesonide/ Formoterol Fumarate (Symbicort 160/ 4.5 Inh) 1 puffs BID INH 08/08/17 21:00 09/07/17 20:59 08/10/17 08:37 1 PUFFS Cholecalciferol (Vitamin D Tab) 1,000 inter.unit DAILY PO 08/09/17 09:00 09/08/17 08:59 08/10/17 08:38 1,000 INTER.UNIT Escitalopram Oxalate (Lexapro Tab) 10 mg DAILY PO 08/09/17 09:00 09/08/17 08:59 08/10/17 08:38 10 MG Fluticasone Propionate (Flonase Nasal [place]) 1 sprays BID BARRY 08/08/17 21:00 09/07/17 20:59 08/10/17 08:37 1 SPRAYS Guaifenesin (Mucinex Contr Rel Tab) 600 mg Q12 PRN PO 08/08/17 20:00 09/07/17 19:59 08/10/17 08:40 600 MG Hydrocortisone (Hydrocortisone 2.5% Crm) 1 appln DAILY PRN EXT 08/08/17 20:00 09/07/17 19:59 Lactobacillus Acidophilus (Floranex Tab) 1 tab BID PO 08/08/17 21:00 09/07/17 20:59 08/10/17 11:40 1 TAB Magnesium Oxide (Mag-Ox Tab) 400 mg BID PO 08/08/17 21:00 5/25/18 20:59 08/10/17 08:38 400 MG Metaxalone (Skelaxin Tab) 800 mg Q8H PRN PO 08/08/17 20:00 09/07/17 19:59 Multivitamins/ Minerals (Multivitamin W/ Minerals Tab) 1 tab QAM PO 08/09/17 09:00 09/08/17 08:59 08/10/17 08:38 1 TAB Rivaroxaban (Xarelto Tab) 15 mg BID PO 08/08/17 21:00 08/14/17 23:59 08/10/17 08:38 15 MG Sodium Chloride ([place] Nasal [place]) 1 sprays BID PRN BARRY 08/08/17 20:00 09/07/17 19:59 Pantoprazole Sodium (Protonix Tab) 40 mg QAM PO 08/09/17 09:00 09/08/17 08:59 08/10/17 08:38 40 MG Tiotropium [place] (Spiriva Handihaler Inhaler) 1 puff QAM INH 08/09/17 09:00 09/08/17 08:59 08/10/17 08:37 1 PUFF Rivaroxaban (Xarelto Tab) 20 mg DAILYBD PO 08/15/17 16:00 09/14/17 15:59 Objective Vital Signs Date Time Temp Pulse Resp B/P (MAP) Pulse Ox O2 Delivery O2 Flow Rate FiO2 08/10/17 12:52 37.1 78 20 95 Nasal Cannula 08/10/17 12:00 Nasal Cannula 2.0 08/10/17 12:00 37.1 78 20 160/83 (108) 95 Room Air 08/10/17 08:20 36.9 78 20 110/66 (81) 95 Nasal Cannula 2.0 08/10/17 08:00 Nasal Cannula 2.0 08/10/17 04:00 36.9 70 18 150/78 (102) 99 Nasal Cannula 2.0 08/10/17 04:00 Nasal Cannula 2.0 08/10/17 00:00 99 Nasal Cannula 2.0 08/09/17 23:20 36.9 66 18 157/87 (110) 99 Nasal Cannula 2.0 08/09/17 20:00 96 Nasal Cannula 2.0 08/09/17 19:30 37.1 71 16 138/72 94 96 Nasal Cannula 2.0 08/09/17 16:00 92 Room Air Physical Exam General Appearance: WD/WN, no apparent distress Eyes: normal inspection, EOMI, sclerae normal ENT: normal ENT inspection, pharynx normal Neck: supple, no adenopathy, thyroid normal, trachea midline Respiratory/Chest: chest non-tender, lungs clear, normal breath sounds, no respiratory distress Cardiovascular: regular rate, rhythm, no gallop, no murmur Abdomen: normal bowel sounds, non tender, soft, no organomegaly Extremities: non-tender, no calf tenderness, normal capillary refill Neurologic/Psychiatric: no motor/sensory deficits, alert, oriented x 3 Skin: normal color, warm/dry, no rash Lymphatic: no adenopathy Laboratory Results RUN DATE: 08/10/17 [facility] LAB PAGE 1 RUN TIME: 1159 Specimen Inquiry PATIENT: DAMIEN DOBBS LOC: Marcel U # : [id number] AGE/SX: 87/M ROOM: 15 REG : 08/08/[address]: Debra Diaz MD : [id number] BED: 1 DIS : STATUS: ADM IN TLOC: SPEC #: [id number] PRASANNA: 08/08/17 STATUS: COMP REQ #: [id number] RECD: 08/08/[address] [facility] [address]: Ned Chaves M.D. SOURCE: URINE CATH ENTR: 08/08/[address] [facility] DR: Iam Yang M.D. [facility]: ORDERED: CULTURE UR CATH COMMENTS: Has Specimen Been Obtained/Collected? Y Procedure Result Verified Site URINE CULTURE Final 08/10/17 Organism 1 PSEUDOMONAS AERUGINOSA COLONY COUNT >100,000 CFU/ml SENS SENSITIVITY TO FOLLOW 1. PSEUDOMONAS AERUGINOSA Target Route Dose RX AB Cost M.I.C. IQ ------ ----- ------ -- ------ -------- - ------ CEFTAZIDIME S 4 CEFEPIME S 8 IMIPENEM S <=1 AZTREONAM S <=4 GENTAMICIN I 8 TOBRAMYCIN S <=4 AMIKACIN S <=16 CIPROFLOXACIN R >2 LEVOFLOXACIN R >4 PIP/TAZO S <=16 S = SENSITIVE I = INTERMEDIATE R = RESISTANT Last 24 Hours Test 08/10/17 06:17 White Blood Count 10.04 K/uL Red Blood Count 4.92 M/uL Hemoglobin 15.0 g/dL Hematocrit 44.1 % Mean Corpuscular Volume 89.6 fL Mean Corpuscular Hemoglobin 30.5 pg Mean Corpuscular Hemoglobin Concent 34.0 g/dl Platelet Count 152 K/uL Mean Platelet Volume 9.6 fL Neutrophils (%) (Auto) 72.4 % Lymphocytes (%) (Auto) 15.4 % Monocytes (%) (Auto) 8.5 % Eosinophils (%) (Auto) 2.6 % Basophils (%) (Auto) 0.2 % Neutrophils # (Auto) 7.27 K/uL Lymphocytes # (Auto) 1.55 K/uL Monocytes # (Auto) 0.85 K/uL Eosinophils # (Auto) 0.26 K/uL Basophils # (Auto) 0.02 K/uL RDW Standard Deviation 45.6 fL RDW Coefficient of Variation 14.0 % Immature Granulocyte % (Auto) 0.9 % Immature Granulocyte # (Auto) 0.09 K/uL Sodium Level 137 mmol/L Potassium Level 3.9 mmol/L Chloride Level 103 mmol/L Carbon Dioxide Level 30 mmol/L Anion Gap 3.0 mmol/L Blood Urea Nitrogen 17 mg/dl Creatinine 0.96 mg/dl Est Creatinine Clear Calc Drug Dose 44.4 ml/min Estimated GFR () 81.5 Estimated GFR (Non- 70.3 BUN/Creatinine Ratio 17.6 Random Glucose 97 mg/dl Calcium Level 8.2 mg/dl Assessment and Plan 87-year-old male with chronic indwelling Gupta catheter now presents with significant hypotension, better with fluid resuscitation, and no localizing signs or symptoms evident. Urine positive again for Pseudomonas, no symptoms of UTI. To change Gupta and follow off antibiotics.
[2017-08-15] MEDS ORDERED: RIVAROXABAN 20 MG TAB PO SCH (16:00)
== END 2017-08-10 16:10 | disposition home health service (06) | DRG 315 ==
LOC: EDBD 14:32 → C.EDA 14:33 → C.2T 19:58 → ENRESERV 20:28
PROVIDERS: ADMIT Internal Medicine; ATTEND Family Medicine
DX: I95.9 Hypotension, unspecified (principal); G82.20 Paraplegia, unspecified; N39.0 Urinary tract infection, site not specified; I27.82 Chronic pulmonary embolism; J96.11 Chronic respiratory failure with hypoxia; I50.42 Chronic combined systolic (congestive) and diastolic (congestive) heart failure; E87.1 Hypo-osmolality and hyponatremia; I13.0 Hypertensive heart and chronic kidney disease with heart failure and stage 1 through stage 4 chronic kidney disease, or unspecified chronic kidney disease; E86.0 Dehydration; I48.0 Paroxysmal atrial fibrillation; Z95.810 Presence of automatic (implantable) cardiac defibrillator; Z66 Do not resuscitate; J44.9 Chronic obstructive pulmonary disease, unspecified; Z95.5 Presence of coronary angioplasty implant and graft; E78.5 Hyperlipidemia, unspecified; Z88.2 Allergy status to sulfonamides; Z88.6 Allergy status to analgesic agent; I25.10 Atherosclerotic heart disease of native coronary artery without angina pectoris; Z79.01 Long term (current) use of anticoagulants; N31.9 Neuromuscular dysfunction of bladder, unspecified; Z93.2 Ileostomy status; I27.20 Pulmonary hypertension, unspecified; R59.0 Localized enlarged lymph nodes; N18.3 Chronic kidney disease, stage 3 (moderate); K21.9 Gastro-esophageal reflux disease without esophagitis; G31.84 Mild cognitive impairment of uncertain or unknown etiology; Z22.39 Carrier of other specified bacterial diseases; W13.2XXS Fall from, out of or through roof, sequela

== ENCOUNTER 2017-11-22 13:00 | Emergency (ER) | payer OTHER ==
[~2017-11-22 13:00] MED LIST changes: -ACET-1256 PO; -ALBINS/ INH; -ATOR-24 PO; -AZIT-57 PO; +BCTCR/30 TOP; -CARV3.12 PO; +CEFE1INJ3 IV; +CRG3125 PO; -DIGO0.1219 PO; -ESCI10TA17 PO; +FLNIN/ NAE; -FLUT0.15 NAE; +HYDCR25 TOP; -HYDR2.5O TOP; -ISOS30TA3 PO; +LACTCHW3 PO; +LNX125 PO; +LXP10 PO; -MELA1TAB5 PO; +META-38 PO; -META1TAB22 PO; +MULT-878 PO; +MULT-993 PO; -MULTTAB58 PO; +OXGN; -PRED10TA PO; +SYMIN160 INH; -XRL15 PO; +XRL20 PO; -[UNRECOGNIZED DRUG - CODE] TP
[2017-11-22 13:02] VITALS: TEMP 36.9; Ht 170.2 cm
--- NOTE | 2017-11-22 13:30 | EMERGENCY ROOM VISIT NOTE ---
History Report prepared by Miller: Franca Marroquin Under the Supervision of: Dr. Tenzin Garcia M.D. First contact with patient: 13:07 Chief Complaint: HEMATURIA Stated Complaint: BLOOD IN URINE History of Present Illness The patient is a 87 year old male who presents to the Emergency Room with complaints of an episode of blood in his urine beginning last night. He notes he had no symptoms when he went to bed, and woke up and noticed blood in his cronin bag. The patient denies CP, SOB, LOC, or any other pain. His notes he sees Dr. Taveras as his urologist, and last had his catheter changed about a week ago. Source of History: patient Onset: last night Position: other (cronin bag) Quality: other (blood in urine) Timing: other (episode) Associated Symptoms: No LOC, No chest pain, No SOB Note: Denies: any other pain Review of Systems See HPI for pertinent positives and negatives. A total of ten systems were reviewed and were otherwise negative. Past Medical & Surgical Medical Problems: (1) Back Surgery (2) Benign hypertension (3) Colostomy (4) COPD (5) COPD exacerbation (6) coronary artery disease with stent (7) Family history of cancer (8) Hyperlipidemia (9) Ileostomy (10) Paraplegia (11) SIRS (systemic inflammatory response syndrome) Family History Cancer Heart disease Stroke Social History Smoking Status: Never Smoker Alcohol Use: none Drug Use: none Marital Status: Housing Status: lives with family Occupation Status: retired Current/Historical Medications Scheduled Atorvastatin (Lipitor), 40 MG PO DAILY Budesonide/Formoterol Fumarate (Symbicort 160/4.5 Inhaler ), 1 PUFFS INH BID Carvedilol (Coreg), 3.125 MG PO AMPM Cholecalciferol (Vitamin D), 1,000 UNITS PO DAILY Cranberry (Vaccinium Macrocarp (Cranberry), 400 MG PO DAILY Digoxin (Digoxin), 0.125 MG PO DAILY Escitalopram (Lexapro), 10 MG PO DAILY Fluticasone Propionate (Nasal) (Flonase Allergy Relief), 1 SPRAY BARRY BID Guaifenesin La (Guaifenesin Er), 600 MG PO Q12H Isosorbide Mononitrate Ext Rel (Imdur Ext Rel), 30 MG PO QAM Lactobacillus Acidophilus (Lactinex), 1 TAB PO BID Levofloxacin (Levaquin), 750 MG PO Q2D Magnesium Oxide (Mag-Ox), 400 MG PO BID Melatonin (Melatonin), 3 MG PO HS Multivitamin (Multivitamin), 1 TAB PO DAILY Multivitamins/Minerals (Cerovite Advanced Formula), 1 TAB PO QAM Omeprazole (Omeprazole Dr), 40 MG PO DAILY Oxybutynin Chloride (Oxybutynin Chloride), 5 MG PO QID Rivaroxaban (Xarelto), 15 MG PO BID Saline ([place]al [place]), 1 SPRAY BARRY BID Scheduled PRN Albuterol Sulf (Albuterol Sulfate), 2 PUFFS INH Q6 PRN for SOB/Wheezing Albuterol Sulfate (Proair Respiclick), 1-2 PUFFS INH Q4-6HRS PRN for SOB/ Wheezing Hydrocortisone (Hydrocortisone 2.5%), 1 APPLN TOP UD PRN for IRRITATION Metaxalone (Skelaxin), 800 MG PO Q8 PRN for UNDECIDED Mupirocin 2% (Bactroban 2%), 1 APPLN EXT TID PRN for RASH Allergies Coded Allergies: Food (Verified Allergy, Severe, ANAPHYLAXIS WITH RADISHES/ DIFFICULTY BREATHING HORSERADISH, 11/22/17) NSAIDs (Verified Allergy, Severe, internal bleeding, 11/22/17) Banana (Verified Allergy, Mild, 11/22/17) Nitrofurantoin (Unverified Allergy, Unknown, ., 11/22/17) Sulfa Antibiotics (Verified Allergy, Unknown, Unknown, 11/22/17) Physical Exam Vital Signs Date Time Temp Pulse Resp B/P (MAP) Pulse Ox O2 Delivery O2 Flow Rate FiO2 11/22/17 16:45 73 18 123/67 97 Nasal Cannula 2.0 11/22/17 14:45 72 18 115/57 97 Room Air 11/22/17 13:02 36.9 89 18 123/75 95 Nasal Cannula 2.0 Physical Exam Physical Exam GENERAL: He is oriented to person, place, and time. He appears well-developed and well-nourished. He does not appear distressed. HENT: Exam performed. Head: Normocephalic and atraumatic. Right Ear: External ear normal. No mastoid tenderness. Left Ear: External ear normal. No mastoid tenderness. Mouth/Throat: The oropharynx is clear and moist. No trismus in the jaw. No dental abscesses or uvula swelling. No oropharyngeal exudate or tonsillar abscesses. EYES: Conjunctivae and EOM are normal. Pupils are equal, round, and reactive to light. Right eye exhibits no discharge. Left eye exhibits no discharge. No scleral icterus. NECK: Normal range of motion. Neck supple. No JVD present. No spinous process tenderness present. No carotid bruit present. No rigidity. No tracheal deviation and normal range of motion present. No Brudzinski's sign and no Kernig 's sign noted. CV: Normal rate, regular rhythm, normal heart sounds and intact distal pulses. There is no peripheral edema. Palpable radial pulses bue. PULM/CHEST: Effort normal and breath sounds normal. No respiratory distress. No stridor. He has no wheezes. He has no rales. Chest Wall: He exhibits no tenderness. ABD: The abdomen is soft. Bowel sounds are normal. He has no distension. No mass is present. There is no tenderness. There is no rebound, no guarding, no Bartholomew's sign and no tenderness at McBurney's point. Rovsig negative. Ileostomy in place. MUSC/SKEL: Normal range of motion. There is no peripheral edema, tenderness or deformity. : Catheter in place. No blood from meatus. Cronin bag filled with what appears to be red urine, urine in catheter is clear. LYMPH: No cervical adenopathy. NEURO: He is alert and oriented to person, place, and time. Patient is wheelchair bound. No cranial nerve deficit or sensory deficit. Coordination and gait normal. GCS eye subscore is 4. GCS verbal subscore is 5. GCS motor subscore is 6. Cerebellar tests wnl. NO facial droop, no pronator droop. SKIN: Skin is warm and dry. He is not diaphoretic. PSYCH: He has a normal mood and affect. Behavior is normal. Judgment and thought content normal. Medical Decision & Procedures ER Provider Diagnostic Interpretation: Radiology results as stated below per my review and radiologist interpretation: CT OF THE ABDOMEN AND PELVIS WITHOUT CONTRAST CLINICAL HISTORY: Hematuria. COMPARISON STUDY: CT of the abdomen and pelvis September 28, 2017. TECHNIQUE: Axial images of the abdomen and pelvis were obtained without IV contrast. Images were reviewed in the axial, sagittal, and coronal planes. A dose lowering technique was utilized adhering to the principles of ALARA. FINDINGS: Emphysema is noted within visualized portions of the lower lungs. Thoracolumbar spine fusion hardware is noted. Dependent bilateral lower lobe opacities reflect atelectasis. A small hiatal hernia is noted. Pacer leads are partially imaged. No pneumatosis, free air or portal venous gas is present. IVC filter is in place. Evaluation of the abdomen and pelvis is suboptimal on this unenhanced exam. The liver, spleen, adrenal glands and pancreas are unremarkable. There is no biliary or pancreatic ductal dilatation. There are gallstones within the gallbladder without evidence for acute cholecystitis. A lesion within the upper pole the right kidney measures water attenuation. This favors a cyst. No renal, ureteral or bladder calculi are present. Cronin balloon is present within the bladder. Bladder is collapsed. There is moderate bladder wall thickening which is been shown on previous studies. The prostate is mildly enlarged. There are findings consistent with a subtotal colectomy with right lower quadrant ileostomy. There is no evidence for a bowel obstruction. There is no lymphadenopathy. No suspicious osseous lesions are present. Sensitivity for detection of urothelial lesions is diminished on this unenhanced exam. IMPRESSION: 1. No urinary calculi or hydronephrosis. 2. Moderate bladder wall thickening which is nonspecific but has been shown on multiple previous studies and is likely due to chronic bladder outlet obstruction. This could be correlated with urinalysis and urine cytology. 3. 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 No bowel obstruction. Electronically signed by: Jerzy Pinto M.D. 11/22/2017 2:43 PM Dictated Date/Time: 11/22/2017 2:30 PM Laboratory Results 11/22/17 13:45 Red Blood Count 4.98, Mean Corpuscular Volume 90.6, Mean Corpuscular Hemoglobin 30.5, Mean Corpuscular Hemoglobin Concent 33.7, Mean Platelet Volume 9.4, Neutrophils (%) (Auto) 68.0, Lymphocytes (%) (Auto) 15.2, Monocytes (%) (Auto) 10.0, Eosinophils (%) (Auto) 5.8, Basophils (%) (Auto) 0.6, Neutrophils # (Auto ) 5.51, Lymphocytes # (Auto) 1.23, Monocytes # (Auto) 0.81, Eosinophils # (Auto ) 0.47, Basophils # (Auto) 0.05 11/22/17 13:45 Test 11/22/17 13:45 11/22/17 13:50 White Blood Count 8.10 K/uL (4.8-10.8) Red Blood Count 4.98 M/uL (4.7-6.1) Hemoglobin 15.2 g/dL (14.0-18.0) Hematocrit 45.1 % (42-52) Mean Corpuscular Volume 90.6 fL (80-100) Mean Corpuscular Hemoglobin 30.5 pg (25-34) Mean Corpuscular Hemoglobin Concent 33.7 g/dl (32-36) Platelet Count 194 K/uL (130-400) Mean Platelet Volume 9.4 fL (7.4-10.4) Neutrophils (%) (Auto) 68.0 % Lymphocytes (%) (Auto) 15.2 % Monocytes (%) (Auto) 10.0 % Eosinophils (%) (Auto) 5.8 % Basophils (%) (Auto) 0.6 % Neutrophils # (Auto) 5.51 K/uL (1.4-6.5) Lymphocytes # (Auto) 1.23 K/uL (1.2-3.4) Monocytes # (Auto) 0.81 K/uL (0.11-0.59) Eosinophils # (Auto) 0.47 K/uL (0-0.5) Basophils # (Auto) 0.05 K/uL (0-0.2) RDW Standard Deviation 43.8 fL (36.4-46.3) RDW Coefficient of Variation 13.1 % (11.5-14.5) Immature Granulocyte % (Auto) 0.4 % Immature Granulocyte # (Auto) 0.03 K/uL (0.00-0.02) Anion Gap 4.0 mmol/L (3-11) Estimated GFR () 85.8 Estimated GFR (Non- 74.0 BUN/Creatinine Ratio 15.5 (10-20) Calcium Level 9.1 mg/dl (8.5-10.1) Urine Color YELLOW Urine Appearance TURBID (CLEAR) Urine pH >= 9.0 (4.5-7.5) Urine Specific [place] 1.010 (1.000-1.030) Urine Protein 2+ (NEG) Urine Glucose (UA) NEG (NEG) Urine Ketones NEG (NEG) Urine Occult Blood 3+ (NEG) Urine Nitrite POS (NEG) Urine Bilirubin NEG (NEG) Urine Urobilinogen NEG (NEG) Urine Leukocyte Esterase LARGE (NEG) Urine WBC (Auto) >30 /hpf (0-5) Urine RBC (Auto) 0-4 /hpf (0-4) Urine Hyaline Casts (Auto) 1-5 /lpf (0-5) Urine Epithelial Cells (Auto) 20-30 /lpf (0-5) Urine Bacteria (Auto) 4+ (NEG) Urine Crystals TRIPLE PHOSPHATE Urine Pathogenic Casts /lpf (0) Urine Yeast (Auto) (NONE PRSENT) Laboratory results reviewed by ar ED Course 1309: The patient was evaluated in room C8. A complete history and physical exam was performed. 1450: Vital signs stable. Labs within normal limits with the exception of urinalysis which shows 3+ blood, positive nitrates, positive leukocyte Estrace, 4+ bacteria. CT of the abdomen shows moderate bladder wall thickening. Will attempt to call the urology from [facility] to discuss the case. 1508: I have attempted to call the patient's urologist multiple times, with no response. 1618: Discussed the patient's case with [facility] on-call urology. They feel there is no need for antibiotics and the patient is ready for discharge home. DISCHARGE - Plan of care discussed with patient and questions answered. The patient was given both verbal and printed discharge instructions. The patient verbalized understanding and ability to comply. The patient is to seek outpatient follow up as noted in the discharge instructions. The patient verbalized understanding and ability to comply. The patient is discharged in stable condition. The patient was instructed to return for worsening symptoms. Medical Decision 1309: The patient was evaluated in room C8. A complete history and physical exam was performed. 1450: Vital signs stable. Labs within normal limits with the exception of urinalysis which shows 3+ blood, positive nitrates, positive leukocyte Estrace, 4+ bacteria. CT of the abdomen shows moderate bladder wall thickening. Will attempt to call the urology from [facility] to discuss the case. 1508: I have attempted to call the patient's urologist multiple times, with no response. 1618: Discussed the patient's case with [facility] on-call urology. They feel there is no need for antibiotics and the patient is ready for discharge home. DISCHARGE - Plan of care discussed with patient and questions answered. The patient was given both verbal and printed discharge instructions. The patient verbalized understanding and ability to comply. The patient is to seek outpatient follow up as noted in the discharge instructions. The patient verbalized understanding and ability to comply. The patient is discharged in stable condition. The patient was instructed to return for worsening symptoms. Medication Reconcilliation Current Medication List: was personally reviewed by me Blood Pressure Screening Patient's blood pressure: Normal blood pressure Blood pressure disposition: Did not require urgent referral Consults Time Called: 1505 Consulting Physician: [facility] on-[facility] Returned Call: [id number] Discussed the patient's case with [facility] on-call [facility]. They feel there is no need for antibiotics and the patient is ready for discharge home. Impression Primary Impression: Hematuria Scribe Attestation The scribe's documentation has been prepared under my direction and personally reviewed by me in its entirety. I confirm that the note above accurately reflects all work, treatment, procedures, and medical decision making performed by me. The chart was completed utilizing [employer] voice recognition software. Grammatical errors, random word insertions, pronoun errors, and incomplete sentences are an occasional consequence of this system due to software limitations, ambient noise, and hardware issues. Any formal questions or concerns about the content, text, or information contained within the body of this dictation should be directly addressed to the physician for clarification. Departure Information Dispostion Home / Self-Care Referrals Iam Yang M.D. (PCP) Forms HOME CARE DOCUMENTATION FORM, IMPORTANT VISIT INFORMATION, WORK / SCHOOL INSTRUCTIONS Patient Instructions [facility] Problem Qualifiers Primary Impression: Hematuria Hematuria type: unspecified type Qualified Codes: R31.9 - Hematuria, unspecified
[2017-11-22] MEDS ORDERED: BCTCR/30 EXT (13:53)
[2017-11-22] MEDS ORDERED: OMEP-334 PO (13:53)
[2017-11-22] MEDS ORDERED: META1TAB22 PO (13:53)
[2017-11-22] MEDS ORDERED: GUAI1TAB75 PO (13:53)
[2017-11-22] MEDS ORDERED: ANSHCCR/ TOP (13:53)
[2017-11-22] MEDS ORDERED: FLUT0.15 NAE (13:53)
[2017-11-22] MEDS ORDERED: MULT-878 PO (13:53)
[2017-11-22] MEDS ORDERED: ALBINSX INH (13:53)
[2017-11-22] MEDS ORDERED: CARV3.122 PO (13:53)
[2017-11-22] MEDS ORDERED: LPT40 PO (13:53)
[2017-11-22] MEDS ORDERED: SYMIN160 INH (13:53)
[2017-11-22] MEDS ORDERED: LNX125 PO (13:53)
[2017-11-22] MEDS ORDERED: MELA3TAB PO (13:53)
[2017-11-22] MEDS ORDERED: DTR5 PO (13:53)
[2017-11-22] MEDS ORDERED: LCTX PO (13:53)
[2017-11-22] MEDS ORDERED: SALI0.6510 NAE (13:53)
[2017-11-22] MEDS ORDERED: ESCI10TA17 PO (13:53)
[2017-11-22] MEDS ORDERED: ALBU18002 INH (13:53)
[2017-11-22] MEDS ORDERED: XRL15 PO (13:53)
[2017-11-22] MEDS ORDERED: CHOL100010 PO (13:53)
[2017-11-22] MEDS ORDERED: MAGN400T6 PO (13:53)
[2017-11-22] MEDS ORDERED: LEVO1TAB35 PO (13:53)
[2017-11-22] MEDS ORDERED: MULT-506 PO (13:53)
[2017-11-22] MEDS ORDERED: CRAN1TAB4 PO (13:53)
[2017-11-22] MEDS ORDERED: ISOS30TA3 PO (13:53)
[2017-11-22 14:00] LABS: BASO % 0.6 %; BASO ABS # 0.05 K/uL (0-0.2); EOS % 5.8 %; EOS ABS # 0.47 K/uL (0-0.5); HEMATOCRIT 45.1 % (42-52); HEMOGLOBIN 15.2 g/dL (14.0-18.0); IG# 0.03 K/uL (0.00-0.02); LYMPH % 15.2 %; LYMPH ABS # 1.23 K/uL (1.2-3.4); MEAN CELL VOLUME 90.6 fL (80-100); MEAN CORPUSCULAR HEMOGLOBIN 30.5 pg (25-34); MEAN CORPUSCULAR HGB CONC 33.7 g/dl (32-36); MEAN PLATELET VOLUME 9.4 fL (7.4-10.4); MONO ABS # 0.81 K/uL (0.11-0.59); NEUT ABS # 5.51 K/uL (1.4-6.5); PLATELET COUNT 194 K/uL (130-400); RED CELL DISTRIBUTION WIDTH CV 13.1 % (11.5-14.5); RED CELL DISTRIBUTION WIDTH SD 43.8 fL (36.4-46.3)
[2017-11-22 14:18] LABS: BLOOD UREA NITROGEN 14 mg/dl (7-18); CALCIUM 9.1 mg/dl (8.5-10.1); CARBON DIOXIDE 30 mmol/L (21-32); CREATININE 0.92 mg/dl (0.60-1.40); GLUCOSE 153 mg/dl (70-99); POTASSIUM 3.9 mmol/L (3.5-5.1); SODIUM 131 mmol/L (136-145)
--- NOTE | 2017-11-22 14:45 | DIAGNOSTIC IMAGING REPORT ---
CT OF THE ABDOMEN AND PELVIS WITHOUT CONTRAST CLINICAL HISTORY: Hematuria. COMPARISON STUDY: CT of the abdomen and pelvis September 28, 2017. TECHNIQUE: Axial images of the abdomen and pelvis were obtained without IV contrast. Images were reviewed in the axial, sagittal, and coronal planes. A dose lowering technique was utilized adhering to the principles of ALARA. FINDINGS: Emphysema is noted within visualized portions of the lower lungs. Thoracolumbar spine fusion hardware is noted. Dependent bilateral lower lobe opacities reflect atelectasis. A small hiatal hernia is noted. Pacer leads are partially imaged. No pneumatosis, free air or portal venous gas is present. IVC filter is in place. Evaluation of the abdomen and pelvis is suboptimal on this unenhanced exam. The liver, spleen, adrenal glands and pancreas are unremarkable. There is no biliary or pancreatic ductal dilatation. There are gallstones within the gallbladder without evidence for acute cholecystitis. A lesion within the upper pole the right kidney measures water attenuation. This favors a cyst. No renal, ureteral or bladder calculi are present. Ugpta balloon is present within the bladder. Bladder is collapsed. There is moderate bladder wall thickening which is been shown on previous studies. The prostate is mildly enlarged. There are findings consistent with a subtotal colectomy with right lower quadrant ileostomy. There is no evidence for a bowel obstruction. There is no lymphadenopathy. No suspicious osseous lesions are present. Sensitivity for detection of urothelial lesions is diminished on this unenhanced exam. IMPRESSION: 1. No urinary calculi or hydronephrosis. 2. Moderate bladder wall thickening which is nonspecific but has been shown on multiple previous studies and is likely due to chronic bladder outlet obstruction. This could be correlated with urinalysis and urine cytology. 3. 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 No bowel obstruction. Electronically signed by: Jerzy Pinto M.D. 11/22/2017 2:43 PM Dictated Date/Time: 11/22/2017 2:30 PM
[2017-11-22] MEDS ORDERED: CIPROFLOXACIN 500 MG TAB PO STA (15:57)
[2017-11-22 17:40] VITALS: BP 123/67; PULSE 73; O2SAT 97
== END 2017-11-22 17:42 | disposition home or self-care (01) ==
LOC: C.EDB 13:02 → C.EDC 17:42
DX: R31.9 Hematuria, unspecified (principal); J44.9 Chronic obstructive pulmonary disease, unspecified; I10 Essential (primary) hypertension; I25.10 Atherosclerotic heart disease of native coronary artery without angina pectoris; G82.20 Paraplegia, unspecified; E78.5 Hyperlipidemia, unspecified; Z91.018 Allergy to other foods; Z88.6 Allergy status to analgesic agent; Z88.1 Allergy status to other antibiotic agents; Z79.01 Long term (current) use of anticoagulants; Z79.899 Other long term (current) drug therapy

== ENCOUNTER 2018-05-11 17:08 | Inpatient (IN) ==
[2018-05-11 18:02] LABS: Basophils # (auto) 0.04 K/uL (0-0.2); Basophils % (auto) 0.4 %; Eosinophils # (auto) 0.74 K/uL (0-0.5); Eosinophils % (auto) 7.8 %; Hematocrit (blood only) 39.6 % (42-52); Hemoglobin 13.4 g/dL (14.0-18.0); Immature Granulocytes # (auto) 0.04 K/uL (0.00-0.02); Immature Granulocytes % (auto) 0.4 %; Lymphocytes # (auto) 0.91 K/uL (1.2-3.4); Lymphocytes % (auto) 9.6 %; Mean Corpuscular Hgb Conc 33.8 g/dL (32-36); Mean Corpuscular Volume 87.2 fL (80-100); Mean Platelet Volume 9.7 fL (7.4-10.4); Monocytes # (auto) 0.82 K/uL (0.11-0.59); Monocytes % (auto) 8.7 %; Neutrophils # (auto) 6.92 K/uL (1.4-6.5); Neutrophils % (auto) 73.1 %; Platelet Count 197 K/uL (130-400); RDW Coefficient of Variation 13.7 % (11.5-14.5); RDW Standard Deviation 43.5 fL (36.4-46.3); Red Blood Count 4.54 M/uL (4.7-6.1); White Blood Count 9.47 K/uL (4.8-10.8)
[2018-05-11 18:18] LABS: Albumin Level 2.9 gm/dl (3.4-5.0); BUN Creatinine Ratio 16.3 (10-20); Calcium 8.9 mg/dl (8.5-10.1); Creatinine Clr Calc Pharmacy 57.2 ml/min; Est GFR (African American) 91.1; Est GFR (Non-African American) 78.6
[2018-05-11 18:21] LABS: Albumin Globulin Ratio 0.6 (0.9-2); Bilirubin,Total 0.5 mg/dl (0.2-1); Globulin 4.8 gm/dl (2.5-4.0); Total Protein 7.7 gm/dl (6.4-8.2)
--- NOTE | 2018-05-11 18:32 | CT Scan Report ---
ABDOMEN AND PELVIS CT WITHOUT CONTRAST CT DOSE: 269.20 mGy.cm HISTORY: Acute suprapubic abdominal pain. History of subtotal colectomy with right lower quadrant ile ostomy. suprapubic abd pain, RLQ colostomy TECHNIQUE: Multiaxial CT images of the abdomen and pelvis were performed without contrast. A dose lo wering technique was utilized adhering to the principles of ALARA. COMPARISON STUDY: CT abdomen and pelvis 01/24/2018. FINDINGS: Limited study without the use of contrast. Trace right and small left pleural effusions. Mild depend ent subsegmental bibasilar consolidation with bibasilar mucous plugging and bronchial wall thickening . Respiratory motion limits evaluation of the lung bases. No pneumatosis or pneumoperitoneum. Imaged inferior cardiac chambers are mildly enlarged. Pacer leads are noted overlying the right heart chambe rs. Cholelithiasis with contracted gallbladder. No CT evidence of acute cholecystitis. Unenhanced liver, spleen and adrenal glands are unremarkable. Moderate generalized pancreatic atrophy. Mild cortical sc arring and parenchymal thinning of the bilateral kidneys, left greater than right. Mild nonspecific b ilateral perinephric stranding. Cyst of the superior pole right kidney measures 3.1 cm. No renal calc clint or obstructive uropathy. Prostamegaly with moderate cervical ventral wall thickening of the bladd er. Gupta catheter is noted within urinary bladder lumen. Extensive calcification of the abdominal aorta without aneurysm. Infrarenal IVC filter. No adenopathy . Postoperative changes from prior subtotal colectomy with right lower quadrant ileostomy. Moderate d ebris-filled gastric distention. There are multiple dilated loops of small bowel measuring up to 3.8 cm with associated air-fluid levels. No discrete transition point identified. Stool noted about the r ectal stump. No ascites or mesenteric inflammation. Soft tissues appear unremarkable. Suggested bone on the lateral right ninth rib. Demineralized appearance of the bones. Posterior narda around screw fus ion hardware at T10-L3 with remote compression deformity at T11. IMPRESSION: 1. Postoperative changes from prior subtotal colectomy with right lower quadrant ileostomy. 2. Multiple dilated loops of small bowel with air-fluid levels are noted without discrete transition point identified. Findings suggest ileus or low-grade small bowel obstruction. Correlation clinically is required. 3. Cholelithiasis. 4. Trace right and small left pleural effusions with bibasilar dependent consolidation suggestive of atelectasis. 5. Prostamegaly with bladder wall thickening suggestive of chronic bladder outlet obstruction. Correl ate with urinalysis. 6. Additional findings as above. Electronically signed by: Francisco Judd M.D. 05/11/2018 6:31 PM
[2018-05-11 18:35] LABS: Appearance Urine Turbid (Clear); Bacteria Urine Automated 4+ (Negative); Bilirubin Urine Negative (Negative); Color Urine Yellow; Glucose Urine UA Negative (Negative); Ketones Urine Negative (Negative); Leukocyte Esterase Urine 3+ (Negative); Nitrite Urine Negative (Negative); Protein Urine Negative (Negative); Specific Gravity Urine 1.009 (1.000-1.030); Urobilinogen Urine Negative (Negative); WBC Urine Automated >30 /hpf (0-5); pH Urine 6.5 (4.5-7.5)
[2018-05-11 18:55] LABS: Cast Urine Automated 0 /lpf (0-5)
--- NOTE | 2018-05-11 19:25 | Ultrasound Report ---
US venous doppler LE LT HISTORY: 87 years-old Male eval for DVT acute pain and swelling of the left lower leg COMPARISON: Duplex venous Doppler study 07/25/2017 TECHNIQUE: Multiple real-time significant images of the left lower extremity the venous structures we re obtained assessing grayscale appearance, color and spectral flow FINDINGS: Normal flow, compressibility, phasicity and augmentation of the left lower extremity deep venous stru ctures. Mild subcutaneous edema about the left lower leg. IMPRESSION: No sonographic evidence of deep venous thrombosis. The above report was generated using voice recognition software. It may contain grammatical, syntax o r spelling errors. Electronically signed by: Francisco Judd M.D. 05/11/2018 7:24 PM
[2018-05-11] MEDS ORDERED: PIPERACILLIN/TAZOBACTAM 4.5 GM/120 ML BAG IV ONE (20:04)
[2018-05-11] MEDS ORDERED: PIPERACILL/TAZOBAC CONSULT ACTIVE PRN (20:04)
--- NOTE | 2018-05-11 22:03 | Emergency Department Note ---
Entered by Bela Young acting as a scribe for Robin Gonzalez MD ED Provider Note CHIEF COMPLAINT: Illness HISTORY OF PRESENT ILLNESS: The patient is an 87 year old male who presents to the Emergency Room with complaints of constant illness that started today. The patients noticed the patients left leg was red and swollen. The patient reports he called the on -call physician and was told to come to the ER. The patient states he does not have any sensation. He reports he has a cronin and pacer. The patient is also here for blood clot evaluation. He states he has history of colostomy. The patient report he has abdomen pain. He states he occasionally uses pepto-bismol for his abdomen pain. The adds the patient has been having confusion over the last 24 hours and it is similar to the last time he had an infection. Pt denies LOC, headache, fevers, chills, diaphoresis, visual changes, neck pain , chest pain, breathing difficulties, nausea, vomiting, back pain, melena, hematochezia, new urinary symptoms, numbness, weakness, eye problems, sore throat, lymphadenopathy, rash, or other complaints. REVIEW OF SYSTEMS: See HPI for pertinent positives and negatives. A total of ten systems were reviewed and were otherwise negative. PMHx/PSHx: Acute UTI CAD COPD Urinary retention Paraplegia Colostomy SOCIAL HISTORY: Patient lives at home. PHYSICAL EXAM: GENERAL: Awake, alert, well-appearing, in no distress HENT: Normocephalic, atraumatic. Oropharynx unremarkable. EYES: Normal conjunctiva. Sclera non-icteric. NECK: Inspection normal. Non-tender. Supple. No nuchal rigidity. FROM. No masses. RESPIRATORY: Clear to auscultation. No wheezes. No rales. Normal respiratory effort. CARDIAC: Normal rate. Normal rhythm. No murmurs. No rubs. Extremities warm and well perfused. Pulses equal. No JVD. GI: Soft, non-distended. No tenderness to palpation. No rebound or guarding. No masses. Suprapubic tenderness. Colostomy in right lower quadrant. Indwelling cronin catheter RECTAL: Deferred. MUSCULOSKELETAL: Atraumatic. Chest examination reveals no tenderness. The back is symmetrical on inspection without obvious abnormality. There is no CVA tenderness to palpation. No joint edema. LOWER EXTREMITIES: Calves are equal size bilaterally and non-tender. No edema. No discoloration. Warm and erythema to the left foot and lower leg to about the mid pate. 2+ DP pulse. NEURO: Normal sensorium. Lower extremity paralysis present. No sensation in the lower extremities. SKIN: No rash or jaundice noted. EMERGENCY DEPARTMENT COURSE: 1721: Past medical records reviewed. The patient was evaluated in room A11B, and a complete history and physical examination were performed. 1999: I checked on the patient. 2004: I reviewed the patient's case with Dr. Lamas, [facility] Hospitalist. He will evaluate the patient for further management. MEDICAL DECISION MAKING: Triage Nursing notes reviewed. The patient's presentation and history were concerning for leg swelling, redness , abdominal discomfort, and indwelling Cronin catheter with recent abnormal culture. Etiologies such as cellulitis, DVT, infection, trauma, muscular strain/tear, joint effusion, lymphedema, idiopathic, obstruction, colitis, UTI, pyelonephritis, as well as others were entertained. The patient was evaluated. He had some abdominal discomfort on examination. His lower leg was concerning for cellulitis. The patient had an unremarkable CBC but left shift on differential. Chemistry panel was unremarkable. An ultrasound was performed and was negative for DVT. The patient had a urinalysis performed and this was concerning as it was worse than his prior. Prior records were reviewed and his culture results show that he has had a Pseudomonas bacteria grown on multiple cultures. The cultures also revealed the sensitivities that were concerning as the Pseudomonas was resistant to quinolones. This was sensitive to Zosyn and cefepime. The patient was currently taking Omnicef. CAT scan imaging of the abdomen was performed. This was concerning for partial small bowel obstruction as well as a cystitis. Given the findings of the physical examination as well as the CAT scan the patient was started on IV Zosyn. The notes that the patient has been experiencing some confusion which she has had in the past when he is dealt with infections. The fact that he has a cellulitis in the left leg is also concerning as he has been taking oral antibiotics. I discussed treatment in the hospital and the and patient were in agreement. Consultation was made with internal medicine. The patient was evaluated in the ER for further management. IMPRESSION: Partial small bowel obstruction Left leg cellulitis UTI Confusion PLAN: Admit The scribe's documentation has been prepared under my direction and personally reviewed by me in its entirety. I confirm that the note above accurately reflects all work, treatment, procedures, and medical decision making performed by me. 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) Family history of cancer (10/26/12) Pyelonephritis SIRS (systemic inflammatory response syndrome) Sepsis Social History Current Living Situation: Family Feels Safe at Home: Yes Smoking Status: Never smoker Second Hand Exposure: No Hx Alcohol Use: Yes Hx Substance Use: No Beliefs That Will Affect Care: None Preferred Language: Kazakh Results & Data Vital Signs Vital Signs - 24 hr 05/11/18 17:08 05/11/18 17:45 05/11/18 18:18 Temperature 37.2 C Temperature Source Oral Sepsis Recent Fever Within 48 Hours No Sepsis New/Unexplained Change in Mental Status No Sepsis Action Taken by Nursing No Action Required Pulse Rate 80 Pulse Rate [Apical] 75 Respiratory Rate 18 24 Respiratory Effort / Characteristics Non-Labored Spontaneous Respiratory Depth Normal Normal Respiratory Pattern Regular Blood Pressure 110/71 Blood Pressure [Right Arm] 115/77 Blood Pressure Mean 84 Blood Pressure Mean [Right Arm] 89 Pulse Oximetry 95 96 97 Oxygen Delivery Method Nasal Cannula Nasal Cannula Nasal Cannula Oxygen Flow Rate 2 2 2 05/11/18 18:59 05/11/18 19:23 05/11/18 19:58 Temperature Temperature Source Sepsis Recent Fever Within 48 Hours Sepsis New/Unexplained Change in Mental Status Sepsis Action Taken by Nursing Pulse Rate Pulse Rate [Apical] 73 62 83 Respiratory Rate 22 34 H Respiratory Effort / Characteristics Non-Labored Spontaneous Respiratory Depth Normal Respiratory Pattern Regular Blood Pressure Blood Pressure [Right Arm] 123/71 104/57 L 110/60 Blood Pressure Mean Blood Pressure Mean [Right Arm] 88 72 76 Pulse Oximetry 99 94 94 Oxygen Delivery Method Nasal Cannula Nasal Cannula Nasal Cannula Oxygen Flow Rate 2 2 2 05/11/18 21:06 Temperature Temperature Source Sepsis Recent Fever Within 48 Hours Sepsis New/Unexplained Change in Mental Status Sepsis Action Taken by Nursing Pulse Rate Pulse Rate [Apical] 84 Respiratory Rate 22 Respiratory Effort / Characteristics Respiratory Depth Respiratory Pattern Blood Pressure Blood Pressure [Right Arm] 125/55 L Blood Pressure Mean Blood Pressure Mean [Right Arm] 78 Pulse Oximetry 91 Oxygen Delivery Method Nasal Cannula Oxygen Flow Rate 3 Home Medications Current Medication List: was personally reviewed by me Laboratory Data Attestation: I reviewed the patient's lab results. Result diagrams: 05/11/18 17:45 05/11/18 17:45 Lab Results 05/11/18 05/11/18 05/11/18 Range/Units 17:45 17:45 18:15 WBC 9.47 (4.8-10.8) K/uL RBC 4.54 L (4.7-6.1) M/uL Hgb 13.4 L (14.0-18.0) g/dL Hct 39.6 L (42-52) % MCV 87.2 (80-100) fL MCH 29.5 (25-34) pg MCHC 33.8 (32-36) g/dL RDW Std Deviation 43.5 (36.4-46.3) fL RDW Coeff of [place] 13.7 (11.5-14.5) % Plt Count 197 (130-400) K/uL MPV 9.7 (7.4-10.4) fL Immature Gran % (Auto) 0.4 % Neut % (Auto) 73.1 % Lymph % (Auto) 9.6 % [place] % (Auto) 8.7 % Eos % (Auto) 7.8 % Baso % (Auto) 0.4 % Immature Gran # (Auto) 0.04 H (0.00-0.02) K/uL Neut # (Auto) 6.92 H (1.4-6.5) K/uL Lymph # (Auto) 0.91 L (1.2-3.4) K/uL [place] # (Auto) 0.82 H (0.11-0.59) K/uL Eos # (Auto) 0.74 H (0-0.5) K/uL Baso # (Auto) 0.04 (0-0.2) K/uL Sodium 131 L (136-145) mmol/L Potassium 4.0 (3.5-5.1) mmol/L Chloride 97 L (98-107) mmol/L Carbon Dioxide 27 (21-32) mmol/L Anion Gap 7.0 (3-11) BUN 14 (7-18) mg/dl Creatinine 0.83 (0.6-1.4) mg/dl Est Cr Clr Drug Dosing 57.2 ml/min Est GFR ( Amer) 91.1 Est GFR (Non-Af Amer) 78.6 BUN/Creatinine Ratio 16.3 (10-20) Glucose 169 H (70-99) mg/dl Calcium 8.9 (8.5-10.1) mg/dl Total Bilirubin 0.5 (0.2-1) mg/dl AST 27 (15-37) U/L ALT 36 (12-78) U/L Alkaline Phosphatase 89 (45-117) U/L Total Protein 7.7 (6.4-8.2) gm/dl Albumin 2.9 L (3.4-5.0) gm/dl Globulin 4.8 H (2.5-4.0) gm/dl Albumin/Globulin Ratio 0.6 L (0.9-2) Lipase 111 (73-393) U/L Urine Color Yellow Urine Appearance Turbid H (Clear) Urine pH 6.5 (4.5-7.5) Ur Specific [place] 1.009 (1.000-1.030) Urine Protein Negative (Negative) Urine Glucose (UA) Negative (Negative) Urine Ketones Negative (Negative) Urine Blood 3+ H (Negative) Urine Nitrite Negative (Negative) Urine Bilirubin Negative (Negative) Urine Urobilinogen Negative (Negative) Ur Leukocyte Esterase 3+ H (Negative) Urine WBC (Auto) >30 H (0-5) /hpf Urine RBC (Auto) 0-4 (0-4) /hpf U Hyaline Cast (Auto) 0 (0-5) /lpf U Epithel Cells (Auto) 10-20 H (0-5) /lpf Urine Bacteria (Auto) 4+ H (Negative) Administered Medications Discontinued Medications Piperacillin Sod/Tazobactam Sod (Zosyn) 4.5 gm in 120 mls @ 240 mls/hr IV NOW ONE Stop: 05/11/18 20:33 Last Infusion: 05/11/18 21:40 Dose: 0 mls/hr Admin: 05/11/18 21:10 Dose: 240 mls/hr Imaging Data Radiologist's Impression: Radiology results as stated below per my review and the radiologist's interpretation: ABDOMEN AND PELVIS CT WITHOUT CONTRAST CT DOSE: 269.20 mGy.cm HISTORY: Acute suprapubic abdominal pain. 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 suprapubic abd pain, RLQ colostomy TECHNIQUE: Multiaxial CT images of the abdomen and pelvis were performed without contrast. A dose lowering technique was utilized adhering to the principles of ALARA. COMPARISON STUDY: CT abdomen and pelvis 01/24/2018. FINDINGS: Limited study without the use of contrast. Trace right and small left pleural effusions. Mild dependent subsegmental bibasilar consolidation with bibasilar mucous plugging and bronchial wall thickening. Respiratory motion limits evaluation of the lung bases. No pneumatosis or pneumoperitoneum. Imaged inferior cardiac chambers are mildly enlarged. Pacer leads are noted overlying the right heart chambers. Cholelithiasis with contracted gallbladder. No CT evidence of acute cholecystitis. Unenhanced liver, spleen and adrenal glands are unremarkable. Moderate generalized pancreatic atrophy. Mild cortical scarring and parenchymal thinning of the bilateral kidneys, left greater than right. Mild nonspecific bilateral perinephric stranding. Cyst of the superior pole right kidney measures 3.1 cm. No renal calculi or obstructive uropathy. Prostamegaly with moderate cervical ventral wall thickening of the bladder. Cronin catheter is noted within urinary bladder lumen. Extensive calcification of the abdominal aorta without aneurysm. Infrarenal IVC filter. No adenopathy. Postoperative changes from prior subtotal colectomy with right lower quadrant ileostomy. Moderate debris-filled gastric distention. There are multiple dilated loops of small bowel measuring up to 3.8 cm with associated air-fluid levels. No discrete transition point identified. Stool noted about the rectal stump. No ascites or mesenteric inflammation. Soft tissues appear unremarkable. Suggested bone on the lateral right ninth rib. Demineralized appearance of the bones. Posterior narda around screw fusion hardware at T10-L3 with remote compression deformity at T11. IMPRESSION: 1. Postoperative changes from prior subtotal colectomy with right lower quadrant ileostomy. 2. Multiple dilated loops of small bowel with air-fluid levels are noted without discrete transition point identified. Findings suggest ileus or low- grade small bowel obstruction. Correlation clinically is required. 3. Cholelithiasis. 4. Trace right and small left pleural effusions with bibasilar dependent consolidation suggestive of atelectasis. 5. Prostamegaly with bladder wall thickening suggestive of chronic bladder outlet obstruction. Correlate with urinalysis. 6. Additional findings as above. Electronically signed by: Francisco Judd M.D. 05/11/2018 6:31 PM US venous doppler LE LT HISTORY: 87 years-old Male eval for DVT acute pain and swelling of the left lower leg COMPARISON: Duplex venous Doppler study 07/25/2017 TECHNIQUE: Multiple real-time significant images of the left lower extremity the venous structures were obtained assessing grayscale appearance, color and spectral flow FINDINGS: Normal flow, compressibility, phasicity and augmentation of the left lower extremity deep venous structures. Mild subcutaneous edema about the left lower leg. IMPRESSION: No sonographic evidence of deep venous thrombosis. The above report was generated using voice recognition software. It may contain grammatical, syntax or spelling errors. Electronically signed by: Francisco Judd M.D. 05/11/2018 7:24 PM Blood Pressure Blood Pressure Findings: Normal blood pressure Blood Pressure Disposition: did not require urgent referral Discharge Plan Visit Data Chief Complaint: Illness Stated Complaint: LEG SWELLING, AB PAIN ED Provider: Robin Gonzalez Discharge Problem: Partial small bowel obstruction, Cellulitis of left leg, UTI (urinary tract infection), Confusion Patient Disposition: Being Evaluated by Hospitalist Forms Stand Alone Forms: My [facility] Prescriptions Prescriptions: No Action atorvastatin 40 mg tablet 40 mg PO DAILY RF: 0 omeprazole 40 mg capsule,delayed release(DR/EC) 40 mg PO DAILY RF: 0 mupirocin 2 % ointment 1 applic Topical TID PRN (Reason: Skin Irritation) RF: 0 digoxin 125 mcg tablet 125 mcg PO DAILY RF: 0 escitalopram oxalate 10 mg tablet 10 mg PO DAILY RF: 0 metaxalone 800 mg tablet 800 mg PO Q8H PRN (Reason: Muscle Spasm) RF: 0 melatonin 3 mg Tablet 3 mg PO HS PRN (Reason: Sleep) RF: 0 magnesium oxide 400 mg (241.3 mg magnesium) Tablet 400 mg PO DAILY RF: 0 cranberry 400 mg Capsule 400 mg PO DAILY RF: 0 hydrocortisone 2.5 % Cream 1 applic TOPICAL DAILY PRN (Reason: Skin Irritation) RF: 0 fluticasone 50 mcg/actuation [place],Suspension 1 spray INTRANASAL BID PRN (Reason: Nasal Congestion) RF: 0 sodium chloride [Saline Nasal] 0.65 % Aerosol,[place] 1 spray INTRANASAL BID PRN (Reason: Nasal Dryness) RF: 0 Lactobacillus acidoph-L.bulgar [Lactinex] 100 million cell Granules In Packet 1 tab PO BID RF: 0 cholecalciferol (vitamin D3) [Vitamin D3] 1,000 unit Tablet 1,000 units PO DAILY RF: 0 albuterol sulfate [ProAir HFA] 90 mcg/actuation Hfa Aerosol Inhaler 1 - 2 puff INHALATION Q4H PRN (Reason: Shortness Of Breath Or Wheezing) RF: 0 budesonide-formoterol [Symbicort] 160-4.5 mcg/actuation Hfa Aerosol Inhaler 1 puff INHALATION BID RF: 0 guaifenesin [Mucinex] 600 mg Tablet Extended Release 12hr 600 mg PO Q12H PRN (Reason: Congestion) RF: 0 albuterol sulfate 2.5 mg /3 mL (0.083 %) solution for nebulization 1 vial Inhalation Q6H PRN (Reason: Shortness Of Breath Or Wheezing) RF: 0 rivaroxaban [Xarelto] 20 mg tablet 20 mg PO DAILY RF: 0 clindamycin phosphate [Clindagel] 1 % Gel, Once Daily 1 applic TOPICAL DAILY PRN (Reason: Irritation) RF: 0 cefdinir 300 mg capsule 300 mg PO BID 10 Days Qty: 20 RF: 0 ymptgnaxtlov-zhqz-oqpry acid [Spectravite Ultra Women] 18-400 mg-mcg tablet 1 tab PO QAM RF: 0 Referrals Referrals: Iam Yang MD [Primary Care Provider] - The scribe's documentation has been prepared under my direction and personally reviewed by me in its entirety. I confirm that the note above accurately reflects all work, treatment, procedures, and medical decision making performed by me.
--- NOTE | 2018-05-11 22:33 | History & Physical Report ---
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 Concern due to left lower extremity reddening that was first noticed earlier today. Do not endorse fevers, chills, decreased appetite or other constitutional symptoms. Is seen by home care nurse weekly who has been tending to his sacral ulcer. Recently had a routine oupatient visit with PCP (Saurav Yang) and was doing well. Was seen in ED for concern for possible UTI 05/03/18 and nonspecific symptoms involving early satiety and UA was positive and decision made to treat pt at outpatient with cefdinir 300mg BID x 10days. Culture resulted growing pseudomonas resistant only to cipro and quinolones. Pt does endorse occasional pain around ostomy bag in RLQ that has been increasing in frequency in the last two months. Denies any change in drainage, stool is at baseline rate and appearance. Abdominal pain, possible Partial SBO -monitor, advance diet as tolerated -presentation may be c/w colitis 2/2 c. diff infection - certainly hi risk -- c. diff pending FEN/GI: regular diet, AAT DVT ppx: on xarelto, SCD knee CODE STATUS: FULL code, has living will DISPO: to med/surg (2) Cellulitis of left leg: On Vanc and Zosyn (3) UTI (urinary tract infection): Repeat culture pending had completed 8 days of outpatient cefdinir for pseudomonas growing urine switched to vanc/zosyn here (4) CAD (coronary artery disease): continue statin (5) COPD (chronic obstructive pulmonary disease): continue inhalers Oxygen requirement at about baseline which is 2L -- mild exp wheeze on exam may likely be his baseline. Follow (6) Urinary retention: Cronin care (7) Paraplegia: routine care, fall precautions Present on Admission?: Yes (8) Colostomy: routine care Present on Admission?: Yes (9) Sacral ulcer: wound consult ordered. Per report is improving. 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 Concern due to left lower extremity reddening that was first noticed earlier today. Do not endorse fevers, chills, decreased appetite or other constitutional symptoms. Is seen by home care nurse weekly who has been tending to his sacral ulcer. Recently had a routine oupatient visit with PCP (Saurav Yang) and was doing well. Was seen in ED for concern for possible UTI 05/03/18 and nonspecific symptoms involving early satiety and UA was positive and decision made to treat pt at outpatient with cefdinir 300mg BID x 10days. Culture resulted growing pseudomonas resistant only to cipro and quinolones. Pt does endorse occasional pain around ostomy bag in RLQ that has been increasing in frequency in the last two months. Denies any change in drainage, stool is at baseline rate and appearance. Allergies Allergy/AdvReac Type Severity Reaction Status Date / Time banana Allergy Mild Abdominal Verified 05/03/18 18:21 Pain nitrofurantoin Allergy Unknown Unknown Verified 05/03/18 18:21 Sulfa (Sulfonamide Allergy Unknown Unknown Verified 05/03/18 18:21 Antibiotics) NSAIDS (Non-Steroidal AdvReac Severe internal Verified 05/03/18 18:21 Anti-Inflamma bleeding Food Allergy Severe ANAPHYLAXIS Uncoded 05/03/18 18:21 WITH RADISHES/ DIFFICULTY BREATHING HORSERADISH Home Medications Home Medications Medication Instructions Recorded Confirmed Type Lactobacillus acidoph-L.bulgar 1 tab PO BID 01/12/18 05/11/18 History [Lactinex] atorvastatin 40 mg PO DAILY 01/12/18 05/11/18 History cholecalciferol (vitamin D3) 1,000 units PO DAILY 01/12/18 05/11/18 History [Vitamin D3] cranberry 400 mg PO DAILY 01/12/18 05/11/18 History digoxin 125 mcg PO DAILY 01/12/18 05/11/18 History escitalopram oxalate 10 mg PO DAILY 01/12/18 05/11/18 History fluticasone 1 spray INTRANASAL BID PRN 01/12/18 05/11/18 History hydrocortisone 1 applic TOPICAL DAILY PRN 01/12/18 05/11/18 History magnesium oxide 400 mg PO DAILY 01/12/18 05/11/18 History melatonin 3 mg PO HS PRN 01/12/18 05/11/18 History metaxalone 800 mg PO Q8H PRN 01/12/18 05/11/18 History mupirocin 1 applic TOPICAL TID PRN 01/12/18 05/11/18 History omeprazole 40 mg PO DAILY 01/12/18 05/11/18 History sodium chloride [Saline Nasal] 1 spray INTRANASAL BID PRN 01/12/18 05/11/18 History albuterol sulfate [ProAir HFA] 1 - 2 puff INHALATION Q4H PRN 02/22/18 05/11/18 History budesonide-formoterol [Symbicort] 1 puff INHALATION BID 02/22/18 05/11/18 History guaifenesin [Mucinex] 600 mg PO Q12H PRN 02/22/18 05/11/18 History albuterol sulfate 1 vial INHALATION Q6H PRN 03/29/18 05/11/18 History rivaroxaban [Xarelto] 20 mg PO DAILY 03/29/18 05/11/18 History clindamycin phosphate [Clindagel] 1 applic TOPICAL DAILY PRN 05/03/18 05/11/18 History xntgohnamiva-spmd-lhfvs acid 1 tab PO QAM 05/11/18 05/11/18 History [Spectravite Ultra Women] Past Med/Surg History Medical History Acute UTI (Acute) CAD (coronary artery disease) (Chronic) Paroxysmal atrial fibrillation COPD (chronic obstructive pulmonary disease) (Chronic) Urinary retention (Resolved) Paraplegia (Chronic 05/20/12) Colostomy (Chronic 05/20/12) Hx pulmonary embolism (Chronic) Pacemaker (Chronic) Family history of cancer (10/26/12) Pyelonephritis SIRS (systemic inflammatory response syndrome) Sepsis Family History Other No pertinent family history Social History marital status: Current Living Situation: Spouse Other Information That Helps Us Care for You: No Feels Safe at Home: Yes Safety Concerns: Feels Safe At This Time Smoking Status: Never smoker Second Hand Exposure: No Hx Alcohol Use: No Hx Substance Use: No Beliefs That Will Affect Care: None Preferred Language: Spanish Communication Ability: Effective Chemical Packager Required: No Review of Systems All systems reviewed & are unremarkable except as noted in HPI & below (Denies headache, new visual changes, cough, dyspnea, chest pain. Endorses chronic paraplegia. Endorses occasional abdominal pain as above. Endorses new rash as above.) Physical Exam 2 Vital Signs (Past 24 Hours): Last Vital Signs Temp 37.2 C 05/11/18 17:08 Pulse 83 05/11/18 22:01 Resp 24 05/11/18 22:01 BP 135/70 05/11/18 22:01 Pulse Ox 96 05/11/18 22:01 Physical Exam: Vitals noted as above and within normal limits. GENERAL: Awake, alert, well-appearing, in no distress HENT: Normocephalic, atraumatic. Nasal cannula in place. EYES: Normal conjunctiva. Sclera non-icteric. EOMI. NECK: Supple. Full range of motion. no JVD RESPIRATORY: Mild wheeze bilaterally at bases. Normal work of breathing. CARDIAC: Distant heart sounds, but pulses reveal regular rate and rhythm. Extremities warm and well perfused. Pulses equal. ABDOMEN: Soft, slightly distended and tympanic. No tenderness to palpation. No rebound or guarding. No masses. Bowel sounds are normal. LOWER EXTREMITIES: Calves are atrophic, equal size bilaterally. No edema. Erythema noted on lower left leg up to mid calf- discoloration. No telangiectasia. NEURO: No gross focal motor deficits noted. SKIN: Rash present as above c/w cellulitis. No jaundice noted. Results & Data Laboratory Results 05/11/18 05/11/18 05/11/18 Range/Units 18:15 17:45 17:45 WBC 9.47 (4.8-10.8) K/uL RBC 4.54 L (4.7-6.1) M/uL Hgb 13.4 L (14.0-18.0) g/dL Hct 39.6 L (42-52) % MCV 87.2 (80-100) fL MCH 29.5 (25-34) pg MCHC 33.8 (32-36) g/dL RDW Std Deviation 43.5 (36.4-46.3) fL RDW Coeff of Evelyne 13.7 (11.5-14.5) % Plt Count 197 (130-400) K/uL MPV 9.7 (7.4-10.4) fL Immature Gran % (Auto) 0.4 % Neut % (Auto) 73.1 % Lymph % (Auto) 9.6 % Summers % (Auto) 8.7 % Eos % (Auto) 7.8 % Baso % (Auto) 0.4 % Immature Gran # (Auto) 0.04 H (0.00-0.02) K/uL Neut # (Auto) 6.92 H (1.4-6.5) K/uL Lymph # (Auto) 0.91 L (1.2-3.4) K/uL Summers # (Auto) 0.82 H (0.11-0.59) K/uL Eos # (Auto) 0.74 H (0-0.5) K/uL Baso # (Auto) 0.04 (0-0.2) K/uL Sodium 131 L (136-145) mmol/L Potassium 4.0 (3.5-5.1) mmol/L Chloride 97 L (98-107) mmol/L Carbon Dioxide 27 (21-32) mmol/L Anion Gap 7.0 (3-11) BUN 14 (7-18) mg/dl Creatinine 0.83 (0.6-1.4) mg/dl Est Cr Clr Drug Dosing 57.2 ml/min Est GFR ( Amer) 91.1 Est GFR (Non-Af Amer) 78.6 BUN/Creatinine Ratio 16.3 (10-20) Glucose 169 H (70-99) mg/dl Calcium 8.9 (8.5-10.1) mg/dl Total Bilirubin 0.5 (0.2-1) mg/dl AST 27 (15-37) U/L ALT 36 (12-78) U/L Alkaline Phosphatase 89 (45-117) U/L Total Protein 7.7 (6.4-8.2) gm/dl Albumin 2.9 L (3.4-5.0) gm/dl Globulin 4.8 H (2.5-4.0) gm/dl Albumin/Globulin Ratio 0.6 L (0.9-2) Lipase 111 (73-393) U/L Urine Color Yellow Urine Appearance Turbid H (Clear) Urine pH 6.5 (4.5-7.5) Ur Specific [place] 1.009 (1.000-1.030) Urine Protein Negative (Negative) Urine Glucose (UA) Negative (Negative) Urine Ketones Negative (Negative) Urine Blood 3+ H (Negative) Urine Nitrite Negative (Negative) Urine Bilirubin Negative (Negative) Urine Urobilinogen Negative (Negative) Ur Leukocyte Esterase 3+ H (Negative) Urine WBC (Auto) >30 H (0-5) /hpf Urine RBC (Auto) 0-4 (0-4) /hpf U Hyaline Cast (Auto) 0 (0-5) /lpf U Epithel Cells (Auto) 10-20 H (0-5) /lpf Urine Bacteria (Auto) 4+ H (Negative) Diagnostic Findings Venous Doppler study of left lower extremity negative for DVT. Abdominal CT positive for ileus or low-grade small bowel obstruction. Cholelithiasis, bibasilar dependent consolidation/pleural effusions, chronic bladder outlet obstruction due to prostatomegaly and bladder wall thickening, infrarenal IVC filter. Postop changes from prior subtotal colectomy with right lower quadrant ileostomy. Debris-filled gastric distention. Code Status & VTE Plan Code Status full VTE Prophylaxis Plan VTE Prophylaxis will be ordered: Yes Supervising Physician Co-Signing Physician Notes Attending addendum: I have physically seen this patient, have supervised the medical residents activities, and agree with the H&P unless as otherwise noted. Assessment and Plan: Cellulitis of left leg anterior tibial surface-- Placed on vancomycin IV and Zosyn IV. Follow response closely, and follow stool for C. difficile studies closely, to integrate therapy as needed. Partial small bowel obstruction-- With history of recurrent Pseudomonas and Proteus UTIs, and use of antibiotics, would send a stool for C. difficile. Bibasilar consolidation with mucous plugging /gastric distention with debris noted, both on CT-- Might suggest mechanism for aspiration pneumonia. However, patient's oxygenation is excellent and he is breathing comfortably and has no complaints. Since he is asymptomatic, would follow for now, but have a low threshold to treat if becomes symptomatic. Remaining orders and notations as noted. Resident Activity Tracking Resident Involvement: Resident Care Provided Care Provided: [facility] Medicine _ (1) UTI (urinary tract infection) Encounter type: initial encounter Hematuria presence: Indwelling urinary catheter type: indwelling urethral catheter Urinary tract infection type: catheter-associated UTI Qualified Code(s): T83.511A - Infection and inflammatory reaction due to indwelling urethral catheter, initial encounter; N39.0 - Urinary tract infection, site not specified
[2018-05-12] MEDS ORDERED: MUPIROCIN 2% OINT 22 GM TUBE TOP PRN (00:27)
[2018-05-12] MEDS ORDERED: FLUTICASONE PROPIONATE NA SPR 16 GM BTL PRN (00:27)
[2018-05-12] MEDS ORDERED: ALBUTEROL 0.083% NEBU SOLN 3 ML VIAL INH PRN (00:27)
[2018-05-12] MEDS ORDERED: NON-FORMULARY MEDICATION (Melatonin [Melatonin] 3 MG) PO PRN (00:27)
[2018-05-12] MEDS ORDERED: HYDROCORTISONE 2.5% CR 30 GM TUBE EXT PRN (00:27)
[2018-05-12] MEDS ORDERED: VANCOMYCIN CONSULT ACTIVE PRN (00:27)
[2018-05-12] MEDS ORDERED: ALBUTEROL HFA 8 GM INHALER INH PRN (00:27)
[2018-05-12] MEDS ORDERED: guaiFENesin 600 MG TABCR PO PRN (00:27)
[2018-05-12] MEDS ORDERED: METAXALONE 800 MG TABLET PO PRN (00:27)
[2018-05-12] MEDS ORDERED: SODIUM CHLORIDE 0.65% NA SOLN 45 ML (OCEAN) PRN (00:27)
[2018-05-12] MEDS ORDERED: VANCOMYCIN HCL 1,500 MG in SODIUM CHLORIDE 0.9% 500 ML IV SCH (01:00)
[2018-05-12] MEDS: PIPERACILLIN/TAZOBACTAM 3.375 GM in DEXTROSE 5% 100 ML IV SCH ×3 (01:20→17:29)
--- NOTE | 2018-05-12 08:42 | Hospitalist Progress Note ---
Date of Service May 12, 2018 Assessment & Plan (1) Partial small bowel obstruction: suggested on CT Pt does endorse occasional pain around ostomy bag in RLQ that has been increasing in frequency in the last two months. Denies any change in drainage, stool is at baseline rate and appearance. Pain is resolved C. difficile testing is negative (2) Cellulitis of left leg: On Vanc and Zosyn Concern due to left lower extremity reddening really improved on antibiotics Is seen by home care nurse weekly who has been tending to his sacral ulcer. Recently had a routine oupatient visit with PCP (Saurav Yang) and was doing well. Was seen in ED for concern for possible UTI 05/03/18 and nonspecific symptoms involving early satiety and UA was positive and decision made to treat pt at outpatient with cefdinir 300mg BID x 10days. Culture resulted growing pseudomonas resistant only to cipro and quinolones. (3) UTI (urinary tract infection): catheder associated UTI Repeat culture pending had completed 8 days of outpatient cefdinir for pseudomonas growing urine switched to vanc/zosyn here (4) CAD (coronary artery disease): continue statin (5) COPD (chronic obstructive pulmonary disease): continue inhalers Oxygen requirement at about baseline which is 2L -- (6) Urinary retention: Cronin care (7) Paraplegia: routine care, fall precautions as patient has lower body paralysis (8) Colostomy: routine care (9) Sacral ulcer: wound consult ordered. Per report is improving. 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 She is chronically paraplegic due to a spinal cord injury No double vision blurry vision No problems with speech or swallowing No palpitations, chest pain or pressure No Wheezing or breathing issues No abdominal pain nausea vomiting diarrhea changes in appetite or weight ostomy function is without complaint this morning Improved skin rash No unusual bruising or bleeding No changes in memory or confusion Physical Exam 2 Vital Signs (Past 24 Hours): Last Vital Signs Temp 36.7 C 05/12/18 07:15 Pulse 66 05/12/18 07:15 Resp 16 05/12/18 07:15 BP 122/72 05/12/18 07:15 Pulse Ox 100 05/12/18 07:15 The patient appeared well nourished Vital signs as documented. Head exam is unremarkable. normocephalic, atraumatic Neck is without jugular venous distension, thyromegaly, or lymphademopathy Lungs are clear to auscultation and percussion. Cardiac exam reveals Rhythm is regular. First and second heart sounds normal. Abdominal exam reveals normal bowel sounds, no masses, no organomegaly right- sided colostomy bag is functioning well Extremities are nonedematous and both pedal pulses are present Neurologic exam is A&Ox3, patient has baseline lower body paralysis Psychologically seems neither anxious or depressed Skin is slightly erythematous to his distal extremities bilaterally _ (1) UTI (urinary tract infection) Encounter type: initial encounter Hematuria presence: Indwelling urinary catheter type: indwelling urethral catheter Urinary tract infection type: catheter-associated UTI Qualified Code(s): T83.511A - Infection and inflammatory reaction due to indwelling urethral catheter, initial encounter; N39.0 - Urinary tract infection, site not specified
[2018-05-12] MEDS: PANTOprazole 40 MG TAB PO SCH (08:55)
[2018-05-12] MEDS: MAGNESIUM OXIDE 400 MG TAB PO SCH (08:55)
[2018-05-12] MEDS: ATORVASTATIN 40 MG TAB PO SCH (08:55)
[2018-05-12] MEDS: RIVAROXABAN 20 MG TAB PO SCH (08:55)
[2018-05-12] MEDS: CHOLECALCIFEROL 1,000 UNITS TAB PO SCH (08:56)
[2018-05-12] MEDS: ESCITALOPRAM OXALATE 10 MG TAB PO SCH (08:56)
[2018-05-12] MEDS: CEROVITE ADV FORMULA TAB PO SCH (08:56)
[2018-05-12] MEDS: LACTOBACILLUS ACIDOPHILUS (FLORANEX) TAB PO SCH ×2 (08:56→20:14)
[2018-05-12] MEDS: BUDESONIDE/FORMOTEROL FUMARATE 160/4.5 60 PUFFS/INHALER INH SCH ×2 (08:57→20:14)
[2018-05-12] MEDS ORDERED: NON-FORMULARY MEDICATION (Cranberry [Cranberry] 400 MG) PO SCH (09:00)
--- NOTE | 2018-05-12 15:41 | Pharmacy Report ---
Pharmacy Abx Initial Consult - Date of Service May 12, 2018 - Pharmacy Dosing Scope Date of Consult: 05/12/18 Consultation requested by: Dr. Mojica Pharmacy is consulted to initiate Zosyn and Vancomycin IV dosing therapy, order appropriate labs and adjust drug dose/frequency. - Subjective The patient is a 87 year old M admitted on 05/11/18 22:59. - Objective Height: 5 ft 6 in Weight: 65.7 kg Vital Signs (Past 12hrs): Vital Signs Temp Pulse Resp BP Pulse Ox 05/12/18 07:15 36.7 C 66 16 122/72 100 Lab Results (24hrs): Laboratory Tests (24 Hours) 05/11/18 05/11/18 17:45 17:45 WBC 9.47 Neut # (Auto) 6.92 H Creatinine 0.83 Est Cr Clr Drug Dosing 57.2 Micro Results: 05/11/18 18:15 Urine Culture - Pending Urine,Straight Cath - Risk Factors for Resistance * History of infection with a multidrug-resistant organism: Pseudomonas in urine - 05/03/18 * Antimicrobial use within the last 90 days: patient was being treated with cefdinir for current UTI- 8/10 days completed - Assessment & Plan Assessment 87 year old M presenting to the ED with left lower extremity reddening that was first noticed earlier yesterday. Was seen in the ED on 05/03/18 for UTI with culture growing Pseudomonas, resistant to cipro and quinolones. Patient was treated with cefdinir 300mg BID and has completed 8/10 treatment days. Repeat urine culture is currently pending. Plan Vancomycin and Zosyn for treatment of Cellulitis of Left Leg and UTI + for Pseudomonas Vancomycin IV * Estimated PK Parameters: Vd 0.7 L/kg, Ronan 0.05 hr-1, t1/2 13.4 hr * Loading dose: 1500 mg (22.8 mg/kg) * Maintenance dose: 1000 mg IV (15 mg/kg) every 16 hours * Goal trough level for cellulitis : ~15 mcg/mL * Trough level ordered for 05/13/18 at 2330 Piperacillin/tazobactam * 4.5 g bolus administered over 30 minutes, then 3.375 g IV extended infusion every 8 hours for CrCl greater than 20 mL/min Pharmacy will continue to follow and will adjust dose/frequency as necessary. Thank you.
[2018-05-12] MEDS: VANCOMYCIN HCL 1,000 MG in SODIUM CHLORIDE 0.9% 250 ML IV SCH (15:52)
[2018-05-12] MEDS: DIGOXIN 0.125 MG TAB PO SCH (15:55)
[2018-05-13] MEDS: PIPERACILLIN/TAZOBACTAM 3.375 GM in DEXTROSE 5% 100 ML IV SCH ×3 (01:10→17:23)
[2018-05-13 07:39] LABS: Creatinine Clr Calc Pharmacy 43.5 ml/min; Est GFR (African American) 72.3; Est GFR (Non-African American) 62.4
[2018-05-13] MEDS: ESCITALOPRAM OXALATE 10 MG TAB PO SCH (08:17)
[2018-05-13] MEDS: RIVAROXABAN 20 MG TAB PO SCH (08:17)
[2018-05-13] MEDS: PANTOprazole 40 MG TAB PO SCH (08:17)
[2018-05-13] MEDS: LACTOBACILLUS ACIDOPHILUS (FLORANEX) TAB PO SCH ×2 (08:17→20:39)
[2018-05-13] MEDS: CEROVITE ADV FORMULA TAB PO SCH (08:17)
[2018-05-13] MEDS: VANCOMYCIN HCL 1,000 MG in SODIUM CHLORIDE 0.9% 250 ML IV SCH (08:17)
[2018-05-13] MEDS: CHOLECALCIFEROL 1,000 UNITS TAB PO SCH (08:18)
[2018-05-13] MEDS: BUDESONIDE/FORMOTEROL FUMARATE 160/4.5 60 PUFFS/INHALER INH SCH ×2 (08:18→20:39)
[2018-05-13] MEDS: MAGNESIUM OXIDE 400 MG TAB PO SCH (08:18)
[2018-05-13] MEDS: ATORVASTATIN 40 MG TAB PO SCH (08:18)
--- NOTE | 2018-05-13 08:37 | Pharmacy Report ---
Pharmacy Abx Dose Short Note - Date of Service May 13, 2018 - Assessment & Plan Assessment 87 year old M receiving vancomycin and Zosyn for treatment of L leg cellulitis and catheter associated UTI. Day # 2 of antimicrobial therapy. Microbiology 05/11/18 18:15 Urine,Straight Cath Urine Culture - Preliminary Pseudomonas aeruginosa - resistant to FQs Plan Vancomycin * SCr has increased slightly and I'm concerned that the current interval of q16h will produce a supratherapeutic trough. * Change to 1000 mg IV every 18 hours, empirically, in anticipation of higher trough level * Goal trough level : 10 to 15 mcg/mL * Trough level ordered for: 05/14/18 @ 0130 (prior to 4th overall dose but 1st dose with q18h interval, just to make sure this new interval would be appropriate) * If cellulitis is not purulent, may consider de-escalating to just Zosyn, as MRSA coverage would not be necessary Zosyn * Continue 3.375 gm q8h for CrCl > 20 mL/min Pharmacy will continue to follow and will adjust dose/frequency as necessary. Thank you.
--- NOTE | 2018-05-13 15:00 | Infectious Disease Consult ---
Date of Consultation May 13, 2018 Assessment & Plan (1) UTI (urinary tract infection): Patient with persistent urinary tract infection with pseudomonas aeruginosa in the setting of indwelling Gupta catheter. Unlikely to respond to oral cephalosporin. Given quinolone resistance, Zosyn should provide adequate coverage. Would give 5 days of IV Zosyn, and would recommend more frequent changing of Gupta catheter in hopes of preventing future infection. Would continue Vanco while on IV Zosyn to cover cellulitis, and could consider transition to oral antibiotic. Will follow. 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 Recently was found to have evidence of urinary tract infection with Pseudomonas, and had been receiving cefdinir. He was admitted on the because of several days of worsening left lower extremity erythema. He was started empirically on vancomycin and Zosyn. Blood cultures have been negative, urine cultures now still growing Pseudomonas resistant to quinolones. Patient has had some slight improvement in his left lower extremity erythema, has been afebrile, white count is normal. Has no feeling in his legs cannot describe pain. Allergies Allergy/AdvReac Type Severity Reaction Status Date / Time banana Allergy Mild Abdominal Verified 05/03/18 18:21 Pain nitrofurantoin Allergy Unknown Unknown Verified 05/03/18 18:21 Sulfa (Sulfonamide Allergy Unknown Unknown Verified 05/03/18 18:21 Antibiotics) NSAIDS (Non-Steroidal AdvReac Severe internal Verified 05/03/18 18:21 Anti-Inflamma bleeding Food Allergy Severe ANAPHYLAXIS Uncoded 05/03/18 18:21 WITH RADISHES/ DIFFICULTY BREATHING HORSERADISH Home Medications Home Medications Medication Instructions Recorded Confirmed Type Lactobacillus acidoph-L.bulgar 1 tab PO BID 01/12/18 05/11/18 History [Lactinex] atorvastatin 40 mg PO DAILY 01/12/18 05/11/18 History cholecalciferol (vitamin D3) 1,000 units PO DAILY 01/12/18 05/11/18 History [Vitamin D3] cranberry 400 mg PO DAILY 01/12/18 05/11/18 History digoxin 125 mcg PO DAILY 01/12/18 05/11/18 History escitalopram oxalate 10 mg PO DAILY 01/12/18 05/11/18 History fluticasone 1 spray INTRANASAL BID PRN 01/12/18 05/11/18 History hydrocortisone 1 applic TOPICAL DAILY PRN 01/12/18 05/11/18 History magnesium oxide 400 mg PO DAILY 01/12/18 05/11/18 History melatonin 3 mg PO HS PRN 01/12/18 05/11/18 History metaxalone 800 mg PO Q8H PRN 01/12/18 05/11/18 History mupirocin 1 applic TOPICAL TID PRN 01/12/18 05/11/18 History omeprazole 40 mg PO DAILY 01/12/18 05/11/18 History sodium chloride [Saline Nasal] 1 spray INTRANASAL BID PRN 01/12/18 05/11/18 History albuterol sulfate [ProAir HFA] 1 - 2 puff INHALATION Q4H PRN 02/22/18 05/11/18 History budesonide-formoterol [Symbicort] 1 puff INHALATION BID 02/22/18 05/11/18 History guaifenesin [Mucinex] 600 mg PO Q12H PRN 02/22/18 05/11/18 History albuterol sulfate 1 vial INHALATION Q6H PRN 03/29/18 05/11/18 History rivaroxaban [Xarelto] 20 mg PO DAILY 03/29/18 05/11/18 History clindamycin phosphate [Clindagel] 1 applic TOPICAL DAILY PRN 05/03/18 05/11/18 History pkfeoceaeeap-pzga-ebhfe acid 1 tab PO QAM 05/11/18 05/11/18 History [Spectravite Ultra Women] Patient History Medical History Acute UTI (Acute) CAD (coronary artery disease) (Chronic) Paroxysmal atrial fibrillation COPD (chronic obstructive pulmonary disease) (Chronic) Urinary retention (Resolved) Paraplegia (Chronic 05/20/12) Colostomy (Chronic 05/20/12) Hx pulmonary embolism (Chronic) Pacemaker (Chronic) Family history of cancer (10/26/12) Pyelonephritis SIRS (systemic inflammatory response syndrome) Sepsis Family History Other No pertinent family history Social History marital status: Current Living Situation: Spouse Other Information That Helps Us Care for You: No Feels Safe at Home: Yes Safety Concerns: Feels Safe At This Time Smoking Status: Never smoker Second Hand Exposure: No Hx Alcohol Use: No Hx Substance Use: No Beliefs That Will Affect Care: None Preferred Language: Macedonian Communication Ability: Effective Receiving Operator Required: No Review of Systems All systems were reviewed and are negative except as per HPI Physical Exam 2 Vital Signs (Past 24 Hours): Last Vital Signs Temp 36.6 C 05/13/18 07:35 Pulse 67 05/13/18 07:35 Resp 20 05/13/18 07:35 BP 131/72 05/13/18 07:35 Pulse Ox 100 05/13/18 07:35 Constitutional: WD/WN, vitals as above well nourished; no acute distress Eyes: PERRL, conjunctivae normal, anicteric sclerae ENMT: external ear and nose normal, oropharynx normal Neck: trachea midline, no thyromegaly neck nontender Respiratory: normal respiratory effort, lungs clear to auscultation normal percussion Cardiovascular: RRR, no murmur, no edema Heart Sounds: no gallop and no cardiac rub Gastrointestinal (Abdomen): normal bowel sounds, soft, nontender, no hepatosplenomegaly Right lower quadrant ostomy Musculoskeletal: Head/Neck/Chest: normocephalic, head atraumatic and neck supple Extremities: no clubbing Skin: no rashes, warm and dry Erythema left lower extremity below the knee Neurologic: awake Lower extremity paraplegia Psychiatric: A+Ox3, euthymic affect Genitourinary: Gupta catheter in place with clear urine Lymphatic: no cervical or axillary lymphadenopathy no inguinal lymphadenopathy Results & Data Laboratory Results BMP 05/13/18 07:00 Creatinine 1.06 Laboratory Results - last 48 hr 05/11/18 05/11/18 05/11/18 17:45 17:45 18:15 WBC 9.47 RBC 4.54 L Hgb 13.4 L Hct 39.6 L MCV 87.2 MCH 29.5 MCHC 33.8 RDW Std Deviation 43.5 RDW Coeff of Evelyne 13.7 Plt Count 197 MPV 9.7 Immature Gran % (Auto) 0.4 Neut % (Auto) 73.1 Lymph % (Auto) 9.6 [place] % (Auto) 8.7 Eos % (Auto) 7.8 Baso % (Auto) 0.4 Immature Gran # (Auto) 0.04 H Neut # (Auto) 6.92 H Lymph # (Auto) 0.91 L [place] # (Auto) 0.82 H Eos # (Auto) 0.74 H Baso # (Auto) 0.04 Sodium 131 L Potassium 4.0 Chloride 97 L Carbon Dioxide 27 Anion Gap 7.0 BUN 14 Creatinine 0.83 Est Cr Clr Drug Dosing 57.2 Est GFR ( Amer) 91.1 Est GFR (Non-Af Amer) 78.6 BUN/Creatinine Ratio 16.3 Glucose 169 H Calcium 8.9 Total Bilirubin 0.5 AST 27 ALT 36 Alkaline Phosphatase 89 Total Protein 7.7 Albumin 2.9 L Globulin 4.8 H Albumin/Globulin Ratio 0.6 L Lipase 111 Urine Color Yellow Urine Appearance Turbid H Urine pH 6.5 Ur Specific [place] 1.009 Urine Protein Negative Urine Glucose (UA) Negative Urine Ketones Negative Urine Blood 3+ H Urine Nitrite Negative Urine Bilirubin Negative Urine Urobilinogen Negative Ur Leukocyte Esterase 3+ H Urine WBC (Auto) >30 H Urine RBC (Auto) 0-4 U Hyaline Cast (Auto) 0 U Epithel Cells (Auto) 10-20 H Urine Bacteria (Auto) 4+ H Stl C. diff Tox B Gene 05/11/18 05/13/18 20:10 07:00 WBC RBC Hgb Hct MCV MCH MCHC RDW Std Deviation RDW Coeff of Evelyne Plt Count MPV Immature Gran % (Auto) Neut % (Auto) Lymph % (Auto) [place] % (Auto) Eos % (Auto) Baso % (Auto) Immature Gran # (Auto) Neut # (Auto) Lymph # (Auto) [place] # (Auto) Eos # (Auto) Baso # (Auto) Sodium Potassium Chloride Carbon Dioxide Anion Gap BUN Creatinine 1.06 Est Cr Clr Drug Dosing 43.5 Est GFR ( Amer) 72.3 Est GFR (Non-Af Amer) 62.4 BUN/Creatinine Ratio Glucose Calcium Total Bilirubin AST ALT Alkaline Phosphatase Total Protein Albumin Globulin Albumin/Globulin Ratio Lipase Urine Color Urine Appearance Urine pH Ur Specific [place] Urine Protein Urine Glucose (UA) Urine Ketones Urine Blood Urine Nitrite Urine Bilirubin Urine Urobilinogen Ur Leukocyte Esterase Urine WBC (Auto) Urine RBC (Auto) U Hyaline Cast (Auto) U Epithel Cells (Auto) Urine Bacteria (Auto) Stl C. diff Tox B Gene Neg C.diff Toxin B Diagnostic Findings Microbiology 05/11/18 18:15 Urine,Straight Cath Urine Culture - Final Pseudomonas aeruginosa ABDOMEN AND PELVIS CT WITHOUT CONTRAST CT DOSE: 269.20 mGy.cm HISTORY: Acute suprapubic abdominal pain. 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 suprapubic abd pain, RLQ colostomy TECHNIQUE: Multiaxial CT images of the abdomen and pelvis were performed without contrast. A dose lowering technique was utilized adhering to the principles of ALARA. COMPARISON STUDY: CT abdomen and pelvis 01/24/2018. FINDINGS: Limited study without the use of contrast. Trace right and small left pleural effusions. Mild dependent subsegmental bibasilar consolidation with bibasilar mucous plugging and bronchial wall thickening. Respiratory motion limits evaluation of the lung bases. No pneumatosis or pneumoperitoneum. Imaged inferior cardiac chambers are mildly enlarged. Pacer leads are noted overlying the right heart chambers. Cholelithiasis with contracted gallbladder. No CT evidence of acute cholecystitis. Unenhanced liver, spleen and adrenal glands are unremarkable. Moderate generalized pancreatic atrophy. Mild cortical scarring and parenchymal thinning of the bilateral kidneys, left greater than right. Mild nonspecific bilateral perinephric stranding. Cyst of the superior pole right kidney measures 3.1 cm. No renal calculi or obstructive uropathy. Prostamegaly with moderate cervical ventral wall thickening of the bladder. Gupta catheter is noted within urinary bladder lumen. Extensive calcification of the abdominal aorta without aneurysm. Infrarenal IVC filter. No adenopathy. Postoperative changes from prior subtotal colectomy with right lower quadrant ileostomy. Moderate debris-filled gastric distention. There are multiple dilated loops of small bowel measuring up to 3.8 cm with associated air-fluid levels. No discrete transition point identified. Stool noted about the rectal stump. No ascites or mesenteric inflammation. Soft tissues appear unremarkable. Suggested bone on the lateral right ninth rib. Demineralized appearance of the bones. Posterior narda around screw fusion hardware at T10-L3 with remote compression deformity at T11. IMPRESSION: 1. Postoperative changes from prior subtotal colectomy with right lower quadrant ileostomy. 2. Multiple dilated loops of small bowel with air-fluid levels are noted without discrete transition point identified. Findings suggest ileus or low- grade small bowel obstruction. Correlation clinically is required. 3. Cholelithiasis. 4. Trace right and small left pleural effusions with bibasilar dependent consolidation suggestive of atelectasis. 5. Prostamegaly with bladder wall thickening suggestive of chronic bladder outlet obstruction. Correlate with urinalysis. 6. Additional findings as above. Electronically signed by: Francisco Judd M.D. 05/11/2018 6:31 PM Dictated: 05/11/181820 Transcribed: 05/11/181820 _ (1) UTI (urinary tract infection) Encounter type: initial encounter Hematuria presence: Indwelling urinary catheter type: indwelling urethral catheter Urinary tract infection type: catheter-associated UTI Qualified Code(s): T83.511A - Infection and inflammatory reaction due to indwelling urethral catheter, initial encounter; N39.0 - Urinary tract infection, site not specified
[2018-05-13] MEDS: DIGOXIN 0.125 MG TAB PO SCH (15:59)
--- NOTE | 2018-05-13 21:48 | Hospitalist Progress Note ---
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 Concern due to left lower extremity reddening that was first noticed earlier today. Do not endorse fevers, chills, decreased appetite or other constitutional symptoms. Is seen by home care nurse weekly who has been tending to his sacral ulcer. Was seen in ED for concern for possible UTI 05/03/18 and nonspecific symptoms involving early satiety and UA was positive and decision made to treat pt at outpatient with cefdinir 300mg BID x 10days despite cultures growing pseudomonas resistant only to cipro and quinolones. Pt currently denies any pain around ostomy bag in RLQ today. Denies any change in drainage, stool is at baseline rate and appearance. Abdominal pain, possible Partial SBO -monitor, advance diet as tolerated -presentation may be c/w colitis 2/2 c. diff infection - certainly hi risk -- c. diff is negative (2) Cellulitis of left leg: On Vanc for skin infection. Will taper to PO meds, hwoever will continue on vanco for time being. (3) UTI (urinary tract infection): Repeat culture pending had completed 8 days of outpatient cefdinir for pseudomonas growing urine switched to vanc/zosyn here Given that patient's urine is showing pseudomonas that is resistant to FQ. Oral antibiotics are not going to work on this. Will continue zosyn, and will consult with ID. (4) CAD (coronary artery disease): continue statin (5) COPD (chronic obstructive pulmonary disease): continue inhalers Oxygen requirement at about baseline which is 2L -- mild exp wheeze on exam may likely be his baseline. Follow (6) Urinary retention: Cronin care (7) Paraplegia: routine care, fall precautions (8) Colostomy: routine care (9) Sacral ulcer: wound consult ordered. Per report is improving. Spent 35 minutes in management of patient. Updated . 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 His colostomy is working well. He denies any symptoms of dysuria. His lower extremity erythema has continue to recede. Patient denies any fever, chills, nausea, vomiting. Review of Systems ROS: well nourished well developed. She is chronically paraplegic due to a spinal cord injury No double vision blurry vision No problems with speech or swallowing No palpitations, chest pain or pressure No Wheezing or breathing issues No abdominal pain nausea vomiting diarrhea changes in appetite or weight ostomy function is without complaint this morning Improved skin rash No unusual bruising or bleeding No changes in memory or confusion Physical Exam 2 Vital Signs (Past 24 Hours): Last Vital Signs Temp 36.7 C 05/13/18 15:23 Pulse 78 05/13/18 15:59 Resp 20 05/13/18 15:23 BP 151/66 H 05/13/18 15:23 Pulse Ox 93 05/13/18 15:23 Physical Exam: The patient appeared well nourished Vital signs as documented. Head exam is unremarkable. normocephalic, atraumatic Neck is without jugular venous distension, thyromegaly, or lymphademopathy Lungs are clear to auscultation and percussion. Cardiac exam reveals Rhythm is regular. First and second heart sounds normal. Abdominal exam reveals normal bowel sounds, no masses, no organomegaly right- sided colostomy bag is functioning well Extremities are nonedematous and both pedal pulses are present Neurologic exam is A&Ox3, patient has baseline lower body paralysis Psychologically seems neither anxious or depressed Skin is slightly erythematous to his distal extremities bilaterally _ (1) UTI (urinary tract infection) Encounter type: initial encounter Hematuria presence: Indwelling urinary catheter type: indwelling urethral catheter Urinary tract infection type: catheter-associated UTI Qualified Code(s): T83.511A - Infection and inflammatory reaction due to indwelling urethral catheter, initial encounter; N39.0 - Urinary tract infection, site not specified
[2018-05-13] MEDS ORDERED: VANCOMYCIN TROUGH ONE (23:30)
[2018-05-14] MEDS ORDERED: VANCOMYCIN TROUGH ONE (01:30)
[2018-05-14] MEDS: PIPERACILLIN/TAZOBACTAM 3.375 GM in DEXTROSE 5% 100 ML IV SCH ×3 (01:30→17:23)
[2018-05-14] MEDS: VANCOMYCIN HCL 1,000 MG in SODIUM CHLORIDE 0.9% 250 ML IV SCH ×2 (01:30→19:56)
--- NOTE | 2018-05-14 08:12 | Hospitalist Progress Note ---
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 Concern due to left lower extremity reddening that was first noticed earlier today. Do not endorse fevers, chills, decreased appetite or other constitutional symptoms. Is seen by home care nurse weekly who has been tending to his sacral ulcer. Was seen in ED for concern for possible UTI 05/03/18 and nonspecific symptoms involving early satiety and UA was positive and decision made to treat pt at outpatient with cefdinir 300mg BID x 10days despite cultures growing pseudomonas resistant only to cipro and quinolones. Pt currently denies any pain around ostomy bag in RLQfor past 2 days(05/14) Denies any change in drainage, stool is at baseline rate and appearance. Abdominal pain, possible Partial SBO -monitor, advance diet as tolerated -presentation may be c/w colitis 2/2 c. diff infection - certainly hi risk -- c. diff is negative (2) Cellulitis of left leg: On Vanc for skin infection. Will taper to PO meds, however will continue on vanco for time being, as patient remains in the hospital. Cellulitis continues to improve. (3) UTI (urinary tract infection): UTI probably due to indwelling Cronin catheter Repeat culture pending had completed 8 days of outpatient cefdinir for pseudomonas growing urine switched to vanc/zosyn here Given that patient's urine is showing pseudomonas that is resistant to FQ. Oral antibiotics are not going to work on this. Will continue zosyn, until 05/15. This will be 5 days of treatment. (4) CAD (coronary artery disease): continue statin (5) COPD (chronic obstructive pulmonary disease): continue inhalers Oxygen requirement at about baseline which is 2L -- mild exp wheeze on exam may likely be his baseline. Follow (6) Urinary retention: Cronin care (7) Paraplegia: routine care, fall precautions (8) Colostomy: routine care (9) Sacral ulcer: Pressure ulcer of sacral region, stage 2, POA wound consult ordered. Per report is improving. Spent 25 minutes in management of patient. 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 He states no new complaints. His colostomy is working well. He denies any symptoms of dysuria. His lower extremity erythema has continued to recede. Patient denies any fever, chills, nausea, vomiting. Review of Systems ROS: well nourished well developed. She is chronically paraplegic due to a spinal cord injury No double vision blurry vision No problems with speech or swallowing No palpitations, chest pain or pressure No Wheezing or breathing issues No abdominal pain nausea vomiting diarrhea changes in appetite or weight ostomy function is without complaint this morning Improved skin rash No unusual bruising or bleeding No changes in memory or confusion Physical Exam 2 Vital Signs (Past 24 Hours): Last Vital Signs Temp 36.6 C 05/14/18 07:27 Pulse 62 05/14/18 07:27 Resp 20 05/14/18 07:27 BP 88/57 L 05/14/18 07:27 Pulse Ox 2 L 05/14/18 07:27 Physical Exam: The patient appeared well nourished Vital signs as documented. Head exam is unremarkable. normocephalic, atraumatic Neck is without jugular venous distension, thyromegaly, or lymphademopathy Lungs are clear to auscultation and percussion. Cardiac exam reveals Rhythm is regular. First and second heart sounds normal. Abdominal exam reveals normal bowel sounds, no masses, no organomegaly right- sided colostomy bag is functioning well Extremities are nonedematous and both pedal pulses are present Neurologic exam is A&Ox3, patient has baseline lower body paralysis Psychologically seems neither anxious or depressed Skin is slightly erythematous to his distal extremities bilaterally _ (1) UTI (urinary tract infection) Encounter type: initial encounter Hematuria presence: Indwelling urinary catheter type: indwelling urethral catheter Urinary tract infection type: catheter-associated UTI Qualified Code(s): T83.511A - Infection and inflammatory reaction due to indwelling urethral catheter, initial encounter; N39.0 - Urinary tract infection, site not specified
[2018-05-14] MEDS: CEROVITE ADV FORMULA TAB PO SCH (08:19)
[2018-05-14] MEDS: LACTOBACILLUS ACIDOPHILUS (FLORANEX) TAB PO SCH ×2 (08:19→19:59)
[2018-05-14] MEDS: PANTOprazole 40 MG TAB PO SCH (08:19)
[2018-05-14] MEDS: BUDESONIDE/FORMOTEROL FUMARATE 160/4.5 60 PUFFS/INHALER INH SCH ×2 (08:19→19:59)
[2018-05-14] MEDS: MAGNESIUM OXIDE 400 MG TAB PO SCH (08:20)
[2018-05-14] MEDS: ESCITALOPRAM OXALATE 10 MG TAB PO SCH (08:20)
[2018-05-14] MEDS: CHOLECALCIFEROL 1,000 UNITS TAB PO SCH (08:20)
[2018-05-14] MEDS: ATORVASTATIN 40 MG TAB PO SCH (08:20)
[2018-05-14 08:21] LABS: Creatinine Clr Calc Pharmacy 57.6 ml/min; Est GFR (African American) 92.4; Est GFR (Non-African American) 79.8
[2018-05-14] MEDS: RIVAROXABAN 20 MG TAB PO SCH (08:21)
--- NOTE | 2018-05-14 09:51 | Pharmacy Report ---
Pharmacy Abx Dose Short Note - Date of Service May 14, 2018 - Assessment & Plan Assessment 87 year old M receiving Vancomycin for treatment of L leg cellulitis; also on Zosyn for Pseudomonas UTI Day # 3 of antimicrobial therapy. Plan Vancomycin * Trough level of 12.6 mcg/mL (appropriately drawn) is therapeutic; please note this is an early level not reflective of Vancomycin at steady state. True trough may be higher, but should not be supratherapeutic. * Continue dose of 1000 mg IV every 18 hours * Goal trough level for cellulitis : 10 to 15 mcg/mL * Trough or random level ordered for: 05/16/18 @ 0730 to make sure Vancomycin remains within therapeutic range Pharmacy will continue to follow and will adjust dose/frequency as necessary. Thank you.
[2018-05-14] MEDS: DIGOXIN 0.125 MG TAB PO SCH (16:04)
[2018-05-15] MEDS: PIPERACILLIN/TAZOBACTAM 3.375 GM in DEXTROSE 5% 100 ML IV SCH ×3 (01:26→17:40)
[2018-05-15 07:37] LABS: Creatinine Clr Calc Pharmacy 43.9 ml/min; Est GFR (African American) 73.1; Est GFR (Non-African American) 63.1
[2018-05-15] MEDS: LACTOBACILLUS ACIDOPHILUS (FLORANEX) TAB PO SCH ×3 (08:48→21:08)
[2018-05-15] MEDS: ATORVASTATIN 40 MG TAB PO SCH (08:48)
[2018-05-15] MEDS: CEROVITE ADV FORMULA TAB PO SCH (08:48)
[2018-05-15] MEDS: CHOLECALCIFEROL 1,000 UNITS TAB PO SCH (08:48)
[2018-05-15] MEDS: BUDESONIDE/FORMOTEROL FUMARATE 160/4.5 60 PUFFS/INHALER INH SCH ×2 (08:48→21:08)
[2018-05-15] MEDS: ESCITALOPRAM OXALATE 10 MG TAB PO SCH (08:48)
[2018-05-15] MEDS: PANTOprazole 40 MG TAB PO SCH (08:48)
[2018-05-15] MEDS: RIVAROXABAN 20 MG TAB PO SCH (08:49)
[2018-05-15] MEDS: MAGNESIUM OXIDE 400 MG TAB PO SCH (08:49)
[2018-05-15] MEDS: VANCOMYCIN HCL 1,000 MG in SODIUM CHLORIDE 0.9% 250 ML IV SCH (14:10)
[2018-05-15] MEDS: DIGOXIN 0.125 MG TAB PO SCH (15:23)
[2018-05-15] MEDS ORDERED: ONDANSETRON INJ 2 MG/ML 2 ML VIAL IV ONE (17:55)
--- NOTE | 2018-05-15 19:13 | XRay Report ---
XR KUB CLINICAL HISTORY: abdominal pain pain COMPARISON STUDY: 06/02/2016 FINDINGS: Findings consistent with nonobstructive ileus. Several slightly distended air-filled loops of small bowel. Nondistended colon. No secondary evidence for free air. Unchanging consolidative subramanian ge left lung base. Postoperative changes considered stable thoracolumbar spine. Gupta catheter is in position. IMPRESSION: Nonobstructive ileus. The above report was generated using voice recognition software. It may contain grammatical, syntax or spelling errors. Electronically signed by: Amador Mock M.D. 05/15/2018 7:12 PM
[2018-05-15] MEDS: ACETAMINOPHEN 65 ML IV SCH (21:06)
[2018-05-15] MEDS ORDERED: SODIUM CHLORIDE 0.9% 500 ML IV SCH (21:15)
[2018-05-15] MEDS: SODIUM CHLORIDE 0.9% 1000ML 1,000 ML IV SCH (23:28)
[2018-05-16] MEDS: PIPERACILLIN/TAZOBACTAM 3.375 GM in DEXTROSE 5% 100 ML IV SCH ×3 (01:37→17:35)
[2018-05-16] MEDS: ACETAMINOPHEN 65 ML IV SCH ×3 (05:48→21:37)
[2018-05-16] MEDS ORDERED: VANCOMYCIN TROUGH ONE (07:30)
[2018-05-16] MEDS: VANCOMYCIN HCL 1,000 MG in SODIUM CHLORIDE 0.9% 250 ML IV SCH (08:24)
[2018-05-16] MEDS: BUDESONIDE/FORMOTEROL FUMARATE 160/4.5 60 PUFFS/INHALER INH SCH ×2 (08:24→20:12)
[2018-05-16] MEDS: PANTOprazole 40 MG TAB PO SCH (08:25)
[2018-05-16] MEDS: MAGNESIUM OXIDE 400 MG TAB PO SCH (08:25)
[2018-05-16] MEDS: CHOLECALCIFEROL 1,000 UNITS TAB PO SCH (08:25)
[2018-05-16] MEDS: CEROVITE ADV FORMULA TAB PO SCH (08:25)
[2018-05-16] MEDS: LACTOBACILLUS ACIDOPHILUS (FLORANEX) TAB PO SCH ×4 (08:25→20:12)
[2018-05-16] MEDS: ATORVASTATIN 40 MG TAB PO SCH (08:25)
[2018-05-16] MEDS: ESCITALOPRAM OXALATE 10 MG TAB PO SCH (08:25)
--- NOTE | 2018-05-16 10:48 | Hospitalist Progress Note ---
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 Concern due to left lower extremity reddening that was first noticed earlier today. Do not endorse fevers, chills, decreased appetite or other constitutional symptoms. Is seen by home care nurse weekly who has been tending to his sacral ulcer. Was seen in ED for concern for possible UTI 05/03/18 and nonspecific symptoms involving early satiety and UA was positive and decision made to treat pt at outpatient with cefdinir 300mg BID x 10days despite cultures growing pseudomonas resistant only to cipro and quinolones. Patient today is now complaining of diarrhea and abdominal pain. Will order a KUB, c. diff toxin. Will place patient on lactobacillus. Will limit pain medicine and recheck patient overnight and in PM. was at bedside and she was updated. 05/15 Abdominal pain, possible Partial SBO -monitor, advance diet as tolerated -presentation may be c/w colitis 2/2 c. diff infection - certainly hi risk -- c. diff is negative (earlier in hospital stay) (2) Cellulitis of left leg: On Vanc for skin infection. Will taper to PO meds, however will continue on vanco for time being, as patient remains in the hospital. Cellulitis continues to improve. (3) UTI (urinary tract infection): UTI probably due to indwelling Cronin catheter Repeat culture pending had completed 8 days of outpatient cefdinir for pseudomonas growing urine switched to vanc/zosyn here Given that patient's urine is showing pseudomonas that is resistant to FQ. Oral antibiotics are not going to work on this. Will continue zosyn, until 05/16. This will be 5 days of treatment. (4) CAD (coronary artery disease): continue statin (5) COPD (chronic obstructive pulmonary disease): continue inhalers Oxygen requirement at about baseline which is 2L -- mild exp wheeze on exam may likely be his baseline. Follow (6) Urinary retention: Cronin care (7) Paraplegia: routine care, fall precautions (8) Colostomy: routine care (9) Sacral ulcer: Pressure ulcer of sacral region, stage 2, POA wound consult ordered. Per report is improving. Spent 35 minutes in management of patient. 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 His only new complaint is the cramping that is occuring in his abdomen again. He is also now having loose watery stools in his colostomy. Patient also is noticing decreased appetite. He denies any symptoms of dysuria. His lower extremity erythema has continued to recede. Patient denies any fever, chills, nausea, vomiting. Review of Systems ROS: well nourished well developed. She is chronically paraplegic due to a spinal cord injury No double vision blurry vision No problems with speech or swallowing No palpitations, chest pain or pressure No Wheezing or breathing issues No abdominal pain nausea vomiting diarrhea changes in appetite or weight ostomy function is without complaint this morning Improved skin rash No unusual bruising or bleeding No changes in memory or confusion Physical Exam 2 Vital Signs (Past 24 Hours): Last Vital Signs Temp 37.3 C 05/15/18 15:46 Pulse 74 05/15/18 15:46 Resp 19 05/15/18 15:46 BP 101/50 L 05/15/18 15:46 Pulse Ox 98 05/15/18 15:46 Physical Exam: The patient appeared well nourished Vital signs as documented. Head exam is unremarkable. normocephalic, atraumatic Neck is without jugular venous distension, thyromegaly, or lymphademopathy Lungs are clear to auscultation and percussion. Cardiac exam reveals Rhythm is regular. First and second heart sounds normal. Abdominal exam reveals normal bowel sounds, no masses, no organomegaly right- sided colostomy bag is functioning well, however watery stools are noted. Extremities are nonedematous and both pedal pulses are present Neurologic exam is A&Ox3, patient has baseline lower body paralysis Psychologically seems neither anxious or depressed Skin is slightly erythematous to his distal extremities bilaterally _ (1) UTI (urinary tract infection) Encounter type: initial encounter Hematuria presence: Indwelling urinary catheter type: indwelling urethral catheter Urinary tract infection type: catheter-associated UTI Qualified Code(s): T83.511A - Infection and inflammatory reaction due to indwelling urethral catheter, initial encounter; N39.0 - Urinary tract infection, site not specified
[2018-05-16] MEDS: SODIUM CHLORIDE 0.9% 1000ML 1,000 ML IV SCH (12:05)
--- NOTE | 2018-05-16 12:31 | Hospitalist Progress Note ---
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 Concern due to left lower extremity reddening that was first noticed earlier today. Do not endorse fevers, chills, decreased appetite or other constitutional symptoms. Is seen by home care nurse weekly who has been tending to his sacral ulcer. Was seen in ED for concern for possible UTI 05/03/18 and nonspecific symptoms involving early satiety and UA was positive and decision made to treat pt at outpatient with cefdinir 300mg BID x 10days despite cultures growing pseudomonas resistant only to cipro and quinolones. C.diff was negative. Patient improved with lactobacillus. Adbominal pain also improved. Plan is for patient to be discharged on 2-1 Abdominal pain, possible Partial SBO -monitor, advance diet as tolerated -presentation may be c/w colitis 2/2 c. diff infection - certainly hi risk -- c. diff is negative (earlier in hospital stay) (2) Cellulitis of left leg: On Vanc for skin infection. Will taper to PO meds, however will continue on vanco for time being, as patient remains in the hospital. Cellulitis continues to improve. (3) UTI (urinary tract infection): UTI probably due to indwelling Cronin catheter Repeat culture pending had completed 8 days of outpatient cefdinir for pseudomonas growing urine switched to vanc/zosyn here Given that patient's urine is showing pseudomonas that is resistant to FQ. Oral antibiotics are not going to work on this. Will continue zosyn, until 05/16. This will be 5 days of treatment. Will stop antibiotics. (4) CAD (coronary artery disease): continue statin (5) COPD (chronic obstructive pulmonary disease): continue inhalers Oxygen requirement at about baseline which is 2L -- mild exp wheeze on exam may likely be his baseline. Follow (6) Urinary retention: Cronin care (7) Paraplegia: routine care, fall precautions (8) Colostomy: routine care (9) Sacral ulcer: Pressure ulcer of sacral region, stage 2, POA wound consult ordered. Per report is improving. Spent 25 minutes in management of patient. (10) Pacemaker: Subjective 87 yo male reports feeling much better today. Patient is denying any abdominal pain at this time. Physical Exam 2 Vital Signs (Past 24 Hours): Last Vital Signs Temp 36.6 C 05/16/18 07:16 Pulse 65 05/16/18 08:39 Resp 16 05/16/18 07:16 BP 103/58 L 05/16/18 08:39 Pulse Ox 99 05/16/18 07:16 Physical Exam: The patient appeared well nourished Vital signs as documented. Head exam is unremarkable. normocephalic, atraumatic Neck is without jugular venous distension, thyromegaly, or lymphademopathy Lungs are clear to auscultation and percussion. Cardiac exam reveals Rhythm is regular. First and second heart sounds normal. Abdominal exam reveals normal bowel sounds, no masses, no organomegaly right- sided colostomy bag is functioning well. Extremities are nonedematous and both pedal pulses are present Neurologic exam is A&Ox3, patient has baseline lower body paralysis Psychologically seems neither anxious or depressed Skin is slightly erythematous to his distal extremities bilaterally _ (1) UTI (urinary tract infection) Encounter type: initial encounter Hematuria presence: Indwelling urinary catheter type: indwelling urethral catheter Urinary tract infection type: catheter-associated UTI Qualified Code(s): T83.511A - Infection and inflammatory reaction due to indwelling urethral catheter, initial encounter; N39.0 - Urinary tract infection, site not specified
[2018-05-16 13:04] LABS: Basophils # (auto) 0.02 K/uL (0-0.2); Basophils % (auto) 0.2 %; Eosinophils # (auto) 0.48 K/uL (0-0.5); Eosinophils % (auto) 5.1 %; Hematocrit (blood only) 36.1 % (42-52); Hemoglobin 12.1 g/dL (14.0-18.0); Immature Granulocytes # (auto) 0.04 K/uL (0.00-0.02); Immature Granulocytes % (auto) 0.4 %; Lymphocytes # (auto) 0.83 K/uL (1.2-3.4); Lymphocytes % (auto) 8.8 %; Mean Corpuscular Hgb Conc 33.5 g/dL (32-36); Mean Corpuscular Volume 89.6 fL (80-100); Mean Platelet Volume 9.6 fL (7.4-10.4); Monocytes % (auto) 8.5 %; Neutrophils # (auto) 7.26 K/uL (1.4-6.5); Platelet Count 213 K/uL (130-400); RDW Coefficient of Variation 13.8 % (11.5-14.5); RDW Standard Deviation 45.1 fL (36.4-46.3); Red Blood Count 4.03 M/uL (4.7-6.1); White Blood Count 9.43 K/uL (4.8-10.8)
[2018-05-16 13:17] LABS: BUN Creatinine Ratio 21.2 (10-20); Calcium 8.7 mg/dl (8.5-10.1); Creatinine Clr Calc Pharmacy 38.1 ml/min; Est GFR (African American) 61.6; Est GFR (Non-African American) 53.1; Potassium 3.8 mmol/L (3.5-5.1)
--- NOTE | 2018-05-16 14:15 | Pharmacy Report ---
Pharmacy Abx Dose Short Note - Date of Service May 16, 2018 - Assessment & Plan Assessment 87 year old M receiving vancomycin and Zosyn for treatment of cellulitis and catheter-associated UTI. Day # 5 of antimicrobial therapy. Plan Vancomycin * Vancomycin trough obtained this morning at 0724 and resulted at 17.1 (at goal) * Will continue vancomycin 1 g IV q18h * Renal function has been fairly stable, but a slight increase in SCr noted ( 0.8 -> 1.10 -> 1.21) * If patient remains on vancomycin, consider follow-up vancomycin trough in 3-4 doses due to change in renal function * Will obtain follow-up SCr tomorrow to further assess renal function Zosyn * Today is day 5 of treatment, which is sufficient for UTI. Spoke with hospitalist who will d/c. Pharmacy will continue to follow and will adjust dose/frequency as necessary. Thank you.
[2018-05-16] MEDS: DIGOXIN 0.125 MG TAB PO SCH (15:29)
[2018-05-16] MEDS ORDERED: RIVAROXABAN 20 MG TAB PO SCH (16:30)
--- NOTE | 2018-05-16 20:45 | Infectious Disease Progress Nt ---
Date of Service May 16, 2018 Assessment & Plan (1) UTI (urinary tract infection): Patient with persistent urinary tract infection with pseudomonas aeruginosa in the setting of indwelling Gupta catheter. No response to outpatient oral cephalosporin. Given quinolone resistance, Zosyn should provide adequate coverage. Would give 5 days of IV Zosyn, and would recommend more frequent changing of Gupta catheter in hopes of preventing future infection. Would continue Vanco while on IV Zosyn to cover cellulitis, and could consider transition to oral antibiotic. Will follow. (2) Pseudomonas aeruginosa infection: (3) Cellulitis of left leg: Subjective Patient seen in follow-up for urinary tract infection and cellulitis. Appears to be slowly improving. Tolerating antibiotic without apparent difficulty. No new complaints. Review of Systems All systems reviewed & are unremarkable except as noted in HPI & below Physical Exam 2 Vital Signs (Past 24 Hours): Last Vital Signs Temp 36.4 C L 05/16/18 15:00 Pulse 72 05/16/18 15:29 Resp 17 05/16/18 15:00 BP 115/64 05/16/18 15:00 Pulse Ox 99 05/16/18 15:00 Constitutional: WD/WN, vitals as above well nourished; no acute distress Eyes: PERRL, conjunctivae normal, anicteric sclerae ENMT: external ear and nose normal, oropharynx normal Neck: trachea midline, no thyromegaly neck nontender Respiratory: normal respiratory effort, lungs clear to auscultation normal percussion Cardiovascular: RRR, no murmur, no edema Heart Sounds: no gallop and no cardiac rub Gastrointestinal (Abdomen): normal bowel sounds, soft, nontender, no hepatosplenomegaly Musculoskeletal: Head/Neck/Chest: normocephalic, head atraumatic and neck supple Extremities: no clubbing Skin: no rashes, warm and dry Neurologic: awake Psychiatric: A+Ox3, euthymic affect Lymphatic: no cervical or axillary lymphadenopathy no inguinal lymphadenopathy Results & Data Laboratory Results Short CBC 05/16/18 Range/Units 07:29 WBC 9.43 (4.8-10.8) K/uL Hgb 12.1 L (14.0-18.0) g/dL Hct 36.1 L (42-52) % Plt Count 213 (130-400) K/uL BMP 05/16/18 07:29 Sodium 131 L Potassium 3.8 Chloride 99 Carbon Dioxide 26 BUN 26 H Creatinine 1.21 Glucose 117 H Calcium 8.7 Diagnostic Findings Microbiology 05/11/18 18:15 Urine,Straight Cath Urine Culture - Final Pseudomonas aeruginosa XR KUB CLINICAL HISTORY: abdominal pain pain COMPARISON STUDY: 06/02/2016 FINDINGS: Findings consistent with nonobstructive ileus. Several slightly distended air-filled loops of small bowel. Nondistended colon. No secondary evidence for free air. Unchanging consolidative change left lung base. Postoperative changes considered stable thoracolumbar spine. Gupta catheter is in position. IMPRESSION: Nonobstructive ileus. The above report was generated using voice recognition software. It may contain grammatical, syntax or spelling errors. Electronically signed by: Amador Mock M.D. 05/15/2018 7:12 PM Dictated: 05/15/181908 Transcribed: 05/15/181908 _ (1) UTI (urinary tract infection) Encounter type: initial encounter Hematuria presence: Indwelling urinary catheter type: indwelling urethral catheter Urinary tract infection type: catheter-associated UTI Qualified Code(s): T83.511A - Infection and inflammatory reaction due to indwelling urethral catheter, initial encounter; N39.0 - Urinary tract infection, site not specified
[2018-05-17] MEDS: PIPERACILLIN/TAZOBACTAM 3.375 GM in DEXTROSE 5% 100 ML IV SCH (01:42)
[2018-05-17] MEDS: VANCOMYCIN HCL 1,000 MG in SODIUM CHLORIDE 0.9% 250 ML IV SCH (01:42)
[2018-05-17] MEDS: ACETAMINOPHEN 65 ML IV SCH (05:43)
[2018-05-17 07:09] VITALS: TEMP 97.5; O2SAT 98
[2018-05-17 07:10] LABS: Creatinine Clr Calc Pharmacy 46.1 ml/min; Est GFR (African American) 77.5; Est GFR (Non-African American) 66.9
[2018-05-17] MEDS: ESCITALOPRAM OXALATE 10 MG TAB PO SCH (08:24)
[2018-05-17] MEDS: LACTOBACILLUS ACIDOPHILUS (FLORANEX) TAB PO SCH ×2 (08:24→12:16)
[2018-05-17] MEDS: CEROVITE ADV FORMULA TAB PO SCH (08:24)
[2018-05-17] MEDS: PANTOprazole 40 MG TAB PO SCH (08:24)
[2018-05-17] MEDS: ATORVASTATIN 40 MG TAB PO SCH (08:25)
[2018-05-17] MEDS: BUDESONIDE/FORMOTEROL FUMARATE 160/4.5 60 PUFFS/INHALER INH SCH (08:25)
[2018-05-17] MEDS: CHOLECALCIFEROL 1,000 UNITS TAB PO SCH (08:25)
[2018-05-17] MEDS: MAGNESIUM OXIDE 400 MG TAB PO SCH (08:25)
[2018-05-17 11:16] VITALS: BP 105/47; PULSE 65
--- NOTE | 2018-05-23 07:06 | Discharge Summary ---
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 Concern due to left lower extremity reddening that was first noticed earlier today. Do not endorse fevers, chills, decreased appetite or other constitutional symptoms. Is seen by home care nurse weekly who has been tending to his sacral ulcer. Recently had a routine oupatient visit with PCP (Saurav Yang) and was doing well. Was seen in ED for concern for possible UTI 05/03/18 and nonspecific symptoms involving early satiety and UA was positive and decision made to treat pt at outpatient with cefdinir 300mg BID x 10days. Culture resulted growing pseudomonas resistant only to cipro and quinolones. Pt does endorse occasional pain around ostomy bag in RLQ that has been increasing in frequency in the last two months. Denies any change in drainage, stool is at baseline rate and appearance. Principal Diagnosis cellulitis/ UTI Discharge Exam The patient appeared well nourished Vital signs as documented. Head exam is unremarkable. normocephalic, atraumatic Neck is without jugular venous distension, thyromegaly, or lymphademopathy Lungs are clear to auscultation and percussion. Cardiac exam reveals Rhythm is regular. First and second heart sounds normal. Abdominal exam reveals normal bowel sounds, no masses, no organomegaly right- sided colostomy bag is functioning well. Extremities are nonedematous and both pedal pulses are present Neurologic exam is A&Ox3, patient has baseline lower body paralysis Psychologically seems neither anxious or depressed Skin is slightly erythematous to his distal extremities bilaterally Discharge Data Allergies Allergy/AdvReac Type Severity Reaction Status Date / Time banana Allergy Mild Abdominal Verified 05/03/18 18:21 Pain nitrofurantoin Allergy Unknown Unknown Verified 05/03/18 18:21 Sulfa (Sulfonamide Allergy Unknown Unknown Verified 05/03/18 18:21 Antibiotics) NSAIDS (Non-Steroidal AdvReac Severe internal Verified 05/03/18 18:21 Anti-Inflamma bleeding Food Allergy Severe ANAPHYLAXIS Uncoded 05/03/18 18:21 WITH RADISHES/ DIFFICULTY BREATHING HORSERADISH Consultations 05/11/18 20:05 ED Decision to Admit Stat 05/12/18 00:27 Consult Case Management - Discharge Planning Routine 05/13/18 12:18 Consult Infectious Diseases Routine Ordered Studies 05/11/18 17:29 CT abd pelvis wo con Stat US venous doppler LE LT Stat Hospital Course (1) Partial small bowel obstruction: 87M with PMH significant for Coronary artery disease- occlusive, Chronic obstructive pulmonary disease, 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 Concern due to left lower extremity reddening that was first noticed earlier today. Do not endorse fevers, chills, decreased appetite or other constitutional symptoms. Is seen by home care nurse weekly who has been tending to his sacral ulcer. Was seen in ED for concern for possible UTI 05/03/18 and nonspecific symptoms involving early satiety and UA was positive and decision made to treat pt at outpatient with cefdinir 300mg BID x 10days despite cultures growing pseudomonas resistant only to cipro and quinolones. C.diff was negative. Patient improved with lactobacillus. Abdominal pain also improved. Patient to be discharged on 2-1 Abdominal pain, possible Partial SBO -monitor, advance diet as tolerated -presentation may be c/w colitis 2/2 c. diff infection - certainly hi risk -- c. diff is negative (earlier in hospital stay) This resolved (2) Cellulitis of left leg: On Vanc for skin infection. Will taper to PO meds, however will continue on vanco for time being, as patient remains in the hospital. Cellulitis continues to improve. Will switch to keflex and bactrim on discharge (3) UTI (urinary tract infection): UTI probably due to indwelling Cronin catheter Repeat culture pending had completed 8 days of outpatient cefdinir for pseudomonas growing urine switched to vanc/zosyn here Given that patient's urine is showing pseudomonas that is resistant to FQ. Oral antibiotics are not going to work on this. Will continue zosyn, until 05/16. This will be 5 days of treatment. Will stop antibiotics. (4) CAD (coronary artery disease): continue statin (5) COPD (chronic obstructive pulmonary disease): continue inhalers Oxygen requirement at about baseline which is 2L -- mild exp wheeze on exam may likely be his baseline. Follow (6) Urinary retention: Cronin care (7) Paraplegia: routine care, fall precautions (8) Colostomy: routine care (9) Sacral ulcer: Pressure ulcer of sacral region, stage 2, POA wound consult ordered. Per report is improving. (10) Pacemaker: Total Time Total Time Spent Total Time Spent (In Minutes): 33 Total Time Includes: Examination of the Patient, Discharge Planning and Medication Reconciliation Discharge Plan Discharge Items Patient Disposition: Home - Home Health Services Reason For Visit: CELLULITIS,ABD PAIN Discharge Diagnosis: Cellulitis/ UTI Discharge Goals: Decrease discomfort Activity: Resume your previous activity Non-emergency contact: Primary Care Provider Call non-emergency contact if: you have any medication questions Follow-up/Referrals: Iam Yang MD [Primary Care Provider] - 05/20/18 11:00 am (Please, follow up with Dr. Iam Yang in the [facility] [place] [facility] (beside [facility]) on SundayMay 20 at 11:00 am. *If you need to change this appointment, call the office at [phone].) Diet: Regular Addtl Provider Instructions: You have been treated for Urinary tract infection and cellulitis. UTI was treated fully. You will continue anitbiotics for 7 more days to treat cellulitis. Would recommend more frequent changing of Cronin catheter in hopes of preventing future infection. Prescriptions: New cephalexin [Keflex] 500 mg capsule 500 mg PO BID Qty: 14 RF: 0 sulfamethoxazole-trimethoprim [Bactrim DS] 800-160 mg tablet 1 tab PO Q12H Qty: 14 RF: 0 Continue atorvastatin 40 mg tablet 40 mg PO DAILY RF: 0 omeprazole 40 mg capsule,delayed release(DR/EC) 40 mg PO DAILY RF: 0 mupirocin 2 % ointment 1 applic Topical TID PRN (Reason: Skin Irritation) RF: 0 digoxin 125 mcg tablet 125 mcg PO DAILY RF: 0 escitalopram oxalate 10 mg tablet 10 mg PO DAILY RF: 0 metaxalone 800 mg tablet 800 mg PO Q8H PRN (Reason: Muscle Spasm) RF: 0 melatonin 3 mg Tablet 3 mg PO HS PRN (Reason: Sleep) RF: 0 magnesium oxide 400 mg (241.3 mg magnesium) Tablet 400 mg PO DAILY RF: 0 cranberry 400 mg Capsule 400 mg PO DAILY RF: 0 hydrocortisone 2.5 % Cream 1 applic TOPICAL DAILY PRN (Reason: Skin Irritation) RF: 0 fluticasone 50 mcg/actuation Badger,Suspension 1 spray INTRANASAL BID PRN (Reason: Nasal Congestion) RF: 0 sodium chloride [Saline Nasal] 0.65 % Aerosol,Badger 1 spray INTRANASAL BID PRN (Reason: Nasal Dryness) RF: 0 Lactobacillus acidoph-L.bulgar [Lactinex] 100 million cell Granules In Packet 1 tab PO BID RF: 0 cholecalciferol (vitamin D3) [Vitamin D3] 1,000 unit Tablet 1,000 units PO DAILY RF: 0 albuterol sulfate [ProAir HFA] 90 mcg/actuation Hfa Aerosol Inhaler 1 - 2 puff INHALATION Q4H PRN (Reason: Shortness Of Breath Or Wheezing) RF: 0 budesonide-formoterol [Symbicort] 160-4.5 mcg/actuation Hfa Aerosol Inhaler 1 puff INHALATION BID RF: 0 guaifenesin [Mucinex] 600 mg Tablet Extended Release 12hr 600 mg PO Q12H PRN (Reason: Congestion) RF: 0 albuterol sulfate 2.5 mg /3 mL (0.083 %) solution for nebulization 1 vial Inhalation Q6H PRN (Reason: Shortness Of Breath Or Wheezing) RF: 0 rivaroxaban 20 mg tablet 20 mg PO DAILY RF: 0 clindamycin phosphate [Clindagel] 1 % Gel, Once Daily 1 applic TOPICAL DAILY PRN (Reason: Irritation) RF: 0 xqicrusjaize-ipbx-nifnd acid 18-400 mg-mcg tablet 1 tab PO QAM RF: 0 Stand-Alone Forms: [facility] Discharge Orders: Discharge Order (Routine); Ordered 05/17/18 Ordered By: Max Mclean Admission Data Admit Date/Time: 05/13/18 15:21 Attending Provider: Max Mclean Admit Provider: Alisia Mojica Primary Care Provider: Iam Yang Other Providers: Jason Carolina Service: Medical Other Interventions: Discharge Summary Assessment (RN) Last Done: 05/17/18 11:48 DC Date/Time DO NOT enter until pt leaves facility: 05/17/18 13:46
== END 2018-05-17 13:46 | disposition home health service (06) | DRG 699 ==
LOC: 4E 17:08 → ED 17:08 → SUATTDRO 22:59 → 4E 23:48

== ENCOUNTER 2019-04-04 16:27 | Inpatient (IN) ==
[2019-04-04 17:12] LABS: Basophils # (auto) 0.06 K/uL (0-0.2); Basophils % (auto) 0.5 %; Eosinophils # (auto) 0.72 K/uL (0-0.5); Eosinophils % (auto) 6.5 %; Hematocrit (blood only) 42.1 % (42-52); Hemoglobin 14.4 g/dL (14.0-18.0); Immature Granulocytes # (auto) 0.03 K/uL (0.00-0.02); Immature Granulocytes % (auto) 0.3 %; Lymphocytes # (auto) 1.55 K/uL (1.2-3.4); Mean Corpuscular Hemoglobin 30.5 pg (25-34); Mean Corpuscular Hgb Conc 34.2 g/dL (32-36); Mean Corpuscular Volume 89.2 fL (80-100); Mean Platelet Volume 9.6 fL (7.4-10.4); Monocytes % (auto) 10.8 %; Neutrophils # (auto) 7.54 K/uL (1.4-6.5); Neutrophils % (auto) 67.9 %; Platelet Count 192 K/uL (130-400); RDW Coefficient of Variation 14.2 % (11.5-14.5); RDW Standard Deviation 46.5 fL (36.4-46.3); Red Blood Count 4.72 M/uL (4.7-6.1)
[2019-04-04 17:14] LABS: Appearance Urine Cloudy (Clear); Bacteria Urine Automated Negative (Negative); Bilirubin Urine Negative (Negative); Blood Urine 2+ (Negative); Color Urine Yellow; Epithelial Cell Urine Auto 0-5 /lpf (0-5); Glucose Urine UA Negative (Negative); Ketones Urine Negative (Negative); Leukocyte Esterase Urine 3+ (Negative); Nitrite Urine Negative (Negative); Protein Urine 1+ (Negative); Urobilinogen Urine Negative (Negative); WBC Urine Automated >30 /hpf (0-5); pH Urine 6.5 (4.5-7.5)
[2019-04-04 17:34] LABS: BUN Creatinine Ratio 10.3 (10-20); Calcium 10.2 mg/dl (8.5-10.1); Est GFR (Non-African American) 66.4
[2019-04-04] MEDS ORDERED: SODIUM CHLORIDE 0.9% 1000ML 500 ML IV ONE (17:50)
--- NOTE | 2019-04-04 18:04 | XRay Report ---
XR chest 1V portable HISTORY: 88 years-old Male ro pna acute shortness of breath with possible pneumonia COMPARISON: Chest radiograph 02/25/2019 TECHNIQUE: Portable AP view of the chest FINDINGS: Cardiomediastinal and hilar silhouettes are unchanged. Left subclavian pacer/AICD is unchanged. Hyper inflation with chronic blunting of the costophrenic angles. Increased lucency of the lungs areas of u nchanged moderate circumferential coarsening suggests emphysema. No pneumothorax, large pleural effus ion, overt pulmonary edema or focal airspace consolidation typical for pneumonia. Unchanged mild medi al left lung base scarring/atelectasis. Degenerative changes of the shoulders and spine. Extensive fu adria hardware of the thoracolumbar spine. IMPRESSION: Chronic findings as above without acute process. ACT 112: Negative or not required by law. The above report was generated using voice recognition software. It may contain grammatical, syntax o r spelling errors. Electronically signed by: Francisco Judd M.D. 04/04/2019 6:03 PM
[2019-04-04 18:45] LABS: Influenza A virus by PCR Neg for Influ A (Neg); Influenza B virus by PCR Neg for Influ B (Neg)
[2019-04-04] MEDS ORDERED: cefTRIAXone SODIUM 1,000 MG/50 ML BAG IV STA (19:06)
--- NOTE | 2019-04-04 19:27 | History & Physical Report ---
Date of Service April 04, 2019 Assessment & Plan (1) Sepsis associated hypotension: Admits to PCU on telemetry Vital signs every 4 hours Started ceftriaxone in the ER and continued on the floor. Ceftriaxone 2 g IV daily. Follow-up urine and blood cultures CBC CMP daily Replenish electrolytes DVT prophylaxis [place] ToxiBan 20 mg p.o. daily. Full code Present on Admission?: Yes (2) UTI (urinary tract infection): As discussed above. Pending urine culture. already saw the patient in the ER and recommended not to change urinary catheter anymore. Continue cranberry 400 mg p.o. daily. Continue oxybutynin chloride 5 mg tablet p.o. 4 times daily. Present on Admission?: Yes (3) Pulmonary hypertension: Appears to be stable at this time continue. Continue home medicine. (4) Post-traumatic paraplegia: (5) Hyperlipidemia: (6) Ischemic cardiomyopathy: Appears to be stable now. Continue digoxin 125 MCG's p.o. daily. Continue magnesium oxide 400 mg p.o. daily. (7) CAD (coronary artery disease): As the above. Continue telemetry Present on Admission?: Yes (8) COPD (chronic obstructive pulmonary disease): Appears to be stable for now. Continue Symbicort 1 puff twice daily, albuterol sulfate every 6 hours as needed, pro-air HFA 2 puffs every 4 hours as needed. Continue guaifenesin 600 mg p.o. every 12 as needed. Present on Admission?: Yes (9) Urinary retention: As already discussed. Continue urinary catheter as recommended by Dr. Sweeney. Present on Admission?: Yes (10) Depression: Stable now continue escitalopram 10 mg p.o. daily. Present on Admission?: Yes (11) Hyperlipidemia: Continue home medicine atorvastatin 40 mg p.o. daily Present on Admission?: Yes (12) Paroxysmal A-fib: Continue rivaroxaban 20 mg p.o. daily. Present on Admission?: Yes History of Present Illness Chief Complaint: Sepsis and urinary tract infection Primary Care Provider: Iam Yang MD Patient is a 88 years old male with past medical history of colostomy, urinary retention, COPD, paroxysmal atrial fibrillation with pacemaker, coronary artery disease, hyperlipidemia, 6 ICD implanted cardioverter defibrillator who was brought to the emergency room with a complaint by patient of urinary symptoms started today. Per nursing staff, the patient has a Gupta in due to paralysis from the leg down. Patient stated that she called EMS today because she believed that patient have another UTI. Patient states that patient had urinary tract infection 2 weeks ago and he was treated with doxycycline and Bactrim. She also noted that patient has a right foot cellulitis. Patient usually uses 2 L of supplemental oxygen. Patient had his urinary catheter changed yesterday. Patient denies fever, chills, chest pain, shortness of breath, abdominal pain, frequency, urgency. Patient was able to answer to questions appropriately. Patient mentioned that patient urine was cloudy. Labs are reviewed: Which shows WBCs 11.10, hematocrit 42.1, hemoglobin 14.4, platelets 192, PT 15.3, INR 1.5, APTT 44.1. Sodium 135, potassium 4, chloride 98, BUN 10, creatinine 1, GFR 66.4, lactate 2.6, repeated lactate 1.8. Urine appears to be cloudy, 2+ positive blood negative nitrate 3+ positive leukocyte esterase over 30 WBCs negative for bacteria. Negative for influenza A&B. Chest x-ray is cardiomediastinal and hilar silhouette are unchanged. Left subclavian/AICD pacer is unchanged. Hyperinflation with chronic blunting of the costophrenic angles. Increased lucency of the lungs areas of unchanged moderate coarsening suggesting emphysema. No pneumothorax, large pleural effusion, overt pulmonary edema or focal airspace consolidation typical for pneumonia. Unchanged mild medial left lung base scaring/atelectasis. Degenerative changes of the shoulder and spine. Extensive fusion hardware of the thoracolumbar spine. Decision was made to admit patient for sepsis most likely due to urinary tract infection at PCU on telemetry. Allergies Allergy/AdvReac Type Severity Reaction Status Date / Time banana Allergy Mild Abdominal Verified 04/04/19 17:34 Pain nitrofurantoin Allergy Unknown Unknown Verified 04/04/19 17:34 Sulfa (Sulfonamide Allergy Unknown Unknown Verified 04/04/19 17:34 Antibiotics) NSAIDS (Non-Steroidal AdvReac Severe internal Verified 04/04/19 17:34 Anti-Inflamma bleeding Food Allergy Severe ANAPHYLAXIS Uncoded 04/04/19 17:34 WITH RADISHES/ DIFFICULTY BREATHING HORSERADISH Home Medications Home Medications Medication Instructions Recorded Confirmed Type Lactinex 1 tab PO BID 01/12/18 04/04/19 History atorvastatin 40 mg PO DAILY 01/12/18 04/04/19 History cholecalciferol (vitamin D3) 1,000 units PO DAILY 01/12/18 04/04/19 History [Vitamin D3] cranberry 400 mg PO DAILY 01/12/18 04/04/19 History hydrocortisone 1 applic TOPICAL DAILY PRN 01/12/18 04/04/19 History magnesium oxide 400 mg PO DAILY 01/12/18 04/04/19 History melatonin 3 mg PO HS PRN 01/12/18 04/04/19 History omeprazole 40 mg PO DAILY 01/12/18 04/04/19 History sodium chloride [Saline Nasal] 1 spray INTRANASAL BID PRN 01/12/18 04/04/19 History Symbicort 1 puff INHALATION BID 02/22/18 04/04/19 History albuterol sulfate [ProAir HFA] 1 - 2 puff INHALATION Q4H PRN 02/22/18 04/04/19 History guaifenesin [Mucinex] 600 mg PO Q12H PRN 02/22/18 04/04/19 History albuterol sulfate 1 vial INHALATION Q6H PRN 03/29/18 04/04/19 History [id number] acid 1 tab PO QAM 05/11/18 04/04/19 History mupirocin 2 % topical ointment 1 applic TOPICAL TID PRN #22 gm 09/19/18 04/04/19 Rx oxybutynin chloride 5 mg tablet 5 mg PO QID tab 11/12/18 04/04/19 History rivaroxaban 20 mg tablet 20 mg PO DAILY #30 tab 01/24/19 04/04/19 Rx diaper,brief,adult,disposable #32 ea 02/20/19 03/20/19 Rx nystatin 100,000 unit/gram topical 1 appln TOP TID #30 gm 03/17/19 04/04/19 Rx powder digoxin 125 mcg (0.125 mg) tablet 125 mcg PO DAILY #90 tab 04/04/19 04/04/19 Rx escitalopram oxalate 10 mg PO DAILY 04/04/19 04/04/19 History Past Med/Surg History Medical History Acrochordon Acute UTI (Inactive) Allergic rhinitis Bacteremia Blister of foot Bloating Breast lump C. difficile diarrhea CAD (coronary artery disease) (Chronic) Cauda equina syndrome with neurogenic bladder Chronic indwelling Gupta catheter (Acute) Colostomy (Chronic 05/20/12) COPD (chronic obstructive pulmonary disease) (Chronic) Coronary artery disease, occlusive (Acute) Decubitus ulcer of sacral region Diarrhea Elevated prostate specific antigen (PSA) Esophageal reflux (Acute) Family history of cancer (10/26/12) Folliculitis Herpes zoster Hiatal hernia (Acute) History of pseudomembranous enterocolitis History of skin pruritus Hospital discharge follow-up Hx pulmonary embolism (Chronic) Hyperlipidemia (Acute) Hyponatremia Hypotension ICD (implantable cardioverter-defibrillator) in place (Acute) Incontinence Influenza Influenza A Ischemic cardiomyopathy (Acute) Left ankle injury Muscle spasm Myocardial infarction Neoplasm of uncertain behavior of skin Neurogenic bladder (Acute) Pacemaker (Chronic) Paraplegia (Resolved 05/20/12) Paroxysmal atrial fibrillation Personal history of urinary (tract) infection Pneumonia Post-traumatic paraplegia (Acute) Pulmonary hypertension (Acute) Pyelonephritis Rash Reactive depression (situational) (Acute) Seborrheic keratosis Seborrheic keratosis, inflamed Sensorineural hearing loss (SNHL) of both ears (Acute) Sepsis Sepsis Sepsis due to Pseudomonas aeruginosa Shortness of breath SIRS (systemic inflammatory response syndrome) Systemic inflammatory response syndrome (SIRS) due to infectious process without acute organ dysfunction Urinary retention (Resolved) Vasovagal syncope Viral warts Wound, open Surgical History History of ankle surgery History of back surgery History of blood transfusion two within the last 10 years History of ileostomy History of partial colectomy Family History Other No pertinent family history Social History Preferred Language: Maltese Communication Ability: Effective Visual Impairment: No Limitations Hearing Ability: Use of Hearing Aid Dog Walker Required: No Beliefs That Will Affect Care: None marital status: Current Living Situation: Spouse current occupational status: retired Feels Safe at Home: Yes Smoking Status: Never smoker Second Hand Exposure: No ; Hx Alcohol Use: No Hx Substance Use: No Childhood Exposure to Second-Hand Smoke: No Other Diet Comment: regular Dental Care, Regularly: No Physical Activity Frequency: Does not Exercise Physical Activity Frequency Comment: due to physical condition Seatbelt Use: always Sunscreen Use: No Review of Systems Review of Systems: All systems reviewed & are unremarkable except as noted in HPI & below Physical Exam Constitutional: WD/WN, vitals as above well developed and well nourished Eyes: PERRL, conjunctivae normal, anicteric sclerae ENMT: external ear and nose normal, oropharynx normal Neck: trachea midline, no thyromegaly Respiratory: normal respiratory effort, lungs clear to auscultation Auscultation: + diminished lung sounds, + wheezes and + egophony Cardiovascular: Rate/Rhythm: regular rate Heart Sounds: normal S1, normal S2 and + murmur Gastrointestinal (Abdomen): Colostomy Musculoskeletal: no cyanosis or clubbing, extremities motor strength 5/5 Skin: no rashes, warm and dry Neurologic: patellar DTR's 2+ bilat, sensation intact Psychiatric: A+Ox3, euthymic affect Patient is poor historian but able to answer to her questions appropriately. Lymphatic: no cervical or axillary lymphadenopathy Results & Data Vital Signs (Past 12 Hours) Vital Signs Temp Pulse Resp BP Pulse Ox 04/04/19 18:31 68 19 95 04/04/19 18:30 65 19 112/51 L 100 04/04/19 18:02 70 20 99 04/04/19 18:01 71 20 120/58 L 97 04/04/19 18:00 76 19 91 04/04/19 17:30 74 22 04/04/19 17:00 74 24 95 04/04/19 16:47 36.5 C 81 20 123/73 100 04/04/19 16:38 93 H 19 04/04/19 16:34 74 22 123/73 Code Status & VTE Plan Code Status Full code VTE Prophylaxis Plan VTE Prophylaxis will be ordered: Yes PG Care Time/CCT Total # of Minutes Spent Total Time Spent with Patient: Total time spent is greater than 50% in coordination of care (as documented) at patient's floor/unit and/or counseling patient: (1) UTI (urinary tract infection) Encounter type: initial encounter Indwelling urinary catheter type: unspecified Urinary tract infection type: catheter-associated UTI Qualified Code(s): T83.511A - Infection and inflammatory reaction due to indwelling urethral catheter, initial encounter; N39.0 - Urinary tract infection, site not specified
--- NOTE | 2019-04-04 20:09 | Emergency Department Note ---
Entered by Abby Garcia acting as a scribe for History of Present Illness General Chief complaint: Urinary Symptoms Stated complaint: URINARY SX POSSIBLE UTI Time Seen by Provider: 04/04/19 16:34 Source: patient History of Present Illness Onset (ago): day(s) (today) Location: abdomen Pain Consistency: + other (episode) Quality: + other (urinary symptoms) Associated symptoms: + denies other symptoms (abdominal pain) and + other (right foot cellulitis); no chest pain and no fever/chills (fever) The patient is an 88 year old male who presents to the Emergency Room with complaints of an episode of urinary symptoms starting today. 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 She states that the called EMS today as she believes he has another UTI. She states that the said he was treated for one 2 weeks ago with Doxycycline and Bactrim. She notes that he also has a right foot cellulitis. She notes that the patient is on 2L of O2 at all times and last had his catheter changed yesterday. The patient denies abdominal pain, chest pain, and fever. Per EMS the was concerned that the patient had a UTI due to possible altered mental status as well as cloudy urine in the Gupta. Home Medications Home Medications Medication Instructions Recorded Confirmed Type Lactinex 1 tab PO BID 01/12/18 04/04/19 History atorvastatin 40 mg PO DAILY 01/12/18 04/04/19 History cholecalciferol (vitamin D3) 1,000 units PO DAILY 01/12/18 04/04/19 History [Vitamin D3] cranberry 400 mg PO DAILY 01/12/18 04/04/19 History hydrocortisone 1 applic TOPICAL DAILY PRN 01/12/18 04/04/19 History magnesium oxide 400 mg PO DAILY 01/12/18 04/04/19 History melatonin 3 mg PO HS PRN 01/12/18 04/04/19 History omeprazole 40 mg PO DAILY 01/12/18 04/04/19 History sodium chloride [Saline Nasal] 1 spray INTRANASAL BID PRN 01/12/18 04/04/19 History Symbicort 1 puff INHALATION BID 02/22/18 04/04/19 History albuterol sulfate [ProAir HFA] 1 - 2 puff INHALATION Q4H PRN 02/22/18 04/04/19 History guaifenesin [Mucinex] 600 mg PO Q12H PRN 02/22/18 04/04/19 History albuterol sulfate 1 vial INHALATION Q6H PRN 03/29/18 04/04/19 History lujkfvpmlybn-qjdw-ycakx acid 1 tab PO QAM 05/11/18 04/04/19 History mupirocin 2 % topical ointment 1 applic TOPICAL TID PRN #22 gm 09/19/18 04/04/19 Rx oxybutynin chloride 5 mg tablet 5 mg PO QID tab 11/12/18 04/04/19 History rivaroxaban 20 mg tablet 20 mg PO DAILY #30 tab 01/24/19 04/04/19 Rx diaper,brief,adult,disposable #32 ea 02/20/19 03/20/19 Rx nystatin 100,000 unit/gram topical 1 appln TOP TID #30 gm 03/17/19 04/04/19 Rx powder digoxin 125 mcg (0.125 mg) tablet 125 mcg PO DAILY #90 tab 04/04/19 04/04/19 Rx escitalopram oxalate 10 mg PO DAILY 04/04/19 04/04/19 History Allergies Allergy/AdvReac Type Severity Reaction Status Date / Time banana Allergy Mild Abdominal Verified 04/04/19 17:34 Pain nitrofurantoin Allergy Unknown Unknown Verified 04/04/19 17:34 Sulfa (Sulfonamide Allergy Unknown Unknown Verified 04/04/19 17:34 Antibiotics) NSAIDS (Non-Steroidal AdvReac Severe internal Verified 04/04/19 17:34 Anti-Inflamma bleeding Food Allergy Severe ANAPHYLAXIS Uncoded 04/04/19 17:34 WITH RADISHES/ DIFFICULTY BREATHING HORSERADISH Past Med/Surg History Medical History Acrochordon Acute UTI (Inactive) Allergic rhinitis Bacteremia Blister of foot Bloating Breast lump C. difficile diarrhea CAD (coronary artery disease) (Chronic) Cauda equina syndrome with neurogenic bladder Chronic indwelling Gupta catheter (Acute) Colostomy (Chronic 05/20/12) COPD (chronic obstructive pulmonary disease) (Chronic) Coronary artery disease, occlusive (Acute) Decubitus ulcer of sacral region Diarrhea Elevated prostate specific antigen (PSA) Esophageal reflux (Acute) Family history of cancer (10/26/12) Folliculitis Herpes zoster Hiatal hernia (Acute) History of pseudomembranous enterocolitis History of skin pruritus Hospital discharge follow-up Hx pulmonary embolism (Chronic) Hyperlipidemia (Acute) Hyponatremia Hypotension ICD (implantable cardioverter-defibrillator) in place (Acute) Incontinence Influenza Influenza A Ischemic cardiomyopathy (Acute) Left ankle injury Muscle spasm Myocardial infarction Neoplasm of uncertain behavior of skin Neurogenic bladder (Acute) Pacemaker (Chronic) Paraplegia (Resolved 05/20/12) Paroxysmal atrial fibrillation Personal history of urinary (tract) infection Pneumonia Post-traumatic paraplegia (Acute) Pulmonary hypertension (Acute) Pyelonephritis Rash Reactive depression (situational) (Acute) Seborrheic keratosis Seborrheic keratosis, inflamed Sensorineural hearing loss (SNHL) of both ears (Acute) Sepsis Sepsis Sepsis due to Pseudomonas aeruginosa Shortness of breath SIRS (systemic inflammatory response syndrome) Systemic inflammatory response syndrome (SIRS) due to infectious process without acute organ dysfunction Urinary retention (Resolved) Vasovagal syncope Viral warts Wound, open Surgical History History of ankle surgery History of back surgery History of blood transfusion two within the last 10 years History of ileostomy History of partial colectomy Family History Other No pertinent family history Social History Preferred Language: Belizean Communication Ability: Effective Visual Impairment: No Limitations Hearing Ability: Use of Hearing Aid Oracle Developer Required: No Beliefs That Will Affect Care: None marital status: Current Living Situation: Spouse current occupational status: retired Feels Safe at Home: Yes Smoking Status: Never smoker Second Hand Exposure: No ; Hx Alcohol Use: No Hx Substance Use: No Childhood Exposure to Second-Hand Smoke: No Other Diet Comment: regular Dental Care, Regularly: No Physical Activity Frequency: Does not Exercise Physical Activity Frequency Comment: due to physical condition Seatbelt Use: always Sunscreen Use: No Review of Systems See HPI for pertinent positives & negatives. and A total of 10 systems reviewed and were otherwise negative Physical Exam Vital Signs Vital Signs - 24 hr 04/04/19 16:34 04/04/19 16:38 04/04/19 16:47 Temperature 36.5 C Temperature Source Oral Pulse Rate 74 93 H 81 Pulse Rate from SpO2 Sensor Respiratory Rate 22 19 20 Respiratory Effort / Characteristics Non-Labored Spontaneous Respiratory Depth Normal Respiratory Pattern Regular Blood Pressure 123/73 123/73 Blood Pressure Mean 82 89 Pulse Oximetry 100 Oxygen Delivery Method Room Air Oxygen Flow Rate Sepsis Recent Fever Within 48 Hours No Sepsis New/Unexplained Change in Mental Status No Sepsis Action Taken by Nursing No Action Required 04/04/19 17:00 04/04/19 17:30 04/04/19 18:00 Temperature Temperature Source Pulse Rate 74 74 76 Pulse Rate from SpO2 Sensor 73 74 70 Respiratory Rate 24 22 19 Respiratory Effort / Characteristics Respiratory Depth Respiratory Pattern Blood Pressure Blood Pressure Mean Pulse Oximetry 95 91 Oxygen Delivery Method Nasal Cannula Oxygen Flow Rate 2 2 Sepsis Recent Fever Within 48 Hours Sepsis New/Unexplained Change in Mental Status Sepsis Action Taken by Nursing 04/04/19 18:01 04/04/19 18:02 04/04/19 18:30 Temperature Temperature Source Pulse Rate 71 70 65 Pulse Rate from SpO2 Sensor 69 71 68 Respiratory Rate 20 20 19 Respiratory Effort / Characteristics Respiratory Depth Respiratory Pattern Blood Pressure 120/58 L 112/51 L Blood Pressure Mean 68 61 Pulse Oximetry 97 99 100 Oxygen Delivery Method Nasal Cannula Nasal Cannula Oxygen Flow Rate 2 2 2 Sepsis Recent Fever Within 48 Hours Sepsis New/Unexplained Change in Mental Status Sepsis Action Taken by Nursing 04/04/19 18:31 04/04/19 19:00 04/04/19 19:01 Temperature Temperature Source Pulse Rate 68 75 73 Pulse Rate from SpO2 Sensor 65 Respiratory Rate 19 18 24 Respiratory Effort / Characteristics Respiratory Depth Respiratory Pattern Blood Pressure 135/71 Blood Pressure Mean 111 Pulse Oximetry 95 Oxygen Delivery Method Nasal Cannula Oxygen Flow Rate 2 Sepsis Recent Fever Within 48 Hours Sepsis New/Unexplained Change in Mental Status Sepsis Action Taken by Nursing 04/04/19 19:30 04/04/19 19:31 Temperature Temperature Source Pulse Rate 75 75 Pulse Rate from SpO2 Sensor Respiratory Rate 25 H 18 Respiratory Effort / Characteristics Respiratory Depth Respiratory Pattern Blood Pressure 119/59 L Blood Pressure Mean 80 Pulse Oximetry 99 Oxygen Delivery Method Nasal Cannula Oxygen Flow Rate 2 Sepsis Recent Fever Within 48 Hours Sepsis New/Unexplained Change in Mental Status Sepsis Action Taken by Nursing GENERAL: He is oriented to person, place, and time. He appears well-developed and well-nourished. He does not appear distressed. HENT: Exam performed. - Head: Normocephalic and atraumatic. - Right Ear: External ear normal. No mastoid tenderness. - Left Ear: External ear normal. No mastoid tenderness. - Mouth/Throat: The oropharynx is clear and moist. No trismus in the jaw. No dental abscesses or uvula swelling. No oropharyngeal exudate or tonsillar abscesses. EYES: Conjunctivae and EOM are normal. Pupils are equal, round, and reactive to light. Right eye exhibits no discharge. Left eye exhibits no discharge. No scleral icterus. NECK: Normal range of motion. Neck supple. No JVD present. No spinous process te nderness present. No carotid bruit present. No rigidity. No tracheal deviation and normal range of motion present. No Brudzinski's sign and no Kernig's sign noted. CV: Normal rate, irregular rhythm, normal heart sounds and intact distal pulses. There is no peripheral edema. Palpable radial pulses bue. PULM/CHEST: Effort normal and breath sounds normal. No respiratory distress. No stridor. He has no wheezes. He has no rales. - Chest Wall: He exhibits no tenderness. ABD: Ostomy bag present. No surrounding erythema. No pain on palpation of the abdomen. MUSC/SKEL: Normal range of motion. There is no peripheral edema, tenderness or deformity. LYMPH: No cervical adenopathy. NEURO: He is alert and oriented to person, place, and time. He has normal strength in his upper extremities. No cranial nerve deficit. Paralyzed from the waist down per baseline. SKIN: Skin is warm and dry. He is not diaphoretic. Erythema and warmth over his right dorsal foot. PSYCH: He has a normal mood and affect. Behavior is normal. Judgment and thought content normal. Course Course 163: The patient was evaluated in room C6. A complete history and physical exam was performed. EMR reviewed. Patient was seen at Dr. Davila urology office yesterday by a nurse who attempted to change his Gupta catheter. The nurse was unable to change Gupta catheter and the attending urologist had to place a coud catheter himself. 174:Vital signs stable. Labs show lactic acid of 2.6 and a white count of 11.1. I discussed the patient's case with Dr. Sweeney- Urology. He doesn't recommend changing the catheter at this point. We are going to obtain a chest x- ray and flu swab to look for other sources of infection. If negative, the p atient will be treated with IV antibiotics for a UTI. Dr. Sweeney is in agreement with this plan. 1904: The patient had a negative flu and chest x-ray. He will be admitted for a UTI and given a dose of Rocephin in the ED. I discussed the patient's case with Dr. De Jesus- [facility] Hospitalist. She will evaluate the patient for further management. Administered Medications Discontinued Medications Sodium Chloride (Nss 1000ml) 500 mls @ 999 mls/hr IV .Q31M ONE Stop: 04/04/19 18:20 Last Infusion: 04/04/19 18:45 Dose: 0 mls/hr Documented by: [id number] Admin: 04/04/19 18:08 Dose: 999 mls/hr Documented by: [id number] Ceftriaxone Sodium (Rocephin) 1,000 mg in 50 mls @ 100 mls/hr IV NOW STA Stop: 04/04/19 19:35 Last Admin: 04/04/19 19:59 Dose: 100 mls/hr Documented by: [id number] Medical Decision Making Medical Records Attestation: I reviewed the patient's medical records. Home Medications Current Medication List: was personally reviewed by me Laboratory Data Attestation: I reviewed the patient's lab results. Result diagrams: 04/04/19 17:00 04/04/19 17:00 Lab Results 04/04/19 04/04/19 04/04/19 Range/Units 17:00 17:00 17:00 WBC 11.10 H (4.8-10.8) K/uL RBC 4.72 (4.7-6.1) M/uL Hgb 14.4 (14.0-18.0) g/dL Hct 42.1 (42-52) % MCV 89.2 (80-100) fL MCH 30.5 (25-34) pg MCHC 34.2 (32-36) g/dL RDW Std Deviation 46.5 H (36.4-46.3) fL RDW Coeff of Evelyne 14.2 (11.5-14.5) % Plt Count 192 (130-400) K/uL MPV 9.6 (7.4-10.4) fL Immature Gran % (Auto) 0.3 % Neut % (Auto) 67.9 % Lymph % (Auto) 14.0 % Routt % (Auto) 10.8 % Eos % (Auto) 6.5 % Baso % (Auto) 0.5 % Immature Gran # (Auto) 0.03 H (0.00-0.02) K/uL Neut # (Auto) 7.54 H (1.4-6.5) K/uL Lymph # (Auto) 1.55 (1.2-3.4) K/uL Routt # (Auto) 1.20 H (0.11-0.59) K/uL Eos # (Auto) 0.72 H (0-0.5) K/uL Baso # (Auto) 0.06 (0-0.2) K/uL Sodium 135 L (136-145) mmol/L Potassium 4.0 (3.5-5.1) mmol/L Chloride 98 (98-107) mmol/L Carbon Dioxide 33 H (21-32) mmol/L Anion Gap 4.0 (3-11) BUN 10 (7-18) mg/dl Creatinine 1.00 (0.6-1.4) mg/dl Est Cr Clr Drug Dosing 41.0 ml/min Est GFR ( Amer) 77.0 Est GFR (Non-Af Amer) 66.4 BUN/Creatinine Ratio 10.3 (10-20) Glucose 126 H (70-99) mg/dl Lactate 2.6 H* (0.4-2.0) mmol/L Calcium 10.2 H (8.5-10.1) mg/dl Urine Color Urine Appearance (Clear) Urine pH (4.5-7.5) Ur Specific Rillito (1.000-1.030) Urine Protein (Negative) Urine Glucose (UA) (Negative) Urine Ketones (Negative) Urine Blood (Negative) Urine Nitrite (Negative) Urine Bilirubin (Negative) Urine Urobilinogen (Negative) Ur Leukocyte Esterase (Negative) Urine WBC (Auto) (0-5) /hpf Urine RBC (Auto) (0-4) /hpf U Hyaline Cast (Auto) (0-5) /lpf U Epithel Cells (Auto) (0-5) /lpf Urine Bacteria (Auto) (Negative) Influenza Type A (PCR) (Neg) Influenza Type B (PCR) (Neg) 04/04/19 04/04/19 04/04/19 Range/Units 17:00 18:07 18:50 WBC (4.8-10.8) K/uL RBC (4.7-6.1) M/uL Hgb (14.0-18.0) g/dL Hct (42-52) % MCV (80-100) fL MCH (25-34) pg MCHC (32-36) g/dL RDW Std Deviation (36.4-46.3) fL RDW Coeff of Evelyne (11.5-14.5) % Plt Count (130-400) K/uL MPV (7.4-10.4) fL Immature Gran % (Auto) % Neut % (Auto) % Lymph % (Auto) % Routt % (Auto) % Eos % (Auto) % Baso % (Auto) % Immature Gran # (Auto) (0.00-0.02) K/uL Neut # (Auto) (1.4-6.5) K/uL Lymph # (Auto) (1.2-3.4) K/uL Routt # (Auto) (0.11-0.59) K/uL Eos # (Auto) (0-0.5) K/uL Baso # (Auto) (0-0.2) K/uL Sodium (136-145) mmol/L Potassium (3.5-5.1) mmol/L Chloride (98-107) mmol/L Carbon Dioxide (21-32) mmol/L Anion Gap (3-11) BUN (7-18) mg/dl Creatinine (0.6-1.4) mg/dl Est Cr Clr Drug Dosing ml/min Est GFR ( Amer) Est GFR (Non-Af Amer) BUN/Creatinine Ratio (10-20) Glucose (70-99) mg/dl Lactate 1.8 (0.4-2.0) mmol/L Calcium (8.5-10.1) mg/dl Urine Color Yellow Urine Appearance Cloudy A (Clear) Urine pH 6.5 (4.5-7.5) Ur Specific Rillito 1.010 (1.000-1.030) Urine Protein 1+ H (Negative) Urine Glucose (UA) Negative (Negative) Urine Ketones Negative (Negative) Urine Blood 2+ H (Negative) Urine Nitrite Negative (Negative) Urine Bilirubin Negative (Negative) Urine Urobilinogen Negative (Negative) Ur Leukocyte Esterase 3+ H (Negative) Urine WBC (Auto) >30 H (0-5) /hpf Urine RBC (Auto) 5-10 H (0-4) /hpf U Hyaline Cast (Auto) 1-5 (0-5) /lpf U Epithel Cells (Auto) 0-5 (0-5) /lpf Urine Bacteria (Auto) Negative (Negative) Influenza Type A (PCR) Neg for Influ A (Neg) Influenza Type B (PCR) Neg for Influ B (Neg) Imaging Data Radiologist's Impression: Radiology results as stated below per my review and the radiologist's interpretation: XR chest 1V portable HISTORY: 88 years-old Male ro pna acute shortness of breath with possible pneumonia COMPARISON: Chest radiograph 02/25/2019 TECHNIQUE: Portable AP view of the chest FINDINGS: Cardiomediastinal and hilar silhouettes are unchanged. Left subclavian pacer/AICD is unchanged. Hyperinflation with chronic blunting of the costoph renic angles. Increased lucency of the lungs areas of unchanged moderate circumferential coarsening suggests emphysema. No pneumothorax, large pleural effusion, overt pulmonary edema or focal airspace consolidation typical for pneumonia. Unchanged mild medial left lung base scarring/atelectasis. Deg enerative changes of the shoulders and spine. Extensive fusion hardware of the thoracolumbar spine. IMPRESSION: Chronic findings as above without acute process. ACT 112: Negative or not required by law. The above report was generated using voice recognition software. It may contain grammatical, syntax or spelling errors. Electronically signed by: Francisco Judd M.D. 04/04/2019 6:03 PM Blood Pressure Blood Pressure Findings: Normal blood pressure Blood Pressure Disposition: did not require urgent referral MDM Narrative 1636: The patient was evaluated in room C6. A complete history and physical exam was performed. EMR reviewed. Patient was seen at Dr. Davila urology office yesterday by a nurse who attempted to change his Gupta catheter. The nurse was unable to change Gupta catheter and the attending urologist had to place a coud catheter himself. 1749:Vital signs stable. Labs show lactic acid of 2.6 and a white count of 11.1. I discussed the patient's case with Dr. Sweeney- Urology. He doesn't recommend changing the catheter at this point. We are going to obtain a chest x- ray and flu swab to look for other sources of infection. If negative, the patient will be treated with IV antibiotics for a UTI. Dr. Sweeney is in agreement with this plan. 1904: The patient had a negative flu and chest x-ray. He will be admitted for a UTI and given a dose of Rocephin in the ED. I discussed the patient's case with Dr. De Jesus- [facility] Hospitalist. She will evaluate the patient for further management. Impression & Plan UTI (urinary tract infection) Discharge Plan Visit Data Chief Complaint: Urinary Symptoms Stated Complaint: URINARY SX POSSIBLE UTI ED Provider: Tenzin Garcia Discharge Problem: UTI (urinary tract infection) Patient Disposition: Being Evaluated by Hospitalist Forms Stand Alone Forms: My [facility] Prescriptions Prescriptions: No Action mupirocin 2 % ointment 1 applic Topical TID PRN (Reason: Skin Irritation) Qty: 22 RF: 2 rivaroxaban 20 mg tablet 20 mg PO DAILY Qty: 30 RF: 3 (DME) Prevail Underwear misc See Dose Instructions .ROUTE .MEDSUPPLY Qty: 32 RF: 0 nystatin 100,000 unit/gram powder 1 appln TOP TID Qty: 30 RF: 0 digoxin 125 mcg (0.125 mg) tablet 125 mcg PO DAILY Qty: 90 RF: 3 oxybutynin chloride 5 mg tablet 5 mg PO QID RF: 0 atorvastatin 40 mg tablet 40 mg PO DAILY RF: 0 omeprazole 40 mg capsule,delayed release(DR/EC) 40 mg PO DAILY RF: 0 melatonin 3 mg Tablet 3 mg PO HS PRN (Reason: Sleep) RF: 0 magnesium oxide 400 mg (241.3 mg magnesium) Tablet 400 mg PO DAILY RF: 0 cranberry 400 mg Capsule 400 mg PO DAILY RF: 0 hydrocortisone 2.5 % Cream 1 applic TOPICAL DAILY PRN (Reason: Skin Irritation) RF: 0 sodium chloride [Saline Nasal] 0.65 % Aerosol,Jasper 1 spray INTRANASAL BID PRN (Reason: Nasal Dryness) RF: 0 Lactinex 100 million cell Granules In Packet 1 tab PO BID RF: 0 cholecalciferol (vitamin D3) [Vitamin D3] 1,000 unit Tablet 1,000 units PO DAILY RF: 0 albuterol sulfate [ProAir HFA] 90 mcg/actuation Hfa Aerosol Inhaler 1 - 2 puff INHALATION Q4H PRN (Reason: Shortness Of Breath Or Wheezing) RF: 0 Symbicort 160-4.5 mcg/actuation Hfa Aerosol Inhaler 1 puff INHALATION BID RF: 0 guaifenesin [Mucinex] 600 mg Tablet Extended Release 12hr 600 mg PO Q12H PRN (Reason: Congestion) RF: 0 albuterol sulfate 2.5 mg /3 mL (0.083 %) solution for nebulization 1 vial Inhalation Q6H PRN (Reason: Shortness Of Breath Or Wheezing) RF: 0 escitalopram oxalate 10 mg tablet 10 mg PO DAILY RF: 0 oppwufxktzst-xlpm-bnpti acid 18-400 mg-mcg tablet 1 tab PO QAM RF: 0 Referrals Referrals: Iam Yang MD [Primary Care Provider] - Discharge Problem: UTI (urinary tract infection) Qualifiers: Urinary tract infection type: catheter-associated UTI Indwelling urinary catheter type: unspecified Encounter type: initial encounter Qualified Code(s): T83.511A - Infection and inflammatory reaction due to indwelling urethral catheter, initial encounter The scribe's documentation has been prepared under my direction and personally reviewed by me in its entirety. I confirm that the note above accurately reflects all work, treatment, procedures, and medical decision making performed by me.
[2019-04-04] MEDS ORDERED: SODIUM CHLORIDE 0.9% 1000ML 1,000 ML IV SCH (21:29)
[2019-04-04] MEDS ORDERED: guaiFENesin 600 MG TABCR PO PRN (21:29)
[2019-04-04] MEDS ORDERED: POLYETHYLENE (MIRALAX) 17 GM PACK PO PRN (21:29)
[2019-04-04] MEDS ORDERED: SODIUM CHLORIDE 0.65% NA SOLN 45 ML (OCEAN) NAE PRN (21:29)
[2019-04-04] MEDS ORDERED: ALUMINUM/MAGNESIUM SUSP 30 ML UDC PO PRN (21:29)
[2019-04-04] MEDS ORDERED: ACETAMINOPHEN 325 MG TAB PO PRN (21:29)
[2019-04-04] MEDS ORDERED: HEPARIN SOD 5,000 UNIT/0.5 ML VIAL SQ SCH (21:29)
[2019-04-04] MEDS ORDERED: MAGNESIUM HYDROXIDE SUSP 30 ML UDC PO PRN (21:29)
[2019-04-04] MEDS ORDERED: HYDROCORTISONE 2.5% CR 30 GM TUBE EXT PRN (21:29)
[2019-04-04] MEDS ORDERED: MUPIROCIN CALCIUM CREAM 2% 15 GM TUBE EXT PRN (21:44)
[2019-04-04] MEDS ORDERED: ALBUTEROL HFA 8 GM INHALER INH PRN (21:45)
[2019-04-04 22:01] LABS: Thyroid Stimulating Hormone 1.32 uIu/ml (0.300-4.500)
[2019-04-04] MEDS: BUDESONIDE/FORMOTEROL FUMARATE 160/4.5 60 PUFFS/INHALER INH SCH (22:43)
[2019-04-04] MEDS: NYSTATIN POWDER 15GM BTL EXT SCH (22:43)
[2019-04-04] MEDS: OXYBUTYNIN CHLORIDE 5 MG TAB PO SCH (22:44)
[2019-04-04] MEDS: LACTOBACILLUS ACIDOPHILUS 1 GM PACK PO SCH (22:46)
[2019-04-05 06:05] LABS: Basophils # (auto) 0.03 K/uL (0-0.2); Basophils % (auto) 0.4 %; Eosinophils % (auto) 8.6 %; Hematocrit (blood only) 37.2 % (42-52); Hemoglobin 12.4 g/dL (14.0-18.0); Immature Granulocytes # (auto) 0.02 K/uL (0.00-0.02); Immature Granulocytes % (auto) 0.2 %; Lymphocytes # (auto) 1.58 K/uL (1.2-3.4); Lymphocytes % (auto) 19.5 %; Mean Corpuscular Hemoglobin 29.6 pg (25-34); Mean Corpuscular Hgb Conc 33.3 g/dL (32-36); Mean Corpuscular Volume 88.8 fL (80-100); Mean Platelet Volume 9.9 fL (7.4-10.4); Monocytes % (auto) 9.9 %; Neutrophils # (auto) 4.99 K/uL (1.4-6.5); Neutrophils % (auto) 61.4 %; Platelet Count 170 K/uL (130-400); RDW Coefficient of Variation 14.4 % (11.5-14.5); RDW Standard Deviation 46.4 fL (36.4-46.3); Red Blood Count 4.19 M/uL (4.7-6.1); White Blood Count 8.12 K/uL (4.8-10.8)
[2019-04-05 06:50] LABS: Albumin Level 2.8 gm/dl (3.4-5.0); BUN Creatinine Ratio 12.5 (10-20); Calcium 8.7 mg/dl (8.5-10.1); Creatinine Clr Calc Pharmacy 50.3 ml/min; Est GFR (African American) 92.8; Potassium 3.6 mmol/L (3.5-5.1)
[2019-04-05 06:52] LABS: Albumin Globulin Ratio 0.7 (0.9-2); Bilirubin,Total 0.5 mg/dl (0.2-1); Globulin 4.3 gm/dl (2.5-4.0); Total Protein 7.1 gm/dl (6.4-8.2)
[2019-04-05 07:05] LABS: Estimated Average Glucose 120 mg/dl; Hemoglobin A1C 5.8 % (4.5-5.6)
[2019-04-05] MEDS: LACTOBACILLUS ACIDOPHILUS 1 GM PACK PO SCH ×2 (07:35→21:23)
[2019-04-05] MEDS: ATORVASTATIN 40 MG TAB PO SCH (07:35)
[2019-04-05] MEDS: ESCITALOPRAM OXALATE 10 MG TAB PO SCH (07:36)
[2019-04-05] MEDS: OXYBUTYNIN CHLORIDE 5 MG TAB PO SCH ×4 (07:36→21:23)
[2019-04-05] MEDS: CHOLECALCIFEROL 1,000 UNITS TAB PO SCH (07:37)
[2019-04-05] MEDS: CEROVITE ADV FORMULA TAB PO SCH (07:37)
[2019-04-05] MEDS: PANTOprazole 40 MG TAB PO SCH (07:38)
[2019-04-05] MEDS: MAGNESIUM OXIDE 400 MG TAB PO SCH (07:38)
[2019-04-05] MEDS: RIVAROXABAN 20 MG TAB PO SCH (07:38)
[2019-04-05] MEDS: BUDESONIDE/FORMOTEROL FUMARATE 160/4.5 60 PUFFS/INHALER INH SCH ×2 (07:39→21:24)
[2019-04-05] MEDS: NYSTATIN POWDER 15GM BTL EXT SCH ×3 (07:39→21:23)
[2019-04-05] MEDS ORDERED: NON-FORMULARY MEDICATION (Cranberry 400 MG) PO SCH (09:00)
[2019-04-05] MEDS ORDERED: cefTRIAXone SODIUM 2,000 MG in DEXTROSE 5% 50 ML IV SCH (16:00)
[2019-04-05] MEDS: DIGOXIN 0.125 MG TAB PO SCH (16:26)
--- NOTE | 2019-04-05 22:06 | Hospitalist Progress Note ---
Date of Service April 05, 2019 Assessment & Plan (1) Sepsis associated hypotension: Admits to PCU on telemetry Vital signs every 4 hours Started ceftriaxone in the ER and continued on the floor. Ceftriaxone 2 g IV daily. Awaiting urine cultures. will continue to monitor. DVT prophylaxis River ToxiBan 20 mg p.o. daily. Full code (2) UTI (urinary tract infection): As discussed above. Pending urine culture. already saw the patient in the ER and recommended not to change urinary catheter anymore. Continue cranberry 400 mg p.o. daily. Continue oxybutynin chloride 5 mg tablet p.o. 4 times daily. (3) Pulmonary hypertension: Appears to be stable at this time continue. Continue home medicine. (4) Post-traumatic paraplegia: (5) Hyperlipidemia: (6) Ischemic cardiomyopathy: Appears to be stable now. Continue digoxin 125 MCG's p.o. daily. Continue magnesium oxide 400 mg p.o. daily. (7) CAD (coronary artery disease): As the above. Continue telemetry (8) COPD (chronic obstructive pulmonary disease): Appears to be stable for now. Continue Symbicort 1 puff twice daily, albuterol sulfate every 6 hours as needed, pro-air HFA 2 puffs every 4 hours as needed. Continue guaifenesin 600 mg p.o. every 12 as needed. (9) Urinary retention: As already discussed. Continue urinary catheter as recommended by Dr. Sweeney. (10) Depression: Stable now continue escitalopram 10 mg p.o. daily. (11) Paroxysmal A-fib: Continue rivaroxaban 20 mg p.o. daily. Subjective Patient reports no new symptoms. Review of Systems Review of Systems: All systems reviewed & are unremarkable except as noted in HPI & below Physical Exam Physical Exam: Constitutional: WD/WN, vitals as above well developed and well nourished Eyes: PERRL, conjunctivae normal, anicteric sclerae ENMT: external ear and nose normal, oropharynx normal Neck: trachea midline, no thyromegaly Respiratory: normal respiratory effort, lungs clear to auscultation Auscultation: + diminished lung sounds, + wheezes and + egophony Cardiovascular: Rate/Rhythm: regular rate Heart Sounds: normal S1, normal S2 and + murmur Gastrointestinal (Abdomen): Colostomy Musculoskeletal: no cyanosis or clubbing, extremities motor strength 5/5 Skin: no rashes, warm and dry Neurologic: patellar DTR's 2+ bilat, sensation intact Psychiatric: AA, euthymic affect.. Lymphatic: no cervical or axillary lymphadenopathy Results & Data Vital Signs (Past 12 Hours) Vital Signs Temp Pulse Pulse Resp BP Pulse Ox 04/05/19 19:03 36.5 C 69 18 100/43 L 94 04/05/19 16:26 76 04/05/19 15:26 36.3 C L 84 18 113/75 94 04/05/19 11:09 36.4 C L 61 18 125/66 98 PG Care Time/CCT Total # of Minutes Spent Total Time Spent with Patient: Total time spent is greater than 50% in coordination of care (as documented) at patient's floor/unit and/or counseling patient: (1) UTI (urinary tract infection) Encounter type: initial encounter Indwelling urinary catheter type: unspecified Urinary tract infection type: catheter-associated UTI Qualified Code(s): T83.511A - Infection and inflammatory reaction due to indwelling urethral catheter, initial encounter; N39.0 - Urinary tract infection, site not specified
[2019-04-06 06:14] LABS: Basophils # (auto) 0.04 K/uL (0-0.2); Basophils % (auto) 0.5 %; Eosinophils % (auto) 8.8 %; Hematocrit (blood only) 35.3 % (42-52); Hemoglobin 11.7 g/dL (14.0-18.0); Immature Granulocytes # (auto) 0.01 K/uL (0.00-0.02); Immature Granulocytes % (auto) 0.1 %; Lymphocytes # (auto) 1.61 K/uL (1.2-3.4); Lymphocytes % (auto) 20.2 %; Mean Corpuscular Hemoglobin 29.5 pg (25-34); Mean Corpuscular Hgb Conc 33.1 g/dL (32-36); Mean Corpuscular Volume 88.9 fL (80-100); Monocytes # (auto) 0.71 K/uL (0.11-0.59); Monocytes % (auto) 8.9 %; Neutrophils % (auto) 61.5 %; Platelet Count 180 K/uL (130-400); RDW Coefficient of Variation 14.3 % (11.5-14.5); RDW Standard Deviation 46.6 fL (36.4-46.3); Red Blood Count 3.97 M/uL (4.7-6.1); White Blood Count 7.97 K/uL (4.8-10.8)
[2019-04-06 06:49] LABS: Albumin Level 2.7 gm/dl (3.4-5.0); BUN Creatinine Ratio 14.1 (10-20); Calcium 8.9 mg/dl (8.5-10.1); Creatinine Clr Calc Pharmacy 46.2 ml/min; Est GFR (African American) 89.1; Est GFR (Non-African American) 76.9; Potassium 3.4 mmol/L (3.5-5.1)
[2019-04-06 06:52] LABS: Albumin Globulin Ratio 0.6 (0.9-2); Bilirubin,Total 0.4 mg/dl (0.2-1); Globulin 4.3 gm/dl (2.5-4.0)
[2019-04-06] MEDS: CEROVITE ADV FORMULA TAB PO SCH (08:14)
[2019-04-06] MEDS: NYSTATIN POWDER 15GM BTL EXT SCH ×3 (08:14→21:21)
[2019-04-06] MEDS: PANTOprazole 40 MG TAB PO SCH (08:14)
[2019-04-06] MEDS: LACTOBACILLUS ACIDOPHILUS 1 GM PACK PO SCH ×2 (08:14→21:21)
[2019-04-06] MEDS: BUDESONIDE/FORMOTEROL FUMARATE 160/4.5 60 PUFFS/INHALER INH SCH ×2 (08:14→21:20)
[2019-04-06] MEDS: OXYBUTYNIN CHLORIDE 5 MG TAB PO SCH ×4 (08:15→21:21)
[2019-04-06] MEDS: ESCITALOPRAM OXALATE 10 MG TAB PO SCH (08:15)
[2019-04-06] MEDS: MAGNESIUM OXIDE 400 MG TAB PO SCH (08:16)
[2019-04-06] MEDS: CHOLECALCIFEROL 1,000 UNITS TAB PO SCH (08:16)
[2019-04-06] MEDS: ATORVASTATIN 40 MG TAB PO SCH (08:16)
[2019-04-06] MEDS: RIVAROXABAN 20 MG TAB PO SCH (08:17)
--- NOTE | 2019-04-06 15:18 | Hospitalist Progress Note ---
Date of Service April 06, 2019 Assessment & Plan (1) Sepsis associated hypotension: Admits to PCU on telemetry Vital signs every 4 hours Started ceftriaxone in the ER and continued on the floor. Ceftriaxone 2 g IV daily. Awaiting urine cultures. will continue to monitor. DVT prophylaxis [place] ToxiBan 20 mg p.o. daily. Full code (2) UTI (urinary tract infection): As discussed above. Pending urine culture. already saw the patient in the ER and recommended not to change urinary catheter anymore. Continue cranberry 400 mg p.o. daily. Continue oxybutynin chloride 5 mg tablet p.o. 4 times daily. (3) Pulmonary hypertension: Appears to be stable at this time continue. Continue home medicine. (4) Post-traumatic paraplegia: (5) Hyperlipidemia: (6) Ischemic cardiomyopathy: Appears to be stable now. Continue digoxin 125 MCG's p.o. daily. Continue magnesium oxide 400 mg p.o. daily. (7) CAD (coronary artery disease): As the above. Continue telemetry (8) COPD (chronic obstructive pulmonary disease): Appears to be stable for now. Continue Symbicort 1 puff twice daily, albuterol sulfate every 6 hours as needed, pro-air HFA 2 puffs every 4 hours as needed. Continue guaifenesin 600 mg p.o. every 12 as needed. (9) Urinary retention: As already discussed. Continue urinary catheter as recommended by Dr. Sweeney. (10) Depression: Stable now continue escitalopram 10 mg p.o. daily. (11) Paroxysmal A-fib: Continue rivaroxaban 20 mg p.o. daily. (12) Delirium: delirium likely from UTI. Will transfer patient out of tele and lace in a room with a good view to help keep room bright during day and dark during night time. explained to that patient will likely wax and wane. s Subjective Patient is more confused today. Not able to provide history. Review of Systems Review of Systems: Unobtainable due to cognitive status Physical Exam Physical Exam: Constitutional: WD/WN, vitals as above well developed and well nourished Eyes: PERRL, conjunctivae normal, anicteric sclerae ENMT: external ear and nose normal, oropharynx normal Neck: trachea midline, no thyromegaly Respiratory: normal respiratory effort, Auscultation: + diminished lung sounds Cardiovascular: Rate/Rhythm: regular rate Heart Sounds: normal S1, normal S2 and + murmur Gastrointestinal (Abdomen): Colostomy Musculoskeletal: no cyanosis or clubbing, extremities motor strength 5/5 Skin: no rashes, warm and dry Neurologic: patellar DTR's 2+ bilat, sensation intact Psychiatric: AA not oriented to place or person, euthymic affect.. Lymphatic: no cervical or axillary lymphadenopathy Results & Data Vital Signs (Past 12 Hours) Vital Signs Temp Pulse Pulse Resp BP Pulse Ox 04/06/19 14:22 97 H 04/06/19 11:44 36.7 C 71 19 105/56 L 92 04/06/19 07:55 36.7 C 69 19 138/56 L 99 04/06/19 06:45 60 04/06/19 04:02 36.7 C 62 16 122/63 99 PG Care Time/CCT Total # of Minutes Spent Total Time Spent with Patient: Total time spent is greater than 50% in coordination of care (as documented) at patient's floor/unit and/or counseling patient: (1) UTI (urinary tract infection) Encounter type: initial encounter Indwelling urinary catheter type: unspecified Urinary tract infection type: catheter-associated UTI Qualified Code(s): T83.511A - Infection and inflammatory reaction due to indwelling urethral catheter, initial encounter; N39.0 - Urinary tract infection, site not specified
[2019-04-06] MEDS ORDERED: CEFEPIME CONSULT ACTIVE PRN (15:27)
[2019-04-06] MEDS: DIGOXIN 0.125 MG TAB PO SCH (16:19)
[2019-04-06] MEDS ORDERED: CEFEPIME 2,000 MG in SYRINGE 7.5 ML IV SCH (18:00)
[2019-04-07 07:07] LABS: Basophils # (auto) 0.03 K/uL (0-0.2); Basophils % (auto) 0.4 %; Eosinophils # (auto) 0.68 K/uL (0-0.5); Hemoglobin 12.5 g/dL (14.0-18.0); Immature Granulocytes # (auto) 0.01 K/uL (0.00-0.02); Immature Granulocytes % (auto) 0.1 %; Lymphocytes # (auto) 1.37 K/uL (1.2-3.4); Lymphocytes % (auto) 16.2 %; Mean Corpuscular Hemoglobin 29.8 pg (25-34); Mean Corpuscular Hgb Conc 33.8 g/dL (32-36); Mean Corpuscular Volume 88.1 fL (80-100); Mean Platelet Volume 9.8 fL (7.4-10.4); Monocytes # (auto) 0.76 K/uL (0.11-0.59); Neutrophils % (auto) 66.3 %; Platelet Count 189 K/uL (130-400); RDW Coefficient of Variation 14.3 % (11.5-14.5); White Blood Count 8.45 K/uL (4.8-10.8)
[2019-04-07] MEDS: CHOLECALCIFEROL 1,000 UNITS TAB PO SCH (07:36)
[2019-04-07] MEDS: ATORVASTATIN 40 MG TAB PO SCH (07:36)
[2019-04-07] MEDS: LACTOBACILLUS ACIDOPHILUS 1 GM PACK PO SCH ×2 (07:36→21:04)
[2019-04-07 07:37] LABS: Albumin Level 2.9 gm/dl (3.4-5.0); BUN Creatinine Ratio 13.1 (10-20); Calcium 9.4 mg/dl (8.5-10.1); Creatinine Clr Calc Pharmacy 47.9 ml/min; Est GFR (African American) 90.4; Potassium 3.4 mmol/L (3.5-5.1)
[2019-04-07] MEDS: RIVAROXABAN 20 MG TAB PO SCH (07:37)
[2019-04-07] MEDS: MAGNESIUM OXIDE 400 MG TAB PO SCH (07:37)
[2019-04-07] MEDS: PANTOprazole 40 MG TAB PO SCH (07:37)
[2019-04-07] MEDS: CEROVITE ADV FORMULA TAB PO SCH (07:38)
[2019-04-07] MEDS: ESCITALOPRAM OXALATE 10 MG TAB PO SCH (07:38)
[2019-04-07] MEDS: OXYBUTYNIN CHLORIDE 5 MG TAB PO SCH ×4 (07:38→21:04)
[2019-04-07] MEDS: NYSTATIN POWDER 15GM BTL EXT SCH ×3 (07:39→21:04)
[2019-04-07] MEDS: BUDESONIDE/FORMOTEROL FUMARATE 160/4.5 60 PUFFS/INHALER INH SCH ×2 (07:39→21:04)
[2019-04-07 07:40] LABS: Albumin Globulin Ratio 0.7 (0.9-2); Bilirubin,Total 0.7 mg/dl (0.2-1); Globulin 4.3 gm/dl (2.5-4.0); Total Protein 7.2 gm/dl (6.4-8.2)
[2019-04-07] MEDS: CEFEPIME 2,000 MG in SYRINGE 7.5 ML IV SCH ×2 (09:40→21:04)
[2019-04-07] MEDS: DIGOXIN 0.125 MG TAB PO SCH (16:16)
--- NOTE | 2019-04-07 21:28 | Hospitalist Progress Note ---
Date of Service April 07, 2019 Assessment & Plan (1) UTI (urinary tract infection): Catheter associated UTI Urine culture - positive for Proteus and Pseudomonas. Recently changed catheter and recommended not to change again by Dr Sweeney in ER. Continue cranberry 400 mg p.o. daily. Increased cefepime dosing to 2g BID for better pseudomonas coverage and given recurrent infections If not getting back to baseline in 48 hours will have to search for alternative diagnoses (2) Sepsis associated hypotension: Sepsis appears resolved (3) Post-traumatic paraplegia: Neurogenic bladder - continue oxybutynin (4) Urinary retention: Secondary to neurogenic bladder. Continue urinary catheter as recommended by Dr. Sweeney. Continue oxybutynin for bladder spasms (5) Hyperlipidemia: Continue atorvastatin (6) Ischemic cardiomyopathy: Appears to be stable now. (7) COPD (chronic obstructive pulmonary disease): No acute exacerbation Continue Symbicort 1 puff twice daily, albuterol sulfate every 6 hours as needed, pro-air HFA 2 puffs every 4 hours as needed. (8) Depression: Chronic diagnosis: - continue escitalopram 10 mg p.o. daily. (9) Paroxysmal A-fib: Continue rivaroxaban 20 mg p.o. daily. Continue digoxin 125 mcg daily. Will get level in AM. (10) Delirium: Secondary to infection Unclear if back to baseline at this time. (11) DVT prophylaxis: Continue Xarelto Subjective Unable to get any history from patient as he appears confused. Unable to reach his via phone to get history. Review of Systems Review of Systems: Unobtainable due to cognitive status Physical Exam Constitutional: well developed; + not well nourished and no acute distress Eyes: + anicteric sclerae; normal pupil size ENMT: external ear and nose normal, oropharynx normal Neck: normal visual inspection and trachea midline Respiratory: normal respiratory effort, lungs clear to auscultation Ausc ultation: + diminished lung sounds (poor inspiratory effort); no wheezes Cardiovascular: Rate/Rhythm: regular rate and regular rhythm Heart Sounds: normal S1, normal S2 and + murmur (systolic) Gastrointestinal (Abdomen): Inspection/Auscultation: abdomen normal to inspection and normal bowel sounds Percussion/Palpation: abdomen soft; abdomen nontender, no guarding and abdomen not rigid ileostomy with watery s tool present Musculoskeletal: paraplegia of lower limbs Skin: no rashes, warm and dry (no cellulitis of lower extremities) Neurologic: awake and + confused Psychiatric: Orientation: alert; + not oriented to person, + not oriented to place and + not oriented to time Lymphatic: no cervical or axillary lymphadenopathy Results & Data Vital Signs (Past 12 Hours) Vital Signs Temp Pulse Pulse Resp BP Pulse Ox 04/07/19 16:16 64 04/07/19 15:35 36.9 C 64 20 96/56 L 98 PG Care Time/CCT Total # of Minutes Spent Total Time Spent with Patient: Total time spent is greater than 50% in coordination of care (as documented) at patient's floor/unit and/or counseling patient: (1) UTI (urinary tract infection) Encounter type: initial encounter Indwelling urinary catheter type: indwelling urethral catheter Urinary tract infection type: catheter-associated UTI Qualified Code(s): T83.511A - Infection and inflammatory reaction due to indwelling urethral catheter, initial encounter; N39.0 - Urinary tract infection, site not specified
[2019-04-08 06:19] LABS: Basophils # (auto) 0.04 K/uL (0-0.2); Basophils % (auto) 0.5 %; Eosinophils # (auto) 0.72 K/uL (0-0.5); Eosinophils % (auto) 8.3 %; Hematocrit (blood only) 36.8 % (42-52); Hemoglobin 12.3 g/dL (14.0-18.0); Immature Granulocytes # (auto) 0.01 K/uL (0.00-0.02); Immature Granulocytes % (auto) 0.1 %; Lymphocytes % (auto) 17.3 %; Mean Corpuscular Hemoglobin 30.2 pg (25-34); Mean Corpuscular Hgb Conc 33.4 g/dL (32-36); Mean Corpuscular Volume 90.4 fL (80-100); Mean Platelet Volume 9.4 fL (7.4-10.4); Monocytes # (auto) 0.79 K/uL (0.11-0.59); Monocytes % (auto) 9.1 %; Neutrophils # (auto) 5.62 K/uL (1.4-6.5); Neutrophils % (auto) 64.7 %; Platelet Count 183 K/uL (130-400); RDW Coefficient of Variation 14.3 % (11.5-14.5); RDW Standard Deviation 47.3 fL (36.4-46.3); Red Blood Count 4.07 M/uL (4.7-6.1); White Blood Count 8.68 K/uL (4.8-10.8)
[2019-04-08 06:54] LABS: Albumin Level 2.8 gm/dl (3.4-5.0); Calcium 9.5 mg/dl (8.5-10.1); Creatinine Clr Calc Pharmacy 45.7 ml/min; Est GFR (African American) 88.7; Est GFR (Non-African American) 76.5; Magnesium 1.7 mg/dl (1.8-2.4); Potassium 3.6 mmol/L (3.5-5.1)
[2019-04-08 06:57] LABS: Albumin Globulin Ratio 0.6 (0.9-2); Bilirubin,Total 0.6 mg/dl (0.2-1); Globulin 4.4 gm/dl (2.5-4.0); Total Protein 7.2 gm/dl (6.4-8.2)
[2019-04-08] MEDS: LACTOBACILLUS ACIDOPHILUS 1 GM PACK PO SCH ×2 (07:30→21:45)
[2019-04-08] MEDS: BUDESONIDE/FORMOTEROL FUMARATE 160/4.5 60 PUFFS/INHALER INH SCH ×2 (07:30→21:45)
[2019-04-08] MEDS: NYSTATIN POWDER 15GM BTL EXT SCH ×3 (07:30→21:45)
[2019-04-08] MEDS: RIVAROXABAN 20 MG TAB PO SCH (07:31)
[2019-04-08] MEDS: PANTOprazole 40 MG TAB PO SCH (07:31)
[2019-04-08] MEDS: ESCITALOPRAM OXALATE 10 MG TAB PO SCH (07:31)
[2019-04-08] MEDS: ATORVASTATIN 40 MG TAB PO SCH (07:31)
[2019-04-08] MEDS: CHOLECALCIFEROL 1,000 UNITS TAB PO SCH (07:31)
[2019-04-08] MEDS: MAGNESIUM OXIDE 400 MG TAB PO SCH (07:31)
[2019-04-08] MEDS: CEROVITE ADV FORMULA TAB PO SCH (07:31)
[2019-04-08] MEDS: OXYBUTYNIN CHLORIDE 5 MG TAB PO SCH ×4 (07:31→21:45)
[2019-04-08] MEDS: CEFEPIME 2,000 MG in SYRINGE 7.5 ML IV SCH ×2 (09:24→21:46)
[2019-04-08] MEDS: DIGOXIN 0.125 MG TAB PO SCH (16:23)
--- NOTE | 2019-04-08 23:58 | Hospitalist Progress Note ---
Date of Service April 08, 2019 Assessment & Plan (1) UTI (urinary tract infection): Catheter associated UTI Urine culture - positive for Proteus and Pseudomonas. Recently changed catheter and recommended not to change again by Dr Sweeney in ER. Previously had traumatic catheterizations and recommended replacement only by urology. Continue cranberry 400 mg p.o. daily. Continue cefepime dosing to 2g BID - will discuss with ID possible alternative PO regimen for discharge however appears this if the only antibiotic that will provide adequate coverage. Appears to be improving but not yet back to baseline (2) Sepsis associated hypotension: Sepsis appears resolved (3) Post-traumatic paraplegia: Neurogenic bladder - continue oxybutynin (4) Urinary retention: Secondary to neurogenic bladder. Continue urinary catheter as recommended by Dr. Sweeney. Continue oxybutynin for bladder spasms. (5) Hyperlipidemia: Continue atorvastatin (6) Ischemic cardiomyopathy: Appears to be stable now. (7) COPD (chronic obstructive pulmonary disease): No acute exacerbation Continue Symbicort 1 puff twice daily, albuterol sulfate every 6 hours as needed, pro-air HFA 2 puffs every 4 hours as needed. (8) Depression: Chronic diagnosis: - continue escitalopram 10 mg p.o. daily. (9) Paroxysmal A-fib: Continue rivaroxaban 20 mg p.o. daily. Continue digoxin 125 mcg daily. digoxin level normal. (10) Delirium: Appears to be improving back to his baseline. (11) DVT prophylaxis: Continue Xarelto (12) Discharge planning issues: Some confusion whether patient is on hospice as per case management. Will consult palliative after [place] break to determine goals of care. Subjective Discussed care with his in AM and daughter at bedside when patient seen. His daughter feels his confusion is improving but not yet back to baseline. The patient denies any pain, shortness of breath. Apparently he had a chocolate brought in by a family member and coughing after this with increased O2 requirement therefore concerned for aspiration. No prior speech eval. Patient reports only having problems with eating for the last 2 weeks however I am unsure how accurate of a history this is. Review of Systems Review of Systems: Unobtainable due to cognitive status Physical Exam Constitutional: well developed; + not well nourished and no acute distress Eyes: + anicteric sclerae; normal pupil size ENMT: external ear and nose normal, oropharynx normal Neck: normal visual inspection and trachea midline Respiratory: normal respiratory effort, lungs clear to auscultation Auscultation: + diminished lung sounds (poor inspiratory effort); no wheezes Cardiovascular: Rate/Rhythm: regular rate and regular rhythm Heart Sounds: normal S1, normal S2 and + murmur (systolic) Gastrointestinal (Abdomen): Inspection/Auscultation: abdomen normal to inspection and normal bowel sounds Percussion/Palpation: abdomen soft; abdomen nontender, no guarding and abdomen not rigid ileostomy present, healthy appearing without surrounding cellulitis Musculoskeletal: unable to move b/l lower extremities due to paraplegia Skin: no rashes, warm and dry (no cellulitis of lower extremities) Neurologic: awake and + confused Psychiatric: Orientation: alert, oriented to person and oriented to place; + not oriented to time Lymphatic: no cervical or axillary lymphadenopathy Results & Data Vital Signs (Past 12 Hours) Vital Signs Temp Pulse Pulse Resp BP Pulse Ox 04/08/19 23:45 36.7 C 67 20 113/62 96 04/08/19 16:23 69 PG Care Time/CCT Total # of Minutes Spent Total Time Spent with Patient: Total time spent is greater than 50% in coordination of care (as documented) at patient's floor/unit and/or counseling patient: (1) UTI (urinary tract infection) Encounter type: initial encounter Indwelling urinary catheter type: indwelling urethral catheter Urinary tract infection type: catheter-associated UTI Qualified Code(s): T83.511A - Infection and inflammatory reaction due to indwelling urethral catheter, initial encounter; N39.0 - Urinary tract infection, site not specified
[2019-04-09 06:10] LABS: Basophils # (auto) 0.03 K/uL (0-0.2); Basophils % (auto) 0.3 %; Eosinophils # (auto) 0.75 K/uL (0-0.5); Eosinophils % (auto) 7.7 %; Hematocrit (blood only) 37.8 % (42-52); Hemoglobin 12.2 g/dL (14.0-18.0); Immature Granulocytes # (auto) 0.03 K/uL (0.00-0.02); Immature Granulocytes % (auto) 0.3 %; Lymphocytes # (auto) 1.47 K/uL (1.2-3.4); Lymphocytes % (auto) 15.1 %; Mean Corpuscular Hemoglobin 29.3 pg (25-34); Mean Corpuscular Hgb Conc 32.3 g/dL (32-36); Mean Corpuscular Volume 90.9 fL (80-100); Mean Platelet Volume 9.4 fL (7.4-10.4); Monocytes # (auto) 0.92 K/uL (0.11-0.59); Monocytes % (auto) 9.5 %; Neutrophils # (auto) 6.51 K/uL (1.4-6.5); Neutrophils % (auto) 67.1 %; Platelet Count 187 K/uL (130-400); RDW Standard Deviation 46.3 fL (36.4-46.3); Red Blood Count 4.16 M/uL (4.7-6.1); White Blood Count 9.71 K/uL (4.8-10.8)
[2019-04-09 06:34] LABS: Albumin Level 2.7 gm/dl (3.4-5.0); BUN Creatinine Ratio 21.9 (10-20); Calcium 9.5 mg/dl (8.5-10.1); Creatinine Clr Calc Pharmacy 49.7 ml/min; Est GFR (African American) 91.8; Est GFR (Non-African American) 79.2
[2019-04-09 06:37] LABS: Albumin Globulin Ratio 0.6 (0.9-2); Bilirubin,Total 0.5 mg/dl (0.2-1); Globulin 4.4 gm/dl (2.5-4.0); Total Protein 7.1 gm/dl (6.4-8.2)
[2019-04-09] MEDS: ESCITALOPRAM OXALATE 10 MG TAB PO SCH (08:26)
[2019-04-09] MEDS: CHOLECALCIFEROL 1,000 UNITS TAB PO SCH (08:27)
[2019-04-09] MEDS: RIVAROXABAN 20 MG TAB PO SCH (08:27)
[2019-04-09] MEDS: ATORVASTATIN 40 MG TAB PO SCH (08:27)
[2019-04-09] MEDS: CEROVITE ADV FORMULA TAB PO SCH (08:27)
[2019-04-09] MEDS: MAGNESIUM OXIDE 400 MG TAB PO SCH (08:27)
[2019-04-09] MEDS: LACTOBACILLUS ACIDOPHILUS 1 GM PACK PO SCH ×2 (08:27→21:26)
[2019-04-09] MEDS: BUDESONIDE/FORMOTEROL FUMARATE 160/4.5 60 PUFFS/INHALER INH SCH ×2 (08:28→21:26)
[2019-04-09] MEDS: OXYBUTYNIN CHLORIDE 5 MG TAB PO SCH ×4 (08:28→21:26)
[2019-04-09] MEDS: PANTOprazole 40 MG TAB PO SCH (08:28)
[2019-04-09] MEDS: NYSTATIN POWDER 15GM BTL EXT SCH ×3 (08:29→21:27)
[2019-04-09] MEDS: CEFEPIME 2,000 MG in SYRINGE 7.5 ML IV SCH ×2 (11:01→21:25)
[2019-04-09] MEDS: DIGOXIN 0.125 MG TAB PO SCH (15:49)
--- NOTE | 2019-04-09 19:54 | Hospitalist Progress Note ---
Date of Service April 09, 2019 Assessment & Plan (1) UTI (urinary tract infection): Catheter associated UTI Urine culture - positive for Proteus and Pseudomonas. Recently changed catheter and recommended not to change again by Dr Sweeney in ER. Previously had traumatic catheterizations and recommended replacement only by urology. Continue cranberry 400 mg p.o. daily. Continue cefepime dosing to 2g BID - consult infectious disease for possible alternative PO regimen and duration of treatment given recurrent infections. Appears to be mostly back to baseline at this time. (2) Sepsis associated hypotension: Sepsis resolved (3) Post-traumatic paraplegia: Neurogenic bladder - continue oxybutynin (4) Urinary retention: Secondary to neurogenic bladder. Continue urinary catheter as recommended by Dr. Sweeney. Continue oxybutynin for bladder spasms. (5) Hyperlipidemia: Continue atorvastatin (6) Ischemic cardiomyopathy: Appears to be stable now. (7) COPD (chronic obstructive pulmonary disease): No acute exacerbation Continue Symbicort 1 puff twice daily, albuterol sulfate every 6 hours as needed, pro-air HFA 2 puffs every 4 hours as needed. (8) Depression: Chronic diagnosis: - continue escitalopram 10 mg p.o. daily. (9) Paroxysmal A-fib: Continue rivaroxaban 20 mg p.o. daily. Continue digoxin 125 mcg daily. digoxin level normal. (10) Delirium: Appears to be improving back to his baseline. (11) DVT prophylaxis: Continue Xarelto (12) Discharge planning issues: Some confusion whether patient is on hospice as per case management. Plan to consult palliative care after [place] break to determine goals of care. Medically cleared for discharge once outpatient care is established. Subjective Patient appears to be improving every day. No current concerns or questions. Updated his over the phone - she also reports she felt he was improving when she saw him earlier in the day. Discussed recent change in cronin catheter with his and she reported this appeared to be somewhat traumatic although not as bad as previous occasion last year when his cronin balloon noted in on imaging in his prostate. Review of Systems Review of Systems: All systems reviewed & are unremarkable except as noted in HPI & below Physical Exam Constitutional: well developed; + not well nourished and no acute distress Eyes: + anicteric sclerae; normal pupil size ENMT: external ear and nose normal, oropharynx normal Neck: normal visual inspection and trachea midline Respiratory: normal respiratory effort, lungs clear to auscultation Auscultation: + diminished lung sounds (poor inspiratory effort); no crackles and no wheezes Cardiovascular: Rate/Rhythm: regular rate and regular rhythm Heart Sounds: normal S1, normal S2 and + murmur (systolic) Gastrointestinal (Abdomen): Inspection/Auscultation: abdomen normal to inspection and normal bowel sounds Percussion/Palpation: abdomen soft; abdomen nontender, no guarding and abdomen not rigid Musculoskeletal: no cyanosis or clubbing, extremities motor strength 5/5 Skin: no rashes, warm and dry Neurologic: + focal motor deficit (b/l lower extremity paraplegia) and awake; not confused Psychiatric: A+Ox3, euthymic affect Results & Data Vital Signs (Past 12 Hours) Vital Signs Temp Pulse Resp BP Pulse Ox 04/09/19 15:00 36.7 C 63 18 106/63 97 PG Care Time/CCT Total # of Minutes Spent Total Time Spent with Patient: Total time spent is greater than 50% in coordination of care (as documented) at patient's floor/unit and/or counseling patient: (1) UTI (urinary tract infection) Encounter type: initial encounter Indwelling urinary catheter type: indwelling urethral catheter Urinary tract infection type: catheter-associated UTI Qualified Code(s): T83.511A - Infection and inflammatory reaction due to indwelling urethral catheter, initial encounter; N39.0 - Urinary tract infection, site not specified
[2019-04-10 05:34] LABS: Basophils # (auto) 0.04 K/uL (0-0.2); Basophils % (auto) 0.5 %; Eosinophils # (auto) 0.56 K/uL (0-0.5); Eosinophils % (auto) 6.6 %; Hematocrit (blood only) 36.4 % (42-52); Hemoglobin 11.8 g/dL (14.0-18.0); Immature Granulocytes # (auto) 0.04 K/uL (0.00-0.02); Immature Granulocytes % (auto) 0.5 %; Lymphocytes # (auto) 1.36 K/uL (1.2-3.4); Lymphocytes % (auto) 16.1 %; Mean Corpuscular Hemoglobin 29.4 pg (25-34); Mean Corpuscular Hgb Conc 32.4 g/dL (32-36); Mean Corpuscular Volume 90.8 fL (80-100); Mean Platelet Volume 9.4 fL (7.4-10.4); Monocytes # (auto) 0.76 K/uL (0.11-0.59); Neutrophils % (auto) 67.3 %; Platelet Count 191 K/uL (130-400); RDW Coefficient of Variation 13.9 % (11.5-14.5); RDW Standard Deviation 46.6 fL (36.4-46.3); Red Blood Count 4.01 M/uL (4.7-6.1); White Blood Count 8.46 K/uL (4.8-10.8)
[2019-04-10 05:52] LABS: Albumin Level 2.8 gm/dl (3.4-5.0); BUN Creatinine Ratio 18.3 (10-20); Calcium 9.2 mg/dl (8.5-10.1); Creatinine Clr Calc Pharmacy 42.7 ml/min; Est GFR (African American) 84.1; Est GFR (Non-African American) 72.5
[2019-04-10 05:54] LABS: Albumin Globulin Ratio 0.6 (0.9-2); Bilirubin,Total 0.4 mg/dl (0.2-1); Globulin 4.4 gm/dl (2.5-4.0); Total Protein 7.2 gm/dl (6.4-8.2)
[2019-04-10] MEDS: NYSTATIN POWDER 15GM BTL EXT SCH ×3 (08:02→20:36)
[2019-04-10] MEDS: BUDESONIDE/FORMOTEROL FUMARATE 160/4.5 60 PUFFS/INHALER INH SCH ×2 (08:02→20:36)
[2019-04-10] MEDS: CHOLECALCIFEROL 1,000 UNITS TAB PO SCH (08:03)
[2019-04-10] MEDS: ESCITALOPRAM OXALATE 10 MG TAB PO SCH (08:03)
[2019-04-10] MEDS: OXYBUTYNIN CHLORIDE 5 MG TAB PO SCH ×4 (08:03→20:36)
[2019-04-10] MEDS: PANTOprazole 40 MG TAB PO SCH (08:03)
[2019-04-10] MEDS: RIVAROXABAN 20 MG TAB PO SCH (08:03)
[2019-04-10] MEDS: ATORVASTATIN 40 MG TAB PO SCH (08:03)
[2019-04-10] MEDS: LACTOBACILLUS ACIDOPHILUS 1 GM PACK PO SCH ×2 (08:03→20:36)
[2019-04-10] MEDS: MAGNESIUM OXIDE 400 MG TAB PO SCH (08:03)
[2019-04-10] MEDS: CEROVITE ADV FORMULA TAB PO SCH (08:03)
[2019-04-10] MEDS: CEFEPIME 2,000 MG in SYRINGE 7.5 ML IV SCH ×2 (10:25→22:00)
--- NOTE | 2019-04-10 14:02 | Palliative Care Consultation ---
Date of Consultation April 10, 2019 Assessment & Plan (1) Goals of care, counseling/discussion: Patient is an 88-year-old male with a past medical history significant for severe pulmonary hypertension, ICMO-status post AICD in 2008, posttraumatic paraplegia with neuro genic bladder and indwelling Gupta who was brought to the emergency room on 04/04 ,by his ,for altered mental status. Patient is awake and alert on exam, oriented to person place and year, he reports anytime he says something "funny, like I am going to go here or there, my because the ambulance and brings you to the hospital". Patient has an indwelling Gupta that is changed monthly at urology-it was last changed on 04/03. Patient has chronic cloudy urine. Patient's white count was 11.1, increased from his baseline at 8.59.5, lactic acid was slightly elevated at 2.6. Patient's urinalysis was positive for leukocyte esterase but negative for nitrite-his cultures grew out Proteus and Pseudomonas. EMR shows 2 UTIs in February-1 Klebsiella and 1 Proteus, a prior UTI in March that grew out Pseudomonas. Patient is considered likely colonized-is on cranberry supplementation for suppression. Patient is an active hospice patient with [facility] for ICMO and heart disease. Patient may remain on hospice services and that this hospitalization is unrelated to his hospice diagnosis. Patient was noted to be alert and oriented x3 in the emergency room and on admission exam, he did exhibit confusion on 04/06 and 04/07, mental status cleared starting on 04/08 and is clear on exam today. Patient does exhibit times of confusion where he talks about being able to walk-patient has not been ambulatory for quite some time. - Collaborated with attending physician who was able to speak with his later this afternoon-patient is DNR/DNI, do not have plans to turn off his AICD at this point. Patient can continue IV antibiotics if needed via home health, as well as continue hospice support for his heart disease. (2) Confusion: Suspect patient has waxing and waning mental status-as he was noted to be alert and oriented x3 in the emergency room and on admission on 04/04. Did not exhibit confusion until 04/06 through 04/07. Mental status cleared again when seen on 04/08. (3) Neurogenic bladder: Patient with neurogenic bladder and indwelling Gupta-followed closely by urology. Patient likely colonized at this point-further recommendations regarding suppressive therapy as per urology. (4) Ischemic cardiomyopathy: EF 30%-status post AICD placed in 2008, severe pulmonary hypertension noted on echo with PASP of 6070 mmHg -patient on hospice care with [facility]. 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 Edwin Arce Attending Physician: dEwin Arce MD History of Present Illness Patient seen and examined in room 453, patient's granddaughter in law, who is an anesthesia [employer] here at [facility], at bedside. Patient not sure his and daughter will be in later today, states they were in to see him yesterday. Patient is an 88-year-old male with a past medical history significant for severe pulmonary hypertension, ICMO-status post AICD in 2008, posttraumatic paraplegia with neuro genic bladder and indwelling Gupta who was brought to the emergency room on 04/04 ,by his ,for altered mental status. Patient is awake and alert on exam, oriented to person place and year, he reports anytime he says something "funny, like I am going to go here or there, my because the ambulance and brings you to the hospital". Patient has an indwelling Gupta that is changed monthly at urology-it was last changed on 04/03. Patient has chronic cloudy urine. Patient's white count was 11.1, increased from his baseline at 8.59.5, lactic acid was slightly elevated at 2.6. Patient's urinalysis was positive for leukocyte esterase but negative for nitrite-his cult ures grew out Proteus and Pseudomonas. EMR shows 2 UTIs in February-1 Klebsiella and 1 Proteus, a prior UTI in March that grew out Pseudomonas. Patient is considered likely colonized-is on cranberry supplementation for suppression. Patient is an active hospice patient with [facility] for ICMO and heart disease. Patient may remain on hospice services and that this hospitalization is unrelated to his hospice diagnosis. Patient was noted to be alert and oriented x3 in the emergency room and on admission exam, he did exhibit confusion on 04/06 and 04/07, mental status cleared starting on 04/08 and is clear on exam today. Patient does exhibit times of confusion where he talks about being able to walk-patient has not been ambulatory for quite some time. Collaborated with attending physician who was able to speak with his later this afternoon-patient is DNR/DNI, do not have plans to turn off his AICD at this point. Patient can continue IV antibiotics if needed via home health, as well as continue hospice support for his heart disease. Allergies Allergy/AdvReac Type Severity Reaction Status Date / Time banana Allergy Mild Abdominal Verified 04/04/19 17:34 Pain nitrofurantoin Allergy Unknown Unknown Verified 04/04/19 17:34 Sulfa (Sulfonamide Allergy Unknown Unknown Verified 04/04/19 17:34 Antibiotics) NSAIDS (Non-Steroidal AdvReac Severe internal Verified 04/04/19 17:34 Anti-Inflamma bleeding Food Allergy Severe ANAPHYLAXIS Uncoded 04/04/19 17:34 WITH RADISHES/ DIFFICULTY BREATHING HORSERADISH Home Medications Home Medications Medication Instructions Recorded Confirmed Type Lactinex 1 tab PO BID 01/12/18 04/04/19 History atorvastatin 40 mg PO DAILY 01/12/18 04/04/19 History cholecalciferol (vitamin D3) 1,000 units PO DAILY 01/12/18 04/04/19 History [Vitamin D3] cranberry 400 mg PO DAILY 01/12/18 04/04/19 History hydrocortisone 1 applic TOPICAL DAILY PRN 01/12/18 04/04/19 History magnesium oxide 400 mg PO DAILY 01/12/18 04/04/19 History melatonin 3 mg PO HS PRN 01/12/18 04/04/19 History omeprazole 40 mg PO DAILY 01/12/18 04/04/19 History sodium chloride [Saline Nasal] 1 spray INTRANASAL BID PRN 01/12/18 04/04/19 History Symbicort 1 puff INHALATION BID 02/22/18 04/04/19 History albuterol sulfate [ProAir HFA] 1 - 2 puff INHALATION Q4H PRN 02/22/18 04/04/19 History guaifenesin [Mucinex] 600 mg PO Q12H PRN 02/22/18 04/04/19 History albuterol sulfate 1 vial INHALATION Q6H PRN 03/29/18 04/04/19 History tzmzbdiuzavr-zxxi-zlvfa acid 1 tab PO QAM 05/11/18 04/04/19 History mupirocin 2 % topical ointment 1 applic TOPICAL TID PRN #22 gm 09/19/18 04/04/19 Rx oxybutynin chloride 5 mg tablet 5 mg PO QID tab 11/12/18 04/04/19 History rivaroxaban 20 mg tablet 20 mg PO DAILY #30 tab 01/24/19 04/04/19 Rx diaper,brief,adult,disposable #32 ea 02/20/19 03/20/19 Rx nystatin 100,000 unit/gram topical 1 appln TOP TID #30 gm 03/17/19 04/04/19 Rx powder digoxin 125 mcg (0.125 mg) tablet 125 mcg PO DAILY #90 tab 04/04/19 04/04/19 Rx escitalopram oxalate 10 mg PO DAILY 04/04/19 04/04/19 History Patient History Medical History Acrochordon Acute UTI (Inactive) Allergic rhinitis Bacteremia Blister of foot Bloating Breast lump C. difficile diarrhea CAD (coronary artery disease) (Chronic) Cauda equina syndrome with neurogenic bladder Chronic indwelling Gupta catheter (Acute) Colostomy (Chronic 05/20/12) COPD (chronic obstructive pulmonary disease) (Chronic) Coronary artery disease, occlusive (Acute) Decubitus ulcer of sacral region Diarrhea Elevated prostate specific antigen (PSA) Esophageal reflux (Acute) Family history of cancer (10/26/12) Folliculitis Herpes zoster Hiatal hernia (Acute) History of pseudomembranous enterocolitis History of skin pruritus Hospital discharge follow-up Hx pulmonary embolism (Chronic) Hyperlipidemia (Acute) Hyponatremia Hypotension ICD (implantable cardioverter-defibrillator) in place (Acute) Incontinence Influenza Influenza A Ischemic cardiomyopathy (Acute) Left ankle injury Muscle spasm Myocardial infarction Neoplasm of uncertain behavior of skin Neurogenic bladder (Acute) Pacemaker (Chronic) Paraplegia (Resolved 05/20/12) Paroxysmal atrial fibrillation Personal history of urinary (tract) infection Pneumonia Post-traumatic paraplegia (Acute) Pulmonary hypertension (Acute) Pyelonephritis Rash Reactive depression (situational) (Acute) Seborrheic keratosis Seborrheic keratosis, inflamed Sensorineural hearing loss (SNHL) of both ears (Acute) Sepsis Sepsis Sepsis due to Pseudomonas aeruginosa Shortness of breath SIRS (systemic inflammatory response syndrome) Systemic inflammatory response syndrome (SIRS) due to infectious process without acute organ dysfunction Urinary retention (Resolved) Vasovagal syncope Viral warts Wound, open Surgical History History of ankle surgery History of back surgery History of blood transfusion two within the last 10 years History of ileostomy History of partial colectomy Family History Other No pertinent family history Social History Preferred Language: Italian Communication Ability: Effective Visual Impairment: No Limitations Hearing Ability: Use of Hearing Aid 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 Required: No Beliefs That Will Affect Care: None marital status: Current Living Situation: Spouse current occupational status: retired Other Information That Helps Us Care for You: No Feels Safe at Home: Yes Safety Concerns: Feels Safe At This Time Smoking Status: Never smoker Do You Dip or Chew Tobacco: No ; Second Hand Exposure: No ; Tobacco Cessation Education Requested by Patient: No Hx Alcohol Use: No Hx Substance Use: No Childhood Exposure to Second-Hand Smoke: No Other Diet Comment: regular Dental Care, Regularly: No Physical Activity Frequency: Does not Exercise Physical Activity Frequency Comment: due to physical condition Seatbelt Use: always Sunscreen Use: No Review of Systems Review of Systems: Patient denies fever, chills, chest pain, shortness of breath, or abdominal pain Patient with good appetite Physical Exam Physical Exam: PE: Patient awake and alert, no acute distress HEENT: EOMI, corrective lenses, mild [place] Respirations: Clear breath sounds bilaterally CV: Regular rate, no edema Abdomen: Soft, nontender, not distended Extremities: Lower extremity paraplegia Neuro: Oriented to person, place and year Psych: Appropriate Results & Data Vital Signs (Past 12 Hours) Vital Signs Temp Pulse Resp BP Pulse Ox 04/10/19 06:05 99.0 F 68 19 115/63 99 PG Care Time/CCT Total # of Minutes Spent Total Time Spent with Patient: Total time spent is greater than 50% in coordination of care (as documented) at patient's floor/unit and/or counseling patient: Time Spent Attending Total time spent 70 minutes with greater than 50% of the time at bedside assessing patient's current status as well as discussing goals of care with patient.
[2019-04-10] MEDS: DIGOXIN 0.125 MG TAB PO SCH (16:13)
--- NOTE | 2019-04-10 20:37 | Hospitalist Progress Note ---
Date of Service April 10, 2019 Assessment & Plan (1) UTI (urinary tract infection): Catheter associated UTI Urine culture - positive for Proteus and Pseudomonas. Recently changed catheter and recommended not to change again by Dr Sweeney in ER. Previously had traumatic catheterizations and recommended replacement only by urology. Continue cefepime dosing to 2g BID - no ID consult available at this time, therefore will finish course of this with hospice care. Appears to be back to baseline and medically stable for discharge at this time pending outpatient Abx approval (2) Sepsis associated hypotension: Sepsis appears resolved (3) Post-traumatic paraplegia: Neurogenic bladder - continue oxybutynin (4) Urinary retention: Secondary to neurogenic bladder. Continue urinary catheter as recommended by Dr. Sweeney. Continue oxybutynin for bladder spasms. (5) Hyperlipidemia: Continue atorvastatin (6) Ischemic cardiomyopathy: Appears to be stable now. (7) COPD (chronic obstructive pulmonary disease): No acute exacerbation Continue Symbicort 1 puff twice daily, albuterol sulfate every 6 hours as needed, pro-air HFA 2 puffs every 4 hours as needed. (8) Depression: Chronic diagnosis: - continue escitalopram 10 mg p.o. daily. (9) Paroxysmal A-fib: Currently in regular rhythm. Continue rivaroxaban 20 mg p.o. daily. Continue digoxin 125 mcg daily. digoxin level normal. (10) Delirium: Appears back to his baseline. (11) DVT prophylaxis: Continue Xarelto (12) Discharge planning issues: Discussed with Dr Bedoya. Plan for patient to go home with hospice once antibiotics can be set up at home. Discussed with his , patient is DNR/DNI, however ICD is to remain on at present. Subjective No acute events overnight. No current concerns or questions. Discussed with his at bedside. Updated his over the phone - she also reports she felt he was improving when she saw him earlier in the day. Discussed recent change in cronin catheter with his and she reported this appeared to be somewhat traumatic although not as bad as previous occasion last year when his cronin balloon noted in on imaging in his prostate. Review of Systems Review of Systems: All systems reviewed & are unremarkable except as noted in HPI & below Physical Exam Constitutional: well developed; + not well nourished and no acute distress Eyes: + anicteric sclerae; normal pupil size ENMT: external ear and nose normal, oropharynx normal Neck: normal visual inspection and trachea midline Respiratory: normal respiratory effort; no respiratory distress Auscultation: + diminished lung sounds (poor inspiratory effort); no crackles and no wheezes Cardiovascular: Rate/Rhythm: regular rate and regular rhythm Heart Sounds: normal S1, normal S2 and + murmur (systolic) Gastrointestinal (Abdomen): Inspection/Auscultation: abdomen normal to inspection and normal bowel sounds Percussion/Palpation: abdomen soft; abdomen nontender, no guarding and abdomen not rigid Skin: no rashes, warm and dry Neurologic: + focal motor deficit (b/l lower extremity paraplegia) and awake; not confused Psychiatric: Orientation: alert, oriented to person, oriented to place and oriented to time (year only) Genitourinary: no CVA tenderness Lymphatic: no cervical or axillary lymphadenopathy Results & Data Vital Signs (Past 12 Hours) Vital Signs Temp Pulse Pulse Resp BP Pulse Ox 04/10/19 16:13 70 04/10/19 15:00 37.1 C 78 20 120/66 91 PG Care Time/CCT Total # of Minutes Spent Total Time Spent with Patient: Total time spent is greater than 50% in coordination of care (as documented) at patient's floor/unit and/or counseling patient: (1) UTI (urinary tract infection) Encounter type: initial encounter Indwelling urinary catheter type: indwelling urethral catheter Urinary tract infection type: catheter-associated UTI Qualified Code(s): T83.511A - Infection and inflammatory reaction due to indwelling urethral catheter, initial encounter; N39.0 - Urinary tract infection, site not specified
[2019-04-11] MEDS: BUDESONIDE/FORMOTEROL FUMARATE 160/4.5 60 PUFFS/INHALER INH SCH (07:30)
[2019-04-11] MEDS: OXYBUTYNIN CHLORIDE 5 MG TAB PO SCH ×2 (07:31→12:50)
[2019-04-11] MEDS: ATORVASTATIN 40 MG TAB PO SCH (07:31)
[2019-04-11] MEDS: CHOLECALCIFEROL 1,000 UNITS TAB PO SCH (07:31)
[2019-04-11] MEDS: NYSTATIN POWDER 15GM BTL EXT SCH ×2 (07:31→12:50)
[2019-04-11] MEDS: PANTOprazole 40 MG TAB PO SCH (07:31)
[2019-04-11] MEDS: LACTOBACILLUS ACIDOPHILUS 1 GM PACK PO SCH (07:31)
[2019-04-11] MEDS: RIVAROXABAN 20 MG TAB PO SCH (07:31)
[2019-04-11] MEDS: MAGNESIUM OXIDE 400 MG TAB PO SCH (07:31)
[2019-04-11] MEDS: CEROVITE ADV FORMULA TAB PO SCH (07:31)
[2019-04-11] MEDS: ESCITALOPRAM OXALATE 10 MG TAB PO SCH (07:31)
[2019-04-11 07:38] VITALS: PULSE 77; TEMP 98.4; O2SAT 93
[2019-04-11] MEDS: CEFEPIME 2,000 MG in SYRINGE 7.5 ML IV SCH (10:06)
--- NOTE | 2019-04-11 14:37 | Discharge Summary ---
Date of Service April 11, 2019 Admission HPI Per Admitting Provider Patient is a 88 years old male with past medical history of colostomy, urinary retention, COPD, paroxysmal atrial fibrillation with pacemaker, coronary artery disease, hyperlipidemia, 6 ICD implanted cardioverter defibrillator who was brought to the emergency room with a complaint by patient of urinary symptoms started today. Per nursing staff, the patient has a Gupta in due to paralysis from the leg down. Patient stated that she called EMS today because she believed that patient have another UTI. Patient states that patient had urinary tract infection 2 weeks ago and he was treated with do xycycline and Bactrim. She also noted that patient has a right foot cellulitis. Patient usually uses 2 L of supplemental oxygen. Patient had his urinary catheter changed yesterday. Patient denies fever, chills, chest pain, shortness of breath, abdominal pain, frequency, urgency. Patient was able to answer to questions appropriately. Patient mentioned that patient urine was cloudy. Labs are reviewed: Which shows WBCs 11.10, hematocrit 42.1, hemoglobin 14.4, platelets 192, PT 15.3, INR 1.5, APTT 44.1. Sodium 135, potassium 4, chloride 98, BUN 10, creatinine 1, GFR 66.4, lactate 2.6, repeated lactate 1.8. Urine appears to be cloudy, 2+ positive blood negative nitrate 3+ positive leukocyte esterase over 30 WBCs negative for bacteria. Negative for influenza A&B. Chest x-ray is cardiomediastinal and hilar silhouette are unchanged. Left subclavian/AICD pacer is unchanged. Hyperinflation with chronic blunting of the costophrenic angles. Increased lucency of the lungs areas of unchanged moderate coarsening suggesting emphysema. No pneumothorax, large pleural effusion, overt pulmonary edema or focal airspace consolidation typical for pneumonia. Unchanged mild medial left lung base scaring/atelectasis. Degenerative changes of the shoulder and spine. Extensive fusion hardware of the thoracolumbar spine. Decision was made to admit patient for sepsis most likely due to urinary tract infection at PCU on telemetry. Admission Exam Per Admitting Provider Constitutional: WD/WN, vitals as above well developed and well nourished Eyes: PERRL, conjunctivae normal, anicteric sclerae ENMT: external ear and nose normal, oropharynx normal Neck: trachea midline, no thyromegaly Respiratory: normal respiratory effort, lungs clear to auscultation Auscultation: + diminished lung sounds, + wheezes and + egophony Cardiovascular: Rate/Rhythm: regular rate Heart Sounds: normal S1, normal S2 and + murmur Gastrointestinal (Abdomen): Colostomy Musculoskeletal: no cyanosis or clubbing, extremities motor strength 5/5 Skin: no rashes, warm and dry Neurologic: patellar DTR's 2+ bilat, sensation intact Psychiatric: A+Ox3, euthymic affect Patient is poor historian but able to answer to her questions appropriately. Lymphatic: no cervical or axillary lymphadenopathy Principal Diagnosis Sepsis from catheter associated urine tract infection Altered mental state Discharge Exam Constitutional well developed; + not well nourished and no acute distress Eyes + anicteric sclerae; normal pupil size ENMT external ear and nose normal, oropharynx normal Neck normal visual inspection and trachea midline Respiratory normal respiratory effort, lungs clear to auscultation normal respiratory effort; no respiratory distress Auscultation: + diminished lung sounds (poor inspiratory effort); no crackles and no wheezes Cardiovascular Rate/Rhythm: regular rate and regular rhythm Heart Sounds: normal S1, normal S2 and + murmur (systolic) Gastrointestinal (Abdomen) Inspection/Auscultation: abdomen normal to inspection (colostomy bag present) and normal bowel sounds Percussion/Palpation: abdomen soft; abdomen nontender, no guarding and abdomen not rigid Skin no rashes, warm and dry Neurologic + focal motor deficit (b/l lower extremity paraplegia) and awake; not confused Psychiatric Orientation: alert, oriented to person, oriented to place and oriented to time (year only) Genitourinary no CVA tenderness Discharge Data Allergies Allergy/AdvReac Type Severity Reaction Status Date / Time banana Allergy Mild Abdominal Verified 04/04/19 17:34 Pain nitrofurantoin Allergy Unknown Unknown Verified 04/04/19 17:34 Sulfa (Sulfonamide Allergy Unknown Unknown Verified 04/04/19 17:34 Antibiotics) NSAIDS (Non-Steroidal AdvReac Severe internal Verified 04/04/19 17:34 Anti-Inflamma bleeding Food Allergy Severe ANAPHYLAXIS Uncoded 04/04/19 17:34 WITH RADISHES/ DIFFICULTY BREATHING HORSERADISH Consultations 04/04/19 19:07 ED Decision to Admit Stat 04/04/19 21:29 Consult Case Management - Discharge Planning Routine 04/09/19 19:20 Consult Infectious Diseases Routine 04/09/19 19:21 Consult Palliative Care Routine Hospital Course (1) UTI (urinary tract infection): Scar Rockwell is an 88 year old male admitted to [facility] from April 04 to 2018 due to altered mental state and generalized weakness. He was diagnosed with sepsis due to catheter associated urine tract infection. This was treated with intravenous cefepime (antibiotic) and subsequent urine culture positive for Proteus and Pseudomonas he will continue on IV cefepime for total of 14 days. Ultrasound guided line was inserted on April 10 2019 to enable this. He has hospice care via [facility] and will be discharged to [facility] for further treatment. (2) Sepsis associated hypotension: (3) Post-traumatic paraplegia: (4) Urinary retention: (5) Hyperlipidemia: (6) Ischemic cardiomyopathy: (7) COPD (chronic obstructive pulmonary disease): (8) Depression: (9) Paroxysmal A-fib: (10) Delirium: Total Time Total Time Spent Total Time Spent (In Minutes): 35 Total Time Includes: Examination of the Patient, Discharge Planning and Medication Reconciliation Discharge Plan Discharge Items Patient Disposition: Hospice - Medical Facility Reason For Visit: SEPSIS,UTI Discharge Diagnosis: Sepsis from catheter associated urine tract infection Altered mental state Condition on Discharge: Good Activity: Resume your previous activity Non-emergency contact: Primary Care Provider Call non-emergency contact if: you have any medication questions and your temperature is above 101 Follow-up/Referrals: Iam Yang MD [Primary Care Provider] - Dietitian Info: Minced and Moist Diet: Regular Addtl Attending Provider Instructions: You were admitted to [facility] from April 04 to 2018 due to altered mental state and generalized weakness. You were diagnosed with sepsis due to catheter associated urine tract infection. This was treated with intravenous cefepime (antibiotic) and given culture and sensitivities of Proteus and Pseudomonas urine cultures grown recommend continuing with the cefepime therefore an ultrasound guided line was inserted on April 10 2019 to enable this. Of note he is chronically on 2L of oxygen via nasal cannula. He has hospice care via [facility] and will be discharged to [facility] for further treatment. Pending Studies at Discharge: No Stand-Alone Forms: [facility] Skilled Items Patient informed of condition?: Yes DNR: Yes Discharge Level of Care: Acute rehab Communicable Disease: No Discharge Prognosis: Stable Lines: US Guided Peripheral IV Urinary Catheter: Yes (Chronic (only to be changed by his urologist)) Medications and DC Order Prescriptions: Continued mupirocin 2 % ointment 1 applic Topical TID PRN (Reason: Skin Irritation) Qty: 22 RF: 2 rivaroxaban 20 mg tablet 20 mg PO DAILY Qty: 30 RF: 3 (DME) Prevail Underwear misc See Dose Instructions .ROUTE .MEDSUPPLY Qty: 32 RF: 0 nystatin 100,000 unit/gram powder 1 appln TOP TID Qty: 30 RF: 0 digoxin 125 mcg (0.125 mg) tablet 125 mcg PO DAILY Qty: 90 RF: 3 oxybutynin chloride 5 mg tablet 5 mg PO QID RF: 0 atorvastatin 40 mg tablet 40 mg PO DAILY RF: 0 omeprazole 40 mg capsule,delayed release(DR/EC) 40 mg PO DAILY RF: 0 melatonin 3 mg Tablet 3 mg PO HS PRN (Reason: Sleep) RF: 0 magnesium oxide 400 mg (241.3 mg magnesium) Tablet 400 mg PO DAILY RF: 0 cranberry 400 mg Capsule 400 mg PO DAILY RF: 0 hydrocortisone 2.5 % Cream 1 applic TOPICAL DAILY PRN (Reason: Skin Irritation) RF: 0 sodium chloride [Saline Nasal] 0.65 % Aerosol,[place] 1 spray INTRANASAL BID PRN (Reason: Nasal Dryness) RF: 0 Lactinex 100 million cell Granules In Packet 1 tab PO BID RF: 0 cholecalciferol (vitamin D3) [Vitamin D3] 1,000 unit Tablet 1,000 units PO DAILY RF: 0 albuterol sulfate [ProAir HFA] 90 mcg/actuation Hfa Aerosol Inhaler 1 - 2 puff INHALATION Q4H PRN (Reason: Shortness Of Breath Or Wheezing) RF: 0 Symbicort 160-4.5 mcg/actuation Hfa Aerosol Inhaler 1 puff INHALATION BID RF: 0 guaifenesin [Mucinex] 600 mg Tablet Extended Release 12hr 600 mg PO Q12H PRN (Reason: Congestion) RF: 0 albuterol sulfate 2.5 mg /3 mL (0.083 %) solution for nebulization 1 vial Inhalation Q6H PRN (Reason: Shortness Of Breath Or Wheezing) RF: 0 escitalopram oxalate 10 mg tablet 10 mg PO DAILY RF: 0 xxrdrahrsina-yjqf-rvgte acid 18-400 mg-mcg tablet 1 tab PO QAM RF: 0 Discharge Orders: Discharge Order (Routine); Ordered 04/11/19 Ordered By: Edwin Arce Admission Data Admit Date/Time: 04/04/19 19:26 Attending Provider: Edwin Arce Admit Provider: Aniya De Jesus Primary Care Provider: Iam Yang Other Providers: Aniya De Jesus ; Emma Marroquin ; Rebecca Lee ; Bhavani, Other Interventions: Discharge Summary Assessment (RN) Last Done: 04/11/19 14:40 DC Date/Time DO NOT enter until pt leaves facility: 04/11/19 15:55
[2019-04-11 14:41] VITALS: BP 106/56
== END 2019-04-11 15:55 | disposition hospice, inpatient (51) | DRG 698 ==
LOC: ED 16:27 → SUATTDRO 19:26 → 2S 19:26 → 4W 04-06 17:27

== ENCOUNTER 2019-05-06 19:11 | Inpatient (IN) ==
[2019-05-06] MEDS ORDERED: SODIUM CHLORIDE 0.9% 1000ML 1,000 ML IV SCH (19:45)
--- NOTE | 2019-05-06 20:18 | CT Scan Report ---
CT head/brain wo con CT DOSE: 638.56 mGycm HISTORY: Mental status change. Confusion. AMS TECHNIQUE: Multiaxial CT images of the head were performed without the use of intravenous contrast. A dose lowering technique was utilized adhering to the principles of ALARA. Comparison: 04/30/2019 Findings: The paranasal sinuses and mastoid air cells are clear. The calvarium and skull base are int act. The ventricles and sulci are within normal limits. There is no mass, hematoma, midline shift, or acute infarct. Impression: No acute intracranial abnormality. Age-related atrophy and chronic small vessel change. ACT 112: Negative or not required by law. The above report was generated using voice recognition software. It may contain grammatical, syntax or spelling errors. Electronically signed by: Amador Mock M.D. 05/06/2019 8:17 PM
--- NOTE | 2019-05-06 20:29 | XRay Report ---
XR chest 1V portable CLINICAL HISTORY: AMS mental status change COMPARISON STUDY: 04/30/2019 FINDINGS: Findings of a thoracolumbar laminectomy and fusion as well as permanent bipolar cardiac pac emaker are again noted. There are emphysematous changes throughout both hemithoraces. There is interval left basilar atelectasis. IMPRESSION: Chronic and emphysematous change. Focal atelectasis left base. ACT 112: Negative or not required by law. The above report was generated using voice recognition software. It may contain grammatical, syntax or spelling errors. Electronically signed by: Amador Mock M.D. 05/06/2019 8:28 PM
[2019-05-06 21:04] LABS: Basophils # (auto) 0.05 K/uL (0-0.2); Basophils % (auto) 0.6 %; Eosinophils # (auto) 0.94 K/uL (0-0.5); Eosinophils % (auto) 10.4 %; Hematocrit (blood only) 42.1 % (42-52); Hemoglobin 14.2 g/dL (14.0-18.0); Immature Granulocytes # (auto) 0.03 K/uL (0.00-0.02); Immature Granulocytes % (auto) 0.3 %; Lymphocytes # (auto) 1.42 K/uL (1.2-3.4); Lymphocytes % (auto) 15.7 %; Mean Corpuscular Hemoglobin 30.7 pg (25-34); Mean Corpuscular Hgb Conc 33.7 g/dL (32-36); Mean Corpuscular Volume 91.1 fL (80-100); Monocytes # (auto) 0.95 K/uL (0.11-0.59); Monocytes % (auto) 10.5 %; Neutrophils # (auto) 5.64 K/uL (1.4-6.5); Neutrophils % (auto) 62.5 %; Platelet Count 218 K/uL (130-400); RDW Coefficient of Variation 13.7 % (11.5-14.5); RDW Standard Deviation 45.4 fL (36.4-46.3); Red Blood Count 4.62 M/uL (4.7-6.1); White Blood Count 9.03 K/uL (4.8-10.8)
[2019-05-06 21:16] LABS: Albumin Globulin Ratio 0.6 (0.9-2); Albumin Level 3.3 gm/dl (3.4-5.0); BUN Creatinine Ratio 11.9 (10-20); Bilirubin,Total 0.4 mg/dl (0.2-1); Calcium 9.6 mg/dl (8.5-10.1); Creatinine Clr Calc Pharmacy 50.9 ml/min; Est GFR (Non-African American) 77.6; Globulin 5.1 gm/dl (2.5-4.0); Total Protein 8.4 gm/dl (6.4-8.2)
[2019-05-06 21:29] LABS: Appearance Urine Turbid (Clear); Bacteria Urine Automated 2+ (Negative); Bilirubin Urine Negative (Negative); Blood Urine 3+ (Negative); Color Urine Yellow; Epithelial Cell Urine Auto 20-30 /lpf (0-5); Glucose Urine UA Negative (Negative); Ketones Urine Negative (Negative); Leukocyte Esterase Urine 3+ (Negative); Nitrite Urine Positive (Negative); Protein Urine Trace (Negative); RBC Urine Automated 0-4 /hpf (0-4); Specific Gravity Urine 1.007 (1.000-1.030); Urobilinogen Urine Negative (Negative); WBC Urine Automated >30 /hpf (0-5); pH Urine 6.5 (4.5-7.5)
[2019-05-06] MEDS ORDERED: PIPERACILLIN/TAZOBACTAM 4.5 GM/120 ML BAG IV ONE (22:29)
[2019-05-06] MEDS ORDERED: PIPERACILL/TAZOBAC CONSULT ACTIVE PRN (22:29)
[2019-05-07] MEDS ORDERED: ACETAMINOPHEN 325 MG TAB PO PRN (00:14)
[2019-05-07] MEDS ORDERED: ONDANSETRON INJ 2 MG/ML 2 ML VIAL IV PRN (00:14)
[2019-05-07] MEDS ORDERED: MAGNESIUM HYDROXIDE SUSP 30 ML UDC PO PRN (00:14)
[2019-05-07] MEDS ORDERED: guaiFENesin 600 MG TABCR PO PRN (00:14)
[2019-05-07] MEDS ORDERED: ALBUTEROL 0.083% NEBU SOLN 3 ML VIAL INH PRN (00:14)
[2019-05-07] MEDS ORDERED: FLUTICASONE PROPIONATE NA SPR 16 GM BTL NAE PRN (00:14)
[2019-05-07] MEDS ORDERED: POLYETHYLENE (MIRALAX) 17 GM PACK PO PRN (00:14)
[2019-05-07] MEDS ORDERED: ALUMINUM/MAGNESIUM SUSP 30 ML UDC PO PRN (00:14)
--- NOTE | 2019-05-07 00:34 | Emergency Department Note ---
Entered by Riya Mora acting as a scribe for Caroline Carnes MD History of Present Illness General Chief complaint: Altered Mental Status Stated complaint: AMS Source: patient History of Present Illness Onset (ago): hour(s) (several) Location: head Pain Consistency: + other (persistent ) Quality: + other (confusion) Associated symptoms: + other (positive trouble staying awake; positive forgot how to eat and drink); no fever/chills The patient is a 88 year old male who presents to the Emergency Room with complaints of persistent confusion that began this morning, several hours prior to arrival, per the patient's . The patient's states that today the patient was having trouble staying awake while they were giving him breakfast. Per the patient's , the patient then became hungry and could not remember how to eat and drink. The patient's states that the patient has a chronic indwelling Gupta catheter and a history of UTIs. The patient's denies fevers today. 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 Per the patient's , the patient has an ostomy which has had good output. Home Medications Home Medications Medication Instructions Recorded Confirmed Type Lactobacillus acidoph-L.bulgar 1 tab PO QAM 04/30/19 05/06/19 History [Lactinex] albuterol sulfate 1 - 2 puff INHALATION Q6H PRN 04/30/19 05/06/19 History albuterol sulfate 2.5 mg INHALATION Q6H PRN 04/30/19 05/06/19 History atorvastatin 40 mg PO QAM 04/30/19 05/06/19 History budesonide-formoterol [Symbicort] 1 puff INHALATION BID PRN 04/30/19 05/06/19 History cholecalciferol (vitamin D3) 1,000 unit PO QAM 04/30/19 05/06/19 History [Vitamin D3] coenzyme Q10 [CoQ-10] 100 mg PO HS 04/30/19 05/06/19 History digoxin 125 mcg PO QAM 04/30/19 05/06/19 History escitalopram oxalate 10 mg PO QAM 04/30/19 05/06/19 History krill oil 500 mg PO QAM 04/30/19 05/06/19 History nystatin 1 applic TOPICAL TID 04/30/19 05/06/19 History omeprazole 40 mg PO QAM 04/30/19 05/06/19 History oxybutynin chloride 10 mg PO QAM 04/30/19 05/06/19 History rivaroxaban [Xarelto] 20 mg PO HS 04/30/19 05/06/19 History fluticasone propionate [Flonase 2 spray INTRANASAL DAILY PRN 05/06/19 05/06/19 History Allergy Relief] guaifenesin [Mucinex] 600 mg PO Q12H PRN 05/06/19 05/06/19 History multivitamin 1 tab PO HS 05/06/19 05/06/19 History Allergies Allergy/AdvReac Type Severity Reaction Status Date / Time banana Allergy Mild Abdominal Verified 04/30/19 18:13 Pain nitrofurantoin Allergy Unknown Unknown Verified 04/30/19 18:13 Sulfa (Sulfonamide Allergy Unknown Unknown Verified 04/30/19 18:13 Antibiotics) NSAIDS (Non-Steroidal AdvReac Severe internal Verified 04/30/19 18:13 Anti-Inflamma bleeding Food Allergy Severe ANAPHYLAXIS Uncoded 04/30/19 18:13 WITH RADISHES/ DIFFICULTY BREATHING HORSERADISH Past Med/Surg History Medical History Acrochordon Acute UTI (Inactive) Allergic rhinitis Bacteremia Blister of foot Bloating Breast lump C. 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) COPD (chronic obstructive pulmonary disease) (Chronic) Coronary artery disease, occlusive (Chronic) Decubitus ulcer of sacral region Diarrhea Elevated prostate specific antigen (PSA) Esophageal reflux (Acute) Family history of cancer (10/26/12) Folliculitis Herpes zoster Hiatal hernia (Acute) History of pseudomembranous enterocolitis History of skin pruritus Hospital discharge follow-up Hx pulmonary embolism (Chronic) Hyperlipidemia (Acute) Hyponatremia Hypotension ICD (implantable cardioverter-defibrillator) in place (Acute) Incontinence Influenza Influenza A Ischemic cardiomyopathy (Chronic) Left ankle injury Muscle spasm Myocardial infarction Neoplasm of uncertain behavior of skin Neurogenic bladder (Chronic) Pacemaker (Chronic) Paraplegia (Resolved 05/20/12) Paroxysmal atrial fibrillation (Chronic) Personal history of urinary (tract) infection Pneumonia Post-traumatic paraplegia (Chronic) Pulmonary hypertension (Acute) Pyelonephritis Rash Reactive depression (situational) (Acute) Seborrheic keratosis Seborrheic keratosis, inflamed Sensorineural hearing loss (SNHL) of both ears (Acute) Sepsis Sepsis Sepsis due to Pseudomonas aeruginosa Shortness of breath SIRS (systemic inflammatory response syndrome) Systemic inflammatory response syndrome (SIRS) due to infectious process without acute organ dysfunction Urinary retention (Resolved) Vasovagal syncope Viral warts Wound, open Surgical History History of ankle surgery History of back surgery History of blood transfusion two within the last 10 years History of ileostomy History of partial colectomy Family History Other No pertinent family history Social History Preferred Language: Danish Communication Ability: Impaired Visual Impairment: No Limitations Hearing Ability: Use of Hearing Aid Centrifugal Wax Molder Required: No Beliefs That Will Affect Care: None marital status: Current Living Situation: Spouse current occupational status: retired Feels Safe at Home: Yes Smoking Status: Never smoker Second Hand Exposure: No ; Hx Alcohol Use: No Hx Substance Use: No Childhood Exposure to Second-Hand Smoke: No Diet Comment: regular Dental Care, Regularly: No Physical Activity Frequency: Does not Exercise Physical Activity Frequency Comment: due to physical condition Seatbelt Use: always Sunscreen Use: No Review of Systems See HPI for pertinent positives & negatives. and A total of 10 systems reviewed and were otherwise negative Physical Exam Vital Signs Vital Signs - 24 hr 05/06/19 18:57 05/06/19 19:18 05/06/19 19:21 Temperature Temperature Source Pulse Rate 73 72 Pulse Rate [Apical] Pulse Rate from SpO2 Sensor 72 73 Pulse Rhythm Pulse Strength Respiratory Rate 20 20 Respiratory Effort / Characteristics Respiratory Depth Respiratory Pattern Blood Pressure 140/69 Blood Pressure [Right Arm] Blood Pressure Mean 81 Blood Pressure Mean [Right Arm] Blood Pressure Position Pulse Oximetry 96 91 91 Oxygen Delivery Method Nasal Cannula Oxygen Flow Rate 2 Sepsis Recent Fever Within 48 Hours Sepsis New/Unexplained Change in Mental Status Sepsis Action Taken by Nursing 05/06/19 19:34 05/06/19 20:00 05/06/19 21:00 Temperature 37.0 C Temperature Source Oral Pulse Rate 86 63 Pulse Rate [Apical] Pulse Rate from SpO2 Sensor 63 68 Pulse Rhythm Regular Pulse Strength Normal Respiratory Rate 20 20 Respiratory Effort / Characteristics Non-Labored Spontaneous Respiratory Depth Normal Respiratory Pattern Regular Blood Pressure 140/69 142/77 H 149/74 H Blood Pressure [Right Arm] Blood Pressure Mean 92 98 99 Blood Pressure Mean [Right Arm] Blood Pressure Position Sitting Pulse Oximetry 99 99 100 Oxygen Delivery Method Nasal Cannula Oxygen Flow Rate 2 Sepsis Recent Fever Within 48 Hours No Sepsis New/Unexplained Change in Mental Status No Sepsis Action Taken by Nursing No Action Required 05/06/19 21:21 05/06/19 21:42 05/06/19 22:00 Temperature Temperature Source Pulse Rate 76 71 Pulse Rate [Apical] 78 Pulse Rate from SpO2 Sensor 70 70 Pulse Rhythm Pulse Strength Respiratory Rate 14 33 H 25 H Respiratory Effort / Characteristics Respiratory Depth Respiratory Pattern Blood Pressure 149/74 H Blood Pressure [Right Arm] 140/69 Blood Pressure Mean 111 Blood Pressure Mean [Right Arm] 92 Blood Pressure Position Pulse Oximetry 99 98 Oxygen Delivery Method Oxygen Flow Rate Sepsis Recent Fever Within 48 Hours Sepsis New/Unexplained Change in Mental Status Sepsis Action Taken by Nursing 05/06/19 23:00 Temperature Temperature Source Pulse Rate 64 Pulse Rate [Apical] Pulse Rate from SpO2 Sensor 65 Pulse Rhythm Pulse Strength Respiratory Rate 19 Respiratory Effort / Characteristics Respiratory Depth Respiratory Pattern Blood Pressure 149/74 H Blood Pressure [Right Arm] Blood Pressure Mean 99 Blood Pressure Mean [Right Arm] Blood Pressure Position Pulse Oximetry 100 Oxygen Delivery Method Oxygen Flow Rate Sepsis Recent Fever Within 48 Hours Sepsis New/Unexplained Change in Mental Status Sepsis Action Taken by Nursing Vital signs reviewed. General: Chronically ill-appearing 88 y/o male, in no significant distress. Somnolent but arousable. HEENT: No scleral icterus, PERRLA, neck supple. Atraumatic. Cardiovascular: Regular rate and rhythm, no extra sounds. Pulmonary: Clear to auscultation bilaterally, normal work of breathing. Abdomen: Soft, nontender, nondistended, positive bowel sounds. Musculoskeletal: Atraumatic, no peripheral edema. Neurologic: Patient awake and answers some questions appropriately. Confused to year. Atrophy to the bilateral lower extremities. Paraplegic. Skin: Warm, dry, no rash Course Course 193: Past medical records reviewed. The patient was evaluated in room A9A. A complete history and physical exam was performed. 2313: I reviewed the patient's case with Dr. Lamas, [facility] Hospitalist. He will evaluate the patient for further management. 2319: Upon reevaluation, the patient is resting comfortably. I discussed laboratory and radiographic results with him. He verbalized agreement of the treatment plan. The patient will be evaluated for further management and care. Administered Medications Atorvastatin Calcium (Lipitor) 40 mg PO [facility] Stop: 06/06/19 08:59 Last Admin: 05/09/19 08:52 Dose: 40 mg Documented by: [id number] Admin: 05/08/19 09:20 Dose: 40 mg Documented by: [id number] Admin: 05/07/19 08:38 Dose: 40 mg Documented by: [id number] Digoxin (Lanoxin) 0.125 mg PO DAILY@1600 [facility] Stop: 06/06/19 15:59 Last Admin: 05/08/19 16:56 Dose: 0.125 mg Documented by: [id number] Admin: 05/07/19 16:08 Dose: 0.125 mg Documented by: [id number] Escitalopram Oxalate (Lexapro Tab) 10 mg PO [facility] Stop: 06/06/19 08:59 Last Admin: 05/09/19 08:52 Dose: 10 mg Documented by: [id number] Admin: 05/08/19 09:20 Dose: 10 mg Documented by: [id number] Admin: 05/07/19 08:38 Dose: 10 mg Documented by: [id number] Piperacillin Sod/Tazobactam (Sod 3.375 gm/ Dextrose) 115 mls @ 28.75 mls/hr IV Q8H [facility]; Protocol Stop: 05/17/19 03:59 Last Infusion: 05/09/19 07:38 Dose: 0 mls/hr Documented by: [id number] Admin: 05/09/19 03:36 Dose: 28.8 mls/hr Documented by: [id number] Infusion: 05/09/19 00:31 Dose: 0 mls/hr Documented by: [id number] Admin: 05/08/19 20:31 Dose: 28.8 mls/hr Documented by: [id number] Infusion: 05/08/19 15:31 Dose: 0 mls/hr Documented by: [id number] Admin: 05/08/19 11:31 Dose: 28.8 mls/hr Documented by: [id number] Infusion: 05/08/19 08:13 Dose: 0 mls/hr Documented by: [id number] Admin: 05/08/19 03:56 Dose: 28.8 mls/hr Documented by: [id number] Infusion: 05/07/19 23:54 Dose: 0 mls/hr Documented by: [id number] Admin: 05/07/19 20:01 Dose: 28.8 mls/hr Documented by: [id number] Infusion: 05/07/19 16:48 Dose: 0 mls/hr Documented by: [id number] Admin: 05/07/19 12:45 Dose: 28.8 mls/hr Documented by: [id number] Infusion: 05/07/19 08:04 Dose: 0 mls/hr Documented by: [id number] Admin: 05/07/19 04:04 Dose: 28.8 mls/hr Documented by: [id number] Lactobacillus Acidophilus (Floranex) 4 tab PO QAM [facility] Stop: 06/06/19 08:59 Last Admin: 05/09/19 08:52 Dose: 4 tab Documented by: [id number] Admin: 05/08/19 09:20 Dose: 4 tab Documented by: [id number] Admin: 05/07/19 08:37 Dose: 4 tab Documented by: [id number] Multivitamins (Multivitamin Tab) 1 tab PO HS [facility] Stop: 06/06/19 20:59 Last Admin: 05/08/19 20:31 Dose: 1 tab Documented by: [id number] Admin: 05/07/19 20:09 Dose: 1 tab Documented by: [id number] Nystatin (Mycostatin) 1 appln EXT TID [facility] Stop: 06/06/19 08:59 Last Admin: 05/09/19 08:52 Dose: 1 appln Documented by: [id number] Admin: 05/08/19 20:32 Dose: 1 appln Documented by: [id number] Admin: 05/08/19 13:22 Dose: 1 appln Documented by: [id number] Admin: 05/08/19 09:21 Dose: 1 appln Documented by: [id number] Admin: 05/07/19 20:08 Dose: 1 appln Documented by: [id number] Admin: 05/07/19 13:04 Dose: 1 appln Documented by: [id number] Admin: 05/07/19 08:39 Dose: 1 appln Documented by: [id number] Oxybutynin Chloride (Ditropan Xl) 10 mg PO [facility] Stop: 06/06/19 08:59 Last Admin: 05/09/19 08:52 Dose: 10 mg Documented by: [id number] Admin: 05/08/19 09:20 Dose: 10 mg Documented by: [id number] Admin: 05/07/19 08:38 Dose: 10 mg Documented by: [id number] Pantoprazole Sodium (Protonix) 40 mg PO [facility] Stop: 06/06/19 08:59 Last Admin: 05/09/19 08:52 Dose: 40 mg Documented by: [id number] Admin: 05/08/19 09:20 Dose: 40 mg Documented by: [id number] Admin: 05/07/19 08:38 Dose: 40 mg Documented by: [id number] Rivaroxaban (Xarelto) 20 mg PO [facility] Stop: 06/06/19 20:59 Last Admin: 05/08/19 20:32 Dose: 20 mg Documented by: [id number] Admin: 05/07/19 20:08 Dose: 20 mg Documented by: [id number] Vitamin D (Vitamin D3) 1,000 units PO [facility] Stop: 06/06/19 08:59 Last Admin: 05/09/19 08:52 Dose: 1,000 units Documented by: [id number] Admin: 05/08/19 09:20 Dose: 1,000 units Documented by: [id number] Admin: 05/07/19 08:39 Dose: 1,000 units Documented by: [id number] Discontinued Medications Sodium Chloride (Nss 1000ml) 1,000 mls @ 125 mls/hr IV .Q8H [facility] Stop: 05/07/19 03:44 Last Infusion: 05/07/19 02:58 Dose: 0 mls/hr Documented by: [id number] Admin: 05/06/19 19:45 Dose: 125 mls/hr Documented by: [id number] Piperacillin Sod/Tazobactam Sod (Zosyn) 4.5 gm in 120 mls @ 240 mls/hr IV NOW ONE Stop: 05/06/19 22:58 Last Infusion: 05/07/19 00:17 Dose: 240 mls/hr Documented by: [id number] Admin: 05/06/19 23:22 Dose: 240 mls/hr Documented by: [id number] Potassium Chloride/Sodium Chloride (Normal Saline W/20 Meq Kcl) 20 meq in 1,000 mls @ 50 mls/hr IV .Q20H [facility] Stop: 06/06/19 00:13 Last Infusion: 05/08/19 19:11 Dose: 0 mls/hr Documented by: [id number] Admin: 05/08/19 00:45 Dose: 50 mls/hr Documented by: [id number] Infusion: 05/08/19 00:45 Dose: 0 mls/hr Documented by: [id number] Infusion: 05/07/19 16:20 Dose: 50 mls/hr Documented by: [id number] Admin: 05/07/19 10:28 Dose: 100 mls/hr Documented by: [id number] Infusion: 05/07/19 10:28 Dose: 100 mls/hr Documented by: [id number] Admin: 05/07/19 00:59 Dose: 100 mls/hr Documented by: [id number] Medical Decision Making Differential Diagnosis Differential diagnoses includes but is not limited to toxic, metabolic, infectious, traumatic, cardiac, neurologic, hematologic, psychiatric and inflammatory etiologies. Medical Records Attestation: I reviewed the patient's medical records. Home Medications Current Medication List: was personally reviewed by me Laboratory Data Attestation: I reviewed the patient's lab results. Result diagrams: 05/08/19 19:49 05/08/19 19:49 Lab Results 05/06/19 05/06/19 05/06/19 Range/Units 20:30 20:30 20:43 WBC 9.03 (4.8-10.8) K/uL RBC 4.62 L (4.7-6.1) M/uL Hgb 14.2 (14.0-18.0) g/dL Hct 42.1 (42-52) % MCV 91.1 (80-100) fL MCH 30.7 (25-34) pg MCHC 33.7 (32-36) g/dL RDW Std Deviation 45.4 (36.4-46.3) fL RDW Coeff of Evelyne 13.7 (11.5-14.5) % Plt Count 218 (130-400) K/uL MPV 10.0 (7.4-10.4) fL Immature Gran % (Auto) 0.3 % Neut % (Auto) 62.5 % Lymph % (Auto) 15.7 % [place] % (Auto) 10.5 % Eos % (Auto) 10.4 % Baso % (Auto) 0.6 % Immature Gran # (Auto) 0.03 H (0.00-0.02) K/uL Neut # (Auto) 5.64 (1.4-6.5) K/uL Lymph # (Auto) 1.42 (1.2-3.4) K/uL [place] # (Auto) 0.95 H (0.11-0.59) K/uL Eos # (Auto) 0.94 H (0-0.5) K/uL Baso # (Auto) 0.05 (0-0.2) K/uL Sodium 134 L (136-145) mmol/L Potassium 4.0 (3.5-5.1) mmol/L Chloride 97 L (98-107) mmol/L Carbon Dioxide 35 H (21-32) mmol/L Anion Gap 3.0 (3-11) BUN 10 (7-18) mg/dl Creatinine 0.84 (0.6-1.4) mg/dl Est Cr Clr Drug Dosing 50.9 ml/min Est GFR ( Amer) 90.0 Est GFR (Non-Af Amer) 77.6 BUN/Creatinine Ratio 11.9 (10-20) Glucose 110 H (70-99) mg/dl Lactate 1.6 (0.4-2.0) mmol/L Calcium 9.6 (8.5-10.1) mg/dl Total Bilirubin 0.4 (0.2-1) mg/dl AST 27 (15-37) U/L ALT 26 (12-78) U/L Alkaline Phosphatase 89 (45-117) U/L Total Protein 8.4 H (6.4-8.2) gm/dl Albumin 3.3 L (3.4-5.0) gm/dl Globulin 5.1 H (2.5-4.0) gm/dl Albumin/Globulin Ratio 0.6 L (0.9-2) Specimen Hemolysis Urine Color Urine Appearance (Clear) Urine pH (4.5-7.5) Ur Specific [place] (1.000-1.030) Urine Protein (Negative) Urine Glucose (UA) (Negative) Urine Ketones (Negative) Urine Blood (Negative) Urine Nitrite (Negative) Urine Bilirubin (Negative) Urine Urobilinogen (Negative) Ur Leukocyte Esterase (Negative) Urine WBC (Auto) (0-5) /hpf Urine RBC (Auto) (0-4) /hpf U Hyaline Cast (Auto) (0-5) /lpf U Epithel Cells (Auto) (0-5) /lpf Urine Bacteria (Auto) (Negative) Urine Yeast 05/06/19 Range/Units 21:20 WBC (4.8-10.8) K/uL RBC (4.7-6.1) M/uL Hgb (14.0-18.0) g/dL Hct (42-52) % MCV (80-100) fL MCH (25-34) pg MCHC (32-36) g/dL RDW Std Deviation (36.4-46.3) fL RDW Coeff of Evelyne (11.5-14.5) % Plt Count (130-400) K/uL MPV (7.4-10.4) fL Immature Gran % (Auto) % Neut % (Auto) % Lymph % (Auto) % [place] % (Auto) % Eos % (Auto) % Baso % (Auto) % Immature Gran # (Auto) (0.00-0.02) K/uL Neut # (Auto) (1.4-6.5) K/uL Lymph # (Auto) (1.2-3.4) K/uL [place] # (Auto) (0.11-0.59) K/uL Eos # (Auto) (0-0.5) K/uL Baso # (Auto) (0-0.2) K/uL Sodium (136-145) mmol/L Potassium (3.5-5.1) mmol/L Chloride (98-107) mmol/L Carbon Dioxide (21-32) mmol/L Anion Gap (3-11) BUN (7-18) mg/dl Creatinine (0.6-1.4) mg/dl Est Cr Clr Drug Dosing ml/min Est GFR ( Amer) Est GFR (Non-Af Amer) BUN/Creatinine Ratio (10-20) Glucose (70-99) mg/dl Lactate (0.4-2.0) mmol/L Calcium (8.5-10.1) mg/dl Total Bilirubin (0.2-1) mg/dl AST (15-37) U/L ALT (12-78) U/L Alkaline Phosphatase (45-117) U/L Total Protein (6.4-8.2) gm/dl Albumin (3.4-5.0) gm/dl Globulin (2.5-4.0) gm/dl Albumin/Globulin Ratio (0.9-2) Specimen Hemolysis Urine Color Yellow Urine Appearance Turbid A (Clear) Urine pH 6.5 (4.5-7.5) Ur Specific [place] 1.007 (1.000-1.030) Urine Protein Trace H (Negative) Urine Glucose (UA) Negative (Negative) Urine Ketones Negative (Negative) Urine Blood 3+ H (Negative) Urine Nitrite Positive A (Negative) Urine Bilirubin Negative (Negative) Urine Urobilinogen Negative (Negative) Ur Leukocyte Esterase 3+ H (Negative) Urine WBC (Auto) >30 H (0-5) /hpf Urine RBC (Auto) 0-4 (0-4) /hpf U Hyaline Cast (Auto) 1-5 (0-5) /lpf U Epithel Cells (Auto) 20-30 H (0-5) /lpf Urine Bacteria (Auto) 2+ H (Negative) Urine Yeast Not Reportable Imaging Data Radiologist's Impression: Radiology results as stated below per my review and the radiologist's interpretation: XR chest 1V portable CLINICAL HISTORY: AMS mental status change COMPARISON STUDY: 04/30/2019 FINDINGS: Findings of a thoracolumbar laminectomy and fusion as well as permanent bipolar cardiac pacemaker are again noted. There are emphysematous changes throughout both hemithoraces. There is interval left basilar atelectasis. IMPRESSION: Chronic and emphysematous change. Focal atelectasis left base. ACT 112: Negative or not required by law. The above report was generated using voice recognition software. It may contain grammatical, syntax or spelling errors. Electronically signed by: Amador Mock M.D. 05/06/2019 8:[address] head/brain wo con CT DOSE: 638.56 mGycm HISTORY: Mental status change. Confusion. AMS TECHNIQUE: Multiaxial CT images of the head were performed without the use of intravenous contrast. A dose lowering technique was utilized adhering to the principles of ALARA. Comparison: 04/30/2019 Findings: The paranasal sinuses and mastoid air cells are clear. The calvarium and skull base are intact. The ventricles and sulci are within normal limits. There is no mass, hematoma, midline shift, or acute infarct. Impression: No acute intracranial abnormality. Age-related atrophy and chronic small vessel change. ACT 112: Negative or not required by law. The above report was generated using voice recognition software. It may contain grammatical, syntax or spelling errors. Electronically signed by: Amador Mock M.D. 05/06/2019 8:17 PM ECG Data Additional Comments: An order for cardiac monitoring was placed and the patient was found to be in a sinus rhythm at 73 bpm. Blood Pressure Blood Pressure Findings: Elevated blood pressure Blood Pressure Disposition: further management by hospitalist MDM Narrative This patient was evaluated and appeared to be in no significant distress. IV access was obtained and laboratory work was drawn. The patient was placed on the candy packer and found to be in a sinus rhythm at 73 bpm. Laboratory work was obtained and reveals a normal WBC at 9. Hemoglobin is stable at 14.2. Patient's lactate is 1.6 with a creatinine of 0.84. Urinalysis is concerning for infection. Previous culture results were reviewed. Patient grew Pseudomonas several days ago. Blood cultures were obtained and the patient was given Zosyn 4.5 g IV. The Gupta catheter was changed. IV fluids were continued. Head CT was performed and is negative for acute pathology. Chest x- ray is read as a focal atelectasis of the left base without evidence of infection. Patient and family were updated to the findings and plan for hospitalization. The hospitalist service was contacted for further management. Impression & Plan Acute alteration in mental status, Acute UTI, Pseudomonas infection, Chronic indwelling Gupta catheter Discharge Plan Visit Data *Final* Discharge Date/Time: 05/06/19 23:46 Chief Complaint: Altered Mental Status Stated Complaint: AMS ED Provider: Caroline Carnes Discharge Problem: Acute alteration in mental status, Acute UTI, Pseudomonas infection, Chronic indwelling Gupta catheter Patient Disposition: Admitted As Inpatient Discharge Instructions Interventions: ED Discharge Assessment Last Done: 05/06/19 23:46 The scribe's documentation has been prepared under my direction and personally reviewed by me in its entirety. I confirm that the note above accurately reflects all work, treatment, procedures, and medical decision making performed by me.
[2019-05-07] MEDS: NSS + 20MEQ KCL 20 MEQ/1,000 ML BAG IV SCH ×2 (00:59→10:28)
[2019-05-07] MEDS ORDERED: FLUTICASONE/VILANTEROL 100/25MCG 14 PUFFS/INHALER INH PRN (01:11)
[2019-05-07] MEDS: PIPERACILLIN/TAZOBACTAM 3.375 GM in DEXTROSE 5% 100 ML IV SCH ×3 (04:04→20:01)
--- NOTE | 2019-05-07 05:31 | History & Physical Report ---
Date of Service May 06, 2019 Assessment & Plan (1) UTI (urinary tract infection): Recurrent urinary tract infection/history of recurrent Pseudomonas infection/chronic indwelling Gupta catheter- Follow urine culture and sensitivity. NSS + KCl 20 mEq at 100 mils per hour. Zosyn 4.5 g IV every 8 hours. Present on Admission?: Yes (2) Indwelling Gupta catheter present: See above Present on Admission?: Yes (3) Pseudomonas infection: See above Present on Admission?: Yes (4) Paroxysmal A-fib: Continue Xarelto, digoxin Present on Admission?: Yes (5) Depression: Continue usual medications Present on Admission?: Yes (6) Esophageal reflux: Continue pantoprazole Present on Admission?: Yes (7) Post-traumatic paraplegia: Continue usual supportive medications Present on Admission?: Yes History of Present Illness Chief Complaint: The patient was brought to the emergency department by family, due to concerns regarding confusion and decreased oral intake. Primary Care Provider: Iam Yang MD The patient is a 88-year-old male with a past medical history including chronic indwelling Gupta catheter, history of Pseudomonas infections, paroxysmal atrial fibrillation, hyperlipidemia, depression, pulmonary hypertension, neurogenic bladder, ischemic cardiomyopathy, ICD in place, GERD, CAD and posttraumatic paraplegia. In the emergency department, he was started on normal saline rehydration, Zosyn IV antibiotic, and referred for evaluation for presumptive Pseudomonas UTI. His Gupta catheter was also changed out at that time as well. Allergies Allergy/AdvReac Type Severity Reaction Status Date / Time banana Allergy Mild Abdominal Verified 04/30/19 18:13 Pain nitrofurantoin Allergy Unknown Unknown Verified 04/30/19 18:13 Sulfa (Sulfonamide Allergy Unknown Unknown Verified 04/30/19 18:13 Antibiotics) NSAIDS (Non-Steroidal AdvReac Severe internal Verified 04/30/19 18:13 Anti-Inflamma bleeding Food Allergy Severe ANAPHYLAXIS Uncoded 04/30/19 18:13 WITH RADISHES/ DIFFICULTY BREATHING HORSERADISH Home Medications Home Medications Medication Instructions Recorded Confirmed Type Lactobacillus acidoph-L.bulgar 1 tab PO QAM 04/30/19 05/06/19 History [Lactinex] albuterol sulfate 1 - 2 puff INHALATION Q6H PRN 04/30/19 05/06/19 History albuterol sulfate 2.5 mg INHALATION Q6H PRN 04/30/19 05/06/19 History atorvastatin 40 mg PO QAM 04/30/19 05/06/19 History budesonide-formoterol [Symbicort] 1 puff INHALATION BID PRN 04/30/19 05/06/19 History cholecalciferol (vitamin D3) 1,000 unit PO QAM 04/30/19 05/06/19 History [Vitamin D3] coenzyme Q10 [CoQ-10] 100 mg PO HS 04/30/19 05/06/19 History digoxin 125 mcg PO QAM 04/30/19 05/06/19 History escitalopram oxalate 10 mg PO QAM 04/30/19 05/06/19 History krill oil 500 mg PO QAM 04/30/19 05/06/19 History nystatin 1 applic TOPICAL TID 04/30/19 05/06/19 History omeprazole 40 mg PO QAM 04/30/19 05/06/19 History oxybutynin chloride 10 mg PO QAM 04/30/19 05/06/19 History rivaroxaban [Xarelto] 20 mg PO HS 04/30/19 05/06/19 History fluticasone propionate [Flonase 2 spray INTRANASAL DAILY PRN 05/06/19 05/06/19 History Allergy Relief] guaifenesin [Mucinex] 600 mg PO Q12H PRN 05/06/19 05/06/19 History multivitamin 1 tab PO HS 05/06/19 05/06/19 History Past Med/Surg History Medical History Acrochordon Acute UTI (Inactive) Allergic rhinitis Bacteremia Blister of foot Bloating Breast lump C. 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) COPD (chronic obstructive pulmonary disease) (Chronic) Coronary artery disease, occlusive (Chronic) Decubitus ulcer of sacral region Diarrhea Elevated prostate specific antigen (PSA) Esophageal reflux (Acute) Family history of cancer (10/26/12) Folliculitis Herpes zoster Hiatal hernia (Acute) History of pseudomembranous enterocolitis History of skin pruritus Hospital discharge follow-up Hx pulmonary embolism (Chronic) Hyperlipidemia (Acute) Hyponatremia Hypotension ICD (implantable cardioverter-defibrillator) in place (Acute) Incontinence Influenza Influenza A Ischemic cardiomyopathy (Chronic) Left ankle injury Muscle spasm Myocardial infarction Neoplasm of uncertain behavior of skin Neurogenic bladder (Chronic) Pacemaker (Chronic) Paraplegia (Resolved 05/20/12) Paroxysmal atrial fibrillation (Chronic) Personal history of urinary (tract) infection Pneumonia Post-traumatic paraplegia (Chronic) Pulmonary hypertension (Acute) Pyelonephritis Rash Reactive depression (situational) (Acute) Seborrheic keratosis Seborrheic keratosis, inflamed Sensorineural hearing loss (SNHL) of both ears (Acute) Sepsis Sepsis Sepsis due to Pseudomonas aeruginosa Shortness of breath SIRS (systemic inflammatory response syndrome) Systemic inflammatory response syndrome (SIRS) due to infectious process without acute organ dysfunction Urinary retention (Resolved) Vasovagal syncope Viral warts Wound, open Surgical History History of ankle surgery History of back surgery History of blood transfusion two within the last 10 years History of ileostomy History of partial colectomy Family History Other No pertinent family history Social History Preferred Language: Tunisian Communication Ability: Effective Visual Impairment: No Limitations Hearing Ability: Use of Hearing Aid Drug Room Clerk Required: No Beliefs That Will Affect Care: None marital status: Current Living Situation: Spouse current occupational status: retired Feels Safe at Home: Yes Smoking Status: Never smoker Second Hand Exposure: No ; Hx Alcohol Use: No Hx Substance Use: No Childhood Exposure to Second-Hand Smoke: No Other Diet Comment: regular Dental Care, Regularly: No Physical Activity Frequency: Does not Exercise Physical Activity Frequency Comment: due to physical condition Seatbelt Use: always Sunscreen Use: No Review of Systems Review of Systems: Unobtainable due to cognitive status Physical Exam Physical Exam: The patient is awake, well developed and well nourished, normocephalic and atraumatic, lying in bed and in no acute distress. HEENT--PERRL, EOMI, mucous membranes and oropharynx dry. Neck--supple. No JVD. No bruits. Thyroid normal, trachea midline, no adenopathy. Heart--normal S1 and S2. No murmurs, rubs or gallops. Lungs--clear bilaterally, no respiratory distress, no accessory muscle use. Abdomen--normal bowel sounds and soft. Nontender. Nondistended. Extremities--no cyanosis or clubbing. No edema. There are good distal pulses b/l. Dermatologic--normal skin turgor, normal color, no abnormal lymph nodes, no rash. Neurologic--cranial nerves II through XII grossly intact. Rheumatologic--paraplegia Psychiatric--normal affect. Results & Data Vital Signs (Past 12 Hours) Vital Signs Temp Pulse Pulse Resp BP BP Pulse Ox 05/06/19 23:00 64 19 149/74 H 100 05/06/19 22:00 71 25 H 98 05/06/19 21:42 76 33 H 149/74 H 99 05/06/19 21:21 78 14 140/69 05/06/19 21:00 149/74 H 100 05/06/19 20:00 63 20 142/77 H 99 05/06/19 19:34 98.6 F 86 20 140/69 99 05/06/19 19:21 72 20 91 05/06/19 19:18 73 20 140/69 91 05/06/19 18:57 96 Laboratory Results Laboratory Results WBC 9.03 K/uL (4.8-10.8) 05/06/19 20:30 RBC 4.62 M/uL (4.7-6.1) L 05/06/19 20:30 Hgb 14.2 g/dL (14.0-18.0) 05/06/19 20:30 Hct 42.1 % (42-52) 05/06/19 20:30 MCV 91.1 fL (80-100) 05/06/19 20:30 MCH 30.7 pg (25-34) 05/06/19 20:30 MCHC 33.7 g/dL (32-36) 05/06/19 20:30 RDW Std Deviation 45.4 fL (36.4-46.3) 05/06/19 20:30 RDW Coeff of Evelyne 13.7 % (11.5-14.5) 05/06/19 20:30 Plt Count 218 K/uL (130-400) 05/06/19 20:30 MPV 10.0 fL (7.4-10.4) 05/06/19 20:30 Immature Gran % (Auto) 0.3 % 05/06/19 20:30 Neut % (Auto) 62.5 % 05/06/19 20:30 Lymph % (Auto) 15.7 % 05/06/19 20:30 [place] % (Auto) 10.5 % 05/06/19 20:30 Eos % (Auto) 10.4 % 05/06/19 20:30 Baso % (Auto) 0.6 % 05/06/19 20:30 Immature Gran # (Auto) 0.03 K/uL (0.00-0.02) H 05/06/19 20:30 Neut # (Auto) 5.64 K/uL (1.4-6.5) 05/06/19 20:30 Lymph # (Auto) 1.42 K/uL (1.2-3.4) 05/06/19 20:30 [place] # (Auto) 0.95 K/uL (0.11-0.59) H 05/06/19 20:30 Eos # (Auto) 0.94 K/uL (0-0.5) H 05/06/19 20:30 Baso # (Auto) 0.05 K/uL (0-0.2) 05/06/19 20:30 Sodium 134 mmol/L (136-145) L 05/06/19 20:30 Potassium 4.0 mmol/L (3.5-5.1) 05/06/19 20:30 Chloride 97 mmol/L (98-107) L 05/06/19 20:30 Carbon Dioxide 35 mmol/L (21-32) H 05/06/19 20:30 Anion Gap 3.0 (3-11) 05/06/19 20:30 BUN 10 mg/dl (7-18) 05/06/19 20:30 Creatinine 0.84 mg/dl (0.6-1.4) 05/06/19 20:30 Est Cr Clr Drug Dosing 50.9 ml/min 05/06/19 20:30 Est GFR ( Amer) 90.0 05/06/19 20:30 Est GFR (Non-Af Amer) 77.6 05/06/19 20:30 BUN/Creatinine Ratio 11.9 (10-20) 05/06/19 20:30 Glucose 110 mg/dl (70-99) H 05/06/19 20:30 Lactate 1.6 mmol/L (0.4-2.0) 05/06/19 20:43 Calcium 9.6 mg/dl (8.5-10.1) 05/06/19 20:30 Total Bilirubin 0.4 mg/dl (0.2-1) 05/06/19 20:30 AST 27 U/L (15-37) 05/06/19 20:30 ALT 26 U/L (12-78) 05/06/19 20:30 Alkaline Phosphatase 89 U/L (45-117) 05/06/19 20:30 Total Protein 8.4 gm/dl (6.4-8.2) H 05/06/19 20:30 Albumin 3.3 gm/dl (3.4-5.0) L 05/06/19 20:30 Globulin 5.1 gm/dl (2.5-4.0) H 05/06/19 20:30 Albumin/Globulin Ratio 0.6 (0.9-2) L 05/06/19 20:30 Specimen Hemolysis 05/06/19 20:30 Urine Color Yellow 05/06/19 21:20 Urine Appearance Turbid (Clear) A 05/06/19 21: Urine pH 6.5 (4.5-7.5) 05/06/19: Ur Specific [place] 1.007 (1.000-1.030) 05/06/19 21:20 Urine Protein Trace (Negative) H 05/06/19 21:20 Urine Glucose (UA) Negative (Negative) 05/06/19: Urine Ketones Negative (Negative) 05/06/19: Urine Blood 3+ (Negative) H 05/06/19 21:20 Urine Nitrite Positive (Negative) A 05/06/19 21: Urine Bilirubin Negative (Negative) 05/06/19: Urine Urobilinogen Negative (Negative) 05/06/19: Ur Leukocyte Esterase 3+ (Negative) H 05/06/19 21:20 Urine WBC (Auto) >30 /hpf (0-5) H 05/06/19 21:20 Urine RBC (Auto) 0-4 /hpf (0-4) 05/06/19 21:20 U Hyaline Cast (Auto) 1-5 /lpf (0-5) 05/06/19 21:20 U Epithel Cells (Auto) 20-30 /lpf (0-5) H 05/06/19 21:20 Urine Bacteria (Auto) 2+ (Negative) H 05/06/19 21:20 Urine Yeast Not Reportable 05/06/19 21:20 Diagnostic Findings [facility], [place] [phone] XRay Report Patient: DAMIEN DOBBS RAdmit Date: 05/06/19 MR#: [id number]: [address] [facility] Acct ID:[id number]: Date: 1930[facility] Zip: [place] [address] Age: 88Location: ED Sex: M Room/Bed: Att Phy:Diagnosis: AMS Lisa Phy: Iam Yang MDService Date: 05/06/19 Fam Phy:Interpreting Phy: Amador Mock MD Admit Phy: Ordering Phy: Caroline Carnes M.D. cc: ~ XR chest 1V portable CLINICAL HISTORY: AMS mental status change COMPARISON STUDY: 04/30/2019 FINDINGS: Findings of a thoracolumbar laminectomy and fusion as well as permanent bipolar cardiac pacemaker are again noted. There are emphysematous changes throughout both hemithoraces. There is interval left basilar atelectasis. IMPRESSION: Chronic and emphysematous change. Focal atelectasis left base. ACT 112: Negative or not required by law. The above report was generated using voice recognition software. It may contain grammatical, syntax or spelling errors. Electronically signed by: Amador Mock M.D. 05/06/2019 8:28 PM Dictated: 05/06/192026 Transcribed: 05/06/192026 Medications Administered [facility], [place] [phone] CT Scan Report Patient: DAMIEN DOBBS RAdmit Date: 05/06/19 MR#: [id number]: [address] [facility] Acct ID:[id number]: Date: 1930[facility] Zip: [place] [address] Age: 88Location: ED Sex: M Room/Bed: Att Phy:Diagnosis: AMS Lisa Phy: Iam Yang MDService Date: 05/06/19 [facility] Phy:Interpreting Phy: Amador Mock MD Admit Phy: Ordering Phy: Caroline Carnes M.D. cc: ~ CT head/brain wo con CT DOSE: 638.56 mGycm HISTORY: Mental status change. Confusion. AMS TECHNIQUE: Multiaxial CT images of the head were performed without the use of intravenous contrast. A dose lowering technique was utilized adhering to the principles of ALARA. Comparison: 04/30/2019 Findings: The paranasal sinuses and mastoid air cells are clear. The calvarium and skull base are intact. The ventricles and sulci are within normal limits. There is no mass, hematoma, midline shift, or acute infarct. Impression: No acute intracranial abnormality. Age-related atrophy and chronic small vessel change. ACT 112: Negative or not required by law. The above report was generated using voice recognition software. It may contain grammatical, syntax or spelling errors. Electronically signed by: Amador Mock M.D. 05/06/2019 8:17 PM Dictated: 05/06/192015 Transcribed: 05/06/192015 Code Status & VTE Plan Code Status Full code VTE Prophylaxis Plan VTE Prophylaxis will be ordered: Yes PG Care Time/CCT Total # of Minutes Spent Total Time Spent with Patient: Total time spent is greater than 50% in coordination of care (as documented) at patient's floor/unit and/or counseling patient: (1) UTI (urinary tract infection) Encounter type: initial encounter Indwelling urinary catheter type: indwelling urethral catheter Urinary tract infection type: catheter-associated UTI Qualified Code(s): T83.511A - Infection and inflammatory reaction due to indwelling urethral catheter, initial encounter; N39.0 - Urinary tract inf ection, site not specified
[2019-05-07] MEDS: LACTOBACILLUS ACIDOPHILUS (FLORANEX) TAB PO SCH (08:37)
[2019-05-07] MEDS: ESCITALOPRAM OXALATE 10 MG TAB PO SCH (08:38)
[2019-05-07] MEDS: ATORVASTATIN 40 MG TAB PO SCH (08:38)
[2019-05-07] MEDS: OXYBUTYNIN CHLORIDE XL 5 MG TABCR PO SCH (08:38)
[2019-05-07] MEDS: PANTOprazole 40 MG TAB PO SCH (08:38)
[2019-05-07] MEDS: CHOLECALCIFEROL 1,000 UNITS 25 MCG TAB PO SCH (08:39)
[2019-05-07] MEDS: NYSTATIN POWDER 15GM BTL EXT SCH ×3 (08:39→20:08)
[2019-05-07] MEDS ORDERED: NON-FORMULARY MEDICATION (Krill Oil 500 MG) PO SCH (09:00)
--- NOTE | 2019-05-07 15:37 | Hospitalist Progress Note ---
Date of Service May 07, 2019 Assessment & Plan (1) UTI (urinary tract infection): Recurrent urinary tract infection/history of recurrent Pseudomonas infection/chronic indwelling Gupta catheter- Follow urine culture and sensitivity. Decrease NSS + KCl 20 mEq from 100 to 50 ml/hr Zosyn 4.5 g IV every 8 hours. (2) Indwelling Gupta catheter present: Gupta was changed out in the ED (3) Pseudomonas infection: See above (4) Paroxysmal A-fib: Continue Xarelto, digoxin Patient also has history of PE (5) Depression: Continue home medications (6) Esophageal reflux: Continue pantoprazole (7) Post-traumatic paraplegia: Will consult would care nurse for areas of skin breakdown Per nursing buttocks are erythematous with some peeling skin but no major breakdown, yeast infection appearance Continue Zosyn Dispo: patient is currently a hospice patient with [facility]. Plan is to return home on hospice. Will address code status with patient's family as he was a DNR last time he was admitted in March and is now a full code. Subjective Mr. Rockwell is very pleasant but shaky, weak and confused. He is oriented to himself only, seemed not to know what I meant when I asked him about his paraplegia. He denies any pain or discomfort but is not able to give a full ROS. Physical Exam Physical Exam: General: no distress Eyes: normal inspection, PERLL Respiratory: chest non tender, clear to auscultation, normal breath sounds, no respiratory distress, no accessory muscle use Cardiac: regular rate and rhythm, no rub or gallop, no murmur, no edema, no jvd GI/: active bowel sounds, no abd pain or tenderness, soft, non distended Extremities: Upper extremity bilateral weakness, paraplegia below waist, Neuro/Psych: alert and oriented to person, normal mood and affect, CN II - XII Skin: normal color, dry, areas of skin breakdown left thigh and per nursing buttocks are erythematous Results & Data Vital Signs (Past 12 Hours) Vital Signs Temp Pulse Resp BP BP Pulse Ox 05/07/19 15:25 36.4 C L 79 18 116/57 L 99 05/07/19 08:11 36.7 C 78 18 153/90 H 156/84 H 99 PG Care Time/CCT Total # of Minutes Spent Total Time Spent with Patient: Total time spent is greater than 50% in coordination of care (as documented) at patient's floor/unit and/or counseling patient: (1) UTI (urinary tract infection) Encounter type: initial encounter Indwelling urinary catheter type: indwelling urethral catheter Urinary tract infection type: catheter-associated UTI Qualified Code(s): T83.511A - Infection and inflammatory reaction due to indwelling urethral catheter, initial encounter; N39.0 - Urinary tract infection, site not specified
[2019-05-07] MEDS: DIGOXIN 0.125 MG TAB PO SCH (16:08)
[2019-05-07] MEDS: RIVAROXABAN 20 MG TAB PO SCH (20:08)
[2019-05-07] MEDS: MULTIVITAMIN TAB PO SCH (20:09)
[2019-05-07] MEDS ORDERED: NON-FORMULARY MEDICATION (Coenzyme Q10 [Coq-10] 100 MG) PO SCH (21:00)
[2019-05-08] MEDS: NSS + 20MEQ KCL 20 MEQ/1,000 ML BAG IV SCH (00:45)
[2019-05-08] MEDS: PIPERACILLIN/TAZOBACTAM 3.375 GM in DEXTROSE 5% 100 ML IV SCH ×3 (03:56→20:31)
[2019-05-08 07:06] LABS: Hematocrit (blood only) 37.4 % (42-52); Hemoglobin 12.3 g/dL (14.0-18.0); Mean Corpuscular Hgb Conc 32.9 g/dL (32-36); Mean Corpuscular Volume 91.2 fL (80-100); Mean Platelet Volume 9.9 fL (7.4-10.4); Platelet Count 171 K/uL (130-400); RDW Coefficient of Variation 13.6 % (11.5-14.5); RDW Standard Deviation 45.6 fL (36.4-46.3); White Blood Count 10.29 K/uL (4.8-10.8)
[2019-05-08 07:42] LABS: BUN Creatinine Ratio 13.7 (10-20); Calcium 9.1 mg/dl (8.5-10.1); Creatinine Clr Calc Pharmacy 46.3 ml/min; Est GFR (African American) 87.9; Est GFR (Non-African American) 75.8; Potassium 4.1 mmol/L (3.5-5.1)
[2019-05-08] MEDS: LACTOBACILLUS ACIDOPHILUS (FLORANEX) TAB PO SCH (09:20)
[2019-05-08] MEDS: ESCITALOPRAM OXALATE 10 MG TAB PO SCH (09:20)
[2019-05-08] MEDS: PANTOprazole 40 MG TAB PO SCH (09:20)
[2019-05-08] MEDS: CHOLECALCIFEROL 1,000 UNITS 25 MCG TAB PO SCH (09:20)
[2019-05-08] MEDS: ATORVASTATIN 40 MG TAB PO SCH (09:20)
[2019-05-08] MEDS: OXYBUTYNIN CHLORIDE XL 5 MG TABCR PO SCH (09:20)
[2019-05-08] MEDS: NYSTATIN POWDER 15GM BTL EXT SCH ×3 (09:21→20:32)
[2019-05-08] MEDS: DIGOXIN 0.125 MG TAB PO SCH (16:56)
--- NOTE | 2019-05-08 18:29 | Hospitalist Progress Note ---
Date of Service May 08, 2019 Assessment & Plan (1) UTI (urinary tract infection): Recurrent urinary tract infection/history of recurrent Pseudomonas infection/chronic indwelling Gupta catheter- Follow urine culture and sensitivity - pending DC fluids Zosyn 4.5 g IV every 8 hours. (2) Indwelling Gupta catheter present: Gupta was changed out in the ED (3) Pseudomonas infection: See above (4) Paroxysmal A-fib: Continue Xarelto, digoxin - will obtain dig level in the morning Patient also has history of PE (5) Depression: Continue home medications (6) Esophageal reflux: Continue pantoprazole (7) Post-traumatic paraplegia: Would care nurse for areas of skin breakdown Dispo: patient is currently a hospice patient with [facility]. Plan is to return home on hospice. May have to look in interim SNF as patient will need IV abx Subjective Mr. Rockwell denies any pain or discomfort. He is a bit better oriented today, knows that he is in the hospital. ROS Constitutional: no chills, aches, sweats or fever Respiratory: no sob,cough, sputum, or wheezing Cardiac: no chest pain, palpitations, edema, orthopnea or lightheadedness GI: no abdominal pain, nausea, vomiting, diarrhea or constipation : no dysuria or hesitancy Extremities: no joint pain or weakness Skin: no rash All other systems reviewed and negative Physical Exam Physical Exam: General: no distress Eyes: normal inspection, PERLL Respiratory: chest non tender, clear to auscultation, normal breath sounds, no respiratory distress, no accessory muscle use Cardiac: regular rate and rhythm, no rub or gallop, no murmur, no edema, no jvd GI/: active bowel sounds, no abd pain or tenderness, soft, non distended Extremities: generalized weakness, paraplegic Neuro/Psych: alert and oriented to person and place, normal mood and affect Skin: normal color, dry Results & Data Vital Signs (Past 12 Hours) Vital Signs Temp Pulse Pulse Resp BP Pulse Ox 05/08/19 16:56 68 05/08/19 15:39 36.7 C 74 18 115/57 L 99 05/08/19 07:22 36.4 C L 70 18 136/72 97 PG Care Time/CCT Total # of Minutes Spent Total Time Spent with Patient: Total time spent is greater than 50% in coordination of care (as documented) at patient's floor/unit and/or counseling patient: Coding Level of Care Code 99955 Subseq Hosp Care Lvl 2 Diagnoses UTI (urinary tract infection) T83.511A; N39.0 Encounter type: initial encounter Indwelling urinary catheter type: indwelling urethral catheter Urinary tract infection type: catheter-associated UTI Indwelling Gupta catheter present Z96.0 Pseudomonas infection A49.8 Paroxysmal A-fib I48.0 Depression F32.9 Esophageal reflux K21.9 Post-traumatic paraplegia T14.90XS (1) UTI (urinary tract infection) Encounter type: initial encounter Indwelling urinary catheter type: indwelling urethral catheter Urinary tract infection type: catheter-associated UTI Qualified Code(s): T83.511A - Infection and inflammatory reaction due to indwelling urethral catheter, initial encounter; N39.0 - Urinary tract infection, site not specified
[2019-05-08 20:01] LABS: Basophils # (auto) 0.04 K/uL (0-0.2); Basophils % (auto) 0.5 %; Eosinophils # (auto) 0.78 K/uL (0-0.5); Eosinophils % (auto) 9.4 %; Hematocrit (blood only) 35.8 % (42-52); Hemoglobin 11.8 g/dL (14.0-18.0); Immature Granulocytes # (auto) 0.03 K/uL (0.00-0.02); Immature Granulocytes % (auto) 0.4 %; Lymphocytes # (auto) 1.09 K/uL (1.2-3.4); Lymphocytes % (auto) 13.1 %; Mean Corpuscular Volume 91.1 fL (80-100); Mean Platelet Volume 9.5 fL (7.4-10.4); Monocytes # (auto) 1.19 K/uL (0.11-0.59); Monocytes % (auto) 14.3 %; Neutrophils # (auto) 5.17 K/uL (1.4-6.5); Neutrophils % (auto) 62.3 %; Platelet Count 163 K/uL (130-400); RDW Coefficient of Variation 13.6 % (11.5-14.5); RDW Standard Deviation 45.6 fL (36.4-46.3); Red Blood Count 3.93 M/uL (4.7-6.1)
[2019-05-08 20:18] LABS: BUN Creatinine Ratio 14.6 (10-20); Calcium 8.8 mg/dl (8.5-10.1); Creatinine Clr Calc Pharmacy 46.8 ml/min; Est GFR (African American) 88.3; Est GFR (Non-African American) 76.2; Potassium 4.1 mmol/L (3.5-5.1)
[2019-05-08] MEDS: MULTIVITAMIN TAB PO SCH (20:31)
[2019-05-08] MEDS: RIVAROXABAN 20 MG TAB PO SCH (20:32)
[2019-05-09] MEDS: PIPERACILLIN/TAZOBACTAM 3.375 GM in DEXTROSE 5% 100 ML IV SCH ×3 (03:36→20:32)
[2019-05-09] MEDS: NYSTATIN POWDER 15GM BTL EXT SCH ×3 (08:52→20:32)
[2019-05-09] MEDS: LACTOBACILLUS ACIDOPHILUS (FLORANEX) TAB PO SCH (08:52)
[2019-05-09] MEDS: CHOLECALCIFEROL 1,000 UNITS 25 MCG TAB PO SCH (08:52)
[2019-05-09] MEDS: ESCITALOPRAM OXALATE 10 MG TAB PO SCH (08:52)
[2019-05-09] MEDS: ATORVASTATIN 40 MG TAB PO SCH (08:52)
[2019-05-09] MEDS: OXYBUTYNIN CHLORIDE XL 5 MG TABCR PO SCH (08:52)
[2019-05-09] MEDS: PANTOprazole 40 MG TAB PO SCH (08:52)
--- NOTE | 2019-05-09 14:49 | Hospitalist Progress Note ---
Date of Service May 09, 2019 Assessment & Plan (1) UTI (urinary tract infection): Gupta catheter related UTI Recurrent urinary tract infection/history of recurrent Pseudomonas infection/chronic indwelling Gupta catheter- Culture growing pseudomonas and strep species DC fluids Zosyn 4.5 g IV every 8 hours treatement for 7 days (2) Indwelling Gupta catheter present: Gupta was changed out in the ED (3) Pseudomonas infection: See above (4) Paroxysmal A-fib: Continue Xarelto, digoxin - dig level is 1.0 Patient also has history of PE (5) Depression: Continue home medications (6) Esophageal reflux: Continue pantoprazole (7) Post-traumatic paraplegia: Would care nurse for areas of skin breakdown Dispo: patient is currently a hospice patient with [facility]. Plan is to return home on hospice. Will have to complete IV abx here before discharging (8) Metabolic encephalopathy: in the setting of infection (UTI) treating with antibiotics Improving Results & Data Vital Signs (Past 12 Hours) Vital Signs Temp Pulse Resp BP Pulse Ox 05/09/19 07:13 36.4 C L 67 18 150/80 H 97 PG Care Time/CCT Total # of Minutes Spent Total Time Spent with Patient: Total time spent is greater than 50% in coordination of care (as documented) at patient's floor/unit and/or counseling patient: Coding Level of Care Code 68403 Subseq Hosp Care Lvl 2 Diagnoses UTI (urinary tract infection) T83.511A; N39.0 Encounter type: initial encounter Indwelling urinary catheter type: indwelling urethral catheter Urinary tract infection type: catheter-associated UTI Indwelling Gupta catheter present Z96.0 Pseudomonas infection A49.8 Paroxysmal A-fib I48.0 Depression F32.9 Esophageal reflux K21.9 Post-traumatic paraplegia T14.90XS Metabolic encephalopathy G93.41 (1) UTI (urinary tract infection) Encounter type: initial encounter Indwelling urinary catheter type: indwelling urethral catheter Urinary tract infection type: catheter-associated UTI Qualified Code(s): T83.511A - Infection and inflammatory reaction due to indwelling urethral catheter, initial encounter; N39.0 - Urinary tract infection, site not specified
[2019-05-09 15:02] LABS: Hemoglobin 12.3 g/dL (14.0-18.0); Mean Corpuscular Hgb Conc 33.2 g/dL (32-36); Mean Corpuscular Volume 90.2 fL (80-100); Mean Platelet Volume 9.3 fL (7.4-10.4); Platelet Count 159 K/uL (130-400); RDW Coefficient of Variation 13.6 % (11.5-14.5); RDW Standard Deviation 44.8 fL (36.4-46.3); White Blood Count 7.65 K/uL (4.8-10.8)
[2019-05-09] MEDS: DIGOXIN 0.125 MG TAB PO SCH (16:07)
[2019-05-09] MEDS: MULTIVITAMIN TAB PO SCH (20:33)
[2019-05-09] MEDS: RIVAROXABAN 20 MG TAB PO SCH (20:34)
[2019-05-10] MEDS: PIPERACILLIN/TAZOBACTAM 3.375 GM in DEXTROSE 5% 100 ML IV SCH ×3 (04:09→20:40)
[2019-05-10 07:02] LABS: Creatinine Clr Calc Pharmacy 44.3 ml/min; Est GFR (African American) 84.1; Est GFR (Non-African American) 72.5
[2019-05-10] MEDS: OXYBUTYNIN CHLORIDE XL 5 MG TABCR PO SCH (10:35)
[2019-05-10] MEDS: LACTOBACILLUS ACIDOPHILUS (FLORANEX) TAB PO SCH (10:36)
[2019-05-10] MEDS: ESCITALOPRAM OXALATE 10 MG TAB PO SCH (10:37)
[2019-05-10] MEDS: ATORVASTATIN 40 MG TAB PO SCH (10:38)
[2019-05-10] MEDS: NYSTATIN POWDER 15GM BTL EXT SCH ×3 (10:38→20:40)
[2019-05-10] MEDS: PANTOprazole 40 MG TAB PO SCH (10:38)
[2019-05-10] MEDS: CHOLECALCIFEROL 1,000 UNITS 25 MCG TAB PO SCH (10:39)
--- NOTE | 2019-05-10 12:05 | Hospitalist Progress Note ---
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- Culture growing pseudomonas and strep species DC fluids Zosyn 4.5 g IV every 8 hours treatement for 7 days - last day 05/14 (2) Indwelling Gupta catheter present: Gupta was changed out in the ED (3) Pseudomonas infection: See above (4) Paroxysmal A-fib: Continue Xarelto, digoxin - dig level is 1.0 Patient also has history of PE (5) Depression: Continue home medications (6) Esophageal reflux: Continue pantoprazole (7) Metabolic encephalopathy: in the setting of infection (UTI) treating with antibiotics Improving (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 Plan is to return home on hospice. Will have to complete IV abx here before discharging Subjective Mr. Rockwell has no complaints ROS Constitutional: no chills, aches, sweats or fever Respiratory: no sob,cough, sputum, or wheezing Cardiac: no chest pain, palpitations, edema, orthopnea or lightheadedness GI: no abdominal pain, nausea, vomiting, diarrhea or constipation : no dysuria or hesitancy Extremities: no joint pain or weakness Skin: no rash All other systems reviewed and negative Physical Exam Physical Exam: General: no distress Eyes: normal inspection, PERLL Respiratory: chest non tender, clear to auscultation, normal breath sounds, no respiratory distress, no accessory muscle use Cardiac: regular rate and rhythm, no rub or gallop, no murmur, no edema, no jvd GI/: active bowel sounds, no abd pain or tenderness, soft, non distended Extremities: generalized weakness, paraplegic, Neuro/Psych: alert and oriented x 3, normal mood and affect Skin: normal color, dry Results & Data Vital Signs (Past 12 Hours) Vital Signs Temp Pulse Resp BP Pulse Ox 05/10/19 07:41 36.5 C 70 20 135/75 97 PG Care Time/CCT Total # of Minutes Spent Total Time Spent with Patient: Total time spent is greater than 50% in coordination of care (as documented) at patient's floor/unit and/or counseling patient: Coding Level of Care Code 67293 Subseq Hosp Care Lvl 2 Diagnoses UTI (urinary tract infection) T83.511A; N39.0 Encounter type: initial encounter Indwelling urinary catheter type: indwelling urethral catheter Urinary tract infection type: catheter-associated UTI Indwelling Gupta catheter present Z96.0 Pseudomonas infection A49.8 Paroxysmal A-fib I48.0 Depression F32.9 Esophageal reflux K21.9 Metabolic encephalopathy G93.41 Post-traumatic paraplegia T14.90XS (1) UTI (urinary tract infection) Encounter type: initial encounter Indwelling urinary catheter type: indwelling urethral catheter Urinary tract infection type: catheter-associated UTI Qualified Code(s): T83.511A - Infection and inflammatory reaction due to indwelling urethral catheter, initial encounter; N39.0 - Urinary tract infection, site not specified
[2019-05-10] MEDS: DIGOXIN 0.125 MG TAB PO SCH (16:36)
[2019-05-10] MEDS: RIVAROXABAN 15 MG TAB PO SCH (20:40)
[2019-05-10] MEDS: MULTIVITAMIN TAB PO SCH (20:41)
[2019-05-11] MEDS: PIPERACILLIN/TAZOBACTAM 3.375 GM in DEXTROSE 5% 100 ML IV SCH ×3 (04:15→20:57)
[2019-05-11] MEDS: OXYBUTYNIN CHLORIDE XL 5 MG TABCR PO SCH (08:50)
[2019-05-11] MEDS: CHOLECALCIFEROL 1,000 UNITS 25 MCG TAB PO SCH (08:50)
[2019-05-11] MEDS: NYSTATIN POWDER 15GM BTL EXT SCH ×3 (08:50→20:57)
[2019-05-11] MEDS: PANTOprazole 40 MG TAB PO SCH (08:50)
[2019-05-11] MEDS: ESCITALOPRAM OXALATE 10 MG TAB PO SCH (08:50)
[2019-05-11] MEDS: ATORVASTATIN 40 MG TAB PO SCH (08:50)
[2019-05-11] MEDS: LACTOBACILLUS ACIDOPHILUS (FLORANEX) TAB PO SCH (08:51)
--- NOTE | 2019-05-11 14:02 | Hospitalist Progress Note ---
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- Culture growing pseudomonas and strep species Zosyn 4.5 g IV every 8 hours treatement for 7 days - last day 05/14 (2) Indwelling Gupta catheter present: Gupta was changed out in the ED (3) Pseudomonas infection: See above (4) Paroxysmal A-fib: Continue Xarelto, digoxin - dig level is 1.0 Patient also has history of PE (5) Depression: Continue home medications (6) Esophageal reflux: Continue pantoprazole (7) Metabolic encephalopathy: in the setting of infection (UTI) treating with antibiotics resolved, at baseline (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 Plan is to return home on hospice. Will have to complete IV abx here before discharging Subjective Mr. Horvath has no complaints, much more oriented today. His is bedside, updated. ROS Constitutional: no chills, aches, sweats or fever Respiratory: no sob,cough, sputum, or wheezing Cardiac: no chest pain, palpitations, edema, orthopnea or lightheadedness GI: no abdominal pain, nausea, vomiting, diarrhea or constipation : no dysuria or hesitancy Extremities: no joint pain or weakness Skin: no rash All other systems reviewed and negative Physical Exam Physical Exam: General: no distress Eyes: normal inspection, PERLL Respiratory: chest non tender, clear to auscultation, normal breath sounds, no respiratory distress, no accessory muscle use Cardiac: regular rate and rhythm, no rub or gallop, no murmur, no edema, no jvd GI/: active bowel sounds, no abd pain or tenderness, soft, non distended Extremities: normal range of motion, normal strength, non tender Neuro/Psych: alert and oriented x 3, normal mood and affect Skin: normal color, dry Results & Data Vital Signs (Past 12 Hours) Vital Signs Temp Pulse Resp BP Pulse Ox 05/11/19 07:00 36.7 C 82 20 112/74 96 PG Care Time/CCT Total # of Minutes Spent Total Time Spent with Patient: Total time spent is greater than 50% in coordination of care (as documented) at patient's floor/unit and/or counseling patient: Coding Level of Care Code 20744 Subseq Hosp Care Lvl 2 Diagnoses UTI (urinary tract infection) T83.511A; N39.0 Encounter type: initial encounter Indwelling urinary catheter type: indwelling urethral catheter Urinary tract infection type: catheter-associated UTI Indwelling Gupta catheter present Z96.0 Pseudomonas infection A49.8 Paroxysmal A-fib I48.0 Depression F32.9 Esophageal reflux K21.9 Metabolic encephalopathy G93.41 Post-traumatic paraplegia T14.90XS (1) UTI (urinary tract infection) Encounter type: initial encounter Indwelling urinary catheter type: indwelling urethral catheter Urinary tract infection type: catheter-associated UTI Qualified Code(s): T83.511A - Infection and inflammatory reaction due to indwelling urethral catheter, initial encounter; N39.0 - Urinary tract in fection, site not specified
[2019-05-11] MEDS: DIGOXIN 0.125 MG TAB PO SCH (16:34)
[2019-05-11] MEDS: MULTIVITAMIN TAB PO SCH (20:57)
[2019-05-11] MEDS: RIVAROXABAN 15 MG TAB PO SCH (20:58)
[2019-05-12] MEDS: PIPERACILLIN/TAZOBACTAM 3.375 GM in DEXTROSE 5% 100 ML IV SCH ×3 (04:05→20:44)
[2019-05-12 06:35] LABS: Creatinine Clr Calc Pharmacy 46.3 ml/min; Est GFR (African American) 87.9; Est GFR (Non-African American) 75.8
[2019-05-12] MEDS: CHOLECALCIFEROL 1,000 UNITS 25 MCG TAB PO SCH (07:52)
[2019-05-12] MEDS: ESCITALOPRAM OXALATE 10 MG TAB PO SCH (07:52)
[2019-05-12] MEDS: OXYBUTYNIN CHLORIDE XL 5 MG TABCR PO SCH (07:52)
[2019-05-12] MEDS: PANTOprazole 40 MG TAB PO SCH (07:52)
[2019-05-12] MEDS: ATORVASTATIN 40 MG TAB PO SCH (07:52)
[2019-05-12] MEDS: LACTOBACILLUS ACIDOPHILUS (FLORANEX) TAB PO SCH (07:52)
[2019-05-12] MEDS: NYSTATIN POWDER 15GM BTL EXT SCH ×3 (07:57→20:45)
[2019-05-12 08:53] LABS: Hematocrit (blood only) 39.2 % (42-52); Hemoglobin 12.7 g/dL (14.0-18.0); Mean Corpuscular Hemoglobin 29.3 pg (25-34); Mean Corpuscular Hgb Conc 32.4 g/dL (32-36); Mean Corpuscular Volume 90.3 fL (80-100); Mean Platelet Volume 10.1 fL (7.4-10.4); Platelet Count 221 K/uL (130-400); RDW Coefficient of Variation 13.4 % (11.5-14.5); RDW Standard Deviation 44.1 fL (36.4-46.3); Red Blood Count 4.34 M/uL (4.7-6.1); White Blood Count 9.89 K/uL (4.8-10.8)
[2019-05-12 09:01] LABS: BUN Creatinine Ratio 26.3 (10-20); Calcium 9.9 mg/dl (8.5-10.1); Creatinine Clr Calc Pharmacy 44.3 ml/min; Est GFR (African American) 84.1; Est GFR (Non-African American) 72.5; Potassium 3.9 mmol/L (3.5-5.1)
--- NOTE | 2019-05-12 13:00 | Hospitalist Progress Note ---
Date of Service May 12, 2019 Assessment & Plan (1) UTI (urinary tract infection): - Catheter related UTI. - UC +Enterococcus and Pseudomonas. - Continue Zosyn for 7 days -- scheduled to finish treatment on 05/14/19. (2) Gram-negative bacteremia: - BC 05/06 +Diptheroids (likely contamination) and new growth of gram negative bacilli. - Currently on Zosyn IV, planned for 7 day course but consider longer course due to gram negative bacteremia. - Repeat BC x 2 to evaluate for resolution. (3) Indwelling Gupta catheter present: - Exchanged in the ER. (4) Paroxysmal A-fib: - Continue Xarelto and Digoxin as prescribed (Dig level was 1.0) (5) Depression: - Continue home Lexapro as prescribed. (6) Esophageal reflux: - PPI daily. (7) Metabolic encephalopathy: - Related to acute UTI; returned to baseline mental status at this point. (8) Post-traumatic paraplegia: - Monitored; wound nurse following for management of wounds. Dispo: Discharge back to hospice with [facility] following completion of IV abx, likely on . Subjective Pt. is very pleasant but confused on exam related to dementia. He reports feeling well overall. Review of Systems Review of Systems: Other (Limited due to h/o dementia. ) Constitutional: no fever, no chills, no fatigue, no weakness and no anorexia Cardiovascular: no chest pain and no edema Gastrointestinal: no abdominal pain, no nausea and no constipation Genitourinary: no dysuria and no difficulty urinating Musculoskeletal: no back pain and no joint pain Physical Exam Physical Exam: General: Resting comfortably HEENT: NC/AT; PERRLA with EOMI; [place] conjunctiva, MMM. No erythema of posterior pharynx Neck: Supple and nontender Cardiac: RRR Lungs: CTA bilaterally Abdomen: Bowel normoactive X 4; Nontender to palpation. Ostomy with adequate output. Extremities: Warm. No edema present Neuro: No focal weakness; baseline confusion present. Skin: No rash Results & Data Vital Signs (Past 12 Hours) Vital Signs Temp Pulse Resp BP Pulse Ox 05/12/19 08:00 36.5 C 70 20 145/84 H 96 Laboratory Results 05/12/19 05/12/19 05/12/19 Range/Units 05:41 05:41 05:41 WBC 9.89 (4.8-10.8) K/uL RBC 4.34 L (4.7-6.1) M/uL Hgb 12.7 L (14.0-18.0) g/dL Hct 39.2 L (42-52) % MCV 90.3 (80-100) fL MCH 29.3 (25-34) pg MCHC 32.4 (32-36) g/dL RDW Std Deviation 44.1 (36.4-46.3) fL RDW Coeff of Evelyne 13.4 (11.5-14.5) % Plt Count 221 (130-400) K/uL MPV 10.1 (7.4-10.4) fL Sodium 134 L (136-145) mmol/L Potassium 3.9 (3.5-5.1) mmol/L Chloride 97 L (98-107) mmol/L Carbon Dioxide 34 H (21-32) mmol/L Anion Gap 3.0 (3-11) BUN 24 H (7-18) mg/dl Creatinine 0.93 0.89 (0.6-1.4) mg/dl Est Cr Clr Drug Dosing 44.3 46.3 ml/min Est GFR ( Amer) 84.1 87.9 Est GFR (Non-Af Amer) 72.5 75.8 BUN/Creatinine Ratio 26.3 H (10-20) Glucose 129 H (70-99) mg/dl Calcium 9.9 (8.5-10.1) mg/dl PG Care Time/CCT Total # of Minutes Spent Total Time Spent with Patient: Total time spent is greater than 50% in coordination of care (as documented) at patient's floor/unit and/or counseling patient: Coding Level of Care Code 43188 Subseq Hosp Care Lvl 2 Diagnoses UTI (urinary tract infection) T83.511A; N39.0 Encounter type: initial encounter Indwelling urinary catheter type: indwelling urethral catheter Urinary tract infection type: catheter-associated UTI Gram-negative bacteremia R78.81 Indwelling Gupta catheter present Z96.0 Paroxysmal A-fib I48.0 Depression F32.9 Esophageal reflux K21.9 Metabolic encephalopathy G93.41 Post-traumatic paraplegia T14.90XS (1) UTI (urinary tract infection) Encounter type: initial encounter Indwelling urinary catheter type: indwelling urethral catheter Urinary tract infection type: catheter-associated UTI Qualified Code(s): T83.511A - Infection and inflammatory reaction due to indwelling urethral catheter, initial encounter; N39.0 - Urinary tract infection, site not specified
[2019-05-12] MEDS: DIGOXIN 0.125 MG TAB PO SCH (17:11)
[2019-05-12] MEDS: MULTIVITAMIN TAB PO SCH (20:44)
[2019-05-12] MEDS: RIVAROXABAN 15 MG TAB PO SCH (20:44)
[2019-05-13] MEDS: PIPERACILLIN/TAZOBACTAM 3.375 GM in DEXTROSE 5% 100 ML IV SCH ×3 (04:31→20:19)
[2019-05-13] MEDS: LACTOBACILLUS ACIDOPHILUS (FLORANEX) TAB PO SCH (08:29)
[2019-05-13] MEDS: OXYBUTYNIN CHLORIDE XL 5 MG TABCR PO SCH (08:30)
[2019-05-13] MEDS: ATORVASTATIN 40 MG TAB PO SCH (08:31)
[2019-05-13] MEDS: CHOLECALCIFEROL 1,000 UNITS 25 MCG TAB PO SCH (08:31)
[2019-05-13] MEDS: PANTOprazole 40 MG TAB PO SCH (08:31)
[2019-05-13] MEDS: ESCITALOPRAM OXALATE 10 MG TAB PO SCH (08:35)
[2019-05-13] MEDS: NYSTATIN POWDER 15GM BTL EXT SCH ×3 (08:36→20:22)
--- NOTE | 2019-05-13 14:30 | Hospitalist Progress Note ---
Date of Service May 13, 2019 Assessment & Plan (1) UTI (urinary tract infection): - Catheter related UTI. - UC +Enterococcus and Pseudomonas. - Continue Zosyn for 7 days -- scheduled to finish treatment on 05/14/19. - His is concerned -- does not think acute confusion has improved. Will repeat UC to verify that current abx are susceptible. (2) Gram-negative bacteremia: - BC 05/06 +Diptheroids (likely contamination) and gram negative bacilli. - Currently on Zosyn IV, planned for 7 day course but consider longer course due to gram negative bacteremia. - Procal level 0.06. - Repeat BC x 2 & UC pending. (3) Indwelling Gupta catheter present: - Exchanged in the ER. (4) Paroxysmal A-fib: - Continue Xarelto and Digoxin as prescribed (Dig level was 1.0) (5) Depression: - Continue home Lexapro as prescribed. (6) Esophageal reflux: - PPI daily. (7) Metabolic encephalopathy: - Related to acute UTI; his does not feel that patient has returned to baseline mental status yet. - Repeating BC and UC to evaluate for improvement. - May have element of underlying hospital delirium contributing to confusion as well. (8) Post-traumatic paraplegia: - Monitored; wound nurse following for management of wounds. Dispo: Discharge back to hospice with [facility] following completion of IV abx, likely on . Subjective Pt. is doing well overall. He is confused -- appears to be stable. Discussed case with his this morning via phone call. She is concerned, feels like his confusion is not improving with IV abx. She states he is only confused when he has an acute infection but otherwise is alert & oriented x 3 at home. She also does not fully understand the concept of hospice and states "I just don't him to ". Did not extensively discuss goals of hospice but did state at some point he may develop a UTI that is resistant to the majority of abx. Will repeat UC per 's request to verify UTI is being adequately treated with IV abx. Review of Systems Review of Systems: All systems reviewed & are unremarkable except as noted in HPI & below Constitutional: + fatigue and + weakness; no fever, no chills and no anorexia Genitourinary: no difficulty urinating Neurologic: + confusion Physical Exam Physical Exam: General: Resting comfortably HEENT: NC/AT; PERRLA with EOMI; [place] conjunctiva, MMM. No erythema of posterior pharynx Neck: Supple and nontender Cardiac: RRR Lungs: CTA bilaterally Abdomen: Bowel normoactive X 4; Nontender to palpation. Ostomy with good output. Extremities: Warm. No edema present Neuro: No focal weakness; appears confused at times during our conversation. Skin: No rash Results & Data Vital Signs (Past 12 Hours) Vital Signs Temp Pulse Resp BP Pulse Ox 05/13/19 07:09 36.7 C 73 16 130/78 95 Laboratory Results 05/13/19 Range/Units 06:08 Procalcitonin 0.06 (0-0.5) ng/ml PG Care Time/CCT Total # of Minutes Spent Total Time Spent with Patient: Total time spent is greater than 50% in coordination of care (as documented) at patient's floor/unit and/or counseling patient: Coding Level of Care Code 38598 Subseq Hosp Care Lvl 2 Diagnoses UTI (urinary tract infection) T83.511A; N39.0 Encounter type: initial encounter Indwelling urinary catheter type: indwelling urethral catheter Urinary tract infection type: catheter-associated UTI Gram-negative bacteremia R78.81 Indwelling Gupta catheter present Z96.0 Paroxysmal A-fib I48.0 Depression F32.9 Esophageal reflux K21.9 Metabolic encephalopathy G93.41 Post-traumatic paraplegia T14.90XS (1) UTI (urinary tract infection) Encounter type: initial encounter Indwelling urinary catheter type: indwelling urethral catheter Urinary tract infection type: catheter-associated UTI Qualified Code(s): T83.511A - Infection and inflammatory reaction due to indwelling urethral catheter, initial encounter; N39.0 - Urinary tract infection, site not specified
[2019-05-13] MEDS: DIGOXIN 0.125 MG TAB PO SCH (16:02)
[2019-05-13] MEDS: MULTIVITAMIN TAB PO SCH (20:22)
[2019-05-13] MEDS: RIVAROXABAN 15 MG TAB PO SCH (20:22)
[2019-05-14] MEDS: PIPERACILLIN/TAZOBACTAM 3.375 GM in DEXTROSE 5% 100 ML IV SCH ×3 (03:51→19:52)
[2019-05-14 07:24] LABS: Hematocrit (blood only) 37.6 % (42-52); Hemoglobin 12.6 g/dL (14.0-18.0); Mean Corpuscular Hemoglobin 30.5 pg (25-34); Mean Corpuscular Hgb Conc 33.5 g/dL (32-36); Mean Platelet Volume 9.8 fL (7.4-10.4); Platelet Count 242 K/uL (130-400); RDW Coefficient of Variation 13.9 % (11.5-14.5); RDW Standard Deviation 45.7 fL (36.4-46.3); Red Blood Count 4.13 M/uL (4.7-6.1); White Blood Count 12.06 K/uL (4.8-10.8)
[2019-05-14 07:50] LABS: BUN Creatinine Ratio 23.7 (10-20); Calcium 9.8 mg/dl (8.5-10.1); Creatinine Clr Calc Pharmacy 38.2 ml/min; Est GFR (African American) 70.2; Est GFR (Non-African American) 60.5; Potassium 3.8 mmol/L (3.5-5.1)
[2019-05-14] MEDS: PANTOprazole 40 MG TAB PO SCH (09:29)
[2019-05-14] MEDS: CHOLECALCIFEROL 1,000 UNITS 25 MCG TAB PO SCH (09:29)
[2019-05-14] MEDS: LACTOBACILLUS ACIDOPHILUS (FLORANEX) TAB PO SCH (09:29)
[2019-05-14] MEDS: OXYBUTYNIN CHLORIDE XL 5 MG TABCR PO SCH (09:29)
[2019-05-14] MEDS: ATORVASTATIN 40 MG TAB PO SCH (09:29)
[2019-05-14] MEDS: NYSTATIN POWDER 15GM BTL EXT SCH ×3 (09:29→20:01)
[2019-05-14] MEDS: ESCITALOPRAM OXALATE 10 MG TAB PO SCH (09:29)
[2019-05-14] MEDS ORDERED: SODIUM CHLORIDE 0.9% 1000ML 1,000 ML IV SCH (09:45)
--- NOTE | 2019-05-14 14:06 | CT Scan Report ---
CT head/brain wo con CT DOSE: 537.48 mGy.cm HISTORY: Mental status change Altered mental status TECHNIQUE: Multiaxial CT images of the head were performed without the use of intravenous contrast. A dose lowering technique was utilized adhering to the principles of ALARA. Comparison: 05/06/2019 Findings: The paranasal sinuses and mastoid air cells are clear. The calvarium and skull base are int act. The ventricles and sulci are within normal limits. There is no mass, hematoma, midline shift, or acute infarct. Age-related atrophy and chronic small vessel change Impression: No acute intracranial abnormality. Age-related atrophy and chronic small vessel change ACT 112: Negative or not required by law. The above report was generated using voice recognition software. It may contain grammatical, syntax or spelling errors. Electronically signed by: Amador Mock M.D. 05/14/2019 2:04 PM
--- NOTE | 2019-05-14 15:00 | Hospitalist Progress Note ---
Date of Service May 14, 2019 Assessment & Plan (1) UTI (urinary tract infection): - Catheter related UTI. - UC +Enterococcus and Pseudomonas. - Continue Zosyn for 7 days -- scheduled to finish treatment this evening. Will convert to Ciprofloxacin 500 mg BID x 7 days. - Repeat UC is pending -- his is concerned that infection is not fully treated as pt. still exhibits signs of acute confusion. (2) Gram-negative bacteremia: - BC 05/06 +Diptheroids (likely contamination) and gram negative bacilli, has not been differentiated yet but is likely not Pseudomonas. - On Zosyn IV, will treat for 7 days (to cover for Enterococcus as well) and convert to Cipro 500 mg BID x 7 days on 05/15 to cover for gram negative bacteremia. If BC results as Pseudomonas, will need to re-discuss antibiotic plans. - Repeat BC negative (prelim); UC is pending. (3) Metabolic encephalopathy: - Related to acute UTI; his is concerned that confusion has not improved. May be related to hospital delirium. - Repeat head CT is negative. - Repeat BC negative; repeat UC is pending. (4) Indwelling Gupta catheter present: - Exchanged in the ER. (5) Paroxysmal A-fib: - Continue Xarelto and Digoxin as prescribed (Dig level was 1.0) (6) Depression: - Continue home Lexapro as prescribed. (7) Esophageal reflux: - PPI daily. (8) Post-traumatic paraplegia: - Monitored; wound nurse following for management of ostomy and wounds. Dispo: Discharge back to hospice with [facility] following completion of IV abx, likely tomorrow. Subjective Pt. is doing well. He was confused during rounds, not alert to person or place. He was completely alert and oriented during his visit with his this afternoon per nurse report. CT head pending. Pt. likely has component of hospital delirium leading to confusion with questionable dementia at home. Will complete Zosyn course this evening then transition to PO Cipro on 05/15. Review of Systems Review of Systems: All systems reviewed & are unremarkable except as noted in HPI & below Constitutional: no fever, no chills, no fatigue, no weakness and no anorexia Respiratory: no cough, no dyspnea and no dyspnea on exertion Cardiovascular: no chest pain, no palpitations and no edema Gastrointestinal: no abdominal pain, no nausea, no vomiting and no constipation Genitourinary: no difficulty urinating Musculoskeletal: no back pain and no joint pain Integumentary: no non-healing lesions Neurologic: + confusion Physical Exam Physical Exam: General: Resting comfortably HEENT: NC/AT; PERRLA with EOMI; [place] conjunctiva, MMM. No erythema of posterior pharynx Neck: Supple and nontender Cardiac: RRR Lungs: CTA bilaterally Abdomen: Bowel normoactive X 4; Nontender to palpation. Ostomy with output noted. Extremities: Warm. No edema present Neuro: No focal weakness; not alert to person or place. Skin: No rash Results & Data Vital Signs (Past 12 Hours) Vital Signs Temp Pulse Resp BP Pulse Ox 05/14/19 07:13 36.1 C L 67 16 107/59 L 97 Laboratory Results 05/14/19 05/14/19 Range/Units 06:47 06:47 WBC 12.06 H (4.8-10.8) K/uL RBC 4.13 L (4.7-6.1) M/uL Hgb 12.6 L (14.0-18.0) g/dL Hct 37.6 L (42-52) % MCV 91.0 (80-100) fL MCH 30.5 (25-34) pg MCHC 33.5 (32-36) g/dL RDW Std Deviation 45.7 (36.4-46.3) fL RDW Coeff of Evelyne 13.9 (11.5-14.5) % Plt Count 242 (130-400) K/uL MPV 9.8 (7.4-10.4) fL Sodium 134 L (136-145) mmol/L Potassium 3.8 (3.5-5.1) mmol/L Chloride 97 L (98-107) mmol/L Carbon Dioxide 33 H (21-32) mmol/L Anion Gap 4.0 (3-11) BUN 26 H (7-18) mg/dl Creatinine 1.08 (0.6-1.4) mg/dl Est Cr Clr Drug Dosing 38.2 ml/min Est GFR ( Amer) 70.2 Est GFR (Non-Af Amer) 60.5 BUN/Creatinine Ratio 23.7 H (10-20) Glucose 114 H (70-99) mg/dl Calcium 9.8 (8.5-10.1) mg/dl PG Care Time/CCT Total # of Minutes Spent Total Time Spent with Patient: Total time spent is greater than 50% in coordination of care (as documented) at patient's floor/unit and/or counseling patient: Coding Level of Care Code 22981 Subseq Hosp Care Lvl 2 Diagnoses UTI (urinary tract infection) T83.511A; N39.0 Encounter type: initial encounter Indwelling urinary catheter type: indwelling urethral catheter Urinary tract infection type: catheter-associated UTI Gram-negative bacteremia R78.81 Metabolic encephalopathy G93.41 Indwelling Gupta catheter present Z96.0 Paroxysmal A-fib I48.0 Depression F32.9 Esophageal reflux K21.9 Post-traumatic paraplegia T14.90XS (1) UTI (urinary tract infection) Encounter type: initial encounter Indwelling urinary catheter type: indwelling urethral catheter Urinary tract infection type: catheter-associated UTI Qualified Code(s): T83.511A - Infection and inflammatory reaction due to indwelling urethral catheter, initial encounter; N39.0 - Urinary tract infection, site not specified
[2019-05-14] MEDS: DIGOXIN 0.125 MG TAB PO SCH (16:34)
--- NOTE | 2019-05-14 18:00 | Electrocardiogram Report ---
Test Reason : Blood Pressure : / mmHG Vent. Rate : 071 BPM Atrial Rate : 071 BPM P-R Int : 280 ms QRS Dur : 112 ms QT Int : 374 ms P-R-T Axes : 067 066 233 degrees QTc Int : 406 ms Sinus rhythm with 1st degree A-V block and PVCs Anterolateral infarct (cited on or before 08-JUL-2017) Abnormal ECG When compared with ECG of 30-APR-2019 12:40, QRS duration has increased Criteria for Inferior infarct are no longer Present Inverted T waves have replaced nonspecific T wave abnormality in Lateral leads Confirmed by Robert Rodriguez [id number] on 05/14/2019 6:00:28 PM Referred By: REFERRED SELF Confirmed By:Compa Rodriguez
[2019-05-14] MEDS: MULTIVITAMIN TAB PO SCH (20:00)
[2019-05-14] MEDS: RIVAROXABAN 15 MG TAB PO SCH (20:01)
[2019-05-15 06:21] LABS: Hematocrit (blood only) 37.4 % (42-52); Hemoglobin 12.3 g/dL (14.0-18.0); Mean Corpuscular Hemoglobin 30.3 pg (25-34); Mean Corpuscular Hgb Conc 32.9 g/dL (32-36); Mean Corpuscular Volume 92.1 fL (80-100); Mean Platelet Volume 9.3 fL (7.4-10.4); Platelet Count 198 K/uL (130-400); RDW Coefficient of Variation 13.8 % (11.5-14.5); RDW Standard Deviation 45.8 fL (36.4-46.3); Red Blood Count 4.06 M/uL (4.7-6.1); White Blood Count 10.92 K/uL (4.8-10.8)
[2019-05-15 06:56] LABS: BUN Creatinine Ratio 22.5 (10-20); Calcium 9.5 mg/dl (8.5-10.1); Creatinine Clr Calc Pharmacy 37.1 ml/min; Est GFR (African American) 67.9; Est GFR (Non-African American) 58.6; Potassium 3.7 mmol/L (3.5-5.1)
[2019-05-15 07:13] VITALS: PULSE 76; TEMP 97.9; O2SAT 96
[2019-05-15] MEDS: OXYBUTYNIN CHLORIDE XL 5 MG TABCR PO SCH (07:44)
[2019-05-15] MEDS: ATORVASTATIN 40 MG TAB PO SCH (07:44)
[2019-05-15] MEDS: CHOLECALCIFEROL 1,000 UNITS 25 MCG TAB PO SCH (07:44)
[2019-05-15] MEDS: CIPROFLOXACIN 500 MG TAB PO SCH ×2 (07:44→10:29)
[2019-05-15] MEDS: ESCITALOPRAM OXALATE 10 MG TAB PO SCH (07:45)
[2019-05-15] MEDS: LACTOBACILLUS ACIDOPHILUS (FLORANEX) TAB PO SCH (07:45)
[2019-05-15] MEDS: PANTOprazole 40 MG TAB PO SCH (07:45)
[2019-05-15] MEDS: NYSTATIN POWDER 15GM BTL EXT SCH (07:45)
[2019-05-15 12:37] VITALS: BP 108/58
--- NOTE | 2019-05-15 14:06 | Discharge Summary ---
Date of Service May 15, 2019 Admission HPI Per Admitting Provider The patient is a 88-year-old male with a past medical history including chronic indwelling Gupta catheter, history of Pseudomonas infections, paroxysmal atrial fibrillation, hyperlipidemia, depression, pulmonary hypertension, neurogenic bladder, ischemic cardiomyopathy, ICD in place, GERD, CAD and posttraumatic paraplegia. In the emergency department, he was started on normal saline rehydration, Zosyn IV antibiotic, and referred for evaluation for presumptive Pseudomonas UTI. His Gupta catheter was also changed out at that time as well. Admission Exam Per Admitting Provider The patient is awake, well developed and well nourished, normocephalic and atraumatic, lying in bed and in no acute distress. HEENT--PERRL, EOMI, mucous membranes and oropharynx dry. Neck--supple. No JVD. No bruits. Thyroid normal, trachea midline, no adenopathy. Heart--normal S1 and S2. No murmurs, rubs or gallops. Lungs--clear bilaterally, no respiratory distress, no accessory muscle use. Abdomen--normal bowel sounds and soft. Nontender. Nondistended. Extremities--no cyanosis or clubbing. No edema. There are good distal pulses b/l. Dermatologic--normal skin turgor, normal color, no abnormal lymph nodes, no rash. Neurologic--cranial nerves II through XII grossly intact. Rheumatologic--paraplegia Psychiatric--normal affect. Principal Diagnosis UTI, Gram negative bacteremia Discharge Exam General: Resting comfortably HEENT: NC/AT; PERRLA with EOMI; [place] conjunctiva, MMM. No erythema of posterior pharynx Neck: Supple and nontender Cardiac: RRR Lungs: CTA bilaterally Abdomen: Bowel normoactive X 4; Nontender to palpation. Ostomy with output noted. Extremities: Warm. No edema present Neuro: No focal weakness; not alert to person or place. Skin: No rash Discharge Data Allergies Allergy/AdvReac Type Severity Reaction Status Date / Time banana Allergy Mild Abdominal Verified 04/30/19 18:13 Pain nitrofurantoin Allergy Unknown Unknown Verified 04/30/19 18:13 Sulfa (Sulfonamide Allergy Unknown Unknown Verified 04/30/19 18:13 Antibiotics) NSAIDS (Non-Steroidal AdvReac Severe internal Verified 04/30/19 18:13 Anti-Inflamma bleeding Food Allergy Severe ANAPHYLAXIS Uncoded 04/30/19 18:13 WITH RADISHES/ DIFFICULTY BREATHING HORSERADISH Consultations 05/07/19 00:07 ED Decision to Admit Stat 05/07/19 00:14 Consult Case Management - Discharge Planning Routine Ordered Studies 05/06/19 19:44 CT head/brain wo con Stat 05/14/19 13:09 CT head/brain wo con Urgent Hospital Course (1) UTI (urinary tract infection): Catheter related UTI. UC +Enterococcus and Pseudomonas. Completed 7 day course of Zosyn for treatment of UTI. Will convert to Cipro x 7 days for additional treatment of bacteremia. Repeat UC from 05/14 is negative. (2) Gram-negative bacteremia: BC 05/06 +Diptheroids (likely contamination) and gram negative bacilli, has not been differentiated yet but is likely not Pseudomonas per microbiology. Completed Zosyn IV x 7 days; will convert to Cipro to treat for bacteremia. If BC results from 05/06 +Pseudomonas, will need to re-discuss abx plan as outpatient. Repeat BC are negative. (3) Metabolic encephalopathy: Related to acute UTI; his is concerned that confusion has not improved. May be related to hospital delirium. Repeat head CT is negative. Repeat UC negative. Confusion improved on day of discharge. (4) Indwelling Gupta catheter present: Exchanged in the ER. (5) Paroxysmal A-fib: Continued Xarelto and Digoxin as prescribed (Dig level was 1.0) (6) Depression: Continued home Lexapro as prescribed. (7) Esophageal reflux: PPI daily. (8) Post-traumatic paraplegia: Monitored; wound nurse following for management of ostomy and wounds. Discharged to home on 05/15/19 with home hospice. Total Time Total Time Spent Total Time Spent (In Minutes): >30 minutes Total Time Includes: Examination of the Patient, Discharge Planning, Medication Reconciliation, Communication With Other Providers and Other Discharge Plan Discharge Items Patient Disposition: Hospice - Home Reason For Visit: PSEUDOMONAS UTI Discharge Diagnosis: Pseudomonas, Enterococcus UTI and Gram negative Bacteremia Condition on Discharge: Fair Goals: You have been hospitalized for an acute medical problem. During your stay at [facility], we have made an effort to correct the problem that brought you to the hospital while keeping you as comfortable as possible. Medications were used to bring your condition under control and your discharge instructions will include directions for any medications you should take after leaving the hospital. Please make sure you see your Primary Care Provider as part of your follow up plan. Activity: As commented below Exercise/Sports: As tolerated Non-emergency contact: Primary Care Provider Call non-emergency contact if: you have any medication questions, your symptoms worsen and you have a fever Follow-up/Referrals: Iam Yang MD [Primary Care Provider] - Diet: Heart Healthy Addtl Attending Provider Instructions: 1. UTI/Gram negative bacteremia * Please continue Ciprofloxacin 500 mg twice daily for a 7 day course. * Please follow up with primary care provider to discuss results of pending blood cultures/repeat urine culture. Pending Studies at Discharge: Yes Studies:: Blood cultures: gram neg bacilli. UC pending. Stand-Alone Forms: My [facility] [employer] Limited Medications and DC Order Prescriptions: New ciprofloxacin HCl 500 mg Tablet 500 mg PO BID 7 Days Qty: 14 RF: 0 Continued atorvastatin 40 mg tablet 40 mg PO QAM RF: 0 albuterol sulfate 2.5 mg /3 mL (0.083 %) solution for nebulization 2.5 mg inhalation Q6H PRN (Reason: Shortness Of Breath Or Wheezing) RF: 0 oxybutynin chloride 10 mg tablet extended release 24hr 10 mg PO QAM RF: 0 omeprazole 40 mg capsule,delayed release(DR/EC) 40 mg PO QAM RF: 0 albuterol sulfate 90 mcg/actuation HFA aerosol inhaler 1 - 2 puff INHALATION Q6H PRN (Reason: Shortness Of Breath Or Wheezing) RF: 0 escitalopram oxalate 10 mg tablet 10 mg PO QAM RF: 0 Symbicort 160-4.5 mcg/actuation HFA aerosol inhaler 1 puff INHALATION BID PRN (Reason: Shortness Of Breath) RF: 0 nystatin 100,000 unit/gram powder 1 applic TOPICAL TID RF: 0 coenzyme Q10 [CoQ-10] 100 mg Capsule 100 mg PO HS RF: 0 cholecalciferol (vitamin D3) [Vitamin D3] 25 mcg (1,000 unit) Tablet 1,000 unit PO QAM RF: 0 Lactinex 1 million cell Tablet,Chewable 1 tab PO QAM RF: 0 krill oil 500 mg Capsule 500 mg PO QAM RF: 0 multivitamin Tablet 1 tab PO HS RF: 0 guaifenesin [Mucinex] 600 mg Tablet Extended Release 12hr 600 mg PO Q12H PRN (Reason: Congestion) RF: 0 fluticasone propionate [Flonase Allergy Relief] 50 mcg/actuation [place],Suspension 2 spray INTRANASAL DAILY PRN (Reason: Allergy Symptoms) RF: 0 Changed Xarelto 20 mg tablet 15 mg PO HS Qty: 0 RF: 0 Discontinued digoxin 125 mcg (0.125 mg) tablet 125 mcg PO QAM RF: 0 Discharge Orders: Discharge Order (Routine); Ordered 05/15/19 Ordered By: Jessa Falk Admission Data Admit Date/Time: 05/06/19 23:19 Attending Provider: Max Mclean Admit Provider: Burt Lamas Primary Care Provider: Iam Yang Other Providers: Sachin Palafox Other Interventions: Discharge Summary Assessment (RN) Last Done: 05/15/19 12:33 Coding Level of Care Code D/C Day Management >30 mins Diagnoses UTI (urinary tract infection) T83.511A; N39.0 Encounter type: initial encounter Indwelling urinary catheter type: indwelling urethral catheter Urinary tract infection type: catheter-associated UTI Gram-negative bacteremia R78.81 Metabolic encephalopathy G93.41 Indwelling Gupta catheter present Z96.0 Paroxysmal A-fib I48.0 Depression F32.9 Esophageal reflux K21.9 Post-traumatic paraplegia T14.90XS
== END 2019-05-15 15:30 | disposition hospice, home (50) | DRG 698 ==
LOC: ED 19:11 → SUATTDRO 23:19 → 4W 23:19

== ENCOUNTER 2019-05-18 06:47 | Inpatient (IN) ==
[2019-05-18] MEDS: SODIUM CHLORIDE 0.9% 1000ML 1,000 ML IV SCH ×2 (07:27→18:58)
[2019-05-18 07:40] LABS: Basophils # (auto) 0.05 K/uL (0-0.2); Basophils % (auto) 0.5 %; Eosinophils # (auto) 0.98 K/uL (0-0.5); Eosinophils % (auto) 10.7 %; Hematocrit (blood only) 39.3 % (42-52); Hemoglobin 13.5 g/dL (14.0-18.0); Immature Granulocytes # (auto) 0.04 K/uL (0.00-0.02); Immature Granulocytes % (auto) 0.4 %; Lymphocytes # (auto) 1.08 K/uL (1.2-3.4); Lymphocytes % (auto) 11.8 %; Mean Corpuscular Hemoglobin 30.8 pg (25-34); Mean Corpuscular Hgb Conc 34.4 g/dL (32-36); Mean Corpuscular Volume 89.5 fL (80-100); Mean Platelet Volume 9.5 fL (7.4-10.4); Monocytes # (auto) 0.88 K/uL (0.11-0.59); Monocytes % (auto) 9.6 %; Neutrophils # (auto) 6.09 K/uL (1.4-6.5); Platelet Count 231 K/uL (130-400); RDW Coefficient of Variation 13.6 % (11.5-14.5); Red Blood Count 4.39 M/uL (4.7-6.1); White Blood Count 9.12 K/uL (4.8-10.8)
[2019-05-18 07:47] LABS: Base Excess VBG 6.2 mEq/L; HCO3 VBG 34 mmol/L; PCO2 VBG 66 mmHg (38-50); PO2 VBG 25 mmHg; pH VBG 7.33 (7.36-7.41)
[2019-05-18 07:50] LABS: INR 1.2 (0.9-1.1); Partial Thromboplastin Ratio 1.2; Partial Thromboplastin Time 33.4 Seconds (21.0-31.0); Prothrombin Time 12.4 Seconds (9.0-12.0)
[2019-05-18 07:51] LABS: Oxygen Saturation VBG < 60.0 %
[2019-05-18 07:53] LABS: Albumin Level 3.1 gm/dl (3.4-5.0); BUN Creatinine Ratio 14.2 (10-20); Calcium 9.7 mg/dl (8.5-10.1); Creatinine Clr Calc Pharmacy 39.6 ml/min; Est GFR (African American) 79.9; Est GFR (Non-African American) 68.9; Magnesium 1.7 mg/dl (1.8-2.4); Potassium 4.1 mmol/L (3.5-5.1)
[2019-05-18 07:57] LABS: Albumin Globulin Ratio 0.6 (0.9-2); Bilirubin,Total 0.4 mg/dl (0.2-1); Globulin 5.2 gm/dl (2.5-4.0); Total Protein 8.3 gm/dl (6.4-8.2); Troponin I 0.036 ng/ml (0-0.045)
[2019-05-18 08:02] LABS: Appearance Urine Clear (Clear); Bacteria Urine Automated Negative (Negative); Bilirubin Urine Negative (Negative); Blood Urine Trace (Negative); Color Urine Yellow; Epithelial Cell Urine Auto 20-30 /lpf (0-5); Glucose Urine UA Negative (Negative); Ketones Urine Negative (Negative); Leukocyte Esterase Urine 2+ (Negative); Nitrite Urine Negative (Negative); Protein Urine Trace (Negative); RBC Urine Automated 0-4 /hpf (0-4); Specific Gravity Urine 1.014 (1.000-1.030); Urobilinogen Urine Negative (Negative)
--- NOTE | 2019-05-18 08:02 | XRay Report ---
SINGLE VIEW CHEST CLINICAL HISTORY: Sepsis. FINDINGS: 2 AP, portable, upright chest radiographs are compared to study dated 05/06/2019 and correla charly with chest CT dated 07/25/2017. The examination is degraded by portable technique and patient rota tion. A 2-lead cardiac pacemaker is unchanged in position and partially obscures the left mid chest. The heart is enlarged and there is atherosclerotic calcification of the thoracic aorta. Enlargement o f the central pulmonary arteries indicates pulmonary artery hypertension. The pulmonary vasculature i s noncongested. Advanced emphysema and chronic interstitial thickening are similar to previous. No ai rspace consolidation or large pleural effusion is identified. No pneumothorax is seen. The skeletal s tructures are osteopenic. Extensive thoracolumbar fusion hardware is in place. IMPRESSION: 1. Cardiomegaly and cardiac pacemaker. There is no radiographic evidence of congestive failure. 2. Advanced emphysema. 3. No airspace consolidation or large pleural effusion is identified. Electronically signed by: Keny Shah M.D. 05/18/2019 8:00 AM
[2019-05-18 08:18] LABS: Influenza A virus by PCR Neg for Influ A (Neg); Influenza B virus by PCR Neg for Influ B (Neg)
[2019-05-18] MEDS ORDERED: ALBUT/IPRATROP 3MG/0.5MG NEB 3 ML VIAL NEB ONE (08:27)
[2019-05-18] MEDS ORDERED: methylPREDNISolone 125 MG/2 ML VIAL IV STA (08:27)
[2019-05-18] MEDS ORDERED: LORazepam 0.5 MG/1 ML VIAL IV STA (08:31)
[2019-05-18] MEDS ORDERED: LORazepam 2 MG/4 ML VIAL ONE (08:32)
[2019-05-18] MEDS ORDERED: RAPID SEQUENCE INDUCTION BAG ONE (08:35)
[2019-05-18] MEDS ORDERED: OPTIRAY 320 125ml IV PRN (08:44)
--- NOTE | 2019-05-18 09:04 | Critical Care Consultation ---
Date of Consultation May 18, 2019 Assessment & Plan (1) Acute respiratory failure with hypoxia: CTA chest done 05/18/2019 personally reviewed: There is chronic left lower PE. Severe emphysema. There is aspirated material present in the right main as well as right lower lobe bronchus with related partial collapse/atelectasis of the right lower lobe. EKG: Poor quality, sinus rhythm with first-degree AV block, normal axis, T wave flattening appreciated on the lateral leads. No ST elevations. -- VDRF secondary to acute hypoxic respiratory failure Likely secondary to aspiration pneumonia Follow-up septic work-up. Give antibiotics covering anaerobes Continue with ventilatory support Keep RASS -1 Daily sedation holidays and SBT's Chlorhexidine mouthwash We will bronc the patient to see if he can take out the materials aspirated. As there is right lung volume loss especially of the right lower lobe --History of chronic UTI Secondary to indwelling Gupta secondary to paraplegia and neurogenic bladder With last treatment being done on 05/14/2019 Follow-up urine culture Continue with antibiotics --COPD with emphysema Keep O2 saturation between 88 to 92% Continue with inhaled bronchodilators --Systolic CHF Ejection fraction 30 to 35% Strict in and out --Paroxysmal A. fib with history of PE On CT a patient has evidence of chronic PE on the left lower lobe Continue with Xarelto --DVT prophylaxis On Xarelto (2) Aspiration pneumonia: (3) COPD with emphysema: (4) Paraplegia: (5) History of pulmonary embolism: History of Present Illness History of Present Illness 88-year-old male with past medical history of paraplegia status post fall 15 years ago, history of recurrent UTI secondary to chronic indwelling Gupta with last admission being on 05/06 last dose of Zosyn being on 05/14/19 apparently was discharged on hospice, patient also has history of paroxysmal A. fib, COPD with emphysema, systolic CHF ejection fraction 30 to 35% status post ICD 2008, PE diagnosed 07/2017 on Xarelto at home, hypertension. As per the they have not made the decision yet regarding his hospice. Patient came into the hospital because of respiratory distress that started skin washer. When the patient said to his that he is having difficulty breathing. give the patient Symbicort inhaler which relieved him a little bit. But at that he complained again of shortness of breath for which she was brought to the ED. In the ED patient saturation went up to low 70s for which she was put on BiPAP and given a dose of Ativan while using the BiPAP. He again desaturated on BiPAP and plan to intubate was made by the ED. No fever or chills. No cough, no night sweats, no chest pain. Had discussion with regarding the plan of care. As per the patient did not want any aggressive measures to be done. Patient is already intubated right now. will make decision regarding CODE STATUS after talking to the family. Patient was already intubated at the time of examination. History obtained from ED notes, previous charts and . Allergies Allergy/AdvReac Type Severity Reaction Status Date / Time banana Allergy Mild Abdominal Verified 04/30/19 18:13 Pain nitrofurantoin Allergy Unknown Unknown Verified 04/30/19 18:13 Sulfa (Sulfonamide Allergy Unknown Unknown Verified 04/30/19 18:13 Antibiotics) NSAIDS (Non-Steroidal AdvReac Severe internal Verified 04/30/19 18:13 Anti-Inflamma bleeding Food Allergy Severe ANAPHYLAXIS Uncoded 04/30/19 18:13 WITH RADISHES/ DIFFICULTY BREATHING HORSERADISH Home Medications Home Medications Medication Instructions Recorded Confirmed Type Lactinex 1 tab PO QAM 04/30/19 05/06/19 History Symbicort 1 puff INHALATION BID PRN 04/30/19 05/06/19 History albuterol sulfate 1 - 2 puff INHALATION Q6H PRN 04/30/19 05/06/19 History albuterol sulfate 2.5 mg INHALATION Q6H PRN 04/30/19 05/06/19 History atorvastatin 40 mg PO QAM 04/30/19 05/06/19 History cholecalciferol (vitamin D3) 1,000 unit PO QAM 04/30/19 05/06/19 History [Vitamin D3] coenzyme Q10 [CoQ-10] 100 mg PO HS 04/30/19 05/06/19 History escitalopram oxalate 10 mg PO QAM 04/30/19 05/06/19 History krill oil 500 mg PO QAM 04/30/19 05/06/19 History nystatin 1 applic TOPICAL TID 04/30/19 05/06/19 History omeprazole 40 mg PO QAM 04/30/19 05/06/19 History oxybutynin chloride 10 mg PO QAM 04/30/19 05/06/19 History fluticasone propionate [Flonase 2 spray INTRANASAL DAILY PRN 05/06/19 05/06/19 History Allergy Relief] guaifenesin [Mucinex] 600 mg PO Q12H PRN 05/06/19 05/06/19 History multivitamin 1 tab PO HS 05/06/19 05/06/19 History ciprofloxacin HCl 500 mg PO BID 7 Days #14 tab 05/15/19 Rx rivaroxaban [Xarelto] 15 mg PO PM #30 tab 05/16/19 Rx Patient History Medical History Acrochordon Acute UTI (Inactive) Allergic rhinitis Bacteremia Blister of foot Bloating Breast lump C. 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) COPD (chronic obstructive pulmonary disease) (Chronic) Coronary artery disease, occlusive (Chronic) Decubitus ulcer of sacral region Diarrhea Elevated prostate specific antigen (PSA) Esophageal reflux (Acute) Family history of cancer (10/26/12) Folliculitis Herpes zoster Hiatal hernia (Acute) History of pseudomembranous enterocolitis History of skin pruritus Hospital discharge follow-up Hx pulmonary embolism (Chronic) Hyperlipidemia (Acute) Hyponatremia Hypotension ICD (implantable cardioverter-defibrillator) in place (Acute) Incontinence Influenza Influenza A Ischemic cardiomyopathy (Chronic) Left ankle injury Muscle spasm Myocardial infarction Neoplasm of uncertain behavior of skin Neurogenic bladder (Chronic) Pacemaker (Chronic) Paraplegia (Resolved 05/20/12) Paroxysmal atrial fibrillation (Chronic) Personal history of urinary (tract) infection Pneumonia Post-traumatic paraplegia (Chronic) Pulmonary hypertension (Acute) Pyelonephritis Rash Reactive depression (situational) (Acute) Seborrheic keratosis Seborrheic keratosis, inflamed Sensorineural hearing loss (SNHL) of both ears (Acute) Sepsis Sepsis Sepsis due to Pseudomonas aeruginosa Shortness of breath SIRS (systemic inflammatory response syndrome) Systemic inflammatory response syndrome (SIRS) due to infectious process without acute organ dysfunction Urinary retention (Resolved) Vasovagal syncope Viral warts Wound, open Surgical History History of ankle surgery History of back surgery History of blood transfusion two within the last 10 years History of ileostomy History of partial colectomy Family History Other No pertinent family history Social History Preferred Language: Urdu Communication Ability: Impaired Visual Impairment: No Limitations Hearing Ability: Use of Hearing Aid Herb Grower Required: No Beliefs That Will Affect Care: None marital status: Current Living Situation: Spouse Current Living Situation Comment: previous admission sent home with hospice care current occupational status: retired Other Information That Helps Us Care for You: No Feels Safe at Home: Yes Smoking Status: Never smoker Second Hand Exposure: No ; Hx Alcohol Use: No Hx Substance Use: No Childhood Exposure to Second-Hand Smoke: No Diet Comment: regular Dental Care, Regularly: No Physical Activity Frequency: Does not Exercise Physical Activity Frequency Comment: due to physical condition Seatbelt Use: always Sunscreen Use: No Review of Systems Review of Systems: Unobtainable due to endotracheal tube Physical Exam Physical Exam: Constitutional: No acute distress, intubated, sedated HEENT: PERRLA, ETT Respiratory system: Decreased air entry bilaterally, positive right lower lobe crackles, no wheeze, no rhonchi CVS: S1-S2 positive, no murmurs or gallops, tachycardia Abdomen: Soft, nontender, nondistended, positive bowel sounds x4 Extremities: +2 pulses bilaterally radialis/ dorsalis pedis, no cyanosis, no edema Neuro: Patient was paralyzed for intubation. Psych: Unable to assess G/U: Positive Gupta Skin: no rashes, warm and dry Lymphatic: no cervical or axillary lymphadenopathy Results & Data ([facility]) Vital Signs (Past 12 Hours) Vital Signs Temp Pulse Pulse Resp BP BP Pulse Ox 05/18/19 07:58 68 18 132/75 97 05/18/19 07:13 98 05/18/19 07:01 36.9 C 75 18 144/76 H 95 05/18/19 06:31 97 05/18/19 07:20 05/18/19 07:20 Coding Level of Care Code Critical Care 1st 30-74 mins Diagnoses Acute respiratory failure with hypoxia J96.01 Aspiration pneumonia J69.0 COPD with emphysema J43.9 Paraplegia G82.20 History of pulmonary embolism Z86.711 Time Spent (min) 40
[2019-05-18] MEDS ORDERED: PIPERACILLIN/TAZOBACTAM 4.5 GM/120 ML BAG IV ONE (09:11)
[2019-05-18] MEDS ORDERED: PIPERACILL/TAZOBAC CONSULT ACTIVE PRN ×2 (09:11→09:55)
[2019-05-18] MEDS ORDERED: propofoL 1,000 MG/100 ML VIAL IV SCH (09:15)
--- NOTE | 2019-05-18 09:22 | CT Scan Report ---
CT ANGIOGRAM OF THE CHEST CLINICAL HISTORY: Dyspnea. COMPARISON STUDY: Chest x-ray dated 05/18/2019. Chest CT dated 07/25/2017. TECHNIQUE: Following the IV administration of 119 cc of Optiray 320, CT angiogram of the chest was pe rformed from the upper abdomen to the thoracic inlet utilizing the pulmonary embolus protocol. Images are reviewed in the axial, sagittal, and coronal planes. 3-D MIPS images are created and assessed. I V contrast was administered without complication. A dose lowering technique was utilized adhering to the principles of ALARA. The examination is degraded by motion artifact, as well as by streak artifa ct from the arms which could not be elevated above the chest and metallic orthopedic spinal hardware. CT DOSE: 420.06 mGy.cm FINDINGS: Thyroid: Imaged portions of the thyroid gland are normal in size and attenuation. Thoracic aorta: There is atherosclerotic calcification of the thoracic aorta, which is normal in denzel yemi and demonstrates standard 3-vessel arch anatomy. No dissection is seen. Pulmonary vasculature: The main pulmonary arteries are mildly dilated suggesting pulmonary artery hyp ertension. There is a small volume of chronic thrombus present within the distal left main pulmonary artery. This extends into the left lower lobe pulmonary artery. Trace chronic thrombus is also presen t within a segmental branch of the right lower lobe pulmonary artery (axial image #109). There is no evidence of acute pulmonary embolus within the main, lobar, or segmental pulmonary branches to sugges t pulmonary embolus. Heart: A 2-lead cardiac pacemaker is present in the left chest wall. The heart is enlarged noting tra ce pericardial effusion. The coronary arteries are densely calcified. Lungs and pleural spaces: Moderate to advanced emphysematous change is identified. Fat-containing Boc hdalek hernias are seen bilaterally. Secretions are noted in the distal trachea, and the right mainst em bronchus. There is near complete occlusion of several right lower lobe airways. Debris/mucus plugg ing is also identified within the right middle lobe airways. There are trace pleural effusions and de pendent atelectasis. No airspace consolidation is seen typical for pneumonia. Foci of parenchymal sca rring are scattered throughout both lungs. A calcified granuloma is noted in the left upper lobe. Mediastinum: There are mildly enlarged mediastinal lymph nodes. A subcarinal node on image #156 measu res 1.9 cm in short axis. AP window nodes measure up to 1.6 cm in short axis. Mary: Clear. Axillae: There is no axillary lymphadenopathy. Upper abdomen: There is a moderate hiatal hernia. A 3.6 cm cyst is noted in the upper pole of the rig ht kidney. Skeletal structures: The skeletal structures are osteopenic. There is a mild chronic compression defo rmity of T11 with retropulsed fragments. There is extensive thoracolumbar spinal fusion hardware. The re are numerous healed left posterior rib fractures. No lytic or blastic bony lesions are seen. Soft tissues: Gynecomastia is noted. IMPRESSION: 1. Streak and motion compromised examination. 2. There is no evidence of acute pulmonary embolus in the main, lobar, or segmental pulmonary arterie s. 3. There is a small volume of chronic pulmonary embolus as above. The volume of chronic thrombus has decreased from 07/25/2017. 4. There is intraluminal debris within the trachea and right mainstem bronchus, with near complete op acification of several right lower lobe airways. Correlate clinically for evidence of aspiration. 5. There is no airspace consolidation typical for pneumonia. 6. Trace pleural effusions. 7. Moderate to advanced emphysema. 8. Cardiomegaly and cardiac pacemaker. 9. Moderate hiatal hernia. 10. Mildly enlarged mediastinal lymph nodes are nonspecific and similar to previous. 11. Additional findings as above. ACT 112: Negative or not required by law. Electronically signed by: Keny Shah M.D. 05/18/2019 9:21 AM
--- NOTE | 2019-05-18 09:26 | XRay Report ---
SINGLE VIEW CHEST CLINICAL HISTORY: Endotracheal tube placement. FINDINGS: An AP, portable, supine chest radiograph is compared to chest x-ray and chest CT performed earlier the same day 05/18/2019. The examination is degraded by portable technique and patient rotation . An endotracheal tube has been placed. The tip projects 3.5 cm above the grace.A 2-lead cardiac pac emaker is unchanged in position and partially obscures the left mid chest. The heart is enlarged and there is atherosclerotic calcification of the thoracic aorta. Enlargement of the central pulmonary ar teries indicates pulmonary artery hypertension. The pulmonary vasculature is noncongested. Advanced e mphysema and chronic interstitial thickening are similar to previous. No airspace consolidation or la rge pleural effusion is identified. Mild elevation of the right hemidiaphragm has increased from prev ious. No pneumothorax is seen. The skeletal structures are osteopenic. Extensive thoracolumbar fusion hardware is in place. IMPRESSION: 1. An endotracheal tube has been placed as above. 2. Cardiomegaly and cardiac pacemaker. There is no radiographic evidence of congestive failure. 3. Advanced emphysema. 4. No airspace consolidation or large pleural effusion is identified. 5. Mild elevation of the right hemidiaphragm has increased from previous. Electronically signed by: Keny Shah M.D. 05/18/2019 9:25 AM
--- NOTE | 2019-05-18 09:43 | History & Physical Report ---
Date of Service May 18, 2019 Assessment & Plan (1) Acute respiratory failure: - Admit to ICU - Pt initially presented to the ER maintaining O2 saturations on RA in high 90s, pt acutely dropped sats and RR increased. Pt was found in severe respiratory distress and was placed on BiPAP which slightly improved his status. The patient was intubated in the ER and has been moved over to the ICU. -CTA of the chest is negative for acute pulmonary PE in the main lobar or segmental pulmonary arteries, but there is small volume of chronic PE which has been present since July 2017. + Intraluminal debris within the trachea and right mainstem bronchus, near complete opacification of several right lower lobe airways, likely aspiration, trace pleural effusions, moderate to advanced emphysema, cardiomegaly and cardiac pacemaker, moderate hiatal hernia, mildly enlarged mediastinal lymph nodes nonspecific and similar to previous -Continue IV Zosyn for likely aspiration -Suction from ET tube producing thick yellow mucous -WBC = 9.12, afebrile since being here, continue to monitor -Once extubated will require speech therapy eval and treat, po care -Palliative care consulted for goals of care as pt was discharged 3 days ago on hospice, however now full code. -Received solumedrol 125 mg IV, duoneb, and IVFs at 125 mL the ER (2) Emphysema lung: - Advanced as per imaging (3) COPD (chronic obstructive pulmonary disease): - Advanced - Ventilator care (4) CAD (coronary artery disease): - Chronic, CAD with ischemic cardiomyopathy, HLD, paroxysmal A. 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 History of Present Illness Primary Care Provider: Iam Yang MD This is an 88 yo male, who was recently admitted to our service for urosepsis from 05/06 to 05/15, discharged home on hospice, who he presents today for acute shortness of breath and dyspnea. The patient is awake during my visit able to answer questions, knows where he is knows his name, states he is feeling a little bit better breathing loza at this point in time while wearing BiPAP. ER attending preparing to intubate the patient as his respiratory status is very fluctuant, and has been worsening over the last 30 minutes. ICU has been notified and the case has been discussed with them, patient will go to the ICU. The patient's expresses that she wants her to be a full code at this point in time. The patient other PMHx includes paraplegia s/p traumatic injury involving T10- T12 burst fracture with subsequent paralysis and neurogenic bladder, CAD with ischemic cardiomyopathy, s/p ICD in 2008, last echo showing LVEF 30 to 35%, HTN, HLD, paroxysmal A. fib, history of chronic pulmonary emboli 07/2017 on Xarelto with severe pulmonary hypertension, recurrent urinary tract infections, indwelling catheter, most recently admitted for UTI involving enterococcus and Pseudomonas, depression, GERD, history of metabolic encephalopathy related to acute UTI. Allergies Allergy/AdvReac Type Severity Reaction Status Date / Time banana Allergy Mild Abdominal Verified 04/30/19 18:13 Pain nitrofurantoin Allergy Unknown Unknown Verified 04/30/19 18:13 Sulfa (Sulfonamide Allergy Unknown Unknown Verified 04/30/19 18:13 Antibiotics) NSAIDS (Non-Steroidal AdvReac Severe internal Verified 04/30/19 18:13 Anti-Inflamma bleeding Food Allergy Severe ANAPHYLAXIS Uncoded 04/30/19 18:13 WITH RADISHES/ DIFFICULTY BREATHING HORSERADISH Home Medications Home Medications Medication Instructions Recorded Confirmed Type Lactinex 1 tab PO QAM 04/30/19 05/06/19 History Symbicort 1 puff INHALATION BID PRN 04/30/19 05/06/19 History albuterol sulfate 1 - 2 puff INHALATION Q6H PRN 04/30/19 05/06/19 History albuterol sulfate 2.5 mg INHALATION Q6H PRN 04/30/19 05/06/19 History atorvastatin 40 mg PO QAM 04/30/19 05/06/19 History cholecalciferol (vitamin D3) 1,000 unit PO QAM 04/30/19 05/06/19 History [Vitamin D3] coenzyme Q10 [CoQ-10] 100 mg PO HS 04/30/19 05/06/19 History escitalopram oxalate 10 mg PO QAM 04/30/19 05/06/19 History krill oil 500 mg PO QAM 04/30/19 05/06/19 History nystatin 1 applic TOPICAL TID 04/30/19 05/06/19 History omeprazole 40 mg PO QAM 04/30/19 05/06/19 History oxybutynin chloride 10 mg PO QAM 04/30/19 05/06/19 History fluticasone propionate [Flonase 2 spray INTRANASAL DAILY PRN 05/06/19 05/06/19 History Allergy Relief] guaifenesin [Mucinex] 600 mg PO Q12H PRN 05/06/19 05/06/19 History multivitamin 1 tab PO HS 05/06/19 05/06/19 History ciprofloxacin HCl 500 mg PO BID 7 Days #14 tab 05/15/19 Rx rivaroxaban [Xarelto] 15 mg PO PM #30 tab 05/16/19 Rx Past Med/Surg History Medical History Acrochordon Acute UTI (Inactive) Allergic rhinitis Bacteremia Blister of foot Bloating Breast lump C. 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) COPD (chronic obstructive pulmonary disease) (Chronic) Coronary artery disease, occlusive (Chronic) Decubitus ulcer of sacral region Diarrhea Elevated prostate specific antigen (PSA) Esophageal reflux (Acute) Family history of cancer (10/26/12) Folliculitis Herpes zoster Hiatal hernia (Acute) History of pseudomembranous enterocolitis History of skin pruritus Hospital discharge follow-up Hx pulmonary embolism (Chronic) Hyperlipidemia (Acute) Hyponatremia Hypotension ICD (implantable cardioverter-defibrillator) in place (Acute) Incontinence Influenza Influenza A Ischemic cardiomyopathy (Chronic) Left ankle injury Muscle spasm Myocardial infarction Neoplasm of uncertain behavior of skin Neurogenic bladder (Chronic) Pacemaker (Chronic) Paraplegia (Resolved 05/20/12) Paroxysmal atrial fibrillation (Chronic) Personal history of urinary (tract) infection Pneumonia Post-traumatic paraplegia (Chronic) Pulmonary hypertension (Acute) Pyelonephritis Rash Reactive depression (situational) (Acute) Seborrheic keratosis Seborrheic keratosis, inflamed Sensorineural hearing loss (SNHL) of both ears (Acute) Sepsis Sepsis Sepsis due to Pseudomonas aeruginosa Shortness of breath SIRS (systemic inflammatory response syndrome) Systemic inflammatory response syndrome (SIRS) due to infectious process without acute organ dysfunction Urinary retention (Resolved) Vasovagal syncope Viral warts Wound, open Surgical History History of ankle surgery History of back surgery History of blood transfusion two within the last 10 years History of ileostomy History of partial colectomy Family History Other No pertinent family history Social History Preferred Language: Danish Communication Ability: Impaired Visual Impairment: No Limitations Hearing Ability: Use of Hearing Aid Vascular Nurse Required: No Beliefs That Will Affect Care: None marital status: Current Living Situation: Spouse Current Living Situation Comment: previous admission sent home with hospice care current occupational status: retired Other Information That Helps Us Care for You: No Feels Safe at Home: Yes Smoking Status: Never smoker Second Hand Exposure: No ; Hx Alcohol Use: No Hx Substance Use: No Childhood Exposure to Second-Hand Smoke: No Diet Comment: regular Dental Care, Regularly: No Physical Activity Frequency: Does not Exercise Physical Activity Frequency Comment: due to physical condition Seatbelt Use: always Sunscreen Use: No Review of Systems Review of Systems: Constitutional: No fever, sweats or chills Eyes: No diplopia, no worsening or blurred vision ENT: normal hearing, no trouble swallowing Respiratory: + on bipap, breathing difficulty but better in comparison to a few minutes ago, + dyspnea at rest prior to ER Cardiovascular: No chest pain, tightness or palpitations Abdomen: No pain, nausea, vomiting, diarrhea or constipation Musculoskeletal: No joint pain, calf pain, swelling Neurologic: + paraplegic Psychiatric: + anxiety and depression Skin: No rash or itch Physical Exam Physical Exam: General: awake, alert, + moderate distress Head: Normocephalic, atraumatic ENT: PERRL, EOMI, pharynx not evaluated due to wearing BiPAP, ET tube being prepared to be placed at bedside Chest: + barrel chested, On BiPAP, diminished breath sounds throughout Cardiac: +Sinus tach, no murmur, no JVD, normal peripheral pulses, good capillary refill Abdominal: NABS x 4 quadrants, soft, nondistended, nontender to palpation, no rebound, guarding or tenderness Extremities: + atrophy of legs bilaterally, no peripheral edema or erythema Psych: Normal mood and affect Neuro: AAO x 3, follows commands, + paraplegic from waist down, speech is clear Results & Data Vital Signs (Past 12 Hours) Vital Signs Temp Pulse Pulse Resp BP BP Pulse Ox 05/18/19 07:58 68 18 132/75 97 05/18/19 07:13 98 05/18/19 07:01 36.9 C 75 18 144/76 H 95 05/18/19 06:31 97 Diagnostic Findings SINGLE VIEW CHEST CLINICAL HISTORY: Endotracheal tube placement. FINDINGS: An AP, portable, supine chest radiograph is compared to chest x-ray and chest CT performed earlier the same day 05/18/2019. The examination is degraded by portable technique and patient rotation. An endotracheal tube has been placed. The tip projects 3.5 cm above the grace.A 2-lead cardiac pacemaker is unchanged in position and partially obscures the left mid chest. The heart is enlarged and there is atherosclerotic calcification of the thoracic aorta. Enlargement of the central pulmonary arteries indicates pulmonary artery hyper tension. The pulmonary vasculature is noncongested. Advanced emphysema and chronic interstitial thickening are similar to previous. No airspace consolidation or large pleural effusion is identified. Mild elevation of the right hemidiaphragm has increased from previous. No pneumothorax is seen. The skeletal structures are osteopenic. Extensive thoracolumbar fusion hardware is in place. IMPRESSION: 1. An endotracheal tube has been placed as above. 2. Cardiomegaly and cardiac pacemaker. There is no radiographic evidence of congestive failure. 3. Advanced emphysema. 4. No airspace consolidation or large pleural effusion is identified. 5. Mild elevation of the right hemidiaphragm has increased from previous. CT ANGIOGRAM OF THE CHEST CLINICAL HISTORY: Dyspnea. COMPARISON STUDY: Chest x-ray dated 05/18/2019. Chest CT dated 07/25/2017. TECHNIQUE: Following the IV administration of 119 cc of Optiray 320, CT angiogram of the chest was performed from the upper abdomen to the thoracic inlet utilizing the pulmonary embolus protocol. Images are reviewed in the axial, sagittal, and coronal planes. 3-D MIPS images are created and assessed. IV contrast was administered without complication. A dose lowering technique was utilized adhering to the principles of ALARA. The examination is degraded by motion artifact, as well as by streak artifact from the arms which could not be elevated above the chest and metallic orthopedic spinal hardware. CT DOSE: 420.06 mGy.cm FINDINGS: Thyroid: Imaged portions of the thyroid gland are normal in size and attenuation. Thoracic aorta: There is atherosclerotic calcification of the thoracic aorta, which is normal in caliber and demonstrates standard 3-vessel arch anatomy. No dissection is seen. Pulmonary vasculature: The main pulmonary arteries are mildly dilated suggesting pulmonary artery hypertension. There is a small volume of chronic thrombus present within the distal left main pulmonary artery. This extends into the left lower lobe pulmonary artery. Trace chronic thrombus is also present within a segmental branch of the right lower lobe pulmonary artery (axial image #109). There is no evidence of acute pulmonary embolus within the main, lobar, or segmental pulmonary branches to suggest pulmonary embolus. Heart: A 2-lead cardiac pacemaker is present in the left chest wall. The heart is enlarged noting trace pericardial effusion. The coronary arteries are densely calcified. Lungs and pleural spaces: Moderate to advanced emphysematous change is identified. Fat-containing Bochdalek hernias are seen bilaterally. Secretions are noted in the distal trachea, and the right mainstem bronchus. There is near complete occlusion of several right lower lobe airways. Debris/mucus plugging is also identified within the right middle lobe airways. There are trace pleural effusions and dependent atelectasis. No airspace consolidation is seen typical for pneumonia. Foci of parenchymal scarring are scattered throughout both lungs. A calcified granuloma is noted in the left upper lobe. Mediastinum: There are mildly enlarged mediastinal lymph nodes. A subcarinal node on image #156 measures 1.9 cm in short axis. AP window nodes measure up to 1.6 cm in short axis. Mary: Clear. Axillae: There is no axillary lymphadenopathy. Upper abdomen: There is a moderate hiatal hernia. A 3.6 cm cyst is noted in the upper pole of the right kidney. Skeletal structures: The skeletal structures are osteopenic. There is a mild chronic compression deformity of T11 with retropulsed fragments. There is extensive thoracolumbar spinal fusion hardware. There are numerous healed left posterior rib fractures. No lytic or blastic bony lesions are seen. Soft tissues: Gynecomastia is noted. IMPRESSION: 1. Streak and motion compromised examination. 2. There is no evidence of acute pulmonary embolus in the main, lobar, or segmental pulmonary arteries. 3. There is a small volume of chronic pulmonary embolus as above. The volume of chronic thrombus has decreased from 07/25/2017. 4. There is intraluminal debris within the trachea and right mainstem bronchus, with near complete opacification of several right lower lobe airways. Correlate clinically for evidence of aspiration. 5. There is no airspace consolidation typical for pneumonia. 6. Trace pleural effusions. 7. Moderate to advanced emphysema. 8. Cardiomegaly and cardiac pacemaker. 9. Moderate hiatal hernia. 10. Mildly enlarged mediastinal lymph nodes are nonspecific and similar to previous. 11. Additional findings as above. ACT 112: Negative or not required by law. Electronically signed by: Keny Shah M.D. 05/18/2019 9:21 AM Code Status & VTE Plan Code Status Full code VTE Prophylaxis Plan VTE Prophylaxis will be ordered: Yes Supervising Physician Co-Signing Physician Notes patient seen in the ED w/ ED attending and hospitalist PA. agree with indication to semi-emergent intubation for mechanical ventilation pt was on BiPAP mask and about to be intubated so hx could not be obtained by myself I agree with note by Shannon Mendes PA-C. 88yo WM w/ T10 paraplegia and chronic indwelling cronin p/w acute respiratory failure and has had 2 episodes in ED of acute respiratory compromise despite BiPAP. Has hx of resistant organisms with UTI. This is an 88 yo male, who was recently admitted to our service for urosepsis from 05/06 to 05/15, discharged home on hospice, who he presents today for acute shortness of breath and dyspnea. The patient is awake during my visit able to answer questions, knows where he is knows his name, states he is feeling a little bit better breathing loza at this point in time while wearing BiPAP. ER attending preparing to intubate the patient as his respiratory status is very fluctuant, and has been worsening over the last 30 minutes. ICU has been notified and the case has been discussed with them, patient will go to the ICU. The patient's expresses that she wants her to be a full code at this point in time. EXAM: BiPAP mask on acute labored respirations CV: reg. no murmur (but environmental noise is difficult to overcome) CHEST: clear but very decreased ABD: soft, NT Ext: no edema. acute respiratory failure r/o sepsis r/o UTI; CAUTI T10 paraplegia small PE on CTA but not likely cause of acute respiratory failure especially for pt maintained on AC. hypercoagulable state full code. I recommend revisiting this with and recommending DNR. palliative care consult critical care consult PG Care Time/CCT Total # of Minutes Spent Total Time Spent with Patient: Total time spent is greater than 50% in coordination of care (as documented) at patient's floor/unit and/or counseling patient: Coding Level of Care Code 80962 Initial Inpt Care Lvl 3 Diagnoses Acute respiratory failure J96.00 Emphysema lung J43.9 COPD (chronic obstructive pulmonary disease) J44.9 CAD (coronary artery disease) I25.10 Pacemaker Z95.0 ICD (implantable cardioverter-defibrillator) in place Z95.810 Ischemic cardiomyopathy I25.5 Paroxysmal atrial fibrillation I48.0 Hyperlipidemia E78.5 Post-traumatic paraplegia T14.90XS Neurogenic bladder N31.9 Chronic indwelling Cronin catheter Z96.0 Esophageal reflux K21.9 DVT prophylaxis Z29.9
[2019-05-18] MEDS ORDERED: ICU PROTOCOL FOR HYPERGLYCEMIA PRN (10:32)
[2019-05-18] MEDS ORDERED: ONDANSETRON INJ 2 MG/ML 2 ML VIAL IV PRN (10:32)
--- NOTE | 2019-05-18 11:06 | Procedure Note ---
Procedure Note Date of Service May 18, 2019 PREOPERATIVE DIAGNOSIS: Right lower lobe collapse with hypoxia POSTOPERATIVE DIAGNOSIS: Right lower lobe collapse with hypoxia PROCEDURE PERFORMED: Flexible fiberoptic bronchoscopy with bronchoalveolar lavage COMPLICATIONS: None. INDICATION: Right lower lobe collapse with hypoxia PROCEDURE: After obtaining an informed consent from the . The patient had appropriate oxygen. Patient was already intubated and was on propofol. Topical anesthesia with 1% lidocaine was applied to the trachea and grace. The trachea appeared normal.The bronchoscope was then advanced through the grace, which was sharp. The scope was then advanced into the right main stem and each segment, sub-segement in the right upper lobe. There where very thick secretions along with some food particle appreciated in the RBI obstructing the right lower lobe. There were no other findings including evidence of mass, anatomic distortions, or hemorrhage. The bronchoscope was subsequently withdrawn and advanced into the left mainstem. Again, each segment and subsegment was well visualized. No specific masses or other lesions were identified throughout the tracheobronchial tree on the left. There was minimal amount of thick secretion. Mucomyst 6 mL was introduced into the RBI and was lavaged and suctioned clear. The bronchoscope was then withdrawn to the mainstem. The area was suctioned clear. The bronchoscope was then withdrawn. The patient tolerated the procedure well without evidence of desaturation or complications. BAL will be sent for bacterial and fungal cultures. Recommendations: Follow-up chest x-ray post bronchoscopy. Coding CPT Codes Pulmonary/Thoracic - Pulmonary and Thoracic: 18771 Dx bronchoscopy/wash ([id number]) [facility] [place] Procedure Codes (Charges) Pulmonary/Thoracic Procedure 1: Pulmonary and Thoracic: 46854 Dx bronchoscopy/wash
--- NOTE | 2019-05-18 11:22 | Emergency Department Note ---
Entered by Roxanne Reyes acting as a scribe for Tenzin Garcia History of Present Illness General Chief complaint: Shortness of Breath/Dyspnea Stated complaint: Shortness of breath Time Seen by Provider: 05/18/19 07:05 Source: patient and family () Limitations: no limitations History of Present Illness Onset (ago): hour(s) 2 Location: chest Pain Consistency: + now resolved Current Pain Intensity: 0 Quality: + other (SOB) Relieved By: + other (Symbicort) Associated symptoms: no chest pain and no shortness of breath The patient is an 88 year old male who presents to the Emergency Room with complaints of now resolved SOB that occurred this morning at 04:45, about 2 hours ago. His , at bedside, notes that he took Symbicort, and it provided relief. The patient denies any CP and SOB. He denies any pain. The patient's notes that the patient is on [facility]. Home Medications Home Medications Medication Instructions Recorded Confirmed Type Lactinex 1 tab PO QAM 04/30/19 05/06/19 History Symbicort 1 puff INHALATION BID PRN 04/30/19 05/06/19 History albuterol sulfate 1 - 2 puff INHALATION Q6H PRN 04/30/19 05/06/19 History albuterol sulfate 2.5 mg INHALATION Q6H PRN 04/30/19 05/06/19 History atorvastatin 40 mg PO QAM 04/30/19 05/06/19 History cholecalciferol (vitamin D3) 1,000 unit PO QAM 04/30/19 05/06/19 History [Vitamin D3] coenzyme Q10 [CoQ-10] 100 mg PO HS 04/30/19 05/06/19 History escitalopram oxalate 10 mg PO QAM 04/30/19 05/06/19 History krill oil 500 mg PO QAM 04/30/19 05/06/19 History nystatin 1 applic TOPICAL TID 04/30/19 05/06/19 History omeprazole 40 mg PO QAM 04/30/19 05/06/19 History oxybutynin chloride 10 mg PO QAM 04/30/19 05/06/19 History fluticasone propionate [Flonase 2 spray INTRANASAL DAILY PRN 05/06/19 05/06/19 History Allergy Relief] guaifenesin [Mucinex] 600 mg PO Q12H PRN 05/06/19 05/06/19 History multivitamin 1 tab PO HS 05/06/19 05/06/19 History ciprofloxacin HCl 500 mg PO BID 7 Days #14 tab 05/15/19 Rx rivaroxaban [Xarelto] 15 mg PO PM #30 tab 05/16/19 Rx Allergies Allergy/AdvReac Type Severity Reaction Status Date / Time banana Allergy Mild Abdominal Verified 04/30/19 18:13 Pain nitrofurantoin Allergy Unknown Unknown Verified 04/30/19 18:13 Sulfa (Sulfonamide Allergy Unknown Unknown Verified 04/30/19 18:13 Antibiotics) NSAIDS (Non-Steroidal AdvReac Severe internal Verified 04/30/19 18:13 Anti-Inflamma bleeding Food Allergy Severe ANAPHYLAXIS Uncoded 04/30/19 18:13 WITH RADISHES/ DIFFICULTY BREATHING HORSERADISH Past Med/Surg History Medical History Acrochordon Acute UTI (Inactive) Allergic rhinitis Bacteremia Blister of foot Bloating Breast lump C. 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) COPD (chronic obstructive pulmonary disease) (Chronic) Coronary artery disease, occlusive (Chronic) Decubitus ulcer of sacral region Diarrhea Elevated prostate specific antigen (PSA) Esophageal reflux (Acute) Family history of cancer (10/26/12) Folliculitis Herpes zoster Hiatal hernia (Acute) History of pseudomembranous enterocolitis History of skin pruritus Hospital discharge follow-up Hx pulmonary embolism (Chronic) Hyperlipidemia (Acute) Hyponatremia Hypotension ICD (implantable cardioverter-defibrillator) in place (Acute) Incontinence Influenza Influenza A Ischemic cardiomyopathy (Chronic) Left ankle injury Muscle spasm Myocardial infarction Neoplasm of uncertain behavior of skin Neurogenic bladder (Chronic) Pacemaker (Chronic) Paraplegia (Resolved 05/20/12) Paroxysmal atrial fibrillation (Chronic) Personal history of urinary (tract) infection Pneumonia Post-traumatic paraplegia (Chronic) Pulmonary hypertension (Acute) Pyelonephritis Rash Reactive depression (situational) (Acute) Seborrheic keratosis Seborrheic keratosis, inflamed Sensorineural hearing loss (SNHL) of both ears (Acute) Sepsis Sepsis Sepsis due to Pseudomonas aeruginosa Shortness of breath SIRS (systemic inflammatory response syndrome) Systemic inflammatory response syndrome (SIRS) due to infectious process without acute organ dysfunction Urinary retention (Resolved) Vasovagal syncope Viral warts Wound, open Surgical History History of ankle surgery History of back surgery History of blood transfusion two within the last 10 years History of ileostomy History of partial colectomy Family History Other No pertinent family history Social History Preferred Language: Martiniquais Communication Ability: Impaired Visual Impairment: No Limitations Hearing Ability: Use of Hearing Aid Washer Blanket Required: No Beliefs That Will Affect Care: None marital status: Current Living Situation: Spouse Current Living Situation Comment: previous admission sent home with hospice care current occupational status: retired Other Information That Helps Us Care for You: No Feels Safe at Home: Yes Smoking Status: Never smoker Second Hand Exposure: No ; Hx Alcohol Use: No Hx Substance Use: No Childhood Exposure to Second-Hand Smoke: No Diet Comment: regular Dental Care, Regularly: No Physical Activity Frequency: Does not Exercise Physical Activity Frequency Comment: due to physical condition Seatbelt Use: always Sunscreen Use: No Review of Systems See HPI for pertinent positives & negatives. and A total of 10 systems reviewed and were otherwise negative Physical Exam Vital Signs Vital Signs - 24 hr 05/18/19 06:31 05/18/19 07:01 05/18/19 07:13 Temperature 36.9 C Temperature Source Oral Pulse Rate 75 Pulse Rate [Apical] Pulse Rhythm [Apical] Pulse Strength [Apical] Respiratory Rate 18 Respiratory Effort / Characteristics Respiratory Depth Respiratory Pattern Blood Pressure 144/76 H Blood Pressure [Left Arm] Blood Pressure Mean 98 Blood Pressure Mean [Left Arm] Blood Pressure Position [Left Arm] Pulse Oximetry 97 95 98 Oxygen Delivery Method Nasal Cannula Nasal Cannula Nasal Cannula Oxygen Flow Rate 2 2 2 Fraction of Inspired Oxygen Sepsis Recent Fever Within 48 Hours No Sepsis Action Taken by Nursing No Action Required 05/18/19 07:58 05/18/19 08:30 05/18/19 08:34 Temperature Temperature Source Pulse Rate 125 H 128 H Pulse Rate [Apical] 68 125 H Pulse Rhythm [Apical] Pulse Strength [Apical] Respiratory Rate 18 32 H 30 H Respiratory Effort / Characteristics Spontaneous Labored Respiratory Depth Respiratory Pattern Tachypnea Blood Pressure Blood Pressure [Left Arm] 132/75 Blood Pressure Mean Blood Pressure Mean [Left Arm] 94 Blood Pressure Position [Left Arm] Pulse Oximetry 97 74 L 99 Oxygen Delivery Method Room Air BiPAP Oxygen Flow Rate Fraction of Inspired Oxygen 100 100 Sepsis Recent Fever Within 48 Hours Sepsis Action Taken by Nursing 05/18/19 08:40 05/18/19 08:42 05/18/19 08:56 Temperature Temperature Source Pulse Rate Pulse Rate [Apical] 123 H Pulse Rhythm [Apical] Regular Pulse Strength [Apical] Normal Respiratory Rate 20 Respiratory Effort / Characteristics Non-Labored Spontaneous Respiratory Depth Normal Respiratory Pattern Blood Pressure Blood Pressure [Left Arm] 158/84 H Blood Pressure Mean Blood Pressure Mean [Left Arm] 108 Blood Pressure Position [Left Arm] Lying Pulse Oximetry 98 97 Oxygen Delivery Method BiPAP Oxygen Flow Rate Fraction of Inspired Oxygen 70 40 100 Sepsis Recent Fever Within 48 Hours Sepsis Action Taken by Nursing 05/18/19 09:10 Temperature Temperature Source Pulse Rate Pulse Rate [Apical] 125 H Pulse Rhythm [Apical] Regular Pulse Strength [Apical] Normal Respiratory Rate 32 H Respiratory Effort / Characteristics Respiratory Depth Shallow Respiratory Pattern Blood Pressure Blood Pressure [Left Arm] 127/86 Blood Pressure Mean Blood Pressure Mean [Left Arm] 99 Blood Pressure Position [Left Arm] Lying Pulse Oximetry Oxygen Delivery Method BiPAP Oxygen Flow Rate Fraction of Inspired Oxygen Sepsis Recent Fever Within 48 Hours Sepsis Action Taken by Nursing GENERAL: He is oriented to person, place, and time. He appears well-developed and well-nourished. He does not appear distressed. HENT: Exam performed. - Head: Normocephalic and atraumatic. - Right Ear: External ear normal. No mastoid tenderness. - Left Ear: External ear normal. No mastoid tenderness. - Mouth/Throat: The oropharynx is clear and moist. No trismus in the jaw. No dental abscesses or uvula swelling. No oropharyngeal exudate or tonsillar abscesses. EYES: Conjunctivae and EOM are normal. Pupils are equal, round, and reactive to light. Right eye exhibits no discharge. Left eye exhibits no discharge. No scleral icterus. NECK: Normal range of motion. Neck supple. No JVD present. No spinous process tenderness present. No carotid bruit present. No rigidity. No tracheal deviation and normal range of motion present. No Brudzinski's sign and no Kernig's sign noted. CV: Normal rate, regular rhythm, normal heart sounds and intact distal pulses. There is no peripheral edema. Palpable radial pulses bue. PULM/CHEST: Effort normal and breath sounds normal. No respiratory distress. No stridor. He has no wheezes. Rhonchi bilaterally, and rales at the bases bilaterally. - Chest Wall: He exhibits no tenderness. ABD: The abdomen is soft. Bowel sounds are normal. He has no distension. No mass is present. There is no tenderness or pain on palpation. There is no rebound, no guarding, no Bartholomew's sign and no tenderness at McBurney's point. Rovsig neg ative. Ostomy bag. LYMPH: No cervical adenopathy. NEURO: Paralyzed from the waist down. Alert and oriented. SKIN: Skin is warm and dry. He is not diaphoretic. PSYCH: He has a normal mood and affect. Behavior is normal. Judgment and thought content normal. Procedures Intubation Time out performed: Yes sedative: Etomidate Mg Given: 20 paralytic: Succinylcholine Mg Given: 100 Laryngoscope: Ramin (3) ET Tube Size: 7.5 ET Tube Uncuffed: No Tube Placement Confirmation: visualized tube passing through cords, equal breath sounds bilaterally, no breath sounds over epigastrium and confirmation by capnometry Patient Tolerated Procedure: well Intubation Complications: none Course Course 0700: EMR reviewed. The patient is an oxygen-dependent paraplegic. He has had multiple visits for sepsis from an indwelling Gupta catheter. He was recently admitted on April 30, and he was discharged on May 16, 2 days ago, for sepsis. 0707: The patient was evaluated in room A02. A complete history and physical exam was performed. 0823: Called to bed by nursing. Patient developed acute respiratory distress. His oxygen saturation was 40% on the 2 L nasal cannula that he usually wears. Patient was switched to nonrebreather mask which improved his oxygen saturation to 60%. Patient's is at bedside. She states that the patient is a full code and if needed she does want the patient to be on ventilator and intubated if needed. Patient was started on BiPAP. The plan is is that if the patient does not tolerate BiPAP then we will attempt high flow nasal cannula and Vapotherm. If both of these noninvasive ventilation methods are not successful, then we will intubate the patient. Patient will also be given hour-long DuoNeb treatment as well as Solu-Medrol 125 mg. Patient appeared extremely anxious she was given 1 mg of Ativan IV push also. There is also concern for PE given the patient's recent hospitalization and immobilization. Patient be taken for stat CT of the chest once he is stabilized. Labs are within normal limits. Patient's VBG showed a pH of 7.33 and a PCO2 of 66. Chest x-ray showed advanced emphysema. 0845: Patient was moved to resuscitation bay. Upon arrival in resuscitation bay the patient's oxygen saturation improved into the 90s on BiPAP and he is still receiving hour-long DuoNeb treatment. Given the patient's acute respiratory distress, I conducted a bedside thoracic ultrasound which showed no pneumothorax bilaterally. Will discuss with hospitalist for admission and likely placement in the ICU. 0857: CTA of the chest reviewed by me showed no large PE. I spoke with Sunshine Mendes [facility], about the patients case. She will further evaluate the patient with Dr. Khoury. I spoke with Dr. Wilkins, Critical care medicine [facility], about the patients case. He will further evaluate the patient. 0914: Called to bed by nursing again. The patient is in the resuscitation bay and his oxygen saturation is down in the 60s while on the BiPAP. Patient is having extreme difficulty breathing. Patient's is at bedside and was again asked if the patient would want to be on ventilator which she stated yes. Given the low oxygen saturation while on BiPAP and the recurrence of respiratory distress, the patient was intubated. See procedure note. 0920: I reassessed the patient, and Dr. Wilkins was at bedside. We have reviewed the post intubation x-ray together which showed that the patient could have aspirated. Patient was given Zosyn IV piggyback in the emergency department. Administered Medications Etomidate (Amidate) 20 mg IV TODAY@0911 ONE; Protocol Stop: 05/19/19 09:12 Last Admin: 05/18/19 09:49 Dose: 20 mg Documented by: [id number] Sodium Chloride (Nss 1000ml) 1,000 mls @ 125 mls/hr IV .Q8H RONEL Stop: 06/17/19 07:14 Last Admin: 05/18/19 07:27 Dose: 125 mls/hr Documented by: [id number] Propofol (Diprivan) 1,000 mg in 100 mls @ 1.626 mls/hr IV .Q24H RONEL; Protocol Stop: 05/21/19 09:14 Last Admin: 05/18/19 09:18 Dose: 5 mcg/kg/min, 1.6 mls/hr Documented by: [id number] Cosigned by: [id number] Succinylcholine Chloride (Quelicin) 100 mg IV TODAY@0912 ONE; Protocol Stop: 05/19/19 09:13 Last Admin: 05/18/19 09:50 Dose: 100 mg Documented by: [id number] Discontinued Medications Albuterol (Duoneb) 12 ml NEB ONE ONE Stop: 05/18/19 08:28 Last Admin: 05/18/19 09:32 Dose: 12 ml Documented by: [id number] Piperacillin Sod/Tazobactam Sod (Zosyn) 4.5 gm in 120 mls @ 240 mls/hr IV NOW ONE Stop: 05/18/19 09:40 Last Infusion: 05/18/19 10:58 Dose: 0 mls/hr Documented by: [id number] Admin: 05/18/19 09:40 Dose: 240 mls/hr Documented by: [id number] Ioversol (Optiray 320 125ml) 119 ml IV ONCE PRN PRN Reason: Interaction Checking Stop: 05/22/19 08:43 Last Admin: 05/18/19 08:44 Dose: 119 ml Documented by: [id number] Methylprednisolone (Solumedrol) 125 mg IV NOW STA Stop: 05/18/19 08:28 Last Admin: 05/18/19 09:30 Dose: 125 mg Documented by: [id number] Critical Care Time Critical Care Time: Yes Total Critical Care Time: 89 I have personally spent 89 minutes of critical care time in the direct management of this patient. This includes bedside care, interpretation of diagnostic studies, and testing, discussion with consultants, patient, and family members, and other required patient management activities. This 89 minutes is in excess of all separately billable procedures. Medical Decision Making Medical Records Attestation: I reviewed the patient's medical records. Home Medications Current Medication List: was personally reviewed by me Laboratory Data Attestation: I reviewed the patient's lab results. Result diagrams: 05/18/19 07:20 05/18/19 07:20 Lab Results 05/18/19 05/18/19 05/18/19 Range/Units 07:20 07:20 07:20 WBC 9.12 (4.8-10.8) K/uL RBC 4.39 L (4.7-6.1) M/uL Hgb 13.5 L (14.0-18.0) g/dL Hct 39.3 L (42-52) % MCV 89.5 (80-100) fL MCH 30.8 (25-34) pg MCHC 34.4 (32-36) g/dL RDW Std Deviation 45.0 (36.4-46.3) fL RDW Coeff of Evelyne 13.6 (11.5-14.5) % Plt Count 231 (130-400) K/uL MPV 9.5 (7.4-10.4) fL Immature Gran % (Auto) 0.4 % Neut % (Auto) 67.0 % Lymph % (Auto) 11.8 % [place] % (Auto) 9.6 % Eos % (Auto) 10.7 % Baso % (Auto) 0.5 % Immature Gran # (Auto) 0.04 H (0.00-0.02) K/uL Neut # (Auto) 6.09 (1.4-6.5) K/uL Lymph # (Auto) 1.08 L (1.2-3.4) K/uL [place] # (Auto) 0.88 H (0.11-0.59) K/uL Eos # (Auto) 0.98 H (0-0.5) K/uL Baso # (Auto) 0.05 (0-0.2) K/uL ESR (0-14) mm/hr PT 12.4 H (9.0-12.0) Seconds INR 1.2 H (0.9-1.1) APTT 33.4 H (21.0-31.0) Seconds PTT Ratio 1.2 VBG pH (7.36-7.41) VBG pCO2 (38-50) mmHg VBG pO2 mmHg VBG HCO3 mmol/L VBG O2 Saturation % VBG Base Excess mEq/L Barometric Pressure mm/Hg Sodium 137 (136-145) mmol/L Potassium 4.1 (3.5-5.1) mmol/L Chloride 99 (98-107) mmol/L Carbon Dioxide 33 H (21-32) mmol/L Anion Gap 6.0 (3-11) BUN 14 (7-18) mg/dl Creatinine 0.97 (0.6-1.4) mg/dl Est Cr Clr Drug Dosing 39.6 ml/min Est GFR ( Amer) 79.9 Est GFR (Non-Af Amer) 68.9 BUN/Creatinine Ratio 14.2 (10-20) Glucose 131 H (70-99) mg/dl Lactate (0.4-2.0) mmol/L Calcium 9.7 (8.5-10.1) mg/dl Magnesium 1.7 L (1.8-2.4) mg/dl Total Bilirubin 0.4 (0.2-1) mg/dl AST 22 (15-37) U/L ALT 29 (12-78) U/L Alkaline Phosphatase 87 (45-117) U/L Troponin I 0.036 (0-0.045) ng/ml C-Reactive Protein (0-0.29) mg/dl Total Protein 8.3 H (6.4-8.2) gm/dl Albumin 3.1 L (3.4-5.0) gm/dl Globulin 5.2 H (2.5-4.0) gm/dl Albumin/Globulin Ratio 0.6 L (0.9-2) Procalcitonin (0-0.5) ng/ml Urine Color Urine Appearance (Clear) Urine pH (4.5-7.5) Ur Specific [place] (1.000-1.030) Urine Protein (Negative) Urine Glucose (UA) (Negative) Urine Ketones (Negative) Urine Blood (Negative) Urine Nitrite (Negative) Urine Bilirubin (Negative) Urine Urobilinogen (Negative) Ur Leukocyte Esterase (Negative) Urine WBC (Auto) (0-5) /hpf Urine RBC (Auto) (0-4) /hpf U Hyaline Cast (Auto) (0-5) /lpf U Epithel Cells (Auto) (0-5) /lpf Urine Bacteria (Auto) (Negative) Influenza Type A (PCR) (Neg) Influenza Type B (PCR) (Neg) 02/02/20 02/02/20 02/02/20 Range/Units 07:20 07:20 07:20 WBC (4.8-10.8) K/uL RBC (4.7-6.1) M/uL Hgb (14.0-18.0) g/dL Hct (42-52) % MCV (80-100) fL MCH (25-34) pg MCHC (32-36) g/dL RDW Std Deviation (36.4-46.3) fL RDW Coeff of Evelyne (11.5-14.5) % Plt Count (130-400) K/uL MPV (7.4-10.4) fL Immature Gran % (Auto) % Neut % (Auto) % Lymph % (Auto) % [place] % (Auto) % Eos % (Auto) % Baso % (Auto) % Immature Gran # (Auto) (0.00-0.02) K/uL Neut # (Auto) (1.4-6.5) K/uL Lymph # (Auto) (1.2-3.4) K/uL [place] # (Auto) (0.11-0.59) K/uL Eos # (Auto) (0-0.5) K/uL Baso # (Auto) (0-0.2) K/uL ESR 33 H (0-14) mm/hr PT (9.0-12.0) Seconds INR (0.9-1.1) APTT (21.0-31.0) Seconds PTT Ratio VBG pH (7.36-7.41) VBG pCO2 (38-50) mmHg VBG pO2 mmHg VBG HCO3 mmol/L VBG O2 Saturation % VBG Base Excess mEq/L Barometric Pressure mm/Hg Sodium (136-145) mmol/L Potassium (3.5-5.1) mmol/L Chloride (98-107) mmol/L Carbon Dioxide (21-32) mmol/L Anion Gap (3-11) BUN (7-18) mg/dl Creatinine (0.6-1.4) mg/dl Est Cr Clr Drug Dosing ml/min Est GFR ( Amer) Est GFR (Non-Af Amer) BUN/Creatinine Ratio (10-20) Glucose (70-99) mg/dl Lactate 2.1 H* (0.4-2.0) mmol/L Calcium (8.5-10.1) mg/dl Magnesium (1.8-2.4) mg/dl Total Bilirubin (0.2-1) mg/dl AST (15-37) U/L ALT (12-78) U/L Alkaline Phosphatase (45-117) U/L Troponin I (0-0.045) ng/ml C-Reactive Protein (0-0.29) mg/dl Total Protein (6.4-8.2) gm/dl Albumin (3.4-5.0) gm/dl Globulin (2.5-4.0) gm/dl Albumin/Globulin Ratio (0.9-2) Procalcitonin 0.06 (0-0.5) ng/ml Urine Color Urine Appearance (Clear) Urine pH (4.5-7.5) Ur Specific [place] (1.000-1.030) Urine Protein (Negative) Urine Glucose (UA) (Negative) Urine Ketones (Negative) Urine Blood (Negative) Urine Nitrite (Negative) Urine Bilirubin (Negative) Urine Urobilinogen (Negative) Ur Leukocyte Esterase (Negative) Urine WBC (Auto) (0-5) /hpf Urine RBC (Auto) (0-4) /hpf U Hyaline Cast (Auto) (0-5) /lpf U Epithel Cells (Auto) (0-5) /lpf Urine Bacteria (Auto) (Negative) Influenza Type A (PCR) (Neg) Influenza Type B (PCR) (Neg) 05/18/19 05/18/19 05/18/19 Range/Units 07:20 07:25 07:34 WBC (4.8-10.8) K/uL RBC (4.7-6.1) M/uL Hgb (14.0-18.0) g/dL Hct (42-52) % MCV (80-100) fL MCH (25-34) pg MCHC (32-36) g/dL RDW Std Deviation (36.4-46.3) fL RDW Coeff of Evelyne (11.5-14.5) % Plt Count (130-400) K/uL MPV (7.4-10.4) fL Immature Gran % (Auto) % Neut % (Auto) % Lymph % (Auto) % [place] % (Auto) % Eos % (Auto) % Baso % (Auto) % Immature Gran # (Auto) (0.00-0.02) K/uL Neut # (Auto) (1.4-6.5) K/uL Lymph # (Auto) (1.2-3.4) K/uL [place] # (Auto) (0.11-0.59) K/uL Eos # (Auto) (0-0.5) K/uL Baso # (Auto) (0-0.2) K/uL ESR (0-14) mm/hr PT (9.0-12.0) Seconds INR (0.9-1.1) APTT (21.0-31.0) Seconds PTT Ratio VBG pH 7.33 L (7.36-7.41) VBG pCO2 66 H (38-50) mmHg VBG pO2 25 mmHg VBG HCO3 34 mmol/L VBG O2 Saturation < 60.0 % VBG Base Excess 6.2 mEq/L Barometric Pressure 723.2 mm/Hg Sodium (136-145) mmol/L Potassium (3.5-5.1) mmol/L Chloride (98-107) mmol/L Carbon Dioxide (21-32) mmol/L Anion Gap (3-11) BUN (7-18) mg/dl Creatinine (0.6-1.4) mg/dl Est Cr Clr Drug Dosing ml/min Est GFR ( Amer) Est GFR (Non-Af Amer) BUN/Creatinine Ratio (10-20) Glucose (70-99) mg/dl Lactate (0.4-2.0) mmol/L Calcium (8.5-10.1) mg/dl Magnesium (1.8-2.4) mg/dl Total Bilirubin (0.2-1) mg/dl AST (15-37) U/L ALT (12-78) U/L Alkaline Phosphatase (45-117) U/L Troponin I (0-0.045) ng/ml C-Reactive Protein 0.60 H (0-0.29) mg/dl Total Protein (6.4-8.2) gm/dl Albumin (3.4-5.0) gm/dl Globulin (2.5-4.0) gm/dl Albumin/Globulin Ratio (0.9-2) Procalcitonin (0-0.5) ng/ml Urine Color Urine Appearance (Clear) Urine pH (4.5-7.5) Ur Specific [place] (1.000-1.030) Urine Protein (Negative) Urine Glucose (UA) (Negative) Urine Ketones (Negative) Urine Blood (Negative) Urine Nitrite (Negative) Urine Bilirubin (Negative) Urine Urobilinogen (Negative) Ur Leukocyte Esterase (Negative) Urine WBC (Auto) (0-5) /hpf Urine RBC (Auto) (0-4) /hpf U Hyaline Cast (Auto) (0-5) /lpf U Epithel Cells (Auto) (0-5) /lpf Urine Bacteria (Auto) (Negative) Influenza Type A (PCR) Neg for Influ A (Neg) Influenza Type B (PCR) Neg for Influ B (Neg) 05/18/19 Range/Units 07:50 WBC (4.8-10.8) K/uL RBC (4.7-6.1) M/uL Hgb (14.0-18.0) g/dL Hct (42-52) % MCV (80-100) fL MCH (25-34) pg MCHC (32-36) g/dL RDW Std Deviation (36.4-46.3) fL RDW Coeff of Evelyne (11.5-14.5) % Plt Count (130-400) K/uL MPV (7.4-10.4) fL Immature Gran % (Auto) % Neut % (Auto) % Lymph % (Auto) % [place] % (Auto) % Eos % (Auto) % Baso % (Auto) % Immature Gran # (Auto) (0.00-0.02) K/uL Neut # (Auto) (1.4-6.5) K/uL Lymph # (Auto) (1.2-3.4) K/uL [place] # (Auto) (0.11-0.59) K/uL Eos # (Auto) (0-0.5) K/uL Baso # (Auto) (0-0.2) K/uL ESR (0-14) mm/hr PT (9.0-12.0) Seconds INR (0.9-1.1) APTT (21.0-31.0) Seconds PTT Ratio VBG pH (7.36-7.41) VBG pCO2 (38-50) mmHg VBG pO2 mmHg VBG HCO3 mmol/L VBG O2 Saturation % VBG Base Excess mEq/L Barometric Pressure mm/Hg Sodium (136-145) mmol/L Potassium (3.5-5.1) mmol/L Chloride (98-107) mmol/L Carbon Dioxide (21-32) mmol/L Anion Gap (3-11) BUN (7-18) mg/dl Creatinine (0.6-1.4) mg/dl Est Cr Clr Drug Dosing ml/min Est GFR ( Amer) Est GFR (Non-Af Amer) BUN/Creatinine Ratio (10-20) Glucose (70-99) mg/dl Lactate (0.4-2.0) mmol/L Calcium (8.5-10.1) mg/dl Magnesium (1.8-2.4) mg/dl Total Bilirubin (0.2-1) mg/dl AST (15-37) U/L ALT (12-78) U/L Alkaline Phosphatase (45-117) U/L Troponin I (0-0.045) ng/ml C-Reactive Protein (0-0.29) mg/dl Total Protein (6.4-8.2) gm/dl Albumin (3.4-5.0) gm/dl Globulin (2.5-4.0) gm/dl Albumin/Globulin Ratio (0.9-2) Procalcitonin (0-0.5) ng/ml Urine Color Yellow Urine Appearance Clear (Clear) Urine pH 6.0 (4.5-7.5) Ur Specific [place] 1.014 (1.000-1.030) Urine Protein Trace H (Negative) Urine Glucose (UA) Negative (Negative) Urine Ketones Negative (Negative) Urine Blood Trace H (Negative) Urine Nitrite Negative (Negative) Urine Bilirubin Negative (Negative) Urine Urobilinogen Negative (Negative) Ur Leukocyte Esterase 2+ H (Negative) Urine WBC (Auto) 10-30 H (0-5) /hpf Urine RBC (Auto) 0-4 (0-4) /hpf U Hyaline Cast (Auto) 1-5 (0-5) /lpf U Epithel Cells (Auto) 20-30 H (0-5) /lpf Urine Bacteria (Auto) Negative (Negative) Influenza Type A (PCR) (Neg) Influenza Type B (PCR) (Neg) Imaging Data Radiologist's Impression: Radiology results as stated below per my review and the radiologist's interpretation: SINGLE VIEW CHEST CLINICAL HISTORY: Sepsis. FINDINGS: 2 AP, portable, upright chest radiographs are compared to study dated 05/06/2019 and correlated with chest CT dated 07/25/2017. The examination is degraded by portable technique and patient rotation. A 2-lead cardiac pacemaker is unchanged in position and partially obscures the left mid chest. The heart is enlarged and there is atherosclerotic calcification of the thoracic aorta. Enlargement of the central pulmonary arteries indicates pulmonary artery hypertension. The pulmonary vasculature is noncongested. Advanced emphysema and chronic interstitial thickening are similar to previous. No airspace consolidation or large pleural effusion is identified. No pneumothorax is seen. The skeletal structures are osteopenic. Extensive thoracolumbar fusion hardware is in place. IMPRESSION: 1. Cardiomegaly and cardiac pacemaker. There is no radiographic evidence of congestive failure. 2. Advanced emphysema. 3. No airspace consolidation or large pleural effusion is identified. Electronically signed by: Keny Shah M.D. 05/18/2019 8:[address] ANGIOGRAM OF THE CHEST CLINICAL HISTORY: Dyspnea. COMPARISON STUDY: Chest x-ray dated 05/18/2019. Chest CT dated 07/25/2017. TECHNIQUE: Following the IV administration of 119 cc of Optiray 320, CT angiogra m of the chest was performed from the upper abdomen to the thoracic inlet utilizing the pulmonary embolus protocol. Images are reviewed in the axial, sagittal, and coronal planes. 3-D MIPS images are created and assessed. IV contrast was administered without complication. A dose lowering technique was utilized adhering to the principles of ALARA. The examination is degraded by motion artifact, as well as by streak artifact from the arms which could not be elevated above the chest and metallic orthopedic spinal hardware. CT DOSE: 420.06 mGy.cm FINDINGS: Thyroid: Imaged portions of the thyroid gland are normal in size and attenuation. Thoracic aorta: There is atherosclerotic calcification of the thoracic aorta, which is normal in caliber and demonstrates standard 3-vessel arch anatomy. No dissection is seen. Pulmonary vasculature: The main pulmonary arteries are mildly dilated suggesting pulmonary artery hypertension. There is a small volume of chronic thrombus present within the distal left main pulmonary artery. This extends into the left lower lobe pulmonary artery. Trace chronic thrombus is also present within a segmental branch of the right lower lobe pulmonary artery (axial image #109). There is no evidence of acute pulmonary embolus within the main, lobar, or segmental pulmonary branches to suggest pulmonary embolus. Heart: A 2-lead cardiac pacemaker is present in the left chest wall. The heart is enlarged noting trace pericardial effusion. The coronary arteries are densely calcified. Lungs and pleural spaces: Moderate to advanced emphysematous change is identi fied. Fat-containing Bochdalek hernias are seen bilaterally. Secretions are noted in the distal trachea, and the right mainstem bronchus. There is near complete occlusion of several right lower lobe airways. Debris/mucus plugging is also identified within the right middle lobe airways. There are trace pleural effusions and dependent atelectasis. No airspace consolidation is seen typical for pneumonia. Foci of parenchymal scarring are scattered throughout both lungs. A calcified granuloma is noted in the left upper lobe. Mediastinum: There are mildly enlarged mediastinal lymph nodes. A subcarinal node on image #156 measures 1.9 cm in short axis. AP window nodes measure up to 1.6 cm in short axis. Mary: Clear. Axillae: There is no axillary lymphadenopathy. Upper abdomen: There is a moderate hiatal hernia. A 3.6 cm cyst is noted in the upper pole of the right kidney. Skeletal structures: The skeletal structures are osteopenic. There is a mild chronic compression deformity of T11 with retropulsed fragments. There is extensive thoracolumbar spinal fusion hardware. There are numerous healed left posterior rib fractures. No lytic or blastic bony lesions are seen. Soft tissues: Gynecomastia is noted. IMPRESSION: 1. Streak and motion compromised examination. 2. There is no evidence of acute pulmonary embolus in the main, lobar, or segmental pulmonary arteries. 3. There is a small volume of chronic pulmonary embolus as above. The volume of chronic thrombus has decreased from 07/25/2017. 4. There is intraluminal debris within the trachea and right mainstem bronchus, with near complete opacification of several right lower lobe airways. Correlate clinically for evidence of aspiration. 5. There is no airspace consolidation typical for pneumonia. 6. Trace pleural effusions. 7. Moderate to advanced emphysema. 8. Cardiomegaly and cardiac pacemaker. 9. Moderate hiatal hernia. 10. Mildly enlarged mediastinal lymph nodes are nonspecific and similar to previous. 11. Additional findings as above. ACT 112: Negative or not required by law. Electronically signed by: Keny Shah M.D. 05/18/2019 9:21 AM SINGLE VIEW CHEST CLINICAL HISTORY: Endotracheal tube placement. FINDINGS: An AP, portable, supine chest radiograph is compared to chest x-ray and chest CT performed earlier the same day 05/18/2019. The examination is degraded by portable technique and patient rotation. An endotracheal tube has been placed. The tip projects 3.5 cm above the grace.A 2-lead cardiac pacemaker is unchanged in position and partially obscures the left mid chest. The heart is enlarged and there is atherosclerotic calcification of the thoracic aorta. Enlargement of the central pulmonary arteries indicates pulmonary artery hypertension. The pulmonary vasculature is noncongested. Advanced emphysema and chronic interstitial thickening are similar to previous. No airspace consolidation or large pleural effusion is identified. Mild elevation of the r ight hemidiaphragm has increased from previous. No pneumothorax is seen. The skeletal structures are osteopenic. Extensive thoracolumbar fusion hardware is in place. IMPRESSION: 1. An endotracheal tube has been placed as above. 2. Cardiomegaly and cardiac pacemaker. There is no radiographic evidence of congestive failure. 3. Advanced emphysema. 4. No airspace consolidation or large pleural effusion is identified. 5. Mild elevation of the right hemidiaphragm has increased from previous. Electronically signed by: Keny Shah M.D. 05/18/2019 9:25 AM ECG Data Attestation: I personally reviewed and interpreted this ECG as follows: Indication: + SOB/dyspnea Rate (beats per minute): 73 Rhythm: + sinus rhythm ECG Intervals/blocks: + First degree AV block ECG Findings: + Other (MI, QR, and QRS within normal limits; baseline artifact due to movement) Blood Pressure Blood Pressure Findings: Elevated blood pressure Blood Pressure Disposition: further management by hospitalist REGINA Narrative 0700: EMR reviewed. The patient is an oxygen-dependent paraplegic. He has had multiple visits for sepsis from an indwelling Gupta catheter. He was recently admitted on April 30, and he was discharged on May 16, 2 days ago, for sepsis. 0707: The patient was evaluated in room A02. A complete history and physical exam was performed. 0823: Called to bed by nursing. Patient developed acute respiratory distress. His oxygen saturation was 40% on the 2 L nasal cannula that he usually wears. Patient was switched to nonrebreather mask which improved his oxygen saturation to 60%. Patient's is at bedside. She states that the patient is a full code and if needed she does want the patient to be on ventilator and intubated if needed. Patient was started on BiPAP. The plan is is that if the patient does not tolerate BiPAP then we will attempt high flow nasal cannula and Vapotherm. If both of these noninvasive ventilation methods are not successful, then we will intubate the patient. Patient will also be given hour-long DuoNeb treatment as well as Solu-Medrol 125 mg. Patient appeared extremely anxious she was given 1 mg of Ativan IV push also. There is also concern for PE given the patient's recent hospitalization and immobilization. Patient be taken for stat CT of the chest once he is stabilized. Labs are within normal limits. Patient's VBG showed a pH of 7.33 and a PCO2 of 66. Chest x-ray showed advanced emphysema. 0845: Patient was moved to resuscitation bay. Upon arrival in resuscitation bay the patient's oxygen saturation improved into the 90s on BiPAP and he is still receiving hour-long DuoNeb treatment. Given the patient's acute respiratory distress, I conducted a bedside thoracic ultrasound which showed no pneumothorax bilaterally. Will discuss with hospitalist for admission and likely placement in the ICU. 0857: CTA of the chest reviewed by me showed no large PE. I spoke with Sunshine Mendes, [facility], about the patients case. She will further evaluate the patient with Dr. Khoury. I spoke with Dr. Wilkins, Critical care medicine [facility], about the patients case. He will further evaluate the patient. 0914: Called to bed by nursing again. The patient is in the resuscitation bay and his oxygen saturation is down in the 60s while on the BiPAP. Patient is having extreme difficulty breathing. Patient's is at bedside and was again asked if the patient would want to be on ventilator which she stated yes. Given the low oxygen saturation while on BiPAP and the recurrence of respiratory distress, the patient was intubated. See procedure note. 0920: I reassessed the patient, and Dr. Wilkins was at bedside. We have reviewed the post intubation x-ray together which showed that the patient could have aspirated. Patient was given Zosyn IV piggyback in the emergency department. Impression & Plan Respiratory failure, Aspiration pneumonia Discharge Plan Visit Data *Final* Discharge Date/Time: 05/18/19 10:52 Chief Complaint: Shortness of Breath/Dyspnea Stated Complaint: Shortness of breath ED Provider: Tenzin Garcia Discharge Problem: Respiratory failure, Aspiration pneumonia Patient Disposition: Admitted As Inpatient Discharge Instructions Interventions: ED Discharge Assessment Last Done: 05/18/19 10:52 Discharge Problem: Respiratory failure Qualifiers: Chronicity: unspecified Respiratory failure complication: hypoxia Qualified Code(s): J96.91 - Respiratory failure, unspecified with hypoxia Aspiration pneumonia Qualifiers: Aspiration pneumonia type: unspecified Laterality: unspecified laterality Lung location: unspecified part of lung Qualified Code(s): J69.0 - Pneumonitis due to inhalation of food and vomit The scribe's documentation has been prepared under my direction and personally reviewed by me in its entirety. I confirm that the note above accurately reflects all work, treatment, procedures, and medical decision making performed by me.
--- NOTE | 2019-05-18 11:47 | XRay Report ---
SINGLE VIEW CHEST CLINICAL HISTORY: Status post bronchoscopy. FINDINGS: 2 AP, portable, upright chest radiographs are compared to chest x-rays and chest CT perform ed earlier the same day 05/18/2019. The examination is degraded by portable technique and patient rotat ion. An enteric tube has been placed. This projects below the diaphragm over the stomach. The tip is not visualized. An endotracheal tube is likely unchanged in position .A 2-lead cardiac pacemaker is a gain noted and partially obscures the left mid chest. The heart is enlarged and there is atherosclero tic calcification of the thoracic aorta. Enlargement of the central pulmonary arteries indicates pulm onary artery hypertension. The pulmonary vasculature is noncongested. Advanced emphysema and chronic interstitial thickening are similar to previous. No airspace consolidation is identified. Trace pleur al effusions are noted. No pneumothorax is seen. The skeletal structures are osteopenic. Extensive th oracolumbar fusion hardware is in place. Excreted IV contrast is present within the renal collecting systems. IMPRESSION: 1. No pneumothorax is identified post procedure. 2. Endotracheal and enteric tubes are in place as above. 3. Cardiomegaly and cardiac pacemaker. There is no radiographic evidence of congestive failure. 4. Advanced emphysema. 5. No airspace consolidation is seen. 6. Trace pleural effusions are new from previous. Electronically signed by: Keny Shah M.D. 05/18/2019 11:46 AM
[2019-05-18] MEDS: fentaNYL citrate 100 MCG/2 ML VIAL IV PRN ×4 (12:56→21:01)
[2019-05-18] MEDS ORDERED: LACTATED RINGER'S 500 ML IV ONE (13:12)
[2019-05-18] MEDS ORDERED: LACTATED RINGER'S 1,000 ML IV ONE (13:45)
[2019-05-18 14:03] LABS: Base Excess ABG -1.9 mEq/L (-9-1.8); HCO3 ABG 23 mmol/L (19-24); PCO2 ABG 38 mmHg (35-46); PO2 ABG 89 mmHg (80-95)
[2019-05-18 14:05] LABS: Allen Test Pos (Pos)
--- NOTE | 2019-05-18 14:27 | Procedure Note ---
Procedure Note Date of Service May 18, 2019 Supervising Physician Co-Signing Physician Notes Critical CARE addendum: Bedside Ultrasound: Lung: Bilateral posterior B-lines, no pleural effusion, bilateral anterior a lines. Heart: Decreased ejection fraction, decreased septal motion, RVOT normal in size, no pericardial effusion IVC max 2 cm, IVC min 1.5 cm. Minimal variability. Patient got 1 L of fluid no more fluids after that. Abdomen: No ascites, urinary bladder has Gupta catheter in place. Patient is very sensitive to propofol. DC propofol and give fentanyl as needed for agitation. Coding CPT Codes Pulmonary/Thoracic - Pulmonary and Thoracic: 87579 US, Chest, real time with imaging documentation ([id number]) [facility] Procedure Codes (Charges) Pulmonary/Thoracic Procedure 2: Pulmonary and Thoracic: 75516 US, Chest, real time with imaging documentation
[2019-05-18] MEDS: PIPERACILLIN/TAZOBACTAM 4.5 GM in DEXTROSE 5% 100 ML IV SCH ×2 (14:43→21:04)
[2019-05-18] MEDS: HEPARIN SOD 5,000 UNIT/0.5 ML VIAL SQ SCH ×2 (14:43→21:05)
[2019-05-18] MEDS ORDERED: CARBOHYDRATES FOR HYPOGLYCEMIA PO PRN (18:07)
[2019-05-18] MEDS ORDERED: GLUCAGON FOR INJ 1 MG VIAL SQ PRN (18:07)
[2019-05-18] MEDS ORDERED: GLUCOSE 10 TABS/TUBE PO PRN (18:07)
[2019-05-18] MEDS ORDERED: GLUCOSE 40% GEL 15 GM TUBE PO PRN (18:07)
[2019-05-18] MEDS ORDERED: DEXTROSE 50% 50 ML SYRINGE IV PRN (18:07)
[2019-05-18] MEDS ORDERED: D5W AND 1/2NSS 1,000 ML IV SCH (18:15)
[2019-05-18] MEDS ORDERED: ETOMIDATE 2 MG/ML 20 ML VIAL IV ONE (19:50)
[2019-05-18] MEDS ORDERED: SUCCINYLCHOLINE CHLORIDE 20 MG/ML 10 ML VIAL IV ONE (19:50)
[2019-05-18] MEDS: INSULIN ASPART 100 UNITS/ML 3 ML PEN SC SCH (19:58)
[2019-05-18] MEDS: NORMOSOL-R 1,000 ML IV SCH (20:43)
--- NOTE | 2019-05-18 22:11 | Electrocardiogram Report ---
Test Reason : Blood Pressure : / mmHG Vent. Rate : 073 BPM Atrial Rate : 073 BPM P-R Int : 288 ms QRS Dur : 074 ms QT Int : 362 ms P-R-T Axes : 000 031 -11 degrees QTc Int : 398 ms Poor data quality, interpretation may be adversely affected Sinus rhythm with 1st degree A-V block Anterior infarct Abnormal ECG When compared with ECG of 14-MAY-2019 15:23, QRS duration has decreased Premature ventricular complexes are no longer Present Confirmed by Blair Crain ([id number]) on 05/18/2019 10:11:01 PM Referred By: Confirmed By:Blair Crain
[2019-05-19] MEDS: fentaNYL citrate 100 MCG/2 ML VIAL IV PRN (00:28)
[2019-05-19] MEDS: INSULIN ASPART 100 UNITS/ML 3 ML PEN SC SCH ×3 (00:35→20:48)
[2019-05-19 01:56] LABS: Hematocrit (blood only) 35.2 % (42-52); Hemoglobin 12.1 g/dL (14.0-18.0); Mean Corpuscular Hgb Conc 34.4 g/dL (32-36); Mean Corpuscular Volume 87.3 fL (80-100); Mean Platelet Volume 9.3 fL (7.4-10.4); Platelet Count 253 K/uL (130-400); RDW Coefficient of Variation 13.8 % (11.5-14.5); RDW Standard Deviation 43.7 fL (36.4-46.3); Red Blood Count 4.03 M/uL (4.7-6.1); White Blood Count 10.93 K/uL (4.8-10.8)
[2019-05-19 02:14] LABS: Albumin Level 2.7 gm/dl (3.4-5.0); BUN Creatinine Ratio 15.8 (10-20); Calcium 8.5 mg/dl (8.5-10.1); Creatinine Clr Calc Pharmacy 33.9 ml/min; Est GFR (African American) 66.4; Est GFR (Non-African American) 57.3; Magnesium 1.6 mg/dl (1.8-2.4); Potassium 3.9 mmol/L (3.5-5.1)
[2019-05-19 02:16] LABS: Albumin Globulin Ratio 0.6 (0.9-2); Bilirubin,Total 0.4 mg/dl (0.2-1); Globulin 4.3 gm/dl (2.5-4.0); Phosphorus 2.1 mg/dl (2.5-4.9)
[2019-05-19] MEDS: NORMOSOL-R 1,000 ML IV SCH (03:04)
[2019-05-19] MEDS: MAGNESIUM SULFATE / D5W 1 GM/100 ML BAG IV SCH ×2 (03:50→04:46)
[2019-05-19] MEDS: PIPERACILLIN/TAZOBACTAM 4.5 GM in DEXTROSE 5% 100 ML IV SCH ×3 (05:11→21:40)
[2019-05-19] MEDS: HEPARIN SOD 5,000 UNIT/0.5 ML VIAL SQ SCH (05:12)
[2019-05-19] MEDS ORDERED: ALBUMIN 5% 250 ML IV ONE (05:30)
--- NOTE | 2019-05-19 07:37 | XRay Report ---
SINGLE VIEW CHEST CLINICAL HISTORY: Respiratory failure. FINDINGS: 2 AP, portable, upright chest radiographs are compared to chest x-rays and chest CT dated . The examination is degraded by portable technique and patient rotation. Endotracheal and ent tiara tubes are unchanged in position.A 2-lead cardiac pacemaker is again noted. The heart is enlarged and there is atherosclerotic calcification of the thoracic aorta. Enlargement of the central pulmona ry arteries indicates pulmonary artery hypertension. The pulmonary vasculature is noncongested. Advan kim emphysema and chronic interstitial thickening are similar to previous. No airspace consolidation or large pleural effusion is identified. No pneumothorax is seen. The skeletal structures are osteope nohemi. Extensive thoracolumbar fusion hardware is in place. Excreted IV contrast is present within the renal collecting systems. IMPRESSION: 1. Stable lines and tubes. 2. Cardiomegaly and cardiac pacemaker. There is no radiographic evidence of congestive failure. 3. Advanced emphysema. 4. No airspace consolidation or large pleural effusion is seen. Electronically signed by: Tiara Shah M.D. 05/19/2019 7:35 AM
[2019-05-19] MEDS ORDERED: DEXMEDETOMIDINE HCL 200 MCG in SODIUM CHLORIDE 0.9% 48 ML IV SCH (08:35)
[2019-05-19] MEDS ORDERED: PHARMACY GLYCEMIC MGMT CONSULT PRN (08:37)
--- NOTE | 2019-05-19 08:59 | Critical Care Progress Note ---
Date of Service May 19, 2019 Assessment & Plan (1) Acute respiratory failure with hypoxia: I personally reviewed his prior chest x-ray and CTA of the chest which demonstrates chronic thromboembolic disease and advanced emphysema. -- VDRF secondary to acute hypoxic respiratory failure We will go ahead and extubate him today to BiPAP. I suspect his tachypnea is related to anxiety and resolving sepsis. He is status post bronchoscopy from yesterday. Follow cultures from [facility]. --History of chronic UTI Secondary to indwelling Gupta secondary to paraplegia and neurogenic bladder With last treatment being done on 05/14/2019 Urine culture growing gram-negative rods. He is currently on Zosyn. He is also colonized with MRSA. He seems to be improving with antibiotics. --COPD with emphysema Keep O2 saturation between 88 to 92% Continue with inhaled bronchodilators --Systolic CHF Ejection fraction 30 to 35% Strict in and out --Paroxysmal A. fib with history of PE On CT a patient has evidence of chronic PE on the left lower lobe Continue with Xarelto --Diabetes mellitus with hyperglycemia Pharmacy helping us manage his blood sugars. --DVT prophylaxis I have started him on prophylactic Lovenox. We can likely switch him to Xarelto later today. He will need to be discharged with a noninvasive ventilator such as a trilogy ventilator as this may improve his mortality related to COPD and chronic hypercapnic and hypoxemic respiratory failure. This should improve his geoff tilation in the long run and prevent further exacerbations. If he is able to tolerate nasal cannula later today, I think he can be transferred to the floor. Goals of care discussion to be had with palliative care. (2) Aspiration pneumonia: (3) COPD with emphysema: (4) Paraplegia: (5) History of pulmonary embolism: (6) Hyperglycemia: (7) Lactic acidosis: Subjective Patient is intubated. He is sitting up and watching television. He responds to commands and raises his hands and head off the bed when asked. Otherwise review of systems is limited given the patient is intubated. Physical Exam Physical Exam: Constitutional: No acute distress, intubated, sedated HEENT: PERRLA, ETT Respiratory system: Mildly tachypneic. Clear to auscultation bilaterally. CVS: S1-S2 positive, no murmurs or gallops, tachycardia Abdomen: Soft, nontender, nondistended, positive bowel sounds x4 Extremities: +2 pulses bilaterally radialis/ dorsalis pedis, no cyanosis, no edema Neuro: Patient following commands. Lower extremity paralysis that is chronic. Psych: Appears to be alert. Unable to assess orientation given intubation. G/U: Positive Gupta Skin: no rashes, warm and dry Lymphatic: no cervical or axillary lymphadenopathy Results & Data ([facility]) Vital Signs (Past 12 Hours) Vital Signs Temp Pulse Pulse Resp BP BP Pulse Ox 05/19/19 07:43 70 19 97 05/19/19 06:00 90 96 05/19/19 05:56 84 89/51 L 95 05/19/19 05:23 101 H 84/48 L 96 05/19/19 05:16 112 H 95/57 L 96 05/19/19 05:13 18 05/19/19 05:00 136 H 96 05/19/19 04:50 63 14 97 05/19/19 04:23 65 92/50 L 97 05/19/19 04:00 97.7 F 63 66 14 92/49 L 98 05/19/19 03:23 65 92/49 L 97 05/19/19 03:00 75 97 05/19/19 02:23 82 109/62 97 05/19/19 02:00 81 96 05/19/19 01:23 90 117/66 98 05/19/19 01:20 103 H 24 97 05/19/19 01:00 87 96 05/19/19 00:23 126 H 140/77 96 05/19/19 00:00 97.7 F 106 H 117 H 27 H 135/77 97 05/18/19 23:23 111 H 135/72 96 05/18/19 23:00 96 H 97 05/18/19 22:24 84 14 96 05/18/19 22:23 92 H 105/68 96 05/18/19 22:00 79 96 05/18/19 21:23 86 102/63 96 05/18/19 21:00 98 H 97 Coding Level of Care Code Critical Care 1st 30-74 mins Diagnoses Acute respiratory failure with hypoxia J96.01 Aspiration pneumonia J69.0 COPD with emphysema J43.9 Paraplegia G82.20 History of pulmonary embolism Z86.711 Hyperglycemia R73.9 Lactic acidosis E87.2 Time Spent (min) 30
[2019-05-19] MEDS ORDERED: LANTUS PER UNIT CHARGE SQ ONE (09:00)
[2019-05-19] MEDS ORDERED: INSULIN ASPART 100 UNITS/ML 3 ML PEN SC ONE (09:00)
[2019-05-19] MEDS ORDERED: ETOMIDATE 2 MG/ML 20 ML VIAL IV ONE (09:11)
[2019-05-19] MEDS ORDERED: SUCCINYLCHOLINE CHLORIDE 20 MG/ML 10 ML VIAL IV ONE (09:12)
[2019-05-19] MEDS ORDERED: SODIUM PHOSPHATE 15 MMOL in SODIUM CHLORIDE 0.9% 250 ML IV ONE (09:45)
[2019-05-19] MEDS: LACTATED RINGER'S 1,000 ML IV SCH (10:12)
[2019-05-19] MEDS ORDERED: FAMOTIDINE 20 MG in SYRINGE 3 ML IV SCH (11:00)
--- NOTE | 2019-05-19 11:09 | Palliative Care Consultation ---
Date of Consultation May 19, 2019 Assessment & Plan (1) Goals of care, counseling/discussion: -88 year old male patient with PMH ischemic cardiomyopathy with EF ~35%, AICD placement, advanced emphysema, severe pulmonary hypertension, posttraumatic paraplegia with neuro genic bladder and indwelling Gupta, and others, presented to the hospital over the weekend with increased SOB and respiratory distress. Patient was found to have aspiration pneumonia. Underwent bronchoscopy on 05/18 with cleaning out of the RLL-- food and secretions. Patient has now had three hospitalizations in the last month, mostly for recurrent UTI. Patient is actually on home hospice care through [facility] for his end-stage cardiac disease. On previous admissions, patient was DNR/DNI. During this admission in the ED, rescinded the DNR/DNI and stated she did want patient to be intubated after he failed BIpap trial. Patient was intubated and was successfully extubated this morning. He was extubated first to bipap, and now is on his usual home oxygen amount of 2LNC. Palliative care is consulted to discuss goals of care. -Met with patient and his daughter Jazmine this morning in room 107. Patient is pleasantly confused. Told me his name and that he was in the hospital. Could not tell me the month or the year. Did not know why he was in the hospital, could not participate in much other conversation. Per documentation, patient has been confused during previous admissions that was thought to be due to infection. His states he is oriented at home. -Talked first with Jazmine, then patient's and other daughter, Peggy, presented to the room and we talked further. -Peggy stated, "He's not really on hospice. We were told it is not end of life care." "We were told by one of our caregivers that this hospice care would just provide aides and a nurse to come see him." We discussed the hospice philosophy at length, as well as what qualifies a person for hospice. Talked about patient's medical conditions such as the ischemic cardiomyopathy, weak heart, emphysema, etc. Patient's and daughters agree that patient's issues cannot be fixed. The question is at what point would he not want to continue coming back to the hospital and especially undergoing aggressive measures. -Patient's states that she does not think she would want to bring patient back to the hospital for this issue again and would likely be agreeable to just keeping him home and keeping him comfortable. Daughter Peggy agreed. -Discussed code status. Patient's and daughter both agree that if patient's heart stops, they would not want any CPR/chest compressions and that if his breathing fails, they do not want him to be reintubated. -I asked about continuing hospice care at home based on our discussion about what hospice is and what patient/family goals are. Patient's said "I'll have to talk to him about it." I did state that in patient's current condition, he will not likely be able to make any decisions on his own. agrees. -Plan for now is to continue current medical treatment. Continue abx and medications. Bipap okay if needed. No further intubation. Possibly back home on hospice pending patient's family's decision. -We will continue to follow along. (2) Aspiration pneumonia: Aspiration pneumonia type: unspecified Laterality: unspecified laterality Lung location: unspecified part of lung Qualified Code(s): J69.0 - Pneumonitis due to inhalation of food and vomit (3) Respiratory failure: Chronicity: unspecified Respiratory failure complication: hypoxia Qualified Code(s): J96.91 - Respiratory failure, unspecified with hypoxia (4) COPD with emphysema: (5) Paraplegia: Supervising Physician Co-Signing Physician Notes Chart reviewed, pt seen and examined. Pt's granddaughter in law at bedside. Pt awake, alert, eating everything on his plate for lunch with no s/s of aspiration. Pt does not recall events of yesterday, but does recall who won the [employer] [place] PE: awake, alert, NAD HEENT: EOMI, [place] Resp: unlabored, clear CV: RR ABD, soft, NT Ext: no edema Neuro: oriented to person and place only Agree with above note, assessment and plan as per SHARON Blanc. Will cont to follow and assist family with medical decision making as well as supporting pt's History of Present Illness Attending Physician: Sachin Palafox MD History of Present Illness This 88 year old male patient with PMH ischemic cardiomyopathy with EF ~35%, AICD placement, advanced emphysema, severe pulmonary hypertension, posttraumatic paraplegia with neuro genic bladder and indwelling Gupta, and others, presented to the hospital over the weekend with increased SOB and respiratory distress. Patient was found to have aspiration pneumonia. Underwent bronchoscopy on 05/18 with cleaning out of the RLL-- food and secretions. Patient has now had three hospitalizations in the last month, mostly for recurrent UTI. Patient is actually on home hospice care through [facility] for his end-stage cardiac disease. On previous admissions, patient was DNR/DNI. During this admission in the ED, rescinded the DNR/DNI and stated she did want patient to be intubated after he failed BIpap trial. Patient was intubated and was successfully extubated this morning. He was extubated first to bipap, and now is on his usual home oxygen amount of 2LNC. Palliative care is consulted to discuss goals of care. Thank you kindly for this consult. Palliative care team will follow as needed. Allergies Allergy/AdvReac Type Severity Reaction Status Date / Time banana Allergy Mild Abdominal Verified 04/30/19 18:13 Pain nitrofurantoin Allergy Unknown Unknown Verified 04/30/19 18:13 Sulfa (Sulfonamide Allergy Unknown Unknown Verified 04/30/19 18:13 Antibiotics) NSAIDS (Non-Steroidal AdvReac Severe internal Verified 04/30/19 18:13 Anti-Inflamma bleeding Food Allergy Severe ANAPHYLAXIS Uncoded 04/30/19 18:13 WITH RADISHES/ DIFFICULTY BREATHING HORSERADISH Home Medications Home Medications Medication Instructions Recorded Confirmed Type Lactinex 1 tab PO QAM 04/30/19 05/06/19 History Symbicort 1 puff INHALATION BID PRN 04/30/19 05/06/19 History albuterol sulfate 1 - 2 puff INHALATION Q6H PRN 04/30/19 05/06/19 History albuterol sulfate 2.5 mg INHALATION Q6H PRN 04/30/19 05/06/19 History atorvastatin 40 mg PO QAM 04/30/19 05/06/19 History cholecalciferol (vitamin D3) 1,000 unit PO QAM 04/30/19 05/06/19 History [Vitamin D3] coenzyme Q10 [CoQ-10] 100 mg PO HS 04/30/19 05/06/19 History escitalopram oxalate 10 mg PO QAM 04/30/19 05/06/19 History krill oil 500 mg PO QAM 04/30/19 05/06/19 History nystatin 1 applic TOPICAL TID 04/30/19 05/06/19 History omeprazole 40 mg PO QAM 04/30/19 05/06/19 History oxybutynin chloride 10 mg PO QAM 04/30/19 05/06/19 History fluticasone propionate [Flonase 2 spray INTRANASAL DAILY PRN 05/06/19 05/06/19 History Allergy Relief] guaifenesin [Mucinex] 600 mg PO Q12H PRN 05/06/19 05/06/19 History multivitamin 1 tab PO HS 05/06/19 05/06/19 History ciprofloxacin HCl 500 mg PO BID 7 Days #14 tab 05/15/19 Rx rivaroxaban [Xarelto] 15 mg PO PM #30 tab 05/16/19 Rx Patient History Medical History (Updated 05/19/19 @ 08:58 by Bertin Macias MD) Acrochordon Acute UTI (Inactive) Allergic rhinitis Bacteremia Blister of foot Bloating Breast lump C. 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) COPD (chronic obstructive pulmonary disease) (Chronic) Coronary artery disease, occlusive (Chronic) Decubitus ulcer of sacral region Diarrhea Elevated prostate specific antigen (PSA) Esophageal reflux (Acute) Family history of cancer (10/26/12) Folliculitis Herpes zoster Hiatal hernia (Acute) History of pseudomembranous enterocolitis History of skin pruritus Hospital discharge follow-up Hx pulmonary embolism (Chronic) Hyperglycemia Hyperlipidemia (Acute) Hyponatremia Hypotension ICD (implantable cardioverter-defibrillator) in place (Acute) Incontinence Influenza Influenza A Ischemic cardiomyopathy (Chronic) Lactic acidosis Left ankle injury Muscle spasm Myocardial infarction Neoplasm of uncertain behavior of skin Neurogenic bladder (Chronic) Pacemaker (Chronic) Paraplegia (Resolved 05/20/12) Paroxysmal atrial fibrillation (Chronic) Personal history of urinary (tract) infection Pneumonia Post-traumatic paraplegia (Chronic) Pulmonary hypertension (Acute) Pyelonephritis Rash Reactive depression (situational) (Acute) Seborrheic keratosis Seborrheic keratosis, inflamed Sensorineural hearing loss (SNHL) of both ears (Acute) Sepsis Sepsis Sepsis due to Pseudomonas aeruginosa Shortness of breath SIRS (systemic inflammatory response syndrome) Systemic inflammatory response syndrome (SIRS) due to infectious process without acute organ dysfunction Urinary retention (Resolved) Vasovagal syncope Viral warts Wound, open Surgical History History of ankle surgery History of back surgery History of blood transfusion two within the last 10 years History of ileostomy History of partial colectomy Family History Other No pertinent family history Social History Preferred Language: [place] Communication Ability: Impaired Visual Impairment: No Limitations Hearing Ability: Use of Hearing Aid Stem Maker Required: No Beliefs That Will Affect Care: None marital status: Current Living Situation: Spouse Current Living Situation Comment: previous admission sent home with hospice care current occupational status: retired Other Information That Helps Us Care for You: No Feels Safe at Home: Yes Smoking Status: Never smoker Second Hand Exposure: No ; Hx Alcohol Use: No Hx Substance Use: No Childhood Exposure to Second-Hand Smoke: No Diet Comment: regular Dental Care, Regularly: No Physical Activity Frequency: Does not Exercise Physical Activity Frequency Comment: due to physical condition Seatbelt Use: always Sunscreen Use: No Review of Systems Review of Systems: No throat pain. No SOB or cough. No chest pain or edema. No nausea or vomiting. No abdominal pain. No musculoskeletal pain. Physical Exam Constitutional: comfortable; no acute distress ENMT: external ear and nose normal, oropharynx normal Respiratory: normal respiratory effort, lungs clear to auscultation Auscultation: + diminished lung sounds Cardiovascular: RRR, no murmur, no edema Gastrointestinal (Abdomen): Inspection/Auscultation: normal bowel sounds Percussion/Palpation: abdomen soft; abdomen nontender Neurologic: moves all extremities, awake and + confused Psychiatric: Orientation: alert, oriented to person and oriented to place; + not oriented to time Insight: + poor insight Results & Data Vital Signs (Past 12 Hours) Vital Signs Temp Pulse Pulse Resp BP BP Pulse Ox 05/19/19 10:30 05/19/19 10:25 79 133/67 93 05/19/19 09:23 93 H 146/89 H 95 05/19/19 09:00 90 23 95 05/19/19 08:55 19 05/19/19 08:23 105 H 144/84 H 97 05/19/19 07:43 70 19 97 05/19/19 07:23 36.9 C 84 108/61 98 05/19/19 06:00 90 96 05/19/19 05:56 84 89/51 L 95 05/19/19 05:23 101 H 84/48 L 96 05/19/19 05:16 112 H 95/57 L 96 05/19/19 05:13 18 05/19/19 05:00 136 H 96 05/19/19 04:50 63 14 97 05/19/19 04:23 65 92/50 L 97 05/19/19 04:00 36.5 C 63 66 14 92/49 L 98 05/19/19 03:23 65 92/49 L 97 05/19/19 03:00 75 97 05/19/19 02:23 82 109/62 97 05/19/19 02:00 81 96 05/19/19 01:23 90 117/66 98 05/19/19 01:20 103 H 24 97 05/19/19 01:00 87 96 05/19/19 00:23 126 H 140/77 96 05/19/19 00:00 36.5 C 106 H 117 H 27 H 135/77 97 05/18/19 23:23 111 H 135/72 96 Pulse Ox 05/19/19 10:30 93 05/19/19 10:25 05/19/19 09:23 05/19/19 09:00 05/19/19 08:55 05/19/19 08:23 05/19/19 07:43 05/19/19 07:23 05/19/19 06:00 05/19/19 05:56 05/19/19 05:23 05/19/19 05:16 05/19/19 05:13 05/19/19 05:00 05/19/19 04:50 05/19/19 04:23 05/19/19 04:00 05/19/19 03:23 05/19/19 03:00 05/19/19 02:23 05/19/19 02:00 05/19/19 01:23 05/19/19 01:20 05/19/19 01:00 05/19/19 00:23 05/19/19 00:00 05/18/19 23:23 Coding Level of Care Code 83759 Inpt Consult Level 3 Diagnoses Goals of care, counseling/discussion Z71.89 Aspiration pneumonia J69.0 Aspiration pneumonia type: unspecified Laterality: unspecified laterality Lung location: unspecified part of lung Respiratory failure J96.91 Chronicity: unspecified Respiratory failure complication: hypoxia COPD with emphysema J43.9 Paraplegia G82.20 Time Spent (min) 80 Time Spent Midlevel 80 minutes with >50% of the time spent at bedside with patient, family, and ICU team discussing condition, goals, hospice and end of life wishes.
[2019-05-19 11:21] LABS: iSTAT Arterial Blood Gas pCO2 43 mmHg (35-46); iSTAT Arterial Blood Gas pH 7.25 (7.35-7.45); iSTAT Hematocrit 37 % (42-52); iSTAT Hemoglobin 12.6 g/dl (14.0-18.0); iSTAT Potassium 3.7 mmol/L (3.3-5.0); iSTAT Sodium 137 mmol/L (135-144)
[2019-05-19 11:22] LABS: iSTAT Arterial Blood Gas HCO3 19 meg/L (19-24); iSTAT Arterial Blood Gas pO2 114 mmHg (80-95)
[2019-05-19 11:23] LABS: iSTAT Carbon Dioxide 20 mmol/L (24-31)
[2019-05-19 11:24] LABS: Patient Temperature 36.5; iSTAT Allen Test Acceptable; iSTAT FiO2 30 %; iSTAT Sample Type Arterial; iSTAT Site L Radial
[2019-05-19 11:26] LABS: iSTAT SpO2 96
--- NOTE | 2019-05-19 11:39 | XCELERA ---
[id number] \\[email or web address]\[id number]
[2019-05-19] MEDS ORDERED: INSULIN ASPART 100 UNITS/ML 3 ML PEN SC SCH ×2 (12:00→18:00)
--- NOTE | 2019-05-19 13:08 | Pharmacy Report ---
Pharmacy Glycemic Short Note 2 - Date of Service May 19, 2019 - Glycemic Short BSG Results (Last 24 hours): 05/18/19 05/18/19 05/19/19 17:47 19:40 00:00 Glucose POC Glucose 205 H 200 H 173 H 05/19/19 05/19/19 05/19/19 01:49 05:15 09:09 Glucose 161 H POC Glucose 203 H 135 H 05/19/19 12:28 Glucose POC Glucose 96 OUTPATIENT ANTIDIABETIC REGIMEN: * N/A * a1C = 5.8% 04/05/19 ASSESSMENT: * Patient admitted for acute resp failure likely secondary to aspiration * Patient required intubation in the ED however had been extubated this AM and is undergoing swallow eval * A1c consistent w/ "pre-diabetes" * Suspect hyperglycemia was more likely secondary to stressors as BSGs no long elevated * Will utilize correctional insulin only for the next 24 hrs and follow BSG trend PLAN FOR INPATIENT GLYCEMIC CONTROL: * Hold outpatient oral diabetes medications * Basal insulin * Lantus 5 units x 1 this AM due to hyperglycemia * Bolus insulin * NovoLog per scale ACHS or Q6hrs while NPO * Goal Range: Low 120 mg/dL - High 160 mg/dL * Correction Factor: 30 mg/dL/unit * Nutritional / Prandial insulin per carb ratio of 1 unit per -- grams CHO consumed PLAN FOR DISCHARGE: * given A1c results, no need for DM medications on discharge
--- NOTE | 2019-05-19 14:28 | Hospitalist Progress Note ---
Date of Service May 19, 2019 Assessment & Plan (1) Aspiration pneumonia: Bronch showed food particles in the airway. This could represent single episode vs. chronic aspiration. Given hospice status, no plan for further testing. - Continue abx per ICU team - Conservative aspiration precautions: * Pureed diet (can advance if patient wants with acknowledgement of further aspiration possible) * Alternate solids and liquids * Fully alert and upright for eating * Meds in carrier (e.g. applesauce or pudding) * Single bites/small sips/slow rate (2) Acute respiratory failure: Due to aspiration. S/p bronch on 05/18 with clear food contents in the airway. - As above (3) COPD (chronic obstructive pulmonary disease): Advanced. - O2 PRN - Return to inhalers per primary (4) CAD (coronary artery disease): Chronic, CAD with ischemic cardiomyopathy, HLD, paroxysmal A. fib, history of chronic pulmonary emboli 07/2017 on Xarelto with severe pulmonary hypertension. - Continue home meds per primary team. (5) ICD (implantable cardioverter-defibrillator) in place: Placed in 2008 for ischemic cardiomyopathy. - Presently wants this left on. (6) Ischemic cardiomyopathy: Last echo showing LVEF 30 to 35%. - Appears euvolemic today. (7) Paroxysmal atrial fibrillation: On Xarelto, monitor for any signs of acute bleed. - Holding full anticoagulation; on Lovenox DVT ppx dosing - Presently rate-controlled off rate-control meds (8) Hyperlipidemia: - On atorvastatin 40 mg QAM at home, holding all PO meds for now (9) Post-traumatic paraplegia: S/p traumatic injury involving T10-T12 burst fracture with subsequent paralysis and neurogenic bladder. - No inpatient needs (10) Neurogenic bladder: - Continue suprapubic catheter (11) Chronic indwelling Gupta catheter: - Last exchanged occurred on 05/06/19 at beginning of his previous admission (12) Esophageal reflux: May be contributing to his aspiration. - Conservative plans as above (13) DVT prophylaxis: Lovenox Subjective Very pleasant. Denies any issue. Reports no fevers/chills, chest pain, shortness of breath, abdominal pain, nausea, or vomiting. Physical Exam Constitutional: WD/WN, vitals as above Eyes: EOM intact bilaterally; no conjunctival abnormality ENMT: external ear and nose normal, oropharynx normal Neck: trachea midline, no thyromegaly normal visual inspection Respiratory: normal respiratory effort, lungs clear to auscultation no respiratory distress Auscultation: + crackles (Right side only) Cardiovascular: RRR, no murmur, no edema Gastrointestinal (Abdomen): Inspection/Auscultation: abdomen normal to inspection; abdomen not distended Musculoskeletal: no cyanosis or clubbing, extremities motor strength 5/5 Skin: no rashes, warm and dry Neurologic: moves all extremities and awake Psychiatric: Orientation: alert, oriented to person and cooperative Results & Data ([facility]) Vital Signs (Past 12 Hours) Vital Signs Temp Pulse Pulse Resp BP BP Pulse Ox 05/19/19 12:23 36.7 C 74 128/65 99 05/19/19 11:23 69 124/68 99 05/19/19 10:30 05/19/19 10:25 79 133/67 93 05/19/19 09:23 93 H 146/89 H 95 05/19/19 09:00 90 23 95 05/19/19 08:55 19 05/19/19 08:23 105 H 144/84 H 97 05/19/19 07:43 70 19 97 05/19/19 07:23 36.9 C 84 108/61 98 05/19/19 06:00 90 96 05/19/19 05:56 84 89/51 L 95 05/19/19 05:23 101 H 84/48 L 96 05/19/19 05:16 112 H 95/57 L 96 05/19/19 05:13 18 05/19/19 05:00 136 H 96 05/19/19 04:50 63 14 97 05/19/19 04:23 65 92/50 L 97 05/19/19 04:00 36.5 C 63 66 14 92/49 L 98 05/19/19 03:23 65 92/49 L 97 05/19/19 03:00 75 97 05/19/19 02:23 82 109/62 97 Pulse Ox 05/19/19 12:23 05/19/19 11:23 05/19/19 10:30 93 05/19/19 10:25 05/19/19 09:23 05/19/19 09:00 05/19/19 08:55 05/19/19 08:23 05/19/19 07:43 05/19/19 07:23 05/19/19 06:00 05/19/19 05:56 05/19/19 05:23 05/19/19 05:16 05/19/19 05:13 05/19/19 05:00 05/19/19 04:50 05/19/19 04:23 05/19/19 04:00 05/19/19 03:23 05/19/19 03:00 05/19/19 02:23 PG Care Time/CCT Total # of Minutes Spent Total Time Spent with Patient: Total time spent is greater than 50% in coordination of care (as documented) at patient's floor/unit and/or counseling patient: Coding Level of Care Code 05302 Subseq Hosp Care Lvl 3 Diagnoses Aspiration pneumonia J69.0 Aspiration pneumonia type: unspecified Laterality: unspecified laterality Lung location: unspecified part of lung Acute respiratory failure J96.00 COPD (chronic obstructive pulmonary disease) J44.9 CAD (coronary artery disease) I25.10 ICD (implantable cardioverter-defibrillator) in place Z95.810 Ischemic cardiomyopathy I25.5 Paroxysmal atrial fibrillation I48.0 Hyperlipidemia E78.5 Post-traumatic paraplegia T14.90XS Neurogenic bladder N31.9 Chronic indwelling Gupta catheter Z96.0 Esophageal reflux K21.9 DVT prophylaxis Z29.9 (1) Aspiration pneumonia Aspiration pneumonia type: unspecified Laterality: unspecified laterality Lung location: unspecified part of lung Qualified Code(s): J69.0 - Pneumonitis due to inhalation of food and vomit
[2019-05-19] MEDS: ENOXAPARIN INJ 30 MG/0.3 ML SYR SQ SCH (15:30)
[2019-05-19] MEDS ORDERED: Nursing to Pharmacy Communication ONE (20:30)
[2019-05-20 06:23] LABS: Hematocrit (blood only) 33.8 % (42-52); Hemoglobin 11.2 g/dL (14.0-18.0); Mean Corpuscular Hemoglobin 29.5 pg (25-34); Mean Corpuscular Hgb Conc 33.1 g/dL (32-36); Mean Corpuscular Volume 88.9 fL (80-100); Mean Platelet Volume 9.3 fL (7.4-10.4); Platelet Count 202 K/uL (130-400); RDW Coefficient of Variation 14.3 % (11.5-14.5); RDW Standard Deviation 46.9 fL (36.4-46.3); White Blood Count 10.05 K/uL (4.8-10.8)
[2019-05-20] MEDS: PIPERACILLIN/TAZOBACTAM 4.5 GM in DEXTROSE 5% 100 ML IV SCH ×3 (06:45→21:58)
[2019-05-20] MEDS: LACTATED RINGER'S 1,000 ML IV SCH (06:50)
[2019-05-20 06:55] LABS: Albumin Level 2.8 gm/dl (3.4-5.0); BUN Creatinine Ratio 16.6 (10-20); Calcium 8.4 mg/dl (8.5-10.1); Creatinine Clr Calc Pharmacy 40.5 ml/min; Est GFR (African American) 79.9; Est GFR (Non-African American) 68.9; Magnesium 2.3 mg/dl (1.8-2.4); Potassium 3.4 mmol/L (3.5-5.1)
[2019-05-20 06:58] LABS: Albumin Globulin Ratio 0.7 (0.9-2); Bilirubin,Total 0.5 mg/dl (0.2-1); Globulin 3.9 gm/dl (2.5-4.0); Total Protein 6.7 gm/dl (6.4-8.2)
[2019-05-20] MEDS: PANTOprazole 40 MG TAB PO SCH (08:31)
[2019-05-20] MEDS: ENOXAPARIN INJ 30 MG/0.3 ML SYR SQ SCH (08:31)
[2019-05-20] MEDS: INSULIN ASPART 100 UNITS/ML 3 ML PEN SC SCH ×4 (08:32→21:07)
--- NOTE | 2019-05-20 10:32 | Pharmacy Report ---
Pharmacy Glycemic Short Note 2 - Date of Service May 20, 2019 - Glycemic Short BSG Results (Last 24 hours): 05/19/19 05/19/19 05/19/19 12:28 16:50 20:35 Glucose POC Glucose 96 163 H 143 H 05/20/19 05/20/19 05:54 08:27 Glucose 101 H POC Glucose 113 H OUTPATIENT ANTIDIABETIC REGIMEN: * N/A * a1C = 5.8% 04/05/19 ASSESSMENT: / * BSGs well controlled over last 24 hrs * Will trial correctional insulin only at this time as stressors have decreased and pt's A1c consistent with "pre-DM". Patient is hospice status. * If BSGs well controlled over next 24 hrs, may consider reducing BSG frequency of DC of BSG checks 2/3 * Patient admitted for acute resp failure likely secondary to aspiration * Patient required intubation in the ED however had been extubated this AM and is undergoing swallow eval * A1c consistent w/ "pre-diabetes" * Suspect hyperglycemia was more likely secondary to stressors as BSGs no long elevated * Will utilize correctional insulin only for the next 24 hrs and follow BSG trend PLAN FOR INPATIENT GLYCEMIC CONTROL: * Basal insulin * none at this time * Bolus insulin * NovoLog per scale ACHS or Q6hrs while NPO * Goal Range: Low 120 mg/dL - High 160 mg/dL * Correction Factor: 30 mg/dL/unit * Nutritional / Prandial insulin per carb ratio of 1 unit per -- grams CHO consumed PLAN FOR DISCHARGE: * given A1c results, no need for DM medications on discharge
--- NOTE | 2019-05-20 11:03 | Palliative Care Progress Note ---
Date of Service May 20, 2019 Assessment & Plan (1) Goals of care, counseling/discussion: -Patient is stable today. Pleasantly confused and comfortable. Denies any pain or complaints. -Long discussion with patient's and daughters yesterday. After our discussion, patient's called the hospice agency this morning and told them that she is no longer interested in hospice care. -Plan is to continued medical treatment at this time while in hospital. He is currently DNR/DNI. -Uncertain of plan after hospitalization. I suspect patient's will want to take him home with home health. -We will continued to follow peripherally for any further palliative care needs. (2) Aspiration pneumonia: (3) Respiratory failure: (4) COPD with emphysema: (5) Paraplegia: Subjective Patient remains pleasantly confused and comfortably today. No new complaints. No family at bedside during my visit. Review of Systems Review of Systems: No throat pain. No SOB or cough. No chest pain or edema. No nausea or vomiting. No abdominal pain. No musculoskeletal pain. Physical Exam Constitutional: comfortable; no acute distress ENMT: external ear and nose normal, oropharynx normal Respiratory: normal respiratory effort, lungs clear to auscultation Auscultation: + diminished lung sounds Cardiovascular: RRR, no murmur, no edema Gastrointestinal (Abdomen): Inspection/Auscultation: normal bowel sounds Percussion/Palpation: abdomen soft; abdomen nontender Neurologic: moves all extremities, awake and + confused Psychiatric: Orientation: alert and oriented to person; + not oriented to time Insight: + poor insight Results & Data Vital Signs (Past 12 Hours) Vital Signs Temp Pulse Pulse Resp BP Pulse Ox 05/20/19 04:12 36.6 C 78 20 171/83 H 98 05/20/19 00:00 65 05/19/19 23:32 36.7 C 66 18 144/77 H 99 Coding Level of Care Code 05439 Subseq Hosp Care Lvl 2 Diagnoses Goals of care, counseling/discussion Z71.89 Aspiration pneumonia J69.0 Aspiration pneumonia type: unspecified Laterality: unspecified laterality Lung location: unspecified part of lung Respiratory failure J96.91 Chronicity: unspecified Respiratory failure complication: hypoxia COPD with emphysema J43.9 Paraplegia G82.20 Time Spent (min) 25 Time Spent Midlevel 25 minutes with >50% of the time spent at bedside with patient and IDT discussing plan of care. (1) Aspiration pneumonia Aspiration pneumonia type: unspecified Laterality: unspecified laterality Lung location: unspecified part of lung Qualified Code(s): J69.0 - Pneumonitis due to inhalation of food and vomit (2) Respiratory failure Chronicity: unspecified Respiratory failure complication: hypoxia Qualified Code(s): J96.91 - Respiratory failure, unspecified with hypoxia
--- NOTE | 2019-05-20 13:25 | Hospitalist Progress Note ---
Date of Service May 20, 2019 Assessment & Plan (1) Aspiration pneumonia: Bronch showed food particles in the airway. This could represent single episode vs. chronic aspiration. Given hospice status, no plan for further testing. - Continue abx per ICU team - Conservative aspiration precautions: * Pureed diet (can advance if patient wants with acknowledgement of further aspiration possible) * Alternate solids and liquids * Fully alert and upright for eating * Meds in carrier (e.g. applesauce or pudding) * Single bites/small sips/slow rate - Doing well today. No major concerns. Breathing at baseline. (2) Acute respiratory failure: Due to aspiration. S/p bronch on 05/18 with clear food contents in the airway. - As above (3) COPD (chronic obstructive pulmonary disease): Advanced. - O2 PRN - Restarted inhalers (4) CAD (coronary artery disease): Chronic, CAD with ischemic cardiomyopathy, HLD, paroxysmal A. fib, history of chronic pulmonary emboli 07/2017 on Xarelto with severe pulmonary hypertension. 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 - Presently wants this left on. (6) Ischemic cardiomyopathy: Last echo showing LVEF 30 to 35%. - Appears euvolemic today. (7) Paroxysmal atrial fibrillation: On Xarelto, monitor for any signs of acute bleed. 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 - No inpatient needs (10) Neurogenic bladder: - Continue suprapubic catheter (11) Chronic indwelling Gupta catheter: - Last exchanged occurred on 05/06/19 at beginning of his previous admission (12) Esophageal reflux: May be contributing to his aspiration. - Conservative plans as above (13) DVT prophylaxis: Apixaban Subjective He reports no symptoms. Feels well overall. Is quite tired though, and falls asleep during my interview. Reports no fevers/chills, chest pain, shortness of breath, abdominal pain, nausea, or vomiting. Physical Exam Constitutional: WD/WN, vitals as above Eyes: EOM intact bilaterally; no conjunctival abnormality ENMT: external ear and nose normal, oropharynx normal Neck: trachea midline, no thyromegaly normal visual inspection Respiratory: normal respiratory effort, lungs clear to auscultation no respiratory distress Auscultation: + crackles (Right side only) Cardiovascular: RRR, no murmur, no edema Gastrointestinal (Abdomen): Inspection/Auscultation: abdomen normal to inspection; abdomen not distended Musculoskeletal: no cyanosis or clubbing, extremities motor strength 5/5 Skin: no rashes, warm and dry Neurologic: moves all extremities and awake Psychiatric: Orientation: alert, oriented to person and cooperative Results & Data ([facility]) Vital Signs (Past 12 Hours) Vital Signs Temp Pulse Resp BP Pulse Ox 05/20/19 11:57 36.4 C L 68 18 92/61 L 99 05/20/19 04:12 36.6 C 78 20 171/83 H 98 PG Care Time/CCT Total # of Minutes Spent Total Time Spent with Patient: Total time spent is greater than 50% in coordination of care (as documented) at patient's floor/unit and/or counseling patient: Coding Level of Care Code 35285 Subseq Hosp Care Lvl 2 Diagnoses Aspiration pneumonia J69.0 Aspiration pneumonia type: unspecified Laterality: unspecified laterality Lung location: unspecified part of lung Acute respiratory failure J96.00 COPD (chronic obstructive pulmonary disease) J44.9 CAD (coronary artery disease) I25.10 ICD (implantable cardioverter-defibrillator) in place Z95.810 Ischemic cardiomyopathy I25.5 Paroxysmal atrial fibrillation I48.0 Hyperlipidemia E78.5 Post-traumatic paraplegia T14.90XS Neurogenic bladder N31.9 Chronic indwelling Gupta catheter Z96.0 Esophageal reflux K21.9 DVT prophylaxis Z29.9 (1) Aspiration pneumonia Aspiration pneumonia type: unspecified Laterality: unspecified laterality Lung location: unspecified part of lung Qualified Code(s): J69.0 - Pneumonitis due to inhalation of food and vomit
[2019-05-20] MEDS ORDERED: ALBUT/IPRATROP 3MG/0.5MG NEB 3 ML VIAL NEB PRN (13:27)
[2019-05-20] MEDS ORDERED: BUDESONIDE/FORMOTEROL FUMARATE 80/4.5 60 PUFFS/INHALER INH SCH (21:00)
[2019-05-21 04:34] VITALS: O2SAT 100
[2019-05-21] MEDS: PIPERACILLIN/TAZOBACTAM 4.5 GM in DEXTROSE 5% 100 ML IV SCH (05:19)
[2019-05-21 08:01] LABS: Hematocrit (blood only) 37.3 % (42-52); Hemoglobin 12.2 g/dL (14.0-18.0); Mean Corpuscular Hemoglobin 29.9 pg (25-34); Mean Corpuscular Hgb Conc 32.7 g/dL (32-36); Mean Corpuscular Volume 91.4 fL (80-100); Mean Platelet Volume 9.7 fL (7.4-10.4); Platelet Count 185 K/uL (130-400); RDW Coefficient of Variation 14.2 % (11.5-14.5); RDW Standard Deviation 48.2 fL (36.4-46.3); Red Blood Count 4.08 M/uL (4.7-6.1); White Blood Count 8.89 K/uL (4.8-10.8)
[2019-05-21] MEDS: PANTOprazole 40 MG TAB PO SCH (08:33)
[2019-05-21 08:34] LABS: BUN Creatinine Ratio 14.5 (10-20); Creatinine Clr Calc Pharmacy 44.2 ml/min; Est GFR (African American) 84.1; Est GFR (Non-African American) 72.5; Potassium 3.6 mmol/L (3.5-5.1)
[2019-05-21] MEDS: INSULIN ASPART 100 UNITS/ML 3 ML PEN SC SCH (08:34)
[2019-05-21] MEDS ORDERED: ESCITALOPRAM OXALATE 10 MG TAB PO SCH (09:00)
[2019-05-21] MEDS ORDERED: FLUTICASONE/VILANTEROL 100/25MCG 14 PUFFS/INHALER INH SCH (09:00)
[2019-05-21] MEDS ORDERED: ATORVASTATIN 40 MG TAB PO SCH (09:00)
[2019-05-21] MEDS ORDERED: RIVAROXABAN 15 MG TAB PO SCH (09:00)
[2019-05-21 11:21] VITALS: BP 148/81; PULSE 77; TEMP 97.5
--- NOTE | 2019-05-21 12:55 | Discharge Summary ---
Date of Service May 21, 2019 Admission HPI Per Admitting Provider This is an 88 yo male, who was recently admitted to our service for urosepsis from 05/06 to 05/15, discharged home on hospice, who he presents today for acute shortness of breath and dyspnea. The patient is awake during my visit able to answer questions, knows where he is knows his name, states he is feeling a little bit better breathing loza at this point in time while wearing BiPAP. ER attending preparing to intubate the patient as his respiratory status is very fluctuant, and has been worsening over the last 30 minutes. ICU has been notified and the case has been discussed with them, patient will go to the ICU. The patient's expresses that she wants her to be a full code at this point in time. The patient other PMHx includes paraplegia s/p traumatic injury involving T10- T12 burst fracture with subsequent paralysis and neurogenic bladder, CAD with ischemic cardiomyopathy, s/p ICD in 2008, last echo showing LVEF 30 to 35%, HTN, HLD, paroxysmal A. fib, history of chronic pulmonary emboli 07/2017 on Xarelto with severe pulmonary hypertension, recurrent urinary tract infections, indwelling catheter, most recently admitted for UTI involving enterococcus and Pseudomonas, depression, GERD, history of metabolic encephalopathy related to acute UTI. Principal Diagnosis Aspiration event Discharge Exam Constitutional WD/WN, vitals as above Eyes EOM intact bilaterally; no conjunctival abnormality ENMT external ear and nose normal, oropharynx normal Neck trachea midline, no thyromegaly normal visual inspection Respiratory normal respiratory effort, lungs clear to auscultation no respiratory distress Auscultation: + crackles (Right side only) Cardiovascular RRR, no murmur, no edema Gastrointestinal (Abdomen) Inspection/Auscultation: abdomen normal to inspection; abdomen not distended Musculoskeletal no cyanosis or clubbing, extremities motor strength 5/5 Skin no rashes, warm and dry Neurologic moves all extremities and awake Psychiatric Orientation: alert, oriented to person and cooperative Discharge Data Allergies Allergy/AdvReac Type Severity Reaction Status Date / Time banana Allergy Mild Abdominal Verified 04/30/19 18:13 Pain nitrofurantoin Allergy Unknown Unknown Verified 04/30/19 18:13 Sulfa (Sulfonamide Allergy Unknown Unknown Verified 04/30/19 18:13 Antibiotics) NSAIDS (Non-Steroidal AdvReac Severe internal Verified 04/30/19 18:13 Anti-Inflamma bleeding Food Allergy Severe ANAPHYLAXIS Uncoded 04/30/19 18:13 WITH RADISHES/ DIFFICULTY BREATHING HORSERADISH Consultations 05/18/19 08:57 ED Decision to Admit Stat 05/18/19 09:44 Consult Palliative Care Routine 05/18/19 10:32 Consult Case Management - Discharge Planning Routine Consult Rehab Spec Routine Ordered Studies 05/18/19 08:29 CT angio chest PE protocol Stat 05/18/19 13:45 US point of care ultrasound Urgent Hospital Course (1) Aspiration pneumonia: Bronch showed food particles in the airway. This could represent single episode vs. chronic aspiration. Given hospice status, no plan for further testing. - Conservative aspiration precautions: * Pureed diet (can advance if patient wants with acknowledgement of further aspiration possible) * Alternate solids and liquids * Fully alert and upright for eating * Meds in carrier (e.g. applesauce or pudding) * Single bites/small sips/slow rate - Doing well today. No major concerns. Breathing at baseline. No overt aspiration during this admission. Discharge on 3 more days of Augmentin. (2) Acute respiratory failure: Due to aspiration. S/p bronch on 05/18 with clear food contents in the airway. - As above (3) COPD (chronic obstructive pulmonary disease): Advanced. - O2 PRN - Restarted inhalers (4) CAD (coronary artery disease): Chronic, CAD with ischemic cardiomyopathy, HLD, paroxysmal A. fib, history of chronic pulmonary emboli 07/2017 on Xarelto with severe pulmonary hypertension. 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 - Presently wants this left on. (6) Ischemic cardiomyopathy: Last echo showing LVEF 30 to 35%. - Appears euvolemic today. (7) Paroxysmal atrial fibrillation: On Xarelto, monitor for any signs of acute bleed. 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 - No inpatient needs (10) Neurogenic bladder: - Continue suprapubic catheter (11) Chronic indwelling Gupta catheter: - Last exchanged occurred on 05/06/19 at beginning of his previous admission (12) Esophageal reflux: May be contributing to his aspiration. - Conservative plans as above (13) DVT prophylaxis: Apixaban Total Time Total Time Spent Total Time Spent (In Minutes): 35 Discharge Plan Discharge Items Patient Disposition: Home - Home Health Services Reason For Visit: ACUTE RESPIRATORY DISTRESS Discharge Diagnosis: Aspiration event Activity: Resume your previous activity Non-emergency contact: Primary Care Provider Call non-emergency contact if: your symptoms worsen Follow-up/Referrals: Iam Yang MD [Primary Care Provider] - 05/26/19 2:30 pm (This appointment is with Temi lópez. If you need to change this appointment, please call [phone]) Diet: Regular Diet Texture: Pureed (blended smooth) Addtl Attending Provider Instructions: Mr. Rockwell was admitted after a likely aspiration event. He was intubated and a bronchoscopy showed mucus and food particles in the right lung. After the bronchoscopy, he did very well and was on his normal home oxygen on discharge. He will need 3 additional days of antibiotics. This was sent to the pharmacy. Speech saw him and did not see any signs of overt aspiration. However, given the desire for him to keep eating and no interest in a feeding tube or other artificial feeding, it was determined that his diet should be restarted. Here are the recommendations from the speech therapist: * Pureed diet (can advance if patient wants with acknowledgement of further aspiration possible) * Alternate solids and liquids * Fully alert and upright for eating * Meds in carrier (e.g. applesauce or pudding) * Single bites/small sips/slow rate Pending Studies at Discharge: No Stand-Alone Forms: My [facility], Smoking Cessation Medications and DC Order Prescriptions: New amoxicillin-pot clavulanate [Augmentin] 875-125 mg tablet 1 tab PO BID Qty: 7 RF: 0 Continued atorvastatin 40 mg tablet 40 mg PO QAM RF: 0 albuterol sulfate 2.5 mg /3 mL (0.083 %) solution for nebulization 2.5 mg inhalation Q6H PRN (Reason: Shortness Of Breath Or Wheezing) RF: 0 oxybutynin chloride 10 mg tablet extended release 24hr 10 mg PO QAM RF: 0 omeprazole 40 mg capsule,delayed release(DR/EC) 40 mg PO QAM RF: 0 albuterol sulfate 90 mcg/actuation HFA aerosol inhaler 1 - 2 puff INHALATION Q6H PRN (Reason: Shortness Of Breath Or Wheezing) RF: 0 escitalopram oxalate 10 mg tablet 10 mg PO QAM RF: 0 Symbicort 160-4.5 mcg/actuation HFA aerosol inhaler 1 puff INHALATION BID PRN (Reason: Shortness Of Breath) RF: 0 nystatin 100,000 unit/gram powder 1 applic TOPICAL TID RF: 0 coenzyme Q10 [CoQ-10] 100 mg Capsule 100 mg PO HS RF: 0 cholecalciferol (vitamin D3) [Vitamin D3] 25 mcg (1,000 unit) Tablet 1,000 unit PO QAM RF: 0 Lactinex 1 million cell Tablet,Chewable 1 tab PO QAM RF: 0 krill oil 500 mg Capsule 500 mg PO QAM RF: 0 multivitamin Tablet 1 tab PO HS RF: 0 guaifenesin [Mucinex] 600 mg Tablet Extended Release 12hr 600 mg PO Q12H PRN (Reason: Congestion) RF: 0 fluticasone propionate [Flonase Allergy Relief] 50 mcg/actuation [place],Suspension 2 spray INTRANASAL DAILY PRN (Reason: Allergy Symptoms) RF: 0 Xarelto 15 mg tablet 15 mg PO PM Qty: 30 RF: 0 Discontinued ciprofloxacin HCl 500 mg Tablet 500 mg PO BID 7 Days Qty: 14 RF: 0 Discharge Orders: Discharge Order (Routine); Ordered 05/21/19 Ordered By: Sachin Palafox Admission Data Admit Date/Time: 05/18/19 09:14 Attending Provider: Sachin Palafox Admit Provider: Purnima Khoury Primary Care Provider: Iam Yang Other Providers: Sachin Palafox ; Purnima Khoury ; Rebecca Lee ; Annette Wilkins Coding Level of Care Code D/C Day Management >30 mins Diagnoses Aspiration pneumonia J69.0 Aspiration pneumonia type: unspecified Laterality: unspecified laterality Lung location: unspecified part of lung Acute respiratory failure J96.00 COPD (chronic obstructive pulmonary disease) J44.9 CAD (coronary artery disease) I25.10 ICD (implantable cardioverter-defibrillator) in place Z95.810 Ischemic cardiomyopathy I25.5 Paroxysmal atrial fibrillation I48.0 Hyperlipidemia E78.5 Post-traumatic paraplegia T14.90XS Neurogenic bladder N31.9 Chronic indwelling Gupta catheter Z96.0 Esophageal reflux K21.9 DVT prophylaxis Z29.9
== END 2019-05-21 14:20 | disposition home health service (06) | DRG 208 ==
LOC: ED 06:47 → SUATTDRO 09:14 → 1E 09:14 → 2W 05-19 17:04